=== PATIENT | male | born 1945 | race Caucasian/White ===

== ENCOUNTER 2018-05-12 07:30 | Outpatient (RCR) | payer OTHER, SELFPAY ==
--- NOTE | 2017-10-12 17:45 | PT.OIE ---
Current Diagnoses Pain in right hip (10/12/17) Low back pain (10/12/17) Unspecified abnormalities of gait and mobility (10/12/17) Repeated falls (10/12/17) Weakness (10/12/17) Past Medical History (Last Updated 10/12/17 @ 17:34 by Reina Rider, PT) Afib (Acute) Concussion (Acute) Dizziness (Acute) Fall (Acute) Fall (on) (from) other stairs and steps, sequela (Acute) Heart disease (Acute) Low back pain (Acute) Provider Visit Care Team Role Provider Type Nithin Roman MD Attending Provider Physician Primary Care Provider Specialty: Internal Medicine Address: [address] [place] [address], [facility] Email: Physical Therapy Initial Evaluation PT-OP-A Visit Information Start: 10/12/17 07:21 Freq: Status: Active Protocol: Document 10/12/17 08:15 [facility] (Rec: 10/12/17 17:44 [facility] [id number]) Out-Patient Physical Therapy Visit Information Visit Information Visit Type Initial Evaluation Visit Note 1 PT visit Visit Start Time 08:15 Visit Stop Time 09:00 Total Visit Minutes 45 Visit Number Gcode 1 Number of HEAD MACHINIST Visits 0 PT-OP-B Current Condition Start: 10/12/17 07:21 Freq: Status: Active Protocol: Document 10/12/17 08:15 [facility] (Rec: 10/12/17 17:44 [facility] [id number]) Current Condition History of Current Condition Current Complaints weakness & unsteadiness History of Current Condition Pt was seen by PT about 1 year ago for LBP w/radiculopathy that improved significantly with treatment. He still gets intermittent pain, and is extra careful as he is aware he has a disc bulge. Pt reports intermittently doing his HEP since his last d/c. Pt reports he tripped going [place] the stairs on a cruise 1 month ago. He thinks do to stepping on his shoe lace. He fell down about 7 steps and was assessed by cruise ship staff and then in [place]. Pt reports he hurt his shoulder & hit his head. he was groggy right after, but did not have a bleed. He saw a massage therapist for his shoulder and it is doing better. Reports occasionlly when stepping off a curb or going down stairs he feels a valgus force in his knee with a tweak laterally. Prior Treatments and Tests PT Treatment Goals Patient/Caregiver Goals Improve balance & strength, indep & compliance with HEP, work on lower back, get back into swimming PT-OP-C Subjective Start: 10/12/17 07:21 Freq: Status: Active Protocol: Document 10/12/17 08:15 [facility] (Rec: 10/12/17 17:44 [facility] [id number]) Patient Questionnaires Foot & Ankle Ability Measure- ADL and Sports FAAM-ADL Score 62 FAAM-ADL Impairment 20 to 39% Impaired (Score 50- 66) OP-PT Pain Assessment Location Right Hip Pain Location Details hip/back Description- Other occasional pain PT-OP-D Balance Start: 10/12/17 07:21 Freq: Status: Active Protocol: Document 10/12/17 08:15 [facility] (Rec: 10/12/17 09:03 [facility] [id number]) Balance Tests Waggoner Balance Test Waggoner Balance Test Score 49 Waggoner Impairment Rating 1 to 19% Impaired (Score 45-55 ) Other Other Balance Tests Performed [facility]- PT-OP-G Mobility & Gait Start: 10/12/17 07:21 Freq: Status: Active Protocol: Document 10/12/17 08:15 [facility] (Rec: 10/12/17 09:03 [facility] [id number]) OP Gait Assessment Comments Gait Comments Overall dec push off. Stair Climbing Evaluation Comments Stair Climbing Comments Reciprocal w/ IR with decent R >L PT-OP-M Strength Start: 10/12/17 07:21 Freq: Status: Active Protocol: Document 10/12/17 08:15 [facility] (Rec: 10/12/17 09:03 [facility] [id number]) Hip Strength Hip Manual Muscle Testing Right Flexion (L2) 4 Good Extension (S1) 4- Good- Abduction 4- Good- External Rotation 3+ Fair+ Internal Rotation 3+ Fair+ Comments pain w/IR Left Flexion (L2) 4+ Good+ Extension (S1) 4- Good- Abduction 4- Good- External Rotation 4+ Good+ Internal Rotation 5 Normal Knee Strength Knee Manual Muscle Testing Right Flexion (S2) 4+ Good+ Extension (L3) 4 Good Left Flexion (S2) 4+ Good+ Extension (L3) 4 Good Ankle/Foot Strength Ankle and Foot Manual Muscle Testing Right Dorsiflexion (L4) 4+ Good+ Plantarflexion (S1) 4 Good Left Dorsiflexion (L4) 4+ Good+ Plantarflexion (S1) 4 Good PT-OP-Q Treatments Start: 10/12/17 07:21 Freq: Status: Active Protocol: Document 10/12/17 08:15 [facility] (Rec: 10/12/17 09:03 [facility] [id number]) Therapeutic Exercises Sidelying Exercises 2 Sidelying Exercise Name clamshell Side bilateral 1 Sidelying Exercise Name abd Side bilateral Reps/Minutes 10 PT-OP-T Assessment and Plan Start: 10/12/17 07:21 Freq: Status: Active Protocol: Document 10/12/17 08:15 [facility] (Rec: 10/12/17 17:44 [facility] [id number]) Physical Therapy Assessment Rehab Potential Rehabilitation Potential Good Evaluation Complexity Number of Personal Factors/Comorbidities 1-2 Number of Body Systems Impaired 4 or More Clinical Presentation at Evaluation Evolving Impairments Impairments Balance Functional Activities Gait Strength Goals Four Impairment FAAM Wireline Operator Goal (LTG) Score 80 LTG Duration by Three Impairment walks Correction Goal (LTG) Pt will be able to go on longer walks with iwthout difficulty. LTG Duration by 12/12/17 Two Impairment balance Correction Goal (LTG) DGI 24/24 LTG Duration 12/12/17 One Impairment MMT Short Term Goal (STG) Pt will be independent with HEP. STG Duration 11/11/17 Wireline Operator Goal (LTG) Pt will score 5/5 MMT to allow improvement in his ability to do daily tasks & rec activities. LTG Duration 12/12/17 Physical Therapy Plan Frequency and Duration Frequency of Treatment 2x/Week Duration of Treatment 2 months Plan of Care Start Date 10/12/17 Plan of Care End Date 12/12/17 Therapeutic Interventions Therapeutic Interventions Aquatic Therapy Balance Training Gait Training Home Exercise Program Joint Mobilizations Manual Therapy Self-Care/Home Management Soft Tissue Mobilization Taping Therapeutic Activities Therapeutic Exercises Modalities Cold Pack/Ice Massage Electric Stimulation Hot Packs Ultrasound Next Visit Focus/Plan Next Note Type Treatment Note Next Visit Plan squats, lunges & hip flexor stretch Please Sign and Return: I have reviewed this Plan of Care and certify that the skilled therapy services above are required to meet the patient?s needs. Physician Signature Date Printed Name and Credentials Clinical Instructor Signature Printed Name and Credentials
--- NOTE | 2017-10-12 17:45 | PT.OPPOC ---
Current Diagnoses Pain in right hip (10/12/17) Low back pain (10/12/17) Unspecified abnormalities of gait and mobility (10/12/17) Repeated falls (10/12/17) Weakness (10/12/17) Provider Visit Care Team Role Provider Type Nithin Roman MD Attending Provider Physician Primary Care Provider Specialty: Internal Medicine Address: [address] [place] [address], [facility] Email: Plan Of Care PT-OP-T Assessment and Plan Start: 10/12/17 07:21 Freq: Status: Active Protocol: Document 10/12/17 08:15 [facility] (Rec: 10/12/17 17:44 [facility] [id number]) Physical Therapy Assessment Rehab Potential Rehabilitation Potential Good Evaluation Complexity Number of Personal Factors/Comorbidities 1-2 Number of Body Systems Impaired 4 or More Clinical Presentation at Evaluation Evolving Impairments Impairments Balance Functional Activities Gait Strength Goals Four Impairment FAAM Crop Research Scientist Goal (LTG) Score 80 LTG Duration by Three Impairment walks Crop Research Scientist Goal (LTG) Pt will be able to go on longer walks with iwthout difficulty. LTG Duration by 12/12/17 Two Impairment balance Group Home Goal (LTG) DGI 24 LTG Duration 12/12/17 One Impairment MMT Short Term Goal (STG) Pt will be independent with HEP. STG Duration 11/11/17 Crop Research Scientist Goal (LTG) Pt will score 5/5 MMT to allow improvement in his ability to do daily tasks & rec activities. LTG Duration 12/12/17 Physical Therapy Plan Frequency and Duration Frequency of Treatment 2x/Week Duration of Treatment 2 months Plan of Care Start Date 10/12/17 Plan of Care End Date 12/12/17 Therapeutic Interventions Therapeutic Interventions Aquatic Therapy Balance Training Gait Training Home Exercise Program Joint Mobilizations Manual Therapy Self-Care/Home Management Soft Tissue Mobilization Taping Therapeutic Activities Therapeutic Exercises Modalities Cold Pack/Ice Massage Electric Stimulation Hot Packs Ultrasound Next Visit Focus/Plan Next Note Type Treatment Note Next Visit Plan squats, lunges & hip flexor stretch Plan of Care Dates Plan of Care Start Date 10/12/17 Plan of Care End Date 12/12/17 Please Sign and Return: I have reviewed this Plan of Care and certify that the skilled therapy services above are required to meet the patient?s needs. Physician Signature Date Printed Name and Credentials Clinical Instructor Signature Printed Name and Credentials
--- NOTE | 2017-10-14 09:18 | PT.OTN ---
Current Diagnoses Unspecified abnormalities of gait and mobility (10/14/17) Repeated falls (10/14/17) Physical Therapy Treatment Note PT-OP-A Visit Information Start: 10/12/17 07:21 Freq: Status: Active Protocol: Document 10/14/17 08:18 [facility] (Rec: 10/14/17 09:17 [facility] [id number]) Out-Patient Physical Therapy Visit Information Visit Information Visit Type Treatment Note Visit Note G code 2 Visit Start Time 08:15 Visit Stop Time 09:05 Total Visit Minutes 50 Visit Number 2 Number of SITE PLANNER Visits 0 PT-OP-B Current Condition Start: 10/12/17 07:21 Freq: Status: Active Protocol: Document 10/12/17 08:15 [facility] (Rec: 10/12/17 17:44 [facility] [id number]) Current Condition History of Current Condition Current Complaints weakness & unsteadiness History of Current Condition Pt was seen by PT about 1 year ago for LBP w/radiculopathy that improved significantly with treatment. He still gets intermittent pain, and is extra careful as he is aware he has a disc bulge. Pt reports intermittently doing his HEP since his last d/c. Pt reports he tripped going down the stairs on a cruise 1 month ago. He thinks do to stepping on his shoe lace. He fell down about 7 steps and was assessed by cruise ship staff and then in [place]. Pt reports he hurt his shoulder & hit his head. he was groggy right after, but did not have a bleed. He saw a massage therapist for his shoulder and it is doing better. Reports occasionlly when stepping off a curb or going down stairs he feels a valgus force in his knee with a tweak laterally. Prior Treatments and Tests PT Treatment Goals Patient/Caregiver Goals Improve balance & strength, indep & compliance with HEP, work on lower back, get back into swimming PT-OP-C Subjective Start: 10/12/17 07:21 Freq: Status: Active Protocol: Document 10/14/17 08:18 [facility] (Rec: 10/14/17 09:17 [facility] [id number]) OP-PT Subjective Patient Comments Patient Comments Notes he has been doing some work on his boat so his back was sore last night and was better this AM. PT-OP-D Balance Start: 10/12/17 07:21 Freq: Status: Active Protocol: Document 10/12/17 08:15 [facility] (Rec: 10/12/17 09:03 [facility] [id number]) Balance Tests Waggoner Balance Test Waggoner Balance Test Score 49 Waggoner Impairment Rating 1 to 19% Impaired (Score 45-55 ) Other Other Balance Tests Performed [facility]- PT-OP-G Mobility & Gait Start: 10/12/17 07:21 Freq: Status: Active Protocol: Document 10/12/17 08:15 [facility] (Rec: 10/12/17 09:03 [facility] [id number]) OP Gait Assessment Comments Gait Comments Overall dec push off. Stair Climbing Evaluation Comments Stair Climbing Comments Reciprocal w/ IR with decent R >L PT-OP-M Strength Start: 10/12/17 07:21 Freq: Status: Active Protocol: Document 10/12/17 08:15 [facility] (Rec: 10/12/17 09:03 [facility] [id number]) Hip Strength Hip Manual Muscle Testing Right Flexion (L2) 4 Good Extension (S1) 4- Good- Abduction 4- Good- External Rotation 3+ Fair+ Internal Rotation 3+ Fair+ Comments pain w/IR Left Flexion (L2) 4+ Good+ Extension (S1) 4- Good- Abduction 4- Good- External Rotation 4+ Good+ Internal Rotation 5 Normal Knee Strength Knee Manual Muscle Testing Right Flexion (S2) 4+ Good+ Extension (L3) 4 Good Left Flexion (S2) 4+ Good+ Extension (L3) 4 Good Ankle/Foot Strength Ankle and Foot Manual Muscle Testing Right Dorsiflexion (L4) 4+ Good+ Plantarflexion (S1) 4 Good Left Dorsiflexion (L4) 4+ Good+ Plantarflexion (S1) 4 Good PT-OP-Q Treatments Start: 10/12/17 07:21 Freq: Status: Active Protocol: Document 10/14/17 08:18 [facility] (Rec: 10/14/17 09:17 [facility] [id number]) Cardio Equipment Recumbent Bicycle Duration (Minutes) 5 Resistance 10 Seat Position 12 Gym Equipment Shuttle Balance 1 Details red clips Comments fwd, side: WBOS, NBOS, staggered stance Therapeutic Exercises Sidelying Exercises 3 Sidelying Exercise Name Reverse [facility] Side bilateral Reps/Minutes 10 2 Sidelying Exercise Name clamshell Side bilateral Reps/Minutes 10 1 Sidelying Exercise Name abd Side bilateral Reps/Minutes 10 Standing Exercises 3 Standing Exercise Name squats Comments w/cueing for form & chair behind 2 Standing Exercise Name hip flexor stretch Reps/Minutes B 45 sec hold 1 Standing Exercise Name lunge Reps/Minutes to fatigue Manual Therapy Treatment Soft Tissue Mobilization 1 Body Location QL Mobilization Type Rolling Intensity/Depth Moderate Joint Mobilizations 1 Joint sacrum Direction caudal Body Position Prone PT-OP-T Assessment and Plan Start: 10/12/17 07:21 Freq: Status: Active Protocol: Document 10/14/17 08:18 [facility] (Rec: 10/14/17 09:17 [facility] [id number]) Physical Therapy Assessment Assessment Summary Assessment Pt required cueing for abd & clamshell exercises to avoid his pelvis rolling back. Pt is was challenged by balance board. Physical Therapy Plan Frequency and Duration Frequency of Treatment 2x/Week Duration of Treatment 2 months Plan of Care Start Date 10/12/17 Plan of Care End Date 12/12/17 Next Visit Focus/Plan Next Note Type Treatment Note Next Visit Plan Advance balance & LE strength Please Sign and Return: I have reviewed this Plan of Care and certify that the skilled therapy services above are required to meet the patient?s needs. Physician Signature Date Printed Name and Credentials Clinical Instructor Signature Printed Name and Credentials
--- NOTE | 2017-10-19 09:04 | PT.OTN ---
Current Diagnoses Unspecified abnormalities of gait and mobility (10/19/17) Repeated falls (10/19/17) Physical Therapy Treatment Note PT-OP-A Visit Information Start: 10/12/17 07:21 Freq: Status: Active Protocol: Document 10/19/17 08:20 [facility] (Rec: 10/19/17 09:03 [facility] [id number]) Out-Patient Physical Therapy Visit Information Visit Information Visit Type Treatment Note Visit Note G code 3 Visit Start Time 08:15 Visit Stop Time 09:10 Total Visit Minutes 55 Visit Number 3 Number of CORN CHIP MAKER Visits 0 PT-OP-B Current Condition Start: 10/12/17 07:21 Freq: Status: Active Protocol: Document 10/12/17 08:15 [facility] (Rec: 10/12/17 17:44 [facility] [id number]) Current Condition History of Current Condition Current Complaints weakness & unsteadiness History of Current Condition Pt was seen by PT about 1 year ago for LBP w/radiculopathy that improved significantly with treatment. He still gets intermittent pain, and is extra careful as he is aware he has a disc bulge. Pt reports intermittently doing his HEP since his last d/c. Pt reports he tripped going down the stairs on a cruise 1 month ago. He thinks do to stepping on his shoe lace. He fell down about 7 steps and was assessed by cruise ship staff and then in [place]. Pt reports he hurt his shoulder & hit his head. he was groggy right after, but did not have a bleed. He saw a massage therapist for his shoulder and it is doing better. Reports occasionlly when stepping off a curb or going down stairs he feels a valgus force in his knee with a tweak laterally. Prior Treatments and Tests PT Treatment Goals Patient/Caregiver Goals Improve balance & strength, indep & compliance with HEP, work on lower back, get back into swimming PT-OP-C Subjective Start: 10/12/17 07:21 Freq: Status: Active Protocol: Document 10/19/17 08:20 [facility] (Rec: 10/19/17 09:03 [facility] [id number]) OP-PT Subjective Patient Comments Patient Comments Pt reports he notices a large difference in range with R hip ROM with clamshell PT-OP-D Balance Start: 10/12/17 07:21 Freq: Status: Active Protocol: Document 10/12/17 08:15 [facility] (Rec: 10/12/17 09:03 [facility] [id number]) Balance Tests Waggoner Balance Test Waggoner Balance Test Score 49 Waggoner Impairment Rating 1 to 19% Impaired (Score 45-55 ) Other Other Balance Tests Performed [facility]- PT-OP-G Mobility & Gait Start: 10/12/17 07:21 Freq: Status: Active Protocol: Document 10/12/17 08:15 [facility] (Rec: 10/12/17 09:03 [facility] [id number]) OP Gait Assessment Comments Gait Comments Overall dec push off. Stair Climbing Evaluation Comments Stair Climbing Comments Reciprocal w/ IR with decent R >L PT-OP-M Strength Start: 10/12/17 07:21 Freq: Status: Active Protocol: Document 10/12/17 08:15 [facility] (Rec: 10/12/17 09:03 [facility] [id number]) Hip Strength Hip Manual Muscle Testing Right Flexion (L2) 4 Good Extension (S1) 4- Good- Abduction 4- Good- External Rotation 3+ Fair+ Internal Rotation 3+ Fair+ Comments pain w/IR Left Flexion (L2) 4+ Good+ Extension (S1) 4- Good- Abduction 4- Good- External Rotation 4+ Good+ Internal Rotation 5 Normal Knee Strength Knee Manual Muscle Testing Right Flexion (S2) 4+ Good+ Extension (L3) 4 Good Left Flexion (S2) 4+ Good+ Extension (L3) 4 Good Ankle/Foot Strength Ankle and Foot Manual Muscle Testing Right Dorsiflexion (L4) 4+ Good+ Plantarflexion (S1) 4 Good Left Dorsiflexion (L4) 4+ Good+ Plantarflexion (S1) 4 Good PT-OP-Q Treatments Start: 10/12/17 07:21 Freq: Status: Active Protocol: Document 10/19/17 08:20 [facility] (Rec: 10/19/17 09:03 [facility] [id number]) Cardio Equipment Recumbent Bicycle Duration (Minutes) 5 Resistance 10 Seat Position 12 Gym Equipment Shuttle Balance 1 Details red clips Comments fwd, side: WBOS, NBOS, staggered stance Therapeutic Exercises Standing Exercises 5 Standing Exercise Name fwd/back walk Resistance yellow Equipment Used tband Reps/Minutes 2x20ft Comments no bar 4 Standing Exercise Name sidestep Resistance yellow band Reps/Minutes 2x20ft Comments no bar 3 Standing Exercise Name squats Comments w/cueing for form & chair behind 2 Standing Exercise Name hip flexor stretch Reps/Minutes B 45 sec hold 1 Standing Exercise Name lunge Reps/Minutes to fatigue Neuro Re-Education Treatment Balance Activities 1 Details hurdles Reps/Duration 6x20ft Self-Care/Home Management Treatment Education Other Education tennis ball roll out PT-OP-R Modalities Start: 10/12/17 07:21 Freq: Status: Active Protocol: Document 10/19/17 08:20 [facility] (Rec: 10/19/17 09:04 [facility] [id number]) Hot Pack/Cold Pack Treatment Cold Pack Location LS Patient Position Hooklying Treatment Duration (minutes) 10 PT-OP-T Assessment and Plan Start: 10/12/17 07:21 Freq: Status: Active Protocol: Document 10/19/17 08:20 [facility] (Rec: 10/19/17 09:03 [facility] [id number]) Physical Therapy Assessment Goals Four Impairment FAAM Backhoe Operator Goal (LTG) Score 80 LTG Duration by Three Impairment walks Backhoe Operator Goal (LTG) Pt will be able to go on longer walks with iwthout difficulty. LTG Duration by 12/12/17 Two Impairment balance Fdc Goal (LTG) DGI 24 LTG Duration 12/12/17 One Impairment MMT Short Term Goal (STG) Pt will be independent with HEP. STG Duration 11/11/17 Fdc Goal (LTG) Pt will score 5/5 MMT to allow improvement in his ability to do daily tasks & rec activities. LTG Duration 12/12/17 Assessment Summary Assessment Pt appears to be limited in ER by hip flexors & pirifromis. He was able to do some self release with tennis ball. Improved performance on balance board today Physical Therapy Plan Frequency and Duration Frequency of Treatment 2x/Week Duration of Treatment 2 months Plan of Care Start Date 10/12/17 Plan of Care End Date 12/12/17 Next Visit Focus/Plan Next Note Type Treatment Note Next Visit Plan Advance balance & LE strength; tpods w/ hurdles Please Sign and Return: I have reviewed this Plan of Care and certify that the skilled therapy services above are required to meet the patient?s needs. Physician Signature Date Printed Name and Credentials Clinical Instructor Signature Printed Name and Credentials
--- NOTE | 2017-10-21 08:59 | PT.OTN ---
Current Diagnoses Unspecified abnormalities of gait and mobility (10/21/17) Repeated falls (10/21/17) Physical Therapy Treatment Note PT-OP-A Visit Information Start: 10/12/17 07:21 Freq: Status: Active Protocol: Document 10/21/17 08:20 [facility] (Rec: 10/21/17 08:58 [facility] [id number]) Out-Patient Physical Therapy Visit Information Visit Information Visit Type Treatment Note Visit Note G code 4 Visit Start Time 08:15 Visit Stop Time 09:05 Total Visit Minutes 50 Visit Number 4 Number of ASSOCIATE PATHOLOGIST Visits 0 PT-OP-B Current Condition Start: 10/12/17 07:21 Freq: Status: Active Protocol: Document 10/12/17 08:15 [facility] (Rec: 10/12/17 17:44 [facility] [id number]) Current Condition History of Current Condition Current Complaints weakness & unsteadiness History of Current Condition Pt was seen by PT about 1 year ago for LBP w/radiculopathy that improved significantly with treatment. He still gets intermittent pain, and is extra careful as he is aware he has a disc bulge. Pt reports intermittently doing his HEP since his last d/c. Pt reports he tripped going [place] the stairs on a cruise 1 month ago. He thinks do to stepping on his shoe lace. He fell down about 7 steps and was assessed by cruise ship staff and then in [place]. Pt reports he hurt his shoulder & hit his head. he was groggy right after, but did not have a bleed. He saw a massage therapist for his shoulder and it is doing better. Reports occasionlly when stepping off a curb or going down stairs he feels a valgus force in his knee with a tweak laterally. Prior Treatments and Tests PT Treatment Goals Patient/Caregiver Goals Improve balance & strength, indep & compliance with HEP, work on lower back, get back into swimming PT-OP-C Subjective Start: 10/12/17 07:21 Freq: Status: Active Protocol: Document 10/21/17 08:20 [facility] (Rec: 10/21/17 08:58 [facility] [id number]) OP-PT Subjective Patient Comments Patient Comments Feels looser after last session. PT-OP-D Balance Start: 10/12/17 07:21 Freq: Status: Active Protocol: Document 10/12/17 08:15 [facility] (Rec: 10/12/17 09:03 [facility] [id number]) Balance Tests Waggoner Balance Test Waggoner Balance Test Score 49 Waggoner Impairment Rating 1 to 19% Impaired (Score 45-55 ) Other Other Balance Tests Performed I- PT-OP-G Mobility & Gait Start: 10/12/17 07:21 Freq: Status: Active Protocol: Document 10/12/17 08:15 [facility] (Rec: 10/12/17 09:03 [facility] [id number]) OP Gait Assessment Comments Gait Comments Overall dec push off. Stair Climbing Evaluation Comments Stair Climbing Comments Reciprocal w/ IR with decent R >L PT-OP-M Strength Start: 10/12/17 07:21 Freq: Status: Active Protocol: Document 10/12/17 08:15 [facility] (Rec: 10/12/17 09:03 [facility] [id number]) Hip Strength Hip Manual Muscle Testing Right Flexion (L2) 4 Good Extension (S1) 4- Good- Abduction 4- Good- External Rotation 3+ Fair+ Internal Rotation 3+ Fair+ Comments pain w/IR Left Flexion (L2) 4+ Good+ Extension (S1) 4- Good- Abduction 4- Good- External Rotation 4+ Good+ Internal Rotation 5 Normal Knee Strength Knee Manual Muscle Testing Right Flexion (S2) 4+ Good+ Extension (L3) 4 Good Left Flexion (S2) 4+ Good+ Extension (L3) 4 Good Ankle/Foot Strength Ankle and Foot Manual Muscle Testing Right Dorsiflexion (L4) 4+ Good+ Plantarflexion (S1) 4 Good Left Dorsiflexion (L4) 4+ Good+ Plantarflexion (S1) 4 Good PT-OP-Q Treatments Start: 10/12/17 07:21 Freq: Status: Active Protocol: Document 10/21/17 08:20 [facility] (Rec: 10/21/17 08:58 [facility] [id number]) Cardio Equipment Recumbent Bicycle Duration (Minutes) 5 Resistance 10 Seat Position 12 Gym Equipment Shuttle Balance 1 Details red clips Comments fwd, side: WBOS, NBOS, staggered stance Therapeutic Exercises Standing Exercises 5 Standing Exercise Name fwd/back walk Resistance yellow Equipment Used tband Reps/Minutes 2x20ft Comments no bar 4 Standing Exercise Name sidestep Resistance yellow band Reps/Minutes 2x20ft Comments no bar 3 Standing Exercise Name squats Reps/Minutes 25 Comments w/cueing for form & chair behind 2 Standing Exercise Name hip flexor stretch Reps/Minutes B 45 sec hold 1 Standing Exercise Name lunge Reps/Minutes to fatigue Manual Therapy Treatment Soft Tissue Mobilization 1 Body Location QL Mobilization Type Rolling Intensity/Depth Moderate Neuro Re-Education Treatment Balance Activities 3 Details tandem walk Reps/Duration 20ft x4 1 Details hurdles w/pods Reps/Duration 6 laps PT-OP-R Modalities Start: 10/12/17 07:21 Freq: Status: Active Protocol: Document 10/21/17 08:20 [facility] (Rec: 10/21/17 08:58 [facility] [id number]) Hot Pack/Cold Pack Treatment Cold Pack Location LS Patient Position Hooklying Treatment Duration (minutes) 10 PT-OP-T Assessment and Plan Start: 10/12/17 07:21 Freq: Status: Active Protocol: Document 10/21/17 08:20 [facility] (Rec: 10/21/17 08:58 [facility] [id number]) Physical Therapy Assessment Goals Four Impairment FAAM Assisted Goal (LTG) Score 80 LTG Duration by Three Impairment walks Assisted Goal (LTG) Pt will be able to go on longer walks with iwthout difficulty. LTG Duration by 12/12/17 Two Impairment balance Floral Arranger Goal (LTG) DGI 24/24 LTG Duration 12/12/17 One Impairment MMT Short Term Goal (STG) Pt will be independent with HEP. STG Duration 11/11/17 Floral Arranger Goal (LTG) Pt will score 5/5 MMT to allow improvement in his ability to do daily tasks & rec activities. LTG Duration 12/12/17 Assessment Summary Assessment Pt did well w/balance pods w/ hurdles but did have good challenge w/ this exercise. cont challenge w/ resist sidestep. Physical Therapy Plan Frequency and Duration Frequency of Treatment 2x/Week Duration of Treatment 2 months Plan of Care Start Date 10/12/17 Plan of Care End Date 12/12/17 Next Visit Focus/Plan Next Note Type Treatment Note Next Visit Plan Advance balance & LE strength Please Sign and Return: I have reviewed this Plan of Care and certify that the skilled therapy services above are required to meet the patient?s needs. Physician Signature Date Printed Name and Credentials Clinical Instructor Signature Printed Name and Credentials
--- NOTE | 2017-10-26 08:59 | PT.OTN ---
Current Diagnoses Unspecified abnormalities of gait and mobility (10/26/17) Repeated falls (10/26/17) Physical Therapy Treatment Note PT-OP-A Visit Information Start: 10/12/17 07:21 Freq: Status: Active Protocol: Document 10/26/17 08:13 [facility] (Rec: 10/26/17 08:59 [facility] [id number]) Out-Patient Physical Therapy Visit Information Visit Information Visit Type Treatment Note Visit Note G code 5 Visit Start Time 08:15 Visit Stop Time 09:05 Total Visit Minutes 50 Visit Number 5 Number of DUMP MOTORMAN Visits 0 PT-OP-B Current Condition Start: 10/12/17 07:21 Freq: Status: Active Protocol: Document 10/12/17 08:15 [facility] (Rec: 10/12/17 17:44 [facility] [id number]) Current Condition History of Current Condition Current Complaints weakness & unsteadiness History of Current Condition Pt was seen by PT about 1 year ago for LBP w/radiculopathy that improved significantly with treatment. He still gets intermittent pain, and is extra careful as he is aware he has a disc bulge. Pt reports intermittently doing his HEP since his last d/c. Pt reports he tripped going down the stairs on a cruise 1 month ago. He thinks do to stepping on his shoe lace. He fell down about 7 steps and was assessed by cruise ship staff and then in [place]. Pt reports he hurt his shoulder & hit his head. he was groggy right after, but did not have a bleed. He saw a massage therapist for his shoulder and it is doing better. Reports occasionlly when stepping off a curb or going down stairs he feels a valgus force in his knee with a tweak laterally. Prior Treatments and Tests PT Treatment Goals Patient/Caregiver Goals Improve balance & strength, indep & compliance with HEP, work on lower back, get back into swimming PT-OP-C Subjective Start: 10/12/17 07:21 Freq: Status: Active Protocol: Document 10/26/17 08:13 [facility] (Rec: 10/26/17 08:59 [facility] [id number]) OP-PT Subjective Patient Comments Patient Comments Reports went out on the boat and it went well. No problem with back or balance. PT-OP-D Balance Start: 10/12/17 07:21 Freq: Status: Active Protocol: Document 10/12/17 08:15 [facility] (Rec: 10/12/17 09:03 [facility] [id number]) Balance Tests Waggoner Balance Test Waggoner Balance Test Score 49 Waggoner Impairment Rating 1 to 19% Impaired (Score 45-55 ) Other Other Balance Tests Performed I- PT-OP-G Mobility & Gait Start: 10/12/17 07:21 Freq: Status: Active Protocol: Document 10/12/17 08:15 [facility] (Rec: 10/12/17 09:03 [facility] [id number]) OP Gait Assessment Comments Gait Comments Overall dec push off. Stair Climbing Evaluation Comments Stair Climbing Comments Reciprocal w/ IR with decent R >L PT-OP-M Strength Start: 10/12/17 07:21 Freq: Status: Active Protocol: Document 10/12/17 08:15 [facility] (Rec: 10/12/17 09:03 [facility] [id number]) Hip Strength Hip Manual Muscle Testing Right Flexion (L2) 4 Good Extension (S1) 4- Good- Abduction 4- Good- External Rotation 3+ Fair+ Internal Rotation 3+ Fair+ Comments pain w/IR Left Flexion (L2) 4+ Good+ Extension (S1) 4- Good- Abduction 4- Good- External Rotation 4+ Good+ Internal Rotation 5 Normal Knee Strength Knee Manual Muscle Testing Right Flexion (S2) 4+ Good+ Extension (L3) 4 Good Left Flexion (S2) 4+ Good+ Extension (L3) 4 Good Ankle/Foot Strength Ankle and Foot Manual Muscle Testing Right Dorsiflexion (L4) 4+ Good+ Plantarflexion (S1) 4 Good Left Dorsiflexion (L4) 4+ Good+ Plantarflexion (S1) 4 Good PT-OP-Q Treatments Start: 10/12/17 07:21 Freq: Status: Active Protocol: Document 10/26/17 08:13 [facility] (Rec: 10/26/17 08:59 [facility] [id number]) Cardio Equipment Recumbent Bicycle Duration (Minutes) 5 Resistance 10 Seat Position 12 Gym Equipment Shuttle Balance 1 Details red clips Comments fwd, side: WBOS, NBOS, staggered stance Therapeutic Exercises Standing Exercises 5 Standing Exercise Name fwd/back walk Resistance yellow Equipment Used tband Reps/Minutes 2x20ft Comments no bar 4 Standing Exercise Name sidestep Resistance yellow band Reps/Minutes 2x20ft Comments no bar 2 Standing Exercise Name hip flexor stretch Reps/Minutes B 45 sec hold 1 Standing Exercise Name lunge Reps/Minutes 10 Manual Therapy Treatment Soft Tissue Mobilization 2 Body Location glutes R Mobilization Type Rolling Sustained Pressure Intensity/Depth Moderate Joint Mobilizations 2 Joint hip on axis R ER FM Body Position Prone Comments w/neuro re edu into ER 1 Joint sacrum Direction caudal Body Position Prone Neuro Re-Education Treatment Balance Activities 1 Details hurdles w/pods Reps/Duration 6 laps Self-Care/Home Management Treatment Education Other Education tennis ball roll out PT-OP-R Modalities Start: 10/12/17 07:21 Freq: Status: Active Protocol: Document 10/26/17 08:13 [facility] (Rec: 10/26/17 08:59 [facility] [id number]) Hot Pack/Cold Pack Treatment Cold Pack Location LS Patient Position Hooklying Treatment Duration (minutes) 10 PT-OP-T Assessment and Plan Start: 10/12/17 07:21 Freq: Status: Active Protocol: Document 10/26/17 08:13 [facility] (Rec: 10/26/17 08:59 [facility] [id number]) Physical Therapy Assessment Goals Four Impairment FAAM Wastewater Project Manager Goal (LTG) Score 80 LTG Duration by Three Impairment walks Halfway Goal (LTG) Pt will be able to go on longer walks with iwthout difficulty. LTG Duration by 12/12/17 Two Impairment balance Wastewater Project Manager Goal (LTG) DGI 24/24 LTG Duration 12/12/17 One Impairment MMT Short Term Goal (STG) Pt will be independent with HEP. STG Duration 11/11/17 Halfway Goal (LTG) Pt will score 5/5 MMT to allow improvement in his ability to do daily tasks & rec activities. LTG Duration 12/12/17 Assessment Summary Assessment Improving with balance exercises. Fatigues with resisted side steps still. Improving gluteal mobility Physical Therapy Plan Frequency and Duration Frequency of Treatment 2x/Week Duration of Treatment 2 months Plan of Care Start Date 10/12/17 Plan of Care End Date 12/12/17 Next Visit Focus/Plan Next Note Type Treatment Note Next Visit Plan Advance balance & LE strength
--- NOTE | 2017-10-28 09:00 | PT.OTN ---
Current Diagnoses Unspecified abnormalities of gait and mobility (10/28/17) Repeated falls (10/28/17) Physical Therapy Treatment Note PT-OP-A Visit Information Start: 10/12/17 07:21 Freq: Status: Active Protocol: Document 10/28/17 08:15 [facility] (Rec: 10/28/17 09:00 [facility] [id number]) Out-Patient Physical Therapy Visit Information Visit Information Visit Type Treatment Note Visit Note G code 6 Visit Start Time 08:15 Visit Stop Time 09:05 Total Visit Minutes 50 Visit Number 6 Number of BELT FIXER Visits 0 PT-OP-B Current Condition Start: 10/12/17 07:21 Freq: Status: Active Protocol: Document 10/12/17 08:15 [facility] (Rec: 10/12/17 17:44 [facility] [id number]) Current Condition History of Current Condition Current Complaints weakness & unsteadiness History of Current Condition Pt was seen by PT about 1 year ago for LBP w/radiculopathy that improved significantly with treatment. He still gets intermittent pain, and is extra careful as he is aware he has a disc bulge. Pt reports intermittently doing his HEP since his last d/c. Pt reports he tripped going down the stairs on a cruise 1 month ago. He thinks do to stepping on his shoe lace. He fell down about 7 steps and was assessed by cruise ship staff and then in [place]. Pt reports he hurt his shoulder & hit his head. he was groggy right after, but did not have a bleed. He saw a massage therapist for his shoulder and it is doing better. Reports occasionlly when stepping off a curb or going down stairs he feels a valgus force in his knee with a tweak laterally. Prior Treatments and Tests PT Treatment Goals Patient/Caregiver Goals Improve balance & strength, indep & compliance with HEP, work on lower back, get back into swimming PT-OP-C Subjective Start: 10/12/17 07:21 Freq: Status: Active Protocol: Document 10/28/17 08:15 [facility] (Rec: 10/28/17 09:00 [facility] [id number]) OP-PT Subjective Patient Comments Patient Comments Reports went for a long walk yesterday and acheived 8k steps. Feels good today. PT-OP-D Balance Start: 10/12/17 07:21 Freq: Status: Active Protocol: Document 10/12/17 08:15 [facility] (Rec: 10/12/17 09:03 [facility] [id number]) Balance Tests Waggoner Balance Test Waggoner Balance Test Score 49 Waggoner Impairment Rating 1 to 19% Impaired (Score 45-55 ) Other Other Balance Tests Performed I- PT-OP-G Mobility & Gait Start: 10/12/17 07:21 Freq: Status: Active Protocol: Document 10/12/17 08:15 [facility] (Rec: 10/12/17 09:03 [facility] [id number]) OP Gait Assessment Comments Gait Comments Overall dec push off. Stair Climbing Evaluation Comments Stair Climbing Comments Reciprocal w/ IR with decent R >L PT-OP-M Strength Start: 10/12/17 07:21 Freq: Status: Active Protocol: Document 10/12/17 08:15 [facility] (Rec: 10/12/17 09:03 [facility] [id number]) Hip Strength Hip Manual Muscle Testing Right Flexion (L2) 4 Good Extension (S1) 4- Good- Abduction 4- Good- External Rotation 3+ Fair+ Internal Rotation 3+ Fair+ Comments pain w/IR Left Flexion (L2) 4+ Good+ Extension (S1) 4- Good- Abduction 4- Good- External Rotation 4+ Good+ Internal Rotation 5 Normal Knee Strength Knee Manual Muscle Testing Right Flexion (S2) 4+ Good+ Extension (L3) 4 Good Left Flexion (S2) 4+ Good+ Extension (L3) 4 Good Ankle/Foot Strength Ankle and Foot Manual Muscle Testing Right Dorsiflexion (L4) 4+ Good+ Plantarflexion (S1) 4 Good Left Dorsiflexion (L4) 4+ Good+ Plantarflexion (S1) 4 Good PT-OP-Q Treatments Start: 10/12/17 07:21 Freq: Status: Active Protocol: Document 10/28/17 08:15 [facility] (Rec: 10/28/17 09:00 [facility] [id number]) Cardio Equipment Recumbent Bicycle Duration (Minutes) 5 Resistance 10 Seat Position 12 Gym Equipment Shuttle Balance 1 Details red clips Comments fwd, side: WBOS, NBOS, staggered stance Therapeutic Exercises Standing Exercises 5 Standing Exercise Name fwd/back walk Resistance yellow Equipment Used tband Reps/Minutes 2x20ft Comments no bar 4 Standing Exercise Name sidestep Resistance yellow band Reps/Minutes 2x20ft Comments no bar 1 Standing Exercise Name lunge Reps/Minutes 10 Neuro Re-Education Treatment Balance Activities 2 Details step ups to bosu Reps/Duration 10 B Comments 1 rail 1 Details hurdles w/pods Reps/Duration 6 laps PT-OP-R Modalities Start: 10/12/17 07:21 Freq: Status: Active Protocol: Document 10/28/17 08:15 [facility] (Rec: 10/28/17 09:00 [facility] [id number]) Hot Pack/Cold Pack Treatment Cold Pack Location LS Patient Position Hooklying Treatment Duration (minutes) 10 PT-OP-T Assessment and Plan Start: 10/12/17 07:21 Freq: Status: Active Protocol: Document 10/28/17 08:15 [facility] (Rec: 10/28/17 09:00 [facility] [id number]) Physical Therapy Assessment Goals Four Impairment FAAM Snf Goal (LTG) Score 80 LTG Duration by Three Impairment walks Snf Goal (LTG) Pt will be able to go on longer walks with iwthout difficulty. LTG Duration by 12/12/17 Two Impairment balance Cake Washer Goal (LTG) DGI 24/24 LTG Duration 12/12/17 One Impairment MMT Short Term Goal (STG) Pt will be independent with HEP. STG Duration 11/11/17 Snf Goal (LTG) Pt will score 5/5 MMT to allow improvement in his ability to do daily tasks & rec activities. LTG Duration 12/12/17 Assessment Summary Assessment Pt required inc use of rail w/ step ups onto bosu. Improving soft tissue mobility of hip. Physical Therapy Plan Frequency and Duration Frequency of Treatment 2x/Week Duration of Treatment 2 months Plan of Care Start Date 10/12/17 Plan of Care End Date 12/12/17 Next Visit Focus/Plan Next Note Type Treatment Note Next Visit Plan Advance balance & LE strength (especially glute)
--- NOTE | 2017-11-02 08:59 | PT.OTN ---
Current Diagnoses Unspecified abnormalities of gait and mobility (11/02/17) Repeated falls (11/02/17) Physical Therapy Treatment Note PT-OP-A Visit Information Start: 10/12/17 07:21 Freq: Status: Active Protocol: Document 11/02/17 08:18 [facility] (Rec: 11/02/17 08:59 [facility] [id number]) Out-Patient Physical Therapy Visit Information Visit Information Visit Type Treatment Note Visit Note G code 7 Visit Start Time 08:15 Visit Stop Time 09:05 Total Visit Minutes 50 Visit Number 7 Number of DISTRICT SALES LEADER Visits 0 PT-OP-B Current Condition Start: 10/12/17 07:21 Freq: Status: Active Protocol: Document 10/12/17 08:15 [facility] (Rec: 10/12/17 17:44 [facility] [id number]) Current Condition History of Current Condition Current Complaints weakness & unsteadiness History of Current Condition Pt was seen by PT about 1 year ago for LBP w/radiculopathy that improved significantly with treatment. He still gets intermittent pain, and is extra careful as he is aware he has a disc bulge. Pt reports intermittently doing his HEP since his last d/c. Pt reports he tripped going [place] the stairs on a cruise 1 month ago. He thinks do to stepping on his shoe lace. He fell down about 7 steps and was assessed by cruise ship staff and then in [place]. Pt reports he hurt his shoulder & hit his head. he was groggy right after, but did not have a bleed. He saw a massage therapist for his shoulder and it is doing better. Reports occasionlly when stepping off a curb or going down stairs he feels a valgus force in his knee with a tweak laterally. Prior Treatments and Tests PT Treatment Goals Patient/Caregiver Goals Improve balance & strength, indep & compliance with HEP, work on lower back, get back into swimming PT-OP-C Subjective Start: 10/12/17 07:21 Freq: Status: Active Protocol: Document 11/02/17 08:18 [facility] (Rec: 11/02/17 08:59 [facility] [id number]) OP-PT Subjective Patient Comments Patient Comments Reports a couple walks since last session. He did his longest walk yesterday and had pain in his ant ankle on L that has subsided some today but was still a little wobbly this AM PT-OP-D Balance Start: 10/12/17 07:21 Freq: Status: Active Protocol: Document 10/12/17 08:15 [facility] (Rec: 10/12/17 09:03 [facility] [id number]) Balance Tests Waggoner Balance Test Waggoner Balance Test Score 49 Waggoner Impairment Rating 1 to 19% Impaired (Score 45-55 ) Other Other Balance Tests Performed DGI- PT-OP-G Mobility & Gait Start: 10/12/17 07:21 Freq: Status: Active Protocol: Document 10/12/17 08:15 [facility] (Rec: 10/12/17 09:03 [facility] [id number]) OP Gait Assessment Comments Gait Comments Overall dec push off. Stair Climbing Evaluation Comments Stair Climbing Comments Reciprocal w/ IR with decent R >L PT-OP-M Strength Start: 10/12/17 07:21 Freq: Status: Active Protocol: Document 10/12/17 08:15 [facility] (Rec: 10/12/17 09:03 [facility] [id number]) Hip Strength Hip Manual Muscle Testing Right Flexion (L2) 4 Good Extension (S1) 4- Good- Abduction 4- Good- External Rotation 3+ Fair+ Internal Rotation 3+ Fair+ Comments pain w/IR Left Flexion (L2) 4+ Good+ Extension (S1) 4- Good- Abduction 4- Good- External Rotation 4+ Good+ Internal Rotation 5 Normal Knee Strength Knee Manual Muscle Testing Right Flexion (S2) 4+ Good+ Extension (L3) 4 Good Left Flexion (S2) 4+ Good+ Extension (L3) 4 Good Ankle/Foot Strength Ankle and Foot Manual Muscle Testing Right Dorsiflexion (L4) 4+ Good+ Plantarflexion (S1) 4 Good Left Dorsiflexion (L4) 4+ Good+ Plantarflexion (S1) 4 Good PT-OP-Q Treatments Start: 10/12/17 07:21 Freq: Status: Active Protocol: Document 11/02/17 08:18 [facility] (Rec: 11/02/17 08:59 [facility] [id number]) Cardio Equipment Recumbent Bicycle Duration (Minutes) 6 Resistance 10 Seat Position 12 Gym Equipment Shuttle Balance 1 Details red clips Comments fwd, side: WBOS, NBOS (while tossing balloon) & staggered stance Therapeutic Exercises Standing Exercises 5 Standing Exercise Name fwd/back walk Resistance yellow Equipment Used tband Reps/Minutes 2x20ft Comments no bar 4 Standing Exercise Name sidestep Resistance yellow band Reps/Minutes 2x20ft Comments no bar 2 Standing Exercise Name hip flexor stretch Reps/Minutes B 45 sec hold Manual Therapy Treatment Soft Tissue Mobilization 3 Body Location sup scar tissue Mobilization Type Rolling Intensity/Depth Moderate 1 Body Location QL Mobilization Type Rolling Intensity/Depth Moderate Neuro Re-Education Treatment Balance Activities 2 Details step ups to bosu Reps/Duration 10 B Comments 1 rail 3 Details tandem walk Reps/Duration 20ft x4 1 Details hurdles w/pods Reps/Duration 8 laps PT-OP-R Modalities Start: 10/12/17 07:21 Freq: Status: Active Protocol: Document 11/02/17 08:18 [facility] (Rec: 11/02/17 08:59 [facility] [id number]) Hot Pack/Cold Pack Treatment Cold Pack Location LS Patient Position Hooklying Treatment Duration (minutes) 10 PT-OP-T Assessment and Plan Start: 10/12/17 07:21 Freq: Status: Active Protocol: Document 11/02/17 08:18 [facility] (Rec: 11/02/17 08:59 [facility] [id number]) Physical Therapy Assessment Goals Four Impairment FAAM Clinical Rehabilitation Aide Goal (LTG) Score 80 LTG Duration by Three Impairment walks Clinical Rehabilitation Aide Goal (LTG) Pt will be able to go on longer walks with iwthout difficulty. LTG Duration achieved Two Impairment balance Clinical Rehabilitation Aide Goal (LTG) DGI 24/24 LTG Duration 12/12/17 One Impairment MMT Short Term Goal (STG) Pt will be independent with HEP. STG Duration achieved Correction Goal (LTG) Pt will score 5/5 MMT to allow improvement in his ability to do daily tasks & rec activities. LTG Duration 12/12/17 Assessment Summary Assessment Pt is improving with balance on board & with dynamic challenges. He had c/o sharp pain under scar. Physical Therapy Plan Frequency and Duration Frequency of Treatment 2x/Week Duration of Treatment 2 months Plan of Care Start Date 10/12/17 Plan of Care End Date 12/12/17 Next Visit Focus/Plan Next Note Type Treatment Note Next Visit Plan Advance balance & LE strength (especially glute)
--- NOTE | 2017-11-11 09:40 | PT.OTN ---
Current Diagnoses Unspecified abnormalities of gait and mobility (11/11/17) Repeated falls (11/11/17) Physical Therapy Treatment Note PT-OP-A Visit Information Start: 10/12/17 07:21 Freq: Status: Active Protocol: Document 11/11/17 08:09 [facility] (Rec: 11/11/17 09:40 [facility] [id number]) Out-Patient Physical Therapy Visit Information Visit Information Visit Type Treatment Note Visit Note 8 total visits Visit Start Time 08:15 Visit Stop Time 08:55 Total Visit Minutes 40 Visit Number 8/10 Number of DIE GRINDER Visits 0 PT-OP-B Current Condition Start: 10/12/17 07:21 Freq: Status: Active Protocol: Document 10/12/17 08:15 [facility] (Rec: 10/12/17 17:44 [facility] [id number]) Current Condition History of Current Condition Current Complaints weakness & unsteadiness History of Current Condition Pt was seen by PT about 1 year ago for LBP w/radiculopathy that improved significantly with treatment. He still gets intermittent pain, and is extra careful as he is aware he has a disc bulge. Pt reports intermittently doing his HEP since his last d/c. Pt reports he tripped going down the stairs on a cruise 1 month ago. He thinks do to stepping on his shoe lace. He fell down about 7 steps and was assessed by cruise ship staff and then in [place]. Pt reports he hurt his shoulder & hit his head. he was groggy right after, but did not have a bleed. He saw a massage therapist for his shoulder and it is doing better. Reports occasionlly when stepping off a curb or going down stairs he feels a valgus force in his knee with a tweak laterally. Prior Treatments and Tests PT Treatment Goals Patient/Caregiver Goals Improve balance & strength, indep & compliance with HEP, work on lower back, get back into swimming PT-OP-C Subjective Start: 10/12/17 07:21 Freq: Status: Active Protocol: Document 11/11/17 08:09 [facility] (Rec: 11/11/17 09:40 [facility] [id number]) OP-PT Subjective Patient Comments Patient Comments Reports compliance with HEP and wants more glute exercises . PT-OP-D Balance Start: 10/12/17 07:21 Freq: Status: Active Protocol: Document 10/12/17 08:15 [facility] (Rec: 10/12/17 09:03 [facility] [id number]) Balance Tests Waggoner Balance Test Waggoner Balance Test Score 49 Waggoner Impairment Rating 1 to 19% Impaired (Score 45-55 ) Other Other Balance Tests Performed I- PT-OP-G Mobility & Gait Start: 10/12/17 07:21 Freq: Status: Active Protocol: Document 10/12/17 08:15 [facility] (Rec: 10/12/17 09:03 [facility] [id number]) OP Gait Assessment Comments Gait Comments Overall dec push off. Stair Climbing Evaluation Comments Stair Climbing Comments Reciprocal w/ IR with decent R >L PT-OP-M Strength Start: 10/12/17 07:21 Freq: Status: Active Protocol: Document 10/12/17 08:15 [facility] (Rec: 10/12/17 09:03 [facility] [id number]) Hip Strength Hip Manual Muscle Testing Right Flexion (L2) 4 Good Extension (S1) 4- Good- Abduction 4- Good- External Rotation 3+ Fair+ Internal Rotation 3+ Fair+ Comments pain w/IR Left Flexion (L2) 4+ Good+ Extension (S1) 4- Good- Abduction 4- Good- External Rotation 4+ Good+ Internal Rotation 5 Normal Knee Strength Knee Manual Muscle Testing Right Flexion (S2) 4+ Good+ Extension (L3) 4 Good Left Flexion (S2) 4+ Good+ Extension (L3) 4 Good Ankle/Foot Strength Ankle and Foot Manual Muscle Testing Right Dorsiflexion (L4) 4+ Good+ Plantarflexion (S1) 4 Good Left Dorsiflexion (L4) 4+ Good+ Plantarflexion (S1) 4 Good PT-OP-Q Treatments Start: 10/12/17 07:21 Freq: Status: Active Protocol: Document 11/11/17 08:09 [facility] (Rec: 11/11/17 09:40 [facility] [id number]) Cardio Equipment Recumbent Bicycle Duration (Minutes) 6 Resistance 10 Seat Position 12 Gym Equipment Shuttle Balance 1 Details red clips Comments fwd, side: WBOS, NBOS (while tossing balloon) & staggered stance Therapeutic Exercises Standing Exercises 5 Standing Exercise Name fwd/back walk Resistance yellow Equipment Used tband Reps/Minutes 2x20ft Comments no bar 4 Standing Exercise Name sidestep Resistance yellow band Reps/Minutes 2x20ft Comments no bar 3 Standing Exercise Name hip ext Resistance L1 Reps/Minutes 20 Manual Therapy Treatment Soft Tissue Mobilization 2 Body Location glutes R Mobilization Type Rolling Sustained Pressure Intensity/Depth Moderate Joint Mobilizations 2 Joint hip on axis R ER FM Body Position Prone Comments w/neuro re edu into ER 1 Joint sacrum Direction caudal, IRA Body Position Prone Neuro Re-Education Treatment Balance Activities 4 Details walking w/head turns Reps/Duration 4 laps 2 Details step ups to bosu Reps/Duration 10 B Comments 1 rail 3 Details tandem walk Reps/Duration 20ft x4 PT-OP-R Modalities Start: 10/12/17 07:21 Freq: Status: Active Protocol: Document 11/02/17 08:18 [facility] (Rec: 11/02/17 08:59 [facility] [id number]) Hot Pack/Cold Pack Treatment Cold Pack Location LS Patient Position Hooklying Treatment Duration (minutes) 10 PT-OP-T Assessment and Plan Start: 10/12/17 07:21 Freq: Status: Active Protocol: Document 11/11/17 08:09 [facility] (Rec: 11/11/17 09:40 [facility] [id number]) Physical Therapy Assessment Goals Four Impairment FAAM Phytochemistry Professor Goal (LTG) Score 80 LTG Duration by Two Impairment balance Skilled Nursing Goal (LTG) DGI 24/24 LTG Duration 12/12/17 One Impairment MMT Short Term Goal (STG) Pt will be independent with HEP. STG Duration achieved Skilled Nursing Goal (LTG) Pt will score 5/5 MMT to allow improvement in his ability to do daily tasks & rec activities. LTG Duration 12/12/17 Assessment Summary Assessment Pt had inc difficulty with R>L head turns. He is improving with stability during balance board & all other exercises. Side steps, ext & fwd/back walking was given as HEP Physical Therapy Plan Frequency and Duration Frequency of Treatment 2x/Week Duration of Treatment 2 months Plan of Care Start Date 10/12/17 Plan of Care End Date 12/12/17 Next Visit Focus/Plan Next Note Type Treatment Note Next Visit Plan Cont to work on head turns with balance
--- NOTE | 2017-11-25 11:40 | PT.OTN ---
Current Diagnoses Unspecified abnormalities of gait and mobility (11/25/17) Repeated falls (11/25/17) Physical Therapy Treatment Note PT-OP-A Visit Information Start: 10/12/17 07:21 Freq: Status: Active Protocol: Document 11/25/17 08:18 [facility] (Rec: 11/25/17 11:40 [facility] [id number]) Out-Patient Physical Therapy Visit Information Visit Information Visit Type Treatment Note Visit Note 9 total visits Visit Start Time 08:15 Visit Stop Time 08:55 Total Visit Minutes 40 Visit Number 9/10 Number of RADAR ENGINEERING TEACHER Visits 0 PT-OP-B Current Condition Start: 10/12/17 07:21 Freq: Status: Active Protocol: Document 10/12/17 08:15 [facility] (Rec: 10/12/17 17:44 [facility] [id number]) Current Condition History of Current Condition Current Complaints weakness & unsteadiness History of Current Condition Pt was seen by PT about 1 year ago for LBP w/radiculopathy that improved significantly with treatment. He still gets intermittent pain, and is extra careful as he is aware he has a disc bulge. Pt reports intermittently doing his HEP since his last d/c. Pt reports he tripped going down the stairs on a cruise 1 month ago. He thinks do to stepping on his shoe lace. He fell down about 7 steps and was assessed by cruise ship staff and then in [place]. Pt reports he hurt his shoulder & hit his head. he was groggy right after, but did not have a bleed. He saw a massage therapist for his shoulder and it is doing better. Reports occasionlly when stepping off a curb or going down stairs he feels a valgus force in his knee with a tweak laterally. Prior Treatments and Tests PT Treatment Goals Patient/Caregiver Goals Improve balance & strength, indep & compliance with HEP, work on lower back, get back into swimming PT-OP-C Subjective Start: 10/12/17 07:21 Freq: Status: Active Protocol: Document 11/25/17 08:18 [facility] (Rec: 11/25/17 11:40 [facility] [id number]) OP-PT Subjective Patient Comments Patient Comments Overall has been doing well. Compliance with HEP. PT-OP-D Balance Start: 10/12/17 07:21 Freq: Status: Active Protocol: Document 10/12/17 08:15 [facility] (Rec: 10/12/17 09:03 [facility] [id number]) Balance Tests Waggoner Balance Test Waggoenr Balance Test Score 49 Waggoner Impairment Rating 1 to 19% Impaired (Score 45-55 ) Other Other Balance Tests Performed DGI- PT-OP-G Mobility & Gait Start: 10/12/17 07:21 Freq: Status: Active Protocol: Document 10/12/17 08:15 [facility] (Rec: 10/12/17 09:03 [facility] [id number]) OP Gait Assessment Comments Gait Comments Overall dec push off. Stair Climbing Evaluation Comments Stair Climbing Comments Reciprocal w/ IR with decent R >L PT-OP-M Strength Start: 10/12/17 07:21 Freq: Status: Active Protocol: Document 10/12/17 08:15 [facility] (Rec: 10/12/17 09:03 [facility] [id number]) Hip Strength Hip Manual Muscle Testing Right Flexion (L2) 4 Good Extension (S1) 4- Good- Abduction 4- Good- External Rotation 3+ Fair+ Internal Rotation 3+ Fair+ Comments pain w/IR Left Flexion (L2) 4+ Good+ Extension (S1) 4- Good- Abduction 4- Good- External Rotation 4+ Good+ Internal Rotation 5 Normal Knee Strength Knee Manual Muscle Testing Right Flexion (S2) 4+ Good+ Extension (L3) 4 Good Left Flexion (S2) 4+ Good+ Extension (L3) 4 Good Ankle/Foot Strength Ankle and Foot Manual Muscle Testing Right Dorsiflexion (L4) 4+ Good+ Plantarflexion (S1) 4 Good Left Dorsiflexion (L4) 4+ Good+ Plantarflexion (S1) 4 Good PT-OP-Q Treatments Start: 10/12/17 07:21 Freq: Status: Active Protocol: Document 11/25/17 08:18 [facility] (Rec: 11/25/17 11:40 [facility] [id number]) Cardio Equipment Recumbent Bicycle Duration (Minutes) 6 Resistance 10 Seat Position 12 Gym Equipment Shuttle Balance 1 Details red clips Comments fwd, side: WBOS, NBOS (while tossing balloon) & staggered stance Therapeutic Exercises Standing Exercises 4 Standing Exercise Name sidestep w/squat Resistance yellow band Reps/Minutes 2x20ft Comments no bar Neuro Re-Education Treatment Balance Activities 2 Details step ups to bosu Reps/Duration 15 B Comments rail prn for balance 1 Details hurdles w/pods Reps/Duration 8 laps PT-OP-R Modalities Start: 10/12/17 07:21 Freq: Status: Active Protocol: Document 11/02/17 08:18 [facility] (Rec: 11/02/17 08:59 [facility] [id number]) Hot Pack/Cold Pack Treatment Cold Pack Location LS Patient Position Hooklying Treatment Duration (minutes) 10 PT-OP-T Assessment and Plan Start: 10/12/17 07:21 Freq: Status: Active Protocol: Document 11/25/17 08:18 [facility] (Rec: 11/25/17 11:40 [facility] [id number]) Physical Therapy Assessment Goals Four Impairment FAAM Cabinet Mounter Goal (LTG) Score 80 LTG Duration by Two Impairment balance Cabinet Mounter Goal (LTG) DGI 24/24 LTG Duration 12/12/17 One Impairment MMT Short Term Goal (STG) Pt will be independent with HEP. STG Duration achieved Assisted Goal (LTG) Pt will score 5/5 MMT to allow improvement in his ability to do daily tasks & rec activities. LTG Duration 12/12/17 Assessment Summary Assessment Pt cont to improve with his balance and LE strength overall. He cont to have giving out of his knee which concerns him and his for future falls. Physical Therapy Plan Frequency and Duration Frequency of Treatment 2x/Week Duration of Treatment 2 months Plan of Care Start Date 10/12/17 Plan of Care End Date 12/12/17 Next Visit Focus/Plan Next Note Type Treatment Note Next Visit Plan Cont to work on head turns with balance
--- NOTE | 2017-12-14 09:52 | PT.OTN ---
Current Diagnoses Unspecified abnormalities of gait and mobility (12/14/17) Repeated falls (12/14/17) Physical Therapy Treatment Note PT-OP-A Visit Information Start: 10/12/17 07:21 Freq: Status: Active Protocol: Document 12/14/17 09:04 [facility] (Rec: 12/14/17 09:52 [facility] [id number]) Out-Patient Physical Therapy Visit Information Visit Information Visit Type Progress Note Visit Note 10 total visits Visit Start Time 09:00 Visit Stop Time 09:45 Total Visit Minutes 45 Visit Number 05/19 Number of WIG STYLIST Visits 0 PT-OP-B Current Condition Start: 10/12/17 07:21 Freq: Status: Active Protocol: Document 10/12/17 08:15 [facility] (Rec: 10/12/17 17:44 [facility] [id number]) Current Condition History of Current Condition Current Complaints weakness & unsteadiness History of Current Condition Pt was seen by PT about 1 year ago for LBP w/radiculopathy that improved significantly with treatment. He still gets intermittent pain, and is extra careful as he is aware he has a disc bulge. Pt reports intermittently doing his HEP since his last d/c. Pt reports he tripped going down the stairs on a cruise 1 month ago. He thinks do to stepping on his shoe lace. He fell down about 7 steps and was assessed by cruise ship staff and then in [place]. Pt reports he hurt his shoulder & hit his head. he was groggy right after, but did not have a bleed. He saw a massage therapist for his shoulder and it is doing better. Reports occasionlly when stepping off a curb or going down stairs he feels a valgus force in his knee with a tweak laterally. Prior Treatments and Tests PT Treatment Goals Patient/Caregiver Goals Improve balance & strength, indep & compliance with HEP, work on lower back, get back into swimming PT-OP-C Subjective Start: 10/12/17 07:21 Freq: Status: Active Protocol: Document 12/14/17 09:04 [facility] (Rec: 12/14/17 09:52 [facility] [id number]) OP-PT Subjective Patient Comments Patient Comments Reports doing squats and clamshells and floor exercises . asked about current balance & strength. PT-OP-D Balance Start: 10/12/17 07:21 Freq: Status: Active Protocol: Document 12/14/17 09:04 [facility] (Rec: 12/14/17 09:52 [facility] [id number]) Balance Tests Other Other Balance Tests Performed DGI 24 PT-OP-G Mobility & Gait Start: 10/12/17 07:21 Freq: Status: Active Protocol: Document 10/12/17 08:15 [facility] (Rec: 10/12/17 09:03 [facility] [id number]) OP Gait Assessment Comments Gait Comments Overall dec push off. Stair Climbing Evaluation Comments Stair Climbing Comments Reciprocal w/ IR with decent R >L PT-OP-M Strength Start: 10/12/17 07:21 Freq: Status: Active Protocol: Document 12/14/17 09:04 [facility] (Rec: 12/14/17 09:52 [facility] [id number]) Hip Strength Hip Manual Muscle Testing Right Flexion (L2) 5 Normal Extension (S1) 4 Good Abduction 4 Good External Rotation 4- Good- Internal Rotation 4+ Good+ Left Flexion (L2) 5 Normal Extension (S1) 4 Good Abduction 5 Normal External Rotation 5 Normal Internal Rotation 5 Normal Knee Strength Knee Manual Muscle Testing Right Flexion (S2) 5 Normal Extension (L3) 5 Normal Left Flexion (S2) 5 Normal Extension (L3) 5 Normal Ankle/Foot Strength Ankle and Foot Manual Muscle Testing Right Dorsiflexion (L4) 5 Normal Plantarflexion (S1) 5 Normal Left Dorsiflexion (L4) 5 Normal Plantarflexion (S1) 5 Normal PT-OP-Q Treatments Start: 10/12/17 07:21 Freq: Status: Active Protocol: Document 12/14/17 09:04 [facility] (Rec: 12/14/17 09:52 [facility] [id number]) Cardio Equipment Recumbent Bicycle Duration (Minutes) 6 Resistance 10 Seat Position 12 Gym Equipment Shuttle Balance 1 Details red clips Comments fwd, side: WBOS, NBOS (while tossing balloon) & staggered stance Therapeutic Exercises Sidelying Exercises 3 Sidelying Exercise Name abd Side right Reps/Minutes 20 2 Sidelying Exercise Name clamshell Equipment Used L1 Reps/Minutes 30 Standing Exercises 5 Standing Exercise Name fwd/back walk Resistance yellow Equipment Used tband Reps/Minutes 2x20ft Comments no bar 4 Standing Exercise Name sidestep w/squat Resistance yellow band Reps/Minutes 2x20ft Comments no bar PT-OP-R Modalities Start: 10/12/17 07:21 Freq: Status: Active Protocol: Document 11/02/17 08:18 [facility] (Rec: 11/02/17 08:59 [facility] [id number]) Hot Pack/Cold Pack Treatment Cold Pack Location LS Patient Position Hooklying Treatment Duration (minutes) 10 PT-OP-T Assessment and Plan Start: 10/12/17 07:21 Freq: Status: Active Protocol: Document 12/14/17 09:04 [facility] (Rec: 12/14/17 09:52 [facility] [id number]) Physical Therapy Assessment Goals Four Impairment FAAM Envelope Folding Machine Operator Goal (LTG) Score 80 LTG Duration by 02/08/18-improving Two Impairment balance Usp Goal (LTG) DGI 2424 LTG Duration achieved One Impairment MMT Short Term Goal (STG) Pt will be independent with HEP. STG Duration achieved Envelope Folding Machine Operator Goal (LTG) Pt will score 5/5 MMT to allow improvement in his ability to do daily tasks & rec activities. LTG Duration 02/08/18 Assessment Summary Assessment Pt had made excellent improvement in balance & LE stength. Reviewed form w/ HEP & pt understands. Physical Therapy Plan Frequency and Duration Frequency of Treatment 1x/Week Duration of Treatment 2 months Plan of Care Start Date 12/14/17 Plan of Care End Date 02/13/18 Therapeutic Interventions Therapeutic Interventions Aquatic Therapy Balance Training Gait Training Home Exercise Program Joint Mobilizations Manual Therapy Soft Tissue Mobilization Taping Therapeutic Exercises Modalities Cold Pack/Ice Massage Electric Stimulation Hot Packs Ultrasound Next Visit Focus/Plan Next Note Type Treatment Note Next Visit Plan Work on unstable surfaces & NBOS
--- NOTE | 2017-12-14 09:53 | PT.OPPOC ---
Current Diagnoses Unspecified abnormalities of gait and mobility (12/14/17) Repeated falls (12/14/17) Provider Visit Care Team Role Provider Type Nithin Roman MD Attending Provider Physician Primary Care Provider Specialty: Internal Medicine Address: [address] [place] [address], [id number] Email: Plan Of Care PT-OP-T Assessment and Plan Start: 10/12/17 07:21 Freq: Status: Active Protocol: Document 12/14/17 09:04 [facility] (Rec: 12/14/17 09:52 [facility] [id number]) Physical Therapy Assessment Goals Four Impairment FAAM Residential Goal (LTG) Score 80 LTG Duration by 02/08/18-improving Two Impairment balance Survey Party Chief Goal (LTG) DGI LTG Duration achieved One Impairment MMT Short Term Goal (STG) Pt will be independent with HEP. STG Duration achieved Residential Goal (LTG) Pt will score 5/5 MMT to allow improvement in his ability to do daily tasks & rec activities. LTG Duration 02/08/18 Assessment Summary Assessment Pt had made excellent improvement in balance & LE stength. Reviewed form w/ HEP & pt understands. Physical Therapy Plan Frequency and Duration Frequency of Treatment 1x/Week Duration of Treatment 2 months Plan of Care Start Date 12/14/17 Plan of Care End Date 02/13/18 Therapeutic Interventions Therapeutic Interventions Aquatic Therapy Balance Training Gait Training Home Exercise Program Joint Mobilizations Manual Therapy Soft Tissue Mobilization Taping Therapeutic Exercises Modalities Cold Pack/Ice Massage Electric Stimulation Hot Packs Ultrasound Next Visit Focus/Plan Next Note Type Treatment Note Next Visit Plan Work on unstable surfaces & NBOS Plan of Care Dates Plan of Care Start Date 12/14/17 Plan of Care End Date 02/13/18 Please Sign and Return: I have reviewed this Plan of Care and certify that the skilled therapy services above are required to meet the patient?s needs. Physician Signature Date Printed Name and Credentials Clinical Instructor Signature Printed Name and Credentials
--- NOTE | 2018-01-04 14:32 | PT.OTN ---
Current Diagnoses Unspecified abnormalities of gait and mobility (01/04/18) Repeated falls (01/04/18) Physical Therapy Treatment Note PT-OP-A Visit Information Start: 10/12/17 07:21 Freq: Status: Active Protocol: Document 01/04/18 13:45 [facility] (Rec: 01/04/18 14:31 [facility] [id number]) Out-Patient Physical Therapy Visit Information Visit Information Visit Type Treatment Note Visit Note 11 total visits Visit Start Time 13:45 Visit Stop Time 14:30 Total Visit Minutes 45 Visit Number 2/10 Number of BUNDLE SORTER Visits 0 PT-OP-B Current Condition Start: 10/12/17 07:21 Freq: Status: Active Protocol: Document 10/12/17 08:15 [facility] (Rec: 10/12/17 17:44 [facility] [id number]) Current Condition History of Current Condition Current Complaints weakness & unsteadiness History of Current Condition Pt was seen by PT about 1 year ago for LBP w/radiculopathy that improved significantly with treatment. He still gets intermittent pain, and is extra careful as he is aware he has a disc bulge. Pt reports intermittently doing his HEP since his last d/c. Pt reports he tripped going down the stairs on a cruise 1 month ago. He thinks do to stepping on his shoe lace. He fell down about 7 steps and was assessed by cruise ship staff and then in [place]. Pt reports he hurt his shoulder & hit his head. he was groggy right after, but did not have a bleed. He saw a massage therapist for his shoulder and it is doing better. Reports occasionlly when stepping off a curb or going down stairs he feels a valgus force in his knee with a tweak laterally. Prior Treatments and Tests PT Treatment Goals Patient/Caregiver Goals Improve balance & strength, indep & compliance with HEP, work on lower back, get back into swimming PT-OP-C Subjective Start: 10/12/17 07:21 Freq: Status: Active Protocol: Document 01/04/18 13:45 [facility] (Rec: 01/04/18 14:31 [facility] [id number]) OP-PT Subjective Patient Comments Patient Comments Reports he got back recently from a boat trip, so didn't do his formal exercises on the boat. Pt fell on a floating dock . PT-OP-D Balance Start: 10/12/17 07:21 Freq: Status: Active Protocol: Document 12/14/17 09:04 [facility] (Rec: 12/14/17 09:52 [facility] [id number]) Balance Tests Other Other Balance Tests Performed DGI 24 PT-OP-G Mobility & Gait Start: 10/12/17 07:21 Freq: Status: Active Protocol: Document 10/12/17 08:15 [facility] (Rec: 10/12/17 09:03 [facility] [id number]) OP Gait Assessment Comments Gait Comments Overall dec push off. Stair Climbing Evaluation Comments Stair Climbing Comments Reciprocal w/ IR with decent R >L PT-OP-M Strength Start: 10/12/17 07:21 Freq: Status: Active Protocol: Document 12/14/17 09:04 [facility] (Rec: 12/14/17 09:52 [facility] [id number]) Hip Strength Hip Manual Muscle Testing Right Flexion (L2) 5 Normal Extension (S1) 4 Good Abduction 4 Good External Rotation 4- Good- Internal Rotation 4+ Good+ Left Flexion (L2) 5 Normal Extension (S1) 4 Good Abduction 5 Normal External Rotation 5 Normal Internal Rotation 5 Normal Knee Strength Knee Manual Muscle Testing Right Flexion (S2) 5 Normal Extension (L3) 5 Normal Left Flexion (S2) 5 Normal Extension (L3) 5 Normal Ankle/Foot Strength Ankle and Foot Manual Muscle Testing Right Dorsiflexion (L4) 5 Normal Plantarflexion (S1) 5 Normal Left Dorsiflexion (L4) 5 Normal Plantarflexion (S1) 5 Normal PT-OP-Q Treatments Start: 10/12/17 07:21 Freq: Status: Active Protocol: Document 01/04/18 13:45 [facility] (Rec: 01/04/18 14:31 [facility] [id number]) Cardio Equipment Recumbent Bicycle Duration (Minutes) 6 Resistance 10 Seat Position 12 Gym Equipment Shuttle Balance 1 Details red clips Comments fwd, side: WBOS, NBOS & staggered stance Therapeutic Exercises Standing Exercises 5 Standing Exercise Name fwd/back walk Resistance red Equipment Used tband Reps/Minutes 2x20ft Comments no bar 4 Standing Exercise Name sidestep w/squat Resistance red band Reps/Minutes B 20ft Comments no bar 2 Standing Exercise Name hip flexor stretch Reps/Minutes B 30 sec hold 1 Standing Exercise Name sidestep Resistance red tband Reps/Minutes 20ft B Neuro Re-Education Treatment Balance Activities 5 Details grapevines Reps/Duration 2x15ft 2 Details step ups to bosu Reps/Duration 15 B Comments rail prn for balance 3 Details tandem walk Reps/Duration 20ft x4 1 Details hurdles w/pods Reps/Duration 8 laps Self-Care/Home Management Treatment Education Other Education Discussed POC w/ pt and & importance of balance exercises at home PT-OP-R Modalities Start: 10/12/17 07:21 Freq: Status: Active Protocol: Document 11/02/17 08:18 [facility] (Rec: 11/02/17 08:59 [facility] [id number]) Hot Pack/Cold Pack Treatment Cold Pack Location LS Patient Position Hooklying Treatment Duration (minutes) 10 PT-OP-T Assessment and Plan Start: 10/12/17 07:21 Freq: Status: Active Protocol: Document 01/04/18 13:45 [facility] (Rec: 01/04/18 14:31 [facility] [id number]) Physical Therapy Assessment Goals Four Impairment FAAM Prison Goal (LTG) Score 80 LTG Duration by 02/08/18-improving One Impairment MMT Short Term Goal (STG) Pt will be independent with HEP. STG Duration achieved Prison Goal (LTG) Pt will score 5/5 MMT to allow improvement in his ability to do daily tasks & rec activities. LTG Duration 02/08/18 Assessment Summary Assessment Pt is cont to do well with balance, but did have inc difficulty with step ups on bosu. Physical Therapy Plan Frequency and Duration Frequency of Treatment 1x/Week Duration of Treatment 2 months Plan of Care Start Date 12/14/17 Plan of Care End Date 02/13/18 Next Visit Focus/Plan Next Note Type Treatment Note Next Visit Plan Work on unstable surfaces & NBOS
--- NOTE | 2018-02-11 10:51 | PT.OTN ---
Current Diagnoses Unspecified abnormalities of gait and mobility (02/11/18) Repeated falls (02/11/18) Physical Therapy Treatment Note PT-OP-A Visit Information Start: 10/12/17 07:21 Freq: Status: Active Protocol: Document 02/11/18 08:20 [facility] (Rec: 02/11/18 10:14 [facility] [id number]) Out-Patient Physical Therapy Visit Information Visit Information Visit Type Treatment Note Visit Note 12 total visits Visit Start Time 08:20 Visit Stop Time 09:00 Total Visit Minutes 40 Visit Number 3/10 Number of TYPESETTERS PRINTER Visits 0 PT-OP-B Current Condition Start: 10/12/17 07:21 Freq: Status: Active Protocol: Document 10/12/17 08:15 [facility] (Rec: 10/12/17 17:44 [facility] [id number]) Current Condition History of Current Condition Current Complaints weakness & unsteadiness History of Current Condition Pt was seen by PT about 1 year ago for LBP w/radiculopathy that improved significantly with treatment. He still gets intermittent pain, and is extra careful as he is aware he has a disc bulge. Pt reports intermittently doing his HEP since his last d/c. Pt reports he tripped going down the stairs on a cruise 1 month ago. He thinks do to stepping on his shoe lace. He fell down about 7 steps and was assessed by cruise ship staff and then in [place]. Pt reports he hurt his shoulder & hit his head. he was groggy right after, but did not have a bleed. He saw a massage therapist for his shoulder and it is doing better. Reports occasionlly when stepping off a curb or going down stairs he feels a valgus force in his knee with a tweak laterally. Prior Treatments and Tests PT Treatment Goals Patient/Caregiver Goals Improve balance & strength, indep & compliance with HEP, work on lower back, get back into swimming PT-OP-C Subjective Start: 10/12/17 07:21 Freq: Status: Active Protocol: Document 02/11/18 08:20 [facility] (Rec: 02/11/18 10:14 [facility] [id number]) OP-PT Subjective Patient Comments Patient Comments Pt reports he has been getting cramps in his calves in the night that wake him up. it started after he did a lot of new stretching. Reports it comes and goes after new activities. PT-OP-D Balance Start: 10/12/17 07:21 Freq: Status: Active Protocol: Document 02/11/18 08:20 [facility] (Rec: 02/11/18 10:16 [facility] [id number]) Balance Tests Other Other Balance Tests Performed Functional balance assessment: PT-OP-G Mobility & Gait Start: 10/12/17 07:21 Freq: Status: Active Protocol: Document 10/12/17 08:15 [facility] (Rec: 10/12/17 09:03 [facility] [id number]) OP Gait Assessment Comments Gait Comments Overall dec push off. Stair Climbing Evaluation Comments Stair Climbing Comments Reciprocal w/ IR with decent R >L PT-OP-M Strength Start: 10/12/17 07:21 Freq: Status: Active Protocol: Document 02/11/18 08:20 [facility] (Rec: 02/11/18 10:14 [facility] [id number]) Hip Strength Hip Manual Muscle Testing Right Flexion (L2) 4 Good Extension (S1) 4 Good Abduction 4+ Good+ External Rotation 3- Fair- Internal Rotation 4+ Good+ Comments very limited in ER ROM Left Flexion (L2) 4 Good Extension (S1) 5 Normal Abduction 5 Normal External Rotation 5 Normal Internal Rotation 5 Normal Knee Strength Knee Manual Muscle Testing Right Flexion (S2) 5 Normal Extension (L3) 5 Normal Left Flexion (S2) 5 Normal Extension (L3) 5 Normal PT-OP-Q Treatments Start: 10/12/17 07:21 Freq: Status: Active Protocol: Document 02/11/18 08:20 [facility] (Rec: 02/11/18 10:14 [facility] [id number]) Cardio Equipment Recumbent Bicycle Duration (Minutes) 6 Resistance 10 Seat Position 12 Therapeutic Exercises Sidelying Exercises 2 Sidelying Exercise Name clachris Reps/Minutes 8 Comments radiates to back, pt says L4- 5 Manual Therapy Treatment Joint Mobilizations 2 Joint innominate Direction L caudal FM 1 Joint sacrum Direction caudal, IRA Body Position Prone PT-OP-R Modalities Start: 10/12/17 07:21 Freq: Status: Active Protocol: Document 11/02/17 08:18 [facility] (Rec: 11/02/17 08:59 [facility] [id number]) Hot Pack/Cold Pack Treatment Cold Pack Location LS Patient Position Hooklying Treatment Duration (minutes) 10 PT-OP-T Assessment and Plan Start: 10/12/17 07:21 Freq: Status: Active Protocol: Document 02/11/18 08:20 [facility] (Rec: 02/11/18 10:14 [facility] [id number]) Physical Therapy Assessment Impairments Impairments Balance Functional Mobility Gait Pain Posture ROM Soft Tissue Mobility Strength Goals Five Impairment FGA Mcc Goal (LTG) score to 28/30 to show improvement in balance LTG Duration 04/10/18 Four Impairment FAAM Grapple Crew Leader Goal (LTG) Score 80 LTG Duration by 04/10/18-improving One Impairment MMT Short Term Goal (STG) Pt will be independent with HEP. STG Duration achieved Mcc Goal (LTG) Pt will score 5/5 MMT to allow improvement in his ability to do daily tasks & rec activities. LTG Duration 04/10/18-improving Assessment Summary Assessment Pt is improving in strength. Significant pelvis restrictions that require further mobilization. He is improving in strength with HEP but does demonstrate dec balance by FGA Physical Therapy Plan Frequency and Duration Frequency of Treatment 1x/Week Duration of Treatment 2 months Plan of Care Start Date 02/11/18 Plan of Care End Date 04/13/18 Therapeutic Interventions Therapeutic Interventions Aquatic Therapy Balance Training Gait Training Home Exercise Program Joint Mobilizations Manual Therapy Soft Tissue Mobilization Taping Therapeutic Exercises Modalities Cold Pack/Ice Massage Electric Stimulation Hot Packs Ultrasound Next Visit Focus/Plan Next Note Type Treatment Note Next Visit Plan Work on unstable surfaces & NBOS; work on pelvis & try clamshells
--- NOTE | 2018-02-11 10:51 | PT.OPPOC ---
Current Diagnoses Unspecified abnormalities of gait and mobility (02/11/18) Repeated falls (02/11/18) Provider Visit Care Team Role Provider Type Nithin Roman MD Attending Provider Physician Primary Care Provider Specialty: Internal Medicine Address: [address] [place] [address], [phone] Email: Plan Of Care PT-OP-T Assessment and Plan Start: 10/12/17 07:21 Freq: Status: Active Protocol: Document 02/11/18 08:20 [facility] (Rec: 02/11/18 10:14 [facility] [id number]) Physical Therapy Assessment Impairments Impairments Balance Functional Mobility Gait Pain Posture ROM Soft Tissue Mobility Strength Goals Five Impairment FGA Hand Outside Cutter Goal (LTG) score to 28/30 to show improvement in balance LTG Duration 04/10/18 Four Impairment FAAM Fpc Goal (LTG) Score 80 LTG Duration by 04/10/18-improving One Impairment MMT Short Term Goal (STG) Pt will be independent with HEP. STG Duration achieved Fpc Goal (LTG) Pt will score 5/5 MMT to allow improvement in his ability to do daily tasks & rec activities. LTG Duration 04/10/18-improving Assessment Summary Assessment Pt is improving in strength. Significant pelvis restrictions that require further mobilization. He is improving in strength with HEP but does demonstrate dec balance by FGA Physical Therapy Plan Frequency and Duration Frequency of Treatment 1x/Week Duration of Treatment 2 months Plan of Care Start Date 02/11/18 Plan of Care End Date 04/13/18 Therapeutic Interventions Therapeutic Interventions Aquatic Therapy Balance Training Gait Training Home Exercise Program Joint Mobilizations Manual Therapy Soft Tissue Mobilization Taping Therapeutic Exercises Modalities Cold Pack/Ice Massage Electric Stimulation Hot Packs Ultrasound Next Visit Focus/Plan Next Note Type Treatment Note Next Visit Plan Work on unstable surfaces & NBOS; work on pelvis & try clamshells Plan of Care Dates Plan of Care Start Date 02/11/18 Plan of Care End Date 04/13/18 Please Sign and Return: I have reviewed this Plan of Care and certify that the skilled therapy services above are required to meet the patient?s needs. Physician Signature Date Printed Name and Credentials Clinical Instructor Signature Printed Name and Credentials
--- NOTE | 2018-02-17 09:45 | PT.OTN ---
Current Diagnoses Unspecified abnormalities of gait and mobility (02/17/18) Repeated falls (02/17/18) Physical Therapy Treatment Note PT-OP-A Visit Information Start: 10/12/17 07:21 Freq: Status: Active Protocol: Document 02/17/18 08:21 [facility] (Rec: 02/17/18 09:45 [facility] [id number]) Out-Patient Physical Therapy Visit Information Visit Information Visit Type Treatment Note Visit Note 13 total visits Visit Start Time 09:00 Visit Stop Time 09:40 Total Visit Minutes 40 Visit Number 4/10 Number of CLINIC OFFICE COORDINATOR Visits 0 PT-OP-B Current Condition Start: 10/12/17 07:21 Freq: Status: Active Protocol: Document 10/12/17 08:15 [facility] (Rec: 10/12/17 17:44 [facility] [id number]) Current Condition History of Current Condition Current Complaints weakness & unsteadiness History of Current Condition Pt was seen by PT about 1 year ago for LBP w/radiculopathy that improved significantly with treatment. He still gets intermittent pain, and is extra careful as he is aware he has a disc bulge. Pt reports intermittently doing his HEP since his last d/c. Pt reports he tripped going down the stairs on a cruise 1 month ago. He thinks do to stepping on his shoe lace. He fell down about 7 steps and was assessed by cruise ship staff and then in [place]. Pt reports he hurt his shoulder & hit his head. he was groggy right after, but did not have a bleed. He saw a massage therapist for his shoulder and it is doing better. Reports occasionlly when stepping off a curb or going down stairs he feels a valgus force in his knee with a tweak laterally. Prior Treatments and Tests PT Treatment Goals Patient/Caregiver Goals Improve balance & strength, indep & compliance with HEP, work on lower back, get back into swimming PT-OP-C Subjective Start: 10/12/17 07:21 Freq: Status: Active Protocol: Document 02/17/18 08:21 [facility] (Rec: 02/17/18 09:45 [facility] [id number]) OP-PT Subjective Patient Comments Patient Comments Pt reports cramps in B HS this morning and still getting calf cramps. Occasional twinges in hip PT-OP-D Balance Start: 10/12/17 07:21 Freq: Status: Active Protocol: Document 02/11/18 08:20 [facility] (Rec: 02/11/18 10:16 [facility] [id number]) Balance Tests Other Other Balance Tests Performed Functional balance assessment: PT-OP-G Mobility & Gait Start: 10/12/17 07:21 Freq: Status: Active Protocol: Document 10/12/17 08:15 [facility] (Rec: 10/12/17 09:03 [facility] [id number]) OP Gait Assessment Comments Gait Comments Overall dec push off. Stair Climbing Evaluation Comments Stair Climbing Comments Reciprocal w/ IR with decent R >L PT-OP-M Strength Start: 10/12/17 07:21 Freq: Status: Active Protocol: Document 02/11/18 08:20 [facility] (Rec: 02/11/18 10:14 [facility] [id number]) Hip Strength Hip Manual Muscle Testing Right Flexion (L2) 4 Good Extension (S1) 4 Good Abduction 4+ Good+ External Rotation 3- Fair- Internal Rotation 4+ Good+ Comments very limited in ER ROM Left Flexion (L2) 4 Good Extension (S1) 5 Normal Abduction 5 Normal External Rotation 5 Normal Internal Rotation 5 Normal Knee Strength Knee Manual Muscle Testing Right Flexion (S2) 5 Normal Extension (L3) 5 Normal Left Flexion (S2) 5 Normal Extension (L3) 5 Normal PT-OP-Q Treatments Start: 10/12/17 07:21 Freq: Status: Active Protocol: Document 02/17/18 08:21 [facility] (Rec: 02/17/18 09:45 [facility] [id number]) Cardio Equipment Recumbent Bicycle Duration (Minutes) 6 Resistance 10 Seat Position 12 Gym Equipment Shuttle Balance 1 Details red clips Comments fwd, side: WBOS, NBOS (while tossing balloon) & staggered stance Therapeutic Exercises Sidelying Exercises 2 Sidelying Exercise Name clamshell Reps/Minutes 30 Comments focus on form Other Exercises 1 Other Exercise Name quadruped hip ER exercise Comments neutral core Neuro Re-Education Treatment Balance Activities 3 Details tandem walk Reps/Duration 20ft x6 PT-OP-R Modalities Start: 10/12/17 07:21 Freq: Status: Active Protocol: Document 11/02/17 08:18 [facility] (Rec: 11/02/17 08:59 [facility] [id number]) Hot Pack/Cold Pack Treatment Cold Pack Location LS Patient Position Hooklying Treatment Duration (minutes) 10 PT-OP-T Assessment and Plan Start: 10/12/17 07:21 Freq: Status: Active Protocol: Document 02/17/18 08:21 [facility] (Rec: 02/17/18 09:45 [facility] [id number]) Physical Therapy Assessment Goals Five Impairment FGA Floor Covering Printer Assistant Goal (LTG) score to 28/30 to show improvement in balance LTG Duration 04/10/18 Four Impairment FAAM [facility] Goal (LTG) Score 80 LTG Duration by 04/10/18-improving One Impairment MMT Short Term Goal (STG) Pt will be independent with HEP. STG Duration achieved Floor Covering Printer Assistant Goal (LTG) Pt will score 5/5 MMT to allow improvement in his ability to do daily tasks & rec activities. LTG Duration 04/10/18-improving Assessment Summary Assessment Pt cont to require cueing with clamshell exercise. he has difficulty with tandem and required cueing for wt shift during exercise. Physical Therapy Plan Frequency and Duration Frequency of Treatment 1x/Week Duration of Treatment 2 months Plan of Care Start Date 02/11/18 Plan of Care End Date 04/13/18 Next Visit Focus/Plan Next Note Type Treatment Note Next Visit Plan Cont to work on pelvis and cont to work on balance tasks.
--- NOTE | 2018-02-24 11:45 | PT.OTN ---
Current Diagnoses Unspecified abnormalities of gait and mobility (02/24/18) Repeated falls (02/24/18) Physical Therapy Treatment Note PT-OP-A Visit Information Start: 10/12/17 07:21 Freq: Status: Active Protocol: Document 02/24/18 11:32 ML (Rec: 02/24/18 11:45 ML [id number]) Out-Patient Physical Therapy Visit Information Visit Information Visit Type Treatment Note Visit Note 14 total visits Visit Start Time 09:00 Visit Stop Time 09:45 Total Visit Minutes 45 Visit Number 5/10 Number of CART DRIVER Visits 0 PT-OP-B Current Condition Start: 10/12/17 07:21 Freq: Status: Active Protocol: Document 10/12/17 08:15 [facility] (Rec: 10/12/17 17:44 [facility] [id number]) Current Condition History of Current Condition Current Complaints weakness & unsteadiness History of Current Condition Pt was seen by PT about 1 year ago for LBP w/radiculopathy that improved significantly with treatment. He still gets intermittent pain, and is extra careful as he is aware he has a disc bulge. Pt reports intermittently doing his HEP since his last d/c. Pt reports he tripped going down the stairs on a cruise 1 month ago. He thinks do to stepping on his shoe lace. He fell down about 7 steps and was assessed by cruise ship staff and then in [employer]. Pt reports he hurt his shoulder & hit his head. he was groggy right after, but did not have a bleed. He saw a massage therapist for his shoulder and it is doing better. Reports occasionlly when stepping off a curb or going down stairs he feels a valgus force in his knee with a tweak laterally. Prior Treatments and Tests PT Treatment Goals Patient/Caregiver Goals Improve balance & strength, indep & compliance with HEP, work on lower back, get back into swimming PT-OP-C Subjective Start: 10/12/17 07:21 Freq: Status: Active Protocol: Document 02/24/18 11:32 ML (Rec: 02/24/18 11:45 ML [id number]) OP-PT Subjective Patient Comments Patient Comments Pt brought in his exercise sheet from home and addressed the questions that he had. Pt reported still having cramps at night in his L leg occassionally. PT-OP-D Balance Start: 10/12/17 07:21 Freq: Status: Active Protocol: Document 02/11/18 08:20 [facility] (Rec: 02/11/18 10:16 [facility] [id number]) Balance Tests Other Other Balance Tests Performed Functional balance assessment: PT-OP-G Mobility & Gait Start: 10/12/17 07:21 Freq: Status: Active Protocol: Document 10/12/17 08:15 [facility] (Rec: 10/12/17 09:03 [facility] [id number]) OP Gait Assessment Comments Gait Comments Overall dec push off. Stair Climbing Evaluation Comments Stair Climbing Comments Reciprocal w/ IR with decent R >L PT-OP-M Strength Start: 10/12/17 07:21 Freq: Status: Active Protocol: Document 02/11/18 08:20 [facility] (Rec: 02/11/18 10:14 [facility] [id number]) Hip Strength Hip Manual Muscle Testing Right Flexion (L2) 4 Good Extension (S1) 4 Good Abduction 4+ Good+ External Rotation 3- Fair- Internal Rotation 4+ Good+ Comments very limited in ER ROM Left Flexion (L2) 4 Good Extension (S1) 5 Normal Abduction 5 Normal External Rotation 5 Normal Internal Rotation 5 Normal Knee Strength Knee Manual Muscle Testing Right Flexion (S2) 5 Normal Extension (L3) 5 Normal Left Flexion (S2) 5 Normal Extension (L3) 5 Normal PT-OP-Q Treatments Start: 10/12/17 07:21 Freq: Status: Active Protocol: Document 02/24/18 11:32 ML (Rec: 02/24/18 11:45 ML [id number]) Cardio Equipment Recumbent Bicycle Duration (Minutes) 7 Resistance 10 Seat Position 12 Therapeutic Exercises Supine Exercises 1 Supine Exercise Name quad stretch Side right Reps/Minutes 30 sec hold Comments mau test position Sidelying Exercises 3 Sidelying Exercise Name abd Side right Reps/Minutes 20 Comments addresses set up and IR component in which pt was unable to do Standing Exercises 2 Standing Exercise Name hip flexor stretch Reps/Minutes B 30 sec hold Manual Therapy Treatment Soft Tissue Mobilization 4 Body Location rectus femoris and TFL Mobilization Type Myofascial Release Rolling Sustained Pressure Body Position Supine Comments mau test position, CR with knee flex/ext PT-OP-R Modalities Start: 10/12/17 07:21 Freq: Status: Active Protocol: Document 11/02/17 08:18 [facility] (Rec: 11/02/17 08:59 [facility] [id number]) Hot Pack/Cold Pack Treatment Cold Pack Location LS Patient Position Hooklying Treatment Duration (minutes) 10 PT-OP-T Assessment and Plan Start: 10/12/17 07:21 Freq: Status: Active Protocol: Document 02/24/18 11:32 ML (Rec: 02/24/18 11:45 ML [id number]) Physical Therapy Assessment Goals Five Impairment FGA Clerk Rating Goal (LTG) score to 28/30 to show improvement in balance LTG Duration 04/10/18 Four Impairment FAAM Alf Goal (LTG) Score 80 LTG Duration by 04/10/18-improving One Impairment MMT Short Term Goal (STG) Pt will be independent with HEP. STG Duration achieved Alf Goal (LTG) Pt will score 5/5 MMT to allow improvement in his ability to do daily tasks & rec activities. LTG Duration 04/10/18-improving Assessment Summary Assessment Pt demonstrated understanding for his hip abd exercise after reviewing today and working through the specific components and set up. Pt was very limited in his hip ext through exercise, and showed significant rectus femoris tightness with mau test. The pt improved his ROM through manual work on his rectus femoris and TFL. Pt was given a hip flexor stretch and quad stretch to continue to improve ROM. Physical Therapy Plan Frequency and Duration Frequency of Treatment 1x/Week Duration of Treatment 2 months Plan of Care Start Date 02/11/18 Plan of Care End Date 04/13/18 Next Visit Focus/Plan Next Note Type Treatment Note Next Visit Plan cont to work on ROM, balance with lunges/marching, ER squatting/walking at bar ( potential resistance for strength)
--- NOTE | 2018-03-03 11:38 | PT.OTN ---
Current Diagnoses Unspecified abnormalities of gait and mobility (03/03/18) Repeated falls (03/03/18) Physical Therapy Treatment Note PT-OP-A Visit Information Start: 10/12/17 07:21 Freq: Status: Active Protocol: Document 03/03/18 08:23 ML (Rec: 03/03/18 09:57 ML [id number]) Out-Patient Physical Therapy Visit Information Visit Information Visit Type Treatment Note Visit Note 14 total visits Visit Start Time 08:30 Visit Stop Time 08:15 Total Visit Minutes 45 Visit Number 6/10 Number of ARTILLERY MAINTENANCE SUPERVISOR Visits 0 PT-OP-B Current Condition Start: 10/12/17 07:21 Freq: Status: Active Protocol: Document 10/12/17 08:15 [facility] (Rec: 10/12/17 17:44 [facility] [id number]) Current Condition History of Current Condition Current Complaints weakness & unsteadiness History of Current Condition Pt was seen by PT about 1 year ago for LBP w/radiculopathy that improved significantly with treatment. He still gets intermittent pain, and is extra careful as he is aware he has a disc bulge. Pt reports intermittently doing his HEP since his last d/c. Pt reports he tripped going down the stairs on a cruise 1 month ago. He thinks do to stepping on his shoe lace. He fell down about 7 steps and was assessed by cruise ship staff and then in [place]. Pt reports he hurt his shoulder & hit his head. he was groggy right after, but did not have a bleed. He saw a massage therapist for his shoulder and it is doing better. Reports occasionlly when stepping off a curb or going down stairs he feels a valgus force in his knee with a tweak laterally. Prior Treatments and Tests PT Treatment Goals Patient/Caregiver Goals Improve balance & strength, indep & compliance with HEP, work on lower back, get back into swimming PT-OP-C Subjective Start: 10/12/17 07:21 Freq: Status: Active Protocol: Document 03/03/18 08:23 ML (Rec: 03/03/18 09:57 ML [id number]) OP-PT Subjective Patient Comments Patient Comments Pt mentioned that he did the new stretch at home and it has been going well. PT-OP-D Balance Start: 10/12/17 07:21 Freq: Status: Active Protocol: Document 02/11/18 08:20 [facility] (Rec: 02/11/18 10:16 [facility] [id number]) Balance Tests Other Other Balance Tests Performed Functional balance assessment: PT-OP-G Mobility & Gait Start: 10/12/17 07:21 Freq: Status: Active Protocol: Document 10/12/17 08:15 [facility] (Rec: 10/12/17 09:03 [facility] [id number]) OP Gait Assessment Comments Gait Comments Overall dec push off. Stair Climbing Evaluation Comments Stair Climbing Comments Reciprocal w/ IR with decent R >L PT-OP-M Strength Start: 10/12/17 07:21 Freq: Status: Active Protocol: Document 02/11/18 08:20 [facility] (Rec: 02/11/18 10:14 [facility] [id number]) Hip Strength Hip Manual Muscle Testing Right Flexion (L2) 4 Good Extension (S1) 4 Good Abduction 4+ Good+ External Rotation 3- Fair- Internal Rotation 4+ Good+ Comments very limited in ER ROM Left Flexion (L2) 4 Good Extension (S1) 5 Normal Abduction 5 Normal External Rotation 5 Normal Internal Rotation 5 Normal Knee Strength Knee Manual Muscle Testing Right Flexion (S2) 5 Normal Extension (L3) 5 Normal Left Flexion (S2) 5 Normal Extension (L3) 5 Normal PT-OP-Q Treatments Start: 10/12/17 07:21 Freq: Status: Active Protocol: Document 03/03/18 08:23 ML (Rec: 03/03/18 09:57 ML [id number]) Cardio Equipment Recumbent Bicycle Duration (Minutes) 7 Resistance 10 Seat Position 12 Therapeutic Exercises Standing Exercises 7 Standing Exercise Name mini lunge and march Side bilateral Equipment Used bar Comments cues for going slowly and holding in both positions 6 Standing Exercise Name ER standing & walking Side bilateral Resistance red theraband Equipment Used bar Comments cues for trunk and pelvis neutral 4 Standing Exercise Name sidestep in mini squat Resistance red band Reps/Minutes B 20ft Comments no bar, cues for upright posture and not standing through the adduct step PT-OP-R Modalities Start: 10/12/17 07:21 Freq: Status: Active Protocol: Document 11/02/17 08:18 [facility] (Rec: 11/02/17 08:59 [facility] [id number]) Hot Pack/Cold Pack Treatment Cold Pack Location LS Patient Position Hooklying Treatment Duration (minutes) 10 PT-OP-T Assessment and Plan Start: 10/12/17 07:21 Freq: Status: Active Protocol: Document 03/03/18 08:23 ML (Rec: 03/03/18 09:57 ML [id number]) Physical Therapy Assessment Goals Five Impairment FGA Carbider Goal (LTG) score to 28/30 to show improvement in balance LTG Duration 04/10/18 Four Impairment FAAM Shelter Goal (LTG) Score 80 LTG Duration by 04/10/18-improving One Impairment MMT Short Term Goal (STG) Pt will be independent with HEP. STG Duration achieved Carbider Goal (LTG) Pt will score 5/5 MMT to allow improvement in his ability to do daily tasks & rec activities. LTG Duration 04/10/18-improving Assessment Summary Assessment Pt required lots of cueing to do exercises with appropriate/ desired motion. Pt was able to make corrections with manual and verbal cues, but struggled to do exercises without cueing. Pt was educated on how to perform exercises at home to continue his improvement. Physical Therapy Plan Frequency and Duration Frequency of Treatment 1x/Week Duration of Treatment 2 months Plan of Care Start Date 02/11/18 Plan of Care End Date 04/13/18 Next Visit Focus/Plan Next Note Type Treatment Note Next Visit Plan unilat squat on shuttle recovery; wt shifting and balance on shuttle balance; /july review; hurdles; recumbent bike; hip add machine (inc hip ER)
--- NOTE | 2018-03-10 13:19 | PT.OTN ---
Current Diagnoses Unspecified abnormalities of gait and mobility (03/10/18) Repeated falls (03/10/18) Physical Therapy Treatment Note PT-OP-A Visit Information Start: 10/12/17 07:21 Freq: Status: Active Protocol: Document 03/10/18 11:42 ML (Rec: 03/10/18 11:50 ML [email or web address]) Out-Patient Physical Therapy Visit Information Visit Information Visit Type Treatment Note Visit Note 16 total visits Visit Start Time 08:15 Visit Stop Time 09:10 Total Visit Minutes 55 Visit Number 11/16 Number of BRASS BOBBIN WINDER Visits 0 PT-OP-B Current Condition Start: 10/12/17 07:21 Freq: Status: Active Protocol: Document 10/12/17 08:15 [facility] (Rec: 10/12/17 17:44 [facility] [id number]) Current Condition History of Current Condition Current Complaints weakness & unsteadiness History of Current Condition Pt was seen by PT about 1 year ago for LBP w/radiculopathy that improved significantly with treatment. He still gets intermittent pain, and is extra careful as he is aware he has a disc bulge. Pt reports intermittently doing his HEP since his last d/c. Pt reports he tripped going down the stairs on a cruise 1 month ago. He thinks do to stepping on his shoe lace. He fell down about 7 steps and was assessed by cruise ship staff and then in [place]. Pt reports he hurt his shoulder & hit his head. he was groggy right after, but did not have a bleed. He saw a massage therapist for his shoulder and it is doing better. Reports occasionlly when stepping off a curb or going down stairs he feels a valgus force in his knee with a tweak laterally. Prior Treatments and Tests PT Treatment Goals Patient/Caregiver Goals Improve balance & strength, indep & compliance with HEP, work on lower back, get back into swimming PT-OP-C Subjective Start: 10/12/17 07:21 Freq: Status: Active Protocol: Document 03/10/18 11:42 ML (Rec: 03/10/18 11:50 ML [email or web address]) OP-PT Subjective Patient Comments Patient Comments Pt reported that he went on an aggressive walk yesterday and his R LB was sore last night. PT-OP-D Balance Start: 10/12/17 07:21 Freq: Status: Active Protocol: Document 02/11/18 08:20 [facility] (Rec: 02/11/18 10:16 [facility] [id number]) Balance Tests Other Other Balance Tests Performed Functional balance assessment: PT-OP-G Mobility & Gait Start: 10/12/17 07:21 Freq: Status: Active Protocol: Document 10/12/17 08:15 [facility] (Rec: 10/12/17 09:03 [facility] [id number]) OP Gait Assessment Comments Gait Comments Overall dec push off. Stair Climbing Evaluation Comments Stair Climbing Comments Reciprocal w/ IR with decent R >L PT-OP-M Strength Start: 10/12/17 07:21 Freq: Status: Active Protocol: Document 02/11/18 08:20 [facility] (Rec: 02/11/18 10:14 [facility] [id number]) Hip Strength Hip Manual Muscle Testing Right Flexion (L2) 4 Good Extension (S1) 4 Good Abduction 4+ Good+ External Rotation 3- Fair- Internal Rotation 4+ Good+ Comments very limited in ER ROM Left Flexion (L2) 4 Good Extension (S1) 5 Normal Abduction 5 Normal External Rotation 5 Normal Internal Rotation 5 Normal Knee Strength Knee Manual Muscle Testing Right Flexion (S2) 5 Normal Extension (L3) 5 Normal Left Flexion (S2) 5 Normal Extension (L3) 5 Normal PT-OP-Q Treatments Start: 10/12/17 07:21 Freq: Status: Active Protocol: Document 03/10/18 11:42 ML (Rec: 03/10/18 11:50 ML [email or web address]) Cardio Equipment Recumbent Bicycle Duration (Minutes) 8 Resistance 10 Seat Position 12 Gym Equipment Shuttle Recovery 1 Details unilateral squat Resistance 37 R, 62 L Reps/Time terminated on R due to lat knee pain on R, no pain on L Therapeutic Exercises Sidelying Exercises 4 Sidelying Exercise Name R ITB foam roller Comments HEP Manual Therapy Treatment Soft Tissue Mobilization 2 Body Location R QL/lumbar paraspinals Mobilization Type Myofascial Release Rolling Sustained Pressure Comments pt noted that it was right where he was feeling sore last night 1 Body Location ITB R Mobilization Type Myofascial Release Rolling Sustained Pressure Comments assisted with active DF/PF PT-OP-R Modalities Start: 10/12/17 07:21 Freq: Status: Active Protocol: Document 03/10/18 11:42 ML (Rec: 03/10/18 11:50 ML [email or web address]) Hot Pack/Cold Pack Treatment Cold Pack Location LS and R knee Patient Position Hooklying Treatment Duration (minutes) 10 PT-OP-T Assessment and Plan Start: 10/12/17 07:21 Freq: Status: Active Protocol: Document 03/10/18 11:42 ML (Rec: 03/10/18 11:50 ML [email or web address]) Physical Therapy Assessment Goals Five Impairment FGA Communication Equipment Repairer Goal (LTG) score to 28/30 to show improvement in balance LTG Duration 04/10/18 Four Impairment FAAM Communication Equipment Repairer Goal (LTG) Score 80 LTG Duration by 04/10/18-improving One Impairment MMT Short Term Goal (STG) Pt will be independent with HEP. STG Duration achieved Half-Way Goal (LTG) Pt will score 5/5 MMT to allow improvement in his ability to do daily tasks & rec activities. LTG Duration 04/10/18-improving Assessment Summary Assessment Pt was unable to do unilateral squat on R due to lat R knee pain even with very minimal resistance and a medial patellar glide. Pt presents with very tight ITB on R which was addressed with manual treatment. Pt was instructed on how to improve the ITB tightness at home with a foam roller. The pt's sore back was also addressed with manual treatment. Physical Therapy Plan Frequency and Duration Frequency of Treatment 1x/Week Duration of Treatment 2 months Plan of Care Start Date 02/11/18 Plan of Care End Date 04/13/18 Next Visit Focus/Plan Next Note Type Treatment Note Next Visit Plan R lumbar paraspinals and ITB tightness; wt shifting and balance on shuttle balance; lunge/july review; hurdles; recumbent bike; hip add machine (inc hip ER)
--- NOTE | 2018-03-17 11:11 | PT.OTN ---
Current Diagnoses Unspecified abnormalities of gait and mobility (03/17/18) Repeated falls (03/17/18) Physical Therapy Treatment Note PT-OP-A Visit Information Start: 10/12/17 07:21 Freq: Status: Active Protocol: Document 03/17/18 08:09 ML (Rec: 03/17/18 08:14 ML [email or web address]) Out-Patient Physical Therapy Visit Information Visit Information Visit Type Treatment Note Visit Note 16 total visits Visit Start Time 08:19 Visit Stop Time 09:12 Total Visit Minutes 53 Visit Number 8/10 Number of CLEANING MANAGER Visits 0 PT-OP-B Current Condition Start: 10/12/17 07:21 Freq: Status: Active Protocol: Document 10/12/17 08:15 [facility] (Rec: 10/12/17 17:44 LR [email or web address]) Current Condition History of Current Condition Current Complaints weakness & unsteadiness History of Current Condition Pt was seen by PT about 1 year ago for LBP w/radiculopathy that improved significantly with treatment. He still gets intermittent pain, and is extra careful as he is aware he has a disc bulge. Pt reports intermittently doing his HEP since his last d/c. Pt reports he tripped going down the stairs on a cruise 1 month ago. He thinks do to stepping on his shoe lace. He fell down about 7 steps and was assessed by cruise ship staff and then in [place]. Pt reports he hurt his shoulder & hit his head. he was groggy right after, but did not have a bleed. He saw a massage therapist for his shoulder and it is doing better. Reports occasionlly when stepping off a curb or going down stairs he feels a valgus force in his knee with a tweak laterally. Prior Treatments and Tests PT Treatment Goals Patient/Caregiver Goals Improve balance & strength, indep & compliance with HEP, work on lower back, get back into swimming PT-OP-C Subjective Start: 10/12/17 07:21 Freq: Status: Active Protocol: Document 03/17/18 08:09 ML (Rec: 03/17/18 10:06 ML [email or web address]) OP-PT Subjective Patient Comments Patient Comments Pt reports that his knee is still clicking and that his hip is still causing pain ( both on R). The pt also notes that his back muscles were a little inflammed when he went to bed after soft tissue work at the last treatment, but felt better the next day from the work that was done in therapy. PT-OP-D Balance Start: 10/12/17 07:21 Freq: Status: Active Protocol: Document 02/11/18 08:20 [facility] (Rec: 02/11/18 10:16 [facility] [id number]) Balance Tests Other Other Balance Tests Performed Functional balance assessment: PT-OP-G Mobility & Gait Start: 10/12/17 07:21 Freq: Status: Active Protocol: Document 10/12/17 08:15 [facility] (Rec: 10/12/17 09:03 [facility] [id number]) OP Gait Assessment Comments Gait Comments Overall dec push off. Stair Climbing Evaluation Comments Stair Climbing Comments Reciprocal w/ IR with decent R >L PT-OP-M Strength Start: 10/12/17 07:21 Freq: Status: Active Protocol: Document 02/11/18 08:20 [facility] (Rec: 02/11/18 10:14 [facility] [id number]) Hip Strength Hip Manual Muscle Testing Right Flexion (L2) 4 Good Extension (S1) 4 Good Abduction 4+ Good+ External Rotation 3- Fair- Internal Rotation 4+ Good+ Comments very limited in ER ROM Left Flexion (L2) 4 Good Extension (S1) 5 Normal Abduction 5 Normal External Rotation 5 Normal Internal Rotation 5 Normal Knee Strength Knee Manual Muscle Testing Right Flexion (S2) 5 Normal Extension (L3) 5 Normal Left Flexion (S2) 5 Normal Extension (L3) 5 Normal PT-OP-Q Treatments Start: 10/12/17 07:21 Freq: Status: Active Protocol: Document 03/17/18 08:09 ML (Rec: 03/17/18 08:14 ML [email or web address]) Cardio Equipment Recumbent Bicycle Duration (Minutes) 8 Resistance 10 Seat Position 12 Gym Equipment Cable Column (Body Solid) 2 Details hip abduction Resistance 3 Reps/Time terminated due to hip pain 1 Details hip adduction Resistance 5 Reps/Time 20 Shuttle Balance 1 Details red clips Comments wt shifting NBOS fwd and back Therapeutic Exercises Supine Exercises 2 Supine Exercise Name piriformis stretch Comments knee to contralat shoulder Manual Therapy Treatment Soft Tissue Mobilization 1 Body Location ITB R Mobilization Type Myofascial Release Rolling Sustained Pressure Comments assisted with active DF/PF Joint Mobilizations 3 Joint R inominate Direction for abd Body Position Sidelying Comments CR abd/add PT-OP-R Modalities Start: 10/12/17 07:21 Freq: Status: Active Protocol: Document 03/17/18 08:09 ML (Rec: 03/17/18 08:14 ML [email or web address]) Hot Pack/Cold Pack Treatment Cold Pack Location LS and R knee Patient Position Hooklying Treatment Duration (minutes) 10 PT-OP-T Assessment and Plan Start: 10/12/17 07:21 Freq: Status: Active Protocol: Document 03/17/18 08:09 ML (Rec: 03/17/18 08:14 ML [email or web address]) Physical Therapy Assessment Goals Five Impairment FGA Prison Goal (LTG) score to 28/30 to show improvement in balance LTG Duration 04/10/18 Four Impairment FAAM Home Office Claim Specialist Goal (LTG) Score 80 LTG Duration by 04/10/18-improving One Impairment MMT Short Term Goal (STG) Pt will be independent with HEP. STG Duration achieved Home Office Claim Specialist Goal (LTG) Pt will score 5/5 MMT to allow improvement in his ability to do daily tasks & rec activities. LTG Duration 04/10/18-improving Assessment Summary Assessment Pt reported to PT with continually noting of R hip pain and clicking on R knee. The knee clicking was addressed with manual treatment to ITB and the hip pain with inominate mobilization as well as piriformis stretch. The pt felt that he was able to achieve more motion after mobilization. The pt noted that he is able to do clamshells at home without resistance with no pain, but is limited in his abd motion and strength, especially with hip flexion. Pt's balance and strength were also addressed through gym equipment in treatment today in order to improve these impairments. Physical Therapy Plan Frequency and Duration Frequency of Treatment 1x/Week Duration of Treatment 2 months Plan of Care Start Date 02/11/18 Plan of Care End Date 04/13/18 Next Visit Focus/Plan Next Note Type Treatment Note Next Visit Plan address hip pain; inominate motion in abd/flex (movement engagement), sacrum motion, ITB; strengthen hip abd
--- NOTE | 2018-03-22 14:28 | PT.OTN ---
Current Diagnoses Unspecified abnormalities of gait and mobility (03/22/18) Repeated falls (03/22/18) Physical Therapy Treatment Note PT-OP-A Visit Information Start: 10/12/17 07:21 Freq: Status: Active Protocol: Document 03/22/18 08:09 ML (Rec: 03/22/18 09:02 ML [id number]) Out-Patient Physical Therapy Visit Information Visit Information Visit Type Treatment Note Visit Note 17 total visits Visit Start Time 08:15 Visit Stop Time 09:10 Total Visit Minutes 55 Visit Number 9/ Number of APPLIED COMPUTER SCIENCE PROFESSOR Visits 0 PT-OP-B Current Condition Start: 10/12/17 07:21 Freq: Status: Active Protocol: Document 10/12/17 08:15 [facility] (Rec: 10/12/17 17:44 LR [email or web address]) Current Condition History of Current Condition Current Complaints weakness & unsteadiness History of Current Condition Pt was seen by PT about 1 year ago for LBP w/radiculopathy that improved significantly with treatment. He still gets intermittent pain, and is extra careful as he is aware he has a disc bulge. Pt reports intermittently doing his HEP since his last d/c. Pt reports he tripped going down the stairs on a cruise 1 month ago. He thinks do to stepping on his shoe lace. He fell down about 7 steps and was assessed by cruise ship staff and then in [place]. Pt reports he hurt his shoulder & hit his head. he was groggy right after, but did not have a bleed. He saw a massage therapist for his shoulder and it is doing better. Reports occasionlly when stepping off a curb or going down stairs he feels a valgus force in his knee with a tweak laterally. Prior Treatments and Tests PT Treatment Goals Patient/Caregiver Goals Improve balance & strength, indep & compliance with HEP, work on lower back, get back into swimming PT-OP-C Subjective Start: 10/12/17 07:21 Freq: Status: Active Protocol: Document 03/22/18 08:09 ML (Rec: 03/22/18 09:02 ML [id number]) OP-PT Subjective Patient Comments Patient Comments Pt reports going on a few good walks since his last visit, and the pt reports his back and knee bothering him at the end that involves a big incline and stairs. PT-OP-D Balance Start: 10/12/17 07:21 Freq: Status: Active Protocol: Document 02/11/18 08:20 [facility] (Rec: 02/11/18 10:16 [facility] [id number]) Balance Tests Other Other Balance Tests Performed Functional balance assessment: PT-OP-G Mobility & Gait Start: 10/12/17 07:21 Freq: Status: Active Protocol: Document 10/12/17 08:15 [facility] (Rec: 10/12/17 09:03 [facility] [id number]) OP Gait Assessment Comments Gait Comments Overall dec push off. Stair Climbing Evaluation Comments Stair Climbing Comments Reciprocal w/ IR with decent R >L PT-OP-M Strength Start: 10/12/17 07:21 Freq: Status: Active Protocol: Document 02/11/18 08:20 [facility] (Rec: 02/11/18 10:14 [facility] [id number]) Hip Strength Hip Manual Muscle Testing Right Flexion (L2) 4 Good Extension (S1) 4 Good Abduction 4+ Good+ External Rotation 3- Fair- Internal Rotation 4+ Good+ Comments very limited in ER ROM Left Flexion (L2) 4 Good Extension (S1) 5 Normal Abduction 5 Normal External Rotation 5 Normal Internal Rotation 5 Normal Knee Strength Knee Manual Muscle Testing Right Flexion (S2) 5 Normal Extension (L3) 5 Normal Left Flexion (S2) 5 Normal Extension (L3) 5 Normal PT-OP-Q Treatments Start: 10/12/17 07:21 Freq: Status: Active Protocol: Document 03/22/18 08:09 ML (Rec: 03/22/18 09:02 ML [id number]) Cardio Equipment Recumbent Bicycle Duration (Minutes) 8 Resistance 10 Seat Position 12 Manual Therapy Treatment Joint Mobilizations 2 Joint R iliac crest Direction caudal Body Position Prone 1 Joint sacrum Direction PA Body Position Prone Comments R mid, L sup Neuro Re-Education Treatment Other Activities 1 Details ant elevation & post depression pelvis COI Comments isometric holds with reciprocal contraction; pelvis motion re-education for gait PT-OP-R Modalities Start: 10/12/17 07:21 Freq: Status: Active Protocol: Document 03/22/18 08:09 ML (Rec: 03/22/18 09:02 ML [id number]) Hot Pack/Cold Pack Treatment Cold Pack Location LS and R knee Patient Position Hooklying Treatment Duration (minutes) 10 PT-OP-T Assessment and Plan Start: 10/12/17 07:21 Freq: Status: Active Protocol: Document 03/22/18 08:09 ML (Rec: 03/22/18 09:02 ML [id number]) Physical Therapy Assessment Goals Five Impairment FGA Nursing Home Goal (LTG) score to 28/30 to show improvement in balance LTG Duration 04/10/18 Four Impairment FAAM Nursing Home Goal (LTG) Score 80 LTG Duration by 04/10/18-improving One Impairment MMT Short Term Goal (STG) Pt will be independent with HEP. STG Duration achieved Nitriles Lab Technician Goal (LTG) Pt will score 5/5 MMT to allow improvement in his ability to do daily tasks & rec activities. LTG Duration 04/10/18-improving Assessment Summary Assessment Pt reports that he still gets hip pain on R and is elevated on his R side. Pt's pain was addressed with mobilizations and neuro re-education of the pelvis. Pt was able to move through a hip flexion and abduction motion that usually causes pain without pain. When tested again against resistance, the pt had a little pain into the abduction motion. The pt still lacks abduction pelvis motion. Physical Therapy Plan Frequency and Duration Frequency of Treatment 1x/Week Duration of Treatment 2 months Plan of Care Start Date 02/11/18 Plan of Care End Date 04/13/18 Next Visit Focus/Plan Next Note Type Progress Note Next Visit Plan address hip pain; inominate motion in abd/flex (movement engagement), sacrum motion, ITB; strengthen hip abd
--- NOTE | 2018-04-21 08:16 | PT.OTN ---
Current Diagnoses Unspecified abnormalities of gait and mobility (04/21/18) Repeated falls (04/21/18) Physical Therapy Treatment Note PT-OP-A Visit Information Start: 10/12/17 07:21 Freq: Status: Active Protocol: Document 04/21/18 07:27 [facility] (Rec: 04/21/18 08:16 [facility] [id number]) Out-Patient Physical Therapy Visit Information Visit Information Visit Type Progress Note Visit Start Time 07:30 Visit Stop Time 08:15 Total Visit Minutes 45 Visit Number 05/19 PT-OP-B Current Condition Start: 10/12/17 07:21 Freq: Status: Active Protocol: Document 10/12/17 08:15 [facility] (Rec: 10/12/17 17:44 [facility] [id number]) Current Condition History of Current Condition Current Complaints weakness & unsteadiness History of Current Condition Pt was seen by PT about 1 year ago for LBP w/radiculopathy that improved significantly with treatment. He still gets intermittent pain, and is extra careful as he is aware he has a disc bulge. Pt reports intermittently doing his HEP since his last d/c. Pt reports he tripped going down the stairs on a cruise 1 month ago. He thinks do to stepping on his shoe lace. He fell down about 7 steps and was assessed by cruise ship staff and then in [place]. Pt reports he hurt his shoulder & hit his head. he was groggy right after, but did not have a bleed. He saw a massage therapist for his shoulder and it is doing better. Reports occasionlly when stepping off a curb or going down stairs he feels a valgus force in his knee with a tweak laterally. Prior Treatments and Tests PT Treatment Goals Patient/Caregiver Goals Improve balance & strength, indep & compliance with HEP, work on lower back, get back into swimming PT-OP-C Subjective Start: 10/12/17 07:21 Freq: Status: Active Protocol: Document 04/21/18 07:27 [facility] (Rec: 04/21/18 08:16 [facility] [id number]) OP-PT Subjective Patient Comments Patient Comments Pt reports no falls. Pt reports he just got back from a trip to [place] and his back is stiff from sitting on the plane. Strength is feeling better. Pt reports he occasionally has zingers in the R knee. Pt reports he feels discomfort in lat R hip with putting on socks. Reports he has been doing squats, rolling out and bridges. PT-OP-D Balance Start: 10/12/17 07:21 Freq: Status: Active Protocol: Document 04/21/18 07:27 [facility] (Rec: 04/21/18 08:16 [facility] [id number]) Balance Tests Other Other Balance Tests Performed FGA PT-OP-G Mobility & Gait Start: 10/12/17 07:21 Freq: Status: Active Protocol: Document 10/12/17 08:15 [facility] (Rec: 10/12/17 09:03 [facility] [id number]) OP Gait Assessment Comments Gait Comments Overall dec push off. Stair Climbing Evaluation Comments Stair Climbing Comments Reciprocal w/ IR with decent R >L PT-OP-M Strength Start: 10/12/17 07:21 Freq: Status: Active Protocol: Document 04/21/18 07:27 [facility] (Rec: 04/21/18 08:16 [facility] [id number]) Hip Strength Hip Manual Muscle Testing Right Flexion (L2) 4+ Good+ Extension (S1) 4 Good Abduction 4 Good External Rotation 4- Good- Internal Rotation 4 Good Left Flexion (L2) 5 Normal Extension (S1) 4 Good Abduction 4+ Good+ External Rotation 5 Normal Internal Rotation 5 Normal PT-OP-Q Treatments Start: 10/12/17 07:21 Freq: Status: Active Protocol: Document 04/21/18 07:27 [facility] (Rec: 04/21/18 08:16 [facility] [id number]) Cardio Equipment Recumbent Bicycle Duration (Minutes) 6 Resistance 10 Seat Position 12 Therapeutic Exercises Sidelying Exercises 4 Sidelying Exercise Name R ITB foam roller Comments HEP 3 Sidelying Exercise Name clamshells Reps/Minutes 10 Standing Exercises 7 Standing Exercise Name squats Reps/Minutes 10 Comments w/chair behind Manual Therapy Treatment Soft Tissue Mobilization 4 Body Location QL R Mobilization Type Rolling PT-OP-R Modalities Start: 10/12/17 07:21 Freq: Status: Active Protocol: Document 03/22/18 08:09 ML (Rec: 03/22/18 09:02 ML [id number]) Hot Pack/Cold Pack Treatment Cold Pack Location LS and R knee Patient Position Hooklying Treatment Duration (minutes) 10 PT-OP-T Assessment and Plan Start: 10/12/17 07:21 Freq: Status: Active Protocol: Document 04/21/18 07:27 [facility] (Rec: 04/21/18 08:16 [facility] [id number]) Physical Therapy Assessment Impairments Impairments Activity Tolerance Balance Functional Mobility Gait Pain Posture ROM Soft Tissue Mobility Strength Goals Five Impairment FGA Longterm Goal (LTG) score to 28/30 to show improvement in balance LTG Duration achieved Four Impairment FAAM Manager Wholesale Goal (LTG) Score 80 LTG Duration by 05/11/18-improving One Impairment MMT Short Term Goal (STG) Pt will be independent with HEP. STG Duration achieved Manager Wholesale Goal (LTG) Pt will score 5/5 MMT to allow improvement in his ability to do daily tasks & rec activities. LTG Duration 06/11/18-improving Assessment Summary Assessment Pt is improving with balance but has not made very significant changes in strength, likely d/t inconsistency of appointments d/t vacations. Pt would benefit from PT for cont progression of home program and strength to help dec pain Physical Therapy Plan Frequency and Duration Frequency of Treatment 1x/Week Duration of Treatment 2 months Plan of Care Start Date 04/21/18 Plan of Care End Date 06/22/18 Therapeutic Interventions Therapeutic Interventions Balance Training Gait Training Home Exercise Program Joint Mobilizations Manual Therapy Neuromuscular Re-education Patient/Caregiver Education Self-Care/Home Management Soft Tissue Mobilization Taping Therapeutic Activities Therapeutic Exercises Modalities Cold Pack/Ice Massage Electric Stimulation Hot Packs Ultrasound Next Visit Focus/Plan Next Note Type Treatment Note Next Visit Plan work on flexibility and strength program
--- NOTE | 2018-04-21 08:17 | PT.OPPOC ---
Current Diagnoses Unspecified abnormalities of gait and mobility (04/21/18) Repeated falls (04/21/18) Provider Visit Care Team Role Provider Type Nithin Roman MD Attending Provider Physician Primary Care Provider Specialty: Internal Medicine Address: [address] [place] [address], [phone] Email: Plan Of Care PT-OP-T Assessment and Plan Start: 10/12/17 07:21 Freq: Status: Active Protocol: Document 04/21/18 07:27 [facility] (Rec: 04/21/18 08:16 [facility] [id number]) Physical Therapy Assessment Impairments Impairments Activity Tolerance Balance Functional Mobility Gait Pain Posture ROM Soft Tissue Mobility Strength Goals Five Impairment FGA Informatics Coordinator Goal (LTG) score to 28/30 to show improvement in balance LTG Duration achieved Four Impairment FAAM Residential Goal (LTG) Score 80 LTG Duration by 05/11/18-improving One Impairment MMT Short Term Goal (STG) Pt will be independent with HEP. STG Duration achieved Residential Goal (LTG) Pt will score 5/5 MMT to allow improvement in his ability to do daily tasks & rec activities. LTG Duration 06/11/18-improving Assessment Summary Assessment Pt is improving with balance but has not made very significant changes in strength, likely d/t inconsistency of appointments d/t vacations. Pt would benefit from PT for cont progression of home program and strength to help dec pain Physical Therapy Plan Frequency and Duration Frequency of Treatment 1x/Week Duration of Treatment 2 months Plan of Care Start Date 04/21/18 Plan of Care End Date 06/22/18 Therapeutic Interventions Therapeutic Interventions Balance Training Gait Training Home Exercise Program Joint Mobilizations Manual Therapy Neuromuscular Re-education Patient/Caregiver Education Self-Care/Home Management Soft Tissue Mobilization Taping Therapeutic Activities Therapeutic Exercises Modalities Cold Pack/Ice Massage Electric Stimulation Hot Packs Ultrasound Next Visit Focus/Plan Next Note Type Treatment Note Next Visit Plan work on flexibility and strength program Plan of Care Dates Plan of Care Start Date 04/21/18 Plan of Care End Date 06/22/18 Please Sign and Return: I have reviewed this Plan of Care and certify that the skilled therapy services above are required to meet the patient?s needs. Physician Signature Date Printed Name and Credentials Clinical Instructor Signature Printed Name and Credentials
--- NOTE | 2018-04-28 08:13 | PT.OTN ---
Current Diagnoses Unspecified abnormalities of gait and mobility (04/28/18) Repeated falls (04/28/18) Physical Therapy Treatment Note PT-OP-A Visit Information Start: 10/12/17 07:21 Freq: Status: Active Protocol: Document 04/28/18 07:30 [facility] (Rec: 04/28/18 08:13 [facility] [id number]) Out-Patient Physical Therapy Visit Information Visit Information Visit Type Treatment Note Visit Note 19 total visits Visit Start Time 07:30 Visit Stop Time 08:20 Total Visit Minutes 50 Visit Number 06/19 PT-OP-B Current Condition Start: 10/12/17 07:21 Freq: Status: Active Protocol: Document 10/12/17 08:15 [facility] (Rec: 10/12/17 17:44 [facility] [id number]) Current Condition History of Current Condition Current Complaints weakness & unsteadiness History of Current Condition Pt was seen by PT about 1 year ago for LBP w/radiculopathy that improved significantly with treatment. He still gets intermittent pain, and is extra careful as he is aware he has a disc bulge. Pt reports intermittently doing his HEP since his last d/c. Pt reports he tripped going down the stairs on a cruise 1 month ago. He thinks do to stepping on his shoe lace. He fell down about 7 steps and was assessed by cruise ship staff and then in [place]. Pt reports he hurt his shoulder & hit his head. he was groggy right after, but did not have a bleed. He saw a massage therapist for his shoulder and it is doing better. Reports occasionlly when stepping off a curb or going down stairs he feels a valgus force in his knee with a tweak laterally. Prior Treatments and Tests PT Treatment Goals Patient/Caregiver Goals Improve balance & strength, indep & compliance with HEP, work on lower back, get back into swimming PT-OP-C Subjective Start: 10/12/17 07:21 Freq: Status: Active Protocol: Document 04/28/18 07:30 [facility] (Rec: 04/28/18 08:13 [facility] [id number]) OP-PT Subjective Patient Comments Patient Comments Pt reports he was sore after appointment. Reports his back has been sore still since trip . Pt reports getting up in the AM and getting to be erect can be difficult. PT-OP-D Balance Start: 10/12/17 07:21 Freq: Status: Active Protocol: Document 04/21/18 07:27 [facility] (Rec: 04/21/18 08:16 [facility] [id number]) Balance Tests Other Other Balance Tests Performed [facility] PT-OP-G Mobility & Gait Start: 10/12/17 07:21 Freq: Status: Active Protocol: Document 10/12/17 08:15 [facility] (Rec: 10/12/17 09:03 [facility] [id number]) OP Gait Assessment Comments Gait Comments Overall dec push off. Stair Climbing Evaluation Comments Stair Climbing Comments Reciprocal w/ IR with decent R >L PT-OP-M Strength Start: 10/12/17 07:21 Freq: Status: Active Protocol: Document 04/21/18 07:27 [facility] (Rec: 04/21/18 08:16 [facility] [id number]) Hip Strength Hip Manual Muscle Testing Right Flexion (L2) 4+ Good+ Extension (S1) 4 Good Abduction 4 Good External Rotation 4- Good- Internal Rotation 4 Good Left Flexion (L2) 5 Normal Extension (S1) 4 Good Abduction 4+ Good+ External Rotation 5 Normal Internal Rotation 5 Normal PT-OP-Q Treatments Start: 10/12/17 07:21 Freq: Status: Active Protocol: Document 04/28/18 07:30 [facility] (Rec: 04/28/18 08:13 [facility] [id number]) Cardio Equipment Recumbent Bicycle Duration (Minutes) 6 Resistance 10 Seat Position 12 Therapeutic Exercises Supine Exercises stretch Supine Exercise Name HS, piriformis & quad stretch Side bilateral Reps/Minutes 30 sec holds each 2 Supine Exercise Name DKTC Reps/Minutes 30 sec 1 Supine Exercise Name abdominal series flex Reps/Minutes 30 sec hold Sidelying Exercises 3 Sidelying Exercise Name clamshells Reps/Minutes 10 1 Sidelying Exercise Name roll & reach Side bilateral Reps/Minutes 10 Standing Exercises 7 Standing Exercise Name squats Reps/Minutes 15 Comments w/chair behind 6 Standing Exercise Name side steps Equipment Used L3 Reps/Minutes 2x20ft 5 Standing Exercise Name hip ext Side bilateral Equipment Used L3 Reps/Minutes 15 Manual Therapy Treatment Soft Tissue Mobilization 4 Body Location QL R Mobilization Type Rolling PT-OP-R Modalities Start: 10/12/17 07:21 Freq: Status: Active Protocol: Document 04/28/18 07:30 [facility] (Rec: 04/28/18 08:13 [facility] [id number]) Hot Pack/Cold Pack Treatment Cold Pack Location LS Patient Position Hooklying Treatment Duration (minutes) 10 PT-OP-T Assessment and Plan Start: 10/12/17 07:21 Freq: Status: Active Protocol: Document 04/28/18 07:30 [facility] (Rec: 04/28/18 08:13 [facility] [id number]) Physical Therapy Assessment Goals Four Impairment FAAM Tube Bender Hand Goal (LTG) Score 80 LTG Duration by 05/11/18-improving One Impairment MMT Short Term Goal (STG) Pt will be independent with HEP. STG Duration achieved Shelter Goal (LTG) Pt will score 5/5 MMT to allow improvement in his ability to do daily tasks & rec activities. LTG Duration 06/11/18-improving Assessment Summary Assessment Pt able to go through exercise program with cueing without pain. Cueing required for form and maintaining neutral spine . Physical Therapy Plan Frequency and Duration Frequency of Treatment 1x/Week Duration of Treatment 2 months Plan of Care Start Date 04/21/18 Plan of Care End Date 06/22/18 Next Visit Focus/Plan Next Note Type Treatment Note Next Visit Plan cont to progress home program and review exercises.
--- NOTE | 2018-05-06 13:42 | PT.OTN ---
Current Diagnoses Unspecified abnormalities of gait and mobility (05/06/18) Repeated falls (05/06/18) Physical Therapy Treatment Note PT-OP-A Visit Information Start: 10/12/17 07:21 Freq: Status: Active Protocol: Document 05/06/18 13:02 [facility] (Rec: 05/06/18 13:41 [facility] [id number]) Out-Patient Physical Therapy Visit Information Visit Information Visit Type Treatment Note Visit Note 20 total visits Visit Start Time 13:00 Visit Stop Time 13:50 Total Visit Minutes 50 Visit Number 07/17 PT-OP-B Current Condition Start: 10/12/17 07:21 Freq: Status: Active Protocol: Document 10/12/17 08:15 [facility] (Rec: 10/12/17 17:44 [facility] [id number]) Current Condition History of Current Condition Current Complaints weakness & unsteadiness History of Current Condition Pt was seen by PT about 1 year ago for LBP w/radiculopathy that improved significantly with treatment. He still gets intermittent pain, and is extra careful as he is aware he has a disc bulge. Pt reports intermittently doing his HEP since his last d/c. Pt reports he tripped going down the stairs on a cruise 1 month ago. He thinks do to stepping on his shoe lace. He fell down about 7 steps and was assessed by cruise ship staff and then in [place]. Pt reports he hurt his shoulder & hit his head. he was groggy right after, but did not have a bleed. He saw a massage therapist for his shoulder and it is doing better. Reports occasionlly when stepping off a curb or going down stairs he feels a valgus force in his knee with a tweak laterally. Prior Treatments and Tests PT Treatment Goals Patient/Caregiver Goals Improve balance & strength, indep & compliance with HEP, work on lower back, get back into swimming PT-OP-C Subjective Start: 10/12/17 07:21 Freq: Status: Active Protocol: Document 05/06/18 13:02 [facility] (Rec: 05/06/18 13:41 [facility] [id number]) OP-PT Subjective Patient Comments Patient Comments Pt reports he has been doing some in bed exercises before getting up and it helps. PT-OP-D Balance Start: 10/12/17 07:21 Freq: Status: Active Protocol: Document 04/21/18 07:27 [facility] (Rec: 04/21/18 08:16 [facility] [id number]) Balance Tests Other Other Balance Tests Performed [facility] PT-OP-G Mobility & Gait Start: 10/12/17 07:21 Freq: Status: Active Protocol: Document 10/12/17 08:15 [facility] (Rec: 10/12/17 09:03 [facility] [id number]) OP Gait Assessment Comments Gait Comments Overall dec push off. Stair Climbing Evaluation Comments Stair Climbing Comments Reciprocal w/ IR with decent R >L PT-OP-M Strength Start: 10/12/17 07:21 Freq: Status: Active Protocol: Document 04/21/18 07:27 [facility] (Rec: 04/21/18 08:16 [facility] [id number]) Hip Strength Hip Manual Muscle Testing Right Flexion (L2) 4+ Good+ Extension (S1) 4 Good Abduction 4 Good External Rotation 4- Good- Internal Rotation 4 Good Left Flexion (L2) 5 Normal Extension (S1) 4 Good Abduction 4+ Good+ External Rotation 5 Normal Internal Rotation 5 Normal PT-OP-Q Treatments Start: 10/12/17 07:21 Freq: Status: Active Protocol: Document 05/06/18 13:02 [facility] (Rec: 05/06/18 13:41 [facility] [id number]) Cardio Equipment Recumbent Bicycle Duration (Minutes) 6 Resistance 10 Seat Position 12 Therapeutic Exercises Supine Exercises stretch Supine Exercise Name HS, piriformis & quad stretch Side bilateral Reps/Minutes 30 sec holds each 2 Supine Exercise Name DKTC Reps/Minutes 30 sec 1 Supine Exercise Name abdominal series flex Reps/Minutes 30 sec hold Sidelying Exercises 3 Sidelying Exercise Name clamshells Reps/Minutes 10 1 Sidelying Exercise Name roll & reach Side bilateral Reps/Minutes 10 Standing Exercises 7 Standing Exercise Name squats Reps/Minutes 15x3 Comments w/chair behind &foam roll in front of knee 6 Standing Exercise Name side steps Equipment Used L3 Reps/Minutes 2x20ft 5 Standing Exercise Name hip ext Side bilateral Equipment Used L3 Reps/Minutes 15 Manual Therapy Treatment Soft Tissue Mobilization 4 Body Location QL R Mobilization Type Rolling PT-OP-R Modalities Start: 10/12/17 07:21 Freq: Status: Active Protocol: Document 05/06/18 13:02 [facility] (Rec: 05/06/18 13:42 [facility] [id number]) Hot Pack/Cold Pack Treatment Cold Pack Location LS Patient Position Hooklying Treatment Duration (minutes) 10 PT-OP-T Assessment and Plan Start: 10/12/17 07:21 Freq: Status: Active Protocol: Document 05/06/18 13:02 [facility] (Rec: 05/06/18 13:41 [facility] [id number]) Physical Therapy Assessment Goals Four Impairment FAAM Usp Goal (LTG) Score 80 LTG Duration by 05/11/18-improving One Impairment MMT Short Term Goal (STG) Pt will be independent with HEP. STG Duration achieved Management Retail Intern Goal (LTG) Pt will score 5/5 MMT to allow improvement in his ability to do daily tasks & rec activities. LTG Duration 06/11/18-improving Assessment Summary Assessment Pt required significant cueing with squats to prevent knees from going past his toes. He cont to have difficulty with with side stepping and avoiding lat lean to lift opposite extremity so cueing was required. Physical Therapy Plan Frequency and Duration Frequency of Treatment 1x/Week Duration of Treatment 2 months Plan of Care Start Date 04/21/18 Plan of Care End Date 06/22/18 Next Visit Focus/Plan Next Note Type Treatment Note Next Visit Plan review exercises & address pain prn
--- NOTE | 2018-05-12 09:47 | PT.OTN ---
Current Diagnoses Unspecified abnormalities of gait and mobility (05/12/18) Repeated falls (05/12/18) Physical Therapy Treatment Note PT-OP-A Visit Information Start: 10/12/17 07:21 Freq: Status: Active Protocol: Document 05/12/18 07:29 [facility] (Rec: 05/12/18 08:14 [facility] [id number]) Out-Patient Physical Therapy Visit Information Visit Information Visit Type Discharge Summary Visit Note 21 Visit Start Time 07:30 Visit Stop Time 08:10 Total Visit Minutes 40 Visit Number 05/19 PT-OP-B Current Condition Start: 10/12/17 07:21 Freq: Status: Active Protocol: Document 10/12/17 08:15 [facility] (Rec: 10/12/17 17:44 [facility] [id number]) Current Condition History of Current Condition Current Complaints weakness & unsteadiness History of Current Condition Pt was seen by PT about 1 year ago for LBP w/radiculopathy that improved significantly with treatment. He still gets intermittent pain, and is extra careful as he is aware he has a disc bulge. Pt reports intermittently doing his HEP since his last d/c. Pt reports he tripped going down the stairs on a cruise 1 month ago. He thinks do to stepping on his shoe lace. He fell down about 7 steps and was assessed by cruise ship staff and then in [place]. Pt reports he hurt his shoulder & hit his head. he was groggy right after, but did not have a bleed. He saw a massage therapist for his shoulder and it is doing better. Reports occasionlly when stepping off a curb or going down stairs he feels a valgus force in his knee with a tweak laterally. Prior Treatments and Tests PT Treatment Goals Patient/Caregiver Goals Improve balance & strength, indep & compliance with HEP, work on lower back, get back into swimming PT-OP-C Subjective Start: 10/12/17 07:21 Freq: Status: Active Protocol: Document 05/12/18 07:29 [facility] (Rec: 05/12/18 08:14 [facility] [id number]) OP-PT Subjective Patient Comments Patient Comments Reports compliance with HEP. Had some pain in back when walking. Patient Questionnaires Foot & Ankle Ability Measure- ADL and Sports FAAM-ADL Score 76 PT-OP-D Balance Start: 10/12/17 07:21 Freq: Status: Active Protocol: Document 04/21/18 07:27 [facility] (Rec: 04/21/18 08:16 [facility] [id number]) Balance Tests Other Other Balance Tests Performed [facility] PT-OP-G Mobility & Gait Start: 10/12/17 07:21 Freq: Status: Active Protocol: Document 10/12/17 08:15 [facility] (Rec: 10/12/17 09:03 [facility] [id number]) OP Gait Assessment Comments Gait Comments Overall dec push off. Stair Climbing Evaluation Comments Stair Climbing Comments Reciprocal w/ IR with decent R >L PT-OP-M Strength Start: 10/12/17 07:21 Freq: Status: Active Protocol: Document 05/12/18 07:29 [facility] (Rec: 05/12/18 08:14 [facility] [id number]) Hip Strength Hip Manual Muscle Testing Right Flexion (L2) 4+ Good+ Extension (S1) 4 Good Abduction 4 Good External Rotation 4 Good Internal Rotation 5 Normal Left Flexion (L2) 5 Normal Extension (S1) 4+ Good+ Abduction 4+ Good+ External Rotation 5 Normal Internal Rotation 5 Normal PT-OP-Q Treatments Start: 10/12/17 07:21 Freq: Status: Active Protocol: Document 05/12/18 07:29 [facility] (Rec: 05/12/18 08:14 [facility] [id number]) Therapeutic Exercises Supine Exercises stretch Supine Exercise Name HS, piriformis & quad stretch Side bilateral Reps/Minutes 30 sec holds each 2 Supine Exercise Name DKTC Reps/Minutes 30 sec 1 Supine Exercise Name abdominal series flex Reps/Minutes 30 sec hold Sidelying Exercises 3 Sidelying Exercise Name clamshells Reps/Minutes 10 Comments lvl 1 1 Sidelying Exercise Name roll & reach Side bilateral Reps/Minutes 10 Standing Exercises 7 Standing Exercise Name squats Reps/Minutes 15x3 Comments w/chair behind &foam roll in front of knee 6 Standing Exercise Name side steps Equipment Used L3 Reps/Minutes 2x20ft 5 Standing Exercise Name hip ext Side bilateral Equipment Used L3 Reps/Minutes 15 Manual Therapy Treatment Soft Tissue Mobilization 4 Body Location QL R Mobilization Type Rolling Joint Mobilizations 2 Joint R innominate Direction caudal Body Position Prone 1 Joint sacrum Direction PA & caudal Body Position Prone Comments R mid, L sup PT-OP-R Modalities Start: 10/12/17 07:21 Freq: Status: Active Protocol: Document 05/06/18 13:02 [facility] (Rec: 05/06/18 13:42 [facility] [id number]) Hot Pack/Cold Pack Treatment Cold Pack Location LS Patient Position Hooklying Treatment Duration (minutes) 10 PT-OP-T Assessment and Plan Start: 10/12/17 07:21 Freq: Status: Active Protocol: Document 05/12/18 07:29 [facility] (Rec: 05/12/18 08:14 [facility] [id number]) Physical Therapy Assessment Goals Four Impairment FAAM Lead Business Systems Analyst Goal (LTG) Score 80 LTG Duration by 05/11/18-improving One Impairment MMT Short Term Goal (STG) Pt will be independent with HEP. STG Duration achieved Lead Business Systems Analyst Goal (LTG) Pt will score 5/5 MMT to allow improvement in his ability to do daily tasks & rec activities. LTG Duration 06/11/18-improving Assessment Summary Assessment Pt has improved with his strenght, but still has defits on R>LLE. He is to cont with focused HEP to help. Pt to cont to work on amb to build strength & stability. Physical Therapy Plan Discharge Physical Therapy Discharge Reasons Goals Met Discharge Comments Most goals met. cont strength w/ hep
--- NOTE | 2018-05-12 09:47 | PT.OPDS ---
Current Diagnoses Unspecified abnormalities of gait and mobility (05/12/18) Repeated falls (05/12/18) Provider Visit Care Team Role Provider Type Nithin Roman MD Attending Provider Physician Primary Care Provider Specialty: Internal Medicine Address: [address] [place] [address], [facility] Email: Visit Number Visit Number 05/19 Discharge Summary PT-OP-B Current Condition Start: 10/12/17 07:21 Freq: Status: Active Protocol: Document 10/12/17 08:15 [facility] (Rec: 10/12/17 17:44 [facility] [id number]) Current Condition History of Current Condition Current Complaints weakness & unsteadiness History of Current Condition Pt was seen by PT about 1 year ago for LBP w/radiculopathy that improved significantly with treatment. He still gets intermittent pain, and is extra careful as he is aware he has a disc bulge. Pt reports intermittently doing his HEP since his last d/c. Pt reports he tripped going down the stairs on a cruise 1 month ago. He thinks do to stepping on his shoe lace. He fell down about 7 steps and was assessed by cruise ship staff and then in [place]. Pt reports he hurt his shoulder & hit his head. he was groggy right after, but did not have a bleed. He saw a massage therapist for his shoulder and it is doing better. Reports occasionlly when stepping off a curb or going down stairs he feels a valgus force in his knee with a tweak laterally. Prior Treatments and Tests PT Treatment Goals Patient/Caregiver Goals Improve balance & strength, indep & compliance with HEP, work on lower back, get back into swimming PT-OP-C Subjective Start: 10/12/17 07:21 Freq: Status: Active Protocol: Document 05/12/18 07:29 [facility] (Rec: 05/12/18 08:14 [facility] [id number]) OP-PT Subjective Patient Comments Patient Comments Reports compliance with HEP. Had some pain in back when walking. Patient Questionnaires Foot & Ankle Ability Measure- ADL and Sports FAAM-ADL Score 76 PT-OP-D Balance Start: 10/12/17 07:21 Freq: Status: Active Protocol: Document 04/21/18 07:27 [facility] (Rec: 04/21/18 08:16 [facility] [id number]) Balance Tests Other Other Balance Tests Performed [facility] PT-OP-G Mobility & Gait Start: 10/12/17 07:21 Freq: Status: Active Protocol: Document 10/12/17 08:15 [facility] (Rec: 10/12/17 09:03 [facility] [id number]) OP Gait Assessment Comments Gait Comments Overall dec push off. Stair Climbing Evaluation Comments Stair Climbing Comments Reciprocal w/ IR with decent R >L PT-OP-M Strength Start: 10/12/17 07:21 Freq: Status: Active Protocol: Document 05/12/18 07:29 [facility] (Rec: 05/12/18 08:14 [facility] [id number]) Hip Strength Hip Manual Muscle Testing Right Flexion (L2) 4+ Good+ Extension (S1) 4 Good Abduction 4 Good External Rotation 4 Good Internal Rotation 5 Normal Left Flexion (L2) 5 Normal Extension (S1) 4+ Good+ Abduction 4+ Good+ External Rotation 5 Normal Internal Rotation 5 Normal PT-OP-T Assessment and Plan Start: 10/12/17 07:21 Freq: Status: Active Protocol: Document 05/12/18 07:29 [facility] (Rec: 05/12/18 08:14 [facility] [id number]) Physical Therapy Assessment Goals Four Impairment FAAM Mcfp Goal (LTG) Score 80 LTG Duration by 05/11/18-improving One Impairment MMT Short Term Goal (STG) Pt will be independent with HEP. STG Duration achieved Core Composer Machine Tender Goal (LTG) Pt will score 5/5 MMT to allow improvement in his ability to do daily tasks & rec activities. LTG Duration 06/11/18-improving Assessment Summary Assessment Pt has improved with his strenght, but still has defits on R>LLE. He is to cont with focused HEP to help. Pt to cont to work on amb to build strength & stability. Physical Therapy Plan Discharge Physical Therapy Discharge Reasons Goals Met Discharge Comments Most goals met. cont strength w/ hep
== END 2018-05-12 10:30 ==
LOC: PHYS 07:30
PROVIDERS: PCP Internal Medicine; Visit Provider Internal Medicine
DX: R26.9 Unspecified abnormalities of gait and mobility (principal); R29.6 Repeated falls
CPT/HCPCS: 97110; 97112; 97140; 97162; 97535

== ENCOUNTER → 2019-03-21 12:36 | Outpatient (CLI) | payer OTHER, SELFPAY ==
--- NOTE | 2019-03-21 | DI.US.S_ITS ---
PROCEDURE: US PERIPH VENOUS LOW EXTREM RT INDICATIONS: RIGHT LEG PAIN AND SWELLING TECHNIQUE: Real-time imaging, as well as color and pulse Doppler interrogation, were performed of the lower extremity deep veins from the inguinal ligament to the popliteal fossa. COMPARISON: None. FINDINGS: The common femoral, femoral and popliteal veins are normally compressible, and free of intraluminal thrombus. Color and pulse Doppler demonstrate normal phasic intraluminal flow. There is normal augmentation response to distal compression maneuver. IMPRESSION: Negative for deep venous thrombosis. Dictated by: Diogo Noland M.D. on 03/21/2019 at 12:16 Approved by: Diogo Noland M.D. on 03/21/2019 at 12:17
== END ==
PROVIDERS: Family Provider Internal Medicine; PCP Internal Medicine; Visit Provider Physical Medicine & Rehabilitation Pain Medicine
DX: M79.604 Pain in right leg (principal); M79.89 Other specified soft tissue disorders
CPT/HCPCS: 93971

== ENCOUNTER 2019-05-16 07:31 | Day surgery (SDC) | payer OTHER, SELFPAY ==
[2019-05-16] MEDS: PROPARACAINE 0.5% OPHTH SOL 2 DROPS EYE-OP (08:15)
[2019-05-16] MEDS: CATARACT EYE COMPOUND (10 DROPS/SYRINGE) 3 DROPS EYE-OP (08:21)
[2019-05-16 08:22] VITALS: BMI 28.0
[2019-05-16 08:30] VITALS: BP 128/84; PULSE 68; RESP 20; TEMP 35.9; O2SAT 97
--- NOTE | 2019-05-16 08:33 | PM.PREOP ---
Pre-operative Note Interval Note History & Physical reviewed/Exam performed by Physician: No Changes to H&P: No
--- NOTE | 2019-05-16 08:33 | PM.OP.1 ---
Operative Date/Time/Diagnoses Pre-op diagnosis: Nuclear Cataract Left eye Post-op diagnosis: same Procedure & Clinicians Surgeon: David Hu Anesthesia Type: MAC +/- and Sedation Operative Notes Procedure in detail: Patient brought to the operating suite. Tetracaine drops placed in the left eye. Patient was prepped and draped in sterile manner. Wire lid speculum was placed in the eye. Betadine drops were placed on the eye. This was irrigated. Lidocaine jelly was placed on the eye. A paracentesis port was created with a side-port blade. 0.1 mL 1% preservative free lidocaine was injected into the anterior chamber. The anterior chamber was deepened with viscoelastic. 2.6 mm keratome was used to create a temporal clear corneal incision. Cystotome and Utrata forceps were used to create continuous tear capsulorrhexis. Balanced salt solution was used to hydro dissect the nucleus. The phacoemulsification handpiece was inserted and the nucleus was removed using the stop and chop technique. The irrigation aspiration handpiece was inserted and the remaining cortex was removed. Anterior chamber was deepened with viscoelastic. An Jaramillo ZCB00 intraocular lens with a power of 18.5 was injected into the capsular bag. Irrigation aspiration handpiece was inserted and the remaining viscoelastic was removed. Incision was hydrated with balanced salt solution and found to be leak free with pressure with Weck-Mandie sponges. 0.1 mL Vigamox injected anterior chamber. 0.3 mL Kenalog 10 mg was injected subconjunctivally. Lid speculum was removed. The patient left the operating room in excellent condition. Complications: none Post-operative Condition: stable Disposition: same day surgery
--- NOTE | 2019-05-16 08:47 | SUR.OPER ---
Supine on eye stretcher, head on extension cradle secured with tape. Arms tucked at sides with blanket. Pillow under knees.
[2019-05-16] MEDS: MOXIFLOXACIN INJ 5 MG/ML VIAL EYE-OP (08:49)
[2019-05-16] MEDS: PHENYLEPHRINE/LIDOCAINE VIAL (OR) 0.2 ML EYE-OP (08:49)
[2019-05-16] MEDS: TRIAMCINOLONE 50 MG/5 ML VIAL INJ (08:50)
[2019-05-16] MEDS: CHONDROIDTIN/SOD HYALURONATE 1.05 ML SYRINGE INTRAOCULA (08:50)
[2019-05-16] MEDS: BALANCED SALT IRRIG SOLN NO.2 500 ML, EPINEPHrine 1 MG IRR (08:51)
[2019-05-16] MEDS: LIDOCAINE JELLY 2% 5 ML 1 APPLIC TOP (08:51)
[2019-05-16] MEDS: TETRACAINE 0.5% OPHTH DROPS 4 ML 2 DROPS EYE-OP (08:51)
[2019-05-16 09:08] VITALS: BP 121/77; PULSE 68; RESP 16; TEMP 36.6; O2SAT 97
== END 2019-05-16 09:25 | disposition home or self-care (01) ==
PROVIDERS: Family Provider Internal Medicine; PCP Internal Medicine; Visit Provider Ophthalmology
PROC: (CPT 66984; principal; 2019-05-16 09:15)
DX: H25.12 Age-related nuclear cataract, left eye (principal); I48.91 Unspecified atrial fibrillation
CPT/HCPCS: 66984; J0171; J2250; J3010; J3301

== ENCOUNTER → 2019-12-26 07:56 | Outpatient (CLI) | payer OTHER, SELFPAY ==
[2019-12-26 08:45] LABS: Add Manual Diff / Slide Review NO; Basophils Absolute Auto 100 /uL (0-100); Basophils Percent Auto 2.1 % (0-2); Eosinophils Absolute Auto 100 /uL (0-450); Hematocrit 43.6 % (41-53); Hemoglobin 14.9 g/dL (13.5-17.5); Lymphocytes Absolute Auto 1500 /uL (1100-4500); Lymphocytes Percent Auto 24.5 % (25-40); Mean Corpuscular HGB Conc 34.1 % (30-36); Mean Corpuscular Hemoglobin 34.5 PG (26-34); Mean Corpuscular Volume 101.3 fL (80-100); Monocytes Absolute Auto 600 /uL (0-900); Monocytes Percent Auto 10.5 % (3-14); Neutrophils Absolute Auto 3700 /uL (1500-7000); Neutrophils Percent Auto 60.9 % (50-75); Platelet Count 233 X10^3/uL (150-400); Red Blood Cell Count 4.31 X10^6/uL (4.5-5.9)
[2019-12-26 09:03] LABS: Alanine Aminotransferase 23 IU/L (<50); Albumin 4.2 g/dL (3.5-5.0); Albumin Globulin Ratio 1.4 (1.0-2.8); Alkaline Phosphatase 86 U/L (38-126); Aspartate Aminotransferase 30 IU/L (17-59); BUN Creatinine Ratio 17.5 (6-22); Blood Urea Nitrogen 14 mg/dL (9-20); Carbon Dioxide 27 mmol/L (22-32); Chloride 103 mmol/L (98-107); Estimated Glomerular Filt Rate > 60.0 mL/min (>60); Glucose 109 mg/dL (80-110); HEMOLYSIS < 15 (0-50); Potassium 4.1 mmol/L (3.4-5.1); Sodium 137 mmol/L (137-145); Total Protein 7.2 g/dL (6.3-8.2)
[2019-12-26 09:34] LABS: TSH w/ Reflex to FT4 1.97 uIU/mL (0.47-4.68)
== END ==
PROVIDERS: Family Provider Internal Medicine; PCP Internal Medicine; Referring Provider Internal Medicine; Visit Provider Internal Medicine
DX: I48.20 Chronic atrial fibrillation, unspecified (principal); I10 Essential (primary) hypertension; R26.9 Unspecified abnormalities of gait and mobility
CPT/HCPCS: 36415; 80053; 83735; 84443; 85025

== ENCOUNTER 2020-04-30 07:30 | Outpatient (RCR) | payer OTHER, SELFPAY ==
--- NOTE | 2019-10-11 18:28 | PT.OIE ---
Current Diagnoses Spinal stenosis, lumbar region with neurogenic claudication (10/11/19) Difficulty in walking, not elsewhere classified (10/11/19) Abnormal posture (10/11/19) Weakness (10/11/19) Past Medical History (Last Reviewed 03/26/19 @ 20:06 by DAYSI Patel) Afib (Chronic) Cognitive decline (Chronic) Concussion (Acute) Dizziness (Acute) Fall (Acute) Fall (on) (from) other stairs and steps, sequela (Acute) Heart disease (Chronic) Low back pain (Chronic) Obstructive sleep apnea of adult (Chronic) Visit Care Team Role Provider Type To Vallejo MD Attending Provider Physician Family Provider Primary Care Provider Referring Provider Specialty: Internal Medicine Address: [address] [place] [address], [facility] Email: [email or web address] [facility] Initial Evaluation PT-OP-A Visit Information Start: 10/11/19 08:57 Freq: Status: Active Protocol: Document 10/11/19 08:58 [facility] (Rec: 10/11/19 10:36 [facility] [id number]) Out-Patient Physical Therapy Visit Information Visit Information Visit Type Initial Evaluation Visit Note 05/19 Visit Start Time 09:02 Visit Stop Time 09:45 Total Visit Minutes 43 Visit Number 1 Number of PROJECT MANAGER INTERIOR DESIGN Visits 0 PT-OP-B Current Condition Start: 10/11/19 08:57 Freq: Status: Active Protocol: Document 10/11/19 08:58 [facility] (Rec: 10/11/19 10:36 [facility] [id number]) Current Condition History of Current Condition Onset Date chronic Current Complaints L>R LBP and R hip History of Current Condition Pt reprots his pain in LB and hip is worse recently and R hip bothers him especially when bending over especially to R side. Pt has been using walking sticks when he is going on walks and using a cane for around the yard, but no AD in the house. Pt notes he gets a sudden weakness sometimes in L LB where it feels like it gives out. Pt reports waking up with serious cramps in R leg and pain in R knee. Pt reports he can massage that pain away. Pt reports he notices he is a little wobbly sometimes. notes his posture is not great and notes he cannot keep up well when walking his . Reports walking too long can cause LBP. notes he has more trouble getting up and down from a chair especially in a lower chair. Prior Treatments and Tests PT which helps Treatment Goals Patient/Caregiver Goals find out which exercises to be doing, inc strength and balance PT-OP-C Subjective Start: 10/11/19 08:57 Freq: Status: Active Protocol: Document 10/11/19 08:58 [facility] (Rec: 10/11/19 10:36 [facility] [id number]) Patient Questionnaires Oswestry Low Back Index Oswestry Score 9/50 Oswestry Impairment 1 to 19% Impaired (Score 1-19) OP-PT Pain Assessment Location LB Pain Location Details L LB & L hip Intensity 5 Scale Used Numeric (1 - 10) Description Spasm Description- Other gives outs Frequency Daily Pain Aggravating Factors Walking,Lifting Other Pain Aggravating Factors starting moving after being sedentary, sometimes unsure Pain Alleviating Factors Cold Other Pain Alleviating Factors adjust position Right Hip Pain Location Details lat hip Intensity 8 Scale Used Numeric (1 - 10) Description Aching,With Movement Frequency Occasional Pain Duration stops when he stops activity Radiating Location ant thigh Variations/Patterns occasionally groin with walking-has not felt in a while Other Pain Aggravating Factors bending fwd to put on shoes and socks Pain Alleviating Factors Massage PT-OP-E Functional Tests Start: 10/11/19 08:57 Freq: Status: Active Protocol: Document 10/11/19 08:58 [facility] (Rec: 10/11/19 10:36 [facility] [id number]) Functional Tests Dynamic Gait Index (DGI) Score 22 Five Times Sit to Stand Test Score 22 PT-OP-G Mobility & Gait Start: 10/11/19 08:57 Freq: Status: Active Protocol: Document 10/11/19 08:58 [facility] (Rec: 10/11/19 10:36 [facility] [id number]) OP Gait Assessment Comments Gait Comments Pt has inc fwd flex at trunk, lat leaning and primarily leg walker PT-OP-J Posture/Palpation/Skin Start: 10/11/19 08:57 Freq: Status: Active Protocol: Document 10/11/19 08:58 [facility] (Rec: 10/11/19 10:36 [facility] [id number]) Posture Evaluation [facility] Postural Classification System Lumbar Protective Mechanism Left AP 1 Lumbar Protective Mechanism Right AP 0 Lumbar Protective Mechanism Left PA 1 Lumbar Protective Mechanism Right PA 1 Comments Posture Comments fwd flex at hips, inc kyphosis PT-OP-L Special Tests Start: 10/11/19 08:57 Freq: Status: Active Protocol: Document 10/11/19 08:58 [facility] (Rec: 10/11/19 10:36 [facility] [id number]) Special Tests Lumbar Spine Special Tests Slump Test Results neg B Straight Leg Raise Test Results neg B HS tightness to about 40 deg hip flex PT-OP-M Strength Start: 10/11/19 08:57 Freq: Status: Active Protocol: Document 10/11/19 08:58 [facility] (Rec: 10/11/19 10:36 [facility] [id number]) Hip Strength Hip Manual Muscle Testing Left Flexion (L2) 4 Good Extension (S1) 3+ Fair+ Abduction 4- Good- External Rotation 4- Good- Internal Rotation 4 Good Right Flexion (L2) 4- Good- Extension (S1) 3+ Fair+ Abduction 3+ Fair+ External Rotation 3- Fair- Internal Rotation 3+ Fair+ Knee Strength Knee Manual Muscle Testing Right Flexion (S2) 4 Good Extension (L3) 4 Good Left Flexion (S2) 4 Good Extension (L3) 4+ Good+ Ankle/Foot Strength Ankle and Foot Manual Muscle Testing Right Dorsiflexion (L4) 5 Normal Plantarflexion (S1) 5 Normal Left Dorsiflexion (L4) 5 Normal Plantarflexion (S1) 5 Normal Comments PF tested seated PT-OP-T Assessment and Plan Start: 10/11/19 08:57 Freq: Status: Active Protocol: Document 10/11/19 08:58 [facility] (Rec: 10/11/19 10:36 [facility] [id number]) Physical Therapy Assessment Rehab Potential Rehabilitation Potential Good Evaluation Complexity Number of Personal Factors/Comorbidities 3 or More Number of Body Systems Impaired 4 or More Clinical Presentation at Evaluation Evolving Impairments Impairments Activity Tolerance,Balance, Functional Activities, Functional Mobility,Gait,Pain, Posture,ROM,Soft Tissue Mobility,Strength,Transfers Goals Four Impairment ability to get up/down from chair 5x sit<>stand=22 sec Short Term Goal (STG) Pt will be able to do 5x sit to machine stemmer 18 sec to show improved ability to get up/ down from chair. STG Duration 11/10/19 Snf Goal (LTG) Pt will be able to do 5x sit to machine stemmer 13 sec to show improved ability to get up/ down from chair. LTG Duration 12/11/19 Three Impairment FGA Snf Goal (LTG) Pt will score >25/30 on FGA to show low risk for falls. LTG Duration 12/11/19 Two Snf Goal (LTG) Pt will be able to bend over to put on shoes without inc pain. LTG Duration 12/11/19 One Impairment strength Short Term Goal (STG) Pt will be indep with HEP. STG Duration 11/10/19 Casing Mixer Goal (LTG) Pt will have 4+/5 LE strength B and 3/5 LPM in order to show improves stability in order to inc confidence with doing typical activities. LTG Duration 12/11/19 Assessment Summary Assessment Pt presents with LBP and R hip pain with some reported issues with balance. He has attended PT before with good results and is liekly to progress well with skilled PT again. He has dec strength, pain with end range ROM, dec balance, and impaired posture that likely contributes towards his pain. Physical Therapy Plan Frequency and Duration Frequency of Treatment 1-2x/week Duration of Treatment 2 months Plan of Care Start Date 10/11/19 Plan of Care End Date 12/11/19 Therapeutic Interventions Therapeutic Interventions Aquatic Therapy,Balance Training,Gait Training,Home Exercise Program,Joint Mobilizations,Manual Therapy, Neuromuscular Re-education, Patient/Caregiver Education, Self-Care/Home Management,Soft Tissue Mobilization,Taping, Therapeutic Activities, Therapeutic Exercises Modalities Cold Pack/Ice Massage,Electric Stimulation,Hot Packs, Ultrasound Next Visit Focus/Plan Next Note Type Treatment Note Next Visit Plan set up HEP, start work on balance exercise, STM to LB
--- NOTE | 2019-10-11 18:28 | PT.OPPOC ---
Physical, Occupational & Speech Therapy At [facility] Current Diagnoses Spinal stenosis, lumbar region with neurogenic claudication (10/11/19) Difficulty in walking, not elsewhere classified (10/11/19) Abnormal posture (10/11/19) Weakness (10/11/19) Visit Care Team Role Provider Type To Vallejo MD Attending Provider Physician Family Provider Primary Care Provider Referring Provider Specialty: Internal Medicine Address: [address] [place] [address], [id number] Email: [email or web address] Plan Of Care PT-OP-T Assessment and Plan Start: 10/11/19 08:57 Freq: Status: Active Protocol: Document 10/11/19 08:58 [facility] (Rec: 10/11/19 10:36 [facility] [id number]) Physical Therapy Assessment Rehab Potential Rehabilitation Potential Good Evaluation Complexity Number of Personal Factors/Comorbidities 3 or More Number of Body Systems Impaired 4 or More Clinical Presentation at Evaluation Evolving Impairments Impairments Activity Tolerance,Balance, Functional Activities, Functional Mobility,Gait,Pain, Posture,ROM,Soft Tissue Mobility,Strength,Transfers Goals Four Impairment ability to get up/down from chair 5x sit<>stand=22 sec Short Term Goal (STG) Pt will be able to do 5x sit to high school learning support teacher 18 sec to show improved ability to get up/ down from chair. STG Duration 11/10/19 Beveller Operator Goal (LTG) Pt will be able to do 5x sit to high school learning support teacher 13 sec to show improved ability to get up/ down from chair. LTG Duration 12/11/19 Three Impairment FGA Prison Goal (LTG) Pt will score >25/30 on FGA to show low risk for falls. LTG Duration 12/11/19 Two Beveller Operator Goal (LTG) Pt will be able to bend over to put on shoes without inc pain. LTG Duration 12/11/19 One Impairment strength Short Term Goal (STG) Pt will be indep with HEP. STG Duration 11/10/19 Prison Goal (LTG) Pt will have 4+/5 LE strength B and 3/5 LPM in order to show improves stability in order to inc confidence with doing typical activities. LTG Duration 12/11/19 Assessment Summary Assessment Pt presents with LBP and R hip pain with some reported issues with balance. He has attended PT before with good results and is liekly to progress well with skilled PT again. He has dec strength, pain with end range ROM, dec balance, and impaired posture that likely contributes towards his pain. Physical Therapy Plan Frequency and Duration Frequency of Treatment 1-2x/week Duration of Treatment 2 months Plan of Care Start Date 10/11/19 Plan of Care End Date 12/11/19 Therapeutic Interventions Therapeutic Interventions Aquatic Therapy,Balance Training,Gait Training,Home Exercise Program,Joint Mobilizations,Manual Therapy, Neuromuscular Re-education, Patient/Caregiver Education, Self-Care/Home Management,Soft Tissue Mobilization,Taping, Therapeutic Activities, Therapeutic Exercises Modalities Cold Pack/Ice Massage,Electric Stimulation,Hot Packs, Ultrasound Next Visit Focus/Plan Next Note Type Treatment Note Next Visit Plan set up HEP, start work on balance exercise, STM to LB Plan of Care Dates Plan of Care Start Date 10/11/19 Plan of Care End Date 12/11/19 Electronically Signed by: Reina Rider, PT 10/11/19 1993 Please Sign and Return: I have reviewed this Plan of Care and certify that the skilled therapy services above are required to meet the patient?s needs. Physician Signature Date Printed Name and Credentials Clinical Instructor Signature Printed Name and Credentials
--- NOTE | 2019-10-18 18:29 | PT.OTN ---
Current Diagnoses Spinal stenosis, lumbar region with neurogenic claudication (10/18/19) Difficulty in walking, not elsewhere classified (10/18/19) Abnormal posture (10/18/19) Weakness (10/18/19) Physical Therapy Treatment Note PT-OP-A Visit Information Start: 10/11/19 08:57 Freq: Status: Active Protocol: Document 10/18/19 16:50 [facility] (Rec: 10/18/19 18:29 [facility] [id number]) Out-Patient Physical Therapy Visit Information Visit Information Visit Type Treatment Note Visit Note 06/19 Visit Start Time 16:50 Visit Stop Time 17:30 Total Visit Minutes 40 Visit Number 2 Number of POWER DISTRIBUTION ENGINEER Visits 0 PT-OP-B Current Condition Start: 10/11/19 08:57 Freq: Status: Active Protocol: Document 10/11/19 08:58 [facility] (Rec: 10/11/19 10:36 [facility] [id number]) Current Condition History of Current Condition Onset Date chronic Current Complaints L>R LBP and R hip History of Current Condition Pt reprots his pain in LB and hip is worse recently and R hip bothers him especially when bending over especially to R side. Pt has been using walking sticks when he is going on walks and using a cane for around the yard, but no AD in the house. Pt notes he gets a sudden weakness sometimes in L LB where it feels like it gives out. Pt reports waking up with serious cramps in R leg and pain in R knee. Pt reports he can massage that pain away. Pt reports he notices he is a little wobbly sometimes. notes his posture is not great and notes he cannot keep up well when walking his . Reports walking too long can cause LBP. notes he has more trouble getting up and down from a chair especially in a lower chair. Prior Treatments and Tests PT which helps Treatment Goals Patient/Caregiver Goals find out which exercises to be doing, inc strength and balance PT-OP-C Subjective Start: 10/11/19 08:57 Freq: Status: Active Protocol: Document 10/18/19 16:50 [facility] (Rec: 10/18/19 18:29 [facility] [id number]) OP-PT Subjective Patient Comments Patient Comments Pt reports side leg lifts are hard. PT-OP-E Functional Tests Start: 06/03/20 08:57 Freq: Status: Active Protocol: Document 10/11/19 08:58 [facility] (Rec: 10/11/19 10:36 [facility] [id number]) Functional Tests Dynamic Gait Index (DGI) Score 22 Five Times Sit to Stand Test Score 22 PT-OP-G Mobility & Gait Start: 10/11/19 08:57 Freq: Status: Active Protocol: Document 10/11/19 08:58 [facility] (Rec: 10/11/19 10:36 [facility] [id number]) OP Gait Assessment Comments Gait Comments Pt has inc fwd flex at trunk, lat leaning and primarily leg walker PT-OP-J Posture/Palpation/Skin Start: 10/11/19 08:57 Freq: Status: Active Protocol: Document 10/11/19 08:58 [facility] (Rec: 10/11/19 10:36 [facility] [id number]) Posture Evaluation [facility] Postural Classification System Lumbar Protective Mechanism Left AP 1 Lumbar Protective Mechanism Right AP 0 Lumbar Protective Mechanism Left PA 1 Lumbar Protective Mechanism Right PA 1 Comments Posture Comments fwd flex at hips, inc kyphosis PT-OP-L Special Tests Start: 10/11/19 08:57 Freq: Status: Active Protocol: Document 10/11/19 08:58 [facility] (Rec: 10/11/19 10:36 [facility] [id number]) Special Tests Lumbar Spine Special Tests Slump Test Results neg B Straight Leg Raise Test Results neg B HS tightness to about 40 deg hip flex PT-OP-M Strength Start: 10/11/19 08:57 Freq: Status: Active Protocol: Document 10/11/19 08:58 [facility] (Rec: 10/11/19 10:36 [facility] [id number]) Hip Strength Hip Manual Muscle Testing Left Flexion (L2) 4 Good Extension (S1) 3+ Fair+ Abduction 4- Good- External Rotation 4- Good- Internal Rotation 4 Good Right Flexion (L2) 4- Good- Extension (S1) 3+ Fair+ Abduction 3+ Fair+ External Rotation 3- Fair- Internal Rotation 3+ Fair+ Knee Strength Knee Manual Muscle Testing Right Flexion (S2) 4 Good Extension (L3) 4 Good Left Flexion (S2) 4 Good Extension (L3) 4+ Good+ Ankle/Foot Strength Ankle and Foot Manual Muscle Testing Right Dorsiflexion (L4) 5 Normal Plantarflexion (S1) 5 Normal Left Dorsiflexion (L4) 5 Normal Plantarflexion (S1) 5 Normal Comments PF tested seated PT-OP-Q Treatments Start: 10/11/19 08:57 Freq: Status: Active Protocol: Document 10/18/19 16:50 [facility] (Rec: 10/18/19 18:29 [facility] [id number]) Cardio Equipment Recumbent Bicycle Duration (Minutes) 5 Resistance 7-9 Seat Position 12 Gym Equipment Shuttle Balance 1 Details red clips Comments fwd: WBOS, NBOS & staggered stance B side: WBOS & NBOS Therapeutic Exercises Supine Exercises 2 Supine Exercise Name bridge Side bilateral Reps/Minutes 15 Comments 2 sec hold at top, arms across chest Sidelying Exercises 4 Sidelying Exercise Name hip abd Side bilateral Reps/Minutes 10 3 Sidelying Exercise Name clamshell Side bilateral Reps/Minutes 10 Standing Exercises 7 Standing Exercise Name sit<>stand Reps/Minutes 2x5 6 Standing Exercise Name hip ext Side bilateral Reps/Minutes 2x10 Manual Therapy Treatment Soft Tissue Mobilization 4 Body Location QL & glute R Mobilization Type Rolling,Sustained Pressure Body Position Sidelying Comments w/ER PT-OP-T Assessment and Plan Start: 10/11/19 08:57 Freq: Status: Active Protocol: Document 10/18/19 16:50 [facility] (Rec: 10/18/19 18:29 [facility] [id number]) Physical Therapy Assessment Goals Four Impairment ability to get up/down from chair 5x sit<>stand=22 sec Short Term Goal (STG) Pt will be able to do 5x sit to human resources benefits coordinator 18 sec to show improved ability to get up/ down from chair. STG Duration 11/10/19 Ecommerce Merchandising Manager Goal (LTG) Pt will be able to do 5x sit to human resources benefits coordinator 13 sec to show improved ability to get up/ down from chair. LTG Duration 12/11/19 Three Impairment FGA Usp Goal (LTG) Pt will score >25/30 on FGA to show low risk for falls. LTG Duration 12/11/19 Two Ecommerce Merchandising Manager Goal (LTG) Pt will be able to bend over to put on shoes without inc pain. LTG Duration 12/11/19 One Impairment strength Short Term Goal (STG) Pt will be indep with HEP. STG Duration 11/10/19 Usp Goal (LTG) Pt will have 4+/5 LE strength B and 3/5 LPM in order to show improves stability in order to inc confidence with doing typical activities. LTG Duration 12/11/19 Assessment Summary Assessment Pt required cueing with s/l exercises to engage core to prevent from rolling. Did well with challenge on balance board. He has signficiant tightness in R QL & glute that impr;oves with STM. Physical Therapy Plan Frequency and Duration Frequency of Treatment 1-2x/week Duration of Treatment 2 months Plan of Care Start Date 10/11/19 Plan of Care End Date 12/11/19 Next Visit Focus/Plan Next Note Type Treatment Note Next Visit Plan review HEP, side steps, hip mobs
--- NOTE | 2019-10-23 17:55 | PT.OTN ---
Current Diagnoses Spinal stenosis, lumbar region with neurogenic claudication (10/23/19) Difficulty in walking, not elsewhere classified (10/23/19) Abnormal posture (10/23/19) Weakness (10/23/19) Physical Therapy Treatment Note PT-OP-A Visit Information Start: 10/11/19 08:57 Freq: Status: Active Protocol: Document 10/23/19 15:21 [facility] (Rec: 10/23/19 16:05 [facility] [id number]) Out-Patient Physical Therapy Visit Information Visit Information Visit Type Treatment Note Visit Note 07/17 Visit Start Time 15:19 Visit Stop Time 16:00 Total Visit Minutes 41 Visit Number 3 Number of SENSOR SPECIALIST Visits 0 PT-OP-B Current Condition Start: 10/11/19 08:57 Freq: Status: Active Protocol: Document 10/11/19 08:58 [facility] (Rec: 10/11/19 10:36 [facility] [id number]) Current Condition History of Current Condition Onset Date chronic Current Complaints L>R LBP and R hip History of Current Condition Pt reprots his pain in LB and hip is worse recently and R hip bothers him especially when bending over especially to R side. Pt has been using walking sticks when he is going on walks and using a cane for around the yard, but no AD in the house. Pt notes he gets a sudden weakness sometimes in L LB where it feels like it gives out. Pt reports waking up with serious cramps in R leg and pain in R knee. Pt reports he can massage that pain away. Pt reports he notices he is a little wobbly sometimes. notes his posture is not great and notes he cannot keep up well when walking his . Reports walking too long can cause LBP. notes he has more trouble getting up and down from a chair especially in a lower chair. Prior Treatments and Tests PT which helps Treatment Goals Patient/Caregiver Goals find out which exercises to be doing, inc strength and balance PT-OP-C Subjective Start: 10/11/19 08:57 Freq: Status: Active Protocol: Document 10/23/19 15:21 [facility] (Rec: 10/23/19 16:05 [facility] [id number]) OP-PT Subjective Patient Comments Patient Comments Pt reports he did his walk and felt strong the day after last session but after his walk he has pain in his R back and it was spasming. COmpliant with HEP PT-OP-E Functional Tests Start: 10/11/19 08:57 Freq: Status: Active Protocol: Document 10/11/19 08:58 [facility] (Rec: 10/11/19 10:36 [facility] [id number]) Functional Tests Dynamic Gait Index (DGI) Score 22 Five Times Sit to Stand Test Score 22 PT-OP-G Mobility & Gait Start: 10/11/19 08:57 Freq: Status: Active Protocol: Document 10/11/19 08:58 [facility] (Rec: 10/11/19 10:36 [facility] [id number]) OP Gait Assessment Comments Gait Comments Pt has inc fwd flex at trunk, lat leaning and primarily leg walker PT-OP-J Posture/Palpation/Skin Start: 10/11/19 08:57 Freq: Status: Active Protocol: Document 10/11/19 08:58 [facility] (Rec: 10/11/19 10:36 [facility] [id number]) Posture Evaluation [facility] Postural Classification System Lumbar Protective Mechanism Left AP 1 Lumbar Protective Mechanism Right AP 0 Lumbar Protective Mechanism Left PA 1 Lumbar Protective Mechanism Right PA 1 Comments Posture Comments fwd flex at hips, inc kyphosis PT-OP-L Special Tests Start: 10/11/19 08:57 Freq: Status: Active Protocol: Document 10/11/19 08:58 [facility] (Rec: 10/11/19 10:36 [facility] [id number]) Special Tests Lumbar Spine Special Tests Slump Test Results neg B Straight Leg Raise Test Results neg B HS tightness to about 40 deg hip flex PT-OP-M Strength Start: 10/11/19 08:57 Freq: Status: Active Protocol: Document 10/11/19 08:58 [facility] (Rec: 10/11/19 10:36 [facility] [id number]) Hip Strength Hip Manual Muscle Testing Left Flexion (L2) 4 Good Extension (S1) 3+ Fair+ Abduction 4- Good- External Rotation 4- Good- Internal Rotation 4 Good Right Flexion (L2) 4- Good- Extension (S1) 3+ Fair+ Abduction 3+ Fair+ External Rotation 3- Fair- Internal Rotation 3+ Fair+ Knee Strength Knee Manual Muscle Testing Right Flexion (S2) 4 Good Extension (L3) 4 Good Left Flexion (S2) 4 Good Extension (L3) 4+ Good+ Ankle/Foot Strength Ankle and Foot Manual Muscle Testing Right Dorsiflexion (L4) 5 Normal Plantarflexion (S1) 5 Normal Left Dorsiflexion (L4) 5 Normal Plantarflexion (S1) 5 Normal Comments PF tested seated PT-OP-Q Treatments Start: 10/11/19 08:57 Freq: Status: Active Protocol: Document 10/23/19 15:21 [facility] (Rec: 10/23/19 16:05 [facility] [id number]) Cardio Equipment Recumbent Bicycle Duration (Minutes) 5 Resistance 10 Seat Position 12 Gym Equipment Shuttle Balance 1 Details red clips Comments fwd: WBOS, NBOS & staggered stance B side: WBOS & NBOS Therapeutic Exercises Standing Exercises 7 Standing Exercise Name sit<>stand Reps/Minutes 2x5 6 Standing Exercise Name hip ext Side bilateral Equipment Used L1 Reps/Minutes 10 5 Standing Exercise Name hip abd Side bilateral Reps/Minutes 2x10 4 Standing Exercise Name sidesteps Side bilateral Equipment Used L1 Reps/Minutes 20 ea Manual Therapy Treatment Soft Tissue Mobilization 4 Body Location QL & ant iliac crest Mobilization Type Rolling,Sustained Pressure Body Position Sidelying Comments w/ER Joint Mobilizations 3 Joint R innominate Direction ER FM Neuro Re-Education Treatment Balance Activities 5 Details fwd & back walking EC Reps/Duration 2x20ft PT-OP-T Assessment and Plan Start: 10/11/19 08:57 Freq: Status: Active Protocol: Document 10/23/19 15:21 [facility] (Rec: 10/23/19 16:05 [facility] [id number]) Physical Therapy Assessment Goals Four Impairment ability to get up/down from chair 5x sit<>stand=22 sec Short Term Goal (STG) Pt will be able to do 5x sit to managing consultant clinical professor 18 sec to show improved ability to get up/ down from chair. STG Duration 11/10/19 Rn Admission Goal (LTG) Pt will be able to do 5x sit to managing consultant clinical professor 13 sec to show improved ability to get up/ down from chair. LTG Duration 12/11/19 Three Impairment FGA [facility] Goal (LTG) Pt will score >25/30 on FGA to show low risk for falls. LTG Duration 12/11/19 Two Rn Admission Goal (LTG) Pt will be able to bend over to put on shoes without inc pain. LTG Duration 12/11/19 One Impairment strength Short Term Goal (STG) Pt will be indep with HEP. STG Duration 11/10/19 Rn Admission Goal (LTG) Pt will have 4+/5 LE strength B and 3/5 LPM in order to show improves stability in order to inc confidence with doing typical activities. LTG Duration 12/11/19 Assessment Summary Assessment Pt had improved pelvic ant elevation after manual treatment. No pain with standing abd exercises so changed pt HEP to standing HEP . He improved with stability on red clips today as compared to last session. He stumbled once coming into clinic where he caught his foot on the ground d/t dec clearance during swing phase. Physical Therapy Plan Frequency and Duration Frequency of Treatment 1-2x/week Duration of Treatment 2 months Plan of Care Start Date 10/11/19 Plan of Care End Date 12/11/19 Next Visit Focus/Plan Next Note Type Treatment Note Next Visit Plan work on R hip mobility & high level dynamic balance
--- NOTE | 2019-10-26 08:56 | PT.OTN ---
Current Diagnoses Spinal stenosis, lumbar region with neurogenic claudication (10/26/19) Difficulty in walking, not elsewhere classified (10/26/19) Abnormal posture (10/26/19) Weakness (10/26/19) Physical Therapy Treatment Note PT-OP-A Visit Information Start: 10/11/19 08:57 Freq: Status: Active Protocol: Document 10/26/19 07:36 [facility] (Rec: 10/26/19 08:56 [facility] [id number]) Out-Patient Physical Therapy Visit Information Visit Information Visit Type Treatment Note Visit Note 07/17 Visit Start Time 07:34 Visit Stop Time 08:25 Total Visit Minutes 51 Visit Number 4 Number of CHEMICAL PROCESSING TECHNICIAN Visits 0 PT-OP-B Current Condition Start: 10/11/19 08:57 Freq: Status: Active Protocol: Document 10/11/19 08:58 [facility] (Rec: 10/11/19 10:36 [facility] [id number]) Current Condition History of Current Condition Onset Date chronic Current Complaints L>R LBP and R hip History of Current Condition Pt reprots his pain in LB and hip is worse recently and R hip bothers him especially when bending over especially to R side. Pt has been using walking sticks when he is going on walks and using a cane for around the yard, but no AD in the house. Pt notes he gets a sudden weakness sometimes in L LB where it feels like it gives out. Pt reports waking up with serious cramps in R leg and pain in R knee. Pt reports he can massage that pain away. Pt reports he notices he is a little wobbly sometimes. notes his posture is not great and notes he cannot keep up well when walking his . Reports walking too long can cause LBP. notes he has more trouble getting up and down from a chair especially in a lower chair. Prior Treatments and Tests PT which helps Treatment Goals Patient/Caregiver Goals find out which exercises to be doing, inc strength and balance PT-OP-C Subjective Start: 10/11/19 08:57 Freq: Status: Active Protocol: Document 10/26/19 07:36 [facility] (Rec: 10/26/19 08:56 [facility] [id number]) OP-PT Subjective Patient Comments Patient Comments Pt reports he tried s/l abd at home and it was still painful so stopped. DOing standing exercises. PT-OP-E Functional Tests Start: 10/11/19 08:57 Freq: Status: Active Protocol: Document 10/11/19 08:58 [facility] (Rec: 10/11/19 10:36 [facility] [id number]) Functional Tests Dynamic Gait Index (DGI) Score 22 Five Times Sit to Stand Test Score 22 PT-OP-G Mobility & Gait Start: 10/11/19 08:57 Freq: Status: Active Protocol: Document 10/11/19 08:58 [facility] (Rec: 10/11/19 10:36 [facility] [id number]) OP Gait Assessment Comments Gait Comments Pt has inc fwd flex at trunk, lat leaning and primarily leg walker PT-OP-J Posture/Palpation/Skin Start: 10/11/19 08:57 Freq: Status: Active Protocol: Document 10/11/19 08:58 [facility] (Rec: 10/11/19 10:36 [facility] [id number]) Posture Evaluation [facility] Postural Classification System Lumbar Protective Mechanism Left AP 1 Lumbar Protective Mechanism Right AP 0 Lumbar Protective Mechanism Left PA 1 Lumbar Protective Mechanism Right PA 1 Comments Posture Comments fwd flex at hips, inc kyphosis PT-OP-L Special Tests Start: 10/11/19 08:57 Freq: Status: Active Protocol: Document 10/11/19 08:58 [facility] (Rec: 10/11/19 10:36 [facility] [id number]) Special Tests Lumbar Spine Special Tests Slump Test Results neg B Straight Leg Raise Test Results neg B HS tightness to about 40 deg hip flex PT-OP-M Strength Start: 10/11/19 08:57 Freq: Status: Active Protocol: Document 10/11/19 08:58 [facility] (Rec: 10/11/19 10:36 [facility] [id number]) Hip Strength Hip Manual Muscle Testing Left Flexion (L2) 4 Good Extension (S1) 3+ Fair+ Abduction 4- Good- External Rotation 4- Good- Internal Rotation 4 Good Right Flexion (L2) 4- Good- Extension (S1) 3+ Fair+ Abduction 3+ Fair+ External Rotation 3- Fair- Internal Rotation 3+ Fair+ Knee Strength Knee Manual Muscle Testing Right Flexion (S2) 4 Good Extension (L3) 4 Good Left Flexion (S2) 4 Good Extension (L3) 4+ Good+ Ankle/Foot Strength Ankle and Foot Manual Muscle Testing Right Dorsiflexion (L4) 5 Normal Plantarflexion (S1) 5 Normal Left Dorsiflexion (L4) 5 Normal Plantarflexion (S1) 5 Normal Comments PF tested seated PT-OP-Q Treatments Start: 10/11/19 08:57 Freq: Status: Active Protocol: Document 10/26/19 07:36 [facility] (Rec: 10/26/19 08:56 [facility] [id number]) Therapeutic Exercises Standing Exercises 7 Standing Exercise Name sit<>stand Reps/Minutes 5 Comments w/o hands 6 Standing Exercise Name hip ext Side bilateral Equipment Used L1 Reps/Minutes 10 5 Standing Exercise Name hip abd Side bilateral Reps/Minutes 2x10 Manual Therapy Treatment Soft Tissue Mobilization 4 Body Location QL &glutes R Mobilization Type Rolling,Sustained Pressure Body Position Sidelying Comments w/ER Joint Mobilizations 2 Joint sacrum Direction caudal & UPA R FM Neuro Re-Education Treatment Balance Activities 5 Details fwd & back walking EC Reps/Duration 2x20ft 4 Details head turns w/walking fwd/back Reps/Duration 2x20ft ea 2 Details tandem walk Reps/Duration 2x20ft PT-OP-R Modalities Start: 10/11/19 08:57 Freq: Status: Active Protocol: Document 10/26/19 07:36 [facility] (Rec: 10/26/19 08:56 [facility] [id number]) Hot Pack/Cold Pack Treatment Cold Pack Location LS Patient Position Hooklying PT-OP-T Assessment and Plan Start: 10/11/19 08:57 Freq: Status: Active Protocol: Document 10/26/19 07:36 [facility] (Rec: 10/26/19 08:56 [facility] [id number]) Physical Therapy Assessment Goals Four Impairment ability to get up/down from chair 5x sit<>stand=22 sec Short Term Goal (STG) Pt will be able to do 5x sit to channel lip stiffener insoles 18 sec to show improved ability to get up/ down from chair. STG Duration 11/10/19 Building Construction Supervisor Goal (LTG) Pt will be able to do 5x sit to channel lip stiffener insoles 13 sec to show improved ability to get up/ down from chair. LTG Duration 12/11/19 Three Impairment FGA Building Construction Supervisor Goal (LTG) Pt will score >25/30 on FGA to show low risk for falls. LTG Duration 12/11/19 Two Building Construction Supervisor Goal (LTG) Pt will be able to bend over to put on shoes without inc pain. LTG Duration 12/11/19 One Impairment strength Short Term Goal (STG) Pt will be indep with HEP. STG Duration 11/10/19 [facility] Goal (LTG) Pt will have 4+/5 LE strength B and 3/5 LPM in order to show improves stability in order to inc confidence with doing typical activities. LTG Duration 12/11/19 Assessment Summary Assessment Pt reminded to do standing abd and ext exercises versus doing s/l abd. Cueing required for standing exercises for upright posture and no lat leaning. Physical Therapy Plan Frequency and Duration Frequency of Treatment 1-2x/week Duration of Treatment 2 months Plan of Care Start Date 10/11/19 Plan of Care End Date 12/11/19 Next Visit Focus/Plan Next Note Type Treatment Note Next Visit Plan work on R hip mobility & high level dynamic balance
--- NOTE | 2019-10-30 09:48 | PT.OTN ---
Current Diagnoses Spinal stenosis, lumbar region with neurogenic claudication (10/30/19) Difficulty in walking, not elsewhere classified (10/30/19) Abnormal posture (10/30/19) Weakness (10/30/19) Physical Therapy Treatment Note PT-OP-A Visit Information Start: 10/11/19 08:57 Freq: Status: Active Protocol: Document 10/30/19 09:14 [facility] (Rec: 10/30/19 09:46 [facility] [id number]) Out-Patient Physical Therapy Visit Information Visit Information Visit Type Treatment Note Visit Note 07/17 Visit Start Time 09:03 Visit Stop Time 09:53 Total Visit Minutes 50 Visit Number 5 Number of EDGE DRUMMER Visits 0 PT-OP-B Current Condition Start: 10/11/19 08:57 Freq: Status: Active Protocol: Document 10/11/19 08:58 [facility] (Rec: 10/11/19 10:36 [facility] [id number]) Current Condition History of Current Condition Onset Date chronic Current Complaints L>R LBP and R hip History of Current Condition Pt reprots his pain in LB and hip is worse recently and R hip bothers him especially when bending over especially to R side. Pt has been using walking sticks when he is going on walks and using a cane for around the yard, but no AD in the house. Pt notes he gets a sudden weakness sometimes in L LB where it feels like it gives out. Pt reports waking up with serious cramps in R leg and pain in R knee. Pt reports he can massage that pain away. Pt reports he notices he is a little wobbly sometimes. notes his posture is not great and notes he cannot keep up well when walking his . Reports walking too long can cause LBP. notes he has more trouble getting up and down from a chair especially in a lower chair. Prior Treatments and Tests PT which helps Treatment Goals Patient/Caregiver Goals find out which exercises to be doing, inc strength and balance PT-OP-C Subjective Start: 10/11/19 08:57 Freq: Status: Active Protocol: Document 10/30/19 09:14 [facility] (Rec: 10/30/19 09:46 [facility] [id number]) OP-PT Subjective Patient Comments Patient Comments Pt reports pain is on and off. Reports he had a sharp tweak when adjusting in bed and getting blankets over himself. Pain is sharpt hen goes away. Brings walking sticks to be adjusted PT-OP-E Functional Tests Start: 10/11/19 08:57 Freq: Status: Active Protocol: Document 10/11/19 08:58 [facility] (Rec: 10/11/19 10:36 [facility] [id number]) Functional Tests Dynamic Gait Index (DGI) Score 22 Five Times Sit to Stand Test Score 22 PT-OP-G Mobility & Gait Start: 10/11/19 08:57 Freq: Status: Active Protocol: Document 10/11/19 08:58 [facility] (Rec: 10/11/19 10:36 [facility] [id number]) OP Gait Assessment Comments Gait Comments Pt has inc fwd flex at trunk, lat leaning and primarily leg walker PT-OP-J Posture/Palpation/Skin Start: 10/11/19 08:57 Freq: Status: Active Protocol: Document 10/11/19 08:58 [facility] (Rec: 10/11/19 10:36 [facility] [id number]) Posture Evaluation [facility] Postural Classification System Lumbar Protective Mechanism Left AP 1 Lumbar Protective Mechanism Right AP 0 Lumbar Protective Mechanism Left PA 1 Lumbar Protective Mechanism Right PA 1 Comments Posture Comments fwd flex at hips, inc kyphosis PT-OP-L Special Tests Start: 10/11/19 08:57 Freq: Status: Active Protocol: Document 10/11/19 08:58 [facility] (Rec: 10/11/19 10:36 [facility] [id number]) Special Tests Lumbar Spine Special Tests Slump Test Results neg B Straight Leg Raise Test Results neg B HS tightness to about 40 deg hip flex PT-OP-M Strength Start: 10/11/19 08:57 Freq: Status: Active Protocol: Document 10/11/19 08:58 [facility] (Rec: 10/11/19 10:36 [facility] [id number]) Hip Strength Hip Manual Muscle Testing Left Flexion (L2) 4 Good Extension (S1) 3+ Fair+ Abduction 4- Good- External Rotation 4- Good- Internal Rotation 4 Good Right Flexion (L2) 4- Good- Extension (S1) 3+ Fair+ Abduction 3+ Fair+ External Rotation 3- Fair- Internal Rotation 3+ Fair+ Knee Strength Knee Manual Muscle Testing Right Flexion (S2) 4 Good Extension (L3) 4 Good Left Flexion (S2) 4 Good Extension (L3) 4+ Good+ Ankle/Foot Strength Ankle and Foot Manual Muscle Testing Right Dorsiflexion (L4) 5 Normal Plantarflexion (S1) 5 Normal Left Dorsiflexion (L4) 5 Normal Plantarflexion (S1) 5 Normal Comments PF tested seated PT-OP-Q Treatments Start: 10/11/19 08:57 Freq: Status: Active Protocol: Document 10/30/19 09:14 [facility] (Rec: 10/30/19 09:46 [facility] [id number]) Cardio Equipment Recumbent Bicycle Duration (Minutes) 5 Resistance 10 Seat Position 12 Therapeutic Exercises Supine Exercises Tabd Supine Exercise Name heel slides Side bilateral Reps/Minutes 20 Comments w/Tabd 2 Supine Exercise Name hip flex isometric for core faciliation Side bilateral Reps/Minutes 15 sec x2 Comments single leg 1 Supine Exercise Name march w/tabd Side bilateral Reps/Minutes 20 Standing Exercises 6 Standing Exercise Name hip ext Side bilateral Equipment Used L1 Reps/Minutes 10 5 Standing Exercise Name hip abd Side bilateral Reps/Minutes 15 4 Standing Exercise Name sidesteps Side bilateral Equipment Used L1 Reps/Minutes 20 ea Gait Training Gait Activity walking sticks Comments 1. adjsuted to appropirate height 2. edu how to adjust and how to set up 3. work on sequecne and use of arm strap for support Manual Therapy Treatment Soft Tissue Mobilization 4 Body Location QL &glutes R Mobilization Type Rolling,Sustained Pressure Body Position Sidelying Comments w/ER PT-OP-R Modalities Start: 10/11/19 08:57 Freq: Status: Active Protocol: Document 10/30/19 09:14 [facility] (Rec: 10/30/19 09:46 [facility] [id number]) Hot Pack/Cold Pack Treatment Cold Pack Location LS Patient Position Hooklying PT-OP-T Assessment and Plan Start: 10/11/19 08:57 Freq: Status: Active Protocol: Document 10/30/19 09:14 [facility] (Rec: 10/30/19 09:46 [facility] [id number]) Physical Therapy Assessment Goals Four Impairment ability to get up/down from chair 5x sit<>stand=22 sec Short Term Goal (STG) Pt will be able to do 5x sit to sporting goods sales manager 18 sec to show improved ability to get up/ down from chair. STG Duration 11/10/19 Care Home Goal (LTG) Pt will be able to do 5x sit to sporting goods sales manager 13 sec to show improved ability to get up/ down from chair. LTG Duration 12/11/19 Three Impairment FGA Care Home Goal (LTG) Pt will score >25/30 on FGA to show low risk for falls. LTG Duration 12/11/19 Two Painter Aircraft Goal (LTG) Pt will be able to bend over to put on shoes without inc pain. LTG Duration 12/11/19 One Impairment strength Short Term Goal (STG) Pt will be indep with HEP. STG Duration 11/10/19 Care Home Goal (LTG) Pt will have 4+/5 LE strength B and 3/5 LPM in order to show improves stability in order to inc confidence with doing typical activities. LTG Duration 12/11/19 Assessment Summary Assessment Pt was challenged by core exercises and did not have any pain with those exercises. He is improving with soft tissue mobility in back and hip. Physical Therapy Plan Frequency and Duration Frequency of Treatment 1-2x/week Duration of Treatment 2 months Plan of Care Start Date 10/11/19 Plan of Care End Date 12/11/19 Next Visit Focus/Plan Next Note Type Treatment Note Next Visit Plan work on R hip mobility & high level dynamic balance
--- NOTE | 2019-11-01 09:51 | PT.OTN ---
Current Diagnoses Spinal stenosis, lumbar region with neurogenic claudication (11/01/19) Difficulty in walking, not elsewhere classified (11/01/19) Abnormal posture (11/01/19) Weakness (11/01/19) Physical Therapy Treatment Note PT-OP-A Visit Information Start: 10/11/19 08:57 Freq: Status: Active Protocol: Document 11/01/19 08:27 [facility] (Rec: 11/01/19 09:51 [facility] [id number]) Out-Patient Physical Therapy Visit Information Visit Information Visit Type Treatment Note Visit Note 08/17 Visit Start Time 08:19 Visit Stop Time 09:08 Total Visit Minutes 49 Visit Number 6 Number of FLAT SORTER PROCESSOR Visits 0 PT-OP-B Current Condition Start: 10/11/19 08:57 Freq: Status: Active Protocol: Document 10/11/19 08:58 [facility] (Rec: 10/11/19 10:36 [facility] [id number]) Current Condition History of Current Condition Onset Date chronic Current Complaints L>R LBP and R hip History of Current Condition Pt reprots his pain in LB and hip is worse recently and R hip bothers him especially when bending over especially to R side. Pt has been using walking sticks when he is going on walks and using a cane for around the yard, but no AD in the house. Pt notes he gets a sudden weakness sometimes in L LB where it feels like it gives out. Pt reports waking up with serious cramps in R leg and pain in R knee. Pt reports he can massage that pain away. Pt reports he notices he is a little wobbly sometimes. notes his posture is not great and notes he cannot keep up well when walking his . Reports walking too long can cause LBP. notes he has more trouble getting up and down from a chair especially in a lower chair. Prior Treatments and Tests PT which helps Treatment Goals Patient/Caregiver Goals find out which exercises to be doing, inc strength and balance PT-OP-C Subjective Start: 10/11/19 08:57 Freq: Status: Active Protocol: Document 11/01/19 08:27 [facility] (Rec: 11/01/19 09:51 [facility] [id number]) OP-PT Subjective Patient Comments Patient Comments Pt reports still constant back pain. PT-OP-E Functional Tests Start: 10/11/19 08:57 Freq: Status: Active Protocol: Document 10/11/19 08:58 [facility] (Rec: 10/11/19 10:36 [facility] [id number]) Functional Tests Dynamic Gait Index (DGI) Score 22 Five Times Sit to Stand Test Score 22 PT-OP-G Mobility & Gait Start: 10/11/19 08:57 Freq: Status: Active Protocol: Document 10/11/19 08:58 [facility] (Rec: 10/11/19 10:36 [facility] [id number]) OP Gait Assessment Comments Gait Comments Pt has inc fwd flex at trunk, lat leaning and primarily leg walker PT-OP-J Posture/Palpation/Skin Start: 10/11/19 08:57 Freq: Status: Active Protocol: Document 10/11/19 08:58 [facility] (Rec: 10/11/19 10:36 [facility] [id number]) Posture Evaluation [facility] Postural Classification System Lumbar Protective Mechanism Left AP 1 Lumbar Protective Mechanism Right AP 0 Lumbar Protective Mechanism Left PA 1 Lumbar Protective Mechanism Right PA 1 Comments Posture Comments fwd flex at hips, inc kyphosis PT-OP-L Special Tests Start: 10/11/19 08:57 Freq: Status: Active Protocol: Document 10/11/19 08:58 [facility] (Rec: 10/11/19 10:36 [facility] [id number]) Special Tests Lumbar Spine Special Tests Slump Test Results neg B Straight Leg Raise Test Results neg B HS tightness to about 40 deg hip flex PT-OP-M Strength Start: 10/11/19 08:57 Freq: Status: Active Protocol: Document 10/11/19 08:58 [facility] (Rec: 10/11/19 10:36 [facility] [id number]) Hip Strength Hip Manual Muscle Testing Left Flexion (L2) 4 Good Extension (S1) 3+ Fair+ Abduction 4- Good- External Rotation 4- Good- Internal Rotation 4 Good Right Flexion (L2) 4- Good- Extension (S1) 3+ Fair+ Abduction 3+ Fair+ External Rotation 3- Fair- Internal Rotation 3+ Fair+ Knee Strength Knee Manual Muscle Testing Right Flexion (S2) 4 Good Extension (L3) 4 Good Left Flexion (S2) 4 Good Extension (L3) 4+ Good+ Ankle/Foot Strength Ankle and Foot Manual Muscle Testing Right Dorsiflexion (L4) 5 Normal Plantarflexion (S1) 5 Normal Left Dorsiflexion (L4) 5 Normal Plantarflexion (S1) 5 Normal Comments PF tested seated PT-OP-Q Treatments Start: 10/11/19 08:57 Freq: Status: Active Protocol: Document 11/01/19 08:27 [facility] (Rec: 11/01/19 09:51 [facility] [id number]) Cardio Equipment Recumbent Bicycle Duration (Minutes) 5 Resistance 10 Seat Position 12 Gym Equipment Shuttle Balance 1 Details red clips Comments fwd: WBOS balance w/head turns & wt shifts, NBOS, Staggered stance B side: WBOS & NBOS Therapeutic Exercises Supine Exercises Tabd Supine Exercise Name heel slides Side bilateral Reps/Minutes !) Comments w/Tabd 2 Supine Exercise Name hip flex isometric for core faciliation Side bilateral Reps/Minutes 15 sec x2 Comments single leg 1 Supine Exercise Name march w/tabd Side bilateral Reps/Minutes !) Manual Therapy Treatment Soft Tissue Mobilization 4 Body Location QL &glutes R Mobilization Type Rolling,Sustained Pressure Body Position Sidelying Comments w/ER Neuro Re-Education Treatment Balance Activities 5 Details fwd walking EC Reps/Duration 2x50ft 4 Details head turns w/walking fwd/back Reps/Duration 2x50ft ea Comments vertical and horiztonal 2 Details backwards walk fast Reps/Duration 2x50ft 3 Details fwd marching Reps/Duration 2x50ft PT-OP-R Modalities Start: 10/11/19 08:57 Freq: Status: Active Protocol: Document 11/01/19 08:27 [facility] (Rec: 11/01/19 09:51 [facility] [id number]) Hot Pack/Cold Pack Treatment Cold Pack Location LS Patient Position Hooklying PT-OP-T Assessment and Plan Start: 10/11/19 08:57 Freq: Status: Active Protocol: Document 11/01/19 08:27 [facility] (Rec: 11/01/19 09:51 [facility] [id number]) Physical Therapy Assessment Goals Four Impairment ability to get up/down from chair 5x sit<>stand=22 sec Short Term Goal (STG) Pt will be able to do 5x sit to improvement intern 18 sec to show improved ability to get up/ down from chair. STG Duration 11/10/19 Filter Tank Tender Helper Goal (LTG) Pt will be able to do 5x sit to improvement intern 13 sec to show improved ability to get up/ down from chair. LTG Duration 12/11/19 Three Impairment FGA Shelter Goal (LTG) Pt will score >25/30 on FGA to show low risk for falls. LTG Duration 12/11/19 Two Filter Tank Tender Helper Goal (LTG) Pt will be able to bend over to put on shoes without inc pain. LTG Duration 12/11/19 One Impairment strength Short Term Goal (STG) Pt will be indep with HEP. STG Duration 11/10/19 Shelter Goal (LTG) Pt will have 4+/5 LE strength B and 3/5 LPM in order to show improves stability in order to inc confidence with doing typical activities. LTG Duration 12/11/19 Assessment Summary Assessment Pt did well with balacne today . He was most challenged by uneven surface of balance board especailly backwards tilting. He did well with core activiation in supine. Physical Therapy Plan Frequency and Duration Frequency of Treatment 1-2x/week Duration of Treatment 2 months Plan of Care Start Date 10/11/19 Plan of Care End Date 12/11/19 Next Visit Focus/Plan Next Note Type Treatment Note Next Visit Plan work on R hip mobility & high level dynamic balance
--- NOTE | 2019-11-06 09:49 | PT.OTN ---
Current Diagnoses Spinal stenosis, lumbar region with neurogenic claudication (11/06/19) Difficulty in walking, not elsewhere classified (11/06/19) Abnormal posture (11/06/19) Weakness (11/06/19) Physical Therapy Treatment Note PT-OP-A Visit Information Start: 10/11/19 08:57 Freq: Status: Active Protocol: Document 11/06/19 09:05 [facility] (Rec: 11/06/19 09:48 [facility] [id number]) Out-Patient Physical Therapy Visit Information Visit Information Visit Type Treatment Note Visit Note 09/16 Visit Start Time 09:04 Visit Stop Time 09:54 Total Visit Minutes 50 Visit Number 7 Number of CASH GRAIN FARMER Visits 0 PT-OP-B Current Condition Start: 10/11/19 08:57 Freq: Status: Active Protocol: Document 10/11/19 08:58 [facility] (Rec: 10/11/19 10:36 [facility] [id number]) Current Condition History of Current Condition Onset Date chronic Current Complaints L>R LBP and R hip History of Current Condition Pt reprots his pain in LB and hip is worse recently and R hip bothers him especially when bending over especially to R side. Pt has been using walking sticks when he is going on walks and using a cane for around the yard, but no AD in the house. Pt notes he gets a sudden weakness sometimes in L LB where it feels like it gives out. Pt reports waking up with serious cramps in R leg and pain in R knee. Pt reports he can massage that pain away. Pt reports he notices he is a little wobbly sometimes. notes his posture is not great and notes he cannot keep up well when walking his . Reports walking too long can cause LBP. notes he has more trouble getting up and down from a chair especially in a lower chair. Prior Treatments and Tests PT which helps Treatment Goals Patient/Caregiver Goals find out which exercises to be doing, inc strength and balance PT-OP-C Subjective Start: 10/11/19 08:57 Freq: Status: Active Protocol: Document 11/06/19 09:05 [facility] (Rec: 11/06/19 09:48 [facility] [id number]) OP-PT Subjective Patient Comments Patient Comments Pt walked some long walks and his legs felt good. He walked on the sand one day. His back spasmed occasionally on the walks and wehn rolling in bed. PT-OP-E Functional Tests Start: 10/11/19 08:57 Freq: Status: Active Protocol: Document 10/11/19 08:58 [facility] (Rec: 10/11/19 10:36 [facility] [id number]) Functional Tests Dynamic Gait Index (DGI) Score 22 Five Times Sit to Stand Test Score 22 PT-OP-G Mobility & Gait Start: 10/11/19 08:57 Freq: Status: Active Protocol: Document 10/11/19 08:58 [facility] (Rec: 10/11/19 10:36 [facility] [id number]) OP Gait Assessment Comments Gait Comments Pt has inc fwd flex at trunk, lat leaning and primarily leg walker PT-OP-J Posture/Palpation/Skin Start: 10/11/19 08:57 Freq: Status: Active Protocol: Document 10/11/19 08:58 [facility] (Rec: 10/11/19 10:36 [facility] [id number]) Posture Evaluation [facility] Postural Classification System Lumbar Protective Mechanism Left AP 1 Lumbar Protective Mechanism Right AP 0 Lumbar Protective Mechanism Left PA 1 Lumbar Protective Mechanism Right PA 1 Comments Posture Comments fwd flex at hips, inc kyphosis PT-OP-L Special Tests Start: 10/11/19 08:57 Freq: Status: Active Protocol: Document 10/11/19 08:58 [facility] (Rec: 10/11/19 10:36 [facility] [id number]) Special Tests Lumbar Spine Special Tests Slump Test Results neg B Straight Leg Raise Test Results neg B HS tightness to about 40 deg hip flex PT-OP-M Strength Start: 10/11/19 08:57 Freq: Status: Active Protocol: Document 10/11/19 08:58 [facility] (Rec: 10/11/19 10:36 [facility] [id number]) Hip Strength Hip Manual Muscle Testing Left Flexion (L2) 4 Good Extension (S1) 3+ Fair+ Abduction 4- Good- External Rotation 4- Good- Internal Rotation 4 Good Right Flexion (L2) 4- Good- Extension (S1) 3+ Fair+ Abduction 3+ Fair+ External Rotation 3- Fair- Internal Rotation 3+ Fair+ Knee Strength Knee Manual Muscle Testing Right Flexion (S2) 4 Good Extension (L3) 4 Good Left Flexion (S2) 4 Good Extension (L3) 4+ Good+ Ankle/Foot Strength Ankle and Foot Manual Muscle Testing Right Dorsiflexion (L4) 5 Normal Plantarflexion (S1) 5 Normal Left Dorsiflexion (L4) 5 Normal Plantarflexion (S1) 5 Normal Comments PF tested seated PT-OP-Q Treatments Start: 10/11/19 08:57 Freq: Status: Active Protocol: Document 11/06/19 09:05 [facility] (Rec: 11/06/19 09:48 [facility] [id number]) Cardio Equipment Recumbent Bicycle Duration (Minutes) 5 Resistance 11 Seat Position 12 Gym Equipment Shuttle Balance 1 Details red clips Reps/Duration w/balloon toss except side WBOS Comments fwd: WBOS balance w/head turns & wt shifts, NBOS, Staggered stance B side: WBOS & NBOS Manual Therapy Treatment Soft Tissue Mobilization 4 Body Location QL &glutes R Mobilization Type Rolling,Sustained Pressure Body Position Sidelying 3 Body Location ant sup iliac crest R Mobilization Type Rolling,Strumming,Sustained Pressure Neuro Re-Education Treatment Balance Activities 5 Details fwd walking EC Reps/Duration 2x50ft 4 Details head turns w/walking fwd/back Reps/Duration 2x50ft ea Comments vertical and horiztonal 2 Details backwards walk fast Surface EC Reps/Duration 2x50ft 3 Details fwd marching Reps/Duration 50ft 1 Details tandem walking Reps/Duration 50ft Other Activities 1 Details PNF ant elevation & post depression Comments 1. prolonged holds PT-OP-R Modalities Start: 10/11/19 08:57 Freq: Status: Active Protocol: Document 11/06/19 09:05 [facility] (Rec: 11/06/19 09:49 [facility] [id number]) Hot Pack/Cold Pack Treatment Cold Pack Location LS Patient Position Hooklying PT-OP-T Assessment and Plan Start: 10/11/19 08:57 Freq: Status: Active Protocol: Document 11/06/19 09:05 [facility] (Rec: 11/06/19 09:48 [facility] [id number]) Physical Therapy Assessment Goals Four Impairment ability to get up/down from chair 5x sit<>stand=22 sec Short Term Goal (STG) Pt will be able to do 5x sit to nursing specialist 18 sec to show improved ability to get up/ down from chair. STG Duration 11/10/19 Half-Way Goal (LTG) Pt will be able to do 5x sit to nursing specialist 13 sec to show improved ability to get up/ down from chair. LTG Duration 12/11/19 Three Impairment FGA Mail Clerks Supervisor Goal (LTG) Pt will score >25/30 on FGA to show low risk for falls. LTG Duration 12/11/19 Two Half-Way Goal (LTG) Pt will be able to bend over to put on shoes without inc pain. LTG Duration 12/11/19 One Impairment strength Short Term Goal (STG) Pt will be indep with HEP. STG Duration 11/10/19 Half-Way Goal (LTG) Pt will have 4+/5 LE strength B and 3/5 LPM in order to show improves stability in order to inc confidence with doing typical activities. LTG Duration 12/11/19 Assessment Summary Assessment Pt had difficulty with prolonged holds for PNF and has limited range which likely contributes to his pain with rolling and walking. Imrpoved performance wiwth balance today Physical Therapy Plan Frequency and Duration Frequency of Treatment 1-2x/week Duration of Treatment 2 months Plan of Care Start Date 10/11/19 Plan of Care End Date 12/11/19 Next Visit Focus/Plan Next Note Type Treatment Note Next Visit Plan work on R hip mobility & high level dynamic balance & PNF patterns for rolling & walking
--- NOTE | 2019-11-08 09:02 | PT.OTN ---
Current Diagnoses Spinal stenosis, lumbar region with neurogenic claudication (11/08/19) Difficulty in walking, not elsewhere classified (11/08/19) Abnormal posture (11/08/19) Weakness (11/08/19) Physical Therapy Treatment Note PT-OP-A Visit Information Start: 10/11/19 08:57 Freq: Status: Active Protocol: Document 11/08/19 08:19 [facility] (Rec: 11/08/19 09:02 [facility] [id number]) Out-Patient Physical Therapy Visit Information Visit Information Visit Type Treatment Note Visit Note 10/17 Visit Start Time 08:14 Visit Stop Time 09:06 Total Visit Minutes 52 Visit Number 8 Number of HEALTH CONSULTANT Visits 0 PT-OP-B Current Condition Start: 10/11/19 08:57 Freq: Status: Active Protocol: Document 10/11/19 08:58 [facility] (Rec: 10/11/19 10:36 [facility] [id number]) Current Condition History of Current Condition Onset Date chronic Current Complaints L>R LBP and R hip History of Current Condition Pt reprots his pain in LB and hip is worse recently and R hip bothers him especially when bending over especially to R side. Pt has been using walking sticks when he is going on walks and using a cane for around the yard, but no AD in the house. Pt notes he gets a sudden weakness sometimes in L LB where it feels like it gives out. Pt reports waking up with serious cramps in R leg and pain in R knee. Pt reports he can massage that pain away. Pt reports he notices he is a little wobbly sometimes. notes his posture is not great and notes he cannot keep up well when walking his . Reports walking too long can cause LBP. notes he has more trouble getting up and down from a chair especially in a lower chair. Prior Treatments and Tests PT which helps Treatment Goals Patient/Caregiver Goals find out which exercises to be doing, inc strength and balance PT-OP-C Subjective Start: 10/11/19 08:57 Freq: Status: Active Protocol: Document 11/08/19 08:19 [facility] (Rec: 11/08/19 09:02 [facility] [id number]) OP-PT Subjective Patient Comments Patient Comments Pt reports no long walks since last treatment. PT-OP-E Functional Tests Start: 10/11/19 08:57 Freq: Status: Active Protocol: Document 10/11/19 08:58 [facility] (Rec: 10/11/19 10:36 [facility] [id number]) Functional Tests Dynamic Gait Index (DGI) Score 22 Five Times Sit to Stand Test Score 22 PT-OP-G Mobility & Gait Start: 10/11/19 08:57 Freq: Status: Active Protocol: Document 10/11/19 08:58 [facility] (Rec: 10/11/19 10:36 [facility] [id number]) OP Gait Assessment Comments Gait Comments Pt has inc fwd flex at trunk, lat leaning and primarily leg walker PT-OP-J Posture/Palpation/Skin Start: 10/11/19 08:57 Freq: Status: Active Protocol: Document 10/11/19 08:58 [facility] (Rec: 10/11/19 10:36 [facility] [id number]) Posture Evaluation [facility] Postural Classification System Lumbar Protective Mechanism Left AP 1 Lumbar Protective Mechanism Right AP 0 Lumbar Protective Mechanism Left PA 1 Lumbar Protective Mechanism Right PA 1 Comments Posture Comments fwd flex at hips, inc kyphosis PT-OP-L Special Tests Start: 10/11/19 08:57 Freq: Status: Active Protocol: Document 10/11/19 08:58 [facility] (Rec: 10/11/19 10:36 [facility] [id number]) Special Tests Lumbar Spine Special Tests Slump Test Results neg B Straight Leg Raise Test Results neg B HS tightness to about 40 deg hip flex PT-OP-M Strength Start: 10/11/19 08:57 Freq: Status: Active Protocol: Document 10/11/19 08:58 [facility] (Rec: 10/11/19 10:36 [facility] [id number]) Hip Strength Hip Manual Muscle Testing Left Flexion (L2) 4 Good Extension (S1) 3+ Fair+ Abduction 4- Good- External Rotation 4- Good- Internal Rotation 4 Good Right Flexion (L2) 4- Good- Extension (S1) 3+ Fair+ Abduction 3+ Fair+ External Rotation 3- Fair- Internal Rotation 3+ Fair+ Knee Strength Knee Manual Muscle Testing Right Flexion (S2) 4 Good Extension (L3) 4 Good Left Flexion (S2) 4 Good Extension (L3) 4+ Good+ Ankle/Foot Strength Ankle and Foot Manual Muscle Testing Right Dorsiflexion (L4) 5 Normal Plantarflexion (S1) 5 Normal Left Dorsiflexion (L4) 5 Normal Plantarflexion (S1) 5 Normal Comments PF tested seated PT-OP-Q Treatments Start: 10/11/19 08:57 Freq: Status: Active Protocol: Document 11/08/19 08:19 [facility] (Rec: 11/08/19 09:02 [facility] [id number]) Cardio Equipment Recumbent Bicycle Duration (Minutes) 6 Resistance 11 Seat Position 12 Gym Equipment Shuttle Balance 1 Details red clips Comments fwd: WBOS balance w/head turns & wt shifts, NBOS, Staggered stance B side: WBOS & NBOS Manual Therapy Treatment Soft Tissue Mobilization 4 Body Location QL &glutes R Mobilization Type Rolling,Sustained Pressure Body Position Sidelying 3 Body Location ant & post sup iliac crest R Mobilization Type Rolling,Strumming,Sustained Pressure Neuro Re-Education Treatment Balance Activities 5 Details fwd & back walking EC Reps/Duration 2x50ft 4 Details head turns w/walking fwd/back Reps/Duration 50ft ea Comments vertical and horiztonal 2 Details bosu Comments 1. step ups w/4 sec balance B x5 ea 2. squats x12 3 Details fwd marching Reps/Duration 50ftx2 Other Activities 1 Details PNF ant elevation & post depression Comments 1. prolonged holds PT-OP-R Modalities Start: 10/11/19 08:57 Freq: Status: Active Protocol: Document 11/08/19 08:19 [facility] (Rec: 11/08/19 09:02 [facility] [id number]) Hot Pack/Cold Pack Treatment Cold Pack Location LS Patient Position Hooklying PT-OP-T Assessment and Plan Start: 10/11/19 08:57 Freq: Status: Active Protocol: Document 11/08/19 08:19 [facility] (Rec: 11/08/19 09:02 [facility] [id number]) Physical Therapy Assessment Goals Four Impairment ability to get up/down from chair 5x sit<>stand=22 sec Short Term Goal (STG) Pt will be able to do 5x sit to interactive graphic designer 18 sec to show improved ability to get up/ down from chair. STG Duration 11/10/19 Licensed Pesticide Applicator Goal (LTG) Pt will be able to do 5x sit to interactive graphic designer 13 sec to show improved ability to get up/ down from chair. LTG Duration 12/11/19 Three Impairment FGA [facility] Goal (LTG) Pt will score >25/30 on FGA to show low risk for falls. LTG Duration 12/11/19 Two Licensed Pesticide Applicator Goal (LTG) Pt will be able to bend over to put on shoes without inc pain. LTG Duration 12/11/19 One Impairment strength Short Term Goal (STG) Pt will be indep with HEP. STG Duration 11/10/19 [facility] Goal (LTG) Pt will have 4+/5 LE strength B and 3/5 LPM in order to show improves stability in order to inc confidence with doing typical activities. LTG Duration 12/11/19 Assessment Summary Assessment Improved ability with dynamic balance exercises today, but had difficulty with holding SLS position in july for longer time. He had inc difficulty on balance board today. Physical Therapy Plan Frequency and Duration Frequency of Treatment 1-2x/week Duration of Treatment 2 months Plan of Care Start Date 10/11/19 Plan of Care End Date 12/11/19 Next Visit Focus/Plan Next Note Type Treatment Note Next Visit Plan work on R hip mobility & high level dynamic balance & PNF patterns for rolling & walking
--- NOTE | 2019-11-14 11:20 | PT.OTN ---
Current Diagnoses Spinal stenosis, lumbar region with neurogenic claudication (11/14/19) Difficulty in walking, not elsewhere classified (11/14/19) Abnormal posture (11/14/19) Weakness (11/14/19) Physical Therapy Treatment Note PT-OP-A Visit Information Start: 10/11/19 08:57 Freq: Status: Active Protocol: Document 11/14/19 10:36 [facility] (Rec: 11/14/19 11:20 [facility] [id number]) Out-Patient Physical Therapy Visit Information Visit Information Visit Type Treatment Note Visit Note 11/16 Visit Start Time 10:35 Visit Stop Time 11:12 Total Visit Minutes 38 Visit Number 9 Number of MUSIC TEACHER Visits 0 PT-OP-B Current Condition Start: 10/11/19 08:57 Freq: Status: Active Protocol: Document 10/11/19 08:58 [facility] (Rec: 10/11/19 10:36 [facility] [id number]) Current Condition History of Current Condition Onset Date chronic Current Complaints L>R LBP and R hip History of Current Condition Pt reprots his pain in LB and hip is worse recently and R hip bothers him especially when bending over especially to R side. Pt has been using walking sticks when he is going on walks and using a cane for around the yard, but no AD in the house. Pt notes he gets a sudden weakness sometimes in L LB where it feels like it gives out. Pt reports waking up with serious cramps in R leg and pain in R knee. Pt reports he can massage that pain away. Pt reports he notices he is a little wobbly sometimes. notes his posture is not great and notes he cannot keep up well when walking his . Reports walking too long can cause LBP. notes he has more trouble getting up and down from a chair especially in a lower chair. Prior Treatments and Tests PT which helps Treatment Goals Patient/Caregiver Goals find out which exercises to be doing, inc strength and balance PT-OP-C Subjective Start: 10/11/19 08:57 Freq: Status: Active Protocol: Document 11/14/19 10:36 [facility] (Rec: 11/14/19 11:20 [facility] [id number]) OP-PT Subjective Patient Comments Patient Comments Pt reports he has been walking recently. Reports pain is still there. He ewas working the garage and picked up a toolb ox and turn to put it back in its places and felt it in his back. PT-OP-E Functional Tests Start: 10/11/19 08:57 Freq: Status: Active Protocol: Document 10/11/19 08:58 [facility] (Rec: 10/11/19 10:36 [facility] [id number]) Functional Tests Dynamic Gait Index (DGI) Score 22 Five Times Sit to Stand Test Score 22 PT-OP-G Mobility & Gait Start: 10/11/19 08:57 Freq: Status: Active Protocol: Document 10/11/19 08:58 [facility] (Rec: 10/11/19 10:36 [facility] [id number]) OP Gait Assessment Comments Gait Comments Pt has inc fwd flex at trunk, lat leaning and primarily leg walker PT-OP-J Posture/Palpation/Skin Start: 10/11/19 08:57 Freq: Status: Active Protocol: Document 10/11/19 08:58 [facility] (Rec: 10/11/19 10:36 [facility] [id number]) Posture Evaluation [facility] Postural Classification System Lumbar Protective Mechanism Left AP 1 Lumbar Protective Mechanism Right AP 0 Lumbar Protective Mechanism Left PA 1 Lumbar Protective Mechanism Right PA 1 Comments Posture Comments fwd flex at hips, inc kyphosis PT-OP-L Special Tests Start: 10/11/19 08:57 Freq: Status: Active Protocol: Document 10/11/19 08:58 [facility] (Rec: 10/11/19 10:36 [facility] [id number]) Special Tests Lumbar Spine Special Tests Slump Test Results neg B Straight Leg Raise Test Results neg B HS tightness to about 40 deg hip flex PT-OP-M Strength Start: 10/11/19 08:57 Freq: Status: Active Protocol: Document 10/11/19 08:58 [facility] (Rec: 10/11/19 10:36 [facility] [id number]) Hip Strength Hip Manual Muscle Testing Left Flexion (L2) 4 Good Extension (S1) 3+ Fair+ Abduction 4- Good- External Rotation 4- Good- Internal Rotation 4 Good Right Flexion (L2) 4- Good- Extension (S1) 3+ Fair+ Abduction 3+ Fair+ External Rotation 3- Fair- Internal Rotation 3+ Fair+ Knee Strength Knee Manual Muscle Testing Right Flexion (S2) 4 Good Extension (L3) 4 Good Left Flexion (S2) 4 Good Extension (L3) 4+ Good+ Ankle/Foot Strength Ankle and Foot Manual Muscle Testing Right Dorsiflexion (L4) 5 Normal Plantarflexion (S1) 5 Normal Left Dorsiflexion (L4) 5 Normal Plantarflexion (S1) 5 Normal Comments PF tested seated PT-OP-Q Treatments Start: 10/11/19 08:57 Freq: Status: Active Protocol: Document 11/14/19 10:36 [facility] (Rec: 11/14/19 11:20 [facility] [id number]) Cardio Equipment Recumbent Bicycle Duration (Minutes) 6 Resistance 11 Seat Position 12 Gym Equipment Shuttle Balance 1 Details red clips Reps/Duration while hitting balloon fwd Comments fwd: WBOS balance w/head turns & wt shifts, NBOS, Staggered stance B side: WBOS & NBOS Therapeutic Exercises Supine Exercises Tabd Supine Exercise Name alt marching Side bilateral Reps/Minutes 10x3 Comments 1. set 1 single leg 2. 2nd 2 with simaltaneous motion 1 Supine Exercise Name single leg press flex Side bilateral Reps/Minutes 30 sec Manual Therapy Treatment Soft Tissue Mobilization 2 Body Location abdomen R 1 Body Location iliacus R Mobilization Type Rolling,Sustained Pressure Comments w/LTR Neuro Re-Education Treatment Other Activities 1 Details PNF R for rolling mass flexion Comments also concentric ant elevation Self-Care/Home Management Treatment Education Other Education avoid bending & twisting when lifting PT-OP-R Modalities Start: 10/11/19 08:57 Freq: Status: Active Protocol: Document 11/08/19 08:19 [facility] (Rec: 11/08/19 09:02 [facility] [id number]) Hot Pack/Cold Pack Treatment Cold Pack Location LS Patient Position Hooklying PT-OP-T Assessment and Plan Start: 10/11/19 08:57 Freq: Status: Active Protocol: Document 11/14/19 10:36 [facility] (Rec: 11/14/19 11:20 [facility] [id number]) Physical Therapy Assessment Goals Four Impairment ability to get up/down from chair 5x sit<>stand=22 sec Short Term Goal (STG) Pt will be able to do 5x sit to engineer system administrator 18 sec to show improved ability to get up/ down from chair. STG Duration 11/10/19 Alf Goal (LTG) Pt will be able to do 5x sit to engineer system administrator 13 sec to show improved ability to get up/ down from chair. LTG Duration 12/11/19 Three Impairment FGA Alf Goal (LTG) Pt will score >25/30 on FGA to show low risk for falls. LTG Duration 12/11/19 Two Bull Bucker Goal (LTG) Pt will be able to bend over to put on shoes without inc pain. LTG Duration 12/11/19 One Impairment strength Short Term Goal (STG) Pt will be indep with HEP. STG Duration 11/10/19 Alf Goal (LTG) Pt will have 4+/5 LE strength B and 3/5 LPM in order to show improves stability in order to inc confidence with doing typical activities. LTG Duration 12/11/19 Assessment Summary Assessment Pt had imrpoved ant elevation of pelvis with manual treatment and was able to do better roll w/max flex pattern . Pt felt pain into back when working ant on hip and abdomen today taht subsided with release Physical Therapy Plan Frequency and Duration Frequency of Treatment 1-2x/week Duration of Treatment 2 months Plan of Care Start Date 10/11/19 Plan of Care End Date 12/11/19 Next Visit Focus/Plan Next Note Type Treatment Note Next Visit Plan work on R hip mobility & high level dynamic balance & PNF patterns for rolling & walking
--- NOTE | 2019-11-16 09:15 | PT.OTN ---
Current Diagnoses Spinal stenosis, lumbar region with neurogenic claudication (11/16/19) Difficulty in walking, not elsewhere classified (11/16/19) Abnormal posture (11/16/19) Weakness (11/16/19) Physical Therapy Treatment Note PT-OP-A Visit Information Start: 10/11/19 08:57 Freq: Status: Active Protocol: Document 11/16/19 08:22 [facility] (Rec: 11/16/19 09:15 [facility] [id number]) Out-Patient Physical Therapy Visit Information Visit Information Visit Type Progress Note Visit Note 05/19 Visit Start Time 08:18 Visit Stop Time 08:57 Total Visit Minutes 39 Visit Number 10 Number of APPLICATION SUPPORT MANAGER Visits 0 PT-OP-B Current Condition Start: 10/11/19 08:57 Freq: Status: Active Protocol: Document 10/11/19 08:58 [facility] (Rec: 10/11/19 10:36 [facility] [id number]) Current Condition History of Current Condition Onset Date chronic Current Complaints L>R LBP and R hip History of Current Condition Pt reprots his pain in LB and hip is worse recently and R hip bothers him especially when bending over especially to R side. Pt has been using walking sticks when he is going on walks and using a cane for around the yard, but no AD in the house. Pt notes he gets a sudden weakness sometimes in L LB where it feels like it gives out. Pt reports waking up with serious cramps in R leg and pain in R knee. Pt reports he can massage that pain away. Pt reports he notices he is a little wobbly sometimes. notes his posture is not great and notes he cannot keep up well when walking his . Reports walking too long can cause LBP. notes he has more trouble getting up and down from a chair especially in a lower chair. Prior Treatments and Tests PT which helps Treatment Goals Patient/Caregiver Goals find out which exercises to be doing, inc strength and balance PT-OP-C Subjective Start: 10/11/19 08:57 Freq: Status: Active Protocol: Document 11/16/19 08:22 [facility] (Rec: 11/16/19 09:15 [facility] [id number]) OP-PT Subjective Patient Comments Patient Comments Pt reports compliance with exercises because they feel like theyhelp PT-OP-E Functional Tests Start: 10/11/19 08:57 Freq: Status: Active Protocol: Document 11/16/19 08:22 [facility] (Rec: 11/16/19 09:15 [facility] [id number]) Functional Tests 30 Second Sit to Stand Test Score 6 Five Times Sit to Stand Test Score 24 Functional Gait Assessment Score 22 PT-OP-G Mobility & Gait Start: 10/11/19 08:57 Freq: Status: Active Protocol: Document 10/11/19 08:58 [facility] (Rec: 10/11/19 10:36 [facility] [id number]) OP Gait Assessment Comments Gait Comments Pt has inc fwd flex at trunk, lat leaning and primarily leg walker PT-OP-J Posture/Palpation/Skin Start: 10/11/19 08:57 Freq: Status: Active Protocol: Document 11/16/19 08:22 [facility] (Rec: 11/16/19 09:15 [facility] [id number]) Posture Evaluation [facility] Postural Classification System Lumbar Protective Mechanism Left AP 2 Lumbar Protective Mechanism Right AP 2 Lumbar Protective Mechanism Left PA 2 Lumbar Protective Mechanism Right PA 1 PT-OP-L Special Tests Start: 10/11/19 08:57 Freq: Status: Active Protocol: Document 10/11/19 08:58 [facility] (Rec: 10/11/19 10:36 [facility] [id number]) Special Tests Lumbar Spine Special Tests Slump Test Results neg B Straight Leg Raise Test Results neg B HS tightness to about 40 deg hip flex PT-OP-M Strength Start: 10/11/19 08:57 Freq: Status: Active Protocol: Document 11/16/19 08:22 [facility] (Rec: 11/16/19 09:15 [facility] [id number]) Hip Strength Hip Manual Muscle Testing Left Flexion (L2) 4 Good Extension (S1) 3+ Fair+ Abduction 4- Good- External Rotation 4 Good Internal Rotation 4+ Good+ Right Flexion (L2) 4- Good- Extension (S1) 3+ Fair+ Abduction 3+ Fair+ External Rotation 3+ Fair+ Internal Rotation 3+ Fair+ Knee Strength Knee Manual Muscle Testing Right Flexion (S2) 5 Normal Extension (L3) 5 Normal Left Flexion (S2) 5 Normal Extension (L3) 5 Normal Ankle/Foot Strength Ankle and Foot Manual Muscle Testing Right Dorsiflexion (L4) 5 Normal Plantarflexion (S1) 5 Normal Left Dorsiflexion (L4) 5 Normal Plantarflexion (S1) 5 Normal Comments PF tested seated PT-OP-Q Treatments Start: 10/11/19 08:57 Freq: Status: Active Protocol: Document 11/16/19 08:22 [facility] (Rec: 11/16/19 09:15 [facility] [id number]) Cardio Equipment Recumbent Bicycle Duration (Minutes) 7 Resistance 11 Seat Position 12 Manual Therapy Treatment Soft Tissue Mobilization 4 Body Location QL &ES R Mobilization Type Rolling,Sustained Pressure Body Position Sidelying Neuro Re-Education Treatment Balance Activities 5 Details FGA Other Activities 1 Details post depression Comments rhythmic iniation PT-OP-R Modalities Start: 10/11/19 08:57 Freq: Status: Active Protocol: Document 11/16/19 08:22 [facility] (Rec: 11/16/19 09:15 [facility] [id number]) Hot Pack/Cold Pack Treatment Cold Pack Location LS Patient Position Hooklying PT-OP-T Assessment and Plan Start: 10/11/19 08:57 Freq: Status: Active Protocol: Document 11/16/19 08:22 [facility] (Rec: 11/16/19 09:15 [facility] [id number]) Physical Therapy Assessment Goals Four Impairment ability to get up/down from chair 5x sit<>stand=22 sec Short Term Goal (STG) Pt will be able to do 5x sit to client care coordinator 18 sec to show improved ability to get up/ down from chair. 11/15-still limited STG Duration 11/10/19 Low Voltage Electrician Goal (LTG) Pt will be able to do 5x sit to client care coordinator 13 sec to show improved ability to get up/ down from chair. LTG Duration 12/11/19 Three Impairment FGA Custodial Goal (LTG) Pt will score >25/30 on FGA to show low risk for falls. 11/15-22/25 LTG Duration 12/11/19 Two Custodial Goal (LTG) Pt will be able to bend over to put on shoes without inc pain. 11/15-pt reports pain is very minimal LTG Duration 12/11/19 One Impairment strength Short Term Goal (STG) Pt will be indep with HEP. STG Duration achieved Custodial Goal (LTG) Pt will have 4+/5 LE strength B and 3/5 LPM in order to show improves stability in order to inc confidence with doing typical activities. 11/15-improving LTG Duration 12/11/19 Assessment Summary Assessment Pt is making good progress iwth core stability and is increasing in hip strength but is still very limited with especially abd & ext B and rotators on R. Balance improving and only 3 points away from low fall risk on FGA Physical Therapy Plan Frequency and Duration Frequency of Treatment 1-2x/week Duration of Treatment 2 months Plan of Care Start Date 10/11/19 Plan of Care End Date 12/11/19 Therapeutic Interventions Therapeutic Interventions Aquatic Therapy,Balance Training,Gait Training,Home Exercise Program,Joint Mobilizations,Manual Therapy, Neuromuscular Re-education, Patient/Caregiver Education, Self-Care/Home Management,Soft Tissue Mobilization,Taping, Therapeutic Activities, Therapeutic Exercises Modalities Cold Pack/Ice Massage,Electric Stimulation,Hot Packs, Ultrasound Next Visit Focus/Plan Next Note Type Treatment Note Next Visit Plan work on R hip mobility & high level dynamic balance & PNF patterns for rolling & walking
--- NOTE | 2019-11-16 15:31 | PT.OPPN ---
Current Diagnoses Spinal stenosis, lumbar region with neurogenic claudication (11/21/19) Difficulty in walking, not elsewhere classified (11/21/19) Abnormal posture (11/21/19) Weakness (11/21/19) Physical Therapy Progress Note PT-OP-A Visit Information Start: 10/11/19 08:57 Freq: Status: Active Protocol: Document 11/16/19 08:22 [facility] (Rec: 11/16/19 09:15 [facility] [id number]) Out-Patient Physical Therapy Visit Information Visit Information Visit Type Progress Note Visit Note 05/19 Visit Start Time 08:18 Visit Stop Time 08:57 Total Visit Minutes 39 Visit Number 10 Number of TEACHING ASSISTANT Visits 0 PT-OP-B Current Condition Start: 10/11/19 08:57 Freq: Status: Active Protocol: Document 10/11/19 08:58 [facility] (Rec: 10/11/19 10:36 [facility] [id number]) Current Condition History of Current Condition Onset Date chronic Current Complaints L>R LBP and R hip History of Current Condition Pt reprots his pain in LB and hip is worse recently and R hip bothers him especially when bending over especially to R side. Pt has been using walking sticks when he is going on walks and using a cane for around the yard, but no AD in the house. Pt notes he gets a sudden weakness sometimes in L LB where it feels like it gives out. Pt reports waking up with serious cramps in R leg and pain in R knee. Pt reports he can massage that pain away. Pt reports he notices he is a little wobbly sometimes. notes his posture is not great and notes he cannot keep up well when walking his . Reports walking too long can cause LBP. notes he has more trouble getting up and down from a chair especially in a lower chair. Prior Treatments and Tests PT which helps Treatment Goals Patient/Caregiver Goals find out which exercises to be doing, inc strength and balance PT-OP-C Subjective Start: 10/11/19 08:57 Freq: Status: Active Protocol: Document 11/16/19 08:22 [facility] (Rec: 11/16/19 09:15 [facility] [id number]) OP-PT Subjective Patient Comments Patient Comments Pt reports compliance with exercises because they feel like theyhelp PT-OP-E Functional Tests Start: 10/11/19 08:57 Freq: Status: Active Protocol: Document 11/16/19 08:22 [facility] (Rec: 11/16/19 09:15 [facility] [id number]) Functional Tests 30 Second Sit to Stand Test Score 6 Five Times Sit to Stand Test Score 24 Functional Gait Assessment Score 22 PT-OP-G Mobility & Gait Start: 10/11/19 08:57 Freq: Status: Active Protocol: Document 10/11/19 08:58 [facility] (Rec: 10/11/19 10:36 [facility] [id number]) OP Gait Assessment Comments Gait Comments Pt has inc fwd flex at trunk, lat leaning and primarily leg walker PT-OP-J Posture/Palpation/Skin Start: 10/11/19 08:57 Freq: Status: Active Protocol: Document 11/16/19 08:22 [facility] (Rec: 11/16/19 09:15 [facility] [id number]) Posture Evaluation [facility] Postural Classification System Lumbar Protective Mechanism Left AP 2 Lumbar Protective Mechanism Right AP 2 Lumbar Protective Mechanism Left PA 2 Lumbar Protective Mechanism Right PA 1 PT-OP-L Special Tests Start: 10/11/19 08:57 Freq: Status: Active Protocol: Document 10/11/19 08:58 [facility] (Rec: 10/11/19 10:36 [facility] [id number]) Special Tests Lumbar Spine Special Tests Slump Test Results neg B Straight Leg Raise Test Results neg B HS tightness to about 40 deg hip flex PT-OP-M Strength Start: 10/11/19 08:57 Freq: Status: Active Protocol: Document 11/16/19 08:22 [facility] (Rec: 11/16/19 09:15 [facility] [id number]) Hip Strength Hip Manual Muscle Testing Left Flexion (L2) 4 Good Extension (S1) 3+ Fair+ Abduction 4- Good- External Rotation 4 Good Internal Rotation 4+ Good+ Right Flexion (L2) 4- Good- Extension (S1) 3+ Fair+ Abduction 3+ Fair+ External Rotation 3+ Fair+ Internal Rotation 3+ Fair+ Knee Strength Knee Manual Muscle Testing Right Flexion (S2) 5 Normal Extension (L3) 5 Normal Left Flexion (S2) 5 Normal Extension (L3) 5 Normal Ankle/Foot Strength Ankle and Foot Manual Muscle Testing Right Dorsiflexion (L4) 5 Normal Plantarflexion (S1) 5 Normal Left Dorsiflexion (L4) 5 Normal Plantarflexion (S1) 5 Normal Comments PF tested seated PT-OP-T Assessment and Plan Start: 10/11/19 08:57 Freq: Status: Active Protocol: Document 11/16/19 08:22 [facility] (Rec: 11/16/19 09:15 [facility] [id number]) Physical Therapy Assessment Goals Four Impairment ability to get up/down from chair 5x sit<>stand=22 sec Short Term Goal (STG) Pt will be able to do 5x sit to billing clinician 18 sec to show improved ability to get up/ down from chair. 11/15-still limited STG Duration 11/10/19 Detention Goal (LTG) Pt will be able to do 5x sit to billing clinician 13 sec to show improved ability to get up/ down from chair. LTG Duration 12/11/19 Three Impairment FGA Awning Installer Goal (LTG) Pt will score >25/30 on FGA to show low risk for falls. 11/15- LTG Duration 12/11/19 Two Detention Goal (LTG) Pt will be able to bend over to put on shoes without inc pain. 11/15-pt reports pain is very minimal LTG Duration 12/11/19 One Impairment strength Short Term Goal (STG) Pt will be indep with HEP. STG Duration achieved Detention Goal (LTG) Pt will have 4+/5 LE strength B and 3/5 LPM in order to show improves stability in order to inc confidence with doing typical activities. 11/15-improving LTG Duration 12/11/19 Assessment Summary Assessment Pt is making good progress iwth core stability and is increasing in hip strength but is still very limited with especially abd & ext B and rotators on R. Balance improving and only 3 points away from low fall risk on FGA Physical Therapy Plan Frequency and Duration Frequency of Treatment 1-2x/week Duration of Treatment 2 months Plan of Care Start Date 10/11/19 Plan of Care End Date 12/11/19 Therapeutic Interventions Therapeutic Interventions Aquatic Therapy,Balance Training,Gait Training,Home Exercise Program,Joint Mobilizations,Manual Therapy, Neuromuscular Re-education, Patient/Caregiver Education, Self-Care/Home Management,Soft Tissue Mobilization,Taping, Therapeutic Activities, Therapeutic Exercises Modalities Cold Pack/Ice Massage,Electric Stimulation,Hot Packs, Ultrasound Next Visit Focus/Plan Next Note Type Treatment Note Next Visit Plan work on R hip mobility & high level dynamic balance & PNF patterns for rolling & walking
--- NOTE | 2019-11-21 12:20 | PT.OTN ---
Current Diagnoses Spinal stenosis, lumbar region with neurogenic claudication (11/21/19) Difficulty in walking, not elsewhere classified (11/21/19) Abnormal posture (11/21/19) Weakness (11/21/19) Physical Therapy Treatment Note PT-OP-A Visit Information Start: 10/11/19 08:57 Freq: Status: Active Protocol: Document 11/21/19 10:31 [facility] (Rec: 11/21/19 12:19 [facility] [id number]) Out-Patient Physical Therapy Visit Information Visit Information Visit Type Treatment Note Visit Note 06/19 Visit Start Time 10:32 Visit Stop Time 11:15 Total Visit Minutes 43 Visit Number 11 Number of MEDICAL OR SURGICAL INSTRUMENT MAKER Visits 0 PT-OP-B Current Condition Start: 10/11/19 08:57 Freq: Status: Active Protocol: Document 10/11/19 08:58 [facility] (Rec: 10/11/19 10:36 [facility] [id number]) Current Condition History of Current Condition Onset Date chronic Current Complaints L>R LBP and R hip History of Current Condition Pt reprots his pain in LB and hip is worse recently and R hip bothers him especially when bending over especially to R side. Pt has been using walking sticks when he is going on walks and using a cane for around the yard, but no AD in the house. Pt notes he gets a sudden weakness sometimes in L LB where it feels like it gives out. Pt reports waking up with serious cramps in R leg and pain in R knee. Pt reports he can massage that pain away. Pt reports he notices he is a little wobbly sometimes. notes his posture is not great and notes he cannot keep up well when walking his . Reports walking too long can cause LBP. notes he has more trouble getting up and down from a chair especially in a lower chair. Prior Treatments and Tests PT which helps Treatment Goals Patient/Caregiver Goals find out which exercises to be doing, inc strength and balance PT-OP-C Subjective Start: 10/11/19 08:57 Freq: Status: Active Protocol: Document 11/21/19 10:31 [facility] (Rec: 11/21/19 12:19 [facility] [id number]) OP-PT Subjective Patient Comments Patient Comments Pt reports he has some very painful spasms in QL to glute region on R side. Notes he notices it when bending over and doing some others. Pt reports he feels like when he rolls side ot side with exercises on ground, his back is swollen. PT-OP-E Functional Tests Start: 10/11/19 08:57 Freq: Status: Active Protocol: Document 11/16/19 08:22 [facility] (Rec: 11/16/19 09:15 [facility] [id number]) Functional Tests 30 Second Sit to Stand Test Score 6 Five Times Sit to Stand Test Score 24 Functional Gait Assessment Score 22 PT-OP-G Mobility & Gait Start: 10/11/19 08:57 Freq: Status: Active Protocol: Document 10/11/19 08:58 [facility] (Rec: 10/11/19 10:36 [facility] [id number]) OP Gait Assessment Comments Gait Comments Pt has inc fwd flex at trunk, lat leaning and primarily leg walker PT-OP-J Posture/Palpation/Skin Start: 10/11/19 08:57 Freq: Status: Active Protocol: Document 11/16/19 08:22 [facility] (Rec: 11/16/19 09:15 [facility] [id number]) Posture Evaluation [facility] Postural Classification System Lumbar Protective Mechanism Left AP 2 Lumbar Protective Mechanism Right AP 2 Lumbar Protective Mechanism Left PA 2 Lumbar Protective Mechanism Right PA 1 PT-OP-L Special Tests Start: 10/11/19 08:57 Freq: Status: Active Protocol: Document 10/11/19 08:58 [facility] (Rec: 10/11/19 10:36 [facility] [id number]) Special Tests Lumbar Spine Special Tests Slump Test Results neg B Straight Leg Raise Test Results neg B HS tightness to about 40 deg hip flex PT-OP-M Strength Start: 10/11/19 08:57 Freq: Status: Active Protocol: Document 11/16/19 08:22 [facility] (Rec: 11/16/19 09:15 [facility] [id number]) Hip Strength Hip Manual Muscle Testing Left Flexion (L2) 4 Good Extension (S1) 3+ Fair+ Abduction 4- Good- External Rotation 4 Good Internal Rotation 4+ Good+ Right Flexion (L2) 4- Good- Extension (S1) 3+ Fair+ Abduction 3+ Fair+ External Rotation 3+ Fair+ Internal Rotation 3+ Fair+ Knee Strength Knee Manual Muscle Testing Right Flexion (S2) 5 Normal Extension (L3) 5 Normal Left Flexion (S2) 5 Normal Extension (L3) 5 Normal Ankle/Foot Strength Ankle and Foot Manual Muscle Testing Right Dorsiflexion (L4) 5 Normal Plantarflexion (S1) 5 Normal Left Dorsiflexion (L4) 5 Normal Plantarflexion (S1) 5 Normal Comments PF tested seated PT-OP-Q Treatments Start: 10/11/19 08:57 Freq: Status: Active Protocol: Document 11/21/19 10:31 [facility] (Rec: 11/21/19 12:19 [facility] [id number]) Cardio Equipment Recumbent Bicycle Duration (Minutes) 6 Resistance 11 Seat Position 12 Therapeutic Exercises Sidelying Exercises 4 Sidelying Exercise Name roll & reach Side bilateral Reps/Minutes 15 Standing Exercises 7 Standing Exercise Name squat Side bilateral Reps/Minutes 20 Therapeutic Activity Therapeutic Activity sit<>Stand Comments focus on scap squeeze & no back rounding; used yard stick on back Manual Therapy Treatment Soft Tissue Mobilization 4 Body Location QL &ES R & R along ant sup iliac crest Mobilization Type Rolling,Sustained Pressure Body Position Sidelying Neuro Re-Education Treatment Other Activities 1 Details post depression Comments 1.rhythmic iniation 2. sustained holds PT-OP-R Modalities Start: 10/11/19 08:57 Freq: Status: Active Protocol: Document 11/16/19 08:22 [facility] (Rec: 11/16/19 09:15 [facility] [id number]) Hot Pack/Cold Pack Treatment Cold Pack Location LS Patient Position Hooklying PT-OP-T Assessment and Plan Start: 10/11/19 08:57 Freq: Status: Active Protocol: Document 11/21/19 10:31 [facility] (Rec: 11/21/19 12:19 [facility] [id number]) Physical Therapy Assessment Goals Four Impairment ability to get up/down from chair 5x sit<>stand=22 sec Short Term Goal (STG) Pt will be able to do 5x sit to academic interventionist 18 sec to show improved ability to get up/ down from chair. 11/15-still limited STG Duration 11/10/19 Filler Mixer Goal (LTG) Pt will be able to do 5x sit to academic interventionist 13 sec to show improved ability to get up/ down from chair. LTG Duration 12/11/19 Three Impairment FGA Filler Mixer Goal (LTG) Pt will score >25/30 on FGA to show low risk for falls. 11/15- LTG Duration 12/11/19 Two Filler Mixer Goal (LTG) Pt will be able to bend over to put on shoes without inc pain. 11/15-pt reports pain is very minimal LTG Duration 12/11/19 One Impairment strength Short Term Goal (STG) Pt will be indep with HEP. STG Duration achieved Filler Mixer Goal (LTG) Pt will have 4+/5 LE strength B and 3/5 LPM in order to show improves stability in order to inc confidence with doing typical activities. 11/15-improving LTG Duration 12/11/19 Assessment Summary Assessment Pt had difficulty maintaining neutral lumbar spien posture with squat, hip hinge and sit< >stand. He required significant cueing throughout. He has significantly limited thoracic spine mobility which likely limits this. Physical Therapy Plan Frequency and Duration Frequency of Treatment 1-2x/week Duration of Treatment 2 months Plan of Care Start Date 10/11/19 Plan of Care End Date 12/11/19 Next Visit Focus/Plan Next Note Type Treatment Note Next Visit Plan work on R hip mobility & high level dynamic balance & PNF patterns for rolling & walking & review exericses
--- NOTE | 2019-11-23 17:49 | PT.OTN ---
Current Diagnoses Spinal stenosis, lumbar region with neurogenic claudication (11/23/19) Difficulty in walking, not elsewhere classified (11/23/19) Abnormal posture (11/23/19) Weakness (11/23/19) Physical Therapy Treatment Note PT-OP-A Visit Information Start: 10/11/19 08:57 Freq: Status: Active Protocol: Document 11/23/19 16:58 [facility] (Rec: 11/23/19 17:49 [facility] [id number]) Out-Patient Physical Therapy Visit Information Visit Information Visit Type Treatment Note Visit Note 07/17 Visit Start Time 16:46 Visit Stop Time 17:36 Total Visit Minutes 50 Visit Number 12 Number of ACQUISITION SPECIALIST Visits 0 PT-OP-B Current Condition Start: 10/11/19 08:57 Freq: Status: Active Protocol: Document 10/11/19 08:58 [facility] (Rec: 10/11/19 10:36 [facility] [id number]) Current Condition History of Current Condition Onset Date chronic Current Complaints L>R LBP and R hip History of Current Condition Pt reprots his pain in LB and hip is worse recently and R hip bothers him especially when bending over especially to R side. Pt has been using walking sticks when he is going on walks and using a cane for around the yard, but no AD in the house. Pt notes he gets a sudden weakness sometimes in L LB where it feels like it gives out. Pt reports waking up with serious cramps in R leg and pain in R knee. Pt reports he can massage that pain away. Pt reports he notices he is a little wobbly sometimes. notes his posture is not great and notes he cannot keep up well when walking his . Reports walking too long can cause LBP. notes he has more trouble getting up and down from a chair especially in a lower chair. Prior Treatments and Tests PT which helps Treatment Goals Patient/Caregiver Goals find out which exercises to be doing, inc strength and balance PT-OP-C Subjective Start: 10/11/19 08:57 Freq: Status: Active Protocol: Document 11/23/19 16:58 [facility] (Rec: 11/23/19 17:49 [facility] [id number]) OP-PT Subjective Patient Comments Patient Comments Pt reports pain still there in bed PT-OP-E Functional Tests Start: 10/11/19 08:57 Freq: Status: Active Protocol: Document 11/16/19 08:22 [facility] (Rec: 11/16/19 09:15 [facility] [id number]) Functional Tests 30 Second Sit to Stand Test Score 6 Five Times Sit to Stand Test Score 24 Functional Gait Assessment Score 22 PT-OP-G Mobility & Gait Start: 10/11/19 08:57 Freq: Status: Active Protocol: Document 10/11/19 08:58 [facility] (Rec: 10/11/19 10:36 [facility] [id number]) OP Gait Assessment Comments Gait Comments Pt has inc fwd flex at trunk, lat leaning and primarily leg walker PT-OP-J Posture/Palpation/Skin Start: 10/11/19 08:57 Freq: Status: Active Protocol: Document 11/16/19 08:22 [facility] (Rec: 11/16/19 09:15 [facility] [id number]) Posture Evaluation [facility] Postural Classification System Lumbar Protective Mechanism Left AP 2 Lumbar Protective Mechanism Right AP 2 Lumbar Protective Mechanism Left PA 2 Lumbar Protective Mechanism Right PA 1 PT-OP-L Special Tests Start: 10/11/19 08:57 Freq: Status: Active Protocol: Document 10/11/19 08:58 [facility] (Rec: 10/11/19 10:36 [facility] [id number]) Special Tests Lumbar Spine Special Tests Slump Test Results neg B Straight Leg Raise Test Results neg B HS tightness to about 40 deg hip flex PT-OP-M Strength Start: 10/11/19 08:57 Freq: Status: Active Protocol: Document 11/16/19 08:22 [facility] (Rec: 11/16/19 09:15 [facility] [id number]) Hip Strength Hip Manual Muscle Testing Left Flexion (L2) 4 Good Extension (S1) 3+ Fair+ Abduction 4- Good- External Rotation 4 Good Internal Rotation 4+ Good+ Right Flexion (L2) 4- Good- Extension (S1) 3+ Fair+ Abduction 3+ Fair+ External Rotation 3+ Fair+ Internal Rotation 3+ Fair+ Knee Strength Knee Manual Muscle Testing Right Flexion (S2) 5 Normal Extension (L3) 5 Normal Left Flexion (S2) 5 Normal Extension (L3) 5 Normal Ankle/Foot Strength Ankle and Foot Manual Muscle Testing Right Dorsiflexion (L4) 5 Normal Plantarflexion (S1) 5 Normal Left Dorsiflexion (L4) 5 Normal Plantarflexion (S1) 5 Normal Comments PF tested seated PT-OP-Q Treatments Start: 10/11/19 08:57 Freq: Status: Active Protocol: Document 11/23/19 16:58 [facility] (Rec: 11/23/19 17:49 [facility] [id number]) Therapeutic Exercises Supine Exercises 1 Supine Exercise Name pelvic realignment exercises Side bilateral Reps/Minutes 3 sec x5 Standing Exercises 7 Standing Exercise Name squat Side bilateral Reps/Minutes 15 Comments focus on hip hinge 6 Standing Exercise Name hip hinge Side bilateral Reps/Minutes 2x10 Comments yard stick on back Manual Therapy Treatment Soft Tissue Mobilization 4 Body Location QL &ES R & R along ant sup iliac crest Mobilization Type Rolling,Sustained Pressure Body Position Prone Joint Mobilizations 3 Joint hip R Direction ER FM Grade II 2 Joint sacrum Direction UPA R & caudal glide FM 1 Joint R innominate Direction ER FM & caudal glide PT-OP-R Modalities Start: 10/11/19 08:57 Freq: Status: Active Protocol: Document 11/23/19 16:58 [facility] (Rec: 11/23/19 17:49 [facility] [id number]) Hot Pack/Cold Pack Treatment Cold Pack Location LS Patient Position Hooklying PT-OP-T Assessment and Plan Start: 10/11/19 08:57 Freq: Status: Active Protocol: Document 11/23/19 16:58 [facility] (Rec: 11/23/19 17:49 [facility] [id number]) Physical Therapy Assessment Goals Four Impairment ability to get up/down from chair 5x sit<>stand=22 sec Short Term Goal (STG) Pt will be able to do 5x sit to supervisor plate forming 18 sec to show improved ability to get up/ down from chair. 11/15-still limited STG Duration 11/10/19 Skilled Nursing Goal (LTG) Pt will be able to do 5x sit to supervisor plate forming 13 sec to show improved ability to get up/ down from chair. LTG Duration 12/11/19 Three Impairment FGA Furniture Installer Goal (LTG) Pt will score >25/30 on FGA to show low risk for falls. 11/15-22/25 LTG Duration 12/11/19 Two Skilled Nursing Goal (LTG) Pt will be able to bend over to put on shoes without inc pain. 11/15-pt reports pain is very minimal LTG Duration 12/11/19 One Impairment strength Short Term Goal (STG) Pt will be indep with HEP. STG Duration achieved Furniture Installer Goal (LTG) Pt will have 4+/5 LE strength B and 3/5 LPM in order to show improves stability in order to inc confidence with doing typical activities. 11/15-improving LTG Duration 12/11/19 Assessment Summary Assessment Improved performance of hip hinge today but still difficulty isolating. He does better with maintaining neutral back with squat vs hip hinge.No pain with pelvic realignment exercies. Physical Therapy Plan Frequency and Duration Frequency of Treatment 1-2x/week Duration of Treatment 2 months Plan of Care Start Date 10/11/19 Plan of Care End Date 12/11/19 Next Visit Focus/Plan Next Note Type Treatment Note Next Visit Plan work on R hip mobility & high level dynamic balance & PNF patterns for rolling & walking & review exericses
--- NOTE | 2019-11-27 16:05 | PT.OTN ---
Current Diagnoses Spinal stenosis, lumbar region with neurogenic claudication (11/27/19) Difficulty in walking, not elsewhere classified (11/27/19) Abnormal posture (11/27/19) Weakness (11/27/19) Physical Therapy Treatment Note PT-OP-A Visit Information Start: 10/11/19 08:57 Freq: Status: Active Protocol: Document 11/27/19 15:16 [facility] (Rec: 11/27/19 16:05 [facility] [id number]) Out-Patient Physical Therapy Visit Information Visit Information Visit Type Treatment Note Visit Note 08/17 Visit Start Time 15:14 Visit Stop Time 15:59 Total Visit Minutes 45 Visit Number 13 Number of GREENHOUSE STAFF Visits 0 PT-OP-B Current Condition Start: 10/11/19 08:57 Freq: Status: Active Protocol: Document 10/11/19 08:58 [facility] (Rec: 10/11/19 10:36 [facility] [id number]) Current Condition History of Current Condition Onset Date chronic Current Complaints L>R LBP and R hip History of Current Condition Pt reprots his pain in LB and hip is worse recently and R hip bothers him especially when bending over especially to R side. Pt has been using walking sticks when he is going on walks and using a cane for around the yard, but no AD in the house. Pt notes he gets a sudden weakness sometimes in L LB where it feels like it gives out. Pt reports waking up with serious cramps in R leg and pain in R knee. Pt reports he can massage that pain away. Pt reports he notices he is a little wobbly sometimes. notes his posture is not great and notes he cannot keep up well when walking his . Reports walking too long can cause LBP. notes he has more trouble getting up and down from a chair especially in a lower chair. Prior Treatments and Tests PT which helps Treatment Goals Patient/Caregiver Goals find out which exercises to be doing, inc strength and balance PT-OP-C Subjective Start: 10/11/19 08:57 Freq: Status: Active Protocol: Document 11/27/19 15:16 [facility] (Rec: 11/27/19 16:05 [facility] [id number]) OP-PT Subjective Patient Comments Patient Comments Pt reports sometimes when turning in kitchen, he gets the pain. Pt reports some discomfort after last session for a couple days. PT-OP-E Functional Tests Start: 10/11/19 08:57 Freq: Status: Active Protocol: Document 11/16/19 08:22 [facility] (Rec: 11/16/19 09:15 [facility] [id number]) Functional Tests 30 Second Sit to Stand Test Score 6 Five Times Sit to Stand Test Score 24 Functional Gait Assessment Score 22 PT-OP-G Mobility & Gait Start: 10/11/19 08:57 Freq: Status: Active Protocol: Document 10/11/19 08:58 [facility] (Rec: 10/11/19 10:36 [facility] [id number]) OP Gait Assessment Comments Gait Comments Pt has inc fwd flex at trunk, lat leaning and primarily leg walker PT-OP-J Posture/Palpation/Skin Start: 10/11/19 08:57 Freq: Status: Active Protocol: Document 11/16/19 08:22 [facility] (Rec: 11/16/19 09:15 [facility] [id number]) Posture Evaluation [facility] Postural Classification System Lumbar Protective Mechanism Left AP 2 Lumbar Protective Mechanism Right AP 2 Lumbar Protective Mechanism Left PA 2 Lumbar Protective Mechanism Right PA 1 PT-OP-L Special Tests Start: 10/11/19 08:57 Freq: Status: Active Protocol: Document 10/11/19 08:58 [facility] (Rec: 10/11/19 10:36 [facility] [id number]) Special Tests Lumbar Spine Special Tests Slump Test Results neg B Straight Leg Raise Test Results neg B HS tightness to about 40 deg hip flex PT-OP-M Strength Start: 10/11/19 08:57 Freq: Status: Active Protocol: Document 11/16/19 08:22 [facility] (Rec: 11/16/19 09:15 [facility] [id number]) Hip Strength Hip Manual Muscle Testing Left Flexion (L2) 4 Good Extension (S1) 3+ Fair+ Abduction 4- Good- External Rotation 4 Good Internal Rotation 4+ Good+ Right Flexion (L2) 4- Good- Extension (S1) 3+ Fair+ Abduction 3+ Fair+ External Rotation 3+ Fair+ Internal Rotation 3+ Fair+ Knee Strength Knee Manual Muscle Testing Right Flexion (S2) 5 Normal Extension (L3) 5 Normal Left Flexion (S2) 5 Normal Extension (L3) 5 Normal Ankle/Foot Strength Ankle and Foot Manual Muscle Testing Right Dorsiflexion (L4) 5 Normal Plantarflexion (S1) 5 Normal Left Dorsiflexion (L4) 5 Normal Plantarflexion (S1) 5 Normal Comments PF tested seated PT-OP-Q Treatments Start: 10/11/19 08:57 Freq: Status: Active Protocol: Document 11/27/19 15:16 [facility] (Rec: 11/27/19 16:05 [facility] [id number]) Cardio Equipment Recumbent Bicycle Duration (Minutes) 6 Resistance 11 Seat Position 12 Gym Equipment Shuttle Balance 1 Details red clips Reps/Duration while hitting balloon Comments fwd & side: WBOS & NBOS fwd: staggered stance B Therapeutic Exercises Standing Exercises 7 Standing Exercise Name squat Side bilateral Reps/Minutes 15 Comments focus on hip hinge 6 Standing Exercise Name hip hinge Side bilateral Reps/Minutes 10 Comments yard stick on back 5 Standing Exercise Name wall posture w/B shoulder ext Side bilateral Reps/Minutes 1 min Manual Therapy Treatment Soft Tissue Mobilization 4 Body Location QL &ES R & R along ant sup iliac crest Mobilization Type Rolling,Sustained Pressure Body Position Prone Joint Mobilizations 2 Joint sacrum Direction UPA R & caudal glide FM 1 Joint L4 & 5 Direction UPA R FM w/ knee flex Neuro Re-Education Treatment Balance Activities 5 Details hurdles fwd Reps/Duration 2x w/o tpad and 2x w/ 2blue tpads PT-OP-R Modalities Start: 10/11/19 08:57 Freq: Status: Active Protocol: Document 11/23/19 16:58 [facility] (Rec: 11/23/19 17:49 [facility] [id number]) Hot Pack/Cold Pack Treatment Cold Pack Location LS Patient Position Hooklying PT-OP-T Assessment and Plan Start: 10/11/19 08:57 Freq: Status: Active Protocol: Document 11/27/19 15:16 [facility] (Rec: 11/27/19 16:05 [facility] [id number]) Physical Therapy Assessment Goals Four Impairment ability to get up/down from chair 5x sit<>stand=22 sec Short Term Goal (STG) Pt will be able to do 5x sit to kineseologist 18 sec to show improved ability to get up/ down from chair. 11/15-still limited STG Duration 11/10/19 Assisted Goal (LTG) Pt will be able to do 5x sit to kineseologist 13 sec to show improved ability to get up/ down from chair. LTG Duration 12/11/19 Three Impairment FGA Label Remover Goal (LTG) Pt will score >25/30 on FGA to show low risk for falls. 11/15-22/ LTG Duration 12/11/19 Two Assisted Goal (LTG) Pt will be able to bend over to put on shoes without inc pain. 11/15-pt reports pain is very minimal LTG Duration 12/11/19 One Impairment strength Short Term Goal (STG) Pt will be indep with HEP. STG Duration achieved Label Remover Goal (LTG) Pt will have 4+/5 LE strength B and 3/5 LPM in order to show improves stability in order to inc confidence with doing typical activities. 11/15-improving LTG Duration 12/11/19 Assessment Summary Assessment Pt is imrpoving with balance on balance board but does occasionally need to use rails ot catch balance. Noteable LOB w/tpads over hurdles. Improved knee flex quad stretch with dec back pain after manual Physical Therapy Plan Frequency and Duration Frequency of Treatment 1-2x/week Duration of Treatment 2 months Plan of Care Start Date 10/11/19 Plan of Care End Date 12/11/19 Next Visit Focus/Plan Next Note Type Treatment Note Next Visit Plan work on R hip mobility & high level dynamic balance & PNF patterns for rolling & walking & review exericses
--- NOTE | 2019-11-29 11:16 | PT.OTN ---
Current Diagnoses Spinal stenosis, lumbar region with neurogenic claudication (11/29/19) Difficulty in walking, not elsewhere classified (11/29/19) Abnormal posture (11/29/19) Weakness (11/29/19) Physical Therapy Treatment Note PT-OP-A Visit Information Start: 10/11/19 08:57 Freq: Status: Active Protocol: Document 11/29/19 10:37 [facility] (Rec: 11/29/19 11:16 [facility] [id number]) Out-Patient Physical Therapy Visit Information Visit Information Visit Type Treatment Note Visit Note 09/16 Visit Start Time 10:32 Visit Stop Time 11:26 Total Visit Minutes 49 Visit Number 14 Number of SENIOR MEDICAL DIRECTOR Visits 0 PT-OP-B Current Condition Start: 10/11/19 08:57 Freq: Status: Active Protocol: Document 10/11/19 08:58 [facility] (Rec: 10/11/19 10:36 [facility] [id number]) Current Condition History of Current Condition Onset Date chronic Current Complaints L>R LBP and R hip History of Current Condition Pt reprots his pain in LB and hip is worse recently and R hip bothers him especially when bending over especially to R side. Pt has been using walking sticks when he is going on walks and using a cane for around the yard, but no AD in the house. Pt notes he gets a sudden weakness sometimes in L LB where it feels like it gives out. Pt reports waking up with serious cramps in R leg and pain in R knee. Pt reports he can massage that pain away. Pt reports he notices he is a little wobbly sometimes. notes his posture is not great and notes he cannot keep up well when walking his . Reports walking too long can cause LBP. notes he has more trouble getting up and down from a chair especially in a lower chair. Prior Treatments and Tests PT which helps Treatment Goals Patient/Caregiver Goals find out which exercises to be doing, inc strength and balance PT-OP-C Subjective Start: 10/11/19 08:57 Freq: Status: Active Protocol: Document 11/29/19 10:37 [facility] (Rec: 11/29/19 11:16 [facility] [id number]) OP-PT Subjective Patient Comments Patient Comments Pt repots having to take ibuprofen last night d/t pain. Pt erports he thinks he tweaked his R ankle when walking yesterday. PT-OP-E Functional Tests Start: 10/11/19 08:57 Freq: Status: Active Protocol: Document 11/16/19 08:22 [facility] (Rec: 11/16/19 09:15 [facility] [id number]) Functional Tests 30 Second Sit to Stand Test Score 6 Five Times Sit to Stand Test Score 24 Functional Gait Assessment Score 22 PT-OP-G Mobility & Gait Start: 10/11/19 08:57 Freq: Status: Active Protocol: Document 10/11/19 08:58 [facility] (Rec: 10/11/19 10:36 [facility] [id number]) OP Gait Assessment Comments Gait Comments Pt has inc fwd flex at trunk, lat leaning and primarily leg walker PT-OP-J Posture/Palpation/Skin Start: 10/11/19 08:57 Freq: Status: Active Protocol: Document 11/16/19 08:22 [facility] (Rec: 11/16/19 09:15 [facility] [id number]) Posture Evaluation Augusto Postural Classification System Lumbar Protective Mechanism Left AP 2 Lumbar Protective Mechanism Right AP 2 Lumbar Protective Mechanism Left PA 2 Lumbar Protective Mechanism Right PA 1 PT-OP-L Special Tests Start: 10/11/19 08:57 Freq: Status: Active Protocol: Document 10/11/19 08:58 [facility] (Rec: 10/11/19 10:36 [facility] [id number]) Special Tests Lumbar Spine Special Tests Slump Test Results neg B Straight Leg Raise Test Results neg B HS tightness to about 40 deg hip flex PT-OP-M Strength Start: 10/11/19 08:57 Freq: Status: Active Protocol: Document 11/16/19 08:22 [facility] (Rec: 11/16/19 09:15 [facility] [id number]) Hip Strength Hip Manual Muscle Testing Left Flexion (L2) 4 Good Extension (S1) 3+ Fair+ Abduction 4- Good- External Rotation 4 Good Internal Rotation 4+ Good+ Right Flexion (L2) 4- Good- Extension (S1) 3+ Fair+ Abduction 3+ Fair+ External Rotation 3+ Fair+ Internal Rotation 3+ Fair+ Knee Strength Knee Manual Muscle Testing Right Flexion (S2) 5 Normal Extension (L3) 5 Normal Left Flexion (S2) 5 Normal Extension (L3) 5 Normal Ankle/Foot Strength Ankle and Foot Manual Muscle Testing Right Dorsiflexion (L4) 5 Normal Plantarflexion (S1) 5 Normal Left Dorsiflexion (L4) 5 Normal Plantarflexion (S1) 5 Normal Comments PF tested seated PT-OP-Q Treatments Start: 10/11/19 08:57 Freq: Status: Active Protocol: Document 11/29/19 10:37 [facility] (Rec: 11/29/19 11:16 [facility] [id number]) Cardio Equipment Recumbent Bicycle Duration (Minutes) 6 Resistance 11 Seat Position 12 Gym Equipment Shuttle Balance 1 Details red clips Reps/Duration while hitting balloon Comments fwd & side: WBOS & NBOS fwd: staggered stance B Therapeutic Exercises Supine Exercises stretch Supine Exercise Name mau test Side bilateral Reps/Minutes 30 sec 2 Supine Exercise Name HS stretch Side bilateral Reps/Minutes 30 sec 1 Supine Exercise Name figure 4 stretch Side bilateral Reps/Minutes 30 sec Standing Exercises 5 Standing Exercise Name wall posture w/B shoulder ext Side bilateral Reps/Minutes 1 min Manual Therapy Treatment Soft Tissue Mobilization 4 Body Location QL &ES R & R along ant sup iliac crest Mobilization Type Rolling,Sustained Pressure Body Position Prone Neuro Re-Education Treatment Balance Activities 5 Details hurdles fwd Reps/Duration 4x w/ 2blue tpads 4 Details bosu Comments 5x step ups with 2 sec balance B Other Activities 1 Details mass flex PNF Comments 1. rhythmic initiation 2 sustained holds 3. combo of isotonics PT-OP-R Modalities Start: 10/11/19 08:57 Freq: Status: Active Protocol: Document 11/29/19 10:37 [facility] (Rec: 11/29/19 11:16 [facility] [id number]) Hot Pack/Cold Pack Treatment Cold Pack Location LS Patient Position Hooklying PT-OP-T Assessment and Plan Start: 10/11/19 08:57 Freq: Status: Active Protocol: Document 11/29/19 10:37 [facility] (Rec: 11/29/19 11:16 [facility] [id number]) Physical Therapy Assessment Goals Four Impairment ability to get up/down from chair 5x sit<>stand=22 sec Short Term Goal (STG) Pt will be able to do 5x sit to systems administrator 18 sec to show improved ability to get up/ down from chair. 11/15-still limited STG Duration 11/10/19 Core Mounter Goal (LTG) Pt will be able to do 5x sit to systems administrator 13 sec to show improved ability to get up/ down from chair. LTG Duration 12/11/19 Three Impairment FGA Core Mounter Goal (LTG) Pt will score >25/30 on FGA to show low risk for falls. 11/15-22/25 LTG Duration 12/11/19 Two Penitentiary Goal (LTG) Pt will be able to bend over to put on shoes without inc pain. 11/15-pt reports pain is very minimal LTG Duration 12/11/19 One Impairment strength Short Term Goal (STG) Pt will be indep with HEP. STG Duration achieved Core Mounter Goal (LTG) Pt will have 4+/5 LE strength B and 3/5 LPM in order to show improves stability in order to inc confidence with doing typical activities. 11/15-improving LTG Duration 12/11/19 Assessment Summary Assessment Improved balance noted over hurdles today and on balance board even with hitting balloon. He had difficulty with bosus step ups though. Physical Therapy Plan Frequency and Duration Frequency of Treatment 1-2x/week Duration of Treatment 2 months Plan of Care Start Date 10/11/19 Plan of Care End Date 12/11/19 Next Visit Focus/Plan Next Note Type Treatment Note Next Visit Plan work on R hip mobility & high level dynamic balance & PNF patterns for rolling & walking & review exericses
--- NOTE | 2019-12-04 17:49 | PT.OTN ---
Current Diagnoses Spinal stenosis, lumbar region with neurogenic claudication (12/04/19) Difficulty in walking, not elsewhere classified (12/04/19) Abnormal posture (12/04/19) Weakness (12/04/19) Physical Therapy Treatment Note PT-OP-A Visit Information Start: 10/11/19 08:57 Freq: Status: Active Protocol: Document 12/04/19 15:25 [facility] (Rec: 12/04/19 16:51 [facility] [id number]) Out-Patient Physical Therapy Visit Information Visit Information Visit Type Treatment Note Visit Note 10/17 Visit Start Time 15:18 Visit Stop Time 16:10 Total Visit Minutes 52 Visit Number 15 Number of COMPETENCY EVALUATED NURSE AIDE Visits 0 PT-OP-B Current Condition Start: 10/11/19 08:57 Freq: Status: Active Protocol: Document 10/11/19 08:58 [facility] (Rec: 10/11/19 10:36 [facility] [id number]) Current Condition History of Current Condition Onset Date chronic Current Complaints L>R LBP and R hip History of Current Condition Pt reprots his pain in LB and hip is worse recently and R hip bothers him especially when bending over especially to R side. Pt has been using walking sticks when he is going on walks and using a cane for around the yard, but no AD in the house. Pt notes he gets a sudden weakness sometimes in L LB where it feels like it gives out. Pt reports waking up with serious cramps in R leg and pain in R knee. Pt reports he can massage that pain away. Pt reports he notices he is a little wobbly sometimes. notes his posture is not great and notes he cannot keep up well when walking his . Reports walking too long can cause LBP. notes he has more trouble getting up and down from a chair especially in a lower chair. Prior Treatments and Tests PT which helps Treatment Goals Patient/Caregiver Goals find out which exercises to be doing, inc strength and balance PT-OP-C Subjective Start: 10/11/19 08:57 Freq: Status: Active Protocol: Document 12/04/19 15:25 [facility] (Rec: 12/04/19 16:51 [facility] [id number]) OP-PT Subjective Patient Comments Patient Comments Pt reports he had a spasm in his back wehn walking to the mailbox PT-OP-E Functional Tests Start: 10/11/19 08:57 Freq: Status: Active Protocol: Document 11/16/19 08:22 [facility] (Rec: 11/16/19 09:15 [facility] [id number]) Functional Tests 30 Second Sit to Stand Test Score 6 Five Times Sit to Stand Test Score 24 Functional Gait Assessment Score 22 PT-OP-G Mobility & Gait Start: 10/11/19 08:57 Freq: Status: Active Protocol: Document 10/11/19 08:58 [facility] (Rec: 10/11/19 10:36 [facility] [id number]) OP Gait Assessment Comments Gait Comments Pt has inc fwd flex at trunk, lat leaning and primarily leg walker PT-OP-J Posture/Palpation/Skin Start: 10/11/19 08:57 Freq: Status: Active Protocol: Document 11/16/19 08:22 [facility] (Rec: 11/16/19 09:15 [facility] [id number]) Posture Evaluation Augusto Postural Classification System Lumbar Protective Mechanism Left AP 2 Lumbar Protective Mechanism Right AP 2 Lumbar Protective Mechanism Left PA 2 Lumbar Protective Mechanism Right PA 1 PT-OP-L Special Tests Start: 10/11/19 08:57 Freq: Status: Active Protocol: Document 10/11/19 08:58 [facility] (Rec: 10/11/19 10:36 [facility] [id number]) Special Tests Lumbar Spine Special Tests Slump Test Results neg B Straight Leg Raise Test Results neg B HS tightness to about 40 deg hip flex PT-OP-M Strength Start: 10/11/19 08:57 Freq: Status: Active Protocol: Document 11/16/19 08:22 [facility] (Rec: 11/16/19 09:15 [facility] [id number]) Hip Strength Hip Manual Muscle Testing Left Flexion (L2) 4 Good Extension (S1) 3+ Fair+ Abduction 4- Good- External Rotation 4 Good Internal Rotation 4+ Good+ Right Flexion (L2) 4- Good- Extension (S1) 3+ Fair+ Abduction 3+ Fair+ External Rotation 3+ Fair+ Internal Rotation 3+ Fair+ Knee Strength Knee Manual Muscle Testing Right Flexion (S2) 5 Normal Extension (L3) 5 Normal Left Flexion (S2) 5 Normal Extension (L3) 5 Normal Ankle/Foot Strength Ankle and Foot Manual Muscle Testing Right Dorsiflexion (L4) 5 Normal Plantarflexion (S1) 5 Normal Left Dorsiflexion (L4) 5 Normal Plantarflexion (S1) 5 Normal Comments PF tested seated PT-OP-Q Treatments Start: 10/11/19 08:57 Freq: Status: Active Protocol: Document 12/04/19 15:25 [facility] (Rec: 12/04/19 16:51 [facility] [id number]) Cardio Equipment Recumbent Bicycle Duration (Minutes) 6 Resistance 11 Seat Position 12 Gym Equipment Sport Cord back Cord/Resistance green Reps/Duration 10 fwd Cord/Resistance green Reps/Duration 10 Therapeutic Exercises Standing Exercises 7 Standing Exercise Name gait at wall w/feet flat Gait Training Gait Activity wt acceptance Description SLS w/o lat shift wt shifts Description fwd in mirror Manual Therapy Treatment Soft Tissue Mobilization 4 Body Location QL &ES R & R along ant sup iliac crest Mobilization Type Rolling,Sustained Pressure Body Position Prone 3 Body Location iliacus R Mobilization Type Sustained Pressure PT-OP-R Modalities Start: 10/11/19 08:57 Freq: Status: Active Protocol: Document 12/04/19 15:25 [facility] (Rec: 12/04/19 16:51 [facility] [id number]) Hot Pack/Cold Pack Treatment Cold Pack Location LS Patient Position Hooklying PT-OP-T Assessment and Plan Start: 10/11/19 08:57 Freq: Status: Active Protocol: Document 12/04/19 15:25 [facility] (Rec: 12/04/19 16:51 [facility] [id number]) Physical Therapy Assessment Goals Four Impairment ability to get up/down from chair 5x sit<>stand=22 sec Short Term Goal (STG) Pt will be able to do 5x sit to program engineer 18 sec to show improved ability to get up/ down from chair. 11/15-still limited STG Duration 11/10/19 Material Flow Engineer Goal (LTG) Pt will be able to do 5x sit to program engineer 13 sec to show improved ability to get up/ down from chair. LTG Duration 12/11/19 Three Impairment FGA Material Flow Engineer Goal (LTG) Pt will score >25/30 on FGA to show low risk for falls. 11/15- LTG Duration 12/11/19 Two Material Flow Engineer Goal (LTG) Pt will be able to bend over to put on shoes without inc pain. 11/15-pt reports pain is very minimal LTG Duration 12/11/19 One Impairment strength Short Term Goal (STG) Pt will be indep with HEP. STG Duration achieved Chcf Goal (LTG) Pt will have 4+/5 LE strength B and 3/5 LPM in order to show improves stability in order to inc confidence with doing typical activities. 11/15-improving LTG Duration 12/11/19 Assessment Summary Assessment Pt required significant cueingt hroughout all gait activities. He has tendency to go into trendelenburg position and had difficulty with SLS. Physical Therapy Plan Frequency and Duration Frequency of Treatment 1-2x/week Duration of Treatment 2 months Plan of Care Start Date 10/11/19 Plan of Care End Date 12/11/19 Next Visit Focus/Plan Next Note Type Treatment Note Next Visit Plan work on R hip mobility & high level dynamic balance & PNF patterns for rolling & walking & review exericses
--- NOTE | 2019-12-07 17:56 | PT.OTN ---
Current Diagnoses Spinal stenosis, lumbar region with neurogenic claudication (12/07/19) Difficulty in walking, not elsewhere classified (12/07/19) Abnormal posture (12/07/19) Weakness (12/07/19) Physical Therapy Treatment Note PT-OP-A Visit Information Start: 10/11/19 08:57 Freq: Status: Active Protocol: Document 12/07/19 17:47 [facility] (Rec: 12/07/19 17:55 [facility] [id number]) Out-Patient Physical Therapy Visit Information Visit Information Visit Type Treatment Note Visit Note 11/16 Visit Start Time 08:15 Visit Stop Time 09:10 Total Visit Minutes 55 Visit Number 16 Number of WATER TREATMENT TECHNICIAN Visits 0 PT-OP-B Current Condition Start: 10/11/19 08:57 Freq: Status: Active Protocol: Document 10/11/19 08:58 [facility] (Rec: 10/11/19 10:36 [facility] [id number]) Current Condition History of Current Condition Onset Date chronic Current Complaints L>R LBP and R hip History of Current Condition Pt reprots his pain in LB and hip is worse recently and R hip bothers him especially when bending over especially to R side. Pt has been using walking sticks when he is going on walks and using a cane for around the yard, but no AD in the house. Pt notes he gets a sudden weakness sometimes in L LB where it feels like it gives out. Pt reports waking up with serious cramps in R leg and pain in R knee. Pt reports he can massage that pain away. Pt reports he notices he is a little wobbly sometimes. notes his posture is not great and notes he cannot keep up well when walking his . Reports walking too long can cause LBP. notes he has more trouble getting up and down from a chair especially in a lower chair. Prior Treatments and Tests PT which helps Treatment Goals Patient/Caregiver Goals find out which exercises to be doing, inc strength and balance PT-OP-C Subjective Start: 10/11/19 08:57 Freq: Status: Active Protocol: Document 12/07/19 17:47 [facility] (Rec: 12/07/19 17:55 [facility] [id number]) OP-PT Subjective Patient Comments Patient Comments Pt reports he is having less instances of of spasms recently. present during session. PT-OP-E Functional Tests Start: 10/11/19 08:57 Freq: Status: Active Protocol: Document 11/16/19 08:22 [facility] (Rec: 11/16/19 09:15 [facility] [id number]) Functional Tests 30 Second Sit to Stand Test Score 6 Five Times Sit to Stand Test Score 24 Functional Gait Assessment Score 22 PT-OP-G Mobility & Gait Start: 10/11/19 08:57 Freq: Status: Active Protocol: Document 10/11/19 08:58 [facility] (Rec: 10/11/19 10:36 [facility] [id number]) OP Gait Assessment Comments Gait Comments Pt has inc fwd flex at trunk, lat leaning and primarily leg walker PT-OP-J Posture/Palpation/Skin Start: 10/11/19 08:57 Freq: Status: Active Protocol: Document 11/16/19 08:22 [facility] (Rec: 11/16/19 09:15 [facility] [id number]) Posture Evaluation Augusto Postural Classification System Lumbar Protective Mechanism Left AP 2 Lumbar Protective Mechanism Right AP 2 Lumbar Protective Mechanism Left PA 2 Lumbar Protective Mechanism Right PA 1 PT-OP-L Special Tests Start: 10/11/19 08:57 Freq: Status: Active Protocol: Document 10/11/19 08:58 [facility] (Rec: 10/11/19 10:36 [facility] [id number]) Special Tests Lumbar Spine Special Tests Slump Test Results neg B Straight Leg Raise Test Results neg B HS tightness to about 40 deg hip flex PT-OP-M Strength Start: 10/11/19 08:57 Freq: Status: Active Protocol: Document 11/16/19 08:22 [facility] (Rec: 11/16/19 09:15 [facility] [id number]) Hip Strength Hip Manual Muscle Testing Left Flexion (L2) 4 Good Extension (S1) 3+ Fair+ Abduction 4- Good- External Rotation 4 Good Internal Rotation 4+ Good+ Right Flexion (L2) 4- Good- Extension (S1) 3+ Fair+ Abduction 3+ Fair+ External Rotation 3+ Fair+ Internal Rotation 3+ Fair+ Knee Strength Knee Manual Muscle Testing Right Flexion (S2) 5 Normal Extension (L3) 5 Normal Left Flexion (S2) 5 Normal Extension (L3) 5 Normal Ankle/Foot Strength Ankle and Foot Manual Muscle Testing Right Dorsiflexion (L4) 5 Normal Plantarflexion (S1) 5 Normal Left Dorsiflexion (L4) 5 Normal Plantarflexion (S1) 5 Normal Comments PF tested seated PT-OP-Q Treatments Start: 10/11/19 08:57 Freq: Status: Active Protocol: Document 12/07/19 17:47 [facility] (Rec: 12/07/19 17:55 [facility] [id number]) Cardio Equipment Recumbent Bicycle Duration (Minutes) 6 Resistance 11 Seat Position 12 Therapeutic Exercises Prone Exercises ER Side bilateral Reps/Minutes 10x2 Comments focus on max cueing for keeping hip down Standing Exercises 6 Standing Exercise Name squat Side bilateral Reps/Minutes 15x2 Comments focus on knees not over toes & back straight 1 Standing Exercise Name sit<>stand Reps/Minutes 5 Comments no hands focus on control Manual Therapy Treatment Soft Tissue Mobilization 4 Body Location QL &ES R Mobilization Type Rolling,Sustained Pressure Body Position Prone Joint Mobilizations 3 Joint sacrum Direction caudal FM Self-Care/Home Management Treatment Education Other Education discussion to talk to re: other pain management options if PT does not appear to be helping with pain, discussion of progress with strength & balance. Edu on importance of wearing shoes in house to avoid foot pain or slipping in socks, edu to make sure he is payig attention to lifting toe and should not hear scuffing during walking PT-OP-R Modalities Start: 10/11/19 08:57 Freq: Status: Active Protocol: Document 12/07/19 17:47 [facility] (Rec: 12/07/19 17:55 [facility] [id number]) Hot Pack/Cold Pack Treatment Cold Pack Location LS Patient Position Hooklying PT-OP-T Assessment and Plan Start: 10/11/19 08:57 Freq: Status: Active Protocol: Document 12/07/19 17:47 [facility] (Rec: 12/07/19 17:55 [facility] [id number]) Physical Therapy Assessment Goals Four Impairment ability to get up/down from chair 5x sit<>stand=22 sec Short Term Goal (STG) Pt will be able to do 5x sit to pewter finisher 18 sec to show improved ability to get up/ down from chair. 11/15-still limited STG Duration 11/10/19 Senior Care Goal (LTG) Pt will be able to do 5x sit to pewter finisher 13 sec to show improved ability to get up/ down from chair. LTG Duration 12/11/19 Three Impairment FGA Resource Analyst Goal (LTG) Pt will score >25/30 on FGA to show low risk for falls. 11/15-22/25 LTG Duration 12/11/19 Two Resource Analyst Goal (LTG) Pt will be able to bend over to put on shoes without inc pain. 11/15-pt reports pain is very minimal LTG Duration 12/11/19 One Impairment strength Short Term Goal (STG) Pt will be indep with HEP. STG Duration achieved Senior Care Goal (LTG) Pt will have 4+/5 LE strength B and 3/5 LPM in order to show improves stability in order to inc confidence with doing typical activities. 11/15-improving LTG Duration 12/11/19 Assessment Summary Assessment Pt and were given significant educaiton today and plan to re-asess pt progress next visit. Pt is having dec instances of spasms which shows improvement. Cueing still required for squats and sginficiantly needed for hip ER Physical Therapy Plan Frequency and Duration Frequency of Treatment 1-2x/week Duration of Treatment 2 months Plan of Care Start Date 10/11/19 Plan of Care End Date 12/11/19 Next Visit Focus/Plan Next Note Type Progress Note Next Visit Plan New POC reassess progress
--- NOTE | 2019-12-13 14:33 | PT.OTN ---
Current Diagnoses Spinal stenosis, lumbar region with neurogenic claudication (12/13/19) Difficulty in walking, not elsewhere classified (12/13/19) Abnormal posture (12/13/19) Weakness (12/13/19) Physical Therapy Treatment Note PT-OP-A Visit Information Start: 10/11/19 08:57 Freq: Status: Active Protocol: Document 12/13/19 13:52 [facility] (Rec: 12/13/19 14:33 [facility] [id number]) Out-Patient Physical Therapy Visit Information Visit Information Visit Type Progress Note Visit Note 05/19 Visit Start Time 13:48 Visit Stop Time 14:38 Total Visit Minutes 50 Visit Number 17 Number of PROJECTION CAMERA OPERATOR Visits 0 PT-OP-B Current Condition Start: 10/11/19 08:57 Freq: Status: Active Protocol: Document 10/11/19 08:58 [facility] (Rec: 10/11/19 10:36 [facility] [id number]) Current Condition History of Current Condition Onset Date chronic Current Complaints L>R LBP and R hip History of Current Condition Pt reprots his pain in LB and hip is worse recently and R hip bothers him especially when bending over especially to R side. Pt has been using walking sticks when he is going on walks and using a cane for around the yard, but no AD in the house. Pt notes he gets a sudden weakness sometimes in L LB where it feels like it gives out. Pt reports waking up with serious cramps in R leg and pain in R knee. Pt reports he can massage that pain away. Pt reports he notices he is a little wobbly sometimes. notes his posture is not great and notes he cannot keep up well when walking his . Reports walking too long can cause LBP. notes he has more trouble getting up and down from a chair especially in a lower chair. Prior Treatments and Tests PT which helps Treatment Goals Patient/Caregiver Goals find out which exercises to be doing, inc strength and balance PT-OP-C Subjective Start: 10/11/19 08:57 Freq: Status: Active Protocol: Document 12/13/19 13:52 [facility] (Rec: 12/13/19 14:33 [facility] [id number]) OP-PT Subjective Patient Comments Patient Comments Pt reports he woke up with soreness in his back today and has been sore for the day today. Unsure why. Did some floor exercises yesterday but not too much d/t lots of appts recently. Contacted pain MD re: pain and he is going to do a follow up MD online PT-OP-E Functional Tests Start: 10/11/19 08:57 Freq: Status: Active Protocol: Document 12/13/19 13:52 [facility] (Rec: 12/13/19 14:33 [facility] [id number]) Functional Tests Five Times Sit to Stand Test Score 18sec Functional Gait Assessment Score 24 PT-OP-G Mobility & Gait Start: 10/11/19 08:57 Freq: Status: Active Protocol: Document 10/11/19 08:58 [facility] (Rec: 10/11/19 10:36 [facility] [id number]) OP Gait Assessment Comments Gait Comments Pt has inc fwd flex at trunk, lat leaning and primarily leg walker PT-OP-J Posture/Palpation/Skin Start: 10/11/19 08:57 Freq: Status: Active Protocol: Document 12/13/19 13:52 [facility] (Rec: 12/13/19 14:33 [facility] [id number]) Posture Evaluation [facility] Postural Classification System Lumbar Protective Mechanism Left AP 3 Lumbar Protective Mechanism Right AP 2 Lumbar Protective Mechanism Left PA 2 Lumbar Protective Mechanism Right PA 2 PT-OP-L Special Tests Start: 10/11/19 08:57 Freq: Status: Active Protocol: Document 10/11/19 08:58 [facility] (Rec: 10/11/19 10:36 [facility] [id number]) Special Tests Lumbar Spine Special Tests Slump Test Results neg B Straight Leg Raise Test Results neg B HS tightness to about 40 deg hip flex PT-OP-M Strength Start: 10/11/19 08:57 Freq: Status: Active Protocol: Document 12/13/19 13:52 [facility] (Rec: 12/13/19 14:33 [facility] [id number]) Hip Strength Hip Manual Muscle Testing Left Flexion (L2) 4+ Good+ Extension (S1) 4- Good- Abduction 4 Good External Rotation 4 Good Internal Rotation 4+ Good+ Right Flexion (L2) 4- Good- Extension (S1) 4- Good- Abduction 4- Good- External Rotation 3+ Fair+ Internal Rotation 4 Good Comments very limited in ER ROM Knee Strength Knee Manual Muscle Testing Right Flexion (S2) 5 Normal Extension (L3) 5 Normal Left Flexion (S2) 5 Normal Extension (L3) 5 Normal Ankle/Foot Strength Ankle and Foot Manual Muscle Testing Right Dorsiflexion (L4) 5 Normal Plantarflexion (S1) 5 Normal Left Dorsiflexion (L4) 5 Normal Plantarflexion (S1) 5 Normal Comments PF tested seated PT-OP-Q Treatments Start: 10/11/19 08:57 Freq: Status: Active Protocol: Document 12/13/19 13:52 [facility] (Rec: 12/13/19 14:33 [facility] [id number]) Cardio Equipment Recumbent Bicycle Duration (Minutes) 7 Resistance 11 Seat Position 12 PT-OP-R Modalities Start: 10/11/19 08:57 Freq: Status: Active Protocol: Document 12/13/19 13:52 [facility] (Rec: 12/13/19 14:33 [facility] [id number]) Hot Pack/Cold Pack Treatment Cold Pack Location LS Patient Position Hooklying PT-OP-T Assessment and Plan Start: 10/11/19 08:57 Freq: Status: Active Protocol: Document 12/13/19 13:52 [facility] (Rec: 12/13/19 14:33 [facility] [id number]) Physical Therapy Assessment Goals Four Impairment ability to get up/down from chair 5x sit<>stand=22 sec Short Term Goal (STG) Pt will be able to do 5x sit to freedom of information officer 18 sec to show improved ability to get up/ down from chair. 11/15-still limited STG Duration achieved to 18 sec Loom Fixer Supervisor Goal (LTG) Pt will be able to do 5x sit to freedom of information officer 13 sec to show improved ability to get up/ down from chair. LTG Duration 02/12/20 Three Impairment FGA Snf Goal (LTG) Pt will score >25/30 on FGA to show low risk for falls. 11/15-22/25 8/-24/30 LTG Duration 02/12/20 Two Loom Fixer Supervisor Goal (LTG) Pt will be able to bend over to put on shoes without inc pain. 11/15-pt reports pain is very minimal LTG Duration achieved One Impairment strength Short Term Goal (STG) Pt will be indep with HEP. STG Duration achieved Snf Goal (LTG) Pt will have 4+/5 LE strength B and 3/5 LPM in order to show improves stability in order to inc confidence with doing typical activities. 11/15-improving 12/12-increasing LTG Duration 02/12/20 Assessment Summary Assessment Pt is making good progress with functional ability, strength of LEs,& core and with balance. He is reporting feeling stronger and overall more balanced also. Physical Therapy Plan Frequency and Duration Frequency of Treatment 1-2x/week Duration of Treatment 2 months Plan of Care Start Date 12/13/19 Plan of Care End Date 02/12/20 Therapeutic Interventions Therapeutic Interventions Aquatic Therapy,Balance Training,Gait Training,Home Exercise Program,Joint Mobilizations,Manual Therapy, Neuromuscular Re-education, Patient/Caregiver Education, Self-Care/Home Management,Soft Tissue Mobilization,Taping, Therapeutic Activities, Therapeutic Exercises Modalities Cold Pack/Ice Massage,Electric Stimulation,Hot Packs, Ultrasound Next Visit Focus/Plan Next Note Type Progress Note Next Visit Plan work on R hip mobility & high level dynamic balance & PNF patterns for rolling & walking & review exericses
--- NOTE | 2019-12-13 14:33 | PT.OPPOC ---
Physical, Occupational & Speech Therapy At [facility] Current Diagnoses Spinal stenosis, lumbar region with neurogenic claudication (12/13/19) Difficulty in walking, not elsewhere classified (12/13/19) Abnormal posture (12/13/19) Weakness (12/13/19) Visit Care Team Role Provider Type To Vallejo MD Attending Provider Physician Family Provider Primary Care Provider Referring Provider Specialty: Internal Medicine Address: [address] [place] [address], [address] Email: [email or web address] Plan Of Care PT-OP-T Assessment and Plan Start: 10/11/19 08:57 Freq: Status: Active Protocol: Document 12/13/19 13:52 [facility] (Rec: 12/13/19 14:33 [facility] [id number]) Physical Therapy Assessment Goals Four Impairment ability to get up/down from chair 5x sit<>stand=22 sec Short Term Goal (STG) Pt will be able to do 5x sit to project manager interior design 18 sec to show improved ability to get up/ down from chair. 11/15-still limited STG Duration achieved to 18 sec [facility] Goal (LTG) Pt will be able to do 5x sit to project manager interior design 13 sec to show improved ability to get up/ down from chair. LTG Duration 02/12/20 Three Impairment FGA [facility] Goal (LTG) Pt will score >25/30 on FGA to show low risk for falls. 11/15-22/25 12/12-24/30 LTG Duration 02/12/20 Two Genetics Physician Goal (LTG) Pt will be able to bend over to put on shoes without inc pain. 11/15-pt reports pain is very minimal LTG Duration achieved One Impairment strength Short Term Goal (STG) Pt will be indep with HEP. STG Duration achieved [facility] Goal (LTG) Pt will have 4+/5 LE strength B and 3/5 LPM in order to show improves stability in order to inc confidence with doing typical activities. 11/15-improving 12/12-increasing LTG Duration 02/12/20 Assessment Summary Assessment Pt is making good progress with functional ability, strength of LEs,& core and with balance. He is reporting feeling stronger and overall more balanced also. Physical Therapy Plan Frequency and Duration Frequency of Treatment 1-2x/week Duration of Treatment 2 months Plan of Care Start Date 12/13/19 Plan of Care End Date 02/12/20 Therapeutic Interventions Therapeutic Interventions Aquatic Therapy,Balance Training,Gait Training,Home Exercise Program,Joint Mobilizations,Manual Therapy, Neuromuscular Re-education, Patient/Caregiver Education, Self-Care/Home Management,Soft Tissue Mobilization,Taping, Therapeutic Activities, Therapeutic Exercises Modalities Cold Pack/Ice Massage,Electric Stimulation,Hot Packs, Ultrasound Next Visit Focus/Plan Next Note Type Progress Note Next Visit Plan work on R hip mobility & high level dynamic balance & PNF patterns for rolling & walking & review exericses Plan of Care Dates Plan of Care Start Date 12/13/19 Plan of Care End Date 02/12/20 Electronically Signed by: Reina Rider, PT 12/13/19 [id number] Please Sign and Return: I have reviewed this Plan of Care and certify that the skilled therapy services above are required to meet the patient?s needs. Physician Signature Date Printed Name and Credentials Clinical Instructor Signature Printed Name and Credentials
--- NOTE | 2019-12-20 14:33 | PT.OTN ---
Current Diagnoses Spinal stenosis, lumbar region with neurogenic claudication (12/20/19) Difficulty in walking, not elsewhere classified (12/20/19) Abnormal posture (12/20/19) Weakness (12/20/19) Physical Therapy Treatment Note PT-OP-A Visit Information Start: 10/11/19 08:57 Freq: Status: Active Protocol: Document 12/20/19 13:49 [facility] (Rec: 12/20/19 14:33 [facility] [id number]) Out-Patient Physical Therapy Visit Information Visit Information Visit Type Treatment Note Visit Note 06/19 Visit Start Time 13:47 Visit Stop Time 14:40 Total Visit Minutes 53 Visit Number 18 Number of MARKING DEVICES ASSEMBLER Visits 0 PT-OP-B Current Condition Start: 10/11/19 08:57 Freq: Status: Active Protocol: Document 10/11/19 08:58 [facility] (Rec: 10/11/19 10:36 [facility] [id number]) Current Condition History of Current Condition Onset Date chronic Current Complaints L>R LBP and R hip History of Current Condition Pt reprots his pain in LB and hip is worse recently and R hip bothers him especially when bending over especially to R side. Pt has been using walking sticks when he is going on walks and using a cane for around the yard, but no AD in the house. Pt notes he gets a sudden weakness sometimes in L LB where it feels like it gives out. Pt reports waking up with serious cramps in R leg and pain in R knee. Pt reports he can massage that pain away. Pt reports he notices he is a little wobbly sometimes. notes his posture is not great and notes he cannot keep up well when walking his . Reports walking too long can cause LBP. notes he has more trouble getting up and down from a chair especially in a lower chair. Prior Treatments and Tests PT which helps Treatment Goals Patient/Caregiver Goals find out which exercises to be doing, inc strength and balance PT-OP-C Subjective Start: 10/11/19 08:57 Freq: Status: Active Protocol: Document 12/20/19 13:49 [facility] (Rec: 12/20/19 14:33 [facility] [id number]) OP-PT Subjective Patient Comments Patient Comments Pt reports pain is kind of constant in R LB region & had trouble with putting on socks this AM. PT-OP-E Functional Tests Start: 10/11/19 08:57 Freq: Status: Active Protocol: Document 12/13/19 13:52 [facility] (Rec: 12/13/19 14:33 [facility] [id number]) Functional Tests Five Times Sit to Stand Test Score 18sec Functional Gait Assessment Score 24 PT-OP-G Mobility & Gait Start: 10/11/19 08:57 Freq: Status: Active Protocol: Document 10/11/19 08:58 [facility] (Rec: 10/11/19 10:36 [facility] [id number]) OP Gait Assessment Comments Gait Comments Pt has inc fwd flex at trunk, lat leaning and primarily leg walker PT-OP-J Posture/Palpation/Skin Start: 10/11/19 08:57 Freq: Status: Active Protocol: Document 12/13/19 13:52 [facility] (Rec: 12/13/19 14:33 [facility] [id number]) Posture Evaluation [facility] Postural Classification System Lumbar Protective Mechanism Left AP 3 Lumbar Protective Mechanism Right AP 2 Lumbar Protective Mechanism Left PA 2 Lumbar Protective Mechanism Right PA 2 PT-OP-L Special Tests Start: 10/11/19 08:57 Freq: Status: Active Protocol: Document 10/11/19 08:58 [facility] (Rec: 10/11/19 10:36 [facility] [id number]) Special Tests Lumbar Spine Special Tests Slump Test Results neg B Straight Leg Raise Test Results neg B HS tightness to about 40 deg hip flex PT-OP-M Strength Start: 10/11/19 08:57 Freq: Status: Active Protocol: Document 12/13/19 13:52 [facility] (Rec: 12/13/19 14:33 [facility] [id number]) Hip Strength Hip Manual Muscle Testing Left Flexion (L2) 4+ Good+ Extension (S1) 4- Good- Abduction 4 Good External Rotation 4 Good Internal Rotation 4+ Good+ Right Flexion (L2) 4- Good- Extension (S1) 4- Good- Abduction 4- Good- External Rotation 3+ Fair+ Internal Rotation 4 Good Comments very limited in ER ROM Knee Strength Knee Manual Muscle Testing Right Flexion (S2) 5 Normal Extension (L3) 5 Normal Left Flexion (S2) 5 Normal Extension (L3) 5 Normal Ankle/Foot Strength Ankle and Foot Manual Muscle Testing Right Dorsiflexion (L4) 5 Normal Plantarflexion (S1) 5 Normal Left Dorsiflexion (L4) 5 Normal Plantarflexion (S1) 5 Normal Comments PF tested seated PT-OP-Q Treatments Start: 10/11/19 08:57 Freq: Status: Active Protocol: Document 12/20/19 13:49 [facility] (Rec: 12/20/19 14:33 [facility] [id number]) Cardio Equipment Recumbent Bicycle Duration (Minutes) 5 Resistance 11 Seat Position 12 Gym Equipment Sport Cord back Cord/Resistance green Reps/Duration 10 fwd Cord/Resistance green Reps/Duration 10 Gait Training Gait Activity gait Comments 1. resisted gait with dowel 2. working on push off in mirror wt acceptance Description SLS w/o lat shift wt shifts Description fwd in mirror Manual Therapy Treatment Soft Tissue Mobilization 4 Body Location QL &ES R Mobilization Type Rolling,Sustained Pressure Body Position Sidelying PT-OP-R Modalities Start: 10/11/19 08:57 Freq: Status: Active Protocol: Document 12/20/19 13:49 [facility] (Rec: 12/20/19 14:33 [facility] [id number]) Hot Pack/Cold Pack Treatment Cold Pack Location LS Patient Position Hooklying PT-OP-T Assessment and Plan Start: 10/11/19 08:57 Freq: Status: Active Protocol: Document 12/20/19 13:49 [facility] (Rec: 12/20/19 14:33 [facility] [id number]) Physical Therapy Assessment Goals Four Impairment ability to get up/down from chair 5x sit<>stand=22 sec Short Term Goal (STG) Pt will be able to do 5x sit to termite exterminator 18 sec to show improved ability to get up/ down from chair. 11/15-still limited STG Duration achieved to 18 sec Jig And Fixture Builder Goal (LTG) Pt will be able to do 5x sit to termite exterminator 13 sec to show improved ability to get up/ down from chair. LTG Duration 02/12/20 Three Impairment FGA Jig And Fixture Builder Goal (LTG) Pt will score >25/30 on FGA to show low risk for falls. 11/15-22/25 12/12-24/30 LTG Duration 02/12/20 Two Halfway Goal (LTG) Pt will be able to bend over to put on shoes without inc pain. 11/15-pt reports pain is very minimal LTG Duration achieved One Impairment strength Short Term Goal (STG) Pt will be indep with HEP. STG Duration achieved Halfway Goal (LTG) Pt will have 4+/5 LE strength B and 3/5 LPM in order to show improves stability in order to inc confidence with doing typical activities. 11/15-improving 12/12-increasing LTG Duration 02/12/20 Physical Therapy Plan Frequency and Duration Frequency of Treatment 1-2x/week Duration of Treatment 2 months Plan of Care Start Date 12/13/19 Plan of Care End Date 02/12/20 Next Visit Focus/Plan Next Note Type Treatment Note Next Visit Plan work on R hip mobility & high level dynamic balance & PNF patterns for rolling & walking & work on resisted walking
--- NOTE | 2019-12-27 18:17 | PT.OTN ---
Current Diagnoses Spinal stenosis, lumbar region with neurogenic claudication (12/27/19) Difficulty in walking, not elsewhere classified (12/27/19) Abnormal posture (12/27/19) Weakness (12/27/19) Physical Therapy Treatment Note PT-OP-A Visit Information Start: 10/11/19 08:57 Freq: Status: Active Protocol: Document 12/27/19 18:12 [facility] (Rec: 12/27/19 18:17 [facility] [id number]) Out-Patient Physical Therapy Visit Information Visit Information Visit Type Treatment Note Visit Note 07/17 Visit Start Time 13:57 Visit Stop Time 14:40 Total Visit Minutes 43 Visit Number 19 Number of PEAT SHREDDER TENDER Visits 0 PT-OP-B Current Condition Start: 10/11/19 08:57 Freq: Status: Active Protocol: Document 10/11/19 08:58 [facility] (Rec: 10/11/19 10:36 [facility] [id number]) Current Condition History of Current Condition Onset Date chronic Current Complaints L>R LBP and R hip History of Current Condition Pt reprots his pain in LB and hip is worse recently and R hip bothers him especially when bending over especially to R side. Pt has been using walking sticks when he is going on walks and using a cane for around the yard, but no AD in the house. Pt notes he gets a sudden weakness sometimes in L LB where it feels like it gives out. Pt reports waking up with serious cramps in R leg and pain in R knee. Pt reports he can massage that pain away. Pt reports he notices he is a little wobbly sometimes. notes his posture is not great and notes he cannot keep up well when walking his . Reports walking too long can cause LBP. notes he has more trouble getting up and down from a chair especially in a lower chair. Prior Treatments and Tests PT which helps Treatment Goals Patient/Caregiver Goals find out which exercises to be doing, inc strength and balance PT-OP-C Subjective Start: 10/11/19 08:57 Freq: Status: Active Protocol: Document 12/27/19 18:12 [facility] (Rec: 12/27/19 18:17 [facility] [id number]) OP-PT Subjective Patient Comments Patient Comments pt reports pain is off and on in back PT-OP-E Functional Tests Start: 10/11/19 08:57 Freq: Status: Active Protocol: Document 12/13/19 13:52 [facility] (Rec: 12/13/19 14:33 [facility] [id number]) Functional Tests Five Times Sit to Stand Test Score 18sec Functional Gait Assessment Score 24 PT-OP-G Mobility & Gait Start: 10/11/19 08:57 Freq: Status: Active Protocol: Document 10/11/19 08:58 [facility] (Rec: 10/11/19 10:36 [facility] [id number]) OP Gait Assessment Comments Gait Comments Pt has inc fwd flex at trunk, lat leaning and primarily leg walker PT-OP-J Posture/Palpation/Skin Start: 10/11/19 08:57 Freq: Status: Active Protocol: Document 12/13/19 13:52 [facility] (Rec: 12/13/19 14:33 [facility] [id number]) Posture Evaluation Augusto Postural Classification System Lumbar Protective Mechanism Left AP 3 Lumbar Protective Mechanism Right AP 2 Lumbar Protective Mechanism Left PA 2 Lumbar Protective Mechanism Right PA 2 PT-OP-L Special Tests Start: 10/11/19 08:57 Freq: Status: Active Protocol: Document 10/11/19 08:58 [facility] (Rec: 10/11/19 10:36 [facility] [id number]) Special Tests Lumbar Spine Special Tests Slump Test Results neg B Straight Leg Raise Test Results neg B HS tightness to about 40 deg hip flex PT-OP-M Strength Start: 10/11/19 08:57 Freq: Status: Active Protocol: Document 12/13/19 13:52 [facility] (Rec: 12/13/19 14:33 [facility] [id number]) Hip Strength Hip Manual Muscle Testing Left Flexion (L2) 4+ Good+ Extension (S1) 4- Good- Abduction 4 Good External Rotation 4 Good Internal Rotation 4+ Good+ Right Flexion (L2) 4- Good- Extension (S1) 4- Good- Abduction 4- Good- External Rotation 3+ Fair+ Internal Rotation 4 Good Comments very limited in ER ROM Knee Strength Knee Manual Muscle Testing Right Flexion (S2) 5 Normal Extension (L3) 5 Normal Left Flexion (S2) 5 Normal Extension (L3) 5 Normal Ankle/Foot Strength Ankle and Foot Manual Muscle Testing Right Dorsiflexion (L4) 5 Normal Plantarflexion (S1) 5 Normal Left Dorsiflexion (L4) 5 Normal Plantarflexion (S1) 5 Normal Comments PF tested seated PT-OP-Q Treatments Start: 10/11/19 08:57 Freq: Status: Active Protocol: Document 12/27/19 18:12 [facility] (Rec: 12/27/19 18:17 [facility] [id number]) Gym Equipment Sport Cord fwd Cord/Resistance red Reps/Duration 10 ea Comments 1.wt shifts in mirror 2. fwd walk Therapeutic Exercises Supine Exercises Tabd Supine Exercise Name march progressed to scissor Side bilateral Reps/Minutes 10 then 2x10 1 Supine Exercise Name uni hip lift from feldenkris roll pattern Side bilateral Reps/Minutes 12 Gait Training Gait Activity gait Comments 1. resisted gait with dowel wt shifts Description fwd in mirror Manual Therapy Treatment Joint Mobilizations 3 Joint sacrum Direction UPA R & caudal FM 2 Joint innominate R Direction caudal FM PT-OP-R Modalities Start: 10/11/19 08:57 Freq: Status: Active Protocol: Document 12/27/19 18:12 [facility] (Rec: 12/27/19 18:17 [facility] [id number]) Hot Pack/Cold Pack Treatment Cold Pack Location LS Patient Position Hooklying PT-OP-T Assessment and Plan Start: 10/11/19 08:57 Freq: Status: Active Protocol: Document 12/27/19 18:12 [facility] (Rec: 12/27/19 18:17 [facility] [id number]) Physical Therapy Assessment Goals Four Impairment ability to get up/down from chair 5x sit<>stand=22 sec Short Term Goal (STG) Pt will be able to do 5x sit to machining and assembly supervisor 18 sec to show improved ability to get up/ down from chair. 11/15-still limited STG Duration achieved to 18 sec Longterm Goal (LTG) Pt will be able to do 5x sit to machining and assembly supervisor 13 sec to show improved ability to get up/ down from chair. LTG Duration 02/12/20 Three Impairment FGA Longterm Goal (LTG) Pt will score >25/30 on FGA to show low risk for falls. 11/15-22/25 12/12-24/30 LTG Duration 02/12/20 Two Longterm Goal (LTG) Pt will be able to bend over to put on shoes without inc pain. 11/15-pt reports pain is very minimal LTG Duration achieved One Impairment strength Short Term Goal (STG) Pt will be indep with HEP. STG Duration achieved Longterm Goal (LTG) Pt will have 4+/5 LE strength B and 3/5 LPM in order to show improves stability in order to inc confidence with doing typical activities. 11/15-improving 12/12-increasing LTG Duration 02/12/20 Assessment Summary Assessment Pt improved w/push off today after all gait activities and was able to demonstrate imrpovement in wt shift since last session. He did not report pain at all during session. Cueing required during exercises for focus on maintaining core stability. Physical Therapy Plan Frequency and Duration Frequency of Treatment 1-2x/week Duration of Treatment 2 months Plan of Care Start Date 12/13/19 Plan of Care End Date 02/12/20 Next Visit Focus/Plan Next Note Type Treatment Note Next Visit Plan work on R hip mobility & high level dynamic balance & PNF patterns for rolling & walking & work on resisted walking
--- NOTE | 2020-01-04 08:17 | PT.OTN ---
Current Diagnoses Spinal stenosis, lumbar region with neurogenic claudication (01/04/20) Difficulty in walking, not elsewhere classified (01/04/20) Abnormal posture (01/04/20) Weakness (01/04/20) Physical Therapy Treatment Note PT-OP-A Visit Information Start: 10/11/19 08:57 Freq: Status: Active Protocol: Document 01/04/20 07:31 [facility] (Rec: 01/04/20 08:16 [facility] [id number]) Out-Patient Physical Therapy Visit Information Visit Information Visit Type Treatment Note Visit Note 08/17 Visit Start Time 07:30 Visit Stop Time 08:20 Total Visit Minutes 50 Visit Number 20 Number of ASSOCIATE AUTOMATION ENGINEER Visits 0 PT-OP-B Current Condition Start: 10/11/19 08:57 Freq: Status: Active Protocol: Document 10/11/19 08:58 [facility] (Rec: 10/11/19 10:36 [facility] [id number]) Current Condition History of Current Condition Onset Date chronic Current Complaints L>R LBP and R hip History of Current Condition Pt reprots his pain in LB and hip is worse recently and R hip bothers him especially when bending over especially to R side. Pt has been using walking sticks when he is going on walks and using a cane for around the yard, but no AD in the house. Pt notes he gets a sudden weakness sometimes in L LB where it feels like it gives out. Pt reports waking up with serious cramps in R leg and pain in R knee. Pt reports he can massage that pain away. Pt reports he notices he is a little wobbly sometimes. notes his posture is not great and notes he cannot keep up well when walking his . Reports walking too long can cause LBP. notes he has more trouble getting up and down from a chair especially in a lower chair. Prior Treatments and Tests PT which helps Treatment Goals Patient/Caregiver Goals find out which exercises to be doing, inc strength and balance PT-OP-C Subjective Start: 10/11/19 08:57 Freq: Status: Active Protocol: Document 01/04/20 07:31 [facility] (Rec: 01/04/20 08:16 [facility] [id number]) OP-PT Subjective Patient Comments Patient Comments Pt walked part of [employer] and worked on his push off and inc stride and he moved faster and smoother and had no cramps after. No zingers in 2-3 weeks. Pt still has some constant ache but it is minor Patient Reported Progress Improving PT-OP-E Functional Tests Start: 10/11/19 08:57 Freq: Status: Active Protocol: Document 12/13/19 13:52 [facility] (Rec: 12/13/19 14:33 [facility] [id number]) Functional Tests Five Times Sit to Stand Test Score 18sec Functional Gait Assessment Score 24 PT-OP-G Mobility & Gait Start: 10/11/19 08:57 Freq: Status: Active Protocol: Document 10/11/19 08:58 [facility] (Rec: 10/11/19 10:36 [facility] [id number]) OP Gait Assessment Comments Gait Comments Pt has inc fwd flex at trunk, lat leaning and primarily leg walker PT-OP-J Posture/Palpation/Skin Start: 10/11/19 08:57 Freq: Status: Active Protocol: Document 12/13/19 13:52 [facility] (Rec: 12/13/19 14:33 [facility] [id number]) Posture Evaluation Augusto Postural Classification System Lumbar Protective Mechanism Left AP 3 Lumbar Protective Mechanism Right AP 2 Lumbar Protective Mechanism Left PA 2 Lumbar Protective Mechanism Right PA 2 PT-OP-L Special Tests Start: 10/11/19 08:57 Freq: Status: Active Protocol: Document 10/11/19 08:58 [facility] (Rec: 10/11/19 10:36 [facility] [id number]) Special Tests Lumbar Spine Special Tests Slump Test Results neg B Straight Leg Raise Test Results neg B HS tightness to about 40 deg hip flex PT-OP-M Strength Start: 10/11/19 08:57 Freq: Status: Active Protocol: Document 12/13/19 13:52 [facility] (Rec: 12/13/19 14:33 [facility] [id number]) Hip Strength Hip Manual Muscle Testing Left Flexion (L2) 4+ Good+ Extension (S1) 4- Good- Abduction 4 Good External Rotation 4 Good Internal Rotation 4+ Good+ Right Flexion (L2) 4- Good- Extension (S1) 4- Good- Abduction 4- Good- External Rotation 3+ Fair+ Internal Rotation 4 Good Comments very limited in ER ROM Knee Strength Knee Manual Muscle Testing Right Flexion (S2) 5 Normal Extension (L3) 5 Normal Left Flexion (S2) 5 Normal Extension (L3) 5 Normal Ankle/Foot Strength Ankle and Foot Manual Muscle Testing Right Dorsiflexion (L4) 5 Normal Plantarflexion (S1) 5 Normal Left Dorsiflexion (L4) 5 Normal Plantarflexion (S1) 5 Normal Comments PF tested seated PT-OP-Q Treatments Start: 10/11/19 08:57 Freq: Status: Active Protocol: Document 01/04/20 07:31 [facility] (Rec: 01/04/20 08:16 [facility] [id number]) Cardio Equipment Recumbent Bicycle Duration (Minutes) 5 Resistance 12 Seat Position 12 Gym Equipment Sport Cord fwd Cord/Resistance red Reps/Duration 10 ea Comments 1.wt shifts in mirror 2. fwd walk Therapeutic Exercises Standing Exercises 7 Standing Exercise Name hip hikes Side bilateral Reps/Minutes 12 Comments max ceuing Gait Training Gait Activity gait Comments 1. resisted gait with dowel 2. working on push off in mirror wt acceptance Description SLS w/o lat shift wt shifts Description fwd in mirror Manual Therapy Treatment Soft Tissue Mobilization 4 Body Location QL &ES R Mobilization Type Rolling,Sustained Pressure Body Position Sidelying PT-OP-R Modalities Start: 10/11/19 08:57 Freq: Status: Active Protocol: Document 01/04/20 07:31 [facility] (Rec: 01/04/20 08:16 [facility] [id number]) Hot Pack/Cold Pack Treatment Cold Pack Location LS Patient Position Hooklying PT-OP-T Assessment and Plan Start: 10/11/19 08:57 Freq: Status: Active Protocol: Document 01/04/20 07:31 [facility] (Rec: 01/04/20 08:16 [facility] [id number]) Physical Therapy Assessment Goals Four Impairment ability to get up/down from chair 5x sit<>stand=22 sec Short Term Goal (STG) Pt will be able to do 5x sit to day treatment clinician/art therapist 18 sec to show improved ability to get up/ down from chair. 11/15-still limited STG Duration achieved to 18 sec Carton Making Machinist Goal (LTG) Pt will be able to do 5x sit to day treatment clinician/art therapist 13 sec to show improved ability to get up/ down from chair. LTG Duration 02/12/20 Three Impairment FGA Half-Way Goal (LTG) Pt will score >25/30 on FGA to show low risk for falls. 11/15- 12/12- LTG Duration 02/12/20 Two Carton Making Machinist Goal (LTG) Pt will be able to bend over to put on shoes without inc pain. 11/15-pt reports pain is very minimal LTG Duration achieved One Impairment strength Short Term Goal (STG) Pt will be indep with HEP. STG Duration achieved Carton Making Machinist Goal (LTG) Pt will have 4+/5 LE strength B and 3/5 LPM in order to show improves stability in order to inc confidence with doing typical activities. 11/15-improving 12/12-increasing LTG Duration 02/12/20 Assessment Summary Assessment Pt cont to improve with gait pattern with dec lat shifting. he requires significant cueing to dec this. He improved at end to have better push off through hip and calves. Physical Therapy Plan Frequency and Duration Frequency of Treatment 1-2x/week Duration of Treatment 2 months Plan of Care Start Date 12/13/19 Plan of Care End Date 02/12/20 Next Visit Focus/Plan Next Note Type Treatment Note Next Visit Plan work on R hip mobility & high level dynamic balance & PNF patterns for rolling & walking & work on resisted walking
--- NOTE | 2020-01-11 08:16 | PT.OTN ---
Current Diagnoses Spinal stenosis, lumbar region with neurogenic claudication (01/11/20) Difficulty in walking, not elsewhere classified (01/11/20) Abnormal posture (01/11/20) Weakness (01/11/20) Physical Therapy Treatment Note PT-OP-A Visit Information Start: 10/11/19 08:57 Freq: Status: Active Protocol: Document 01/11/20 07:26 [facility] (Rec: 01/11/20 08:16 [facility] [id number]) Out-Patient Physical Therapy Visit Information Visit Information Visit Type Treatment Note Visit Note 09/16 Visit Start Time 07:30 Visit Stop Time 08:22 Total Visit Minutes 52 Visit Number 21 Number of CORPORATE SECURITY OFFICER Visits 0 PT-OP-B Current Condition Start: 10/11/19 08:57 Freq: Status: Active Protocol: Document 10/11/19 08:58 [facility] (Rec: 10/11/19 10:36 [facility] [id number]) Current Condition History of Current Condition Onset Date chronic Current Complaints L>R LBP and R hip History of Current Condition Pt reprots his pain in LB and hip is worse recently and R hip bothers him especially when bending over especially to R side. Pt has been using walking sticks when he is going on walks and using a cane for around the yard, but no AD in the house. Pt notes he gets a sudden weakness sometimes in L LB where it feels like it gives out. Pt reports waking up with serious cramps in R leg and pain in R knee. Pt reports he can massage that pain away. Pt reports he notices he is a little wobbly sometimes. notes his posture is not great and notes he cannot keep up well when walking his . Reports walking too long can cause LBP. notes he has more trouble getting up and down from a chair especially in a lower chair. Prior Treatments and Tests PT which helps Treatment Goals Patient/Caregiver Goals find out which exercises to be doing, inc strength and balance PT-OP-C Subjective Start: 10/11/19 08:57 Freq: Status: Active Protocol: Document 01/11/20 07:26 [facility] (Rec: 01/11/20 08:16 [facility] [id number]) OP-PT Subjective Patient Comments Patient Comments Pt reports he has been working on his gait. no more zingers, just a constant ache that is a little worse in the evening. PT-OP-E Functional Tests Start: 10/11/19 08:57 Freq: Status: Active Protocol: Document 12/13/19 13:52 [facility] (Rec: 12/13/19 14:33 [facility] [id number]) Functional Tests Five Times Sit to Stand Test Score 18sec Functional Gait Assessment Score 24 PT-OP-G Mobility & Gait Start: 10/11/19 08:57 Freq: Status: Active Protocol: Document 10/11/19 08:58 [facility] (Rec: 10/11/19 10:36 [facility] [id number]) OP Gait Assessment Comments Gait Comments Pt has inc fwd flex at trunk, lat leaning and primarily leg walker PT-OP-J Posture/Palpation/Skin Start: 10/11/19 08:57 Freq: Status: Active Protocol: Document 12/13/19 13:52 [facility] (Rec: 12/13/19 14:33 [facility] [id number]) Posture Evaluation [facility] Postural Classification System Lumbar Protective Mechanism Left AP 3 Lumbar Protective Mechanism Right AP 2 Lumbar Protective Mechanism Left PA 2 Lumbar Protective Mechanism Right PA 2 PT-OP-L Special Tests Start: 10/11/19 08:57 Freq: Status: Active Protocol: Document 10/11/19 08:58 [facility] (Rec: 10/11/19 10:36 [facility] [id number]) Special Tests Lumbar Spine Special Tests Slump Test Results neg B Straight Leg Raise Test Results neg B HS tightness to about 40 deg hip flex PT-OP-M Strength Start: 10/11/19 08:57 Freq: Status: Active Protocol: Document 12/13/19 13:52 [facility] (Rec: 12/13/19 14:33 [facility] [id number]) Hip Strength Hip Manual Muscle Testing Left Flexion (L2) 4+ Good+ Extension (S1) 4- Good- Abduction 4 Good External Rotation 4 Good Internal Rotation 4+ Good+ Right Flexion (L2) 4- Good- Extension (S1) 4- Good- Abduction 4- Good- External Rotation 3+ Fair+ Internal Rotation 4 Good Comments very limited in ER ROM Knee Strength Knee Manual Muscle Testing Right Flexion (S2) 5 Normal Extension (L3) 5 Normal Left Flexion (S2) 5 Normal Extension (L3) 5 Normal Ankle/Foot Strength Ankle and Foot Manual Muscle Testing Right Dorsiflexion (L4) 5 Normal Plantarflexion (S1) 5 Normal Left Dorsiflexion (L4) 5 Normal Plantarflexion (S1) 5 Normal Comments PF tested seated PT-OP-Q Treatments Start: 10/11/19 08:57 Freq: Status: Active Protocol: Document 01/11/20 07:26 [facility] (Rec: 01/11/20 08:16 [facility] [id number]) Cardio Equipment Recumbent Bicycle Duration (Minutes) 5 Resistance 12 Seat Position 12 Gym Equipment Sport Cord side step Cord/Resistance red Reps/Duration 10 B back Cord/Resistance red Reps/Duration 10 fwd Cord/Resistance red Reps/Duration 10 ea Comments 1.wt shifts in mirror 2. fwd walk Therapeutic Exercises Standing Exercises 7 Standing Exercise Name hip hikes Side bilateral Reps/Minutes 8 Gait Training Gait Activity gait Comments 1. resisted gait with dowel 2. working on push off in mirror wt acceptance Description SLS w/o lat shift wt shifts Description fwd in mirror Manual Therapy Treatment Soft Tissue Mobilization 4 Body Location QL &ES R Mobilization Type Rolling,Sustained Pressure Body Position Sidelying PT-OP-R Modalities Start: 10/11/19 08:57 Freq: Status: Active Protocol: Document 01/11/20 07:26 [facility] (Rec: 01/11/20 08:16 [facility] [id number]) Hot Pack/Cold Pack Treatment Cold Pack Location LS Patient Position Hooklying PT-OP-T Assessment and Plan Start: 10/11/19 08:57 Freq: Status: Active Protocol: Document 01/11/20 07:26 [facility] (Rec: 01/11/20 08:16 [facility] [id number]) Physical Therapy Assessment Goals Four Impairment ability to get up/down from chair 5x sit<>stand=22 sec Short Term Goal (STG) Pt will be able to do 5x sit to insurance assistant 18 sec to show improved ability to get up/ down from chair. 11/15-still limited STG Duration achieved to 18 sec Correspondence Clerk Goal (LTG) Pt will be able to do 5x sit to insurance assistant 13 sec to show improved ability to get up/ down from chair. LTG Duration 02/12/20 Three Impairment FGA Correspondence Clerk Goal (LTG) Pt will score >25/30 on FGA to show low risk for falls. 11/15- 12/12-24/30 LTG Duration 02/12/20 Two Correspondence Clerk Goal (LTG) Pt will be able to bend over to put on shoes without inc pain. 11/15-pt reports pain is very minimal LTG Duration achieved One Impairment strength Short Term Goal (STG) Pt will be indep with HEP. STG Duration achieved Correspondence Clerk Goal (LTG) Pt will have 4+/5 LE strength B and 3/5 LPM in order to show improves stability in order to inc confidence with doing typical activities. 11/15-improving 12/12-increasing LTG Duration 02/12/20 Assessment Summary Assessment Pt is improving with gait pattern but does require cueing to get full wt shift to fwd leg prior to trying to take a step. He has limited range with hip hike but is able to do it today with min cueing. Physical Therapy Plan Frequency and Duration Frequency of Treatment 1-2x/week Duration of Treatment 2 months Plan of Care Start Date 12/13/19 Plan of Care End Date 02/12/20 Next Visit Focus/Plan Next Note Type Treatment Note Next Visit Plan work on R hip mobility & high level dynamic balance & PNF patterns for rolling & walking & work on resisted walking
--- NOTE | 2020-01-17 08:41 | PT.OTN ---
Current Diagnoses Spinal stenosis, lumbar region with neurogenic claudication (01/17/20) Difficulty in walking, not elsewhere classified (01/17/20) Abnormal posture (01/17/20) Weakness (01/17/20) Physical Therapy Treatment Note PT-OP-A Visit Information Start: 10/11/19 08:57 Freq: Status: Active Protocol: Document 01/17/20 07:28 [facility] (Rec: 01/17/20 08:41 [facility] [id number]) Out-Patient Physical Therapy Visit Information Visit Information Visit Type Treatment Note Visit Note 10/17 Visit Start Time 07:30 Visit Stop Time 08:21 Total Visit Minutes 51 Visit Number 22 Number of LEGAL COLLECTOR Visits 0 PT-OP-B Current Condition Start: 10/11/19 08:57 Freq: Status: Active Protocol: Document 10/11/19 08:58 [facility] (Rec: 10/11/19 10:36 [facility] [id number]) Current Condition History of Current Condition Onset Date chronic Current Complaints L>R LBP and R hip History of Current Condition Pt reprots his pain in LB and hip is worse recently and R hip bothers him especially when bending over especially to R side. Pt has been using walking sticks when he is going on walks and using a cane for around the yard, but no AD in the house. Pt notes he gets a sudden weakness sometimes in L LB where it feels like it gives out. Pt reports waking up with serious cramps in R leg and pain in R knee. Pt reports he can massage that pain away. Pt reports he notices he is a little wobbly sometimes. notes his posture is not great and notes he cannot keep up well when walking his . Reports walking too long can cause LBP. notes he has more trouble getting up and down from a chair especially in a lower chair. Prior Treatments and Tests PT which helps Treatment Goals Patient/Caregiver Goals find out which exercises to be doing, inc strength and balance PT-OP-C Subjective Start: 10/11/19 08:57 Freq: Status: Active Protocol: Document 01/17/20 07:28 [facility] (Rec: 01/17/20 08:41 [facility] [id number]) OP-PT Subjective Patient Comments Patient Comments Pt reports only achey pain PT-OP-E Functional Tests Start: 10/11/19 08:57 Freq: Status: Active Protocol: Document 12/13/19 13:52 [facility] (Rec: 12/13/19 14:33 [facility] [id number]) Functional Tests Five Times Sit to Stand Test Score 18sec Functional Gait Assessment Score 24 PT-OP-G Mobility & Gait Start: 10/11/19 08:57 Freq: Status: Active Protocol: Document 10/11/19 08:58 [facility] (Rec: 10/11/19 10:36 [facility] [id number]) OP Gait Assessment Comments Gait Comments Pt has inc fwd flex at trunk, lat leaning and primarily leg walker PT-OP-J Posture/Palpation/Skin Start: 10/11/19 08:57 Freq: Status: Active Protocol: Document 12/13/19 13:52 [facility] (Rec: 12/13/19 14:33 [facility] [id number]) Posture Evaluation [facility] Postural Classification System Lumbar Protective Mechanism Left AP 3 Lumbar Protective Mechanism Right AP 2 Lumbar Protective Mechanism Left PA 2 Lumbar Protective Mechanism Right PA 2 PT-OP-L Special Tests Start: 10/11/19 08:57 Freq: Status: Active Protocol: Document 10/11/19 08:58 [facility] (Rec: 10/11/19 10:36 [facility] [id number]) Special Tests Lumbar Spine Special Tests Slump Test Results neg B Straight Leg Raise Test Results neg B HS tightness to about 40 deg hip flex PT-OP-M Strength Start: 10/11/19 08:57 Freq: Status: Active Protocol: Document 12/13/19 13:52 [facility] (Rec: 12/13/19 14:33 [facility] [id number]) Hip Strength Hip Manual Muscle Testing Left Flexion (L2) 4+ Good+ Extension (S1) 4- Good- Abduction 4 Good External Rotation 4 Good Internal Rotation 4+ Good+ Right Flexion (L2) 4- Good- Extension (S1) 4- Good- Abduction 4- Good- External Rotation 3+ Fair+ Internal Rotation 4 Good Comments very limited in ER ROM Knee Strength Knee Manual Muscle Testing Right Flexion (S2) 5 Normal Extension (L3) 5 Normal Left Flexion (S2) 5 Normal Extension (L3) 5 Normal Ankle/Foot Strength Ankle and Foot Manual Muscle Testing Right Dorsiflexion (L4) 5 Normal Plantarflexion (S1) 5 Normal Left Dorsiflexion (L4) 5 Normal Plantarflexion (S1) 5 Normal Comments PF tested seated PT-OP-Q Treatments Start: 10/11/19 08:57 Freq: Status: Active Protocol: Document 01/17/20 07:28 [facility] (Rec: 01/17/20 08:41 [facility] [id number]) Cardio Equipment Recumbent Bicycle Duration (Minutes) 5 Resistance 12 Seat Position 12 Gym Equipment Sport Cord side step Cord/Resistance red Reps/Duration 10 B back Cord/Resistance red Reps/Duration 10 fwd Cord/Resistance red Reps/Duration 10 ea Comments 1.wt shifts in mirror b 2. wt shift with step B 3. fwd walk Therapeutic Exercises Standing Exercises 6 Standing Exercise Name wall posture w/arm ext Side bilateral 5 Standing Exercise Name rows Side bilateral Equipment Used L2 Reps/Minutes 20 Comments focus on posture Manual Therapy Treatment Soft Tissue Mobilization 3 Body Location thoracoloumbar fascia Mobilization Type Myofascial Release,Sustained Pressure Intensity/Depth Superficial Body Position Sidelying Comments w/roll & reach PT-OP-R Modalities Start: 10/11/19 08:57 Freq: Status: Active Protocol: Document 01/17/20 07:28 [facility] (Rec: 01/17/20 08:41 [facility] [id number]) Hot Pack/Cold Pack Treatment Cold Pack Location LS Patient Position Hooklying PT-OP-T Assessment and Plan Start: 10/11/19 08:57 Freq: Status: Active Protocol: Document 01/17/20 07:28 [facility] (Rec: 01/17/20 08:41 [facility] [id number]) Physical Therapy Assessment Goals Four Impairment ability to get up/down from chair 5x sit<>stand=22 sec Short Term Goal (STG) Pt will be able to do 5x sit to ski instructor 18 sec to show improved ability to get up/ down from chair. 11/15-still limited STG Duration achieved to 18 sec Machine Package Sealer Goal (LTG) Pt will be able to do 5x sit to ski instructor 13 sec to show improved ability to get up/ down from chair. LTG Duration 02/12/20 Three Impairment FGA Machine Package Sealer Goal (LTG) Pt will score >25/30 on FGA to show low risk for falls. 11/15-22/25 8/-24/30 LTG Duration 02/12/20 Two Machine Package Sealer Goal (LTG) Pt will be able to bend over to put on shoes without inc pain. 11/15-pt reports pain is very minimal LTG Duration achieved One Impairment strength Short Term Goal (STG) Pt will be indep with HEP. STG Duration achieved Fpc Goal (LTG) Pt will have 4+/5 LE strength B and 3/5 LPM in order to show improves stability in order to inc confidence with doing typical activities. 11/15-improving 12/12-increasing LTG Duration 02/12/20 Assessment Summary Assessment Pt imprvoingw ith gait but does still require cueing for posture during wt shifting and walking. Worke don thoracic stability exercsies as that is where he tends to start to have breakdown of his posture which likely affects lumbar pain Physical Therapy Plan Frequency and Duration Frequency of Treatment 1-2x/week Duration of Treatment 2 months Plan of Care Start Date 12/13/19 Plan of Care End Date 02/12/20 Next Visit Focus/Plan Next Note Type Treatment Note Next Visit Plan work on R hip mobility & high level dynamic balance & PNF patterns for rolling & walking & work on resisted walking
--- NOTE | 2020-01-25 08:12 | PT.OTN ---
Current Diagnoses Spinal stenosis, lumbar region with neurogenic claudication (01/25/20) Difficulty in walking, not elsewhere classified (01/25/20) Abnormal posture (01/25/20) Weakness (01/25/20) Physical Therapy Treatment Note PT-OP-A Visit Information Start: 10/11/19 08:57 Freq: Status: Active Protocol: Document 01/25/20 07:28 [facility] (Rec: 01/25/20 08:12 [facility] [id number]) Out-Patient Physical Therapy Visit Information Visit Information Visit Type Treatment Note Visit Note 11/16 Visit Start Time 07:30 Visit Stop Time 08:19 Total Visit Minutes 49 Visit Number 23 PT-OP-B Current Condition Start: 10/11/19 08:57 Freq: Status: Active Protocol: Document 10/11/19 08:58 [facility] (Rec: 10/11/19 10:36 [facility] [id number]) Current Condition History of Current Condition Onset Date chronic Current Complaints L>R LBP and R hip History of Current Condition Pt reprots his pain in LB and hip is worse recently and R hip bothers him especially when bending over especially to R side. Pt has been using walking sticks when he is going on walks and using a cane for around the yard, but no AD in the house. Pt notes he gets a sudden weakness sometimes in L LB where it feels like it gives out. Pt reports waking up with serious cramps in R leg and pain in R knee. Pt reports he can massage that pain away. Pt reports he notices he is a little wobbly sometimes. notes his posture is not great and notes he cannot keep up well when walking his . Reports walking too long can cause LBP. notes he has more trouble getting up and down from a chair especially in a lower chair. Prior Treatments and Tests PT which helps Treatment Goals Patient/Caregiver Goals find out which exercises to be doing, inc strength and balance PT-OP-C Subjective Start: 10/11/19 08:57 Freq: Status: Active Protocol: Document 01/25/20 07:28 [facility] (Rec: 01/25/20 08:12 [facility] [id number]) OP-PT Subjective Patient Comments Patient Comments Pt reports pain still there but better. Pt reprots he saw primary care physician yesterday and he has lost some weight and bloodwork looks good Patient Reported Progress Improving PT-OP-E Functional Tests Start: 10/11/19 08:57 Freq: Status: Active Protocol: Document 12/13/19 13:52 [facility] (Rec: 12/13/19 14:33 [facility] [id number]) Functional Tests Five Times Sit to Stand Test Score 18sec Functional Gait Assessment Score 24 PT-OP-G Mobility & Gait Start: 10/11/19 08:57 Freq: Status: Active Protocol: Document 10/11/19 08:58 [facility] (Rec: 10/11/19 10:36 [facility] [id number]) OP Gait Assessment Comments Gait Comments Pt has inc fwd flex at trunk, lat leaning and primarily leg walker PT-OP-J Posture/Palpation/Skin Start: 10/11/19 08:57 Freq: Status: Active Protocol: Document 12/13/19 13:52 [facility] (Rec: 12/13/19 14:33 [facility] [id number]) Posture Evaluation [facility] Postural Classification System Lumbar Protective Mechanism Left AP 3 Lumbar Protective Mechanism Right AP 2 Lumbar Protective Mechanism Left PA 2 Lumbar Protective Mechanism Right PA 2 PT-OP-L Special Tests Start: 10/11/19 08:57 Freq: Status: Active Protocol: Document 10/11/19 08:58 [facility] (Rec: 10/11/19 10:36 [facility] [id number]) Special Tests Lumbar Spine Special Tests Slump Test Results neg B Straight Leg Raise Test Results neg B HS tightness to about 40 deg hip flex PT-OP-M Strength Start: 10/11/19 08:57 Freq: Status: Active Protocol: Document 12/13/19 13:52 [facility] (Rec: 12/13/19 14:33 [facility] [id number]) Hip Strength Hip Manual Muscle Testing Left Flexion (L2) 4+ Good+ Extension (S1) 4- Good- Abduction 4 Good External Rotation 4 Good Internal Rotation 4+ Good+ Right Flexion (L2) 4- Good- Extension (S1) 4- Good- Abduction 4- Good- External Rotation 3+ Fair+ Internal Rotation 4 Good Comments very limited in ER ROM Knee Strength Knee Manual Muscle Testing Right Flexion (S2) 5 Normal Extension (L3) 5 Normal Left Flexion (S2) 5 Normal Extension (L3) 5 Normal Ankle/Foot Strength Ankle and Foot Manual Muscle Testing Right Dorsiflexion (L4) 5 Normal Plantarflexion (S1) 5 Normal Left Dorsiflexion (L4) 5 Normal Plantarflexion (S1) 5 Normal Comments PF tested seated PT-OP-Q Treatments Start: 10/11/19 08:57 Freq: Status: Active Protocol: Document 01/25/20 07:28 [facility] (Rec: 01/25/20 08:12 [facility] [id number]) Cardio Equipment Recumbent Bicycle Duration (Minutes) 5 Resistance 12 Seat Position 12 Gym Equipment Sport Cord side step Cord/Resistance red Reps/Duration 10 B back Cord/Resistance red Reps/Duration 10 fwd Cord/Resistance red Reps/Duration 10 ea Comments 1.wt shifts in mirror b 2. wt shift with step B 3. fwd walk Therapeutic Exercises Standing Exercises 7 Standing Exercise Name hip hikes Side bilateral Reps/Minutes 8 6 Standing Exercise Name wall posture w/arm ext Side bilateral 5 Standing Exercise Name rows Side bilateral Equipment Used L3 Reps/Minutes 20 Comments focus on posture Manual Therapy Treatment Soft Tissue Mobilization 4 Body Location QL &ES R Mobilization Type Rolling,Sustained Pressure Body Position Sidelying 3 Body Location thoracoloumbar fascia Mobilization Type Myofascial Release,Sustained Pressure Intensity/Depth Superficial Body Position Sidelying Comments w/roll & reach PT-OP-R Modalities Start: 10/11/19 08:57 Freq: Status: Active Protocol: Document 01/25/20 07:28 [facility] (Rec: 01/25/20 08:12 [facility] [id number]) Hot Pack/Cold Pack Treatment Cold Pack Location LS Patient Position Hooklying PT-OP-T Assessment and Plan Start: 10/11/19 08:57 Freq: Status: Active Protocol: Document 01/25/20 07:28 [facility] (Rec: 01/25/20 08:12 [facility] [id number]) Physical Therapy Assessment Goals Four Impairment ability to get up/down from chair 5x sit<>stand=22 sec Short Term Goal (STG) Pt will be able to do 5x sit to manager planning 18 sec to show improved ability to get up/ down from chair. 7/9-still limited STG Duration achieved to 18 sec Head Of Transport Logistics Goal (LTG) Pt will be able to do 5x sit to manager planning 13 sec to show improved ability to get up/ down from chair. LTG Duration 02/12/20 Three Impairment FGA Head Of Transport Logistics Goal (LTG) Pt will score >25/30 on FGA to show low risk for falls. 11/15- 12/12- LTG Duration 02/12/20 Two Head Of Transport Logistics Goal (LTG) Pt will be able to bend over to put on shoes without inc pain. 11/15-pt reports pain is very minimal LTG Duration achieved One Impairment strength Short Term Goal (STG) Pt will be indep with HEP. STG Duration achieved Correction Goal (LTG) Pt will have 4+/5 LE strength B and 3/5 LPM in order to show improves stability in order to inc confidence with doing typical activities. 11/15-improving 12/12-increasing LTG Duration 02/12/20 Assessment Summary Assessment Pt showed good imporvement with hip hikes. Significant cueing required for all postural exercsies today for trunk and shoulder posture. Physical Therapy Plan Frequency and Duration Frequency of Treatment 1-2x/week Duration of Treatment 2 months Plan of Care Start Date 12/13/19 Plan of Care End Date 02/12/20 Next Visit Focus/Plan Next Note Type Treatment Note Next Visit Plan work on R hip mobility & high level dynamic balance & PNF patterns for rolling & walking & work on resisted walking
--- NOTE | 2020-01-30 15:54 | PT.OTN ---
Current Diagnoses Spinal stenosis, lumbar region with neurogenic claudication (01/30/20) Difficulty in walking, not elsewhere classified (01/30/20) Abnormal posture (01/30/20) Weakness (01/30/20) Physical Therapy Treatment Note PT-OP-A Visit Information Start: 10/11/19 08:57 Freq: Status: Active Protocol: Document 01/30/20 11:26 [facility] (Rec: 01/30/20 15:54 [facility] [id number]) Out-Patient Physical Therapy Visit Information Visit Information Visit Type Treatment Note Visit Note 12/17 Visit Start Time 11:20 Visit Stop Time 12:10 Total Visit Minutes 50 Visit Number 24 Number of SOFTWARE TEST ANALYST Visits 0 PT-OP-B Current Condition Start: 10/11/19 08:57 Freq: Status: Active Protocol: Document 10/11/19 08:58 [facility] (Rec: 10/11/19 10:36 [facility] [id number]) Current Condition History of Current Condition Onset Date chronic Current Complaints L>R LBP and R hip History of Current Condition Pt reprots his pain in LB and hip is worse recently and R hip bothers him especially when bending over especially to R side. Pt has been using walking sticks when he is going on walks and using a cane for around the yard, but no AD in the house. Pt notes he gets a sudden weakness sometimes in L LB where it feels like it gives out. Pt reports waking up with serious cramps in R leg and pain in R knee. Pt reports he can massage that pain away. Pt reports he notices he is a little wobbly sometimes. notes his posture is not great and notes he cannot keep up well when walking his . Reports walking too long can cause LBP. notes he has more trouble getting up and down from a chair especially in a lower chair. Prior Treatments and Tests PT which helps Treatment Goals Patient/Caregiver Goals find out which exercises to be doing, inc strength and balance PT-OP-C Subjective Start: 10/11/19 08:57 Freq: Status: Active Protocol: Document 01/30/20 11:26 [facility] (Rec: 01/30/20 15:54 [facility] [id number]) OP-PT Subjective Patient Comments Patient Comments Pt reports his back has been sore but he has been doing a lot of lifting and bending d/t he is working on and cleaning up his boat to sell. PT-OP-E Functional Tests Start: 10/11/19 08:57 Freq: Status: Active Protocol: Document 12/13/19 13:52 [facility] (Rec: 12/13/19 14:33 [facility] [id number]) Functional Tests Five Times Sit to Stand Test Score 18sec Functional Gait Assessment Score 24 PT-OP-G Mobility & Gait Start: 10/11/19 08:57 Freq: Status: Active Protocol: Document 10/11/19 08:58 [facility] (Rec: 10/11/19 10:36 [facility] [id number]) OP Gait Assessment Comments Gait Comments Pt has inc fwd flex at trunk, lat leaning and primarily leg walker PT-OP-J Posture/Palpation/Skin Start: 10/11/19 08:57 Freq: Status: Active Protocol: Document 12/13/19 13:52 [facility] (Rec: 12/13/19 14:33 [facility] [id number]) Posture Evaluation [facility] Postural Classification System Lumbar Protective Mechanism Left AP 3 Lumbar Protective Mechanism Right AP 2 Lumbar Protective Mechanism Left PA 2 Lumbar Protective Mechanism Right PA 2 PT-OP-L Special Tests Start: 10/11/19 08:57 Freq: Status: Active Protocol: Document 10/11/19 08:58 [facility] (Rec: 10/11/19 10:36 [facility] [id number]) Special Tests Lumbar Spine Special Tests Slump Test Results neg B Straight Leg Raise Test Results neg B HS tightness to about 40 deg hip flex PT-OP-M Strength Start: 10/11/19 08:57 Freq: Status: Active Protocol: Document 12/13/19 13:52 [facility] (Rec: 12/13/19 14:33 [facility] [id number]) Hip Strength Hip Manual Muscle Testing Left Flexion (L2) 4+ Good+ Extension (S1) 4- Good- Abduction 4 Good External Rotation 4 Good Internal Rotation 4+ Good+ Right Flexion (L2) 4- Good- Extension (S1) 4- Good- Abduction 4- Good- External Rotation 3+ Fair+ Internal Rotation 4 Good Comments very limited in ER ROM Knee Strength Knee Manual Muscle Testing Right Flexion (S2) 5 Normal Extension (L3) 5 Normal Left Flexion (S2) 5 Normal Extension (L3) 5 Normal Ankle/Foot Strength Ankle and Foot Manual Muscle Testing Right Dorsiflexion (L4) 5 Normal Plantarflexion (S1) 5 Normal Left Dorsiflexion (L4) 5 Normal Plantarflexion (S1) 5 Normal Comments PF tested seated PT-OP-Q Treatments Start: 10/11/19 08:57 Freq: Status: Active Protocol: Document 01/30/20 11:26 [facility] (Rec: 01/30/20 15:54 [facility] [id number]) Cardio Equipment Recumbent Bicycle Duration (Minutes) 5 Resistance 12 Seat Position 12 Gym Equipment Shuttle Balance 1 Details red clips Reps/Duration while hitting balloon fwd WBOS & NBOS only Comments fwd & side: WBOS & NBOS fwd: staggered stance B Sport Cord side step Cord/Resistance red Reps/Duration 10 B back Cord/Resistance red Reps/Duration 10 fwd Cord/Resistance red Reps/Duration 10 ea Comments 1.wt shifts in mirror b 2. wt shift with step B 3. fwd walk Manual Therapy Treatment Soft Tissue Mobilization 4 Body Location QL &ES R Mobilization Type Rolling,Sustained Pressure Body Position Sidelying Comments w/basking seal PT-OP-R Modalities Start: 10/11/19 08:57 Freq: Status: Active Protocol: Document 01/30/20 11:26 [facility] (Rec: 01/30/20 15:54 [facility] [id number]) Hot Pack/Cold Pack Treatment Cold Pack Location LS Patient Position Hooklying PT-OP-T Assessment and Plan Start: 10/11/19 08:57 Freq: Status: Active Protocol: Document 01/30/20 11:26 [facility] (Rec: 01/30/20 15:54 [facility] [id number]) Physical Therapy Assessment Goals Four Impairment ability to get up/down from chair 5x sit<>stand=22 sec Short Term Goal (STG) Pt will be able to do 5x sit to self sealing fuel tank repairer 18 sec to show improved ability to get up/ down from chair. 11/15-still limited STG Duration achieved to 18 sec Transfer Engineer Goal (LTG) Pt will be able to do 5x sit to self sealing fuel tank repairer 13 sec to show improved ability to get up/ down from chair. LTG Duration 02/12/20 Three Impairment FGA Transfer Engineer Goal (LTG) Pt will score >25/30 on FGA to show low risk for falls. 11/15- 12/12- LTG Duration 02/12/20 Two Transfer Engineer Goal (LTG) Pt will be able to bend over to put on shoes without inc pain. 11/15-pt reports pain is very minimal LTG Duration achieved One Impairment strength Short Term Goal (STG) Pt will be indep with HEP. STG Duration achieved Snf Goal (LTG) Pt will have 4+/5 LE strength B and 3/5 LPM in order to show improves stability in order to inc confidence with doing typical activities. 11/15-improving 12/12-increasing LTG Duration 02/12/20 Assessment Summary Assessment Pt is improving with ability to wt shift. He was able to take very step with improved push off. He cont to require cueing for posture throughout though Physical Therapy Plan Frequency and Duration Frequency of Treatment 1-2x/week Duration of Treatment 2 months Plan of Care Start Date 12/13/19 Plan of Care End Date 02/12/20 Next Visit Focus/Plan Next Note Type Treatment Note Next Visit Plan work on R hip mobility & high level dynamic balance & PNF patterns for rolling & walking & work on resisted walking
--- NOTE | 2020-02-07 10:59 | PT.OTN ---
Current Diagnoses Spinal stenosis, lumbar region with neurogenic claudication (02/07/20) Difficulty in walking, not elsewhere classified (02/07/20) Abnormal posture (02/07/20) Weakness (02/07/20) Physical Therapy Treatment Note PT-OP-A Visit Information Start: 10/11/19 08:57 Freq: Status: Active Protocol: Document 02/07/20 10:04 [facility] (Rec: 02/07/20 10:59 [facility] [id number]) Out-Patient Physical Therapy Visit Information Visit Information Visit Type Treatment Note Visit Note 01/17 Visit Start Time 09:50 Visit Stop Time 10:40 Total Visit Minutes 50 Visit Number 25 Number of COFFEE WEIGHER Visits 0 PT-OP-B Current Condition Start: 10/11/19 08:57 Freq: Status: Active Protocol: Document 10/11/19 08:58 [facility] (Rec: 10/11/19 10:36 [facility] [id number]) Current Condition History of Current Condition Onset Date chronic Current Complaints L>R LBP and R hip History of Current Condition Pt reprots his pain in LB and hip is worse recently and R hip bothers him especially when bending over especially to R side. Pt has been using walking sticks when he is going on walks and using a cane for around the yard, but no AD in the house. Pt notes he gets a sudden weakness sometimes in L LB where it feels like it gives out. Pt reports waking up with serious cramps in R leg and pain in R knee. Pt reports he can massage that pain away. Pt reports he notices he is a little wobbly sometimes. notes his posture is not great and notes he cannot keep up well when walking his . Reports walking too long can cause LBP. notes he has more trouble getting up and down from a chair especially in a lower chair. Prior Treatments and Tests PT which helps Treatment Goals Patient/Caregiver Goals find out which exercises to be doing, inc strength and balance PT-OP-C Subjective Start: 10/11/19 08:57 Freq: Status: Active Protocol: Document 02/07/20 10:04 [facility] (Rec: 02/07/20 10:59 [facility] [id number]) OP-PT Subjective Patient Comments Patient Comments mostly aches if he does a lot of standing Patient Reported Progress Improving PT-OP-E Functional Tests Start: 10/11/19 08:57 Freq: Status: Active Protocol: Document 12/13/19 13:52 [facility] (Rec: 12/13/19 14:33 [facility] [id number]) Functional Tests Five Times Sit to Stand Test Score 18sec Functional Gait Assessment Score 24 PT-OP-G Mobility & Gait Start: 10/11/19 08:57 Freq: Status: Active Protocol: Document 10/11/19 08:58 [facility] (Rec: 10/11/19 10:36 [facility] [id number]) OP Gait Assessment Comments Gait Comments Pt has inc fwd flex at trunk, lat leaning and primarily leg walker PT-OP-J Posture/Palpation/Skin Start: 10/11/19 08:57 Freq: Status: Active Protocol: Document 12/13/19 13:52 [facility] (Rec: 12/13/19 14:33 [facility] [id number]) Posture Evaluation [facility] Postural Classification System Lumbar Protective Mechanism Left AP 3 Lumbar Protective Mechanism Right AP 2 Lumbar Protective Mechanism Left PA 2 Lumbar Protective Mechanism Right PA 2 PT-OP-L Special Tests Start: 10/11/19 08:57 Freq: Status: Active Protocol: Document 10/11/19 08:58 [facility] (Rec: 10/11/19 10:36 [facility] [id number]) Special Tests Lumbar Spine Special Tests Slump Test Results neg B Straight Leg Raise Test Results neg B HS tightness to about 40 deg hip flex PT-OP-M Strength Start: 10/11/19 08:57 Freq: Status: Active Protocol: Document 12/13/19 13:52 [facility] (Rec: 12/13/19 14:33 [facility] [id number]) Hip Strength Hip Manual Muscle Testing Left Flexion (L2) 4+ Good+ Extension (S1) 4- Good- Abduction 4 Good External Rotation 4 Good Internal Rotation 4+ Good+ Right Flexion (L2) 4- Good- Extension (S1) 4- Good- Abduction 4- Good- External Rotation 3+ Fair+ Internal Rotation 4 Good Comments very limited in ER ROM Knee Strength Knee Manual Muscle Testing Right Flexion (S2) 5 Normal Extension (L3) 5 Normal Left Flexion (S2) 5 Normal Extension (L3) 5 Normal Ankle/Foot Strength Ankle and Foot Manual Muscle Testing Right Dorsiflexion (L4) 5 Normal Plantarflexion (S1) 5 Normal Left Dorsiflexion (L4) 5 Normal Plantarflexion (S1) 5 Normal Comments PF tested seated PT-OP-Q Treatments Start: 10/11/19 08:57 Freq: Status: Active Protocol: Document 02/07/20 10:04 [facility] (Rec: 02/07/20 10:59 [facility] [id number]) Gym Equipment Shuttle Balance 1 Details red clips Reps/Duration while hitting balloon fwd WBOS & NBOS only Comments fwd & side: WBOS & NBOS fwd: staggered stance B Sport Cord side step Cord/Resistance red Reps/Duration 10 B back Cord/Resistance red Reps/Duration 10 fwd Cord/Resistance red Reps/Duration 10 ea Comments 1.wt shifts in mirror b 2. wt shift with step B 3. fwd walk Therapeutic Exercises Standing Exercises 6 Standing Exercise Name wall posture w/arm ext Side bilateral Reps/Minutes 1 min 4 Standing Exercise Name doorway pec stretch Side bilateral Reps/Minutes 30sec Manual Therapy Treatment Soft Tissue Mobilization 1 Body Location along post iliac crest R Mobilization Type Rolling,Sustained Pressure Joint Mobilizations 3 Joint R innominate Direction ER FM w/clamshell 2 Joint sacrum Direction caudal & IRA w/clamshell PT-OP-R Modalities Start: 10/11/19 08:57 Freq: Status: Active Protocol: Document 02/07/20 10:04 [facility] (Rec: 02/07/20 10:59 [facility] [id number]) Hot Pack/Cold Pack Treatment Cold Pack Location LS Patient Position Hooklying PT-OP-T Assessment and Plan Start: 10/11/19 08:57 Freq: Status: Active Protocol: Document 02/07/20 10:04 [facility] (Rec: 02/07/20 10:59 [facility] [id number]) Physical Therapy Assessment Goals Four Impairment ability to get up/down from chair 5x sit<>stand=22 sec Short Term Goal (STG) Pt will be able to do 5x sit to slot machine repairer 18 sec to show improved ability to get up/ down from chair. 11/15-still limited STG Duration achieved to 18 sec Senior Net Application Developer Goal (LTG) Pt will be able to do 5x sit to slot machine repairer 13 sec to show improved ability to get up/ down from chair. LTG Duration 02/12/20 Three Impairment FGA [facility] Goal (LTG) Pt will score >25/30 on FGA to show low risk for falls. 11/15- 12/12- LTG Duration 02/12/20 Two Senior Net Application Developer Goal (LTG) Pt will be able to bend over to put on shoes without inc pain. 11/15-pt reports pain is very minimal LTG Duration achieved One Impairment strength Short Term Goal (STG) Pt will be indep with HEP. STG Duration achieved Senior Net Application Developer Goal (LTG) Pt will have 4+/5 LE strength B and 3/5 LPM in order to show improves stability in order to inc confidence with doing typical activities. 11/15-improving 12/12-increasing LTG Duration 02/12/20 Assessment Summary Assessment Pt improved with wt shift today but did require cueing for posture. he was encouraged to worko n posture in standing at all times to help dec pain with prolonged standing. Physical Therapy Plan Frequency and Duration Frequency of Treatment 1-2x/week Duration of Treatment 2 months Plan of Care Start Date 12/13/19 Plan of Care End Date 02/12/20 Next Visit Focus/Plan Next Note Type Progress Note Next Visit Plan work on R hip mobility & high level dynamic balance & PNF patterns for rolling & walking & work on resisted walking
--- NOTE | 2020-02-14 16:00 | PT.OTN ---
Current Diagnoses Spinal stenosis, lumbar region with neurogenic claudication (02/14/20) Difficulty in walking, not elsewhere classified (02/14/20) Abnormal posture (02/14/20) Weakness (02/14/20) Physical Therapy Treatment Note PT-OP-A Visit Information Start: 10/11/19 08:57 Freq: Status: Active Protocol: Document 02/14/20 15:20 [facility] (Rec: 02/14/20 16:00 [facility] [id number]) Out-Patient Physical Therapy Visit Information Visit Information Visit Type Progress Note Visit Note 05/19 Visit Start Time 15:17 Visit Stop Time 16:05 Total Visit Minutes 48 Visit Number 26 Number of SNOWBLOWER MECHANIC Visits 0 PT-OP-B Current Condition Start: 10/11/19 08:57 Freq: Status: Active Protocol: Document 10/11/19 08:58 [facility] (Rec: 10/11/19 10:36 [facility] [id number]) Current Condition History of Current Condition Onset Date chronic Current Complaints L>R LBP and R hip History of Current Condition Pt reprots his pain in LB and hip is worse recently and R hip bothers him especially when bending over especially to R side. Pt has been using walking sticks when he is going on walks and using a cane for around the yard, but no AD in the house. Pt notes he gets a sudden weakness sometimes in L LB where it feels like it gives out. Pt reports waking up with serious cramps in R leg and pain in R knee. Pt reports he can massage that pain away. Pt reports he notices he is a little wobbly sometimes. notes his posture is not great and notes he cannot keep up well when walking his . Reports walking too long can cause LBP. notes he has more trouble getting up and down from a chair especially in a lower chair. Prior Treatments and Tests PT which helps Treatment Goals Patient/Caregiver Goals find out which exercises to be doing, inc strength and balance PT-OP-C Subjective Start: 10/11/19 08:57 Freq: Status: Active Protocol: Document 02/14/20 15:20 [facility] (Rec: 02/14/20 16:00 [facility] [id number]) OP-PT Subjective Patient Comments Patient Comments Pt feels like back is feeling better. He has not been picking up anything heavy. Patient Reported Progress Improving PT-OP-E Functional Tests Start: 10/11/19 08:57 Freq: Status: Active Protocol: Document 02/14/20 15:20 [facility] (Rec: 02/14/20 16:00 [facility] [id number]) Functional Tests Five Times Sit to Stand Test Score 18sec Functional Gait Assessment Score 26/30 PT-OP-G Mobility & Gait Start: 10/11/19 08:57 Freq: Status: Active Protocol: Document 10/11/19 08:58 [facility] (Rec: 10/11/19 10:36 [facility] [id number]) OP Gait Assessment Comments Gait Comments Pt has inc fwd flex at trunk, lat leaning and primarily leg walker PT-OP-J Posture/Palpation/Skin Start: 10/11/19 08:57 Freq: Status: Active Protocol: Document 12/13/19 13:52 [facility] (Rec: 12/13/19 14:33 [facility] [id number]) Posture Evaluation [facility] Postural Classification System Lumbar Protective Mechanism Left AP 3 Lumbar Protective Mechanism Right AP 2 Lumbar Protective Mechanism Left PA 2 Lumbar Protective Mechanism Right PA 2 PT-OP-L Special Tests Start: 10/11/19 08:57 Freq: Status: Active Protocol: Document 10/11/19 08:58 [facility] (Rec: 10/11/19 10:36 [facility] [id number]) Special Tests Lumbar Spine Special Tests Slump Test Results neg B Straight Leg Raise Test Results neg B HS tightness to about 40 deg hip flex PT-OP-M Strength Start: 10/11/19 08:57 Freq: Status: Active Protocol: Document 02/14/20 15:20 [facility] (Rec: 02/14/20 16:00 [facility] [id number]) Hip Strength Hip Manual Muscle Testing Left Flexion (L2) 4 Good Extension (S1) 4+ Good+ Abduction 4+ Good+ External Rotation 4+ Good+ Internal Rotation 5 Normal Right Flexion (L2) 4 Good Extension (S1) 4 Good Abduction 4 Good External Rotation 3+ Fair+ Internal Rotation 4 Good Comments very limited in ER ROM; pain IR & ext Knee Strength Knee Manual Muscle Testing Right Flexion (S2) 5 Normal Extension (L3) 5 Normal Left Flexion (S2) 5 Normal Extension (L3) 5 Normal Ankle/Foot Strength Ankle and Foot Manual Muscle Testing Right Dorsiflexion (L4) 5 Normal Plantarflexion (S1) 4 Good Comments 14 heel raises R Left Dorsiflexion (L4) 5 Normal Plantarflexion (S1) 4- Good- Comments 10 heel raises PT-OP-Q Treatments Start: 10/11/19 08:57 Freq: Status: Active Protocol: Document 02/14/20 15:20 [facility] (Rec: 02/14/20 16:00 [facility] [id number]) Cardio Equipment Recumbent Bicycle Duration (Minutes) 5 Resistance 12 Seat Position 12 Therapeutic Exercises Sitting Exercises ER Side right Reps/Minutes 15 Comments focus on pure ER & control Standing Exercises 7 Standing Exercise Name 5x sit<>stand Reps/Minutes 2x Manual Therapy Treatment Soft Tissue Mobilization 4 Body Location QL &ES, ant sup iliac crest, upper glutes R Mobilization Type Rolling,Sustained Pressure Body Position Sidelying Neuro Re-Education Treatment Balance Activities 5 Details FGA 4 Details SLS trials B PT-OP-R Modalities Start: 10/11/19 08:57 Freq: Status: Active Protocol: Document 02/14/20 15:20 [facility] (Rec: 02/14/20 16:00 [facility] [id number]) Hot Pack/Cold Pack Treatment Cold Pack Location LS Patient Position Hooklying Treatment Duration (minutes) 10 PT-OP-T Assessment and Plan Start: 10/11/19 08:57 Freq: Status: Active Protocol: Document 02/14/20 15:20 [facility] (Rec: 02/14/20 16:00 [facility] [id number]) Physical Therapy Assessment Goals Five Impairment SLS-2 sec B Short Term Goal (STG) Pt will be able to do SLS 5 sec w/o LOB. STG Duration Half-Way Goal (LTG) Pt will be able to stand and feel safe when putting on underwear and pants. LTG Duration 04/15/20 Four Impairment ability to get up/down from chair 5x sit<>stand=22 sec Short Term Goal (STG) Pt will be able to do 5x sit to rn medical inpatient services 18 sec to show improved ability to get up/ down from chair. 11/15-still limited STG Duration achieved to 18 sec Canary Breeder Goal (LTG) Pt will be able to do 5x sit to rn medical inpatient services 13 sec to show improved ability to get up/ down from chair. 02/13-18 sec LTG Duration 04/15/20 Three Impairment FGA Canary Breeder Goal (LTG) Pt will score >25/30 on FGA to show low risk for falls. 11/15- 12/12- LTG Duration achieved Two Canary Breeder Goal (LTG) Pt will be able to bend over to put on shoes without inc pain. 11/15-pt reports pain is very minimal LTG Duration achieved One Impairment strength Short Term Goal (STG) Pt will be indep with HEP. STG Duration achieved Canary Breeder Goal (LTG) Pt will have 4+/5 LE strength B and 3/5 LPM in order to show improves stability in order to inc confidence with doing typical activities. 11/15-improving 12/12-increasing LTG Duration 04/15/20 Assessment Summary Assessment Pt is making slow but steady gains with strength and has improved with balance as shown by FGA putting him low fall risk category. Pt does still have difficulty with standing on one leg for donning/doffing pants and would bneefit from cont PT to cont to work on balance and LE and core strength. Pti s also reporting dec pain in LB/hip R region. Physical Therapy Plan Frequency and Duration Frequency of Treatment 1-2x/week Duration of Treatment 2 months Plan of Care Start Date 02/14/20 Plan of Care End Date 04/15/20 Therapeutic Interventions Therapeutic Interventions Aquatic Therapy,Balance Training,Gait Training,Home Exercise Program,Joint Mobilizations,Manual Therapy, Neuromuscular Re-education, Patient/Caregiver Education, Self-Care/Home Management,Soft Tissue Mobilization,Taping, Therapeutic Activities, Therapeutic Exercises Modalities Cold Pack/Ice Massage,Electric Stimulation,Hot Packs, Ultrasound Next Visit Focus/Plan Next Note Type Treatment Note Next Visit Plan work on R hip mobility & high level dynamic balance & PNF patterns for rolling & walking & work on resisted walking
--- NOTE | 2020-02-14 16:01 | PT.OPPOC ---
Physical, Occupational & Speech Therapy At [facility] Current Diagnoses Spinal stenosis, lumbar region with neurogenic claudication (02/14/20) Difficulty in walking, not elsewhere classified (02/14/20) Abnormal posture (02/14/20) Weakness (02/14/20) Visit Care Team Role Provider Type To Vallejo MD Attending Provider Physician Family Provider Primary Care Provider Referring Provider Specialty: Internal Medicine Address: [address] [place] [address], [id number] Email: [email or web address] Of [facility] PT-OP-T Assessment and Plan Start: 10/11/19 08:57 Freq: Status: Active Protocol: Document 02/14/20 15:20 [facility] (Rec: 02/14/20 16:00 [facility] [id number]) Physical Therapy Assessment Goals Five Impairment SLS-2 sec B Short Term Goal (STG) Pt will be able to do SLS 5 sec w/o LOB. STG Duration Swimming Instructor Goal (LTG) Pt will be able to stand and feel safe when putting on underwear and pants. LTG Duration 04/15/20 Four Impairment ability to get up/down from chair 5x sit<>stand=22 sec Short Term Goal (STG) Pt will be able to do 5x sit to customer operations intern 18 sec to show improved ability to get up/ down from chair. 11/15-still limited STG Duration achieved to 18 sec Group Home Goal (LTG) Pt will be able to do 5x sit to customer operations intern 13 sec to show improved ability to get up/ down from chair. 02/13-18 sec LTG Duration 04/15/20 Three Impairment FGA Group Home Goal (LTG) Pt will score >25/30 on FGA to show low risk for falls. 11/15-/01 01/-24/30 LTG Duration achieved Two Swimming Instructor Goal (LTG) Pt will be able to bend over to put on shoes without inc pain. 11/15-pt reports pain is very minimal LTG Duration achieved One Impairment strength Short Term Goal (STG) Pt will be indep with HEP. STG Duration achieved Group Home Goal (LTG) Pt will have 4+/5 LE strength B and 3/5 LPM in order to show improves stability in order to inc confidence with doing typical activities. 11/15-improving 12/12-increasing LTG Duration 04/15/20 Assessment Summary Assessment Pt is making slow but steady gains with strength and has improved with balance as shown by FGA putting him low fall risk category. Pt does still have difficulty with standing on one leg for donning/doffing pants and would bneefit from cont PT to cont to work on balance and LE and core strength. Pti s also reporting dec pain in LB/hip R region. Physical Therapy Plan Frequency and Duration Frequency of Treatment 1-2x/week Duration of Treatment 2 months Plan of Care Start Date 02/14/20 Plan of Care End Date 04/15/20 Therapeutic Interventions Therapeutic Interventions Aquatic Therapy,Balance Training,Gait Training,Home Exercise Program,Joint Mobilizations,Manual Therapy, Neuromuscular Re-education, Patient/Caregiver Education, Self-Care/Home Management,Soft Tissue Mobilization,Taping, Therapeutic Activities, Therapeutic Exercises Modalities Cold Pack/Ice Massage,Electric Stimulation,Hot Packs, Ultrasound Next Visit Focus/Plan Next Note Type Treatment Note Next Visit Plan work on R hip mobility & high level dynamic balance & PNF patterns for rolling & walking & work on resisted walking Plan of Care Dates Plan of Care Start Date 02/14/20 Plan of Care End Date 04/15/20 Electronically Signed by: Reina Riedr, PT 02/14/20 1608 Please Sign and Return: I have reviewed this Plan of Care and certify that the skilled therapy services above are required to meet the patient?s needs. Physician Signature Date Printed Name and Credentials Clinical Instructor Signature Printed Name and Credentials
--- NOTE | 2020-02-20 08:18 | PT.OTN ---
Current Diagnoses Spinal stenosis, lumbar region with neurogenic claudication (02/20/20) Difficulty in walking, not elsewhere classified (02/20/20) Abnormal posture (02/20/20) Weakness (02/20/20) Physical Therapy Treatment Note PT-OP-A Visit Information Start: 10/11/19 08:57 Freq: Status: Active Protocol: Document 02/20/20 07:39 [facility] (Rec: 02/20/20 08:18 [facility] [id number]) Out-Patient Physical Therapy Visit Information Visit Information Visit Type Treatment Note Visit Note 06/19 Visit Start Time 07:38 Visit Stop Time 08:26 Total Visit Minutes 48 Visit Number 27 Number of MOSAIC LAYER Visits 0 PT-OP-B Current Condition Start: 10/11/19 08:57 Freq: Status: Active Protocol: Document 10/11/19 08:58 [facility] (Rec: 10/11/19 10:36 [facility] [id number]) Current Condition History of Current Condition Onset Date chronic Current Complaints L>R LBP and R hip History of Current Condition Pt reprots his pain in LB and hip is worse recently and R hip bothers him especially when bending over especially to R side. Pt has been using walking sticks when he is going on walks and using a cane for around the yard, but no AD in the house. Pt notes he gets a sudden weakness sometimes in L LB where it feels like it gives out. Pt reports waking up with serious cramps in R leg and pain in R knee. Pt reports he can massage that pain away. Pt reports he notices he is a little wobbly sometimes. notes his posture is not great and notes he cannot keep up well when walking his . Reports walking too long can cause LBP. notes he has more trouble getting up and down from a chair especially in a lower chair. Prior Treatments and Tests PT which helps Treatment Goals Patient/Caregiver Goals find out which exercises to be doing, inc strength and balance PT-OP-C Subjective Start: 10/11/19 08:57 Freq: Status: Active Protocol: Document 02/20/20 07:39 [facility] (Rec: 02/20/20 08:18 [facility] [id number]) OP-PT Subjective Patient Comments Patient Comments Pt feels like back has been feeling better Patient Reported Progress Improving PT-OP-E Functional Tests Start: 10/11/19 08:57 Freq: Status: Active Protocol: Document 02/14/20 15:20 [facility] (Rec: 02/14/20 16:00 [facility] [id number]) Functional Tests Five Times Sit to Stand Test Score 18sec Functional Gait Assessment Score 26/30 PT-OP-G Mobility & Gait Start: 10/11/19 08:57 Freq: Status: Active Protocol: Document 10/11/19 08:58 [facility] (Rec: 10/11/19 10:36 [facility] [id number]) OP Gait Assessment Comments Gait Comments Pt has inc fwd flex at trunk, lat leaning and primarily leg walker PT-OP-J Posture/Palpation/Skin Start: 10/11/19 08:57 Freq: Status: Active Protocol: Document 12/13/19 13:52 [facility] (Rec: 12/13/19 14:33 [facility] [id number]) Posture Evaluation [facility] Postural Classification System Lumbar Protective Mechanism Left AP 3 Lumbar Protective Mechanism Right AP 2 Lumbar Protective Mechanism Left PA 2 Lumbar Protective Mechanism Right PA 2 PT-OP-L Special Tests Start: 10/11/19 08:57 Freq: Status: Active Protocol: Document 10/11/19 08:58 [facility] (Rec: 10/11/19 10:36 [facility] [id number]) Special Tests Lumbar Spine Special Tests Slump Test Results neg B Straight Leg Raise Test Results neg B HS tightness to about 40 deg hip flex PT-OP-M Strength Start: 10/11/19 08:57 Freq: Status: Active Protocol: Document 02/14/20 15:20 [facility] (Rec: 02/14/20 16:00 [facility] [id number]) Hip Strength Hip Manual Muscle Testing Left Flexion (L2) 4 Good Extension (S1) 4+ Good+ Abduction 4+ Good+ External Rotation 4+ Good+ Internal Rotation 5 Normal Right Flexion (L2) 4 Good Extension (S1) 4 Good Abduction 4 Good External Rotation 3+ Fair+ Internal Rotation 4 Good Comments very limited in ER ROM; pain IR & ext Knee Strength Knee Manual Muscle Testing Right Flexion (S2) 5 Normal Extension (L3) 5 Normal Left Flexion (S2) 5 Normal Extension (L3) 5 Normal Ankle/Foot Strength Ankle and Foot Manual Muscle Testing Right Dorsiflexion (L4) 5 Normal Plantarflexion (S1) 4 Good Comments 14 heel raises R Left Dorsiflexion (L4) 5 Normal Plantarflexion (S1) 4- Good- Comments 10 heel raises PT-OP-Q Treatments Start: 10/11/19 08:57 Freq: Status: Active Protocol: Document 02/20/20 07:39 [facility] (Rec: 02/20/20 08:18 [facility] [id number]) Cardio Equipment Recumbent Bicycle Duration (Minutes) 4 Resistance 12 Seat Position 12 Gym Equipment Shuttle Balance 1 Details red clips Reps/Duration w/head turns when fwd faced Comments fwd & side: WBOS & NBOS fwd: staggered stance B Therapeutic Exercises Standing Exercises 7 Standing Exercise Name sit to stand from 16 in step Side bilateral Reps/Minutes 2x5 Comments no hands Neuro Re-Education Treatment Balance Activities 5 Details toe taps to 12 in step Reps/Duration 15 B 4 Details SLS ball roll fwd/back B 2 Details 8 in step up with march Reps/Duration 10 B Comments rail required with RLE balance PT-OP-R Modalities Start: 10/11/19 08:57 Freq: Status: Active Protocol: Document 02/20/20 07:39 [facility] (Rec: 02/20/20 08:18 [facility] [id number]) Hot Pack/Cold Pack Treatment Cold Pack Location LS Patient Position Hooklying Treatment Duration (minutes) 10 PT-OP-T Assessment and Plan Start: 10/11/19 08:57 Freq: Status: Active Protocol: Document 02/20/20 07:39 [facility] (Rec: 02/20/20 08:18 [facility] [id number]) Physical Therapy Assessment Goals Five Impairment SLS-2 sec B Short Term Goal (STG) Pt will be able to do SLS 5 sec w/o LOB. STG Duration Prison Goal (LTG) Pt will be able to stand and feel safe when putting on underwear and pants. LTG Duration 04/15/20 Four Impairment ability to get up/down from chair 5x sit<>stand=22 sec Short Term Goal (STG) Pt will be able to do 5x sit to making department preparer 18 sec to show improved ability to get up/ down from chair. 11/15-still limited STG Duration achieved to 18 sec Floorleader Goal (LTG) Pt will be able to do 5x sit to making department preparer 13 sec to show improved ability to get up/ down from chair. 02/13-18 sec LTG Duration 04/15/20 Three Impairment FGA Prison Goal (LTG) Pt will score >25/30 on FGA to show low risk for falls. 11/15- 12/12- LTG Duration achieved Two Prison Goal (LTG) Pt will be able to bend over to put on shoes without inc pain. 11/15-pt reports pain is very minimal LTG Duration achieved One Impairment strength Short Term Goal (STG) Pt will be indep with HEP. STG Duration achieved Floorleader Goal (LTG) Pt will have 4+/5 LE strength B and 3/5 LPM in order to show improves stability in order to inc confidence with doing typical activities. 11/15-improving 12/12-increasing LTG Duration 04/15/20 Assessment Summary Assessment Pt was challenged by all single leg activities today. Signficiant difficulty especailly with step ups and difficulty with low sit to stands Physical Therapy Plan Frequency and Duration Frequency of Treatment 1-2x/week Duration of Treatment 2 months Plan of Care Start Date 02/14/20 Plan of Care End Date 04/15/20 Next Visit Focus/Plan Next Note Type Treatment Note Next Visit Plan work on SLS activities & terminal knee ext with hip ext
--- NOTE | 2020-02-27 08:17 | PT.OTN ---
Current Diagnoses Spinal stenosis, lumbar region with neurogenic claudication (02/27/20) Difficulty in walking, not elsewhere classified (02/27/20) Abnormal posture (02/27/20) Weakness (02/27/20) Physical Therapy Treatment Note PT-OP-A Visit Information Start: 10/11/19 08:57 Freq: Status: Active Protocol: Document 02/27/20 07:26 [facility] (Rec: 02/27/20 08:17 [facility] [id number]) Out-Patient Physical Therapy Visit Information Visit Information Visit Type Treatment Note Visit Note 07/17 Visit Start Time 07:31 Visit Stop Time 08:24 Total Visit Minutes 53 Visit Number 28 Number of SEED CORN PRODUCTION MANAGER Visits 0 PT-OP-B Current Condition Start: 10/11/19 08:57 Freq: Status: Active Protocol: Document 10/11/19 08:58 [facility] (Rec: 10/11/19 10:36 [facility] [id number]) Current Condition History of Current Condition Onset Date chronic Current Complaints L>R LBP and R hip History of Current Condition Pt reprots his pain in LB and hip is worse recently and R hip bothers him especially when bending over especially to R side. Pt has been using walking sticks when he is going on walks and using a cane for around the yard, but no AD in the house. Pt notes he gets a sudden weakness sometimes in L LB where it feels like it gives out. Pt reports waking up with serious cramps in R leg and pain in R knee. Pt reports he can massage that pain away. Pt reports he notices he is a little wobbly sometimes. notes his posture is not great and notes he cannot keep up well when walking his . Reports walking too long can cause LBP. notes he has more trouble getting up and down from a chair especially in a lower chair. Prior Treatments and Tests PT which helps Treatment Goals Patient/Caregiver Goals find out which exercises to be doing, inc strength and balance PT-OP-C Subjective Start: 10/11/19 08:57 Freq: Status: Active Protocol: Document 02/27/20 07:26 [facility] (Rec: 02/27/20 08:17 [facility] [id number]) OP-PT Subjective Patient Comments Patient Comments Pt reports he feels fine at the end of a slow day but a busy day when he has done a lot of chores around the house , he has some back soreness. Pt can go to bed and in the AM it feels better. Patient Reported Progress Improving PT-OP-E Functional Tests Start: 10/11/19 08:57 Freq: Status: Active Protocol: Document 02/14/20 15:20 [facility] (Rec: 02/14/20 16:00 [facility] [id number]) Functional Tests Five Times Sit to Stand Test Score 18sec Functional Gait Assessment Score 26/30 PT-OP-G Mobility & Gait Start: 10/11/19 08:57 Freq: Status: Active Protocol: Document 10/11/19 08:58 [facility] (Rec: 10/11/19 10:36 [facility] [id number]) OP Gait Assessment Comments Gait Comments Pt has inc fwd flex at trunk, lat leaning and primarily leg walker PT-OP-J Posture/Palpation/Skin Start: 10/11/19 08:57 Freq: Status: Active Protocol: Document 12/13/19 13:52 [facility] (Rec: 12/13/19 14:33 [facility] [id number]) Posture Evaluation [facility] Postural Classification System Lumbar Protective Mechanism Left AP 3 Lumbar Protective Mechanism Right AP 2 Lumbar Protective Mechanism Left PA 2 Lumbar Protective Mechanism Right PA 2 PT-OP-L Special Tests Start: 10/11/19 08:57 Freq: Status: Active Protocol: Document 10/11/19 08:58 [facility] (Rec: 10/11/19 10:36 [facility] [id number]) Special Tests Lumbar Spine Special Tests Slump Test Results neg B Straight Leg Raise Test Results neg B HS tightness to about 40 deg hip flex PT-OP-M Strength Start: 10/11/19 08:57 Freq: Status: Active Protocol: Document 02/14/20 15:20 [facility] (Rec: 02/14/20 16:00 [facility] [id number]) Hip Strength Hip Manual Muscle Testing Left Flexion (L2) 4 Good Extension (S1) 4+ Good+ Abduction 4+ Good+ External Rotation 4+ Good+ Internal Rotation 5 Normal Right Flexion (L2) 4 Good Extension (S1) 4 Good Abduction 4 Good External Rotation 3+ Fair+ Internal Rotation 4 Good Comments very limited in ER ROM; pain IR & ext Knee Strength Knee Manual Muscle Testing Right Flexion (S2) 5 Normal Extension (L3) 5 Normal Left Flexion (S2) 5 Normal Extension (L3) 5 Normal Ankle/Foot Strength Ankle and Foot Manual Muscle Testing Right Dorsiflexion (L4) 5 Normal Plantarflexion (S1) 4 Good Comments 14 heel raises R Left Dorsiflexion (L4) 5 Normal Plantarflexion (S1) 4- Good- Comments 10 heel raises PT-OP-Q Treatments Start: 10/11/19 08:57 Freq: Status: Active Protocol: Document 02/27/20 07:26 [facility] (Rec: 02/27/20 08:17 [facility] [id number]) Cardio Equipment Recumbent Bicycle Duration (Minutes) 5 Resistance 12 Seat Position 12 Gym Equipment Shuttle Balance 1 Details red clips Reps/Duration hitting ballon in all positions but side NBOS Comments fwd & side: WBOS & NBOS fwd: staggered stance B Therapeutic Exercises Standing Exercises 7 Standing Exercise Name sit to stand from 16 in stepx2 then 10 from green chair Side bilateral Comments no hands 6 Standing Exercise Name wall posture w/ arm ext Side bilateral Reps/Minutes 1 min 5 Standing Exercise Name doorway pec stretch Side bilateral Reps/Minutes 40 sec Manual Therapy Treatment Soft Tissue Mobilization 4 Body Location QL &ES, ant sup iliac crest, upper glutes R Mobilization Type Rolling,Sustained Pressure Intensity/Depth Moderate Body Position Sidelying Neuro Re-Education Treatment Balance Activities 5 Details toe taps to 16 in step Reps/Duration 10 B 4 Details SLS ball roll fwd/back B 2 Details 8 in step up with march Reps/Duration 10 B Comments rail required with RLE balance PT-OP-R Modalities Start: 10/11/19 08:57 Freq: Status: Active Protocol: Document 02/27/20 07:26 [facility] (Rec: 02/27/20 08:17 [facility] [id number]) Hot Pack/Cold Pack Treatment Cold Pack Location LS Patient Position Hooklying Treatment Duration (minutes) 10 PT-OP-T Assessment and Plan Start: 10/11/19 08:57 Freq: Status: Active Protocol: Document 02/27/20 07:26 [facility] (Rec: 02/27/20 08:17 [facility] [id number]) Physical Therapy Assessment Goals Five Impairment SLS-2 sec B Short Term Goal (STG) Pt will be able to do SLS 5 sec w/o LOB. STG Duration Lacquer Mixer Goal (LTG) Pt will be able to stand and feel safe when putting on underwear and pants. LTG Duration 04/15/20 Four Impairment ability to get up/down from chair 5x sit<>stand=22 sec Short Term Goal (STG) Pt will be able to do 5x sit to gin feeder 18 sec to show improved ability to get up/ down from chair. 11/15-still limited STG Duration achieved to 18 sec Penitentiary Goal (LTG) Pt will be able to do 5x sit to gin feeder 13 sec to show improved ability to get up/ down from chair. 02/13-18 sec LTG Duration 04/15/20 Three Impairment FGA Lacquer Mixer Goal (LTG) Pt will score >25/30 on FGA to show low risk for falls. 11/15- 12/12- LTG Duration achieved Two Lacquer Mixer Goal (LTG) Pt will be able to bend over to put on shoes without inc pain. 11/15-pt reports pain is very minimal LTG Duration achieved One Impairment strength Short Term Goal (STG) Pt will be indep with HEP. STG Duration achieved Penitentiary Goal (LTG) Pt will have 4+/5 LE strength B and 3/5 LPM in order to show improves stability in order to inc confidence with doing typical activities. 11/15-improving 12/12-increasing LTG Duration 04/15/20 Assessment Summary Assessment Pt cont to require cueing for posutre throughout session. He was more challenged by sit to stands so had to change ot 18 in surfaces today. He cont to be challenged by single leg activities Physical Therapy Plan Next Visit Focus/Plan Next Note Type Treatment Note Next Visit Plan work on SLS activities & terminal knee ext with hip ext
--- NOTE | 2020-03-05 08:19 | PT.OTN ---
Current Diagnoses Spinal stenosis, lumbar region with neurogenic claudication (03/05/20) Difficulty in walking, not elsewhere classified (03/05/20) Abnormal posture (03/05/20) Weakness (03/05/20) Physical Therapy Treatment Note PT-OP-A Visit Information Start: 10/11/19 08:57 Freq: Status: Active Protocol: Document 03/05/20 07:33 [facility] (Rec: 03/05/20 08:19 [facility] [id number]) Out-Patient Physical Therapy Visit Information Visit Information Visit Type Treatment Note Visit Note 08/17 Visit Start Time 07:30 Visit Stop Time 08:27 Total Visit Minutes 52 Visit Number 29 Number of WOOD FLOOR REFINISHER Visits 0 PT-OP-B Current Condition Start: 10/11/19 08:57 Freq: Status: Active Protocol: Document 10/11/19 08:58 [facility] (Rec: 10/11/19 10:36 [facility] [id number]) Current Condition History of Current Condition Onset Date chronic Current Complaints L>R LBP and R hip History of Current Condition Pt reprots his pain in LB and hip is worse recently and R hip bothers him especially when bending over especially to R side. Pt has been using walking sticks when he is going on walks and using a cane for around the yard, but no AD in the house. Pt notes he gets a sudden weakness sometimes in L LB where it feels like it gives out. Pt reports waking up with serious cramps in R leg and pain in R knee. Pt reports he can massage that pain away. Pt reports he notices he is a little wobbly sometimes. notes his posture is not great and notes he cannot keep up well when walking his . Reports walking too long can cause LBP. notes he has more trouble getting up and down from a chair especially in a lower chair. Prior Treatments and Tests PT which helps Treatment Goals Patient/Caregiver Goals find out which exercises to be doing, inc strength and balance PT-OP-C Subjective Start: 10/11/19 08:57 Freq: Status: Active Protocol: Document 03/05/20 07:33 [facility] (Rec: 03/05/20 08:19 [facility] [id number]) OP-PT Subjective Patient Comments Patient Comments Pt feels like he is making good improvement with mobility and has been able to walk hills at home. Patient Reported Progress Improving PT-OP-E Functional Tests Start: 10/11/19 08:57 Freq: Status: Active Protocol: Document 02/14/20 15:20 [facility] (Rec: 02/14/20 16:00 [facility] [id number]) Functional Tests Five Times Sit to Stand Test Score 18sec Functional Gait Assessment Score 26/30 PT-OP-G Mobility & Gait Start: 10/11/19 08:57 Freq: Status: Active Protocol: Document 10/11/19 08:58 [facility] (Rec: 10/11/19 10:36 [facility] [id number]) OP Gait Assessment Comments Gait Comments Pt has inc fwd flex at trunk, lat leaning and primarily leg walker PT-OP-J Posture/Palpation/Skin Start: 10/11/19 08:57 Freq: Status: Active Protocol: Document 12/13/19 13:52 [facility] (Rec: 12/13/19 14:33 [facility] [id number]) Posture Evaluation [facility] Postural Classification System Lumbar Protective Mechanism Left AP 3 Lumbar Protective Mechanism Right AP 2 Lumbar Protective Mechanism Left PA 2 Lumbar Protective Mechanism Right PA 2 PT-OP-L Special Tests Start: 10/11/19 08:57 Freq: Status: Active Protocol: Document 10/11/19 08:58 [facility] (Rec: 10/11/19 10:36 [facility] [id number]) Special Tests Lumbar Spine Special Tests Slump Test Results neg B Straight Leg Raise Test Results neg B HS tightness to about 40 deg hip flex PT-OP-M Strength Start: 10/11/19 08:57 Freq: Status: Active Protocol: Document 02/14/20 15:20 [facility] (Rec: 02/14/20 16:00 [facility] [id number]) Hip Strength Hip Manual Muscle Testing Left Flexion (L2) 4 Good Extension (S1) 4+ Good+ Abduction 4+ Good+ External Rotation 4+ Good+ Internal Rotation 5 Normal Right Flexion (L2) 4 Good Extension (S1) 4 Good Abduction 4 Good External Rotation 3+ Fair+ Internal Rotation 4 Good Comments very limited in ER ROM; pain IR & ext Knee Strength Knee Manual Muscle Testing Right Flexion (S2) 5 Normal Extension (L3) 5 Normal Left Flexion (S2) 5 Normal Extension (L3) 5 Normal Ankle/Foot Strength Ankle and Foot Manual Muscle Testing Right Dorsiflexion (L4) 5 Normal Plantarflexion (S1) 4 Good Comments 14 heel raises R Left Dorsiflexion (L4) 5 Normal Plantarflexion (S1) 4- Good- Comments 10 heel raises PT-OP-Q Treatments Start: 10/11/19 08:57 Freq: Status: Active Protocol: Document 03/05/20 07:33 [facility] (Rec: 03/05/20 08:19 [facility] [id number]) Cardio Equipment Recumbent Bicycle Duration (Minutes) 5 Resistance 13 Seat Position 12 Gym Equipment Shuttle Balance 1 Details red clips Reps/Duration w/head turns Comments fwd & side: WBOS & NBOS fwd: staggered stance B Therapeutic Exercises Standing Exercises 7 Standing Exercise Name sit to stand from 16 in stepx5 then 10 from18 in green chair Side bilateral Comments no hands 6 Standing Exercise Name wall posture w/ arm ext Side bilateral Reps/Minutes 1 min 5 Standing Exercise Name doorway pec stretch Side bilateral Reps/Minutes 40 sec 4 Standing Exercise Name TKE Side bilateral Equipment Used L4 Reps/Minutes 30 Manual Therapy Treatment Soft Tissue Mobilization 3 Body Location superior glutes & superior sacral border Mobilization Type Rolling,Sustained Pressure Intensity/Depth Moderate Body Position Sidelying Neuro Re-Education Treatment Balance Activities 5 Details toe taps to 16 in step Reps/Duration 10 B 4 Details SLS ball roll circles B 2 Details 8 in step up with july Reps/Duration 10 B Comments rail required with RLE balance PT-OP-R Modalities Start: 10/11/19 08:57 Freq: Status: Active Protocol: Document 03/05/20 07:33 [facility] (Rec: 03/05/20 08:19 [facility] [id number]) Hot Pack/Cold Pack Treatment Cold Pack Location LS Patient Position Hooklying Treatment Duration (minutes) 10 PT-OP-T Assessment and Plan Start: 10/11/19 08:57 Freq: Status: Active Protocol: Document 03/05/20 07:33 [facility] (Rec: 03/05/20 08:19 [facility] [id number]) Physical Therapy Assessment Goals Five Impairment SLS-2 sec B Short Term Goal (STG) Pt will be able to do SLS 5 sec w/o LOB. STG Duration Skilled Nursing Goal (LTG) Pt will be able to stand and feel safe when putting on underwear and pants. LTG Duration 04/15/20 Four Impairment ability to get up/down from chair 5x sit<>stand=22 sec Short Term Goal (STG) Pt will be able to do 5x sit to landscaping specialist 18 sec to show improved ability to get up/ down from chair. 11/15-still limited STG Duration achieved to 18 sec Hand Lacer Goal (LTG) Pt will be able to do 5x sit to landscaping specialist 13 sec to show improved ability to get up/ down from chair. 02/13-18 sec LTG Duration 04/15/20 Three Impairment FGA Hand Lacer Goal (LTG) Pt will score >25/30 on FGA to show low risk for falls. 11/15- 12/12- LTG Duration achieved Two Skilled Nursing Goal (LTG) Pt will be able to bend over to put on shoes without inc pain. 11/15-pt reports pain is very minimal LTG Duration achieved One Impairment strength Short Term Goal (STG) Pt will be indep with HEP. STG Duration achieved Skilled Nursing Goal (LTG) Pt will have 4+/5 LE strength B and 3/5 LPM in order to show improves stability in order to inc confidence with doing typical activities. 11/15-improving 12/12-increasing LTG Duration 04/15/20 Assessment Summary Assessment Focus and cueing for knee ext in SLS and pt showed improvement with ability to control SLS position. Pt improvingw ith balance on blaance board Physical Therapy Plan Frequency and Duration Frequency of Treatment 1-2x/week Duration of Treatment 2 months Plan of Care Start Date 02/14/20 Plan of Care End Date 04/15/20 Next Visit Focus/Plan Next Note Type Treatment Note Next Visit Plan work on SLS activities & terminal knee ext with hip ext
--- NOTE | 2020-03-12 15:15 | PT.OTN ---
Current Diagnoses Spinal stenosis, lumbar region with neurogenic claudication (03/12/20) Difficulty in walking, not elsewhere classified (03/12/20) Abnormal posture (03/12/20) Weakness (03/12/20) Physical Therapy Treatment Note PT-OP-A Visit Information Start: 10/11/19 08:57 Freq: Status: Active Protocol: Document 03/12/20 14:23 [facility] (Rec: 03/12/20 15:15 [facility] [id number]) Out-Patient Physical Therapy Visit Information Visit Information Visit Type Treatment Note Visit Note 09/16 Visit Start Time 14:22 Visit Stop Time 15:17 Total Visit Minutes 55 Visit Number 30 Number of CAT SCAN TECH Visits 0 PT-OP-B Current Condition Start: 10/11/19 08:57 Freq: Status: Active Protocol: Document 10/11/19 08:58 [facility] (Rec: 10/11/19 10:36 [facility] [id number]) Current Condition History of Current Condition Onset Date chronic Current Complaints L>R LBP and R hip History of Current Condition Pt reprots his pain in LB and hip is worse recently and R hip bothers him especially when bending over especially to R side. Pt has been using walking sticks when he is going on walks and using a cane for around the yard, but no AD in the house. Pt notes he gets a sudden weakness sometimes in L LB where it feels like it gives out. Pt reports waking up with serious cramps in R leg and pain in R knee. Pt reports he can massage that pain away. Pt reports he notices he is a little wobbly sometimes. notes his posture is not great and notes he cannot keep up well when walking his . Reports walking too long can cause LBP. notes he has more trouble getting up and down from a chair especially in a lower chair. Prior Treatments and Tests PT which helps Treatment Goals Patient/Caregiver Goals find out which exercises to be doing, inc strength and balance PT-OP-C Subjective Start: 10/11/19 08:57 Freq: Status: Active Protocol: Document 03/12/20 14:23 [facility] (Rec: 03/12/20 15:15 [facility] [id number]) OP-PT Subjective Patient Comments Patient Comments Pt reports pain has mostly gone away. He feels like manual work really helps him. Sometimes after walks, he feels it again,b ut it goes away after laying down & goign to bed. Patient Reported Progress Improving PT-OP-E Functional Tests Start: 10/11/19 08:57 Freq: Status: Active Protocol: Document 02/14/20 15:20 [facility] (Rec: 02/14/20 16:00 [facility] [id number]) Functional Tests Five Times Sit to Stand Test Score 18sec Functional Gait Assessment Score 26/30 PT-OP-G Mobility & Gait Start: 10/11/19 08:57 Freq: Status: Active Protocol: Document 10/11/19 08:58 [facility] (Rec: 10/11/19 10:36 [facility] [id number]) OP Gait Assessment Comments Gait Comments Pt has inc fwd flex at trunk, lat leaning and primarily leg walker PT-OP-J Posture/Palpation/Skin Start: 10/11/19 08:57 Freq: Status: Active Protocol: Document 12/13/19 13:52 [facility] (Rec: 12/13/19 14:33 [facility] [id number]) Posture Evaluation [facility] Postural Classification System Lumbar Protective Mechanism Left AP 3 Lumbar Protective Mechanism Right AP 2 Lumbar Protective Mechanism Left PA 2 Lumbar Protective Mechanism Right PA 2 PT-OP-L Special Tests Start: 10/11/19 08:57 Freq: Status: Active Protocol: Document 10/11/19 08:58 [facility] (Rec: 10/11/19 10:36 [facility] [id number]) Special Tests Lumbar Spine Special Tests Slump Test Results neg B Straight Leg Raise Test Results neg B HS tightness to about 40 deg hip flex PT-OP-M Strength Start: 10/11/19 08:57 Freq: Status: Active Protocol: Document 02/14/20 15:20 [facility] (Rec: 02/14/20 16:00 [facility] [id number]) Hip Strength Hip Manual Muscle Testing Left Flexion (L2) 4 Good Extension (S1) 4+ Good+ Abduction 4+ Good+ External Rotation 4+ Good+ Internal Rotation 5 Normal Right Flexion (L2) 4 Good Extension (S1) 4 Good Abduction 4 Good External Rotation 3+ Fair+ Internal Rotation 4 Good Comments very limited in ER ROM; pain IR & ext Knee Strength Knee Manual Muscle Testing Right Flexion (S2) 5 Normal Extension (L3) 5 Normal Left Flexion (S2) 5 Normal Extension (L3) 5 Normal Ankle/Foot Strength Ankle and Foot Manual Muscle Testing Right Dorsiflexion (L4) 5 Normal Plantarflexion (S1) 4 Good Comments 14 heel raises R Left Dorsiflexion (L4) 5 Normal Plantarflexion (S1) 4- Good- Comments 10 heel raises PT-OP-Q Treatments Start: 10/11/19 08:57 Freq: Status: Active Protocol: Document 03/12/20 14:23 [facility] (Rec: 03/12/20 15:15 [facility] [id number]) Cardio Equipment Recumbent Bicycle Duration (Minutes) 5 Resistance 13 Seat Position 12 Gym Equipment Shuttle Balance 1 Details red clips Reps/Duration w/head turns Comments fwd & side: WBOS & NBOS fwd: staggered stance B Therapeutic Exercises Standing Exercises 7 Standing Exercise Name sit to stand from 16 in stepx5 then 10 from18 in green chair Side bilateral Comments no hands 6 Standing Exercise Name wall posture w/ arm ext Side bilateral Reps/Minutes 1 min 4 Standing Exercise Name TKE Side bilateral Equipment Used L4 Reps/Minutes 30 Manual Therapy Treatment Soft Tissue Mobilization 4 Body Location QL &ES, ant sup iliac crest, upper glutes R Mobilization Type Rolling,Sustained Pressure Intensity/Depth Moderate Body Position Sidelying Neuro Re-Education Treatment Balance Activities 5 Details toe taps to 16 in step Reps/Duration 10 B 4 Details SLS ball roll circles B 2 Details 8 in step up with march Reps/Duration 10 B Comments rail required with RLE balance PT-OP-R Modalities Start: 10/11/19 08:57 Freq: Status: Active Protocol: Document 03/12/20 14:23 [facility] (Rec: 03/12/20 15:15 [facility] [id number]) Hot Pack/Cold Pack Treatment Cold Pack Location LS Patient Position Hooklying Treatment Duration (minutes) 10 PT-OP-T Assessment and Plan Start: 10/11/19 08:57 Freq: Status: Active Protocol: Document 03/12/20 14:23 [facility] (Rec: 03/12/20 15:15 [facility] [id number]) Physical Therapy Assessment Goals Five Impairment SLS-2 sec B Short Term Goal (STG) Pt will be able to do SLS 5 sec w/o LOB. STG Duration Penitentiary Goal (LTG) Pt will be able to stand and feel safe when putting on underwear and pants. LTG Duration 04/15/20 Four Impairment ability to get up/down from chair 5x sit<>stand=22 sec Short Term Goal (STG) Pt will be able to do 5x sit to developing machine tender 18 sec to show improved ability to get up/ down from chair. 11/15-still limited STG Duration achieved to 18 sec Senior Principal Process Engineer Goal (LTG) Pt will be able to do 5x sit to developing machine tender 13 sec to show improved ability to get up/ down from chair. 02/13-18 sec LTG Duration 04/15/20 Three Impairment FGA Senior Principal Process Engineer Goal (LTG) Pt will score >25/30 on FGA to show low risk for falls. 11/15- 12/12- LTG Duration achieved Two Penitentiary Goal (LTG) Pt will be able to bend over to put on shoes without inc pain. 11/15-pt reports pain is very minimal LTG Duration achieved One Impairment strength Short Term Goal (STG) Pt will be indep with HEP. STG Duration achieved Penitentiary Goal (LTG) Pt will have 4+/5 LE strength B and 3/5 LPM in order to show improves stability in order to inc confidence with doing typical activities. 11/15-improving 12/12-increasing LTG Duration 04/15/20 Assessment Summary Assessment Pt is improving with SLS but does still requie cueing for posture. He did better with TKE but did erquie cueing to slow down. Physical Therapy Plan Frequency and Duration Frequency of Treatment 1-2x/week Duration of Treatment 2 months Plan of Care Start Date 02/14/20 Plan of Care End Date 04/15/20 Next Visit Focus/Plan Next Note Type Treatment Note Next Visit Plan work on SLS activities & terminal knee ext with hip ext
--- NOTE | 2020-03-18 13:51 | PT.OTN ---
Current Diagnoses Spinal stenosis, lumbar region with neurogenic claudication (03/18/20) Difficulty in walking, not elsewhere classified (03/18/20) Abnormal posture (03/18/20) Weakness (03/18/20) Physical Therapy Treatment Note PT-OP-A Visit Information Start: 10/11/19 08:57 Freq: Status: Active Protocol: Document 03/18/20 13:01 [facility] (Rec: 03/18/20 13:51 [facility] [id number]) Out-Patient Physical Therapy Visit Information Visit Information Visit Type Treatment Note Visit Note 10/17 Visit Start Time 13:15 Visit Stop Time 13:55 Total Visit Minutes 40 Visit Number 31 Number of MISSILE INSPECTOR Visits 0 PT-OP-B Current Condition Start: 10/11/19 08:57 Freq: Status: Active Protocol: Document 10/11/19 08:58 [facility] (Rec: 10/11/19 10:36 [facility] [id number]) Current Condition History of Current Condition Onset Date chronic Current Complaints L>R LBP and R hip History of Current Condition Pt reprots his pain in LB and hip is worse recently and R hip bothers him especially when bending over especially to R side. Pt has been using walking sticks when he is going on walks and using a cane for around the yard, but no AD in the house. Pt notes he gets a sudden weakness sometimes in L LB where it feels like it gives out. Pt reports waking up with serious cramps in R leg and pain in R knee. Pt reports he can massage that pain away. Pt reports he notices he is a little wobbly sometimes. notes his posture is not great and notes he cannot keep up well when walking his . Reports walking too long can cause LBP. notes he has more trouble getting up and down from a chair especially in a lower chair. Prior Treatments and Tests PT which helps Treatment Goals Patient/Caregiver Goals find out which exercises to be doing, inc strength and balance PT-OP-C Subjective Start: 10/11/19 08:57 Freq: Status: Active Protocol: Document 03/18/20 13:01 [facility] (Rec: 03/18/20 13:51 [facility] [id number]) OP-PT Subjective Patient Comments Patient Comments Pt reports he does not feel like his pain is stopping him from doing anything PT-OP-E Functional Tests Start: 10/11/19 08:57 Freq: Status: Active Protocol: Document 02/14/20 15:20 [facility] (Rec: 02/14/20 16:00 [facility] [id number]) Functional Tests Five Times Sit to Stand Test Score 18sec Functional Gait Assessment Score 26/30 PT-OP-G Mobility & Gait Start: 10/11/19 08:57 Freq: Status: Active Protocol: Document 10/11/19 08:58 [facility] (Rec: 10/11/19 10:36 [facility] [id number]) OP Gait Assessment Comments Gait Comments Pt has inc fwd flex at trunk, lat leaning and primarily leg walker PT-OP-J Posture/Palpation/Skin Start: 10/11/19 08:57 Freq: Status: Active Protocol: Document 12/13/19 13:52 [facility] (Rec: 12/13/19 14:33 [facility] [id number]) Posture Evaluation [facility] Postural Classification System Lumbar Protective Mechanism Left AP 3 Lumbar Protective Mechanism Right AP 2 Lumbar Protective Mechanism Left PA 2 Lumbar Protective Mechanism Right PA 2 PT-OP-L Special Tests Start: 10/11/19 08:57 Freq: Status: Active Protocol: Document 10/11/19 08:58 [facility] (Rec: 10/11/19 10:36 [facility] [id number]) Special Tests Lumbar Spine Special Tests Slump Test Results neg B Straight Leg Raise Test Results neg B HS tightness to about 40 deg hip flex PT-OP-M Strength Start: 10/11/19 08:57 Freq: Status: Active Protocol: Document 02/14/20 15:20 [facility] (Rec: 02/14/20 16:00 [facility] [id number]) Hip Strength Hip Manual Muscle Testing Left Flexion (L2) 4 Good Extension (S1) 4+ Good+ Abduction 4+ Good+ External Rotation 4+ Good+ Internal Rotation 5 Normal Right Flexion (L2) 4 Good Extension (S1) 4 Good Abduction 4 Good External Rotation 3+ Fair+ Internal Rotation 4 Good Comments very limited in ER ROM; pain IR & ext Knee Strength Knee Manual Muscle Testing Right Flexion (S2) 5 Normal Extension (L3) 5 Normal Left Flexion (S2) 5 Normal Extension (L3) 5 Normal Ankle/Foot Strength Ankle and Foot Manual Muscle Testing Right Dorsiflexion (L4) 5 Normal Plantarflexion (S1) 4 Good Comments 14 heel raises R Left Dorsiflexion (L4) 5 Normal Plantarflexion (S1) 4- Good- Comments 10 heel raises PT-OP-Q Treatments Start: 10/11/19 08:57 Freq: Status: Active Protocol: Document 03/18/20 13:01 [facility] (Rec: 03/18/20 13:51 [facility] [id number]) Gym Equipment Shuttle Balance 1 Details red clips Reps/Duration w/head turns Comments fwd & side: WBOS & NBOS Therapeutic Exercises Standing Exercises 7 Standing Exercise Name sit to stand from 16 in stepx3 then 5 from18 in green chair Side bilateral Comments no hands 4 Standing Exercise Name TKE Side bilateral Equipment Used L4 Reps/Minutes 30 Neuro Re-Education Treatment Balance Activities 5 Details toe taps to 16 in step Reps/Duration 10 B 4 Details SLS ball roll circles B 2 Details 8 in step up with march Reps/Duration 10 B Comments rail required with RLE balance 3 Details mini lunge to bosu Reps/Duration 10 B PT-OP-R Modalities Start: 10/11/19 08:57 Freq: Status: Active Protocol: Document 03/18/20 13:01 [facility] (Rec: 03/18/20 13:51 [facility] [id number]) Hot Pack/Cold Pack Treatment Cold Pack Location LS Patient Position Hooklying Treatment Duration (minutes) 10 PT-OP-T Assessment and Plan Start: 10/11/19 08:57 Freq: Status: Active Protocol: Document 03/18/20 13:01 [facility] (Rec: 03/18/20 13:51 [facility] [id number]) Physical Therapy Assessment Goals Five Impairment SLS-2 sec B Short Term Goal (STG) Pt will be able to do SLS 5 sec w/o LOB. STG Duration Copy Messenger Goal (LTG) Pt will be able to stand and feel safe when putting on underwear and pants. LTG Duration 04/15/20 Four Impairment ability to get up/down from chair 5x sit<>stand=22 sec Short Term Goal (STG) Pt will be able to do 5x sit to snowboarding instructor 18 sec to show improved ability to get up/ down from chair. 11/15-still limited STG Duration achieved to 18 sec Longterm Goal (LTG) Pt will be able to do 5x sit to snowboarding instructor 13 sec to show improved ability to get up/ down from chair. 10/7-18 sec LTG Duration 04/15/20 Three Impairment FGA Longterm Goal (LTG) Pt will score >25/30 on FGA to show low risk for falls. 11/15- 12/12-24/ LTG Duration achieved Two Longterm Goal (LTG) Pt will be able to bend over to put on shoes without inc pain. 11/15-pt reports pain is very minimal LTG Duration achieved One Impairment strength Short Term Goal (STG) Pt will be indep with HEP. STG Duration achieved Copy Messenger Goal (LTG) Pt will have 4+/5 LE strength B and 3/5 LPM in order to show improves stability in order to inc confidence with doing typical activities. 11/15-improving 12/12-increasing LTG Duration 04/15/20 Assessment Summary Assessment Pt showed more stability with head turns on balance board and with SLS activities today. He fatigued wuicker with sit to stands but did do all other exercises prior which may be why Physical Therapy Plan Frequency and Duration Frequency of Treatment 1-2x/week Duration of Treatment 2 months Plan of Care Start Date 02/14/20 Plan of Care End Date 04/15/20 Next Visit Focus/Plan Next Note Type Treatment Note Next Visit Plan work on SLS activities & terminal knee ext with hip ext
--- NOTE | 2020-04-02 09:03 | PT.OTN ---
Current Diagnoses Spinal stenosis, lumbar region with neurogenic claudication (04/02/20) Difficulty in walking, not elsewhere classified (04/02/20) Abnormal posture (04/02/20) Weakness (04/02/20) Physical Therapy Treatment Note PT-OP-A Visit Information Start: 10/11/19 08:57 Freq: Status: Active Protocol: Document 04/02/20 08:16 [facility] (Rec: 04/02/20 09:03 [facility] [id number]) Out-Patient Physical Therapy Visit Information Visit Information Visit Type Treatment Note Visit Note 11/16 Visit Start Time 08:14 Visit Stop Time 09:09 Total Visit Minutes 55 Visit Number 32 Number of FEEDER DRIVER Visits 0 PT-OP-B Current Condition Start: 10/11/19 08:57 Freq: Status: Active Protocol: Document 10/11/19 08:58 [facility] (Rec: 10/11/19 10:36 [facility] [id number]) Current Condition History of Current Condition Onset Date chronic Current Complaints L>R LBP and R hip History of Current Condition Pt reprots his pain in LB and hip is worse recently and R hip bothers him especially when bending over especially to R side. Pt has been using walking sticks when he is going on walks and using a cane for around the yard, but no AD in the house. Pt notes he gets a sudden weakness sometimes in L LB where it feels like it gives out. Pt reports waking up with serious cramps in R leg and pain in R knee. Pt reports he can massage that pain away. Pt reports he notices he is a little wobbly sometimes. notes his posture is not great and notes he cannot keep up well when walking his . Reports walking too long can cause LBP. notes he has more trouble getting up and down from a chair especially in a lower chair. Prior Treatments and Tests PT which helps Treatment Goals Patient/Caregiver Goals find out which exercises to be doing, inc strength and balance PT-OP-C Subjective Start: 10/11/19 08:57 Freq: Status: Active Protocol: Document 04/02/20 08:16 [facility] (Rec: 04/02/20 09:03 [facility] [id number]) OP-PT Subjective Patient Comments Patient Comments Pt reports every now and then his back gets tight and he has to put his hadns on the counter to stretch. If he lays down, it goes away. He doesn' t wake up from it. PT-OP-E Functional Tests Start: 10/11/19 08:57 Freq: Status: Active Protocol: Document 02/14/20 15:20 [facility] (Rec: 02/14/20 16:00 [facility] [id number]) Functional Tests Five Times Sit to Stand Test Score 18sec Functional Gait Assessment Score 26/30 PT-OP-G Mobility & Gait Start: 10/11/19 08:57 Freq: Status: Active Protocol: Document 10/11/19 08:58 [facility] (Rec: 10/11/19 10:36 [facility] [id number]) OP Gait Assessment Comments Gait Comments Pt has inc fwd flex at trunk, lat leaning and primarily leg walker PT-OP-J Posture/Palpation/Skin Start: 10/11/19 08:57 Freq: Status: Active Protocol: Document 12/13/19 13:52 [facility] (Rec: 12/13/19 14:33 [facility] [id number]) Posture Evaluation [facility] Postural Classification System Lumbar Protective Mechanism Left AP 3 Lumbar Protective Mechanism Right AP 2 Lumbar Protective Mechanism Left PA 2 Lumbar Protective Mechanism Right PA 2 PT-OP-L Special Tests Start: 10/11/19 08:57 Freq: Status: Active Protocol: Document 10/11/19 08:58 [facility] (Rec: 10/11/19 10:36 [facility] [id number]) Special Tests Lumbar Spine Special Tests Slump Test Results neg B Straight Leg Raise Test Results neg B HS tightness to about 40 deg hip flex PT-OP-M Strength Start: 10/11/19 08:57 Freq: Status: Active Protocol: Document 02/14/20 15:20 [facility] (Rec: 02/14/20 16:00 [facility] [id number]) Hip Strength Hip Manual Muscle Testing Left Flexion (L2) 4 Good Extension (S1) 4+ Good+ Abduction 4+ Good+ External Rotation 4+ Good+ Internal Rotation 5 Normal Right Flexion (L2) 4 Good Extension (S1) 4 Good Abduction 4 Good External Rotation 3+ Fair+ Internal Rotation 4 Good Comments very limited in ER ROM; pain IR & ext Knee Strength Knee Manual Muscle Testing Right Flexion (S2) 5 Normal Extension (L3) 5 Normal Left Flexion (S2) 5 Normal Extension (L3) 5 Normal Ankle/Foot Strength Ankle and Foot Manual Muscle Testing Right Dorsiflexion (L4) 5 Normal Plantarflexion (S1) 4 Good Comments 14 heel raises R Left Dorsiflexion (L4) 5 Normal Plantarflexion (S1) 4- Good- Comments 10 heel raises PT-OP-Q Treatments Start: 10/11/19 08:57 Freq: Status: Active Protocol: Document 04/02/20 08:16 [facility] (Rec: 04/02/20 09:03 [facility] [id number]) Cardio Equipment Recumbent Bicycle Duration (Minutes) 5 Resistance 13 Seat Position 12 Gym Equipment Shuttle Balance 1 Details red clips Reps/Duration w/head turns Comments fwd & side: WBOS & NBOS fwd: staggered stance B Therapeutic Exercises Standing Exercises 7 Standing Exercise Name sit to stand from 16 in stepx5 then 10 from18 in geen chair Side bilateral Comments no hands 6 Standing Exercise Name wall posture w/ arm ext Side bilateral Reps/Minutes 1 min 5 Standing Exercise Name hip flexor stretch Side bilateral Reps/Minutes 30 sec 4 Standing Exercise Name TKE Side bilateral Equipment Used L4 Reps/Minutes 30 Manual Therapy Treatment Soft Tissue Mobilization 4 Body Location QL &ES, ant sup iliac crest, upper glutes R Mobilization Type Rolling,Sustained Pressure Intensity/Depth Moderate Body Position Sidelying Neuro Re-Education Treatment Balance Activities 5 Details toe taps to 16 in step Equipment 5# ankle wts B Reps/Duration 15 B 4 Comments 1. SLS ball roll circles B 2. SLS trials 2 Details 8 in step up with july Reps/Duration 10 B Comments rail required with RLE balance 3 Details mini lunge to bosu Reps/Duration 10 B PT-OP-R Modalities Start: 10/11/19 08:57 Freq: Status: Active Protocol: Document 04/02/20 08:16 [facility] (Rec: 04/02/20 09:03 [facility] [id number]) Hot Pack/Cold Pack Treatment Cold Pack Location LS Patient Position Hooklying Treatment Duration (minutes) 10 PT-OP-T Assessment and Plan Start: 10/11/19 08:57 Freq: Status: Active Protocol: Document 04/02/20 08:16 [facility] (Rec: 04/02/20 09:03 [facility] [id number]) Physical Therapy Assessment Goals Five Impairment SLS-2 sec B Short Term Goal (STG) Pt will be able to do SLS 5 sec w/o LOB. STG Duration Residential Goal (LTG) Pt will be able to stand and feel safe when putting on underwear and pants. LTG Duration 04/15/20 Four Impairment ability to get up/down from chair 5x sit<>stand=22 sec Short Term Goal (STG) Pt will be able to do 5x sit to managing broker 18 sec to show improved ability to get up/ down from chair. 11/15-still limited STG Duration achieved to 18 sec Cigar Packer And Shader Goal (LTG) Pt will be able to do 5x sit to managing broker 13 sec to show improved ability to get up/ down from chair. 02/13-18 sec LTG Duration 04/15/20 Three Impairment FGA Residential Goal (LTG) Pt will score >25/30 on FGA to show low risk for falls. 11/15- 12/12- LTG Duration achieved Two Cigar Packer And Shader Goal (LTG) Pt will be able to bend over to put on shoes without inc pain. 11/15-pt reports pain is very minimal LTG Duration achieved One Impairment strength Short Term Goal (STG) Pt will be indep with HEP. STG Duration achieved Residential Goal (LTG) Pt will have 4+/5 LE strength B and 3/5 LPM in order to show improves stability in order to inc confidence with doing typical activities. 11/15-improving 12/12-increasing LTG Duration 04/15/20 Assessment Summary Assessment Pt is improving with balance but does rquire max cues in SLS to get knee ext B. Physical Therapy Plan Frequency and Duration Frequency of Treatment 1-2x/week Duration of Treatment 2 months Plan of Care Start Date 02/14/20 Plan of Care End Date 04/15/20 Next Visit Focus/Plan Next Note Type Progress Note Next Visit Plan work on SLS activities & terminal knee ext with hip ext
--- NOTE | 2020-04-10 07:46 | PT-OP ANOTE ---
Pt called re: no show and encouraged to call back to reschedule for tomorrow if he would like. Otherwise informed of next scheduled appointment.
--- NOTE | 2020-04-11 15:20 | PT.OTN ---
Current Diagnoses Spinal stenosis, lumbar region with neurogenic claudication (04/11/20) Difficulty in walking, not elsewhere classified (04/11/20) Abnormal posture (04/11/20) Weakness (04/11/20) Physical Therapy Treatment Note PT-OP-A Visit Information Start: 10/11/19 08:57 Freq: Status: Active Protocol: Document 04/11/20 14:05 [facility] (Rec: 04/11/20 15:19 [facility] [id number]) Out-Patient Physical Therapy Visit Information Visit Information Visit Type Progress Note Visit Note 12/17 Visit Start Time 14:25 Visit Stop Time 15:10 Total Visit Minutes 45 Visit Number 33 Number of KARATE TEACHER Visits 0 PT-OP-B Current Condition Start: 10/11/19 08:57 Freq: Status: Active Protocol: Document 10/11/19 08:58 [facility] (Rec: 10/11/19 10:36 [facility] [id number]) Current Condition History of Current Condition Onset Date chronic Current Complaints L>R LBP and R hip History of Current Condition Pt reprots his pain in LB and hip is worse recently and R hip bothers him especially when bending over especially to R side. Pt has been using walking sticks when he is going on walks and using a cane for around the yard, but no AD in the house. Pt notes he gets a sudden weakness sometimes in L LB where it feels like it gives out. Pt reports waking up with serious cramps in R leg and pain in R knee. Pt reports he can massage that pain away. Pt reports he notices he is a little wobbly sometimes. notes his posture is not great and notes he cannot keep up well when walking his . Reports walking too long can cause LBP. notes he has more trouble getting up and down from a chair especially in a lower chair. Prior Treatments and Tests PT which helps Treatment Goals Patient/Caregiver Goals find out which exercises to be doing, inc strength and balance PT-OP-C Subjective Start: 10/11/19 08:57 Freq: Status: Active Protocol: Document 04/11/20 14:05 [facility] (Rec: 04/11/20 15:19 [facility] [id number]) OP-PT Subjective Patient Comments Patient Comments Pt reports back is feeling better. notes he did a long walk with his and did well Patient Reported Progress Improving PT-OP-E Functional Tests Start: 10/11/19 08:57 Freq: Status: Active Protocol: Document 04/11/20 14:05 [facility] (Rec: 04/11/20 15:19 [facility] [id number]) Functional Tests Five Times Sit to Stand Test Score 14sec PT-OP-G Mobility & Gait Start: 10/11/19 08:57 Freq: Status: Active Protocol: Document 10/11/19 08:58 [facility] (Rec: 10/11/19 10:36 [facility] [id number]) OP Gait Assessment Comments Gait Comments Pt has inc fwd flex at trunk, lat leaning and primarily leg walker PT-OP-J Posture/Palpation/Skin Start: 10/11/19 08:57 Freq: Status: Active Protocol: Document 04/11/20 14:05 [facility] (Rec: 04/11/20 15:19 [facility] [id number]) Posture Evaluation Augusto Postural Classification System Lumbar Protective Mechanism Left AP 3 Lumbar Protective Mechanism Right AP 2 Lumbar Protective Mechanism Left PA 2 Lumbar Protective Mechanism Right PA 2 PT-OP-L Special Tests Start: 10/11/19 08:57 Freq: Status: Active Protocol: Document 10/11/19 08:58 [facility] (Rec: 10/11/19 10:36 [facility] [id number]) Special Tests Lumbar Spine Special Tests Slump Test Results neg B Straight Leg Raise Test Results neg B HS tightness to about 40 deg hip flex PT-OP-M Strength Start: 10/11/19 08:57 Freq: Status: Active Protocol: Document 04/11/20 14:05 [facility] (Rec: 04/11/20 15:19 [facility] [id number]) Hip Strength Hip Manual Muscle Testing Left Flexion (L2) 4+ Good+ Extension (S1) 4+ Good+ Abduction 4+ Good+ External Rotation 5 Normal Internal Rotation 5 Normal Right Flexion (L2) 4 Good Extension (S1) 4 Good Abduction 4 Good External Rotation 3+ Fair+ Internal Rotation 5 Normal Comments very limited in ER ROM Knee Strength Knee Manual Muscle Testing Right Flexion (S2) 5 Normal Extension (L3) 5 Normal Left Flexion (S2) 5 Normal Extension (L3) 5 Normal PT-OP-Q Treatments Start: 10/11/19 08:57 Freq: Status: Active Protocol: Document 04/11/20 14:05 [facility] (Rec: 04/11/20 15:19 [facility] [id number]) Cardio Equipment Recumbent Bicycle Duration (Minutes) 5 Resistance 13 Seat Position 12 Gym Equipment Shuttle Balance 1 Details red clips Reps/Duration w/balloon toss Comments fwd & side: WBOS & NBOS, staggered stance B Therapeutic Exercises Standing Exercises 7 Standing Exercise Name 5x sit to stand test x2 Manual Therapy Treatment Soft Tissue Mobilization 4 Body Location QL &ES, ant sup iliac crest, upper glutes R Mobilization Type Rolling,Sustained Pressure Intensity/Depth Moderate Body Position Sidelying Neuro Re-Education Treatment Balance Activities 5 Details toe taps to 16 in step Equipment 5# ankle wts B Reps/Duration 15 B 4 Comments 1. SLS ball roll circles B 2. SLS trials 2 Details 8 in step up with july Reps/Duration 10 B Comments occ rail use PT-OP-R Modalities Start: 10/11/19 08:57 Freq: Status: Active Protocol: Document 04/11/20 14:05 [facility] (Rec: 04/11/20 15:19 [facility] [id number]) Hot Pack/Cold Pack Treatment Cold Pack Location LS Patient Position Hooklying Treatment Duration (minutes) 10 PT-OP-T Assessment and Plan Start: 10/11/19 08:57 Freq: Status: Active Protocol: Document 04/11/20 14:05 [facility] (Rec: 04/11/20 15:19 [facility] [id number]) Physical Therapy Assessment Goals Five Impairment SLS-2 sec B Short Term Goal (STG) Pt will be able to do SLS 5 sec w/o LOB. L-5 sec, R 3 sec STG Duration 05/11/20 Long-Term Goal (LTG) Pt will be able to stand and feel safe when putting on underwear and pants. LTG Duration achieved Four Impairment ability to get up/down from chair 5x sit<>stand=22 sec Short Term Goal (STG) Pt will be able to do 5x sit to emergency veterinarian 18 sec to show improved ability to get up/ down from chair. 11/15-still limited STG Duration achieved to 18 sec Long-Term Goal (LTG) Pt will be able to do 5x sit to emergency veterinarian 13 sec to show improved ability to get up/ down from chair. 02/13-18 sec 04/11-14 sec LTG Duration 05/12/20 Three Impairment FGA Lawn Care Specialist Goal (LTG) Pt will score >25/30 on FGA to show low risk for falls. 11/15- 12/12- LTG Duration achieved Two Long-Term Goal (LTG) Pt will be able to bend over to put on shoes without inc pain. 11/15-pt reports pain is very minimal LTG Duration achieved One Impairment strength Short Term Goal (STG) Pt will be indep with HEP. STG Duration achieved Lawn Care Specialist Goal (LTG) Pt will have 4+/5 LE strength B and 3/5 LPM in order to show improves stability in order to inc confidence with doing typical activities. 11/15-improving 12/12-increasing 04/11-improving LTG Duration 05/12/20 Assessment Summary Assessment Pt is progressing with functional strength and has been able to do longer walks with less c/o back pain. He is feeling more steady during ADLs. Cont PT through end of month to cont to build up LE strenth & stability and make sure pt is indep w/ HEP Physical Therapy Plan Frequency and Duration Frequency of Treatment 1-2x/week Duration of Treatment 1 month Plan of Care Start Date 04/11/20 Plan of Care End Date 05/12/20 Therapeutic Interventions Therapeutic Interventions Aquatic Therapy,Balance Training,Gait Training,Home Exercise Program,Joint Mobilizations,Manual Therapy, Neuromuscular Re-education, Patient/Caregiver Education, Self-Care/Home Management,Soft Tissue Mobilization,Taping, Therapeutic Activities, Therapeutic Exercises Modalities Cold Pack/Ice Massage,Electric Stimulation,Hot Packs, Ultrasound Next Visit Focus/Plan Next Note Type Treatment Note Next Visit Plan work on SLS activities & terminal knee ext with hip ext
--- NOTE | 2020-04-11 15:20 | PT.OPPOC ---
Physical, Occupational & Speech Therapy At [facility] Current Diagnoses Spinal stenosis, lumbar region with neurogenic claudication (04/11/20) Difficulty in walking, not elsewhere classified (04/11/20) Abnormal posture (04/11/20) Weakness (04/11/20) Visit Care Team Role Provider Type To Vallejo MD Attending Provider Physician Family Provider Primary Care Provider Referring Provider Specialty: Internal Medicine Address: [address] [place] [address], [phone] Email: [email or web address] Of Care PT-OP-T Assessment and Plan Start: 10/11/19 08:57 Freq: Status: Active Protocol: Document 04/11/20 14:05 [facility] (Rec: 04/11/20 15:19 [facility] [id number]) Physical Therapy Assessment Goals Five Impairment SLS-2 sec B Short Term Goal (STG) Pt will be able to do SLS 5 sec w/o LOB. L-5 sec, R 3 sec STG Duration 05/11/20 Skilled Nursing Goal (LTG) Pt will be able to stand and feel safe when putting on underwear and pants. LTG Duration achieved Four Impairment ability to get up/down from chair 5x sit<>stand=22 sec Short Term Goal (STG) Pt will be able to do 5x sit to entry level accounting clerk 18 sec to show improved ability to get up/ down from chair. 11/15-still limited STG Duration achieved to 18 sec Digital Advisor Goal (LTG) Pt will be able to do 5x sit to entry level accounting clerk 13 sec to show improved ability to get up/ down from chair. 02/13-18 sec 04/11-14 sec LTG Duration 05/12/20 Three Impairment FGA Digital Advisor Goal (LTG) Pt will score >25/30 on FGA to show low risk for falls. 11/15- 12/12-24/ LTG Duration achieved Two Digital Advisor Goal (LTG) Pt will be able to bend over to put on shoes without inc pain. 11/15-pt reports pain is very minimal LTG Duration achieved One Impairment strength Short Term Goal (STG) Pt will be indep with HEP. STG Duration achieved Digital Advisor Goal (LTG) Pt will have 4+/5 LE strength B and 3/5 LPM in order to show improves stability in order to inc confidence with doing typical activities. 11/15-improving 12/12-increasing 04/11-improving LTG Duration 05/12/20 Assessment Summary Assessment Pt is progressing with functional strength and has been able to do longer walks with less c/o back pain. He is feeling more steady during ADLs. Cont PT through end of month to cont to build up LE strenth & stability and make sure pt is indep w/ HEP Physical Therapy Plan Frequency and Duration Frequency of Treatment 1-2x/week Duration of Treatment 1 month Plan of Care Start Date 04/11/20 Plan of Care End Date 05/12/20 Therapeutic Interventions Therapeutic Interventions Aquatic Therapy,Balance Training,Gait Training,Home Exercise Program,Joint Mobilizations,Manual Therapy, Neuromuscular Re-education, Patient/Caregiver Education, Self-Care/Home Management,Soft Tissue Mobilization,Taping, Therapeutic Activities, Therapeutic Exercises Modalities Cold Pack/Ice Massage,Electric Stimulation,Hot Packs, Ultrasound Next Visit Focus/Plan Next Note Type Treatment Note Next Visit Plan work on SLS activities & terminal knee ext with hip ext Plan of Care Dates Plan of Care Start Date 04/11/20 Plan of Care End Date 05/12/20 Electronically Signed by: Reina Rider, PT 04/11/20 1520 Please Sign and Return: I have reviewed this Plan of Care and certify that the skilled therapy services above are required to meet the patient?s needs. Physician Signature Date Printed Name and Credentials Clinical Instructor Signature Printed Name and Credentials
--- NOTE | 2020-04-16 08:21 | PT.OTN ---
Current Diagnoses Spinal stenosis, lumbar region with neurogenic claudication (04/16/20) Difficulty in walking, not elsewhere classified (04/16/20) Abnormal posture (04/16/20) Weakness (04/16/20) Physical Therapy Treatment Note PT-OP-A Visit Information Start: 10/11/19 08:57 Freq: Status: Active Protocol: Document 04/16/20 07:37 [facility] (Rec: 04/16/20 08:21 [facility] [id number]) Out-Patient Physical Therapy Visit Information Visit Information Visit Type Treatment Note Visit Start Time 07:36 Visit Stop Time 08:26 Total Visit Minutes 50 Visit Number 34 Number of TECHNICAL SERVICE REP Visits 0 PT-OP-B Current Condition Start: 10/11/19 08:57 Freq: Status: Active Protocol: Document 10/11/19 08:58 [facility] (Rec: 10/11/19 10:36 [facility] [id number]) Current Condition History of Current Condition Onset Date chronic Current Complaints L>R LBP and R hip History of Current Condition Pt reprots his pain in LB and hip is worse recently and R hip bothers him especially when bending over especially to R side. Pt has been using walking sticks when he is going on walks and using a cane for around the yard, but no AD in the house. Pt notes he gets a sudden weakness sometimes in L LB where it feels like it gives out. Pt reports waking up with serious cramps in R leg and pain in R knee. Pt reports he can massage that pain away. Pt reports he notices he is a little wobbly sometimes. notes his posture is not great and notes he cannot keep up well when walking his . Reports walking too long can cause LBP. notes he has more trouble getting up and down from a chair especially in a lower chair. Prior Treatments and Tests PT which helps Treatment Goals Patient/Caregiver Goals find out which exercises to be doing, inc strength and balance PT-OP-C Subjective Start: 10/11/19 08:57 Freq: Status: Active Protocol: Document 04/16/20 07:37 [facility] (Rec: 04/16/20 08:21 [facility] [id number]) OP-PT Subjective Patient Comments Patient Comments Pt reports compliance with exercises. PT-OP-E Functional Tests Start: 10/11/19 08:57 Freq: Status: Active Protocol: Document 04/11/20 14:05 [facility] (Rec: 04/11/20 15:19 [facility] [id number]) Functional Tests Five Times Sit to Stand Test Score 14sec PT-OP-G Mobility & Gait Start: 10/11/19 08:57 Freq: Status: Active Protocol: Document 10/11/19 08:58 [facility] (Rec: 10/11/19 10:36 [facility] [id number]) OP Gait Assessment Comments Gait Comments Pt has inc fwd flex at trunk, lat leaning and primarily leg walker PT-OP-J Posture/Palpation/Skin Start: 10/11/19 08:57 Freq: Status: Active Protocol: Document 04/11/20 14:05 [facility] (Rec: 04/11/20 15:19 [facility] [id number]) Posture Evaluation Augusto Postural Classification System Lumbar Protective Mechanism Left AP 3 Lumbar Protective Mechanism Right AP 2 Lumbar Protective Mechanism Left PA 2 Lumbar Protective Mechanism Right PA 2 PT-OP-L Special Tests Start: 10/11/19 08:57 Freq: Status: Active Protocol: Document 10/11/19 08:58 [facility] (Rec: 10/11/19 10:36 [facility] [id number]) Special Tests Lumbar Spine Special Tests Slump Test Results neg B Straight Leg Raise Test Results neg B HS tightness to about 40 deg hip flex PT-OP-M Strength Start: 10/11/19 08:57 Freq: Status: Active Protocol: Document 04/11/20 14:05 [facility] (Rec: 04/11/20 15:19 [facility] [id number]) Hip Strength Hip Manual Muscle Testing Left Flexion (L2) 4+ Good+ Extension (S1) 4+ Good+ Abduction 4+ Good+ External Rotation 5 Normal Internal Rotation 5 Normal Right Flexion (L2) 4 Good Extension (S1) 4 Good Abduction 4 Good External Rotation 3+ Fair+ Internal Rotation 5 Normal Comments very limited in ER ROM Knee Strength Knee Manual Muscle Testing Right Flexion (S2) 5 Normal Extension (L3) 5 Normal Left Flexion (S2) 5 Normal Extension (L3) 5 Normal PT-OP-Q Treatments Start: 10/11/19 08:57 Freq: Status: Active Protocol: Document 04/16/20 07:37 [facility] (Rec: 04/16/20 08:21 [facility] [id number]) Cardio Equipment Recumbent Bicycle Duration (Minutes) 5 Resistance 13 Seat Position 12 Gym Equipment Sport Cord step up Exercise Details 6 in step Cord/Resistance green Reps/Duration 10 B Therapeutic Exercises Standing Exercises 7 Standing Exercise Name sit to stand from 16 in stepx5 then 10 from18 in geen chair Side bilateral Comments no hands 4 Standing Exercise Name TKE Side bilateral Equipment Used L4 Reps/Minutes 30 Neuro Re-Education Treatment Balance Activities 5 Details toe taps to 16 in step Equipment 5# ankle wts B Reps/Duration 15 B 4 Comments 1. SLS ball roll circles B 2. SLS trials 2 Details 8 in step up with march Reps/Duration 10 B Comments occ rail use PT-OP-R Modalities Start: 10/11/19 08:57 Freq: Status: Active Protocol: Document 04/16/20 07:37 [facility] (Rec: 04/16/20 08:21 [facility] [id number]) Hot Pack/Cold Pack Treatment Cold Pack Location LS Patient Position Hooklying Treatment Duration (minutes) 10 PT-OP-T Assessment and Plan Start: 10/11/19 08:57 Freq: Status: Active Protocol: Document 04/16/20 07:37 [facility] (Rec: 04/16/20 08:21 [facility] [id number]) Physical Therapy Assessment Goals Five Impairment SLS-2 sec B Short Term Goal (STG) Pt will be able to do SLS 5 sec w/o LOB. L-5 sec, R 3 sec STG Duration 05/11/20 Mcc Goal (LTG) Pt will be able to stand and feel safe when putting on underwear and pants. LTG Duration achieved Four Impairment ability to get up/down from chair 5x sit<>stand=22 sec Short Term Goal (STG) Pt will be able to do 5x sit to vmware administrator 18 sec to show improved ability to get up/ down from chair. 11/15-still limited STG Duration achieved to 18 sec Mcc Goal (LTG) Pt will be able to do 5x sit to vmware administrator 13 sec to show improved ability to get up/ down from chair. 02/13-18 sec 04/11-14 sec LTG Duration 05/12/20 Three Impairment FGA Chromosomal Disorders Counselor Goal (LTG) Pt will score >25/30 on FGA to show low risk for falls. 11/15- 8/- LTG Duration achieved Two Mcc Goal (LTG) Pt will be able to bend over to put on shoes without inc pain. 11/15-pt reports pain is very minimal LTG Duration achieved One Impairment strength Short Term Goal (STG) Pt will be indep with HEP. STG Duration achieved Chromosomal Disorders Counselor Goal (LTG) Pt will have 4+/5 LE strength B and 3/5 LPM in order to show improves stability in order to inc confidence with doing typical activities. 11/15-improving 12/12-increasing 04/11-improving LTG Duration 05/12/20 Assessment Summary Assessment Pt did better with knee ext on RLE today but still did require cueing but more often for LLE. He is imprvoignw ith balance and overall strength. He showed greater ease with sit to stand for 16 in step. Physical Therapy Plan Frequency and Duration Frequency of Treatment 1-2x/week Duration of Treatment 1 month Plan of Care Start Date 04/11/20 Plan of Care End Date 05/12/20 Next Visit Focus/Plan Next Note Type Treatment Note Next Visit Plan work on SLS activities & terminal knee ext with hip ext
--- NOTE | 2020-04-23 08:17 | PT.OTN ---
Current Diagnoses Spinal stenosis, lumbar region with neurogenic claudication (04/23/20) Difficulty in walking, not elsewhere classified (04/23/20) Abnormal posture (04/23/20) Weakness (04/23/20) Physical Therapy Treatment Note PT-OP-A Visit Information Start: 10/11/19 08:57 Freq: Status: Active Protocol: Document 04/23/20 07:29 [facility] (Rec: 04/23/20 08:17 [facility] [id number]) Out-Patient Physical Therapy Visit Information Visit Information Visit Type Treatment Note Visit Start Time 07:32 Visit Stop Time 08:23 Total Visit Minutes 51 Visit Number 35 Number of PRODUCTION CLERKS SUPERVISOR Visits 0 PT-OP-B Current Condition Start: 10/11/19 08:57 Freq: Status: Active Protocol: Document 10/11/19 08:58 [facility] (Rec: 10/11/19 10:36 [facility] [id number]) Current Condition History of Current Condition Onset Date chronic Current Complaints L>R LBP and R hip History of Current Condition Pt reprots his pain in LB and hip is worse recently and R hip bothers him especially when bending over especially to R side. Pt has been using walking sticks when he is going on walks and using a cane for around the yard, but no AD in the house. Pt notes he gets a sudden weakness sometimes in L LB where it feels like it gives out. Pt reports waking up with serious cramps in R leg and pain in R knee. Pt reports he can massage that pain away. Pt reports he notices he is a little wobbly sometimes. notes his posture is not great and notes he cannot keep up well when walking his . Reports walking too long can cause LBP. notes he has more trouble getting up and down from a chair especially in a lower chair. Prior Treatments and Tests PT which helps Treatment Goals Patient/Caregiver Goals find out which exercises to be doing, inc strength and balance PT-OP-C Subjective Start: 10/11/19 08:57 Freq: Status: Active Protocol: Document 04/23/20 07:29 [facility] (Rec: 04/23/20 08:17 [facility] [id number]) OP-PT Subjective Patient Comments Patient Comments Pt reports back has been doing pretty good. Feels like it is getting looser and looser and less of a problem. When he bends over with his back, he sometimes still feels it. PT-OP-E Functional Tests Start: 10/11/19 08:57 Freq: Status: Active Protocol: Document 04/11/20 14:05 [facility] (Rec: 04/11/20 15:19 [facility] [id number]) Functional Tests Five Times Sit to Stand Test Score 14sec PT-OP-G Mobility & Gait Start: 10/11/19 08:57 Freq: Status: Active Protocol: Document 10/11/19 08:58 [facility] (Rec: 10/11/19 10:36 [facility] [id number]) OP Gait Assessment Comments Gait Comments Pt has inc fwd flex at trunk, lat leaning and primarily leg walker PT-OP-J Posture/Palpation/Skin Start: 10/11/19 08:57 Freq: Status: Active Protocol: Document 04/11/20 14:05 [facility] (Rec: 04/11/20 15:19 [facility] [id number]) Posture Evaluation [facility] Postural Classification System Lumbar Protective Mechanism Left AP 3 Lumbar Protective Mechanism Right AP 2 Lumbar Protective Mechanism Left PA 2 Lumbar Protective Mechanism Right PA 2 PT-OP-L Special Tests Start: 10/11/19 08:57 Freq: Status: Active Protocol: Document 10/11/19 08:58 [facility] (Rec: 10/11/19 10:36 [facility] [id number]) Special Tests Lumbar Spine Special Tests Slump Test Results neg B Straight Leg Raise Test Results neg B HS tightness to about 40 deg hip flex PT-OP-M Strength Start: 10/11/19 08:57 Freq: Status: Active Protocol: Document 04/11/20 14:05 [facility] (Rec: 04/11/20 15:19 [facility] [id number]) Hip Strength Hip Manual Muscle Testing Left Flexion (L2) 4+ Good+ Extension (S1) 4+ Good+ Abduction 4+ Good+ External Rotation 5 Normal Internal Rotation 5 Normal Right Flexion (L2) 4 Good Extension (S1) 4 Good Abduction 4 Good External Rotation 3+ Fair+ Internal Rotation 5 Normal Comments very limited in ER ROM Knee Strength Knee Manual Muscle Testing Right Flexion (S2) 5 Normal Extension (L3) 5 Normal Left Flexion (S2) 5 Normal Extension (L3) 5 Normal PT-OP-Q Treatments Start: 10/11/19 08:57 Freq: Status: Active Protocol: Document 04/23/20 07:29 [facility] (Rec: 04/23/20 08:17 [facility] [id number]) Cardio Equipment Recumbent Bicycle Duration (Minutes) 5 Resistance 13 Seat Position 12 Therapeutic Exercises Supine Exercises 2 Supine Exercise Name bridge w/alt march Side bilateral Reps/Minutes 5 Standing Exercises 6 Standing Exercise Name wall posture w/shoulder ext Side bilateral Reps/Minutes 1 min 5 Standing Exercise Name hip hike Side bilateral Reps/Minutes 10 4 Standing Exercise Name SLS Side bilateral Reps/Minutes mult trials by rail 3 Standing Exercise Name sidestep Side bilateral Equipment Used Lvl1 Reps/Minutes 5ftx6 2 Standing Exercise Name hip abd Side bilateral Reps/Minutes 10 Comments stopped d/t pull in back 1 Standing Exercise Name squats Side bilateral Equipment Used over chair Reps/Minutes 2x15 Comments cues for knee position, foot position to start & back position Manual Therapy Treatment Soft Tissue Mobilization 4 Body Location QL &ES, ant sup iliac crest, upper glutes R Mobilization Type Rolling,Sustained Pressure Intensity/Depth Moderate Body Position Sidelying Self-Care/Home Management Treatment Education Other Education review of HEP with written cueing for form PT-OP-R Modalities Start: 10/11/19 08:57 Freq: Status: Active Protocol: Document 04/23/20 07:29 [facility] (Rec: 04/23/20 08:17 [facility] [id number]) Hot Pack/Cold Pack Treatment Cold Pack Location LS Patient Position Hooklying Treatment Duration (minutes) 10 PT-OP-T Assessment and Plan Start: 10/11/19 08:57 Freq: Status: Active Protocol: Document 04/23/20 07:29 [facility] (Rec: 04/23/20 08:17 [facility] [id number]) Physical Therapy Assessment Goals Five Impairment SLS-2 sec B Short Term Goal (STG) Pt will be able to do SLS 5 sec w/o LOB. L-5 sec, R 3 sec STG Duration 05/11/20 Fun House Attendant Goal (LTG) Pt will be able to stand and feel safe when putting on underwear and pants. LTG Duration achieved Four Impairment ability to get up/down from chair 5x sit<>stand=22 sec Short Term Goal (STG) Pt will be able to do 5x sit to metallurgical engineer 18 sec to show improved ability to get up/ down from chair. 7/9-still limited STG Duration achieved to 18 sec Long-Term Goal (LTG) Pt will be able to do 5x sit to metallurgical engineer 13 sec to show improved ability to get up/ down from chair. 02/13-18 sec 04/11-14 sec LTG Duration 05/12/20 Three Impairment FGA Fun House Attendant Goal (LTG) Pt will score >25/30 on FGA to show low risk for falls. 11/15- 12/12-24/30 LTG Duration achieved Two Fun House Attendant Goal (LTG) Pt will be able to bend over to put on shoes without inc pain. 11/15-pt reports pain is very minimal LTG Duration achieved One Impairment strength Short Term Goal (STG) Pt will be indep with HEP. STG Duration achieved Fun House Attendant Goal (LTG) Pt will have 4+/5 LE strength B and 3/5 LPM in order to show improves stability in order to inc confidence with doing typical activities. 11/15-improving 12/12-increasing 04/11-improving LTG Duration 05/12/20 Assessment Summary Assessment Pt required cueing during all exercises for form reminders especailly regarding posture. He was able to do exercsies well once cued. Will plan to review HEP again Physical Therapy Plan Frequency and Duration Frequency of Treatment 1-2x/week Duration of Treatment 1 month Plan of Care Start Date 04/11/20 Plan of Care End Date 05/12/20 Next Visit Focus/Plan Next Note Type Discharge Summary Next Visit Plan review HEP to prepare for dc in a couple weeks
--- NOTE | 2020-04-30 08:13 | PT.OTN ---
Current Diagnoses Spinal stenosis, lumbar region with neurogenic claudication (04/30/20) Difficulty in walking, not elsewhere classified (04/30/20) Abnormal posture (04/30/20) Weakness (04/30/20) Physical Therapy Treatment Note PT-OP-A Visit Information Start: 10/11/19 08:57 Freq: Status: Active Protocol: Document 04/30/20 07:30 [facility] (Rec: 04/30/20 08:13 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 (Rec: 10/11/19 10:36 [facility] [id number]) Current Condition History of Current Condition Onset Date chronic Current Complaints L>R LBP and R hip History of Current Condition Pt reprots his pain in LB and hip is worse recently and R hip bothers him especially when bending over especially to R side. Pt has been using walking sticks when he is going on walks and using a cane for around the yard, but no AD in the house. Pt notes he gets a sudden weakness sometimes in L LB where it feels like it gives out. Pt reports waking up with serious cramps in R leg and pain in R knee. Pt reports he can massage that pain away. Pt reports he notices he is a little wobbly sometimes. notes his posture is not great and notes he cannot keep up well when walking his . Reports walking too long can cause LBP. notes he has more trouble getting up and down from a chair especially in a lower chair. Prior Treatments and Tests PT which helps Treatment Goals Patient/Caregiver Goals find out which exercises to be doing, inc strength and balance PT-OP-C Subjective Start: 10/11/19 08:57 Freq: Status: Active Protocol: Document 04/30/20 07:30 [facility] (Rec: 04/30/20 08:13 [facility] [id number]) OP-PT Subjective Patient Comments Patient Comments Pt reports doing some squats this week and sit to stands and some walks. Reports no issues with bad today Patient Reported Progress Improving PT-OP-E Functional Tests Start: 06/03/20 08:57 Freq: Status: Active Protocol: Document 04/11/20 14:05 [facility] (Rec: 04/11/20 15:19 [facility] [id number]) Functional Tests Five Times Sit to Stand Test Score 14sec PT-OP-G Mobility & Gait Start: 10/11/19 08:57 Freq: Status: Active Protocol: Document 10/11/19 08:58 [facility] (Rec: 10/11/19 10:36 [facility] [id number]) OP Gait Assessment Comments Gait Comments Pt has inc fwd flex at trunk, lat leaning and primarily leg walker PT-OP-J Posture/Palpation/Skin Start: 10/11/19 08:57 Freq: Status: Active Protocol: Document 04/30/20 07:30 [facility] (Rec: 04/30/20 08:13 [facility] [id number]) Posture Evaluation [facility] Postural Classification System Lumbar Protective Mechanism Left AP 3 Lumbar Protective Mechanism Right AP 2 Lumbar Protective Mechanism Left PA 3 Lumbar Protective Mechanism Right PA 3 PT-OP-L Special Tests Start: 10/11/19 08:57 Freq: Status: Active Protocol: Document 10/11/19 08:58 [facility] (Rec: 10/11/19 10:36 [facility] [id number]) Special Tests Lumbar Spine Special Tests Slump Test Results neg B Straight Leg Raise Test Results neg B HS tightness to about 40 deg hip flex PT-OP-M Strength Start: 10/11/19 08:57 Freq: Status: Active Protocol: Document 04/11/20 14:05 [facility] (Rec: 04/11/20 15:19 [facility] [id number]) Hip Strength Hip Manual Muscle Testing Left Flexion (L2) 4+ Good+ Extension (S1) 4+ Good+ Abduction 4+ Good+ External Rotation 5 Normal Internal Rotation 5 Normal Right Flexion (L2) 4 Good Extension (S1) 4 Good Abduction 4 Good External Rotation 3+ Fair+ Internal Rotation 5 Normal Comments very limited in ER ROM Knee Strength Knee Manual Muscle Testing Right Flexion (S2) 5 Normal Extension (L3) 5 Normal Left Flexion (S2) 5 Normal Extension (L3) 5 Normal PT-OP-Q Treatments Start: 10/11/19 08:57 Freq: Status: Active Protocol: Document 04/30/20 07:30 [facility] (Rec: 04/30/20 08:13 [facility] [id number]) Cardio Equipment Recumbent Bicycle Duration (Minutes) 5 Resistance 13 Seat Position 12 Gym Equipment Shuttle Balance 1 Details red clips Reps/Duration w/balloon toss Comments fwd & side: WBOS & NBOS, staggered stance B Therapeutic Exercises Supine Exercises 2 Supine Exercise Name bridge w/alt march Side bilateral Reps/Minutes 5 Standing Exercises 7 Standing Exercise Name sit to stand Reps/Minutes 5 in 16 sec 6 Standing Exercise Name wall posture w/shoulder ext Side bilateral Reps/Minutes 1 min 5 Standing Exercise Name hip hike Side bilateral Reps/Minutes 10 4 Standing Exercise Name SLS Side bilateral Reps/Minutes mult trials by rail 3 Standing Exercise Name sidestep Side bilateral Equipment Used Lvl1 Reps/Minutes 20ftx2 2 Standing Exercise Name hip abd Side bilateral Reps/Minutes 10 Comments stopped d/t pull in back 1 Standing Exercise Name squats Side bilateral Equipment Used over chair Reps/Minutes 15 Comments cues for knee position, foot position to start & back position PT-OP-R Modalities Start: 10/11/19 08:57 Freq: Status: Active Protocol: Document 04/30/20 07:30 [facility] (Rec: 04/30/20 08:13 [facility] [id number]) Hot Pack/Cold Pack Treatment Cold Pack Location LS Patient Position Hooklying Treatment Duration (minutes) 10 PT-OP-T Assessment and Plan Start: 10/11/19 08:57 Freq: Status: Active Protocol: Document 04/30/20 07:30 [facility] (Rec: 04/30/20 08:13 [facility] [id number]) Physical Therapy Assessment Goals Five Impairment SLS-2 sec B Short Term Goal (STG) Pt will be able to do SLS 5 sec w/o LOB. L-6 sec, R 5sec STG Duration impro armando Resolution Analyst Goal (LTG) Pt will be able to stand and feel safe when putting on underwear and pants. LTG Duration achieved Four Impairment ability to get up/down from chair 5x sit<>stand=22 sec Short Term Goal (STG) Pt will be able to do 5x sit to roll edge machine operator 18 sec to show improved ability to get up/ down from chair. 7/9-still limited STG Duration achieved to 18 sec Resolution Analyst Goal (LTG) Pt will be able to do 5x sit to roll edge machine operator 13 sec to show improved ability to get up/ down from chair. 02/13-18 sec 04/11-14 sec LTG Duration 16 sec Three Impairment FGA Penitentiary Goal (LTG) Pt will score >25/30 on FGA to show low risk for falls. 11/15- 12/12- LTG Duration achieved Two Penitentiary Goal (LTG) Pt will be able to bend over to put on shoes without inc pain. 11/15-pt reports pain is very minimal LTG Duration achieved One Impairment strength Short Term Goal (STG) Pt will be indep with HEP. STG Duration achieved Resolution Analyst Goal (LTG) Pt will have 4+/5 LE strength B and 3/5 LPM in order to show improves stability in order to inc confidence with doing typical activities. 11/15-improving 12/12-increasing 04/11-improving LTG Duration improved Assessment Summary Assessment Pt made excellent progress w/ PT with good gains in functional ability, balance, strength and dec in pain. He s having less difficulty with LBP and has dec fall risk per testing. He is to cont strengthening w/HEP. Physical Therapy Plan Discharge Physical Therapy Discharge Reasons Goals Met
== END 2020-05-01 11:18 | disposition home or self-care (01) ==
LOC: PHYS 07:30
PROVIDERS: Family Provider Internal Medicine; PCP Internal Medicine; Referring Provider Internal Medicine; Visit Provider Internal Medicine
DX: M48.062 Spinal stenosis, lumbar region with neurogenic claudication (principal); R53.1 Weakness; R29.3 Abnormal posture; R26.2 Difficulty in walking, not elsewhere classified
CPT/HCPCS: 97010; 97110; 97112; 97116; 97140; 97162; 97530; 97535

== ENCOUNTER → 2020-06-19 10:01 | Outpatient (CLI) | payer OTHER, SELFPAY ==
[2020-06-19 10:10] LABS: Bacteria Urine None Seen; WBC Urine None Seen (0-5/HPF)
[2020-06-19 11:09] LABS: Appearance Urine UA CLEAR; Bilirubin Urine UA NEGATIVE (NEGATIVE); Color Urine UA YELLOW; Glucose Urine UA NEGATIVE (Negative); Ketones Urine UA NEGATIVE (NEGATIVE); Leukocyte Esterase Urine UA NEGATIVE (NEGATIVE); Nitrite Urine UA NEGATIVE (Negative); Occult Blood Urine UA 1+ (Negative); Protein Urine UA NEGATIVE (Negative); Specific Gravity Urine UA 1.015 (1.000-1.035); Urobilinogen Urine UA 0.2 E.U./dL (0.2); pH Urine UA 7.5 (4.5-8.0)
[2020-06-19 11:18] LABS: Culture Indicated Urine Cult Not Indicated; RBC Urine 1-5/HPF (0-5/HPF)
== END ==
PROVIDERS: Family Provider Internal Medicine; PCP Internal Medicine; Referring Provider Nurse Practitioner; Visit Provider Nurse Practitioner
DX: G31.84 Mild cognitive impairment of uncertain or unknown etiology (principal)
CPT/HCPCS: 36415; 81001

== ENCOUNTER → 2021-01-16 09:03 | Outpatient (CLI) | payer OTHER, SELFPAY ==
--- NOTE | 2021-01-16 | DI.MRI.S_ITS ---
PROCEDURE: MR LUMBAR SPINE WO CON INDICATIONS: LOW BACK PAIN TECHNIQUE: Noncontrast sagittal T1 spin echo and T2 fast echo, sagittal STIR, axial T1 and T2 fast spin echo through the lumbar spine. In cases with scoliosis, additional coronal T2 fast spin echo may be performed. COMPARISON: [facility], MR, L-SPINE WITHOUT CONTRAST, 10/08/2016, 16:26. FINDINGS: Image quality: Excellent. Alignment and Curvature: Degenerative grade 1 anterior spondylolisthesis noted at L3-4. Bone Marrow: Vertebral body height is maintained. Mild degenerative endplate changes noted. Spinal Cord: Conus medullaris terminates at the L1 level. Visualized cord demonstrates normal signal and size. Paraspinous Soft Tissues: No paravertebral masses. T12-L1: Normal appearance. L1-L2: Normal appearance. L2-L3: Mild disc space narrowing present. High-intensity zone in the posterior annulus reflecting annular fissure or tear. Circumferential disc bulge and hypertrophic facet joints combined result in moderate central stenosis. Moderate bilateral foraminal stenosis present as well. L3-L4: Moderate disc space narrowing and circumferential disc bulge combines with ligamentum flavum laxity and hypertrophic facet joints to result in severe central stenosis. There is severe right and moderate left foraminal stenosis present. L4-L5: Moderate disc space narrowing with circumferential disc bulge and hypertrophic facet joints present. Mild central moderate bilateral foraminal stenosis noted. L5-S1: Moderate disc space narrowing with circumferential disc bulge present. No central stenosis. Moderate left and mild right foraminal stenosis. Nonspecific sclerosis again noted in the left iliac marrow, may reflect a donor site or osteoma, stable from prior. IMPRESSION: Multilevel degenerative disc disease and arthropathy resulting in varying degrees of central and foraminal stenosis stable from the prior exam, including severe L3-4 and moderate L2-3 central stenosis. Dictated by: Brad Maldonado M.D. on 01/16/2021 at 11:05 Approved by: Brad Maldonado M.D. on 01/16/2021 at 12:08
== END ==
PROVIDERS: Family Provider Internal Medicine; PCP Internal Medicine; Referring Provider Physical Medicine & Rehabilitation; Visit Provider Physical Medicine & Rehabilitation
DX: M54.5 Low back pain (principal); M51.36 Other intervertebral disc degeneration, lumbar region; M51.37 Other intervertebral disc degeneration, lumbosacral region; M47.816 Spondylosis without myelopathy or radiculopathy, lumbar region; M48.061 Spinal stenosis, lumbar region without neurogenic claudication; M48.07 Spinal stenosis, lumbosacral region
CPT/HCPCS: 72148

== ENCOUNTER 2021-01-22 09:45 | Outpatient (RCR) | payer OTHER, SELFPAY ==
--- NOTE | 2020-09-04 17:37 | PT.OPPOC ---
Physical, Occupational & Speech Therapy At [facility] Current Diagnoses Low back pain (09/04/20) Difficulty in walking, not elsewhere classified (09/04/20) Other abnormalities of gait and mobility (09/04/20) Abnormal posture (09/04/20) Weakness (09/04/20) Visit Care Team Role Provider Type To Vallejo MD Family Provider Physician Primary Care Provider Specialty: Internal Medicine Address: [address] [place] [address], [id number] Email: [email or web address] Dawna Kolb MD Attending Provider Non-Staff Referring Provider Specialty: Physical Medicine and Rehab Address: [address] [place] [address], [id number] Email: Plan Of Care PT-OP-T Assessment and Plan Start: 09/04/20 12:57 Freq: Status: Active Protocol: Document 09/04/20 14:36 [facility] (Rec: 09/04/20 15:20 [facility] [id number]) Physical Therapy Assessment Rehab Potential Rehabilitation Potential Good Evaluation Complexity Number of Personal Factors/Comorbidities 3 or More Number of Body Systems Impaired 4 or More Clinical Presentation at Evaluation Evolving Impairments Impairments Activity Tolerance,Balance, Functional Activities, Functional Mobility,Gait,Pain, Posture,ROM,Soft Tissue Mobility,Strength,Transfers Goals Four Impairment strength Short Term Goal (STG) Pt will be indep w/HEP STG Duration 10/04/20 Director Safety Goal (LTG) Pt will score at least 3/5 on LPM and have at least 4/5 LE MMT for B hips to improve stability in order to allow him to do his typical activities without inc pain. LTG Duration 11/04/20 Three Impairment walking Short Term Goal (STG) Pt will be able to go for short walks w/o inc pain STG Duration 10/05/20 Director Safety Goal (LTG) Pt will be able to do his typical walk down the hill to the trail and back home without inc pain more than 2 points. LTG Duration 11/04/20 Two Impairment pain Half-Way Goal (LTG) Pt will report no constant pain and only intermittent R hip and back pain that he is able to self manage. LTG Duration 11/04/20 One Impairment balance Director Safety Goal (LTG) Pt will be able to score at least 25/30 on FGA to show dec risk for falls. LTG Duration 11/04/20 Assessment Summary Assessment Pt presents w/reoccurance and worsening of chronic LBP/R hip pain that inc soon after completing last bout of therapy. He d/c PT with good balance, dec pain levels, consistant walking and improved strength in April, but is noting reoccurance soon after completing PT despite doing HEP. He presents with weakness and overall dec balance, impaired gait and impaired posture which all likely contribute to his pain. He would benefit from skilled PT to work on these deficits in order to return to his typical daily activities without inc pain or difficulty . Physical Therapy Plan Frequency and Duration Frequency of Treatment 2x/Week Duration of Treatment 2 months Plan of Care Start Date 09/04/20 Plan of Care End Date 11/04/20 Therapeutic Interventions Therapeutic Interventions Aquatic Therapy,Balance Training,Gait Training,Home Exercise Program,Joint Mobilizations,Manual Therapy, Neuromuscular Re-education, Patient/Caregiver Education, Self-Care/Home Management,Soft Tissue Mobilization,Taping, Therapeutic Activities, Therapeutic Exercises Modalities Cold Pack/Ice Massage,Electric Stimulation,Hot Packs, Ultrasound Next Visit Focus/Plan Next Note Type Treatment Note Next Visit Plan FGA/DGI, review HEP exercises, manual therapy to dec pain, work on core & hip strengthening Plan of Care Dates Plan of Care Start Date 09/04/20 Plan of Care End Date 11/04/20 Electronically Signed by: Reina Rider, PT 09/05/20 [id number] Please Sign and Return: I have reviewed this Plan of Care and certify that the skilled therapy services above are required to meet the patient?s needs. Physician Signature Date Printed Name and Credentials Clinical Instructor Signature Printed Name and Credentials
--- NOTE | 2020-09-04 17:37 | PT.OIE ---
Current Diagnoses Low back pain (09/04/20) Difficulty in walking, not elsewhere classified (09/04/20) Other abnormalities of gait and mobility (09/04/20) Abnormal posture (09/04/20) Weakness (09/04/20) Past Medical History (Last Reviewed 05/23/20 @ 22:33 by DAYSI Patel) Atrial fibrillation (~10/12/17) Cognitive decline Concussion Dizziness Fall (on) (from) other stairs and steps, sequela Fatigue (~11/23/19) Heart disease Low back pain Obstructive sleep apnea of adult Visit Care Team Role Provider Type To Vallejo MD Family Provider Physician Primary Care Provider Specialty: Internal Medicine Address: [address] [address], [phone] Email: [email or web address] Dawna Kolb MD Attending Provider Non-Staff Referring Provider Specialty: Physical Medicine and Rehab Address: [address] [place] [address], [phone] Email: Physical Therapy Initial Evaluation PT-OP-A Visit Information Start: 09/04/20 12:57 Freq: Status: Active Protocol: Document 09/04/20 14:36 [facility] (Rec: 09/04/20 15:20 [facility] [id number]) Out-Patient Physical Therapy Visit Information Visit Information Visit Type Initial Evaluation Visit Note 05/19 Visit Start Time 14:36 Visit Stop Time 15:25 Total Visit Minutes 49 Visit Number 1 Number of LASER ENGINEER Visits 0 PT-OP-B Current Condition Start: 09/04/20 12:57 Freq: Status: Active Protocol: Document 09/04/20 14:36 [facility] (Rec: 09/04/20 15:20 [facility] [id number]) Current Condition History of Current Condition Onset Date chronic w/recent worsening Current Complaints R hip and LBP History of Current Condition Pt reports he is in pain all the time in R hip and R SI region into R LB. He is on ice 1-2x/day d/t pain. Pt has had injections and past PT which have been successful. He cont walking and exercises but once stopped PT, pain started to inc again. Pt reports he is getting fatigued with back pain on his walks and notes pain is just constant. Pt reports no recent falls. Notes picking up something that is heavy is becoming difficult and with bending over like working in the yard. Pt reports he felt like he really improved with activity tolerance for walking, balance and strength when doing PT but now its limited d/t back pain. He had a televisit w/ pain MD who sent him back to PT. Uses cane consistantly outside of the house. 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 Pt going to [facility] for neuro for his memory. Hx R ISMAEL. Usually would walk down to [employer] [address] then going to [place] (3/4 mile) but now they typically drive down and just walk the 3/[address] back. Prior Treatments and Tests PT and injections with good injections Treatment Goals Patient/Caregiver Goals be able to walk further without back fatigue, be able to walk down gravel hill to trail PT-OP-C Subjective Start: 09/04/20 12:57 Freq: Status: Active Protocol: Document 09/04/20 14:36 [facility] (Rec: 09/04/20 15:20 [facility] [id number]) Patient Questionnaires Oswestry Low Back Index Oswestry Score did not complete OP-PT Pain Assessment Location LB Pain Location Details R SI & hip & LB Scale Used 4-5/10 constant,worst 7-8/10 Description Dull Description- Other no zingers; restricts my motion Frequency Constant Radiating Location pain in post leg and wraps around knee Pain Aggravating Factors Standing,Walking,Bending, Lifting Pain Alleviating Factors Cold,Medication PT-OP-D Balance Start: 09/04/20 12:57 Freq: Status: Active Protocol: Document 09/04/20 14:36 [facility] (Rec: 09/04/20 15:20 [facility] [id number]) Balance Tests Waggoner Balance Test Waggoner Balance Test Score 49 Single Limb Standing Single Limb- Right unable Single Limb- Left 2 sec w/UE movement PT-OP-E Functional Tests Start: 09/04/20 12:57 Freq: Status: Active Protocol: Document 09/04/20 14:36 [facility] (Rec: 09/04/20 15:20 [facility] [id number]) Functional Tests 30 Second Sit to Stand Test Score 7 Five Times Sit to Stand Test Score 22 sec PT-OP-F Manual Assessment Start: 09/04/20 12:57 Freq: Status: Active Protocol: Document 09/04/20 14:36 [facility] (Rec: 09/04/20 15:20 [facility] [id number]) Manual Assessments Soft Tissue Assessment Soft Tissue Mobility Assessment tightness in QL & R glute PT-OP-G Mobility & Gait Start: 09/04/20 12:57 Freq: Status: Active Protocol: Document 09/04/20 14:36 [facility] (Rec: 09/04/20 15:20 [facility] [id number]) OP Gait Assessment Comments Gait Comments Dec push off and very rigid upper body and trunk PT-OP-J Posture/Palpation/Skin Start: 09/04/20 12:57 Freq: Status: Active Protocol: Document 09/04/20 14:36 [facility] (Rec: 09/04/20 15:20 [facility] [id number]) Posture Evaluation Augusto Postural Classification System Vertebral Compression Test 2 Elbow Flexion Test 1 Lumbar Protective Mechanism Left AP 1 Lumbar Protective Mechanism Right AP 0 Lumbar Protective Mechanism Left PA 1 Lumbar Protective Mechanism Right PA 1 Comments Posture Comments R plevic shear, fwd flex at hips & inc kyphossis PT-OP-K Range of Motion Start: 09/04/20 12:57 Freq: Status: Active Protocol: Document 09/04/20 14:36 [facility] (Rec: 09/04/20 15:20 [facility] [id number]) Lumbar Spine Range of Motion Lumbar Spine Active Degrees Flexion 29 Extension 5 Rotation Left 40 Rotation Right 43 Lateral Flexion Left 10 Lateral Flexion Right 8 Comments pain w/R and SB R PT-OP-L Special Tests Start: 09/04/20 12:57 Freq: Status: Active Protocol: Document 09/04/20 14:36 [facility] (Rec: 09/04/20 15:20 [facility] [id number]) Special Tests Lumbar Spine Special Tests Juna Test Results tightness signficant B hip flexors Slump Test Results neg B Straight Leg Raise Test Results L 38, R 36 tightness in ACEVEDO PT-OP-M Strength Start: 09/04/20 12:57 Freq: Status: Active Protocol: Document 09/04/20 14:36 [facility] (Rec: 09/04/20 15:20 [facility] [id number]) Hip Strength Hip Manual Muscle Testing Left Flexion (L2) 4- Good- Extension (S1) 4- Good- Abduction 4- Good- External Rotation 4- Good- Internal Rotation 4- Good- Right Flexion (L2) 3 Fair Extension (S1) 3 Fair Abduction 3+ Fair+ External Rotation 3 Fair Internal Rotation 3+ Fair+ Comments pain IR Knee Strength Knee Manual Muscle Testing Right Flexion (S2) 5 Normal Extension (L3) 4+ Good+ Left Flexion (S2) 5 Normal Extension (L3) 4+ Good+ Ankle/Foot Strength Ankle and Foot Manual Muscle Testing Right Dorsiflexion (L4) 5 Normal Comments unable to do good heel rasies w/pushing Left Dorsiflexion (L4) 5 Normal Comments unable to heel raise PT-OP-R Modalities Start: 09/04/20 12:57 Freq: Status: Active Protocol: Document 09/04/20 14:36 [facility] (Rec: 09/04/20 18:01 [facility] [id number]) Hot Pack/Cold Pack Treatment Cold Pack Location LS Patient Position Hooklying Treatment Duration (minutes) 10 PT-OP-T Assessment and Plan Start: 09/04/20 12:57 Freq: Status: Active Protocol: Document 09/04/20 14:36 [facility] (Rec: 09/04/20 15:20 [facility] [id number]) Physical Therapy Assessment Rehab Potential Rehabilitation Potential Good Evaluation Complexity Number of Personal Factors/Comorbidities 3 or More Number of Body Systems Impaired 4 or More Clinical Presentation at Evaluation Evolving Impairments Impairments Activity Tolerance,Balance, Functional Activities, Functional Mobility,Gait,Pain, Posture,ROM,Soft Tissue Mobility,Strength,Transfers Goals Four Impairment strength Short Term Goal (STG) Pt will be indep w/HEP STG Duration 10/04/20 Half-Way Goal (LTG) Pt will score at least 3/5 on LPM and have at least 4/5 LE MMT for B hips to improve stability in order to allow him to do his typical activities without inc pain. LTG Duration 11/04/20 Three Impairment walking Short Term Goal (STG) Pt will be able to go for short walks w/o inc pain STG Duration 10/05/20 Half-Way Goal (LTG) Pt will be able to do his typical walk down the hill to the trail and back home without inc pain more than 2 points. LTG Duration 11/04/20 Two Impairment pain Milieu Counselor Goal (LTG) Pt will report no constant pain and only intermittent R hip and back pain that he is able to self manage. LTG Duration 11/04/20 One Impairment balance Milieu Counselor Goal (LTG) Pt will be able to score at least 25/30 on FGA to show dec risk for falls. LTG Duration 11/04/20 Assessment Summary Assessment Pt presents w/reoccurance and worsening of chronic LBP/R hip pain that inc soon after completing last bout of therapy. He d/c PT with good balance, dec pain levels, consistant walking and improved strength in April, but is noting reoccurance soon after completing PT despite doing HEP. He presents with weakness and overall dec balance, impaired gait and impaired posture which all likely contribute to his pain. He would benefit from skilled PT to work on these deficits in order to return to his typical daily activities without inc pain or difficulty . Physical Therapy Plan Frequency and Duration Frequency of Treatment 2x/Week Duration of Treatment 2 months Plan of Care Start Date 09/04/20 Plan of Care End Date 11/04/20 Therapeutic Interventions Therapeutic Interventions Aquatic Therapy,Balance Training,Gait Training,Home Exercise Program,Joint Mobilizations,Manual Therapy, Neuromuscular Re-education, Patient/Caregiver Education, Self-Care/Home Management,Soft Tissue Mobilization,Taping, Therapeutic Activities, Therapeutic Exercises Modalities Cold Pack/Ice Massage,Electric Stimulation,Hot Packs, Ultrasound Next Visit Focus/Plan Next Note Type Treatment Note Next Visit Plan FGA/DGI, review HEP exercises, manual therapy to dec pain, work on core & hip strengthening
--- NOTE | 2020-09-09 13:47 | PT.OTN ---
Current Diagnoses Low back pain (09/09/20) Difficulty in walking, not elsewhere classified (09/09/20) Other abnormalities of gait and mobility (09/09/20) Abnormal posture (09/09/20) Weakness (09/09/20) Physical Therapy Treatment Note PT-OP-A Visit Information Start: 09/04/20 12:57 Freq: Status: Active Protocol: Document 09/09/20 13:05 [facility] (Rec: 09/09/20 13:47 [facility] [id number]) Out-Patient Physical Therapy Visit Information Visit Information Visit Type Treatment Note Visit Note 06/19 Visit Start Time 13:04 Visit Stop Time 13:54 Total Visit Minutes 50 Visit Number 2 Number of FERMENTOLOGIST Visits 0 PT-OP-B Current Condition Start: 09/04/20 12:57 Freq: Status: Active Protocol: Document 09/04/20 14:36 [facility] (Rec: 09/04/20 15:20 [facility] [id number]) Current Condition History of Current Condition Onset Date chronic w/recent worsening Current Complaints R hip and LBP History of Current Condition Pt reports he is in pain all the time in R hip and R SI region into R LB. He is on ice 1-2x/day d/t pain. Pt has had injections and past PT which have been successful. He cont walking and exercises but once stopped PT, pain started to inc again. Pt reports he is getting fatigued with back pain on his walks and notes pain is just constant. Pt reports no recent falls. Notes picking up something that is heavy is becoming difficult and with bending over like working in the yard. Pt reports he felt like he really improved with activity tolerance for walking, balance and strength when doing PT but now its limited d/t back pain. He had a televisit w/ pain MD who sent him back to PT. Uses cane consistantly outside of the house. 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 Pt going to [facility] for neuro for his memory. Hx R ISMAEL. Usually would walk down to [place] [address] then going to [place] (3/4 mile) but now they typically drive down and just walk the 3/[address] back. Prior Treatments and Tests PT and injections with good injections Treatment Goals Patient/Caregiver Goals be able to walk further without back fatigue, be able to walk down gravel hill to trail PT-OP-C Subjective Start: 09/04/20 12:57 Freq: Status: Active Protocol: Document 09/09/20 13:05 [facility] (Rec: 09/09/20 13:47 [facility] [id number]) OP-PT Subjective Patient Comments Patient Comments Pt reprots using walking sticks for long walks to help w posture PT-OP-D Balance Start: 09/04/20 12:57 Freq: Status: Active Protocol: Document 09/04/20 14:36 [facility] (Rec: 09/04/20 15:20 [facility] [id number]) Balance Tests Waggoner Balance Test Waggoner Balance Test Score 49 Single Limb Standing Single Limb- Right unable Single Limb- Left 2 sec w/UE movement PT-OP-E Functional Tests Start: 09/04/20 12:57 Freq: Status: Active Protocol: Document 09/04/20 14:36 [facility] (Rec: 09/04/20 15:20 [facility] [id number]) Functional Tests 30 Second Sit to Stand Test Score 7 Five Times Sit to Stand Test Score 22 sec PT-OP-F Manual Assessment Start: 09/04/20 12:57 Freq: Status: Active Protocol: Document 09/04/20 14:36 [facility] (Rec: 09/04/20 15:20 [facility] [id number]) Manual Assessments Soft Tissue Assessment Soft Tissue Mobility Assessment tightness in QL & R glute PT-OP-G Mobility & Gait Start: 09/04/20 12:57 Freq: Status: Active Protocol: Document 09/04/20 14:36 [facility] (Rec: 09/04/20 15:20 [facility] [id number]) OP Gait Assessment Comments Gait Comments Dec push off and very rigid upper body and trunk PT-OP-J Posture/Palpation/Skin Start: 09/04/20 12:57 Freq: Status: Active Protocol: Document 09/04/20 14:36 [facility] (Rec: 09/04/20 15:20 [facility] [id number]) Posture Evaluation Augusto Postural Classification System Vertebral Compression Test 2 Elbow Flexion Test 1 Lumbar Protective Mechanism Left AP 1 Lumbar Protective Mechanism Right AP 0 Lumbar Protective Mechanism Left PA 1 Lumbar Protective Mechanism Right PA 1 Comments Posture Comments R plevic shear, fwd flex at hips & inc kyphossis PT-OP-K Range of Motion Start: 09/04/20 12:57 Freq: Status: Active Protocol: Document 09/04/20 14:36 [facility] (Rec: 09/04/20 15:20 [facility] [id number]) Lumbar Spine Range of Motion Lumbar Spine Active Degrees Flexion 29 Extension 5 Rotation Left 40 Rotation Right 43 Lateral Flexion Left 10 Lateral Flexion Right 8 Comments pain w/R and SB R PT-OP-L Special Tests Start: 09/04/20 12:57 Freq: Status: Active Protocol: Document 09/04/20 14:36 [facility] (Rec: 09/04/20 15:20 [facility] [id number]) Special Tests Lumbar Spine Special Tests Juan Test Results tightness signficant B hip flexors Slump Test Results neg B Straight Leg Raise Test Results L 38, R 36 tightness in ACEVEDO PT-OP-M Strength Start: 09/04/20 12:57 Freq: Status: Active Protocol: Document 09/04/20 14:36 [facility] (Rec: 09/04/20 15:20 [facility] [id number]) Hip Strength Hip Manual Muscle Testing Left Flexion (L2) 4- Good- Extension (S1) 4- Good- Abduction 4- Good- External Rotation 4- Good- Internal Rotation 4- Good- Right Flexion (L2) 3 Fair Extension (S1) 3 Fair Abduction 3+ Fair+ External Rotation 3 Fair Internal Rotation 3+ Fair+ Comments pain IR Knee Strength Knee Manual Muscle Testing Right Flexion (S2) 5 Normal Extension (L3) 4+ Good+ Left Flexion (S2) 5 Normal Extension (L3) 4+ Good+ Ankle/Foot Strength Ankle and Foot Manual Muscle Testing Right Dorsiflexion (L4) 5 Normal Comments unable to do good heel rasies w/pushing Left Dorsiflexion (L4) 5 Normal Comments unable to heel raise PT-OP-Q Treatments Start: 09/04/20 12:57 Freq: Status: Active Protocol: Document 09/09/20 13:05 [facility] (Rec: 09/09/20 13:47 [facility] [id number]) Cardio Equipment Recumbent Bicycle Duration (Minutes) 5 Resistance 8 Seat Position 12 Therapeutic Exercises Supine Exercises Tabd Supine Exercise Name 1. SLR 2. alt march Side bilateral Reps/Minutes 10 ea 2 Supine Exercise Name pelvic tilt Reps/Minutes 5 sec x10 Standing Exercises 7 Standing Exercise Name pec stretch Side bilateral Reps/Minutes 30 sec x2 6 Standing Exercise Name wall posture w/B shoulder ext Reps/Minutes 1 min 5 Standing Exercise Name squats mini Side bilateral Reps/Minutes 15 Comments focus on posture Manual Therapy Treatment Soft Tissue Mobilization 4 Body Location R glute & scar Mobilization Type Rolling,Sustained Pressure Intensity/Depth Moderate Body Position Prone Comments w/hip ER/IR Neuro Re-Education Treatment Other Activities 1 Comments FGA:18 DGI: PT-OP-R Modalities Start: 09/04/20 12:57 Freq: Status: Active Protocol: Document 09/09/20 13:05 [facility] (Rec: 09/09/20 13:47 [facility] [id number]) Hot Pack/Cold Pack Treatment Cold Pack Location LS Patient Position Hooklying Treatment Duration (minutes) 10 PT-OP-T Assessment and Plan Start: 09/04/20 12:57 Freq: Status: Active Protocol: Document 09/09/20 13:05 [facility] (Rec: 09/09/20 13:47 [facility] [id number]) Physical Therapy Assessment Goals Four Impairment strength Short Term Goal (STG) Pt will be indep w/HEP STG Duration 10/04/20 Steel Heater Goal (LTG) Pt will score at least 3/5 on LPM and have at least 4/5 LE MMT for B hips to improve stability in order to allow him to do his typical activities without inc pain. LTG Duration 11/04/20 Three Impairment walking Short Term Goal (STG) Pt will be able to go for short walks w/o inc pain STG Duration 10/05/20 Steel Heater Goal (LTG) Pt will be able to do his typical walk down the hill to the trail and back home without inc pain more than 2 points. LTG Duration 11/04/20 Two Impairment pain Care Home Goal (LTG) Pt will report no constant pain and only intermittent R hip and back pain that he is able to self manage. LTG Duration 11/04/20 One Impairment balance Care Home Goal (LTG) Pt will be able to score at least 25/30 on FGA to show dec risk for falls. LTG Duration 11/04/20 Assessment Summary Assessment Pt required cueing for form with all exercises with foucs on posture w/standing exercisesa dn focus on set up for core activiation before leg lifts in supine. He did well with DGI and showed just slight dec balance w/FGA as compared w/past. Significant trigger points in upper glutes Physical Therapy Plan Frequency and Duration Frequency of Treatment 2x/Week Duration of Treatment 2 months Plan of Care Start Date 09/04/20 Plan of Care End Date 11/04/20 Next Visit Focus/Plan Next Note Type Treatment Note Next Visit Plan review exericses, manual for dec pain, PNF & core/hip stability
--- NOTE | 2020-09-11 16:02 | PT.OTN ---
Current Diagnoses Low back pain (09/11/20) Difficulty in walking, not elsewhere classified (09/11/20) Other abnormalities of gait and mobility (09/11/20) Abnormal posture (09/11/20) Weakness (09/11/20) Physical Therapy Treatment Note PT-OP-A Visit Information Start: 09/04/20 12:57 Freq: Status: Active Protocol: Document 09/11/20 15:22 [facility] (Rec: 09/11/20 16:02 [facility] [id number]) Out-Patient Physical Therapy Visit Information Visit Information Visit Type Treatment Note Visit Note 07/17 Visit Start Time 15:15 Visit Stop Time 15:58 Total Visit Minutes 43 Visit Number 3 Number of OIL BURNER SERVICER AND INSTALLER Visits 0 PT-OP-B Current Condition Start: 09/04/20 12:57 Freq: Status: Active Protocol: Document 09/04/20 14:36 [facility] (Rec: 09/04/20 15:20 [facility] [id number]) Current Condition History of Current Condition Onset Date chronic w/recent worsening Current Complaints R hip and LBP History of Current Condition Pt reports he is in pain all the time in R hip and R SI region into R LB. He is on ice 1-2x/day d/t pain. Pt has had injections and past PT which have been successful. He cont walking and exercises but once stopped PT, pain started to inc again. Pt reports he is getting fatigued with back pain on his walks and notes pain is just constant. Pt reports no recent falls. Notes picking up something that is heavy is becoming difficult and with bending over like working in the yard. Pt reports he felt like he really improved with activity tolerance for walking, balance and strength when doing PT but now its limited d/t back pain. He had a televisit w/ pain MD who sent him back to PT. Uses cane consistantly outside of the house. 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 Pt going to [facility] for neuro for his memory. Hx R ISMAEL. [place] to [address] then [place] (3/4 mile) but now they typically drive down and just walk the 3/[address] back. Prior Treatments and Tests PT and injections with good injections Treatment Goals Patient/Caregiver Goals be able to walk further without back fatigue, be able to walk down gravel hill to trail PT-OP-C Subjective Start: 09/04/20 12:57 Freq: Status: Active Protocol: Document 09/11/20 15:22 [facility] (Rec: 09/11/20 16:02 [facility] [id number]) OP-PT Subjective Patient Comments Patient Comments Pt reprots used massager on back and it helped a lot . PT-OP-D Balance Start: 09/04/20 12:57 Freq: Status: Active Protocol: Document 09/04/20 14:36 [facility] (Rec: 09/04/20 15:20 [facility] [id number]) Balance Tests Waggoner Balance Test Waggoner Balance Test Score 49 Single Limb Standing Single Limb- Right unable Single Limb- Left 2 sec w/UE movement PT-OP-E Functional Tests Start: 09/04/20 12:57 Freq: Status: Active Protocol: Document 09/04/20 14:36 [facility] (Rec: 09/04/20 15:20 [facility] [id number]) Functional Tests 30 Second Sit to Stand Test Score 7 Five Times Sit to Stand Test Score 22 sec PT-OP-F Manual Assessment Start: 09/04/20 12:57 Freq: Status: Active Protocol: Document 09/04/20 14:36 [facility] (Rec: 09/04/20 15:20 [facility] [id number]) Manual Assessments Soft Tissue Assessment Soft Tissue Mobility Assessment tightness in QL & R glute PT-OP-G Mobility & Gait Start: 09/04/20 12:57 Freq: Status: Active Protocol: Document 09/04/20 14:36 [facility] (Rec: 09/04/20 15:20 [facility] [id number]) OP Gait Assessment Comments Gait Comments Dec push off and very rigid upper body and trunk PT-OP-J Posture/Palpation/Skin Start: 09/04/20 12:57 Freq: Status: Active Protocol: Document 09/04/20 14:36 [facility] (Rec: 09/04/20 15:20 [facility] [id number]) Posture Evaluation Augusto Postural Classification System Vertebral Compression Test 2 Elbow Flexion Test 1 Lumbar Protective Mechanism Left AP 1 Lumbar Protective Mechanism Right AP 0 Lumbar Protective Mechanism Left PA 1 Lumbar Protective Mechanism Right PA 1 Comments Posture Comments R plevic shear, fwd flex at hips & inc kyphossis PT-OP-K Range of Motion Start: 09/04/20 12:57 Freq: Status: Active Protocol: Document 09/04/20 14:36 [facility] (Rec: 09/04/20 15:20 [facility] [id number]) Lumbar Spine Range of Motion Lumbar Spine Active Degrees Flexion 29 Extension 5 Rotation Left 40 Rotation Right 43 Lateral Flexion Left 10 Lateral Flexion Right 8 Comments pain w/R and SB R PT-OP-L Special Tests Start: 09/04/20 12:57 Freq: Status: Active Protocol: Document 09/04/20 14:36 [facility] (Rec: 09/04/20 15:20 [facility] [id number]) Special Tests Lumbar Spine Special Tests Juan Test Results tightness signficant B hip flexors Slump Test Results neg B Straight Leg Raise Test Results L 38, R 36 tightness in ACEVEDO PT-OP-M Strength Start: 09/04/20 12:57 Freq: Status: Active Protocol: Document 09/04/20 14:36 [facility] (Rec: 09/04/20 15:20 [facility] [id number]) Hip Strength Hip Manual Muscle Testing Left Flexion (L2) 4- Good- Extension (S1) 4- Good- Abduction 4- Good- External Rotation 4- Good- Internal Rotation 4- Good- Right Flexion (L2) 3 Fair Extension (S1) 3 Fair Abduction 3+ Fair+ External Rotation 3 Fair Internal Rotation 3+ Fair+ Comments pain IR Knee Strength Knee Manual Muscle Testing Right Flexion (S2) 5 Normal Extension (L3) 4+ Good+ Left Flexion (S2) 5 Normal Extension (L3) 4+ Good+ Ankle/Foot Strength Ankle and Foot Manual Muscle Testing Right Dorsiflexion (L4) 5 Normal Comments unable to do good heel rasies w/pushing Left Dorsiflexion (L4) 5 Normal Comments unable to heel raise PT-OP-Q Treatments Start: 09/04/20 12:57 Freq: Status: Active Protocol: Document 09/11/20 15:22 [facility] (Rec: 09/11/20 16:02 [facility] [id number]) Therapeutic Exercises Standing Exercises 6 Standing Exercise Name wall posture w/B shoulder ext Reps/Minutes 1 min 5 Standing Exercise Name squats mini Side bilateral Reps/Minutes 15 Comments focus on posture 4 Standing Exercise Name hip hikes Side bilateral Reps/Minutes 15 3 Standing Exercise Name step ups w/alt march Side bilateral Reps/Minutes 10 2 Standing Exercise Name hip ext Side bilateral Equipment Used L1 Reps/Minutes 2x10 Manual Therapy Treatment Soft Tissue Mobilization 4 Body Location R glute & scar Mobilization Type Rolling,Sustained Pressure Intensity/Depth Moderate Body Position Prone Comments w/hip ER/IR Joint Mobilizations 3 Joint R hip Direction on axis ER FM Neuro Re-Education Treatment Balance Activities 5 Details tandem stance trials B Comments shoed and barefoot PT-OP-R Modalities Start: 09/04/20 12:57 Freq: Status: Active Protocol: Document 09/09/20 13:05 [facility] (Rec: 09/09/20 13:47 [facility] [id number]) Hot Pack/Cold Pack Treatment Cold Pack Location LS Patient Position Hooklying Treatment Duration (minutes) 10 PT-OP-T Assessment and Plan Start: 09/04/20 12:57 Freq: Status: Active Protocol: Document 09/11/20 15:22 [facility] (Rec: 09/11/20 16:02 [facility] [id number]) Physical Therapy Assessment Goals Four Impairment strength Short Term Goal (STG) Pt will be indep w/HEP STG Duration 10/04/20 Hvac Design Engineer Goal (LTG) Pt will score at least 3/5 on LPM and have at least 4/5 LE MMT for B hips to improve stability in order to allow him to do his typical activities without inc pain. LTG Duration 11/04/20 Three Impairment walking Short Term Goal (STG) Pt will be able to go for short walks w/o inc pain STG Duration 10/05/20 Fpc Goal (LTG) Pt will be able to do his typical walk down the hill to the trail and back home without inc pain more than 2 points. LTG Duration 11/04/20 Two Impairment pain Hvac Design Engineer Goal (LTG) Pt will report no constant pain and only intermittent R hip and back pain that he is able to self manage. LTG Duration 11/04/20 One Impairment balance Hvac Design Engineer Goal (LTG) Pt will be able to score at least 25/30 on FGA to show dec risk for falls. LTG Duration 11/04/20 Assessment Summary Assessment Improved exercise form today with less cueing. He does require cueing for posture w/ hip ext though and to straighten R knee fully duirng step up and july. Imrpoved balance barefoot vs shoed today noted. Pt improved w/ tolerance to hip STM today compared to wednesday w/improved mobility of tissues. Physical Therapy Plan Frequency and Duration Frequency of Treatment 2x/Week Duration of Treatment 2 months Plan of Care Start Date 09/04/20 Plan of Care End Date 11/04/20 Next Visit Focus/Plan Next Note Type Treatment Note Next Visit Plan review exericses, manual for dec pain, PNF & core/hip stability
--- NOTE | 2020-09-17 08:30 | PT.OTN ---
Current Diagnoses Low back pain (09/17/20) Difficulty in walking, not elsewhere classified (09/17/20) Other abnormalities of gait and mobility (09/17/20) Abnormal posture (09/17/20) Weakness (09/17/20) Physical Therapy Treatment Note PT-OP-A Visit Information Start: 09/04/20 12:57 Freq: Status: Active Protocol: Document 09/17/20 07:33 [facility] (Rec: 09/17/20 08:30 [facility] [id number]) Out-Patient Physical Therapy Visit Information Visit Information Visit Type Treatment Note Visit Note 08/17 Visit Start Time 07:30 Visit Stop Time 08:20 Total Visit Minutes 50 Visit Number 4 Number of BULL RIVETER Visits 0 PT-OP-B Current Condition Start: 09/04/20 12:57 Freq: Status: Active Protocol: Document 09/04/20 14:36 [facility] (Rec: 09/04/20 15:20 [facility] [id number]) Current Condition History of Current Condition Onset Date chronic w/recent worsening Current Complaints R hip and LBP History of Current Condition Pt reports he is in pain all the time in R hip and R SI region into R LB. He is on ice 1-2x/day d/t pain. Pt has had injections and past PT which have been successful. He cont walking and exercises but once stopped PT, pain started to inc again. Pt reports he is getting fatigued with back pain on his walks and notes pain is just constant. Pt reports no recent falls. Notes picking up something that is heavy is becoming difficult and with bending over like working in the yard. Pt reports he felt like he really improved with activity tolerance for walking, balance and strength when doing PT but now its limited d/t back pain. He had a televisit w/ pain MD who sent him back to PT. Uses cane consistantly outside of the house. 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 Pt going to [facility] for neuro for his memory. Hx R ISMAEL. [place] would walk [place] to [address] then [place] (3/4 mile) but now they typically drive down and just walk the 3/[address] back. Prior Treatments and Tests PT and injections with good injections Treatment Goals Patient/Caregiver Goals be able to walk further without back fatigue, be able to walk down gravel hill to trail PT-OP-C Subjective Start: 09/04/20 12:57 Freq: Status: Active Protocol: Document 09/17/20 07:33 [facility] (Rec: 09/17/20 08:30 [facility] [id number]) OP-PT Subjective Patient Comments Patient Comments Pt reports his has been getting on him about his posture and he is getting out for small walks. She has also been using a massager on him which helps. Lately feeling okay after the walks. PT-OP-D Balance Start: 09/04/20 12:57 Freq: Status: Active Protocol: Document 09/04/20 14:36 [facility] (Rec: 09/04/20 15:20 [facility] [id number]) Balance Tests Waggoner Balance Test Waggoner Balance Test Score 49 Single Limb Standing Single Limb- Right unable Single Limb- Left 2 sec w/UE movement PT-OP-E Functional Tests Start: 09/04/20 12:57 Freq: Status: Active Protocol: Document 09/04/20 14:36 [facility] (Rec: 09/04/20 15:20 [facility] [id number]) Functional Tests 30 Second Sit to Stand Test Score 7 Five Times Sit to Stand Test Score 22 sec PT-OP-F Manual Assessment Start: 09/04/20 12:57 Freq: Status: Active Protocol: Document 09/04/20 14:36 [facility] (Rec: 09/04/20 15:20 [facility] [id number]) Manual Assessments Soft Tissue Assessment Soft Tissue Mobility Assessment tightness in QL & R glute PT-OP-G Mobility & Gait Start: 09/04/20 12:57 Freq: Status: Active Protocol: Document 09/04/20 14:36 [facility] (Rec: 09/04/20 15:20 [facility] [id number]) OP Gait Assessment Comments Gait Comments Dec push off and very rigid upper body and trunk PT-OP-J Posture/Palpation/Skin Start: 09/04/20 12:57 Freq: Status: Active Protocol: Document 09/04/20 14:36 [facility] (Rec: 09/04/20 15:20 [facility] [id number]) Posture Evaluation Augusto Postural Classification System Vertebral Compression Test 2 Elbow Flexion Test 1 Lumbar Protective Mechanism Left AP 1 Lumbar Protective Mechanism Right AP 0 Lumbar Protective Mechanism Left PA 1 Lumbar Protective Mechanism Right PA 1 Comments Posture Comments R plevic shear, fwd flex at hips & inc kyphossis PT-OP-K Range of Motion Start: 09/04/20 12:57 Freq: Status: Active Protocol: Document 09/04/20 14:36 [facility] (Rec: 09/04/20 15:20 [facility] [id number]) Lumbar Spine Range of Motion Lumbar Spine Active Degrees Flexion 29 Extension 5 Rotation Left 40 Rotation Right 43 Lateral Flexion Left 10 Lateral Flexion Right 8 Comments pain w/R and SB R PT-OP-L Special Tests Start: 09/04/20 12:57 Freq: Status: Active Protocol: Document 09/04/20 14:36 [facility] (Rec: 09/04/20 15:20 [facility] [id number]) Special Tests Lumbar Spine Special Tests Juan Test Results tightness signficant B hip flexors Slump Test Results neg B Straight Leg Raise Test Results L 38, R 36 tightness in ACEVEDO PT-OP-M Strength Start: 09/04/20 12:57 Freq: Status: Active Protocol: Document 09/04/20 14:36 [facility] (Rec: 09/04/20 15:20 [facility] [id number]) Hip Strength Hip Manual Muscle Testing Left Flexion (L2) 4- Good- Extension (S1) 4- Good- Abduction 4- Good- External Rotation 4- Good- Internal Rotation 4- Good- Right Flexion (L2) 3 Fair Extension (S1) 3 Fair Abduction 3+ Fair+ External Rotation 3 Fair Internal Rotation 3+ Fair+ Comments pain IR Knee Strength Knee Manual Muscle Testing Right Flexion (S2) 5 Normal Extension (L3) 4+ Good+ Left Flexion (S2) 5 Normal Extension (L3) 4+ Good+ Ankle/Foot Strength Ankle and Foot Manual Muscle Testing Right Dorsiflexion (L4) 5 Normal Comments unable to do good heel rasies w/pushing Left Dorsiflexion (L4) 5 Normal Comments unable to heel raise PT-OP-Q Treatments Start: 09/04/20 12:57 Freq: Status: Active Protocol: Document 09/17/20 07:33 [facility] (Rec: 09/17/20 08:30 [facility] [id number]) Cardio Equipment Recumbent Bicycle Duration (Minutes) 5 Resistance 10 Seat Position 12 Therapeutic Exercises Standing Exercises 7 Standing Exercise Name [facility] bilateral Reps/Minutes 20sec Comments w/rail focus on upright posture & glute 6 Standing Exercise Name wall posture w/B shoulder ext Reps/Minutes 1 min 5 Standing Exercise Name squats mini Side bilateral Reps/Minutes 15 Comments focus on posture 4 Standing Exercise Name hip hikes Side bilateral Reps/Minutes 15 3 Standing Exercise Name step ups w/alt march Side bilateral Equipment Used 8 in step Reps/Minutes 10 2 Standing Exercise Name hip ext Side bilateral Equipment Used L1 Reps/Minutes 2x10 Manual Therapy Treatment Soft Tissue Mobilization 4 Body Location R glute & scar Mobilization Type Rolling,Sustained Pressure Intensity/Depth Moderate Body Position Prone Comments w/hip ER/IR Neuro Re-Education Treatment Balance Activities 5 Details tandem stance trials B PT-OP-R Modalities Start: 09/04/20 12:57 Freq: Status: Active Protocol: Document 09/17/20 07:33 [facility] (Rec: 09/17/20 08:30 [facility] [id number]) Hot Pack/Cold Pack Treatment Cold Pack Location LS Patient Position Hooklying Treatment Duration (minutes) 10 PT-OP-T Assessment and Plan Start: 09/04/20 12:57 Freq: Status: Active Protocol: Document 09/17/20 07:33 [facility] (Rec: 09/17/20 08:30 [facility] [id number]) Physical Therapy Assessment Goals Four Impairment strength Short Term Goal (STG) Pt will be indep w/HEP STG Duration 10/04/20 Clay Dry Press Helper Goal (LTG) Pt will score at least 3/5 on LPM and have at least 4/5 LE MMT for B hips to improve stability in order to allow him to do his typical activities without inc pain. LTG Duration 11/04/20 Three Impairment walking Short Term Goal (STG) Pt will be able to go for short walks w/o inc pain STG Duration 10/05/20 Clay Dry Press Helper Goal (LTG) Pt will be able to do his typical walk down the hill to the trail and back home without inc pain more than 2 points. LTG Duration 11/04/20 Two Impairment pain Residential Goal (LTG) Pt will report no constant pain and only intermittent R hip and back pain that he is able to self manage. LTG Duration 11/04/20 One Impairment balance Clay Dry Press Helper Goal (LTG) Pt will be able to score at least 25/30 on FGA to show dec risk for falls. LTG Duration 11/04/20 Assessment Summary Assessment Pt did much better with squats and wall psoture exercise. He has significant difficulty with getting hip under himself w/hip hikes but could would static july. Physical Therapy Plan Frequency and Duration Frequency of Treatment 2x/Week Duration of Treatment 2 months Plan of Care Start Date 09/04/20 Plan of Care End Date 11/04/20 Next Visit Focus/Plan Next Note Type Treatment Note Next Visit Plan cont to advance hip strength, manual for dec pain, PNF & core/hip stability
--- NOTE | 2020-09-19 11:30 | PT.OTN ---
Current Diagnoses Low back pain (09/19/20) Difficulty in walking, not elsewhere classified (09/19/20) Other abnormalities of gait and mobility (09/19/20) Abnormal posture (09/19/20) Weakness (09/19/20) Physical Therapy Treatment Note PT-OP-A Visit Information Start: 09/04/20 12:57 Freq: Status: Active Protocol: Document 09/19/20 10:34 [facility] (Rec: 09/19/20 11:30 [facility] [id number]) Out-Patient Physical Therapy Visit Information Visit Information Visit Type Treatment Note Visit Note 09/16 Visit Start Time 10:33 Visit Stop Time 11:17 Total Visit Minutes 53 Visit Number 5 Number of CHANGE MANAGEMENT ADMINISTRATOR Visits 0 PT-OP-B Current Condition Start: 09/04/20 12:57 Freq: Status: Active Protocol: Document 09/04/20 14:36 [facility] (Rec: 09/04/20 15:20 [facility] [id number]) Current Condition History of Current Condition Onset Date chronic w/recent worsening Current Complaints R hip and LBP History of Current Condition Pt reports he is in pain all the time in R hip and R SI region into R LB. He is on ice 1-2x/day d/t pain. Pt has had injections and past PT which have been successful. He cont walking and exercises but once stopped PT, pain started to inc again. Pt reports he is getting fatigued with back pain on his walks and notes pain is just constant. Pt reports no recent falls. Notes picking up something that is heavy is becoming difficult and with bending over like working in the yard. Pt reports he felt like he really improved with activity tolerance for walking, balance and strength when doing PT but now its limited d/t back pain. He had a televisit w/ pain MD who sent him back to PT. Uses cane consistantly outside of the house. 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 Pt going to [facility] for neuro for his memory. Hx R ISMAEL. [place] to [address] then going [place] (3/4 mile) but now they typically drive down and just walk the 3/[address] back. Prior Treatments and Tests PT and injections with good injections Treatment Goals Patient/Caregiver Goals be able to walk further without back fatigue, be able to walk down gravel hill to trail PT-OP-C Subjective Start: 09/04/20 12:57 Freq: Status: Active Protocol: Document 09/19/20 10:34 [facility] (Rec: 09/19/20 11:30 [facility] [id number]) OP-PT Subjective Patient Comments Patient Comments Pt reports ack has been up and down. He walked the shorter side of [place] then walked the beach back. His back was sore after that so he sat in chair on ice and did the massager to his back PT-OP-D Balance Start: 09/04/20 12:57 Freq: Status: Active Protocol: Document 09/04/20 14:36 [facility] (Rec: 09/04/20 15:20 [facility] [id number]) Balance Tests Waggoner Balance Test Waggoner Balance Test Score 49 Single Limb Standing Single Limb- Right unable Single Limb- Left 2 sec w/UE movement PT-OP-E Functional Tests Start: 09/04/20 12:57 Freq: Status: Active Protocol: Document 09/04/20 14:36 [facility] (Rec: 09/04/20 15:20 [facility] [id number]) Functional Tests 30 Second Sit to Stand Test Score 7 Five Times Sit to Stand Test Score 22 sec PT-OP-F Manual Assessment Start: 09/04/20 12:57 Freq: Status: Active Protocol: Document 09/04/20 14:36 [facility] (Rec: 09/04/20 15:20 [facility] [id number]) Manual Assessments Soft Tissue Assessment Soft Tissue Mobility Assessment tightness in QL & R glute PT-OP-G Mobility & Gait Start: 09/04/20 12:57 Freq: Status: Active Protocol: Document 09/04/20 14:36 [facility] (Rec: 09/04/20 15:20 [facility] [id number]) OP Gait Assessment Comments Gait Comments Dec push off and very rigid upper body and trunk PT-OP-J Posture/Palpation/Skin Start: 09/04/20 12:57 Freq: Status: Active Protocol: Document 09/04/20 14:36 [facility] (Rec: 09/04/20 15:20 [facility] [id number]) Posture Evaluation Augusto Postural Classification System Vertebral Compression Test 2 Elbow Flexion Test 1 Lumbar Protective Mechanism Left AP 1 Lumbar Protective Mechanism Right AP 0 Lumbar Protective Mechanism Left PA 1 Lumbar Protective Mechanism Right PA 1 Comments Posture Comments R plevic shear, fwd flex at hips & inc kyphossis PT-OP-K Range of Motion Start: 09/04/20 12:57 Freq: Status: Active Protocol: Document 09/04/20 14:36 [facility] (Rec: 09/04/20 15:20 [facility] [id number]) Lumbar Spine Range of Motion Lumbar Spine Active Degrees Flexion 29 Extension 5 Rotation Left 40 Rotation Right 43 Lateral Flexion Left 10 Lateral Flexion Right 8 Comments pain w/R and SB R PT-OP-L Special Tests Start: 09/04/20 12:57 Freq: Status: Active Protocol: Document 09/04/20 14:36 [facility] (Rec: 09/04/20 15:20 [facility] [id number]) Special Tests Lumbar Spine Special Tests Juan Test Results tightness signficant B hip flexors Slump Test Results neg B Straight Leg Raise Test Results L 38, R 36 tightness in ACEVEDO PT-OP-M Strength Start: 09/04/20 12:57 Freq: Status: Active Protocol: Document 09/04/20 14:36 [facility] (Rec: 09/04/20 15:20 [facility] [id number]) Hip Strength Hip Manual Muscle Testing Left Flexion (L2) 4- Good- Extension (S1) 4- Good- Abduction 4- Good- External Rotation 4- Good- Internal Rotation 4- Good- Right Flexion (L2) 3 Fair Extension (S1) 3 Fair Abduction 3+ Fair+ External Rotation 3 Fair Internal Rotation 3+ Fair+ Comments pain IR Knee Strength Knee Manual Muscle Testing Right Flexion (S2) 5 Normal Extension (L3) 4+ Good+ Left Flexion (S2) 5 Normal Extension (L3) 4+ Good+ Ankle/Foot Strength Ankle and Foot Manual Muscle Testing Right Dorsiflexion (L4) 5 Normal Comments unable to do good heel rasies w/pushing Left Dorsiflexion (L4) 5 Normal Comments unable to heel raise PT-OP-Q Treatments Start: 09/04/20 12:57 Freq: Status: Active Protocol: Document 09/19/20 10:34 [facility] (Rec: 09/19/20 11:30 [facility] [id number]) Cardio Equipment Recumbent Bicycle Duration (Minutes) 5 Resistance 11 Seat Position 12 Therapeutic Exercises Standing Exercises 7 Standing Exercise Name march [facility] Side bilateral Reps/Minutes 20sec Comments w/rail focus on upright posture & glute 6 Standing Exercise Name hip flexor stretch Side bilateral Reps/Minutes 1 min each 5 Standing Exercise Name squats mini Side bilateral Equipment Used over chair to inc range Reps/Minutes 15 Comments focus on posture 3 Standing Exercise Name step ups w/alt march Side bilateral Equipment Used 8 in step Reps/Minutes 10 2 Standing Exercise Name hip ext Side bilateral Equipment Used L1 Reps/Minutes 2x10 1 Standing Exercise Name side step Side bilateral Reps/Minutes 20ft Comments focus on core and posture Manual Therapy Treatment Soft Tissue Mobilization 4 Body Location R glute & scar Mobilization Type Rolling,Sustained Pressure Intensity/Depth Moderate Body Position Prone Comments w/hip ER/IR Joint Mobilizations 3 Joint R hip Direction on axis ER FM 2 Joint sacrum Direction R UPA FM 1 Joint R innominate Direction R ER FM PT-OP-R Modalities Start: 09/04/20 12:57 Freq: Status: Active Protocol: Document 09/19/20 10:34 [facility] (Rec: 09/19/20 11:30 [facility] [id number]) Hot Pack/Cold Pack Treatment Cold Pack Location LS Patient Position Hooklying Treatment Duration (minutes) 10 PT-OP-T Assessment and Plan Start: 09/04/20 12:57 Freq: Status: Active Protocol: Document 09/19/20 10:34 [facility] (Rec: 09/19/20 11:30 [facility] [id number]) Physical Therapy Assessment Goals Four Impairment strength Short Term Goal (STG) Pt will be indep w/HEP STG Duration 10/04/20 Retirement Goal (LTG) Pt will score at least 3/5 on LPM and have at least 4/5 LE MMT for B hips to improve stability in order to allow him to do his typical activities without inc pain. LTG Duration 11/04/20 Three Impairment walking Short Term Goal (STG) Pt will be able to go for short walks w/o inc pain STG Duration 10/05/20 Press Box Custodian Goal (LTG) Pt will be able to do his typical walk down the hill to the trail and back home without inc pain more than 2 points. LTG Duration 11/04/20 Two Impairment pain Press Box Custodian Goal (LTG) Pt will report no constant pain and only intermittent R hip and back pain that he is able to self manage. LTG Duration 11/04/20 One Impairment balance Press Box Custodian Goal (LTG) Pt will be able to score at least 25/30 on FGA to show dec risk for falls. LTG Duration 11/04/20 Assessment Summary Assessment Pt did well with exercises today and realized when working on quads ext w/step ups that he had torn R quad w/ full avulsion and no treatment to it. It apperas like potentially 1 muscles as he still does have quad activation & motion but this will affect his ability to push off. He is improving with upright posture during exercise but does requrie cues . Physical Therapy Plan Frequency and Duration Frequency of Treatment 2x/Week Duration of Treatment 2 months Plan of Care Start Date 09/04/20 Plan of Care End Date 11/04/20 Next Visit Focus/Plan Next Note Type Treatment Note Next Visit Plan cont to advance hip strength, manual for dec pain, PNF & core/hip stability
--- NOTE | 2020-09-23 09:51 | PT.OTN ---
Current Diagnoses Low back pain (09/23/20) Difficulty in walking, not elsewhere classified (09/23/20) Other abnormalities of gait and mobility (09/23/20) Abnormal posture (09/23/20) Weakness (09/23/20) Physical Therapy Treatment Note PT-OP-A Visit Information Start: 09/04/20 12:57 Freq: Status: Active Protocol: Document 09/23/20 09:07 [facility] (Rec: 09/23/20 09:50 [facility] [id number]) Out-Patient Physical Therapy Visit Information Visit Information Visit Type Treatment Note Visit Note 10/17 Visit Start Time 09:03 Visit Stop Time 09:53 Total Visit Minutes 50 Visit Number 6 Number of SACK LIFTER Visits 0 PT-OP-B Current Condition Start: 09/04/20 12:57 Freq: Status: Active Protocol: Document 09/04/20 14:36 [facility] (Rec: 09/04/20 15:20 [facility] [id number]) Current Condition History of Current Condition Onset Date chronic w/recent worsening Current Complaints R hip and LBP History of Current Condition Pt reports he is in pain all the time in R hip and R SI region into R LB. He is on ice 1-2x/day d/t pain. Pt has had injections and past PT which have been successful. He cont walking and exercises but once stopped PT, pain started to inc again. Pt reports he is getting fatigued with back pain on his walks and notes pain is just constant. Pt reports no recent falls. Notes picking up something that is heavy is becoming difficult and with bending over like working in the yard. Pt reports he felt like he really improved with activity tolerance for walking, balance and strength when doing PT but now its limited d/t back pain. He had a televisit w/ pain MD who sent him back to PT. Uses cane consistantly outside of the house. 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 Pt going to [facility] for neuro for his memory. Hx R ISMAEL. [place] would walk [place] to [address] then [place] (3/4 mile) but now they typically drive down and just walk the 3/[address] back. Prior Treatments and Tests PT and injections with good injections Treatment Goals Patient/Caregiver Goals be able to walk further without back fatigue, be able to walk down gravel hill to trail PT-OP-C Subjective Start: 09/04/20 12:57 Freq: Status: Active Protocol: Document 09/23/20 09:07 [facility] (Rec: 09/23/20 09:50 [facility] [id number]) OP-PT Subjective Patient Comments Patient Comments Pt reports back is doing better. 05/19 pain today PT-OP-D Balance Start: 09/04/20 12:57 Freq: Status: Active Protocol: Document 09/04/20 14:36 [facility] (Rec: 09/04/20 15:20 [facility] [id number]) Balance Tests Waggoner Balance Test Waggoner Balance Test Score 49 Single Limb Standing Single Limb- Right unable Single Limb- Left 2 sec w/UE movement PT-OP-E Functional Tests Start: 09/04/20 12:57 Freq: Status: Active Protocol: Document 09/04/20 14:36 [facility] (Rec: 09/04/20 15:20 [facility] [id number]) Functional Tests 30 Second Sit to Stand Test Score 7 Five Times Sit to Stand Test Score 22 sec PT-OP-F Manual Assessment Start: 09/04/20 12:57 Freq: Status: Active Protocol: Document 09/04/20 14:36 [facility] (Rec: 09/04/20 15:20 [facility] [id number]) Manual Assessments Soft Tissue Assessment Soft Tissue Mobility Assessment tightness in QL & R glute PT-OP-G Mobility & Gait Start: 09/04/20 12:57 Freq: Status: Active Protocol: Document 09/04/20 14:36 [facility] (Rec: 09/04/20 15:20 [facility] [id number]) OP Gait Assessment Comments Gait Comments Dec push off and very rigid upper body and trunk PT-OP-J Posture/Palpation/Skin Start: 09/04/20 12:57 Freq: Status: Active Protocol: Document 09/04/20 14:36 [facility] (Rec: 09/04/20 15:20 [facility] [id number]) Posture Evaluation Augusto Postural Classification System Vertebral Compression Test 2 Elbow Flexion Test 1 Lumbar Protective Mechanism Left AP 1 Lumbar Protective Mechanism Right AP 0 Lumbar Protective Mechanism Left PA 1 Lumbar Protective Mechanism Right PA 1 Comments Posture Comments R plevic shear, fwd flex at hips & inc kyphossis PT-OP-K Range of Motion Start: 09/04/20 12:57 Freq: Status: Active Protocol: Document 09/04/20 14:36 [facility] (Rec: 09/04/20 15:20 [facility] [id number]) Lumbar Spine Range of Motion Lumbar Spine Active Degrees Flexion 29 Extension 5 Rotation Left 40 Rotation Right 43 Lateral Flexion Left 10 Lateral Flexion Right 8 Comments pain w/R and SB R PT-OP-L Special Tests Start: 09/04/20 12:57 Freq: Status: Active Protocol: Document 09/04/20 14:36 [facility] (Rec: 09/04/20 15:20 [facility] [id number]) Special Tests Lumbar Spine Special Tests Juan Test Results tightness signficant B hip flexors Slump Test Results neg B Straight Leg Raise Test Results L 38, R 36 tightness in ACEVEDO PT-OP-M Strength Start: 09/04/20 12:57 Freq: Status: Active Protocol: Document 09/04/20 14:36 [facility] (Rec: 09/04/20 15:20 [facility] [id number]) Hip Strength Hip Manual Muscle Testing Left Flexion (L2) 4- Good- Extension (S1) 4- Good- Abduction 4- Good- External Rotation 4- Good- Internal Rotation 4- Good- Right Flexion (L2) 3 Fair Extension (S1) 3 Fair Abduction 3+ Fair+ External Rotation 3 Fair Internal Rotation 3+ Fair+ Comments pain IR Knee Strength Knee Manual Muscle Testing Right Flexion (S2) 5 Normal Extension (L3) 4+ Good+ Left Flexion (S2) 5 Normal Extension (L3) 4+ Good+ Ankle/Foot Strength Ankle and Foot Manual Muscle Testing Right Dorsiflexion (L4) 5 Normal Comments unable to do good heel rasies w/pushing Left Dorsiflexion (L4) 5 Normal Comments unable to heel raise PT-OP-Q Treatments Start: 09/04/20 12:57 Freq: Status: Active Protocol: Document 09/23/20 09:07 [facility] (Rec: 09/23/20 09:50 [facility] [id number]) Cardio Equipment Recumbent Bicycle Duration (Minutes) 5 Resistance 11 Seat Position 12 Gym Equipment Sport Cord step up Exercise Details 4 in step Cord/Resistance green Reps/Duration 10 B side step Cord/Resistance green Reps/Duration 10 B fwd Cord/Resistance green Reps/Duration 10 ea Comments 1.wt shifts in mirror b 2. wt shift with step B 3. fwd walk Therapeutic Exercises Standing Exercises 7 Standing Exercise Name march hold Side bilateral Reps/Minutes 20sec Comments w/rail focus on upright posture & glute 3 Standing Exercise Name step ups w/alt march Side bilateral Equipment Used 8 in step Reps/Minutes 10 Manual Therapy Treatment Soft Tissue Mobilization 4 Body Location R glute Mobilization Type Rolling,Sustained Pressure Intensity/Depth Moderate Body Position Prone Comments w/hip ER/IR Joint Mobilizations 3 Joint R hip Direction on axis ER FM 2 Joint sacrum Direction R UPA FM 1 Joint R innominate Direction R ER FM PT-OP-R Modalities Start: 09/04/20 12:57 Freq: Status: Active Protocol: Document 09/23/20 09:07 [facility] (Rec: 09/23/20 09:50 [facility] [id number]) Hot Pack/Cold Pack Treatment Cold Pack Location LS Patient Position Hooklying Treatment Duration (minutes) 10 PT-OP-T Assessment and Plan Start: 09/04/20 12:57 Freq: Status: Active Protocol: Document 09/23/20 09:07 [facility] (Rec: 09/23/20 09:50 [facility] [id number]) Physical Therapy Assessment Goals Four Impairment strength Short Term Goal (STG) Pt will be indep w/HEP STG Duration 10/04/20 Recruiting Operations Consultant Goal (LTG) Pt will score at least 3/5 on LPM and have at least 4/5 LE MMT for B hips to improve stability in order to allow him to do his typical activities without inc pain. LTG Duration 11/04/20 Three Impairment walking Short Term Goal (STG) Pt will be able to go for short walks w/o inc pain STG Duration 10/05/20 Recruiting Operations Consultant Goal (LTG) Pt will be able to do his typical walk down the hill to the trail and back home without inc pain more than 2 points. LTG Duration 11/04/20 Two Impairment pain Jail Goal (LTG) Pt will report no constant pain and only intermittent R hip and back pain that he is able to self manage. LTG Duration 11/04/20 One Impairment balance Recruiting Operations Consultant Goal (LTG) Pt will be able to score at least 25/30 on FGA to show dec risk for falls. LTG Duration 11/04/20 Assessment Summary Assessment Pt did well with wt shift when signficiantly cued. he is doing better with ext with step up. Improved ER overall during manual treatment Physical Therapy Plan Frequency and Duration Frequency of Treatment 2x/Week Duration of Treatment 2 months Plan of Care Start Date 09/04/20 Plan of Care End Date 11/04/20 Next Visit Focus/Plan Next Note Type Treatment Note Next Visit Plan cont to advance hip strength, manual for dec pain, PNF & core/hip stability
--- NOTE | 2020-10-15 08:17 | PT.OTN ---
Current Diagnoses Low back pain (10/15/20) Difficulty in walking, not elsewhere classified (10/15/20) Other abnormalities of gait and mobility (10/15/20) Abnormal posture (10/15/20) Weakness (10/15/20) Physical Therapy Treatment Note PT-OP-A Visit Information Start: 09/04/20 12:57 Freq: Status: Active Protocol: Document 10/15/20 07:39 [facility] (Rec: 10/15/20 08:16 [facility] [id number]) Out-Patient Physical Therapy Visit Information Visit Information Visit Type Progress Note Visit Note 05/19 Visit Start Time 07:32 Visit Stop Time 08:22 Total Visit Minutes 50 Visit Number 7 Number of MACHINE CONTAINER WASHER Visits 0 PT-OP-B Current Condition Start: 09/04/20 12:57 Freq: Status: Active Protocol: Document 09/04/20 14:36 [facility] (Rec: 09/04/20 15:20 [facility] [id number]) Current Condition History of Current Condition Onset Date chronic w/recent worsening Current Complaints R hip and LBP History of Current Condition Pt reports he is in pain all the time in R hip and R SI region into R LB. He is on ice 1-2x/day d/t pain. Pt has had injections and past PT which have been successful. He cont walking and exercises but once stopped PT, pain started to inc again. Pt reports he is getting fatigued with back pain on his walks and notes pain is just constant. Pt reports no recent falls. Notes picking up something that is heavy is becoming difficult and with bending over like working in the yard. Pt reports he felt like he really improved with activity tolerance for walking, balance and strength when doing PT but now its limited d/t back pain. He had a televisit w/ pain MD who sent him back to PT. Uses cane consistantly outside of the house. 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 Pt going to [facility] for neuro for his memory. Hx R ISMAEL. [place] would [place] to [address] then [place] to [place] (3/4 mile) but now they typically drive down and just walk the 3/[address] back. Prior Treatments and Tests PT and injections with good injections Treatment Goals Patient/Caregiver Goals be able to walk further without back fatigue, be able to walk down gravel hill to trail PT-OP-C Subjective Start: 09/04/20 12:57 Freq: Status: Active Protocol: Document 10/15/20 07:39 [facility] (Rec: 10/15/20 08:16 [facility] [id number]) OP-PT Subjective Patient Comments Patient Comments Pt reprots doing a lot of walking around d/t walking to restaurants when in [place] PT-OP-D Balance Start: 09/04/20 12:57 Freq: Status: Active Protocol: Document 09/04/20 14:36 [facility] (Rec: 09/04/20 15:20 [facility] [id number]) Balance Tests Waggoner Balance Test Waggoner Balance Test Score 49 Single Limb Standing Single Limb- Right unable Single Limb- Left 2 sec w/UE movement PT-OP-E Functional Tests Start: 09/04/20 12:57 Freq: Status: Active Protocol: Document 10/15/20 07:39 [facility] (Rec: 10/15/20 08:16 [facility] [id number]) Functional Tests 30 Second Sit to Stand Test Score 7 Five Times Sit to Stand Test Score 17 sec Functional Gait Assessment Score 18/30 PT-OP-F Manual Assessment Start: 09/04/20 12:57 Freq: Status: Active Protocol: Document 09/04/20 14:36 [facility] (Rec: 09/04/20 15:20 [facility] [id number]) Manual Assessments Soft Tissue Assessment Soft Tissue Mobility Assessment tightness in QL & R glute PT-OP-G Mobility & Gait Start: 09/04/20 12:57 Freq: Status: Active Protocol: Document 09/04/20 14:36 [facility] (Rec: 09/04/20 15:20 [facility] [id number]) OP Gait Assessment Comments Gait Comments Dec push off and very rigid upper body and trunk PT-OP-J Posture/Palpation/Skin Start: 09/04/20 12:57 Freq: Status: Active Protocol: Document 09/04/20 14:36 [facility] (Rec: 09/04/20 15:20 [facility] [id number]) Posture Evaluation Augusto Postural Classification System Vertebral Compression Test 2 Elbow Flexion Test 1 Lumbar Protective Mechanism Left AP 1 Lumbar Protective Mechanism Right AP 0 Lumbar Protective Mechanism Left PA 1 Lumbar Protective Mechanism Right PA 1 Comments Posture Comments R plevic shear, fwd flex at hips & inc kyphossis PT-OP-K Range of Motion Start: 09/04/20 12:57 Freq: Status: Active Protocol: Document 09/04/20 14:36 [facility] (Rec: 09/04/20 15:20 [facility] [id number]) Lumbar Spine Range of Motion Lumbar Spine Active Degrees Flexion 29 Extension 5 Rotation Left 40 Rotation Right 43 Lateral Flexion Left 10 Lateral Flexion Right 8 Comments pain w/R and SB R PT-OP-L Special Tests Start: 09/04/20 12:57 Freq: Status: Active Protocol: Document 09/04/20 14:36 [facility] (Rec: 09/04/20 15:20 [facility] [id number]) Special Tests Lumbar Spine Special Tests Juan Test Results tightness signficant B hip flexors Slump Test Results neg B Straight Leg Raise Test Results L 38, R 36 tightness in ACEVEDO PT-OP-M Strength Start: 09/04/20 12:57 Freq: Status: Active Protocol: Document 10/15/20 07:39 [facility] (Rec: 10/15/20 08:16 [facility] [id number]) Hip Strength Hip Manual Muscle Testing Left Flexion (L2) 4- Good- Extension (S1) 4- Good- Abduction 4- Good- External Rotation 4 Good Internal Rotation 5 Normal Comments pain in back w/L hip abd Right Flexion (L2) 3+ Fair+ Extension (S1) 3+ Fair+ Abduction 4- Good- External Rotation 3+ Fair+ Internal Rotation 4 Good Comments discomfort R hip Knee Strength Knee Manual Muscle Testing Right Flexion (S2) 5 Normal Extension (L3) 4 Good Left Flexion (S2) 5 Normal Extension (L3) 5 Normal Ankle/Foot Strength Ankle and Foot Manual Muscle Testing Right Dorsiflexion (L4) 5 Normal Plantarflexion (S1) 4- Good- Comments 10 heel raises Left Dorsiflexion (L4) 5 Normal Comments unable to heel raise PT-OP-Q Treatments Start: 09/04/20 12:57 Freq: Status: Active Protocol: Document 10/15/20 07:39 [facility] (Rec: 10/15/20 08:16 [facility] [id number]) Cardio Equipment Recumbent Bicycle Duration (Minutes) 5 Resistance 11 Seat Position 12 Therapeutic Exercises Standing Exercises 3 Standing Exercise Name step ups w/alt march Side bilateral Equipment Used 8 in step Reps/Minutes 10 Manual Therapy Treatment Soft Tissue Mobilization 4 Body Location R glute upper, QL Mobilization Type Rolling,Sustained Pressure Intensity/Depth Moderate Body Position Prone PT-OP-R Modalities Start: 09/04/20 12:57 Freq: Status: Active Protocol: Document 10/15/20 07:39 [facility] (Rec: 10/15/20 08:16 [facility] [id number]) Hot Pack/Cold Pack Treatment Cold Pack Location LS Patient Position Hooklying Treatment Duration (minutes) 10 PT-OP-T Assessment and Plan Start: 09/04/20 12:57 Freq: Status: Active Protocol: Document 10/15/20 07:39 [facility] (Rec: 10/15/20 08:16 [facility] [id number]) Physical Therapy Assessment Goals Four Impairment strength Short Term Goal (STG) Pt will be indep w/HEP STG Duration achieved Care Home Goal (LTG) Pt will score at least 3/5 on LPM and have at least 4/5 LE MMT for B hips to improve stability in order to allow him to do his typical activities without inc pain. 10/15-improving LTG Duration 12/15/20 Three Impairment walking Short Term Goal (STG) Pt will be able to go for short walks w/o inc pain STG Duration achieved Care Home Goal (LTG) Pt will be able to do his typical walk down the hill to the trail and back home without inc pain more than 2 points. 10/15-discomfort after current walks LTG Duration 12/15/20 Two Impairment pain Ear Mold Laboratory Technician Goal (LTG) Pt will report no constant pain and only intermittent R hip and back pain that he is able to self manage. 10/15-still 2-3/10 general discomfort LTG Duration 11/04/20 One Impairment balance Care Home Goal (LTG) Pt will be able to score at least 25/30 on FGA to show dec risk for falls. 10/15-17 LTG Duration 12/15 Assessment Summary Assessment Pt is making progress with PT and is reporting less pain and noting better responses to his walks now. He still does show dec balance and strength and would beneift from cont PT to work on these deficits. Physical Therapy Plan Frequency and Duration Frequency of Treatment 2x/Week Duration of Treatment 2 months Plan of Care Start Date 10/15/20 Plan of Care End Date 12/15/20 Therapeutic Interventions Therapeutic Interventions Aquatic Therapy,Balance Training,Gait Training,Home Exercise Program,Joint Mobilizations,Manual Therapy, Neuromuscular Re-education, Patient/Caregiver Education, Self-Care/Home Management,Soft Tissue Mobilization,Taping, Therapeutic Activities, Therapeutic Exercises Modalities Cold Pack/Ice Massage,Electric Stimulation,Hot Packs, Ultrasound Next Visit Focus/Plan Next Note Type Treatment Note Next Visit Plan cont to advance hip strength, manual for dec pain, PNF & core/hip stability
--- NOTE | 2020-10-15 08:18 | PT.OPPOC ---
Physical, Occupational & Speech Therapy At Located Within [facility] Current Diagnoses Low back pain (10/15/20) Difficulty in walking, not elsewhere classified (10/15/20) Other abnormalities of gait and mobility (10/15/20) Abnormal posture (10/15/20) Weakness (10/15/20) Visit Care Team Role Provider Type To Vallejo MD Family Provider Physician Primary Care Provider Specialty: Internal Medicine Address: [address] [place] [address], [id number] Email: [email or web address] Dawna Kolb MD Attending Provider Non-Staff Referring Provider Specialty: Physical Medicine and Rehab Address: [address] [place] [address], [phone] Email: Plan Of Care PT-OP-T Assessment and Plan Start: 09/04/20 12:57 Freq: Status: Active Protocol: Document 10/15/20 07:39 [facility] (Rec: 10/15/20 08:16 [facility] [id number]) Physical Therapy Assessment Goals Four Impairment strength Short Term Goal (STG) Pt will be indep w/HEP STG Duration achieved Jail Goal (LTG) Pt will score at least 3/5 on LPM and have at least 4/5 LE MMT for B hips to improve stability in order to allow him to do his typical activities without inc pain. 10/15-improving LTG Duration 12/15/20 Three Impairment walking Short Term Goal (STG) Pt will be able to go for short walks w/o inc pain STG Duration achieved Power System Dispatcher Goal (LTG) Pt will be able to do his typical walk down the hill to the trail and back home without inc pain more than 2 points. 10/15-discomfort after current walks LTG Duration 12/15/20 Two Impairment pain Jail Goal (LTG) Pt will report no constant pain and only intermittent R hip and back pain that he is able to self manage. 10/15-still 2-3/10 general discomfort LTG Duration 11/04/20 One Impairment balance Power System Dispatcher Goal (LTG) Pt will be able to score at least 25/30 on FGA to show dec risk for falls. 10/15- LTG Duration 12/15 Assessment Summary Assessment Pt is making progress with PT and is reporting less pain and noting better responses to his walks now. He still does show dec balance and strength and would beneift from cont PT to work on these deficits. Physical Therapy Plan Frequency and Duration Frequency of Treatment 2x/Week Duration of Treatment 2 months Plan of Care Start Date 10/15/20 Plan of Care End Date 12/15/20 Therapeutic Interventions Therapeutic Interventions Aquatic Therapy,Balance Training,Gait Training,Home Exercise Program,Joint Mobilizations,Manual Therapy, Neuromuscular Re-education, Patient/Caregiver Education, Self-Care/Home Management,Soft Tissue Mobilization,Taping, Therapeutic Activities, Therapeutic Exercises Modalities Cold Pack/Ice Massage,Electric Stimulation,Hot Packs, Ultrasound Next Visit Focus/Plan Next Note Type Treatment Note Next Visit Plan cont to advance hip strength, manual for dec pain, PNF & core/hip stability Plan of Care Dates Plan of Care Start Date 10/15/20 Plan of Care End Date 12/15/20 Electronically Signed by: Reina Rider, PT 10/15/20 0818 Please Sign and Return: I have reviewed this Plan of Care and certify that the skilled therapy services above are required to meet the patient?s needs. Physician Signature Date Printed Name and Credentials Clinical Instructor Signature Printed Name and Credentials
--- NOTE | 2020-10-17 10:33 | PT.OTN ---
Current Diagnoses Low back pain (10/17/20) Difficulty in walking, not elsewhere classified (10/17/20) Other abnormalities of gait and mobility (10/17/20) Abnormal posture (10/17/20) Weakness (10/17/20) Physical Therapy Treatment Note PT-OP-A Visit Information Start: 09/04/20 12:57 Freq: Status: Active Protocol: Document 10/17/20 09:50 [facility] (Rec: 10/17/20 10:32 [facility] [id number]) Out-Patient Physical Therapy Visit Information Visit Information Visit Type Treatment Note Visit Note 06/19 Visit Start Time 09:47 Visit Stop Time 10:28 Total Visit Minutes 51 Visit Number 8 Number of SPANISH LECTURER Visits 0 PT-OP-B Current Condition Start: 09/04/20 12:57 Freq: Status: Active Protocol: Document 09/04/20 14:36 [facility] (Rec: 09/04/20 15:20 [facility] [id number]) Current Condition History of Current Condition Onset Date chronic w/recent worsening Current Complaints R hip and LBP History of Current Condition Pt reports he is in pain all the time in R hip and R SI region into R LB. He is on ice 1-2x/day d/t pain. Pt has had injections and past PT which have been successful. He cont walking and exercises but once stopped PT, pain started to inc again. Pt reports he is getting fatigued with back pain on his walks and notes pain is just constant. Pt reports no recent falls. Notes picking up something that is heavy is becoming difficult and with bending over like working in the yard. Pt reports he felt like he really improved with activity tolerance for walking, balance and strength when doing PT but now its limited d/t back pain. He had a televisit w/ pain MD who sent him back to PT. Uses cane consistantly outside of the house. 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 Pt going to [facility] for neuro for his memory. Hx R ISMAEL. [place] to [address] then [place] (3/4 mile) but now they typically drive down and just walk the 3/[address] back. Prior Treatments and Tests PT and injections with good injections Treatment Goals Patient/Caregiver Goals be able to walk further without back fatigue, be able to walk down gravel hill to trail PT-OP-C Subjective Start: 09/04/20 12:57 Freq: Status: Active Protocol: Document 10/17/20 09:50 [facility] (Rec: 10/17/20 10:32 [facility] [id number]) OP-PT Subjective Patient Comments Patient Comments Pt reports he knows his wants to talk to PT about his back PT-OP-D Balance Start: 09/04/20 12:57 Freq: Status: Active Protocol: Document 09/04/20 14:36 [facility] (Rec: 09/04/20 15:20 [facility] [id number]) Balance Tests Waggoner Balance Test Waggoner Balance Test Score 49 Single Limb Standing Single Limb- Right unable Single Limb- Left 2 sec w/UE movement PT-OP-E Functional Tests Start: 09/04/20 12:57 Freq: Status: Active Protocol: Document 10/15/20 07:39 [facility] (Rec: 10/15/20 08:16 [facility] [id number]) Functional Tests 30 Second Sit to Stand Test Score 7 Five Times Sit to Stand Test Score 17 sec Functional Gait Assessment Score 18/30 PT-OP-F Manual Assessment Start: 09/04/20 12:57 Freq: Status: Active Protocol: Document 09/04/20 14:36 [facility] (Rec: 09/04/20 15:20 [facility] [id number]) Manual Assessments Soft Tissue Assessment Soft Tissue Mobility Assessment tightness in QL & R glute PT-OP-G Mobility & Gait Start: 09/04/20 12:57 Freq: Status: Active Protocol: Document 09/04/20 14:36 [facility] (Rec: 09/04/20 15:20 [facility] [id number]) OP Gait Assessment Comments Gait Comments Dec push off and very rigid upper body and trunk PT-OP-J Posture/Palpation/Skin Start: 09/04/20 12:57 Freq: Status: Active Protocol: Document 09/04/20 14:36 [facility] (Rec: 09/04/20 15:20 [facility] [id number]) Posture Evaluation Augusto Postural Classification System Vertebral Compression Test 2 Elbow Flexion Test 1 Lumbar Protective Mechanism Left AP 1 Lumbar Protective Mechanism Right AP 0 Lumbar Protective Mechanism Left PA 1 Lumbar Protective Mechanism Right PA 1 Comments Posture Comments R plevic shear, fwd flex at hips & inc kyphossis PT-OP-K Range of Motion Start: 09/04/20 12:57 Freq: Status: Active Protocol: Document 09/04/20 14:36 [facility] (Rec: 09/04/20 15:20 [facility] [id number]) Lumbar Spine Range of Motion Lumbar Spine Active Degrees Flexion 29 Extension 5 Rotation Left 40 Rotation Right 43 Lateral Flexion Left 10 Lateral Flexion Right 8 Comments pain w/R and SB R PT-OP-L Special Tests Start: 09/04/20 12:57 Freq: Status: Active Protocol: Document 09/04/20 14:36 [facility] (Rec: 09/04/20 15:20 [facility] [id number]) Special Tests Lumbar Spine Special Tests Juan Test Results tightness signficant B hip flexors Slump Test Results neg B Straight Leg Raise Test Results L 38, R 36 tightness in ACEVEDO PT-OP-M Strength Start: 09/04/20 12:57 Freq: Status: Active Protocol: Document 10/15/20 07:39 [facility] (Rec: 10/15/20 08:16 [facility] [id number]) Hip Strength Hip Manual Muscle Testing Left Flexion (L2) 4- Good- Extension (S1) 4- Good- Abduction 4- Good- External Rotation 4 Good Internal Rotation 5 Normal Comments pain in back w/L hip abd Right Flexion (L2) 3+ Fair+ Extension (S1) 3+ Fair+ Abduction 4- Good- External Rotation 3+ Fair+ Internal Rotation 4 Good Comments discomfort R hip Knee Strength Knee Manual Muscle Testing Right Flexion (S2) 5 Normal Extension (L3) 4 Good Left Flexion (S2) 5 Normal Extension (L3) 5 Normal Ankle/Foot Strength Ankle and Foot Manual Muscle Testing Right Dorsiflexion (L4) 5 Normal Plantarflexion (S1) 4- Good- Comments 10 heel raises Left Dorsiflexion (L4) 5 Normal Comments unable to heel raise PT-OP-Q Treatments Start: 09/04/20 12:57 Freq: Status: Active Protocol: Document 10/17/20 09:50 [facility] (Rec: 10/17/20 10:32 [facility] [id number]) Cardio Equipment Recumbent Bicycle Duration (Minutes) 5 Resistance 12 Seat Position 12 Gym Equipment Shuttle Balance 1 Details red clips Comments fwd & side : WBOS & NBOS fwd : staggered stance Sport Cord step up Exercise Details 5 in step Cord/Resistance green Reps/Duration 10 B fwd Cord/Resistance green Reps/Duration 10 ea Comments 1.wt shifts in mirror b 2. wt shift with step B 3. fwd walk Manual Therapy Treatment Soft Tissue Mobilization 4 Body Location along iliac crest R Mobilization Type Rolling,Sustained Pressure Intensity/Depth Moderate Body Position Prone Joint Mobilizations 3 Joint R hip Direction on axis ER FM 2 Joint sacrum Direction caudal FM 1 Joint R innominate Direction caudal FM PT-OP-R Modalities Start: 09/04/20 12:57 Freq: Status: Active Protocol: Document 10/17/20 09:50 [facility] (Rec: 10/17/20 10:32 [facility] [id number]) Hot Pack/Cold Pack Treatment Cold Pack Location LS Patient Position Hooklying Treatment Duration (minutes) 10 PT-OP-T Assessment and Plan Start: 09/04/20 12:57 Freq: Status: Active Protocol: Document 10/17/20 09:50 [facility] (Rec: 10/17/20 10:32 [facility] [id number]) Physical Therapy Assessment Goals Four Impairment strength Short Term Goal (STG) Pt will be indep w/HEP STG Duration achieved Nursing Home Goal (LTG) Pt will score at least 3/5 on LPM and have at least 4/5 LE MMT for B hips to improve stability in order to allow him to do his typical activities without inc pain. 10/15-improving LTG Duration 12/15/20 Three Impairment walking Short Term Goal (STG) Pt will be able to go for short walks w/o inc pain STG Duration achieved Nursing Home Goal (LTG) Pt will be able to do his typical walk down the hill to the trail and back home without inc pain more than 2 points. 10/15-discomfort after current walks LTG Duration 12/15/20 Two Impairment pain Conveyor Monitor Goal (LTG) Pt will report no constant pain and only intermittent R hip and back pain that he is able to self manage. 10/15-still 2-3/10 general discomfort LTG Duration 11/04/20 One Impairment balance Nursing Home Goal (LTG) Pt will be able to score at least 25/30 on FGA to show dec risk for falls. 10/15-17 LTG Duration 12/15 Assessment Summary Assessment Pt encouraged to have come to a session to see what is being worked on. During standing exercises w/sprot cord, pt required signfiicant cues for posture d/t lat lean R and fwd flex. He improved step up form with better full knee and hip ext after cuing. Physical Therapy Plan Frequency and Duration Frequency of Treatment 2x/Week Duration of Treatment 2 months Plan of Care Start Date 10/15/20 Plan of Care End Date 12/15/20 Next Visit Focus/Plan Next Note Type Treatment Note Next Visit Plan cont to advance hip strength, manual for dec pain, PNF & core/hip stability
--- NOTE | 2020-10-21 16:25 | PT.OTN ---
Current Diagnoses Low back pain (10/21/20) Difficulty in walking, not elsewhere classified (10/21/20) Other abnormalities of gait and mobility (10/21/20) Abnormal posture (10/21/20) Weakness (10/21/20) Physical Therapy Treatment Note PT-OP-A Visit Information Start: 09/04/20 12:57 Freq: Status: Active Protocol: Document 10/21/20 16:14 [facility] (Rec: 10/21/20 16:25 [facility] [id number]) Out-Patient Physical Therapy Visit Information Visit Information Visit Type Treatment Note Visit Note 07/17 Visit Start Time 08:17 Visit Stop Time 09:10 Total Visit Minutes 53 Visit Number 9 Number of CULTURAL CENTRE MANAGER Visits 0 PT-OP-B Current Condition Start: 09/04/20 12:57 Freq: Status: Active Protocol: Document 09/04/20 14:36 [facility] (Rec: 09/04/20 15:20 [facility] [id number]) Current Condition History of Current Condition Onset Date chronic w/recent worsening Current Complaints R hip and LBP History of Current Condition Pt reports he is in pain all the time in R hip and R SI region into R LB. He is on ice 1-2x/day d/t pain. Pt has had injections and past PT which have been successful. He cont walking and exercises but once stopped PT, pain started to inc again. Pt reports he is getting fatigued with back pain on his walks and notes pain is just constant. Pt reports no recent falls. Notes picking up something that is heavy is becoming difficult and with bending over like working in the yard. Pt reports he felt like he really improved with activity tolerance for walking, balance and strength when doing PT but now its limited d/t back pain. He had a televisit w/ pain MD who sent him back to PT. Uses cane consistantly outside of the house. 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 Pt going to [facility] for neuro for his memory. Hx R ISMAEL. [place] would [place] to [address] then [place] (3/4 mile) but now they typically drive down and just walk the 3/[address] back. Prior Treatments and Tests PT and injections with good injections Treatment Goals Patient/Caregiver Goals be able to walk further without back fatigue, be able to walk down gravel hill to trail PT-OP-C Subjective Start: 09/04/20 12:57 Freq: Status: Active Protocol: Document 10/21/20 16:14 [facility] (Rec: 10/21/20 16:25 [facility] [id number]) OP-PT Subjective Patient Comments Patient Comments is attending session w/pt and has questions and concerns. NOtes she thinks pt doesn't fully voice pain but she notices especially since returning from [facility] that he has been slouchign more esepcailly in the eveninga nd looks like he is in more pain and fatigues a lot by end of night. PT-OP-D Balance Start: 09/04/20 12:57 Freq: Status: Active Protocol: Document 09/04/20 14:36 [facility] (Rec: 09/04/20 15:20 [facility] [id number]) Balance Tests Waggoner Balance Test Waggoner Balance Test Score 49 Single Limb Standing Single Limb- Right unable Single Limb- Left 2 sec w/UE movement PT-OP-E Functional Tests Start: 09/04/20 12:57 Freq: Status: Active Protocol: Document 10/15/20 07:39 [facility] (Rec: 10/15/20 08:16 [facility] [id number]) Functional Tests 30 Second Sit to Stand Test Score 7 Five Times Sit to Stand Test Score 17 sec Functional Gait Assessment Score 18/30 PT-OP-F Manual Assessment Start: 09/04/20 12:57 Freq: Status: Active Protocol: Document 09/04/20 14:36 [facility] (Rec: 09/04/20 15:20 [facility] [id number]) Manual Assessments Soft Tissue Assessment Soft Tissue Mobility Assessment tightness in QL & R glute PT-OP-G Mobility & Gait Start: 09/04/20 12:57 Freq: Status: Active Protocol: Document 09/04/20 14:36 [facility] (Rec: 09/04/20 15:20 [facility] [id number]) OP Gait Assessment Comments Gait Comments Dec push off and very rigid upper body and trunk PT-OP-J Posture/Palpation/Skin Start: 09/04/20 12:57 Freq: Status: Active Protocol: Document 09/04/20 14:36 [facility] (Rec: 09/04/20 15:20 [facility] [id number]) Posture Evaluation Augusto Postural Classification System Vertebral Compression Test 2 Elbow Flexion Test 1 Lumbar Protective Mechanism Left AP 1 Lumbar Protective Mechanism Right AP 0 Lumbar Protective Mechanism Left PA 1 Lumbar Protective Mechanism Right PA 1 Comments Posture Comments R plevic shear, fwd flex at hips & inc kyphossis PT-OP-K Range of Motion Start: 09/04/20 12:57 Freq: Status: Active Protocol: Document 09/04/20 14:36 [facility] (Rec: 09/04/20 15:20 [facility] [id number]) Lumbar Spine Range of Motion Lumbar Spine Active Degrees Flexion 29 Extension 5 Rotation Left 40 Rotation Right 43 Lateral Flexion Left 10 Lateral Flexion Right 8 Comments pain w/R and SB R PT-OP-L Special Tests Start: 09/04/20 12:57 Freq: Status: Active Protocol: Document 09/04/20 14:36 [facility] (Rec: 09/04/20 15:20 [facility] [id number]) Special Tests Lumbar Spine Special Tests Juan Test Results tightness signficant B hip flexors Slump Test Results neg B Straight Leg Raise Test Results L 38, R 36 tightness in ACEVEDO PT-OP-M Strength Start: 09/04/20 12:57 Freq: Status: Active Protocol: Document 10/15/20 07:39 [facility] (Rec: 10/15/20 08:16 [facility] [id number]) Hip Strength Hip Manual Muscle Testing Left Flexion (L2) 4- Good- Extension (S1) 4- Good- Abduction 4- Good- External Rotation 4 Good Internal Rotation 5 Normal Comments pain in back w/L hip abd Right Flexion (L2) 3+ Fair+ Extension (S1) 3+ Fair+ Abduction 4- Good- External Rotation 3+ Fair+ Internal Rotation 4 Good Comments discomfort R hip Knee Strength Knee Manual Muscle Testing Right Flexion (S2) 5 Normal Extension (L3) 4 Good Left Flexion (S2) 5 Normal Extension (L3) 5 Normal Ankle/Foot Strength Ankle and Foot Manual Muscle Testing Right Dorsiflexion (L4) 5 Normal Plantarflexion (S1) 4- Good- Comments 10 heel raises Left Dorsiflexion (L4) 5 Normal Comments unable to heel raise PT-OP-Q Treatments Start: 09/04/20 12:57 Freq: Status: Active Protocol: Document 10/21/20 16:14 [facility] (Rec: 10/21/20 16:25 [facility] [id number]) Gym Equipment Sport Cord fwd Cord/Resistance green Reps/Duration 10 Comments fwd walk for push off focus Therapeutic Exercises Supine Exercises 2 Supine Exercise Name juan test stretch Side bilateral Reps/Minutes 30 sec 1 Supine Exercise Name SKTC w/opp quad set Side bilateral Reps/Minutes 15 sec x3 Standing Exercises 7 Standing Exercise Name wall posture w/B shoulder ext Side bilateral Reps/Minutes 1 min x2 Comments focus on lumbar spine on wall & core activiation 6 Standing Exercise Name rows focusing on posture Side bilateral Equipment Used L2 Reps/Minutes 2x10 5 Standing Exercise Name hip flexor stretch Side bilateral Reps/Minutes 45 sec ea Manual Therapy Treatment Soft Tissue Mobilization 4 Body Location along iliac crest R Mobilization Type Rolling,Sustained Pressure Intensity/Depth Moderate Body Position Prone 3 Body Location iliacus R Mobilization Type Sustained Pressure Intensity/Depth Moderate Self-Care/Home Management Treatment Education Caregiver Education edu re: using self massage tool at home as needed, discussed d/t pt's chronic pain, he is likely to not be painfree but gaol is to manage pain as best as possible. Edu to work posture at home trying a rubber band at wrist for a self cue. Discussed SI joint being big causation for paina s he has a lot of tenderness in that region. Discussed importance of loosening up hip flexors to improve posture. PT-OP-R Modalities Start: 09/04/20 12:57 Freq: Status: Active Protocol: Document 10/21/20 16:14 [facility] (Rec: 10/21/20 16:25 [facility] [id number]) Hot Pack/Cold Pack Treatment Cold Pack Location LS Patient Position Hooklying Treatment Duration (minutes) 10 PT-OP-T Assessment and Plan Start: 09/04/20 12:57 Freq: Status: Active Protocol: Document 10/21/20 16:14 [facility] (Rec: 10/21/20 16:25 [facility] [id number]) Physical Therapy Assessment Goals Four Impairment strength Short Term Goal (STG) Pt will be indep w/HEP STG Duration achieved Assortment Planner Goal (LTG) Pt will score at least 3/5 on LPM and have at least 4/5 LE MMT for B hips to improve stability in order to allow him to do his typical activities without inc pain. 10/15-improving LTG Duration 12/15/20 Three Impairment walking Short Term Goal (STG) Pt will be able to go for short walks w/o inc pain STG Duration achieved Assortment Planner Goal (LTG) Pt will be able to do his typical walk down the hill to the trail and back home without inc pain more than 2 points. 10/15-discomfort after current walks LTG Duration 12/15/20 Two Impairment pain Assortment Planner Goal (LTG) Pt will report no constant pain and only intermittent R hip and back pain that he is able to self manage. 10/15-still 2-3/10 general discomfort LTG Duration 11/04/20 One Impairment balance Residential Goal (LTG) Pt will be able to score at least 25/30 on FGA to show dec risk for falls. 10/15-17 LTG Duration 12/15 Assessment Summary Assessment Pt did well with exercises but did require a lot of cues for posture today as he flexed fwd a lot during the session today. he tolerated all new exercises well without inc pian. Physical Therapy Plan Frequency and Duration Frequency of Treatment 2x/Week Duration of Treatment 2 months Plan of Care Start Date 10/15/20 Plan of Care End Date 12/15/20 Next Visit Focus/Plan Next Note Type Treatment Note Next Visit Plan cont to advance hip strength, manual for dec pain, PNF & core/hip stability
--- NOTE | 2020-10-28 09:00 | PT.OTN ---
Current Diagnoses Low back pain (10/28/20) Difficulty in walking, not elsewhere classified (10/28/20) Other abnormalities of gait and mobility (10/28/20) Abnormal posture (10/28/20) Weakness (10/28/20) Physical Therapy Treatment Note PT-OP-A Visit Information Start: 09/04/20 12:57 Freq: Status: Active Protocol: Document 10/28/20 08:19 [facility] (Rec: 10/28/20 09:00 [facility] [id number]) Out-Patient Physical Therapy Visit Information Visit Information Visit Type Treatment Note Visit Note 08/17 Visit Start Time 08:17 Visit Stop Time 09:07 Total Visit Minutes 50 Visit Number 10 Number of SCREEN PRINTER Visits 0 PT-OP-B Current Condition Start: 09/04/20 12:57 Freq: Status: Active Protocol: Document 09/04/20 14:36 [facility] (Rec: 09/04/20 15:20 [facility] [id number]) Current Condition History of Current Condition Onset Date chronic w/recent worsening Current Complaints R hip and LBP History of Current Condition Pt reports he is in pain all the time in R hip and R SI region into R LB. He is on ice 1-2x/day d/t pain. Pt has had injections and past PT which have been successful. He cont walking and exercises but once stopped PT, pain started to inc again. Pt reports he is getting fatigued with back pain on his walks and notes pain is just constant. Pt reports no recent falls. Notes picking up something that is heavy is becoming difficult and with bending over like working in the yard. Pt reports he felt like he really improved with activity tolerance for walking, balance and strength when doing PT but now its limited d/t back pain. He had a televisit w/ pain MD who sent him back to PT. Uses cane consistantly outside of the house. 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 Pt going to [facility] for neuro for his memory. Hx R ISMAEL. [place] would walk [place] to [address] then [place] (3/4 mile) but now they typically drive down and just walk the 3/[address] back. Prior Treatments and Tests PT and injections with good injections Treatment Goals Patient/Caregiver Goals be able to walk further without back fatigue, be able to walk down gravel hill to trail PT-OP-C Subjective Start: 09/04/20 12:57 Freq: Status: Active Protocol: Document 10/28/20 08:19 [facility] (Rec: 10/28/20 09:00 [facility] [id number]) OP-PT Subjective Patient Comments Patient Comments Pt reports pain still there especially when he gets tired Patient Reported Progress Improving PT-OP-D Balance Start: 09/04/20 12:57 Freq: Status: Active Protocol: Document 09/04/20 14:36 [facility] (Rec: 09/04/20 15:20 [facility] [id number]) Balance Tests Waggoner Balance Test Waggoner Balance Test Score 49 Single Limb Standing Single Limb- Right unable Single Limb- Left 2 sec w/UE movement PT-OP-E Functional Tests Start: 09/04/20 12:57 Freq: Status: Active Protocol: Document 10/15/20 07:39 [facility] (Rec: 10/15/20 08:16 [facility] [id number]) Functional Tests 30 Second Sit to Stand Test Score 7 Five Times Sit to Stand Test Score 17 sec Functional Gait Assessment Score 18/30 PT-OP-F Manual Assessment Start: 09/04/20 12:57 Freq: Status: Active Protocol: Document 09/04/20 14:36 [facility] (Rec: 09/04/20 15:20 [facility] [id number]) Manual Assessments Soft Tissue Assessment Soft Tissue Mobility Assessment tightness in QL & R glute PT-OP-G Mobility & Gait Start: 09/04/20 12:57 Freq: Status: Active Protocol: Document 09/04/20 14:36 [facility] (Rec: 09/04/20 15:20 [facility] [id number]) OP Gait Assessment Comments Gait Comments Dec push off and very rigid upper body and trunk PT-OP-J Posture/Palpation/Skin Start: 09/04/20 12:57 Freq: Status: Active Protocol: Document 09/04/20 14:36 [facility] (Rec: 09/04/20 15:20 [facility] [id number]) Posture Evaluation Augusto Postural Classification System Vertebral Compression Test 2 Elbow Flexion Test 1 Lumbar Protective Mechanism Left AP 1 Lumbar Protective Mechanism Right AP 0 Lumbar Protective Mechanism Left PA 1 Lumbar Protective Mechanism Right PA 1 Comments Posture Comments R plevic shear, fwd flex at hips & inc kyphossis PT-OP-K Range of Motion Start: 09/04/20 12:57 Freq: Status: Active Protocol: Document 09/04/20 14:36 [facility] (Rec: 09/04/20 15:20 [facility] [id number]) Lumbar Spine Range of Motion Lumbar Spine Active Degrees Flexion 29 Extension 5 Rotation Left 40 Rotation Right 43 Lateral Flexion Left 10 Lateral Flexion Right 8 Comments pain w/R and SB R PT-OP-L Special Tests Start: 09/04/20 12:57 Freq: Status: Active Protocol: Document 09/04/20 14:36 [facility] (Rec: 09/04/20 15:20 [facility] [id number]) Special Tests Lumbar Spine Special Tests Juan Test Results tightness signficant B hip flexors Slump Test Results neg B Straight Leg Raise Test Results L 38, R 36 tightness in ACEVEDO PT-OP-M Strength Start: 09/04/20 12:57 Freq: Status: Active Protocol: Document 10/15/20 07:39 [facility] (Rec: 10/15/20 08:16 [facility] [id number]) Hip Strength Hip Manual Muscle Testing Left Flexion (L2) 4- Good- Extension (S1) 4- Good- Abduction 4- Good- External Rotation 4 Good Internal Rotation 5 Normal Comments pain in back w/L hip abd Right Flexion (L2) 3+ Fair+ Extension (S1) 3+ Fair+ Abduction 4- Good- External Rotation 3+ Fair+ Internal Rotation 4 Good Comments discomfort R hip Knee Strength Knee Manual Muscle Testing Right Flexion (S2) 5 Normal Extension (L3) 4 Good Left Flexion (S2) 5 Normal Extension (L3) 5 Normal Ankle/Foot Strength Ankle and Foot Manual Muscle Testing Right Dorsiflexion (L4) 5 Normal Plantarflexion (S1) 4- Good- Comments 10 heel raises Left Dorsiflexion (L4) 5 Normal Comments unable to heel raise PT-OP-Q Treatments Start: 09/04/20 12:57 Freq: Status: Active Protocol: Document 10/28/20 08:19 [facility] (Rec: 10/28/20 09:00 [facility] [id number]) Cardio Equipment Recumbent Bicycle Duration (Minutes) 5 Resistance 12 Seat Position 13 Gym Equipment Sport Cord step up Exercise Details 8 in step Cord/Resistance green Reps/Duration 10 B fwd Exercise Details in mirror Cord/Resistance green Reps/Duration 10 Comments fwd walk for push off focus Therapeutic Exercises Supine Exercises 2 Supine Exercise Name juan test stretch Side bilateral Reps/Minutes 1 min 1 Supine Exercise Name SKTC w/opp quad set Side bilateral Reps/Minutes 15 sec x2 Standing Exercises 7 Standing Exercise Name wall posture w/B shoulder ext Side bilateral Reps/Minutes 1 min Comments focus on lumbar spine on wall & core activiation 6 Standing Exercise Name rows focusing on posture Side bilateral Equipment Used L2 Reps/Minutes 2x10 5 Standing Exercise Name hip flexor stretch Side bilateral Reps/Minutes 45 sec ea Manual Therapy Treatment Soft Tissue Mobilization 4 Body Location along iliac crest R & lat glutes Mobilization Type Rolling,Sustained Pressure Intensity/Depth Moderate Body Position Prone 3 Body Location iliacus R Mobilization Type Sustained Pressure Intensity/Depth Moderate PT-OP-R Modalities Start: 09/04/20 12:57 Freq: Status: Active Protocol: Document 10/28/20 08:19 [facility] (Rec: 10/28/20 09:00 [facility] [id number]) Hot Pack/Cold Pack Treatment Cold Pack Location LS Patient Position Hooklying Treatment Duration (minutes) 10 PT-OP-T Assessment and Plan Start: 09/04/20 12:57 Freq: Status: Active Protocol: Document 10/28/20 08:19 [facility] (Rec: 10/28/20 09:00 [facility] [id number]) Physical Therapy Assessment Goals Four Impairment strength Short Term Goal (STG) Pt will be indep w/HEP STG Duration achieved Halfway Goal (LTG) Pt will score at least 3/5 on LPM and have at least 4/5 LE MMT for B hips to improve stability in order to allow him to do his typical activities without inc pain. 10/15-improving LTG Duration 12/15/20 Three Impairment walking Short Term Goal (STG) Pt will be able to go for short walks w/o inc pain STG Duration achieved Halfway Goal (LTG) Pt will be able to do his typical walk down the hill to the trail and back home without inc pain more than 2 points. 10/15-discomfort after current walks LTG Duration 12/15/20 Two Impairment pain Halfway Goal (LTG) Pt will report no constant pain and only intermittent R hip and back pain that he is able to self manage. 10/15-still 2-3/10 general discomfort LTG Duration 11/04/20 One Impairment balance Acid Cutter Goal (LTG) Pt will be able to score at least 25/30 on FGA to show dec risk for falls. 10/15- LTG Duration 12/15 Assessment Summary Assessment Pt requried cueing for posture and looking up when stepping up to get better full knee ext and hip ext w/step up. He did wellw ith all HEP exercises w /min cueing except w/rows. Physical Therapy Plan Frequency and Duration Frequency of Treatment 2x/Week Duration of Treatment 2 months Plan of Care Start Date 10/15/20 Plan of Care End Date 12/15/20 Next Visit Focus/Plan Next Note Type Treatment Note Next Visit Plan cont to advance hip strength, manual for dec pain, PNF & core/hip stability
--- NOTE | 2020-11-07 09:02 | PT.OTN ---
Current Diagnoses Low back pain (11/07/20) Difficulty in walking, not elsewhere classified (11/07/20) Other abnormalities of gait and mobility (11/07/20) Abnormal posture (11/07/20) Weakness (11/07/20) Physical Therapy Treatment Note PT-OP-A Visit Information Start: 09/04/20 12:57 Freq: Status: Active Protocol: Document 11/07/20 08:22 [facility] (Rec: 11/07/20 09:02 [facility] [id number]) Out-Patient Physical Therapy Visit Information Visit Information Visit Type Treatment Note Visit Note 09/16 Visit Start Time 08:19 Visit Stop Time 09:08 Total Visit Minutes 49 Visit Number 11 Number of CREDIT REPORTER Visits 0 PT-OP-B Current Condition Start: 09/04/20 12:57 Freq: Status: Active Protocol: Document 09/04/20 14:36 [facility] (Rec: 09/04/20 15:20 [facility] [id number]) Current Condition History of Current Condition Onset Date chronic w/recent worsening Current Complaints R hip and LBP History of Current Condition Pt reports he is in pain all the time in R hip and R SI region into R LB. He is on ice 1-2x/day d/t pain. Pt has had injections and past PT which have been successful. He cont walking and exercises but once stopped PT, pain started to inc again. Pt reports he is getting fatigued with back pain on his walks and notes pain is just constant. Pt reports no recent falls. Notes picking up something that is heavy is becoming difficult and with bending over like working in the yard. Pt reports he felt like he really improved with activity tolerance for walking, balance and strength when doing PT but now its limited d/t back pain. He had a televisit w/ pain MD who sent him back to PT. Uses cane consistantly outside of the house. 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 Pt going to [facility] for neuro for his memory. Hx R ISMAEL. Usually would [place] to [address] then going [place] (3/4 mile) but now they typically drive down and just walk the 3/[address] back. Prior Treatments and Tests PT and injections with good injections Treatment Goals Patient/Caregiver Goals be able to walk further without back fatigue, be able to walk down gravel hill to trail PT-OP-C Subjective Start: 09/04/20 12:57 Freq: Status: Active Protocol: Document 11/07/20 08:22 [facility] (Rec: 11/07/20 09:02 [facility] [id number]) OP-PT Subjective Patient Comments Patient Comments Pt reports pain is up and down . Pain is a 1/10 now but after a lot of walking around its a 7/10 and he has trouble standing up straight. Can get relief by laying down w/ice PT-OP-D Balance Start: 09/04/20 12:57 Freq: Status: Active Protocol: Document 09/04/20 14:36 [facility] (Rec: 09/04/20 15:20 [facility] [id number]) Balance Tests Waggoner Balance Test Waggoner Balance Test Score 49 Single Limb Standing Single Limb- Right unable Single Limb- Left 2 sec w/UE movement PT-OP-E Functional Tests Start: 09/04/20 12:57 Freq: Status: Active Protocol: Document 10/15/20 07:39 [facility] (Rec: 10/15/20 08:16 [facility] [id number]) Functional Tests 30 Second Sit to Stand Test Score 7 Five Times Sit to Stand Test Score 17 sec Functional Gait Assessment Score 18/30 PT-OP-F Manual Assessment Start: 09/04/20 12:57 Freq: Status: Active Protocol: Document 09/04/20 14:36 [facility] (Rec: 09/04/20 15:20 [facility] [id number]) Manual Assessments Soft Tissue Assessment Soft Tissue Mobility Assessment tightness in QL & R glute PT-OP-G Mobility & Gait Start: 09/04/20 12:57 Freq: Status: Active Protocol: Document 09/04/20 14:36 [facility] (Rec: 09/04/20 15:20 [facility] [id number]) OP Gait Assessment Comments Gait Comments Dec push off and very rigid upper body and trunk PT-OP-J Posture/Palpation/Skin Start: 09/04/20 12:57 Freq: Status: Active Protocol: Document 09/04/20 14:36 [facility] (Rec: 09/04/20 15:20 [facility] [id number]) Posture Evaluation Augusto Postural Classification System Vertebral Compression Test 2 Elbow Flexion Test 1 Lumbar Protective Mechanism Left AP 1 Lumbar Protective Mechanism Right AP 0 Lumbar Protective Mechanism Left PA 1 Lumbar Protective Mechanism Right PA 1 Comments Posture Comments R plevic shear, fwd flex at hips & inc kyphossis PT-OP-K Range of Motion Start: 09/04/20 12:57 Freq: Status: Active Protocol: Document 09/04/20 14:36 [facility] (Rec: 09/04/20 15:20 [facility] [id number]) Lumbar Spine Range of Motion Lumbar Spine Active Degrees Flexion 29 Extension 5 Rotation Left 40 Rotation Right 43 Lateral Flexion Left 10 Lateral Flexion Right 8 Comments pain w/R and SB R PT-OP-L Special Tests Start: 09/04/20 12:57 Freq: Status: Active Protocol: Document 09/04/20 14:36 [facility] (Rec: 09/04/20 15:20 [facility] [id number]) Special Tests Lumbar Spine Special Tests Juan Test Results tightness signficant B hip flexors Slump Test Results neg B Straight Leg Raise Test Results L 38, R 36 tightness in ACEVEDO PT-OP-M Strength Start: 09/04/20 12:57 Freq: Status: Active Protocol: Document 10/15/20 07:39 [facility] (Rec: 10/15/20 08:16 [facility] [id number]) Hip Strength Hip Manual Muscle Testing Left Flexion (L2) 4- Good- Extension (S1) 4- Good- Abduction 4- Good- External Rotation 4 Good Internal Rotation 5 Normal Comments pain in back w/L hip abd Right Flexion (L2) 3+ Fair+ Extension (S1) 3+ Fair+ Abduction 4- Good- External Rotation 3+ Fair+ Internal Rotation 4 Good Comments discomfort R hip Knee Strength Knee Manual Muscle Testing Right Flexion (S2) 5 Normal Extension (L3) 4 Good Left Flexion (S2) 5 Normal Extension (L3) 5 Normal Ankle/Foot Strength Ankle and Foot Manual Muscle Testing Right Dorsiflexion (L4) 5 Normal Plantarflexion (S1) 4- Good- Comments 10 heel raises Left Dorsiflexion (L4) 5 Normal Comments unable to heel raise PT-OP-Q Treatments Start: 09/04/20 12:57 Freq: Status: Active Protocol: Document 11/07/20 08:22 [facility] (Rec: 11/07/20 09:02 [facility] [id number]) Cardio Equipment Recumbent Bicycle Duration (Minutes) 5 Resistance 12 Seat Position 13 Gym Equipment Sport Cord step up Exercise Details 8 in step Cord/Resistance green Reps/Duration 10 B Therapeutic Exercises Supine Exercises 2 Supine Exercise Name juan test stretch Side bilateral Reps/Minutes 15 sec x4 ea active push 1 Supine Exercise Name SKTC w/opp quad set Side bilateral Reps/Minutes 15 sec x2 Standing Exercises 7 Standing Exercise Name wall posture w/B shoulder ext Side bilateral Reps/Minutes 1 min Comments focus on lumbar spine on wall & core activiation 6 Standing Exercise Name rows focusing on posture Side bilateral Equipment Used L2 Reps/Minutes 2x10 5 Standing Exercise Name hip flexor stretch Side bilateral Reps/Minutes 45 sec ea Manual Therapy Treatment Soft Tissue Mobilization 4 Body Location along iliac crest R & lat glutes Mobilization Type Rolling,Sustained Pressure Intensity/Depth Moderate Body Position Prone Joint Mobilizations 3 Joint hip R Direction inf glide FM PT-OP-R Modalities Start: 09/04/20 12:57 Freq: Status: Active Protocol: Document 11/07/20 08:22 [facility] (Rec: 11/07/20 09:02 [facility] [id number]) Hot Pack/Cold Pack Treatment Cold Pack Location LS Patient Position Hooklying Treatment Duration (minutes) 10 PT-OP-T Assessment and Plan Start: 09/04/20 12:57 Freq: Status: Active Protocol: Document 11/07/20 08:22 [facility] (Rec: 11/07/20 09:02 [facility] [id number]) Physical Therapy Assessment Goals Four Impairment strength Short Term Goal (STG) Pt will be indep w/HEP STG Duration achieved [employer]ing Goal (LTG) Pt will score at least 3/5 on LPM and have at least 4/5 LE MMT for B hips to improve stability in order to allow him to do his typical activities without inc pain. 10/15-improving LTG Duration 12/15/20 Three Impairment walking Short Term Goal (STG) Pt will be able to go for short walks w/o inc pain STG Duration achieved [employer] Goal (LTG) Pt will be able to do his typical walk down the hill to the trail and back home without inc pain more than 2 points. 10/15-discomfort after current walks LTG Duration 12/15/20 Two Impairment pain [employer] Goal (LTG) Pt will report no constant pain and only intermittent R hip and back pain that he is able to self manage. 10/15-still 2-3/10 general discomfort LTG Duration 11/04/20 One Impairment balance Fdc Goal (LTG) Pt will be able to score at least 25/30 on FGA to show dec risk for falls. 10/15- LTG Duration 12/15 Assessment Summary Assessment Pt showed improvement w/juan stretch w/active vs passive stretching. He did well with exercises but still requries cueing for wall posture Physical Therapy Plan Frequency and Duration Frequency of Treatment 2x/Week Duration of Treatment 2 months Plan of Care Start Date 10/15/20 Plan of Care End Date 12/15/20 Next Visit Focus/Plan Next Note Type Treatment Note Next Visit Plan cont to advance hip strength, manual for dec pain, PNF & core/hip stability
--- NOTE | 2020-11-18 09:53 | PT.OTN ---
Current Diagnoses Low back pain (11/18/20) Difficulty in walking, not elsewhere classified (11/18/20) Other abnormalities of gait and mobility (11/18/20) Abnormal posture (11/18/20) Weakness (11/18/20) Physical Therapy Treatment Note PT-OP-A Visit Information Start: 09/04/20 12:57 Freq: Status: Active Protocol: Document 11/18/20 08:17 [facility] (Rec: 11/18/20 09:51 [facility] [id number]) Out-Patient Physical Therapy Visit Information Visit Information Visit Type Treatment Note Visit Note 10/17 Visit Start Time 08:16 Visit Stop Time 09:06 Total Visit Minutes 50 Visit Number 12 Number of MANAGER E COMMERCE Visits 0 PT-OP-B Current Condition Start: 09/04/20 12:57 Freq: Status: Active Protocol: Document 09/04/20 14:36 [facility] (Rec: 09/04/20 15:20 [facility] [id number]) Current Condition History of Current Condition Onset Date chronic w/recent worsening Current Complaints R hip and LBP History of Current Condition Pt reports he is in pain all the time in R hip and R SI region into R LB. He is on ice 1-2x/day d/t pain. Pt has had injections and past PT which have been successful. He cont walking and exercises but once stopped PT, pain started to inc again. Pt reports he is getting fatigued with back pain on his walks and notes pain is just constant. Pt reports no recent falls. Notes picking up something that is heavy is becoming difficult and with bending over like working in the yard. Pt reports he felt like he really improved with activity tolerance for walking, balance and strength when doing PT but now its limited d/t back pain. He had a televisit w/ pain MD who sent him back to PT. Uses cane consistantly outside of the house. 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 Pt going to [facility] for neuro for his memory. Hx R ISMAEL. [place] would walk [place] to [address] then [place] (3/4 mile) but now they typically drive down and just walk the 3/[address] back. Prior Treatments and Tests PT and injections with good injections Treatment Goals Patient/Caregiver Goals be able to walk further without back fatigue, be able to walk down gravel hill to trail PT-OP-C Subjective Start: 09/04/20 12:57 Freq: Status: Active Protocol: Document 11/18/20 08:17 [facility] (Rec: 11/18/20 09:51 [facility] [id number]) OP-PT Subjective Patient Comments Patient Comments present for session. Reports her concern is pt states his pain is only 1-2/10 but he bends over a lot and leans into objects at home often and fatigues fast. PT-OP-D Balance Start: 09/04/20 12:57 Freq: Status: Active Protocol: Document 09/04/20 14:36 [facility] (Rec: 09/04/20 15:20 [facility] [id number]) Balance Tests Waggoner Balance Test Waggoner Balance Test Score 49 Single Limb Standing Single Limb- Right unable Single Limb- Left 2 sec w/UE movement PT-OP-E Functional Tests Start: 09/04/20 12:57 Freq: Status: Active Protocol: Document 11/18/20 08:17 [facility] (Rec: 11/18/20 09:51 [facility] [id number]) Functional Tests 30 Second Sit to Stand Test Score 9 Five Times Sit to Stand Test Score 16 sec Functional Gait Assessment Score 20/30 PT-OP-F Manual Assessment Start: 09/04/20 12:57 Freq: Status: Active Protocol: Document 09/04/20 14:36 [facility] (Rec: 09/04/20 15:20 [facility] [id number]) Manual Assessments Soft Tissue Assessment Soft Tissue Mobility Assessment tightness in QL & R glute PT-OP-G Mobility & Gait Start: 09/04/20 12:57 Freq: Status: Active Protocol: Document 09/04/20 14:36 [facility] (Rec: 09/04/20 15:20 [facility] [id number]) OP Gait Assessment Comments Gait Comments Dec push off and very rigid upper body and trunk PT-OP-J Posture/Palpation/Skin Start: 09/04/20 12:57 Freq: Status: Active Protocol: Document 09/04/20 14:36 [facility] (Rec: 09/04/20 15:20 [facility] [id number]) Posture Evaluation Augusto Postural Classification System Vertebral Compression Test 2 Elbow Flexion Test 1 Lumbar Protective Mechanism Left AP 1 Lumbar Protective Mechanism Right AP 0 Lumbar Protective Mechanism Left PA 1 Lumbar Protective Mechanism Right PA 1 Comments Posture Comments R plevic shear, fwd flex at hips & inc kyphossis PT-OP-K Range of Motion Start: 09/04/20 12:57 Freq: Status: Active Protocol: Document 09/04/20 14:36 [facility] (Rec: 09/04/20 15:20 [facility] [id number]) Lumbar Spine Range of Motion Lumbar Spine Active Degrees Flexion 29 Extension 5 Rotation Left 40 Rotation Right 43 Lateral Flexion Left 10 Lateral Flexion Right 8 Comments pain w/R and SB R PT-OP-L Special Tests Start: 09/04/20 12:57 Freq: Status: Active Protocol: Document 09/04/20 14:36 [facility] (Rec: 09/04/20 15:20 [facility] [id number]) Special Tests Lumbar Spine Special Tests Juan Test Results tightness signficant B hip flexors Slump Test Results neg B Straight Leg Raise Test Results L 38, R 36 tightness in ACEVEDO PT-OP-M Strength Start: 09/04/20 12:57 Freq: Status: Active Protocol: Document 10/15/20 07:39 [facility] (Rec: 10/15/20 08:16 [facility] [id number]) Hip Strength Hip Manual Muscle Testing Left Flexion (L2) 4- Good- Extension (S1) 4- Good- Abduction 4- Good- External Rotation 4 Good Internal Rotation 5 Normal Comments pain in back w/L hip abd Right Flexion (L2) 3+ Fair+ Extension (S1) 3+ Fair+ Abduction 4- Good- External Rotation 3+ Fair+ Internal Rotation 4 Good Comments discomfort R hip Knee Strength Knee Manual Muscle Testing Right Flexion (S2) 5 Normal Extension (L3) 4 Good Left Flexion (S2) 5 Normal Extension (L3) 5 Normal Ankle/Foot Strength Ankle and Foot Manual Muscle Testing Right Dorsiflexion (L4) 5 Normal Plantarflexion (S1) 4- Good- Comments 10 heel raises Left Dorsiflexion (L4) 5 Normal Comments unable to heel raise PT-OP-Q Treatments Start: 09/04/20 12:57 Freq: Status: Active Protocol: Document 11/18/20 08:17 [facility] (Rec: 11/18/20 09:51 [facility] [id number]) Cardio Equipment Recumbent Bicycle Duration (Minutes) 7 Resistance 12 Seat Position 13 Therapeutic Exercises Standing Exercises 1 Standing Exercise Name 30 sec sit to stand testing Neuro Re-Education Treatment Other Activities 1 Details FGA test Self-Care/Home Management Treatment Education Other Education edu to pt and that insurane may not authorize more. edu to discuss fatigue w /primary, possibly try DO treatment for back pain, talk to pain specialist re: pain management also, discussed cream options as asked ( CBD, arnica, voltaran, icyhot etc) and noted it is pt preference, discussed trying possibly eastern medicine like acupuncture for pain or doing massage. Edut o use lower chair at home for sit to stands, edu to sit down or lay down and strech and rest if gets too fatigued vs standing and leaning over. PT-OP-R Modalities Start: 09/04/20 12:57 Freq: Status: Active Protocol: Document 11/07/20 08:22 [facility] (Rec: 11/07/20 09:02 [facility] [id number]) Hot Pack/Cold Pack Treatment Cold Pack Location LS Patient Position Hooklying Treatment Duration (minutes) 10 PT-OP-T Assessment and Plan Start: 09/04/20 12:57 Freq: Status: Active Protocol: Document 11/18/20 08:17 [facility] (Rec: 11/18/20 09:51 [facility] [id number]) Physical Therapy Assessment Goals Four Impairment strength Short Term Goal (STG) Pt will be indep w/HEP STG Duration achieved [employer] Goal (LTG) Pt will score at least 3/5 on LPM and have at least 4/5 LE MMT for B hips to improve stability in order to allow him to do his typical activities without inc pain. 10/15-improving LTG Duration 12/15/20 Three Impairment walking Short Term Goal (STG) Pt will be able to go for short walks w/o inc pain STG Duration achieved Usp Goal (LTG) Pt will be able to do his typical walk down the hill to the trail and back home without inc pain more than 2 points. 10/15-discomfort after current walks LTG Duration 12/15/20 Two Impairment pain [employer] Goal (LTG) Pt will report no constant pain and only intermittent R hip and back pain that he is able to self manage. 10/15-still 2-3/10 general discomfort LTG Duration 11/04/20 One Impairment balance Usp Goal (LTG) Pt will be able to score at least 25/30 on FGA to show dec risk for falls. 10/15-11/18- LTG Duration 12/15 Assessment Summary Assessment Pt is making slow progress with therapy at this time likely partly d/t memory problems and chronicity of back pain. He is making slow but steady progress with functional mobility but pain is still a problem and pt does show at risk for falls based on testing today. Physical Therapy Plan Frequency and Duration Frequency of Treatment 2x/Week Duration of Treatment 2 months Plan of Care Start Date 10/15/20 Plan of Care End Date 12/15/20 Next Visit Focus/Plan Next Note Type Treatment Note Next Visit Plan cont to advance hip strength, manual for dec pain, PNF & core/hip stability
--- NOTE | 2020-11-25 09:45 | PT-OP ANOTE ---
Pt did not know he had any further scheduled appts. [employer]umper called re: no show and denial of further PT but 1 appt left on auth. Pt on waitlist for days he is available.
--- NOTE | 2020-12-25 17:56 | PT.OTN ---
Current Diagnoses Low back pain (12/25/20) Difficulty in walking, not elsewhere classified (12/25/20) Other abnormalities of gait and mobility (12/25/20) Abnormal posture (12/25/20) Weakness (12/25/20) Physical Therapy Treatment Note PT-OP-A Visit Information Start: 09/04/20 12:57 Freq: Status: Active Protocol: Document 12/25/20 15:22 [facility] (Rec: 12/25/20 17:56 [facility] [id number]) Out-Patient Physical Therapy Visit Information Visit Information Visit Type Progress Note Visit Note 05/19 Visit Start Time 15:19 Visit Stop Time 16:05 Total Visit Minutes 46 Visit Number 13 Number of ORNAMENTAL BRICK INSTALLER Visits 0 PT-OP-B Current Condition Start: 09/04/20 12:57 Freq: Status: Active Protocol: Document 09/04/20 14:36 [facility] (Rec: 09/04/20 15:20 [facility] [id number]) Current Condition History of Current Condition Onset Date chronic w/recent worsening Current Complaints R hip and LBP History of Current Condition Pt reports he is in pain all the time in R hip and R SI region into R LB. He is on ice 1-2x/day d/t pain. Pt has had injections and past PT which have been successful. He cont walking and exercises but once stopped PT, pain started to inc again. Pt reports he is getting fatigued with back pain on his walks and notes pain is just constant. Pt reports no recent falls. Notes picking up something that is heavy is becoming difficult and with bending over like working in the yard. Pt reports he felt like he really improved with activity tolerance for walking, balance and strength when doing PT but now its limited d/t back pain. He had a televisit w/ pain MD who sent him back to PT. Uses cane consistantly outside of the house. 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 Pt going to [facility] for neuro for his memory. Hx R ISMAEL. [place] would walk [place] to [address] then going to [place] (3/4 mile) but now they typically drive down and just walk the 3/[address] back. Prior Treatments and Tests PT and injections with good injections Treatment Goals Patient/Caregiver Goals be able to walk further without back fatigue, be able to walk down gravel hill to trail PT-OP-C Subjective Start: 09/04/20 12:57 Freq: Status: Active Protocol: Document 12/25/20 15:22 [facility] (Rec: 12/25/20 17:56 [facility] [id number]) OP-PT Subjective Patient Comments Patient Comments notes she feels like he is worse. He is bent over a lot. He holds onto his thighs and feels like it helps him. He was sore and acevedo dtoo much pain to try to stand up straight. Notes he feels good when using the shopping cart. He has had Matthew's surgery on his legs. He has had a lot on his legs. wondering if walker would be helpful. Dr. Kennedi solitario MD is ordering a MRI but awaiting approval. PT-OP-D Balance Start: 09/04/20 12:57 Freq: Status: Active Protocol: Document 09/04/20 14:36 [facility] (Rec: 09/04/20 15:20 [facility] [id number]) Balance Tests Waggoner Balance Test Waggoner Balance Test Score 49 Single Limb Standing Single Limb- Right unable Single Limb- Left 2 sec w/UE movement PT-OP-E Functional Tests Start: 09/04/20 12:57 Freq: Status: Active Protocol: Document 12/25/20 15:22 [facility] (Rec: 12/25/20 17:56 [facility] [id number]) Functional Tests 30 Second Sit to Stand Test Score 7 Five Times Sit to Stand Test Score 23 sec PT-OP-F Manual Assessment Start: 09/04/20 12:57 Freq: Status: Active Protocol: Document 09/04/20 14:36 [facility] (Rec: 09/04/20 15:20 [facility] [id number]) Manual Assessments Soft Tissue Assessment Soft Tissue Mobility Assessment tightness in QL & R glute PT-OP-G Mobility & Gait Start: 09/04/20 12:57 Freq: Status: Active Protocol: Document 09/04/20 14:36 [facility] (Rec: 09/04/20 15:20 [facility] [id number]) OP Gait Assessment Comments Gait Comments Dec push off and very rigid upper body and trunk PT-OP-J Posture/Palpation/Skin Start: 09/04/20 12:57 Freq: Status: Active Protocol: Document 09/04/20 14:36 [facility] (Rec: 09/04/20 15:20 [facility] [id number]) Posture Evaluation Augusto Postural Classification System Vertebral Compression Test 2 Elbow Flexion Test 1 Lumbar Protective Mechanism Left AP 1 Lumbar Protective Mechanism Right AP 0 Lumbar Protective Mechanism Left PA 1 Lumbar Protective Mechanism Right PA 1 Comments Posture Comments R plevic shear, fwd flex at hips & inc kyphossis PT-OP-K Range of Motion Start: 09/04/20 12:57 Freq: Status: Active Protocol: Document 09/04/20 14:36 [facility] (Rec: 09/04/20 15:20 [facility] [id number]) Lumbar Spine Range of Motion Lumbar Spine Active Degrees Flexion 29 Extension 5 Rotation Left 40 Rotation Right 43 Lateral Flexion Left 10 Lateral Flexion Right 8 Comments pain w/R and SB R PT-OP-L Special Tests Start: 09/04/20 12:57 Freq: Status: Active Protocol: Document 09/04/20 14:36 [facility] (Rec: 09/04/20 15:20 [facility] [id number]) Special Tests Lumbar Spine Special Tests Juan Test Results tightness signficant B hip flexors Slump Test Results neg B Straight Leg Raise Test Results L 38, R 36 tightness in ACEVEDO PT-OP-M Strength Start: 09/04/20 12:57 Freq: Status: Active Protocol: Document 12/25/20 15:22 [facility] (Rec: 12/25/20 17:56 [facility] [id number]) Hip Strength Hip Manual Muscle Testing Left Flexion (L2) 4- Good- Extension (S1) 4- Good- Abduction 4- Good- External Rotation 4 Good Internal Rotation 4 Good Right Flexion (L2) 3+ Fair+ Extension (S1) 3+ Fair+ Abduction 4- Good- External Rotation 3 Fair Internal Rotation 4- Good- Comments discomfort R hip Knee Strength Knee Manual Muscle Testing Right Flexion (S2) 4 Good Extension (L3) 4- Good- Left Flexion (S2) 4 Good Extension (L3) 5 Normal Ankle/Foot Strength Ankle and Foot Manual Muscle Testing Right Dorsiflexion (L4) 5 Normal Plantarflexion (S1) 4- Good- Comments 10 heel raises Left Dorsiflexion (L4) 5 Normal Comments unable to heel raise PT-OP-Q Treatments Start: 09/04/20 12:57 Freq: Status: Active Protocol: Document 12/25/20 15:22 [facility] (Rec: 12/25/20 17:56 [facility] [id number]) Cardio Equipment Recumbent Bicycle Duration (Minutes) 9 Resistance 12 Seat Position 13 Therapeutic Exercises Standing Exercises 7 Standing Exercise Name wall posture w/B shoulder ext Side bilateral Reps/Minutes 1 min Comments focus on lumbar spine on wall & core activiation 5 Standing Exercise Name hip flexor stretch Side bilateral Reps/Minutes 45 sec ea 4 Standing Exercise Name pec corner stretch Side bilateral Reps/Minutes 30 sec x2 Gait Training Gait Activity gait Comments walking with walking sticks- worked on sequencing w/1 and 2 sticks -pt did best w/2 sticks and did well w/stick in R hand likely d/t inabilityt o bend over to touch RLE during gait.EDu for sequencing and discussed 2 for use for long walks Self-Care/Home Management Treatment Education Other Education edu to discuss holding leg w/ MD and edu for maintenance of strength w/use of system trainer fo rcues at home. Edu for gait outdoors w/2 sticks and 1 stick for distances outside of house or if sore. edu on where to use massager on pt (QL & ES region & glute) PT-OP-R Modalities Start: 09/04/20 12:57 Freq: Status: Active Protocol: Document 11/07/20 08:22 [facility] (Rec: 11/07/20 09:02 [facility] [id number]) Hot Pack/Cold Pack Treatment Cold Pack Location LS Patient Position Hooklying Treatment Duration (minutes) 10 PT-OP-T Assessment and Plan Start: 09/04/20 12:57 Freq: Status: Active Protocol: Document 12/25/20 15:22 [facility] (Rec: 12/25/20 17:56 [facility] [id number]) Physical Therapy Assessment Goals Four Impairment strength Short Term Goal (STG) Pt will be indep w/HEP STG Duration achieved [facility] Goal (LTG) Pt will score at least 3/5 on LPM and have at least 4/5 LE MMT for B hips to improve stability in order to allow him to do his typical activities without inc pain. 10/15-improving 12/19-worse d/t no PT LTG Duration 01/25/21 Three Impairment walking Short Term Goal (STG) Pt will be able to go for short walks w/o inc pain STG Duration achieved Hat Presser Goal (LTG) Pt will be able to do his typical walk down the hill to the trail and back home without inc pain more than 2 points. 10/15-discomfort after current walks 12/25-pt walking shorter walks d/t pain LTG Duration 01/25/21 Two Impairment pain [facility] Goal (LTG) Pt will report no constant pain and only intermittent R hip and back pain that he is able to self manage. 10/15-still 2-3/10 general discomfort LTG Duration 01/25/21 One Impairment balance [facility] Goal (LTG) Pt will be able to score at least 25/30 on FGA to show dec risk for falls. 10/15-11/18- LTG Duration 02/22/21 Assessment Summary Assessment Pt has not been seen for 1 month d/t waiting on authorization and for pt to be able to get in once appointments were authorized. He has declined significantly since last session and is now leaning into RLE w/RUE when walking & reaching for surfaces. Dicussed important exercises to do and home care and info to discuss w/MD Physical Therapy Plan Frequency and Duration Frequency of Treatment 1x Duration of Treatment 1 month Plan of Care Start Date 12/25/20 Plan of Care End Date 01/25/21 Therapeutic Interventions Therapeutic Interventions Aquatic Therapy,Balance Training,Gait Training,Home Exercise Program,Joint Mobilizations,Manual Therapy, Neuromuscular Re-education, Patient/Caregiver Education, Self-Care/Home Management,Soft Tissue Mobilization,Taping, Therapeutic Activities, Therapeutic Exercises Modalities Cold Pack/Ice Massage,Electric Stimulation,Hot Packs, Ultrasound Next Visit Focus/Plan Next Note Type Treatment Note Next Visit Plan Review exercsies, try walker to show pt and how it works and how to set up, SL balance & manual for dec pain
--- NOTE | 2020-12-25 17:57 | PT.OPPOC ---
Physical, Occupational & Speech Therapy At [facility] Current Diagnoses Low back pain (12/25/20) Difficulty in walking, not elsewhere classified (12/25/20) Other abnormalities of gait and mobility (12/25/20) Abnormal posture (12/25/20) Weakness (12/25/20) Visit Care Team Role Provider Type To Vallejo MD Family Provider Physician Primary Care Provider Specialty: Internal Medicine Address: [address] [place] [address], [address] Email: [email or web address] Dawna Kolb MD Attending Provider Non-Staff Referring Provider Specialty: Physical Medicine and Rehab Address: [address] [place] [address], [address] Email: Plan Of Care PT-OP-T Assessment and Plan Start: 09/04/20 12:57 Freq: Status: Active Protocol: Document 12/25/20 15:22 [facility] (Rec: 12/25/20 17:56 [facility] [id number]) Physical Therapy Assessment Goals Four Impairment strength Short Term Goal (STG) Pt will be indep w/HEP STG Duration achieved Custodial Goal (LTG) Pt will score at least 3/5 on LPM and have at least 4/5 LE MMT for B hips to improve stability in order to allow him to do his typical activities without inc pain. 10/15-improving 12/19-worse d/t no PT LTG Duration 01/25/21 Three Impairment walking Short Term Goal (STG) Pt will be able to go for short walks w/o inc pain STG Duration achieved Inspector And Adjuster Golf Club Head Goal (LTG) Pt will be able to do his typical walk down the hill to the trail and back home without inc pain more than 2 points. 10/15-discomfort after current walks 12/25-pt walking shorter walks d/t pain LTG Duration 01/25/21 Two Impairment pain Custodial Goal (LTG) Pt will report no constant pain and only intermittent R hip and back pain that he is able to self manage. 10/15-still 2-3/10 general discomfort LTG Duration 01/25/21 One Impairment balance Inspector And Adjuster [employer] Head Goal (LTG) Pt will be able to score at least 25/30 on FGA to show dec risk for falls. 10/15-11/18- LTG Duration 02/22/21 Assessment Summary Assessment Pt has not been seen for 1 month d/t waiting on authorization and for pt to be able to get in once appointments were authorized. He has declined significantly since last session and is now leaning into RLE w/RUE when walking & reaching for surfaces. Dicussed important exercises to do and home care and info to discuss w/MD Physical Therapy Plan Frequency and Duration Frequency of Treatment 1x Duration of Treatment 1 month Plan of Care Start Date 12/25/20 Plan of Care End Date 01/25/21 Therapeutic Interventions Therapeutic Interventions Aquatic Therapy,Balance Training,Gait Training,Home Exercise Program,Joint Mobilizations,Manual Therapy, Neuromuscular Re-education, Patient/Caregiver Education, Self-Care/Home Management,Soft Tissue Mobilization,Taping, Therapeutic Activities, Therapeutic Exercises Modalities Cold Pack/Ice Massage,Electric Stimulation,Hot Packs, Ultrasound Next Visit Focus/Plan Next Note Type Treatment Note Next Visit Plan Review exercsies, try walker to show pt and how it works and how to set up, SL balance & manual for dec pain Plan of Care Dates Plan of Care Start Date 12/25/20 Plan of Care End Date 01/25/21 Electronically Signed by: Reina Rider, PT 12/25/20 1628 Please Sign and Return: I have reviewed this Plan of Care and certify that the skilled therapy services above are required to meet the patient?s needs. Physician Signature Date Printed Name and Credentials Clinical Instructor Signature Printed Name and Credentials
--- NOTE | 2020-12-31 13:16 | PT.OTN ---
Current Diagnoses Low back pain (12/31/20) Difficulty in walking, not elsewhere classified (12/31/20) Other abnormalities of gait and mobility (12/31/20) Abnormal posture (12/31/20) Weakness (12/31/20) Physical Therapy Treatment Note PT-OP-A Visit Information Start: 09/04/20 12:57 Freq: Status: Active Protocol: Document 12/31/20 13:10 [facility] (Rec: 12/31/20 13:16 [facility] [id number]) Out-Patient Physical Therapy Visit Information Visit Information Visit Type Treatment Note Visit Start Time 09:01 Visit Stop Time 09:45 Total Visit Minutes 44 Visit Number 14 Number of BED LASTER Visits 0 PT-OP-B Current Condition Start: 09/04/20 12:57 Freq: Status: Active Protocol: Document 09/04/20 14:36 [facility] (Rec: 09/04/20 15:20 [facility] [id number]) Current Condition History of Current Condition Onset Date chronic w/recent worsening Current Complaints R hip and LBP History of Current Condition Pt reports he is in pain all the time in R hip and R SI region into R LB. He is on ice 1-2x/day d/t pain. Pt has had injections and past PT which have been successful. He cont walking and exercises but once stopped PT, pain started to inc again. Pt reports he is getting fatigued with back pain on his walks and notes pain is just constant. Pt reports no recent falls. Notes picking up something that is heavy is becoming difficult and with bending over like working in the yard. Pt reports he felt like he really improved with activity tolerance for walking, balance and strength when doing PT but now its limited d/t back pain. He had a televisit w/ pain MD who sent him back to PT. Uses cane consistantly outside of the house. 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 Pt going to [facility] for neuro for his memory. Hx R ISMAEL. [place] would walk [place] to [address] then going [place] (3/4 mile) but now they typically drive down and just walk the 3/[address] back. Prior Treatments and Tests PT and injections with good injections Treatment Goals Patient/Caregiver Goals be able to walk further without back fatigue, be able to walk down gravel hill to trail PT-OP-C Subjective Start: 09/04/20 12:57 Freq: Status: Active Protocol: Document 12/31/20 13:10 [facility] (Rec: 12/31/20 13:16 [facility] [id number]) OP-PT Subjective Patient Comments Patient Comments reports doing very small distances walking w/2 sticks but that is all he can tolerate. Pt has not gotten approved for MRI yet. Still significant pain. PT-OP-D Balance Start: 09/04/20 12:57 Freq: Status: Active Protocol: Document 09/04/20 14:36 [facility] (Rec: 09/04/20 15:20 [facility] [id number]) Balance Tests Waggoner Balance Test Waggoner Balance Test Score 49 Single Limb Standing Single Limb- Right unable Single Limb- Left 2 sec w/UE movement PT-OP-E Functional Tests Start: 09/04/20 12:57 Freq: Status: Active Protocol: Document 12/25/20 15:22 [facility] (Rec: 12/25/20 17:56 [facility] [id number]) Functional Tests 30 Second Sit to Stand Test Score 7 Five Times Sit to Stand Test Score 23 sec PT-OP-F Manual Assessment Start: 09/04/20 12:57 Freq: Status: Active Protocol: Document 09/04/20 14:36 [facility] (Rec: 09/04/20 15:20 [facility] [id number]) Manual Assessments Soft Tissue Assessment Soft Tissue Mobility Assessment tightness in QL & R glute PT-OP-G Mobility & Gait Start: 09/04/20 12:57 Freq: Status: Active Protocol: Document 09/04/20 14:36 [facility] (Rec: 09/04/20 15:20 [facility] [id number]) OP Gait Assessment Comments Gait Comments Dec push off and very rigid upper body and trunk PT-OP-J Posture/Palpation/Skin Start: 09/04/20 12:57 Freq: Status: Active Protocol: Document 09/04/20 14:36 [facility] (Rec: 09/04/20 15:20 [facility] [id number]) Posture Evaluation Augusto Postural Classification System Vertebral Compression Test 2 Elbow Flexion Test 1 Lumbar Protective Mechanism Left AP 1 Lumbar Protective Mechanism Right AP 0 Lumbar Protective Mechanism Left PA 1 Lumbar Protective Mechanism Right PA 1 Comments Posture Comments R plevic shear, fwd flex at hips & inc kyphossis PT-OP-K Range of Motion Start: 09/04/20 12:57 Freq: Status: Active Protocol: Document 09/04/20 14:36 [facility] (Rec: 09/04/20 15:20 [facility] [id number]) Lumbar Spine Range of Motion Lumbar Spine Active Degrees Flexion 29 Extension 5 Rotation Left 40 Rotation Right 43 Lateral Flexion Left 10 Lateral Flexion Right 8 Comments pain w/R and SB R PT-OP-L Special Tests Start: 09/04/20 12:57 Freq: Status: Active Protocol: Document 09/04/20 14:36 [facility] (Rec: 09/04/20 15:20 [facility] [id number]) Special Tests Lumbar Spine Special Tests Juan Test Results tightness signficant B hip flexors Slump Test Results neg B Straight Leg Raise Test Results L 38, R 36 tightness in ACEVEDO PT-OP-M Strength Start: 09/04/20 12:57 Freq: Status: Active Protocol: Document 12/25/20 15:22 [facility] (Rec: 12/25/20 17:56 [facility] [id number]) Hip Strength Hip Manual Muscle Testing Left Flexion (L2) 4- Good- Extension (S1) 4- Good- Abduction 4- Good- External Rotation 4 Good Internal Rotation 4 Good Right Flexion (L2) 3+ Fair+ Extension (S1) 3+ Fair+ Abduction 4- Good- External Rotation 3 Fair Internal Rotation 4- Good- Comments discomfort R hip Knee Strength Knee Manual Muscle Testing Right Flexion (S2) 4 Good Extension (L3) 4- Good- Left Flexion (S2) 4 Good Extension (L3) 5 Normal Ankle/Foot Strength Ankle and Foot Manual Muscle Testing Right Dorsiflexion (L4) 5 Normal Plantarflexion (S1) 4- Good- Comments 10 heel raises Left Dorsiflexion (L4) 5 Normal Comments unable to heel raise PT-OP-Q Treatments Start: 09/04/20 12:57 Freq: Status: Active Protocol: Document 12/31/20 13:10 [facility] (Rec: 12/31/20 13:16 [facility] [id number]) Therapeutic Exercises Supine Exercises bridge Side bilateral Reps/Minutes 10 sec hold x8 Comments core focus Tabd Supine Exercise Name w/SLR Side bilateral Reps/Minutes 15 stretch Supine Exercise Name L knee to chest w/quad set R for stretch R hip flex Reps/Minutes 30 sec 2 Supine Exercise Name HS stretch Side bilateral Reps/Minutes 30 sec 1 Supine Exercise Name LTR Side bilateral Reps/Minutes 10 Comments focus on core Manual Therapy Treatment Soft Tissue Mobilization 4 Body Location along iliac crest R & lat glutes Mobilization Type Rolling,Sustained Pressure Intensity/Depth Moderate Body Position Prone Self-Care/Home Management Treatment Education Other Education walker set up to pt and edu how to set up at home if they decide to get one. Discussed that furniture surfing is not safe so if he is doing that then to use AD In home. Edu on using sititng and laying down as needed for relief and gradually progress to increased time spent upright. PT-OP-R Modalities Start: 09/04/20 12:57 Freq: Status: Active Protocol: Document 11/07/20 08:22 [facility] (Rec: 11/07/20 09:02 [facility] [id number]) Hot Pack/Cold Pack Treatment Cold Pack Location LS Patient Position Hooklying Treatment Duration (minutes) 10 PT-OP-T Assessment and Plan Start: 09/04/20 12:57 Freq: Status: Active Protocol: Document 12/31/20 13:10 [facility] (Rec: 12/31/20 13:16 [facility] [id number]) Physical Therapy Assessment Goals Four Impairment strength Short Term Goal (STG) Pt will be indep w/HEP STG Duration achieved Customer Service Coordinator Goal (LTG) Pt will score at least 3/5 on LPM and have at least 4/5 LE MMT for B hips to improve stability in order to allow him to do his typical activities without inc pain. 10/15-improving 12/19-worse d/t no PT LTG Duration 01/25/21 Three Impairment walking Short Term Goal (STG) Pt will be able to go for short walks w/o inc pain STG Duration achieved Customer Service Coordinator Goal (LTG) Pt will be able to do his typical walk down the hill to the trail and back home without inc pain more than 2 points. 10/15-discomfort after current walks 12/25-pt walking shorter walks d/t pain LTG Duration 01/25/21 Two Impairment pain Customer Service Coordinator Goal (LTG) Pt will report no constant pain and only intermittent R hip and back pain that he is able to self manage. 10/15-still 2-3/10 general discomfort LTG Duration 01/25/21 One Impairment balance [facility] Goal (LTG) Pt will be able to score at least 25/30 on FGA to show dec risk for falls. 10/15-11/18- LTG Duration 02/22/21 Assessment Summary Assessment Pt did well with exercises but did requires some cues. Pt given new handout for exercises to remind him of his core exercises for nathan along w/strengthening and stretching . Pt does amb better with walker and/or 2 sticks at this time. Physical Therapy Plan Frequency and Duration Frequency of Treatment 1x Duration of Treatment 1 month Plan of Care Start Date 12/25/20 Plan of Care End Date 01/25/21 Next Visit Focus/Plan Next Note Type Treatment Note Next Visit Plan Review exercsies,, SL balance & manual for dec pain
--- NOTE | 2021-01-07 08:20 | PT.OTN ---
Current Diagnoses Low back pain (01/07/21) Difficulty in walking, not elsewhere classified (01/07/21) Other abnormalities of gait and mobility (01/07/21) Abnormal posture (01/07/21) Weakness (01/07/21) Physical Therapy Treatment Note PT-OP-A Visit Information Start: 09/04/20 12:57 Freq: Status: Active Protocol: Document 01/07/21 07:30 [facility] (Rec: 01/07/21 08:19 [facility] [id number]) Out-Patient Physical Therapy Visit Information Visit Information Visit Type Treatment Note Visit Start Time 07:30 Visit Stop Time 08:13 Total Visit Minutes 43 Visit Number 15 Number of SENIOR PROCESS ENGINEER Visits 0 PT-OP-B Current Condition Start: 09/04/20 12:57 Freq: Status: Active Protocol: Document 09/04/20 14:36 [facility] (Rec: 09/04/20 15:20 [facility] [id number]) Current Condition History of Current Condition Onset Date chronic w/recent worsening Current Complaints R hip and LBP History of Current Condition Pt reports he is in pain all the time in R hip and R SI region into R LB. He is on ice 1-2x/day d/t pain. Pt has had injections and past PT which have been successful. He cont walking and exercises but once stopped PT, pain started to inc again. Pt reports he is getting fatigued with back pain on his walks and notes pain is just constant. Pt reports no recent falls. Notes picking up something that is heavy is becoming difficult and with bending over like working in the yard. Pt reports he felt like he really improved with activity tolerance for walking, balance and strength when doing PT but now its limited d/t back pain. He had a televisit w/ pain MD who sent him back to PT. Uses cane consistantly outside of the house. 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 Pt going to [facility] for neuro for his memory. Hx R ISMAEL. Usually would walk [place] to [address] then going to [place] (3/4 mile) but now they typically drive down and just walk the 3/[address] back. Prior Treatments and Tests PT and injections with good injections Treatment Goals Patient/Caregiver Goals be able to walk further without back fatigue, be able to walk down gravel hill to trail PT-OP-C Subjective Start: 09/04/20 12:57 Freq: Status: Active Protocol: Document 01/07/21 07:30 [facility] (Rec: 01/07/21 08:19 [facility] [id number]) OP-PT Subjective Patient Comments Patient Comments reports getting pt back brace which is helpful for him . PT-OP-D Balance Start: 09/04/20 12:57 Freq: Status: Active Protocol: Document 09/04/20 14:36 [facility] (Rec: 09/04/20 15:20 [facility] [id number]) Balance Tests Waggoner Balance Test Waggoner Balance Test Score 49 Single Limb Standing Single Limb- Right unable Single Limb- Left 2 sec w/UE movement PT-OP-E Functional Tests Start: 09/04/20 12:57 Freq: Status: Active Protocol: Document 12/25/20 15:22 [facility] (Rec: 12/25/20 17:56 [facility] [id number]) Functional Tests 30 Second Sit to Stand Test Score 7 Five Times Sit to Stand Test Score 23 sec PT-OP-F Manual Assessment Start: 09/04/20 12:57 Freq: Status: Active Protocol: Document 09/04/20 14:36 [facility] (Rec: 09/04/20 15:20 [facility] [id number]) Manual Assessments Soft Tissue Assessment Soft Tissue Mobility Assessment tightness in QL & R glute PT-OP-G Mobility & Gait Start: 09/04/20 12:57 Freq: Status: Active Protocol: Document 09/04/20 14:36 [facility] (Rec: 09/04/20 15:20 [facility] [id number]) OP Gait Assessment Comments Gait Comments Dec push off and very rigid upper body and trunk PT-OP-J Posture/Palpation/Skin Start: 09/04/20 12:57 Freq: Status: Active Protocol: Document 09/04/20 14:36 [facility] (Rec: 09/04/20 15:20 [facility] [id number]) Posture Evaluation Augusto Postural Classification System Vertebral Compression Test 2 Elbow Flexion Test 1 Lumbar Protective Mechanism Left AP 1 Lumbar Protective Mechanism Right AP 0 Lumbar Protective Mechanism Left PA 1 Lumbar Protective Mechanism Right PA 1 Comments Posture Comments R plevic shear, fwd flex at hips & inc kyphossis PT-OP-K Range of Motion Start: 09/04/20 12:57 Freq: Status: Active Protocol: Document 09/04/20 14:36 [facility] (Rec: 09/04/20 15:20 [facility] [id number]) Lumbar Spine Range of Motion Lumbar Spine Active Degrees Flexion 29 Extension 5 Rotation Left 40 Rotation Right 43 Lateral Flexion Left 10 Lateral Flexion Right 8 Comments pain w/R and SB R PT-OP-L Special Tests Start: 09/04/20 12:57 Freq: Status: Active Protocol: Document 09/04/20 14:36 [facility] (Rec: 09/04/20 15:20 [facility] [id number]) Special Tests Lumbar Spine Special Tests Juan Test Results tightness signficant B hip flexors Slump Test Results neg B Straight Leg Raise Test Results L 38, R 36 tightness in ACEVEDO PT-OP-M Strength Start: 09/04/20 12:57 Freq: Status: Active Protocol: Document 12/25/20 15:22 [facility] (Rec: 12/25/20 17:56 [facility] [id number]) Hip Strength Hip Manual Muscle Testing Left Flexion (L2) 4- Good- Extension (S1) 4- Good- Abduction 4- Good- External Rotation 4 Good Internal Rotation 4 Good Right Flexion (L2) 3+ Fair+ Extension (S1) 3+ Fair+ Abduction 4- Good- External Rotation 3 Fair Internal Rotation 4- Good- Comments discomfort R hip Knee Strength Knee Manual Muscle Testing Right Flexion (S2) 4 Good Extension (L3) 4- Good- Left Flexion (S2) 4 Good Extension (L3) 5 Normal Ankle/Foot Strength Ankle and Foot Manual Muscle Testing Right Dorsiflexion (L4) 5 Normal Plantarflexion (S1) 4- Good- Comments 10 heel raises Left Dorsiflexion (L4) 5 Normal Comments unable to heel raise PT-OP-Q Treatments Start: 09/04/20 12:57 Freq: Status: Active Protocol: Document 01/07/21 07:30 [facility] (Rec: 01/07/21 08:19 [facility] [id number]) Manual Therapy Treatment Soft Tissue Mobilization 4 Body Location along iliac crest R & glutes Mobilization Type Rolling,Sustained Pressure Intensity/Depth Moderate Body Position Sidelying 3 Body Location ES Mobilization Type Rolling,Sustained Pressure Intensity/Depth Moderate Body Position Sidelying Self-Care/Home Management Treatment Education Other Education edu re: how meds like ibuprofen vs tylenol work and to discuss w/MD re: which is most appropriate. Edu re: different options of topical creams (CBD, salonpas, kev) and use prn for pain, edu for seeing ND if other marvin approaches dont work, edu to use back brace for walks, and end of night when pt fatigued, edu that ice and/or heat can be helpful PT-OP-R Modalities Start: 09/04/20 12:57 Freq: Status: Active Protocol: Document 11/07/20 08:22 [facility] (Rec: 11/07/20 09:02 [facility] [id number]) Hot Pack/Cold Pack Treatment Cold Pack Location LS Patient Position Hooklying Treatment Duration (minutes) 10 PT-OP-T Assessment and Plan Start: 09/04/20 12:57 Freq: Status: Active Protocol: Document 01/07/21 07:30 [facility] (Rec: 01/07/21 08:19 [facility] [id number]) Physical Therapy Assessment Goals Four Impairment strength Short Term Goal (STG) Pt will be indep w/HEP STG Duration achieved Executive Office Manager Goal (LTG) Pt will score at least 3/5 on LPM and have at least 4/5 LE MMT for B hips to improve stability in order to allow him to do his typical activities without inc pain. 10/15-improving 12/19-worse d/t no PT LTG Duration 01/25/21 Three Impairment walking Short Term Goal (STG) Pt will be able to go for short walks w/o inc pain STG Duration achieved Retirement Goal (LTG) Pt will be able to do his typical walk down the hill to the trail and back home without inc pain more than 2 points. 10/15-discomfort after current walks 12/25-pt walking shorter walks d/t pain LTG Duration 01/25/21 Two Impairment pain Retirement Goal (LTG) Pt will report no constant pain and only intermittent R hip and back pain that he is able to self manage. 10/15-still 2-3/10 general discomfort LTG Duration 01/25/21 One Impairment balance Executive Office Manager Goal (LTG) Pt will be able to score at least 25/30 on FGA to show dec risk for falls. 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 Significant time spent on edu again w/ and pt w/good understanding. Physical Therapy Plan Frequency and Duration Frequency of Treatment 1x Duration of Treatment 1 month Plan of Care Start Date 12/25/20 Plan of Care End Date 01/25/21 Next Visit Focus/Plan Next Note Type Discharge Summary Next Visit Plan dec pain and review exercises and info as needed
--- NOTE | 2021-01-22 10:27 | PT.OTN ---
Current Diagnoses Low back pain (01/22/21) Difficulty in walking, not elsewhere classified (01/22/21) Other abnormalities of gait and mobility (01/22/21) Abnormal posture (01/22/21) Weakness (01/22/21) Physical Therapy Treatment Note PT-OP-A Visit Information Start: 09/04/20 12:57 Freq: Status: Active Protocol: Document 01/22/21 10:18 [facility] (Rec: 01/22/21 10:27 [facility] [id number]) Out-Patient Physical Therapy Visit Information Visit Information Visit Type Discharge Summary Visit Start Time 09:20 Visit Stop Time 10:15 Total Visit Minutes 55 Visit Number 16 Number of POULTRY HANGER Visits 0 PT-OP-B Current Condition Start: 09/04/20 12:57 Freq: Status: Active Protocol: Document 09/04/20 14:36 [facility] (Rec: 09/04/20 15:20 [facility] [id number]) Current Condition History of Current Condition Onset Date chronic w/recent worsening Current Complaints R hip and LBP History of Current Condition Pt reports he is in pain all the time in R hip and R SI region into R LB. He is on ice 1-2x/day d/t pain. Pt has had injections and past PT which have been successful. He cont walking and exercises but once stopped PT, pain started to inc again. Pt reports he is getting fatigued with back pain on his walks and notes pain is just constant. Pt reports no recent falls. Notes picking up something that is heavy is becoming difficult and with bending over like working in the yard. Pt reports he felt like he really improved with activity tolerance for walking, balance and strength when doing PT but now its limited d/t back pain. He had a televisit w/ pain MD who sent him back to PT. Uses cane consistantly outside of the house. 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 Pt going to [facility] for neuro for his memory. Hx R ISMAEL. Usually would walk down to [address] then [place] to [place] (3/4 mile) but now they typically drive down and just walk the 3/[address] back. Prior Treatments and Tests PT and injections with good injections Treatment Goals Patient/Caregiver Goals be able to walk further without back fatigue, be able to walk down gravel hill to trail PT-OP-C Subjective Start: 09/04/20 12:57 Freq: Status: Active Protocol: Document 01/22/21 10:18 [facility] (Rec: 01/22/21 10:27 [facility] [id number]) OP-PT Subjective Patient Comments Patient Comments reprots got MRI and pain MD thinks sugery is best option. is on prednisone now and will be getting an injection PT-OP-D Balance Start: 09/04/20 12:57 Freq: Status: Active Protocol: Document 09/04/20 14:36 [facility] (Rec: 09/04/20 15:20 [facility] [id number]) Balance Tests Waggoner Balance Test Waggoner Balance Test Score 49 Single Limb Standing Single Limb- Right unable Single Limb- Left 2 sec w/UE movement PT-OP-E Functional Tests Start: 09/04/20 12:57 Freq: Status: Active Protocol: Document 12/25/20 15:22 [facility] (Rec: 12/25/20 17:56 [facility] [id number]) Functional Tests 30 Second Sit to Stand Test Score 7 Five Times Sit to Stand Test Score 23 sec PT-OP-F Manual Assessment Start: 09/04/20 12:57 Freq: Status: Active Protocol: Document 09/04/20 14:36 [facility] (Rec: 09/04/20 15:20 [facility] [id number]) Manual Assessments Soft Tissue Assessment Soft Tissue Mobility Assessment tightness in QL & R glute PT-OP-G Mobility & Gait Start: 09/04/20 12:57 Freq: Status: Active Protocol: Document 09/04/20 14:36 [facility] (Rec: 09/04/20 15:20 [facility] [id number]) OP Gait Assessment Comments Gait Comments Dec push off and very rigid upper body and trunk PT-OP-J Posture/Palpation/Skin Start: 09/04/20 12:57 Freq: Status: Active Protocol: Document 09/04/20 14:36 [facility] (Rec: 09/04/20 15:20 [facility] [id number]) Posture Evaluation Augusto Postural Classification System Vertebral Compression Test 2 Elbow Flexion Test 1 Lumbar Protective Mechanism Left AP 1 Lumbar Protective Mechanism Right AP 0 Lumbar Protective Mechanism Left PA 1 Lumbar Protective Mechanism Right PA 1 Comments Posture Comments R plevic shear, fwd flex at hips & inc kyphossis PT-OP-K Range of Motion Start: 09/04/20 12:57 Freq: Status: Active Protocol: Document 09/04/20 14:36 [facility] (Rec: 09/04/20 15:20 [facility] [id number]) Lumbar Spine Range of Motion Lumbar Spine Active Degrees Flexion 29 Extension 5 Rotation Left 40 Rotation Right 43 Lateral Flexion Left 10 Lateral Flexion Right 8 Comments pain w/R and SB R PT-OP-L Special Tests Start: 09/04/20 12:57 Freq: Status: Active Protocol: Document 09/04/20 14:36 [facility] (Rec: 09/04/20 15:20 [facility] [id number]) Special Tests Lumbar Spine Special Tests Juan Test Results tightness signficant B hip flexors Slump Test Results neg B Straight Leg Raise Test Results L 38, R 36 tightness in ACEVEDO PT-OP-M Strength Start: 09/04/20 12:57 Freq: Status: Active Protocol: Document 12/25/20 15:22 [facility] (Rec: 12/25/20 17:56 [facility] [id number]) Hip Strength Hip Manual Muscle Testing Left Flexion (L2) 4- Good- Extension (S1) 4- Good- Abduction 4- Good- External Rotation 4 Good Internal Rotation 4 Good Right Flexion (L2) 3+ Fair+ Extension (S1) 3+ Fair+ Abduction 4- Good- External Rotation 3 Fair Internal Rotation 4- Good- Comments discomfort R hip Knee Strength Knee Manual Muscle Testing Right Flexion (S2) 4 Good Extension (L3) 4- Good- Left Flexion (S2) 4 Good Extension (L3) 5 Normal Ankle/Foot Strength Ankle and Foot Manual Muscle Testing Right Dorsiflexion (L4) 5 Normal Plantarflexion (S1) 4- Good- Comments 10 heel raises Left Dorsiflexion (L4) 5 Normal Comments unable to heel raise PT-OP-Q Treatments Start: 09/04/20 12:57 Freq: Status: Active Protocol: Document 01/22/21 10:18 [facility] (Rec: 01/22/21 10:27 [facility] [id number]) Manual Therapy Treatment Soft Tissue Mobilization 4 Body Location along iliac crest R & glutes Mobilization Type Rolling,Sustained Pressure Intensity/Depth Moderate Body Position Sidelying Joint Mobilizations 3 Joint sacrum Direction L caudal & R UPA FM 2 Joint innominate L cadual & R ER & abd FM 1 Joint hip R Direction abd FM & ER FM Self-Care/Home Management Treatment Education Other Education edu on what words meant from MRI after MD already has gone [facility] with it with them. Edu to cont to work on posture and exercises. Stop exercises if cause pain. added prone ER/ IR w/o hip lift, edu to schedule injection and recommneded to follow pain MD recommendationa nd at least see ortho after injection and to discuss MRI and surgery results w/neurloglist PT-OP-R Modalities Start: 09/04/20 12:57 Freq: Status: Active Protocol: Document 11/07/20 08:22 [facility] (Rec: 11/07/20 09:02 [facility] [id number]) Hot Pack/Cold Pack Treatment Cold Pack Location LS Patient Position Hooklying Treatment Duration (minutes) 10 PT-OP-T Assessment and Plan Start: 09/04/20 12:57 Freq: Status: Active Protocol: Document 01/22/21 10:18 [facility] (Rec: 01/22/21 10:27 [facility] [id number]) Physical Therapy Assessment Goals Four Impairment strength Short Term Goal (STG) Pt will be indep w/HEP STG Duration achieved Intermediate Goal (LTG) Pt will score at least 3/5 on LPM and have at least 4/5 LE MMT for B hips to improve stability in order to allow him to do his typical activities without inc pain. 10/15-improving 12/19-worse d/t no PT LTG Duration 01/25/21 Three Impairment walking Short Term Goal (STG) Pt will be able to go for short walks w/o inc pain STG Duration achieved Intermediate Goal (LTG) Pt will be able to do his typical walk down the hill to the trail and back home without inc pain more than 2 points. 10/15-discomfort after current walks 12/25-pt walking shorter walks d/t pain LTG Duration 01/25/21 Two Impairment pain Intermediate Goal (LTG) Pt will report no constant pain and only intermittent R hip and back pain that he is able to self manage. 10/15-still 2-3/10 general discomfort LTG Duration 01/25/21 One Impairment balance Outsole Molder Goal (LTG) Pt will be able to score at least 25/30 on FGA to show dec risk for falls. 10/15-11/18-20 LTG Duration 02/22/21 Assessment Summary Assessment Pt had significantly improved posture after manual treatment and did respond well to mobilizations. Encouaged to drink water and ice at home. Pt and present for appt and verbalized understanding w /edu. He is DC at this time d/ t plateau in progress and insurance limitations. He is following up w/further medical evaluation to help w/pain and limited mobility. Physical Therapy Plan Discharge Physical Therapy Discharge Reasons Plateau in Progress Discharge Comments insurance limitations
== END 2021-01-22 13:06 | disposition home or self-care (01) ==
LOC: PHYS 09:45
PROVIDERS: Family Provider Internal Medicine; PCP Internal Medicine; Referring Provider Physical Medicine & Rehabilitation; Visit Provider Physical Medicine & Rehabilitation
DX: M54.5 Low back pain (principal); R53.1 Weakness; R29.3 Abnormal posture; R26.89 Other abnormalities of gait and mobility; R26.2 Difficulty in walking, not elsewhere classified
CPT/HCPCS: 97010; 97110; 97112; 97116; 97140; 97162; 97535

== ENCOUNTER → 2021-06-25 07:27 | Outpatient (CLI) | payer OTHER, SELFPAY ==
[2021-06-25 09:27] LABS: Add Manual Diff / Slide Review NO; Basophils Absolute Auto 100 /uL (0-100); Eosinophils Absolute Auto 100 /uL (0-450); Eosinophils Percent Auto 1.8 % (2-4); Hematocrit 44.3 % (41-53); Hemoglobin 15.1 g/dL (13.5-17.5); Lymphocytes Absolute Auto 1000 /uL (1100-4500); Lymphocytes Percent Auto 23.1 % (25-40); Mean Corpuscular HGB Conc 34.2 % (30-36); Mean Corpuscular Hemoglobin 33.9 PG (26-34); Mean Corpuscular Volume 99.2 fL (80-100); Monocytes Absolute Auto 400 /uL (0-900); Monocytes Percent Auto 9.8 % (3-14); Neutrophils Absolute Auto 2800 /uL (1500-7000); Neutrophils Percent Auto 63.3 % (50-75); Platelet Count 201 X10^3/uL (150-400); Red Blood Cell Count 4.46 X10^6/uL (4.5-5.9); White Blood Cell Count 4.4 X10^3/uL (4.5-11.0)
[2021-06-25 09:35] LABS: Alanine Aminotransferase 17 IU/L (<50); Albumin 4.3 g/dL (3.5-5.0); Albumin Globulin Ratio 1.6 (1.0-2.8); Alkaline Phosphatase 64 U/L (38-126); Aspartate Aminotransferase 27 IU/L (17-59); BUN Creatinine Ratio 19.2 (6-22); Bilirubin Total 1.4 mg/dL (0.2-1.3); Blood Urea Nitrogen 15 mg/dL (9-20); Calcium 9.5 mg/dL (8.4-10.2); Carbon Dioxide 32 mmol/L (22-32); Chloride 101 mmol/L (98-107); Cholesterol 181 mg/dL (140-199); Estimated Glomerular Filt Rate > 60.0 mL/min (>60); Globulin 2.7 g/dL (1.7-4.1); Glucose 107 mg/dL (80-110); HDL Cholesterol 49 mg/dL (40-60); HEMOLYSIS < 15 (0-50); LDL Cholesterol Calculated 117 mg/dL (<100); Potassium 4.1 mmol/L (3.4-5.1); Sodium 138 mmol/L (137-145); Triglycerides 73 mg/dL (35-150)
[2021-06-25 10:25] LABS: Vitamin B12 393 pg/mL (239-931)
== END ==
PROVIDERS: Family Provider Family Medicine; PCP Family Medicine; Referring Provider Family Medicine; Visit Provider Family Medicine
DX: R53.83 Other fatigue (principal); I48.20 Chronic atrial fibrillation, unspecified; Z12.5 Encounter for screening for malignant neoplasm of prostate; R79.89 Other specified abnormal findings of blood chemistry; R41.89 Other symptoms and signs involving cognitive functions and awareness
CPT/HCPCS: 36415; 80053; 80061; 82607; 85025; G0103

== ENCOUNTER 2021-10-13 11:00 | Outpatient (RCR) | payer OTHER, SELFPAY ==
--- NOTE | 2021-06-25 16:15 | PT.OIE ---
Current Diagnoses Mild cognitive impairment, so stated (06/25/21) Spinal stenosis, lumbar region without neurogenic claudication (06/25/21) Difficulty in walking, not elsewhere classified (06/25/21) Other abnormalities of gait and mobility (06/25/21) Abnormal posture (06/25/21) Weakness (06/25/21) Past Medical History (Last Updated 06/19/21 @ 15:10 by Stewart Rai DO) Atrial fibrillation Central stenosis of spinal canal Cervical somatic dysfunction Cognitive decline Concussion Cranial somatic dysfunction Dizziness Fall (on) (from) other stairs and steps, sequela Fatigue (~11/23/19) Foot joint stiffness, bilateral Heart disease History of right hip replacement Hx of Achilles tendon repair Hx of umbilical hernia repair Low back pain 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 Lumbar foraminal stenosis Lumbar region somatic dysfunction Obstructive sleep apnea of adult Pelvic somatic dysfunction Sacral region somatic dysfunction Screening for prostate cancer Segmental and somatic dysfunction of abdomen and other regions Segmental and somatic dysfunction of rib cage Somatic dysfunction of lower extremity Squamous cell carcinoma, leg Stiff neck Thoracic region somatic dysfunction Past Surgical History (Last Updated 01/15/21 @ 15:48 by Stewart Rai DO) History of right hip replacement Hx of Achilles tendon repair Hx of umbilical hernia repair Visit Care Team Role Provider Type Stewart Rai DO Family Provider Physician Primary Care Provider Specialty: Family Practice Address: [address] [place] [address], [id number] Email: DAYSI Arguello Attending Provider Non-Staff Referring Provider Specialty: Medical Address: [address] [place] [address], [id number] Email: Physical Therapy Initial Evaluation PT-OP-A Visit Information Start: 06/24/21 07:50 Freq: Status: Active Protocol: Document 06/25/21 13:44 [facility] (Rec: 06/25/21 14:36 [facility] [id number]) Out-Patient Physical Therapy Visit Information Visit Information Visit Type Initial Evaluation Visit Start Time 13:46 Visit Stop Time 14:30 Total Visit Minutes 44 Visit Number 1/6 Number of DRY HOUSE ATTENDANT Visits 0 PT-OP-B Current Condition Start: 06/24/21 07:50 Freq: Status: Active Protocol: Document 06/25/21 13:44 [facility] (Rec: 06/25/21 14:36 [facility] [id number]) Current Condition History of Current Condition Onset Date chronic w/worsened steadiness Current Complaints dec steadiness, LBP History of Current Condition reports pt and her along w/MD was concerned re: steadiness. He has an saba on Elecar taht says his seatdiness is low to very low. Recommendation was initially surgery for his LB but neurosurgeon said he wasn't a canidate for surgery. Surgeon recommended anti-inflammatory meds for flare ups. Dr. Rai recommended an anti- inflammatory diet and he has lost 22 lbs. He takes 1/2 a benadryl at 3 am when he wakes up and that helps. In Dec, his pain was so severe w/ cramps that his would have to put hot moist towels on legs. Pt has been manipulated by DO and that has helped a lot. His walking is more hunched over. He has LBP that gets worse w/bending & w/ lifting and daily activities. Pt can walk about 4 blocks ( to mailbox and 1 more further and back)but if he walks further than that it really drains him to fatigue and walk starts to look unsteady. Lifting laundry inc pain and helping around the house. When he was doing his exercises and doing legs side to side and his legs were shaking a lot and his DO was happy with this. Prior Treatments and Tests PT in past and DO treatment w/ good results MRI report:IMPRESSION: Multilevel degenerative disc disease and arthropathy resulting in varying degrees of central and foraminal stenosis stable from the prior exam, including severe L3-4 and moderate L2-3 central stenosis . Treatment Goals Patient/Caregiver Goals improve balance, improve gait pattern, improve posture, dec cane use, improve ability to walk further to be able to travel, improve back pain PT-OP-C Subjective Start: 06/24/21 07:50 Freq: Status: Active Protocol: Document 06/25/21 13:44 [facility] (Rec: 06/25/21 14:36 [facility] [id number]) OP-PT Pain Assessment Location LBP Pain Location Details lumbar Scale Used 1/10 rest, worst-has to lay down Frequency Daily Radiating Location R hip Pain Aggravating Factors Walking,Lifting Pain Alleviating Factors Cold,Lying Supine,Exercise PT-OP-D Balance Start: 06/24/21 07:50 Freq: Status: Active Protocol: Document 06/25/21 13:44 [facility] ([facility]21 [id number] Balance Tests Single Limb Standing Single Limb- Right 1 sec Single Limb- Left 2 sec PT-OP-E Functional Tests Start: 06/24/21 07:50 Freq: Status: Active Protocol: Document 06/25/21 13:44 [facility] (Rec: 06/25/21 14:36 [facility] [id number]) Functional Tests 6 Minute Walk Test Distance 1016ft Device Used none Comments ended fwd flexed, by half way started dec stance time on RLE 30 Second Sit to Stand Test Score 7 Five Times Sit to Stand Test Score 21sec PT-OP-F Manual Assessment Start: 06/24/21 07:50 Freq: Status: Active Protocol: Document 06/25/21 13:44 [facility] (Rec: 06/25/21 14:36 [facility] [id number]) Manual Assessments Soft Tissue Assessment Soft Tissue Mobility Assessment tightness in QL & ES PT-OP-G Mobility & Gait Start: 06/24/21 07:50 Freq: Status: Active Protocol: Document 06/25/21 13:44 [facility] (Rec: 06/26/21 10:21 [facility] [id number]) OP Gait Assessment Comments Gait Comments pt amb fwd flexed and with inc time walking, has dec stance time on RLE, dec push off B and does do lat leaning B w/WB PT-OP-J Posture/Palpation/Skin Start: 06/24/21 07:50 Freq: Status: Active Protocol: Document 06/25/21 13:44 [facility] (Rec: 06/25/21 14:36 [facility] [id number]) Posture Evaluation Comments Posture Comments fwd flex trunk, inc kyphosis, fwd head PT-OP-M Strength Start: 06/24/21 07:50 Freq: Status: Active Protocol: Document 06/25/21 13:44 [facility] (Rec: 06/25/21 14:36 [facility] [id number]) Hip Strength Hip Manual Muscle Testing Right Flexion (L2) 4- Good- Extension (S1) 3 Fair Abduction 3 Fair Adduction 3 Fair External Rotation 3 Fair Internal Rotation 4- Good- Left Flexion (L2) 4 Good Extension (S1) 3 Fair Abduction 3 Fair Adduction 3 Fair External Rotation 4- Good- Internal Rotation 4- Good- Knee Strength Knee Manual Muscle Testing Right Flexion (S2) 4- Good- Extension (L3) 4 Good Left Flexion (S2) 4- Good- Extension (L3) 4 Good Ankle/Foot Strength Ankle and Foot Manual Muscle Testing Right Dorsiflexion (L4) 4 Good Plantarflexion (S1) 4 Good Left Dorsiflexion (L4) 4+ Good+ Plantarflexion (S1) 4+ Good+ Comments PF tested seated PT-OP-T Assessment and Plan Start: 06/24/21 07:50 Freq: Status: Active Protocol: Document 06/25/21 13:44 [facility] (Rec: 06/25/21 14:36 [facility] [id number]) Physical Therapy Assessment Rehab Potential Rehabilitation Potential Good Evaluation Complexity Number of Personal Factors/Comorbidities 3 or More Number of Body Systems Impaired 4 or More Clinical Presentation at Evaluation Evolving Impairments Impairments Activity Tolerance,Balance, Functional Activities, Functional Mobility,Gait,Pain, Posture,ROM,Soft Tissue Mobility,Strength Goals walking Impairment 1017 back fatigue at 2.5 min starting and starting w/dec R stance time & lat lean Short Term Goal (STG) Pt will improve 6 min walk distance to at least 1300ft to show improved activity tolerance w/no more than minor back fatigue noted until the end. STG Duration 07/24/21 Financial Sales Professional Goal (LTG) Pt will be able to walk 1/2 mile without back fatigue or body fatigue safely w/ w/o LOB or need to lay down after . LTG Duration 09/22/21 strength Short Term Goal (STG) Pt will be indep w/HEP STG Duration 08/06/21 Financial Sales Professional Goal (LTG) Pt will improve LE strength to at least 4+/5 in all planes to show improved hip and LE staiblity in order to allow pt to help w/household tasks w/o significant fatigue and/or pain. LTG Duration 09/22/21 sit to stands Impairment 7 sit to stands for 30 sec; 5x sit to stand 21 sec Short Term Goal (STG) Pt will improve 5x sit to stand to with in 13 sec to improve funtional ability. Financial Sales Professional Goal (LTG) Pt will score at least 11 sit to stands in 30 sec to show dec fall risk and improved strength. LTG Duration 09/22/21 balance Short Term Goal (STG) Pt will be able to do SLS 5 sec B STG Duration 08/23/21 Penitentiary Goal (LTG) Pt will score at least 25/30 on FGA and 22/24 on DGI to show low fall risk. LTG Duration 09/22 Assessment Summary Assessment Pt presents w/recent complaints of unsteadiness that has been noted by multiple doctors, his and his apple watch shows dec steadiness when walking. He has been unable to walk any distance d/t weakness, fatigue and back pain. LBP and R hip pain have been a chronic issue and recently it sounds like it may be worsening in past couple months per 's concerns about pt mobilty. He is not good with the subjective scale likely d/t declining cognition as he will say the worst it gets is a 2/ 10 but he will say he has to lay down because he can't walk anymore. notes, he will also push into thighs bent over when he starts to fatigue . She is concerned re:his posture and that he seems to be bending fwd more. He showed dec balacne w/ SLS and showed abnormality of gait when amb for 6 min walk. DGI will be performed next session for dynamic balance assessment. Pt would benefit from skilled PT to work on addressing balance deficits, dec strength , impaired gait,a nd back pain w/mobility. Physical Therapy Plan Frequency and Duration Frequency of Treatment 1-2x/week Duration of Treatment 3 months Plan of Care Start Date 06/25/21 Plan of Care End Date 09/22/21 Therapeutic Interventions Therapeutic Interventions Aquatic Therapy,Balance Training,Gait Training,Home Exercise Program,Joint Mobilizations,Manual Therapy, Neuromuscular Re-education, Patient/Caregiver Education, Self-Care/Home Management,Soft Tissue Mobilization,Taping, Therapeutic Activities, Therapeutic Exercises Modalities Cold Pack/Ice Massage,Electric Stimulation,Hot Packs, Infrared Therapy,Ultrasound Next Visit Focus/Plan Next Note Type Treatment Note Next Visit Plan review old exercises, start balance exercises including unstable surfaces, DGI, FGA
--- NOTE | 2021-06-25 17:15 | PT.OPPOC ---
Physical, Occupational & Speech Therapy At [facility] Current Diagnoses Mild cognitive impairment, so stated (06/25/21) Spinal stenosis, lumbar region without neurogenic claudication (06/25/21) Difficulty in walking, not elsewhere classified (06/25/21) Other abnormalities of gait and mobility (06/25/21) Abnormal posture (06/25/21) Weakness (06/25/21) Visit Care Team Role Provider Type Stewart Rai DO Family Provider Physician Primary Care Provider Specialty: Family Practice Address: [address] [place] [address], [facility] Email: DAYSI Arguello Attending Provider Non-Staff Referring Provider Specialty: Medical Address: [address] [place] [address], [facility] Email: Plan Of Care PT-OP-T Assessment and Plan Start: 06/24/21 07:50 Freq: Status: Active Protocol: Document 06/25/21 13:44 [facility] (Rec: 06/25/21 14:36 [facility] [id number]) Physical Therapy Assessment Rehab Potential Rehabilitation Potential Good Evaluation Complexity Number of Personal Factors/Comorbidities 3 or More Number of Body Systems Impaired 4 or More Clinical Presentation at Evaluation Evolving Impairments Impairments Activity Tolerance,Balance, Functional Activities, Functional Mobility,Gait,Pain, Posture,ROM,Soft Tissue Mobility,Strength Goals walking Impairment 1017 back fatigue at 2.5 min starting and starting w/dec R stance time & lat lean Short Term Goal (STG) Pt will improve 6 min walk distance to at least 1300ft to show improved activity tolerance w/no more than minor back fatigue noted until the end. STG Duration 07/24/21 Retail Assistant Store Manager Goal (LTG) Pt will be able to walk 1/2 mile without back fatigue or body fatigue safely w/ w/o LOB or need to lay down after . LTG Duration 09/22/21 strength Short Term Goal (STG) Pt will be indep w/HEP STG Duration 08/06/21 Detention Goal (LTG) Pt will improve LE strength to at least 4+/5 in all planes to show improved hip and LE staiblity in order to allow pt to help w/household tasks w/o significant fatigue and/or pain. LTG Duration 09/22/21 sit to stands Impairment 7 sit to stands for 30 sec; 5x sit to stand 21 sec Short Term Goal (STG) Pt will improve 5x sit to stand to with in 13 sec to improve funtional ability. Detention Goal (LTG) Pt will score at least 11 sit to stands in 30 sec to show dec fall risk and improved strength. LTG Duration 09/22/21 balance Short Term Goal (STG) Pt will be able to do SLS 5 sec B STG Duration 08/23/21 Detention Goal (LTG) Pt will score at least 25/30 on FGA and 22/24 on DGI to show low fall risk. LTG Duration 09/22 Assessment Summary Assessment Pt presents w/recent complaints of unsteadiness that has been noted by multiple doctors, his and his apple watch shows dec steadiness when walking. He has been unable to walk any distance d/t weakness, fatigue and back pain. LBP and R hip pain have been a chronic issue and recently it sounds like it may be worsening in past couple months per 's concerns about pt mobilty. He is not good with the subjective scale likely d/t declining cognition as he will say the worst it gets is a 2/ 10 but he will say he has to lay down because he can't walk anymore. notes, he will also push into thighs bent over when he starts to fatigue . She is concerned re:his posture and that he seems to be bending fwd more. He showed dec balacne w/ SLS and showed abnormality of gait when amb for 6 min walk. DGI will be performed next session for dynamic balance assessment. Pt would benefit from skilled PT to work on addressing balance deficits, dec strength , impaired gait,a nd back pain w/mobility. Physical Therapy Plan Frequency and Duration Frequency of Treatment 1-2x/week Duration of Treatment 3 months Plan of Care Start Date 06/25/21 Plan of Care End Date 09/22/21 Therapeutic Interventions Therapeutic Interventions Aquatic Therapy,Balance Training,Gait Training,Home Exercise Program,Joint Mobilizations,Manual Therapy, Neuromuscular Re-education, Patient/Caregiver Education, Self-Care/Home Management,Soft Tissue Mobilization,Taping, Therapeutic Activities, Therapeutic Exercises Modalities Cold Pack/Ice Massage,Electric Stimulation,Hot Packs, Infrared Therapy,Ultrasound Next Visit Focus/Plan Next Note Type Treatment Note Next Visit Plan review old exercises, start balance exercises including unstable surfaces, DGI, FGA Plan of Care Dates Plan of Care Start Date 06/25/21 Plan of Care End Date 09/22/21 Electronically Signed by: Reina Rider, PT 06/26/21 1600 Please Sign and Return: I have reviewed this Plan of Care and certify that the skilled therapy services above are required to meet the patient?s needs. Physician Signature Date Printed Name and Credentials Clinical Instructor Signature Printed Name and Credentials
--- NOTE | 2021-06-26 12:15 | PT.OIE ---
Current Diagnoses Mild cognitive impairment, so stated (06/25/21) Spinal stenosis, lumbar region without neurogenic claudication (06/25/21) Difficulty in walking, not elsewhere classified (06/25/21) Other abnormalities of gait and mobility (06/25/21) Abnormal posture (06/25/21) Weakness (06/25/21) Past Medical History (Last Updated 06/19/21 @ 15:10 by Stewart Rai DO) Atrial fibrillation Central stenosis of spinal canal Cervical somatic dysfunction Cognitive decline Concussion Cranial somatic dysfunction Dizziness Fall (on) (from) other stairs and steps, sequela Fatigue (~11/23/19) Foot joint stiffness, bilateral Heart disease History of right hip replacement Hx of Achilles tendon repair Hx of umbilical hernia repair Low back pain 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 Lumbar foraminal stenosis Lumbar region somatic dysfunction Obstructive sleep apnea of adult Pelvic somatic dysfunction Sacral region somatic dysfunction Screening for prostate cancer Segmental and somatic dysfunction of abdomen and other regions Segmental and somatic dysfunction of rib cage Somatic dysfunction of lower extremity Squamous cell carcinoma, leg Stiff neck Thoracic region somatic dysfunction Past Surgical History (Last Updated 01/15/21 @ 15:48 by Stewart Rai DO) History of right hip replacement Hx of Achilles tendon repair Hx of umbilical hernia repair Visit Care Team Role Provider Type Stewart Rai DO Family Provider Physician Primary Care Provider Specialty: Family Practice Address: [address] [place] [address], [id number] Email: DAYSI Arguello Attending Provider Non-Staff Referring Provider Specialty: Medical Address: [address] [place] [address], [phone] Email: Physical Therapy Initial Evaluation PT-OP-A Visit Information Start: 06/24/21 07:50 Freq: Status: Active Protocol: Document 06/25/21 13:44 [facility] (Rec: 06/25/21 14:36 [facility] [id number]) Out-Patient Physical Therapy Visit Information Visit Information Visit Type Initial Evaluation Visit Start Time 13:46 Visit Stop Time 14:30 Total Visit Minutes 44 Visit Number 1/6 Number of UPPER EXTREMITY SURGEON Visits 0 PT-OP-B Current Condition Start: 06/24/21 07:50 Freq: Status: Active Protocol: Document 06/25/21 13:44 [facility] (Rec: 06/25/21 14:36 [facility] [id number]) Current Condition History of Current Condition Onset Date chronic w/worsened steadiness Current Complaints dec steadiness, LBP History of Current Condition reports pt and her along w/MD was concerned re: steadiness. He has an saba on [employer] taht says his seatdiness is low to very low. Recommendation was initially surgery for his LB but neurosurgeon said he wasn't a canidate for surgery. Surgeon recommended anti-inflammatory meds for flare ups. Dr. Rai recommended an anti- inflammatory diet and he has lost 22 lbs. He takes 1/2 a benadryl at 3 am when he wakes up and that helps. In Dec, his pain was so severe w/ cramps that his would have to put hot moist towels on legs. Pt has been manipulated by DO and that has helped a lot. His walking is more hunched over. He has LBP that gets worse w/bending & w/ lifting and daily activities. Pt can walk about 4 blocks ( to mailbox and 1 more further and back)but if he walks further than that it really drains him to fatigue and walk starts to look unsteady. Lifting laundry inc pain and helping around the house. When he was doing his exercises and doing legs side to side and his legs were shaking a lot and his DO was happy with this. Prior Treatments and Tests PT in past and DO treatment w/ good results MRI report:IMPRESSION: Multilevel degenerative disc disease and arthropathy resulting in varying degrees of central and foraminal stenosis stable from the prior exam, including severe L3-4 and moderate L2-3 central stenosis . Treatment Goals Patient/Caregiver Goals improve balance, improve gait pattern, improve posture, dec cane use, improve ability to walk further to be able to travel, improve back pain PT-OP-C Subjective Start: 06/24/21 07:50 Freq: Status: Active Protocol: Document 06/25/21 13:44 [facility] (Rec: 06/25/21 14:36 [facility] [id number]) OP-PT Pain Assessment Location LBP Pain Location Details lumbar Scale Used 1/10 rest, worst-has to lay down Frequency Daily Radiating Location R hip Pain Aggravating Factors Walking,Lifting Pain Alleviating Factors Cold,Lying Supine,Exercise PT-OP-D Balance Start: 06/24/21 07:50 Freq: Status: Active Protocol: Document 06/25/21 13:44 [facility] (Rec: 06/26/21 10:21 [id number] Balance Tests Single Limb Standing Single Limb- Right 1 sec Single Limb- Left 2 sec PT-OP-E Functional Tests Start: 06/24/21 07:50 Freq: Status: Active Protocol: Document 06/25/21 13:44 [facility] (Rec: 06/25/21 14:36 [facility] [id number]) Functional Tests 6 Minute Walk Test Distance 1016ft Device Used none Comments ended fwd flexed, by half way started dec stance time on RLE 30 Second Sit to Stand Test Score 7 Five Times Sit to Stand Test Score 21sec PT-OP-F Manual Assessment Start: 06/24/21 07:50 Freq: Status: Active Protocol: Document 06/25/21 13:44 [facility] (Rec: 06/25/21 14:36 [facility] [id number]) Manual Assessments Soft Tissue Assessment Soft Tissue Mobility Assessment tightness in QL & ES PT-OP-G Mobility & Gait Start: 06/24/21 07:50 Freq: Status: Active Protocol: Document 06/25/21 13:44 [facility] (Rec: 06/26/21 10:21 [facility] [id number]) OP Gait Assessment Comments Gait Comments pt amb fwd flexed and with inc time walking, has dec stance time on RLE, dec push off B and does do lat leaning B w/WB PT-OP-J Posture/Palpation/Skin Start: 06/24/21 07:50 Freq: Status: Active Protocol: Document 06/25/21 13:44 [facility] (Rec: 06/25/21 14:36 [facility] [id number]) Posture Evaluation Comments Posture Comments fwd flex trunk, inc kyphosis, fwd head PT-OP-M Strength Start: 06/24/21 07:50 Freq: Status: Active Protocol: Document 06/25/21 13:44 [facility] (Rec: 06/25/21 14:36 [facility] [id number]) Hip Strength Hip Manual Muscle Testing Right Flexion (L2) 4- Good- Extension (S1) 3 Fair Abduction 3 Fair Adduction 3 Fair External Rotation 3 Fair Internal Rotation 4- Good- Left Flexion (L2) 4 Good Extension (S1) 3 Fair Abduction 3 Fair Adduction 3 Fair External Rotation 4- Good- Internal Rotation 4- Good- Knee Strength Knee Manual Muscle Testing Right Flexion (S2) 4- Good- Extension (L3) 4 Good Left Flexion (S2) 4- Good- Extension (L3) 4 Good Ankle/Foot Strength Ankle and Foot Manual Muscle Testing Right Dorsiflexion (L4) 4 Good Plantarflexion (S1) 4 Good Left Dorsiflexion (L4) 4+ Good+ Plantarflexion (S1) 4+ Good+ Comments PF tested seated PT-OP-T Assessment and Plan Start: 06/24/21 07:50 Freq: Status: Active Protocol: Document 06/25/21 13:44 [facility] (Rec: 06/25/21 14:36 [facility] [id number]) Physical Therapy Assessment Rehab Potential Rehabilitation Potential Good Evaluation Complexity Number of Personal Factors/Comorbidities 3 or More Number of Body Systems Impaired 4 or More Clinical Presentation at Evaluation Evolving Impairments Impairments Activity Tolerance,Balance, Functional Activities, Functional Mobility,Gait,Pain, Posture,ROM,Soft Tissue Mobility,Strength Goals walking Impairment 1017 back fatigue at 2.5 min starting and starting w/dec R stance time & lat lean Short Term Goal (STG) Pt will improve 6 min walk distance to at least 1300ft to show improved activity tolerance w/no more than minor back fatigue noted until the end. STG Duration 07/24/21 [employer] Goal (LTG) Pt will be able to walk 1/2 mile without back fatigue or body fatigue safely w/ w/o LOB or need to lay down after . LTG Duration 09/22/21 strength Short Term Goal (STG) Pt will be indep w/HEP STG Duration 08/06/21 [employer] Goal (LTG) Pt will improve LE strength to at least 4+/5 in all planes to show improved hip and LE staiblity in order to allow pt to help w/household tasks w/o significant fatigue and/or pain. LTG Duration 09/22/21 sit to stands Impairment 7 sit to stands for 30 sec; 5x sit to stand 21 sec Short Term Goal (STG) Pt will improve 5x sit to stand to with in 13 sec to improve funtional ability. [employer] Goal (LTG) Pt will score at least 11 sit to stands in 30 sec to show dec fall risk and improved strength. LTG Duration 09/22/21 balance Short Term Goal (STG) Pt will be able to do SLS 5 sec B STG Duration 08/23/21 Correction Goal (LTG) Pt will score at least 25/30 on FGA and 22/24 on DGI to show low fall risk. LTG Duration 09/22 Assessment Summary Assessment Pt presents w/recent complaints of unsteadiness that has been noted by multiple doctors, his and his apple watch shows dec steadiness when walking. He has been unable to walk any distance d/t weakness, fatigue and back pain. LBP and R hip pain have been a chronic issue and recently it sounds like it may be worsening in past couple months per 's concerns about pt mobilty. He is not good with the subjective scale likely d/t declining cognition as he will say the worst it gets is a 2/ 10 but he will say he has to lay down because he can't walk anymore. notes, he will also push into thighs bent over when he starts to fatigue . She is concerned re:his posture and that he seems to be bending fwd more. He showed dec balacne w/ SLS and showed abnormality of gait when amb for 6 min walk. DGI will be performed next session for dynamic balance assessment. Pt would benefit from skilled PT to work on addressing balance deficits, dec strength , impaired gait,a nd back pain w/mobility. Physical Therapy Plan Frequency and Duration Frequency of Treatment 1-2x/week Duration of Treatment 3 months Plan of Care Start Date 06/25/21 Plan of Care End Date 09/22/21 Therapeutic Interventions Therapeutic Interventions Aquatic Therapy,Balance Training,Gait Training,Home Exercise Program,Joint Mobilizations,Manual Therapy, Neuromuscular Re-education, Patient/Caregiver Education, Self-Care/Home Management,Soft Tissue Mobilization,Taping, Therapeutic Activities, Therapeutic Exercises Modalities Cold Pack/Ice Massage,Electric Stimulation,Hot Packs, Infrared Therapy,Ultrasound Next Visit Focus/Plan Next Note Type Treatment Note Next Visit Plan review old exercises, start balance exercises including unstable surfaces, DGI, FGA
--- NOTE | 2021-07-02 14:33 | PT.OTN ---
Current Diagnoses Mild cognitive impairment, so stated (07/02/21) Spinal stenosis, lumbar region without neurogenic claudication (07/02/21) Difficulty in walking, not elsewhere classified (07/02/21) Other abnormalities of gait and mobility (07/02/21) Abnormal posture (07/02/21) Weakness (07/02/21) Physical Therapy Treatment Note PT-OP-A Visit Information Start: 06/24/21 07:50 Freq: Status: Active Protocol: Document 07/02/21 12:10 [facility] (Rec: 07/02/21 14:33 [facility] [id number]) Out-Patient Physical Therapy Visit Information Visit Information Visit Type Treatment Note Visit Start Time 13:01 Visit Stop Time 13:44 Total Visit Minutes 43 Visit Number 2/6 Number of WELD ENGINEER Visits 0 PT-OP-B Current Condition Start: 06/24/21 07:50 Freq: Status: Active Protocol: Document 06/25/21 13:44 [facility] (Rec: 06/25/21 14:36 [facility] [id number]) Current Condition History of Current Condition Onset Date chronic w/worsened steadiness Current Complaints dec steadiness, LBP History of Current Condition reports pt and her along w/MD was concerned re: steadiness. He has an saba on [employer] taht says his seatdiness is low to very low. Recommendation was initially surgery for his LB but neurosurgeon said he wasn't a canidate for surgery. Surgeon recommended anti-inflammatory meds for flare ups. Dr. Rai recommended an anti- inflammatory diet and he has lost 22 lbs. He takes 1/2 a benadryl at 3 am when he wakes up and that helps. In Dec, his pain was so severe w/ cramps that his would have to put hot moist towels on legs. Pt has been manipulated by DO and that has helped a lot. His walking is more hunched over. He has LBP that gets worse w/bending & w/ lifting and daily activities. Pt can walk about 4 blocks ( to mailbox and 1 more further and back)but if he walks further than that it really drains him to fatigue and walk starts to look unsteady. Lifting laundry inc pain and helping around the house. When he was doing his exercises and doing legs side to side and his legs were shaking a lot and his DO was happy with this. Prior Treatments and Tests PT in past and DO treatment w/ good results MRI report:IMPRESSION: Multilevel degenerative disc disease and arthropathy resulting in varying degrees of central and foraminal stenosis stable from the prior exam, including severe L3-4 and moderate L2-3 central stenosis . Treatment Goals Patient/Caregiver Goals improve balance, improve gait pattern, improve posture, dec cane use, improve ability to walk further to be able to travel, improve back pain PT-OP-C Subjective Start: 06/24/21 07:50 Freq: Status: Active Protocol: Document 07/02/21 12:10 [facility] (Rec: 07/02/21 14:[id number]-PT Subjective Patient Comments Patient Comments Pt reports he had another MOh' s procedure. Dr. Rai told pt to squeeze his toes d/t them extending which makes balance difficult PT-OP-D Balance Start: 06/24/21 07:50 Freq: Status: Active Protocol: Document 06/25/21 13:44 [facility] (Rec: 06/26/21 10:21 [id number] Balance Tests Single Limb Standing Single Limb- Right 1 sec Single Limb- Left 2 sec PT-OP-E Functional Tests Start: 06/24/21 07:50 Freq: Status: Active Protocol: Document 07/02/21 12:10 [facility] (Rec: 07/02/21 14:33 [id number] Functional Tests Dynamic Gait Index (DGI) Score 20/24 Functional Gait Assessment Score 16/30 PT-OP-F Manual Assessment Start: 06/24/21 07:50 Freq: Status: Active Protocol: Document 06/25/21 13:44 [facility] (Rec: 06/25/21 14:36 [id number] Manual Assessments Soft Tissue Assessment Soft Tissue Mobility Assessment tightness in QL & ES PT-OP-G Mobility & Gait Start: 06/24/21 07:50 Freq: Status: Active Protocol: Document 06/25/21 13:44 [facility] (Rec: 06/26/21 10:21 [id number] OP Gait Assessment Comments Gait Comments pt amb fwd flexed and with inc time walking, has dec stance time on RLE, dec push off B and does do lat leaning B w/WB PT-OP-J Posture/Palpation/Skin Start: 06/24/21 07:50 Freq: Status: Active Protocol: Document 06/25/21 13:44 [facility] (Rec: 06/25/21 14:36 [facility] [id number]) Posture Evaluation Comments Posture Comments fwd flex trunk, inc kyphosis, fwd head PT-OP-M Strength Start: 06/24/21 07:50 Freq: Status: Active Protocol: Document 06/25/21 13:44 [facility] (Rec: 06/25/21 14:36 [facility] [id number]) Hip Strength Hip Manual Muscle Testing Right Flexion (L2) 4- Good- Extension (S1) 3 Fair Abduction 3 Fair Adduction 3 Fair External Rotation 3 Fair Internal Rotation 4- Good- Left Flexion (L2) 4 Good Extension (S1) 3 Fair Abduction 3 Fair Adduction 3 Fair External Rotation 4- Good- Internal Rotation 4- Good- Knee Strength Knee Manual Muscle Testing Right Flexion (S2) 4- Good- Extension (L3) 4 Good Left Flexion (S2) 4- Good- Extension (L3) 4 Good Ankle/Foot Strength Ankle and Foot Manual Muscle Testing Right Dorsiflexion (L4) 4 Good Plantarflexion (S1) 4 Good Left Dorsiflexion (L4) 4+ Good+ Plantarflexion (S1) 4+ Good+ Comments PF tested seated PT-OP-Q Treatments Start: 06/24/21 07:50 Freq: Status: Active Protocol: Document 07/02/21 12:10 [facility] (Rec: 07/02/21 14:33 [facility] [id number]) Gym Equipment Shuttle Balance 1 Details red clips Comments fwd & side : WBOS & NBOS fwd : staggered stance Therapeutic Ball seated Ball Size/Color silver Body Position seated Comments 1. marches alt x15 B 2. kicks alt x15 B 3. bounce for balance x1 min 4. balloon volley w/ for reach out of [place] x2 min Therapeutic Exercises Standing Exercises heel raises Side bilateral Reps/Minutes 20 Neuro Re-Education Treatment Balance Activities 5 Details tandem balance B trials 4 Details toe taps B 16 in step Reps/Duration 15B 2 Details bosu Comments 1. steps ups x5 B w/1 rail 2. balance on top x1 min PT-OP-T Assessment and Plan Start: 06/24/21 07:50 Freq: Status: Active Protocol: Document 07/02/21 12:10 [facility] (Rec: 07/02/21 14:33 [facility] [id number]) Physical Therapy Assessment Goals walking Impairment 1017 back fatigue at 2.5 min starting and starting w/dec R stance time & lat lean Short Term Goal (STG) Pt will improve 6 min walk distance to at least 1300ft to show improved activity tolerance w/no more than minor back fatigue noted until the end. STG Duration 07/24/21 [facility] Goal (LTG) Pt will be able to walk 1/2 mile without back fatigue or body fatigue safely w/ w/o LOB or need to lay down after . LTG Duration 09/22/21 strength Short Term Goal (STG) Pt will be indep w/HEP STG Duration 08/06/21 [facility] Goal (LTG) Pt will improve LE strength to at least 4+/5 in all planes to show improved hip and LE staiblity in order to allow pt to help w/household tasks w/o significant fatigue and/or pain. LTG Duration 09/22/21 sit to stands Impairment 7 sit to stands for 30 sec; 5x sit to stand 21 sec Short Term Goal (STG) Pt will improve 5x sit to stand to with in 13 sec to improve funtional ability. [facility] Goal (LTG) Pt will score at least 11 sit to stands in 30 sec to show dec fall risk and improved strength. LTG Duration 09/22/21 balance Short Term Goal (STG) Pt will be able to do SLS 5 sec B STG Duration 08/23/21 [facility] Goal (LTG) Pt will score at least 25/30 on FGA and 22/24 on DGI to show low fall risk. LTG Duration 09/22 Assessment Summary Assessment Pt did well with exericses with most challenge w/unstable surfaces. Seated on ball was challenging for pt and required cues for posture throughout entire session. Physical Therapy Plan Frequency and Duration Frequency of Treatment 1-2x/week Duration of Treatment 3 months Plan of Care Start Date 06/25/21 Plan of Care End Date 09/22/21 Next Visit Focus/Plan Next Note Type Treatment Note Next Visit Plan review old exercises, hip strength & balance exercises including unstable surfaces
--- NOTE | 2021-07-08 12:11 | PT.OTN ---
Current Diagnoses Mild cognitive impairment, so stated (07/08/21) Spinal stenosis, lumbar region without neurogenic claudication (07/08/21) Difficulty in walking, not elsewhere classified (07/08/21) Other abnormalities of gait and mobility (07/08/21) Abnormal posture (07/08/21) Weakness (07/08/21) Physical Therapy Treatment Note PT-OP-A Visit Information Start: 06/24/21 07:50 Freq: Status: Active Protocol: Document 07/08/21 09:50 [facility] (Rec: 07/08/21 12:11 [facility] [id number]) Out-Patient Physical Therapy Visit Information Visit Information Visit Type Treatment Note Visit Start Time 09:49 Visit Stop Time 10:30 Total Visit Minutes 41 Visit Number 3/6 Number of PROFESSIONAL APPLICATION DESIGNER Visits 0 PT-OP-B Current Condition Start: 06/24/21 07:50 Freq: Status: Active Protocol: Document 06/25/21 13:44 [facility] (Rec: 06/25/21 14:36 [facility] [id number]) Current Condition History of Current Condition Onset Date chronic w/worsened steadiness Current Complaints dec steadiness, LBP History of Current Condition reports pt and her along w/MD was concerned re: steadiness. He has an saba on [employer] taht says his seatdiness is low to very low. Recommendation was initially surgery for his LB but neurosurgeon said he wasn't a canidate for surgery. Surgeon recommended anti-inflammatory meds for flare ups. Dr. Rai recommended an anti- inflammatory diet and he has lost 22 lbs. He takes 1/2 a benadryl at 3 am when he wakes up and that helps. In Dec, his pain was so severe w/ cramps that his would have to put hot moist towels on legs. Pt has been manipulated by DO and that has helped a lot. His walking is more hunched over. He has LBP that gets worse w/bending & w/ lifting and daily activities. Pt can walk about 4 blocks ( to mailbox and 1 more further and back)but if he walks further than that it really drains him to fatigue and walk starts to look unsteady. Lifting laundry inc pain and helping around the house. When he was doing his exercises and doing legs side to side and his legs were shaking a lot and his DO was happy with this. Prior Treatments and Tests PT in past and DO treatment w/ good results MRI report:IMPRESSION: Multilevel degenerative disc disease and arthropathy resulting in varying degrees of central and foraminal stenosis stable from the prior exam, including severe L3-4 and moderate L2-3 central stenosis . Treatment Goals Patient/Caregiver Goals improve balance, improve gait pattern, improve posture, dec cane use, improve ability to walk further to be able to travel, improve back pain PT-OP-C Subjective Start: 06/24/21 07:50 Freq: Status: Active Protocol: Document 07/08/21 09:50 [facility] (Rec: 07/08/21 12:11 [facility] [id number]) OP-PT Subjective Patient Comments Patient Comments Pt reports compliance w/old PT exercises he remembers. PT-OP-D Balance Start: 06/24/21 07:50 Freq: Status: Active Protocol: Document 06/25/21 13:44 [facility] (Rec: 06/26/21 10:21 [facility] [id number]) Balance Tests Single Limb Standing Single Limb- Right 1 sec Single Limb- Left 2 sec PT-OP-E Functional Tests Start: 06/24/21 07:50 Freq: Status: Active Protocol: Document 07/02/21 12:10 [facility] (Rec: 07/02/21 14:33 [facility] [id number]) Functional Tests Dynamic Gait Index (DGI) Score 20/24 Functional Gait Assessment Score 16/30 PT-OP-F Manual Assessment Start: 06/24/21 07:50 Freq: Status: Active Protocol: Document 06/25/21 13:44 [facility] (Rec: 06/25/21 14:36 [facility] [id number]) Manual Assessments Soft Tissue Assessment Soft Tissue Mobility Assessment tightness in QL & ES PT-OP-G Mobility & Gait Start: 06/24/21 07:50 Freq: Status: Active Protocol: Document 06/25/21 13:44 [facility] (Rec: 06/26/21 10:21 [facility] [id number]) OP Gait Assessment Comments Gait Comments pt amb fwd flexed and with inc time walking, has dec stance time on RLE, dec push off B and does do lat leaning B w/WB PT-OP-J Posture/Palpation/Skin Start: 06/24/21 07:50 Freq: Status: Active Protocol: Document 06/25/21 13:44 [facility] (Rec: 06/25/21 14:36 [facility] [id number]) Posture Evaluation Comments Posture Comments fwd flex trunk, inc kyphosis, fwd head PT-OP-M Strength Start: 06/24/21 07:50 Freq: Status: Active Protocol: Document 06/25/21 13:44 [facility] (Rec: 06/25/21 14:36 [facility] [id number]) Hip Strength Hip Manual Muscle Testing Right Flexion (L2) 4- Good- Extension (S1) 3 Fair Abduction 3 Fair Adduction 3 Fair External Rotation 3 Fair Internal Rotation 4- Good- Left Flexion (L2) 4 Good Extension (S1) 3 Fair Abduction 3 Fair Adduction 3 Fair External Rotation 4- Good- Internal Rotation 4- Good- Knee Strength Knee Manual Muscle Testing Right Flexion (S2) 4- Good- Extension (L3) 4 Good Left Flexion (S2) 4- Good- Extension (L3) 4 Good Ankle/Foot Strength Ankle and Foot Manual Muscle Testing Right Dorsiflexion (L4) 4 Good Plantarflexion (S1) 4 Good Left Dorsiflexion (L4) 4+ Good+ Plantarflexion (S1) 4+ Good+ Comments PF tested seated PT-OP-Q Treatments Start: 06/24/21 07:50 Freq: Status: Active Protocol: Document 07/08/21 09:50 [facility] (Rec: 07/08/21 12:11 [facility] [id number]) Gym Equipment Shuttle Balance 1 Details red clips Comments fwd & side : WBOS & NBOS fwd : staggered stance Sport Cord fwd Exercise Details in mirror Cord/Resistance green Reps/Duration 10 Comments fwd walk for push off focus Therapeutic Exercises Standing Exercises wall posture Standing Exercise Name w/shoulder ext Side bilateral Reps/Minutes 1 min x2 step ups Standing Exercise Name w/alt march Side bilateral Resistance 8 in step Equipment Used rail prn Reps/Minutes 10 DF Standing Exercise Name alt w/cues for posture Side bilateral Reps/Minutes 2x15 calf Standing Exercise Name stretch Side bilateral Reps/Minutes 1 min Comments stair hip flexor Standing Exercise Name stretch Side bilateral Reps/Minutes 1 min ea Neuro Re-Education Treatment Balance Activities 4 Details toe taps B 16 in step Reps/Duration 15B 3 Details SLS w/circles w/foot on ball Reps/Duration 1 min B 1 Details hurdles Comments 1.fwd over hurdles step thru x8 2. sidestep over hurdles x2 B PT-OP-T Assessment and Plan Start: 06/24/21 07:50 Freq: Status: Active Protocol: Document 07/08/21 09:50 [facility] (Rec: 07/08/21 12:11 [facility] [id number]) Physical Therapy Assessment Goals walking Impairment 1017 back fatigue at 2.5 min starting and starting w/dec R stance time & lat lean Short Term Goal (STG) Pt will improve 6 min walk distance to at least 1300ft to show improved activity tolerance w/no more than minor back fatigue noted until the end. STG Duration 07/24/21 Residential Goal (LTG) Pt will be able to walk 1/2 mile without back fatigue or body fatigue safely w/ w/o LOB or need to lay down after . LTG Duration 09/22/21 strength Short Term Goal (STG) Pt will be indep w/HEP STG Duration 08/06/21 Osteopathic Physician Goal (LTG) Pt will improve LE strength to at least 4+/5 in all planes to show improved hip and LE staiblity in order to allow pt to help w/household tasks w/o significant fatigue and/or pain. LTG Duration 09/22/21 sit to stands Impairment 7 sit to stands for 30 sec; 5x sit to stand 21 sec Short Term Goal (STG) Pt will improve 5x sit to stand to with in 13 sec to improve funtional ability. Residential Goal (LTG) Pt will score at least 11 sit to stands in 30 sec to show dec fall risk and improved strength. LTG Duration 09/22/21 balance Short Term Goal (STG) Pt will be able to do SLS 5 sec B STG Duration 08/23/21 Osteopathic Physician Goal (LTG) Pt will score at least 25/30 on FGA and 22/24 on DGI to show low fall risk. LTG Duration 09/22 Assessment Summary Assessment Pt was challenged by all balance and strength exercises and review was needed for stretching and new handout given as pt has not been doing any of the stretches at home. Significantly difficult on RLE w/SLS activities. Physical Therapy Plan Frequency and Duration Frequency of Treatment 1-2x/week Duration of Treatment 3 months Plan of Care Start Date 06/25/21 Plan of Care End Date 09/22/21 Next Visit Focus/Plan Next Note Type Treatment Note Next Visit Plan review old exercises, hip strength & balance exercises including unstable surfaces
--- NOTE | 2021-07-14 11:20 | PT.OTN ---
Current Diagnoses Mild cognitive impairment, so stated (07/14/21) Spinal stenosis, lumbar region without neurogenic claudication (07/14/21) Difficulty in walking, not elsewhere classified (07/14/21) Other abnormalities of gait and mobility (07/14/21) Abnormal posture (07/14/21) Weakness (07/14/21) Physical Therapy Treatment Note PT-OP-A Visit Information Start: 06/24/21 07:50 Freq: Status: Active Protocol: Document 07/14/21 09:49 [facility] (Rec: 07/14/21 11:20 [facility] [id number]) Out-Patient Physical Therapy Visit Information Visit Information Visit Type Treatment Note Visit Start Time 09:51 Visit Stop Time 10:30 Total Visit Minutes 39 Visit Number 4/6 Number of DRIER ATTENDANT Visits 0 PT-OP-B Current Condition Start: 06/24/21 07:50 Freq: Status: Active Protocol: Document 06/25/21 13:44 [facility] (Rec: 06/25/21 14:36 [facility] [id number]) Current Condition History of Current Condition Onset Date chronic w/worsened steadiness Current Complaints dec steadiness, LBP History of Current Condition reports pt and her along w/MD was concerned re: steadiness. He has an saba on [employer] taht says his seatdiness is low to very low. Recommendation was initially surgery for his LB but neurosurgeon said he wasn't a canidate for surgery. Surgeon recommended anti-inflammatory meds for flare ups. Dr. Rai recommended an anti- inflammatory diet and he has lost 22 lbs. He takes 1/2 a benadryl at 3 am when he wakes up and that helps. In Dec, his pain was so severe w/ cramps that his would have to put hot moist towels on legs. Pt has been manipulated by DO and that has helped a lot. His walking is more hunched over. He has LBP that gets worse w/bending & w/ lifting and daily activities. Pt can walk about 4 blocks ( to mailbox and 1 more further and back)but if he walks further than that it really drains him to fatigue and walk starts to look unsteady. Lifting laundry inc pain and helping around the house. When he was doing his exercises and doing legs side to side and his legs were shaking a lot and his DO was happy with this. Prior Treatments and Tests PT in past and DO treatment w/ good results MRI report:IMPRESSION: Multilevel degenerative disc disease and arthropathy resulting in varying degrees of central and foraminal stenosis stable from the prior exam, including severe L3-4 and moderate L2-3 central stenosis . Treatment Goals Patient/Caregiver Goals improve balance, improve gait pattern, improve posture, dec cane use, improve ability to walk further to be able to travel, improve back pain PT-OP-C Subjective Start: 06/24/21 07:50 Freq: Status: Active Protocol: Document 07/14/21 09:49 [facility] (Rec: 07/14/21 11:20 [facility] [id number]) OP-PT Subjective Patient Comments Patient Comments Pt reports back is doing well PT-OP-D Balance Start: 06/24/21 07:50 Freq: Status: Active Protocol: Document 06/25/21 13:44 [facility] (Rec: 06/26/21 10:21 [facility] [id number]) Balance Tests Single Limb Standing Single Limb- Right 1 sec Single Limb- Left 2 sec PT-OP-E Functional Tests Start: 06/24/21 07:50 Freq: Status: Active Protocol: Document 07/02/21 12:10 [facility] (Rec: 07/02/21 14:33 [facility] [id number]) Functional Tests Dynamic Gait Index (DGI) Score 20/24 Functional Gait Assessment Score 16/30 PT-OP-F Manual Assessment Start: 06/24/21 07:50 Freq: Status: Active Protocol: Document 06/25/21 13:44 [facility] (Rec: 06/25/21 14:36 [facility] [id number]) Manual Assessments Soft Tissue Assessment Soft Tissue Mobility Assessment tightness in QL & ES PT-OP-G Mobility & Gait Start: 06/24/21 07:50 Freq: Status: Active Protocol: Document 06/25/21 13:44 [facility] (Rec: 06/26/21 10:21 [facility] [id number]) OP Gait Assessment Comments Gait Comments pt amb fwd flexed and with inc time walking, has dec stance time on RLE, dec push off B and does do lat leaning B w/WB PT-OP-J Posture/Palpation/Skin Start: 06/24/21 07:50 Freq: Status: Active Protocol: Document 06/25/21 13:44 [facility] (Rec: 06/25/21 14:36 [facility] [id number]) Posture Evaluation Comments Posture Comments fwd flex trunk, inc kyphosis, fwd head PT-OP-M Strength Start: 06/24/21 07:50 Freq: Status: Active Protocol: Document 06/25/21 13:44 [facility] (Rec: 06/25/21 14:36 [facility] [id number]) Hip Strength Hip Manual Muscle Testing Right Flexion (L2) 4- Good- Extension (S1) 3 Fair Abduction 3 Fair Adduction 3 Fair External Rotation 3 Fair Internal Rotation 4- Good- Left Flexion (L2) 4 Good Extension (S1) 3 Fair Abduction 3 Fair Adduction 3 Fair External Rotation 4- Good- Internal Rotation 4- Good- Knee Strength Knee Manual Muscle Testing Right Flexion (S2) 4- Good- Extension (L3) 4 Good Left Flexion (S2) 4- Good- Extension (L3) 4 Good Ankle/Foot Strength Ankle and Foot Manual Muscle Testing Right Dorsiflexion (L4) 4 Good Plantarflexion (S1) 4 Good Left Dorsiflexion (L4) 4+ Good+ Plantarflexion (S1) 4+ Good+ Comments PF tested seated PT-OP-Q Treatments Start: 06/24/21 07:50 Freq: Status: Active Protocol: Document 07/14/21 09:49 [facility] (Rec: 07/14/21 11:20 [facility] [id number]) Gym Equipment Sport Cord back Exercise Details cues for upright posture Cord/Resistance red Reps/Duration 10 fwd Exercise Details cues to look at exit sign Cord/Resistance red Reps/Duration 10 Comments fwd walk for push off focus Therapeutic Exercises Supine Exercises stretch Supine Exercise Name HS Side bilateral Reps/Minutes 30 sec ea LTR Side bilateral Reps/Minutes 10 bridge Side bilateral Reps/Minutes 10 Standing Exercises squats Side bilateral Reps/Minutes 15 Comments cues for butt back and no fwd rouding sit to stands Standing Exercise Name green chair Side bilateral Reps/Minutes 10 DF Standing Exercise Name alt w/cues for posture Side bilateral Reps/Minutes 2x15 calf Standing Exercise Name stretch Side bilateral Reps/Minutes 1 min Comments stair hip flexor Standing Exercise Name stretch Side bilateral Reps/Minutes 1 min ea Neuro Re-Education Treatment Balance Activities 4 Details toe taps B 16 in step Reps/Duration 15B Comments cues posture 2 Details bosu Comments 1. steps ups x5 B w/1 rail 2. balance on top x1 min PT-OP-T Assessment and Plan Start: 06/24/21 07:50 Freq: Status: Active Protocol: Document 07/14/21 09:49 [facility] (Rec: 07/14/21 11:20 [facility] [id number]) Physical Therapy Assessment Goals walking Impairment 1017 back fatigue at 2.5 min starting and starting w/dec R stance time & lat lean Short Term Goal (STG) Pt will improve 6 min walk distance to at least 1300ft to show improved activity tolerance w/no more than minor back fatigue noted until the end. STG Duration 07/24/21 Call Center Specialist Goal (LTG) Pt will be able to walk 1/2 mile without back fatigue or body fatigue safely w/ w/o LOB or need to lay down after . LTG Duration 09/22/21 strength Short Term Goal (STG) Pt will be indep w/HEP STG Duration 08/06/21 Long-Term Goal (LTG) Pt will improve LE strength to at least 4+/5 in all planes to show improved hip and LE staiblity in order to allow pt to help w/household tasks w/o significant fatigue and/or pain. LTG Duration 09/22/21 sit to stands Impairment 7 sit to stands for 30 sec; 5x sit to stand 21 sec Short Term Goal (STG) Pt will improve 5x sit to stand to with in 13 sec to improve funtional ability. Long-Term Goal (LTG) Pt will score at least 11 sit to stands in 30 sec to show dec fall risk and improved strength. LTG Duration 09/22/21 balance Short Term Goal (STG) Pt will be able to do SLS 5 sec B STG Duration 08/23/21 Long-Term Goal (LTG) Pt will score at least 25/30 on FGA and 22/24 on DGI to show low fall risk. LTG Duration 09/22 Assessment Summary Assessment Still a lot of cues needed w/ exercises especially standing exercises for posture. he did a lot of trunk flex during squats so encouraged pt and to stick w/sit to stands vs squats. Cues to use less assist w/balance activities. Physical Therapy Plan Frequency and Duration Frequency of Treatment 1-2x/week Duration of Treatment 3 months Plan of Care Start Date 06/25/21 Plan of Care End Date 09/22/21 Next Visit Focus/Plan Next Note Type Treatment Note Next Visit Plan review old exercises,cont to advance balance
--- NOTE | 2021-07-21 12:24 | PT.OTN ---
Current Diagnoses Mild cognitive impairment, so stated (07/21/21) Spinal stenosis, lumbar region without neurogenic claudication (07/21/21) Difficulty in walking, not elsewhere classified (07/21/21) Other abnormalities of gait and mobility (07/21/21) Abnormal posture (07/21/21) Weakness (07/21/21) Physical Therapy Treatment Note PT-OP-A Visit Information Start: 06/24/21 07:50 Freq: Status: Active Protocol: Document 07/21/21 10:36 [facility] (Rec: 07/21/21 12:24 [facility] [id number]) Out-Patient Physical Therapy Visit Information Visit Information Visit Type Treatment Note Visit Start Time 10:36 Visit Stop Time 11:15 Total Visit Minutes 39 Visit Number 5/6 Number of DISTRICT RECRUITER Visits 0 PT-OP-B Current Condition Start: 06/24/21 07:50 Freq: Status: Active Protocol: Document 06/25/21 13:44 [facility] (Rec: 06/25/21 14:36 [facility] [id number]) Current Condition History of Current Condition Onset Date chronic w/worsened steadiness Current Complaints dec steadiness, LBP History of Current Condition reports pt and her along w/MD was concerned re: steadiness. He has an saba on [employer] taht says his seatdiness is low to very low. Recommendation was initially surgery for his LB but neurosurgeon said he wasn't a canidate for surgery. Surgeon recommended anti-inflammatory meds for flare ups. Dr. Rai recommended an anti- inflammatory diet and he has lost 22 lbs. He takes 1/2 a benadryl at 3 am when he wakes up and that helps. In Dec, his pain was so severe w/ cramps that his would have to put hot moist towels on legs. Pt has been manipulated by DO and that has helped a lot. His walking is more hunched over. He has LBP that gets worse w/bending & w/ lifting and daily activities. Pt can walk about 4 blocks ( to mailbox and 1 more further and back)but if he walks further than that it really drains him to fatigue and walk starts to look unsteady. Lifting laundry inc pain and helping around the house. When he was doing his exercises and doing legs side to side and his legs were shaking a lot and his DO was happy with this. Prior Treatments and Tests PT in past and DO treatment w/ good results MRI report:IMPRESSION: Multilevel degenerative disc disease and arthropathy resulting in varying degrees of central and foraminal stenosis stable from the prior exam, including severe L3-4 and moderate L2-3 central stenosis . Treatment Goals Patient/Caregiver Goals improve balance, improve gait pattern, improve posture, dec cane use, improve ability to walk further to be able to travel, improve back pain PT-OP-C Subjective Start: 06/24/21 07:50 Freq: Status: Active Protocol: Document 07/21/21 10:36 [facility] (Rec: 07/21/21 12:24 [id number]PT Subjective Patient Comments Patient Comments reports after he lifted laundry and groceries and notes he was tipping more R after & fwd PT-OP-D Balance Start: 06/24/21 07:50 Freq: Status: Active Protocol: Document 06/25/21 13:44 [facility] (Rec: 06/26/21 10:21 [id number] Balance Tests Single Limb Standing Single Limb- Right 1 sec Single Limb- Left 2 sec PT-OP-E Functional Tests Start: 06/24/21 07:50 Freq: Status: Active Protocol: Document 07/02/21 12:10 [facility] (Rec: 07/02/21 14:33 [id number] Functional Tests Dynamic Gait Index (DGI) Score 20/24 Functional Gait Assessment Score 16/30 PT-OP-F Manual Assessment Start: 06/24/21 07:50 Freq: Status: Active Protocol: Document 06/25/21 13:44 [facility] (Rec: 06/25/21 14:36 [id number] Manual Assessments Soft Tissue Assessment Soft Tissue Mobility Assessment tightness in QL & ES PT-OP-G Mobility & Gait Start: 06/24/21 07:50 Freq: Status: Active Protocol: Document 06/25/21 13:44 [facility] (Rec: 06/26/21 10:21 [id number] OP Gait Assessment Comments Gait Comments pt amb fwd flexed and with inc time walking, has dec stance time on RLE, dec push off B and does do lat leaning B w/WB PT-OP-J Posture/Palpation/Skin Start: 06/24/21 07:50 Freq: Status: Active Protocol: Document 06/25/21 13:44 [facility] (Rec: 06/25/21 14:36 [facility] [id number]) Posture Evaluation Comments Posture Comments fwd flex trunk, inc kyphosis, fwd head PT-OP-M Strength Start: 06/24/21 07:50 Freq: Status: Active Protocol: Document 06/25/21 13:44 [facility] (Rec: 06/25/21 14:36 [facility] [id number]) Hip Strength Hip Manual Muscle Testing Right Flexion (L2) 4- Good- Extension (S1) 3 Fair Abduction 3 Fair Adduction 3 Fair External Rotation 3 Fair Internal Rotation 4- Good- Left Flexion (L2) 4 Good Extension (S1) 3 Fair Abduction 3 Fair Adduction 3 Fair External Rotation 4- Good- Internal Rotation 4- Good- Knee Strength Knee Manual Muscle Testing Right Flexion (S2) 4- Good- Extension (L3) 4 Good Left Flexion (S2) 4- Good- Extension (L3) 4 Good Ankle/Foot Strength Ankle and Foot Manual Muscle Testing Right Dorsiflexion (L4) 4 Good Plantarflexion (S1) 4 Good Left Dorsiflexion (L4) 4+ Good+ Plantarflexion (S1) 4+ Good+ Comments PF tested seated PT-OP-Q Treatments Start: 06/24/21 07:50 Freq: Status: Active Protocol: Document 07/21/21 10:36 [facility] (Rec: 07/21/21 12:24 [facility] [id number]) Gym Equipment Shuttle Balance 1 Details red clips Comments fwd & side : WBOS & NBOS fwd : staggered stance Sport Cord back Exercise Details cues for upright posture Cord/Resistance red Reps/Duration 10 fwd Exercise Details cues to look at exit sign Cord/Resistance red Reps/Duration 10 Comments fwd walk for push off focus Therapeutic Exercises Standing Exercises calf Standing Exercise Name stretch Side bilateral Reps/Minutes 1 min Comments JAY Neuro Re-Education Treatment Balance Activities 5 Comments SLS w/opp foot in/out of tandem B 4 Details toe taps B 16 in step Reps/Duration 15B Comments cues posture 2 Details bosu Comments 1. steps ups x5 B w/1 rail 2. balance on top x1 min 3 Details SLS w/circles w/foot on ball Reps/Duration 1 min B 1 Details hurdles Comments 1.fwd over hurdles step thru x8 2. sidestep over hurdles x2 B PT-OP-T Assessment and Plan Start: 06/24/21 07:50 Freq: Status: Active Protocol: Document 07/21/21 10:36 [facility] (Rec: 07/21/21 12:24 [facility] [id number]) Physical Therapy Assessment Goals walking Impairment 1017 back fatigue at 2.5 min starting and starting w/dec R stance time & lat lean Short Term Goal (STG) Pt will improve 6 min walk distance to at least 1300ft to show improved activity tolerance w/no more than minor back fatigue noted until the end. STG Duration 07/24/21 Bolt Cutter Goal (LTG) Pt will be able to walk 1/2 mile without back fatigue or body fatigue safely w/ w/o LOB or need to lay down after . LTG Duration 09/22/21 strength Short Term Goal (STG) Pt will be indep w/HEP STG Duration 08/06/21 Bolt Cutter Goal (LTG) Pt will improve LE strength to at least 4+/5 in all planes to show improved hip and LE staiblity in order to allow pt to help w/household tasks w/o significant fatigue and/or pain. LTG Duration 09/22/21 sit to stands Impairment 7 sit to stands for 30 sec; 5x sit to stand 21 sec Short Term Goal (STG) Pt will improve 5x sit to stand to with in 13 sec to improve funtional ability. Bolt Cutter Goal (LTG) Pt will score at least 11 sit to stands in 30 sec to show dec fall risk and improved strength. LTG Duration 09/22/21 balance Short Term Goal (STG) Pt will be able to do SLS 5 sec B STG Duration 08/23/21 Group Home Goal (LTG) Pt will score at least 25/30 on FGA and 22/24 on DGI to show low fall risk. LTG Duration 09/22 Assessment Summary Assessment pt required cueing throughout exercises and needed PT to cont to cue for posture and form w/exercises. He still shows dec balance with unstable surfacs and NBOS and requires cues w/gait. Physical Therapy Plan Frequency and Duration Frequency of Treatment 1-2x/week Duration of Treatment 3 months Plan of Care Start Date 06/25/21 Plan of Care End Date 09/22/21 Next Visit Focus/Plan Next Note Type Treatment Note Next Visit Plan review old exercises,cont to advance balance
--- NOTE | 2021-07-29 14:36 | PT.OTN ---
Current Diagnoses Mild cognitive impairment, so stated (07/29/21) Spinal stenosis, lumbar region without neurogenic claudication (07/29/21) Difficulty in walking, not elsewhere classified (07/29/21) Other abnormalities of gait and mobility (07/29/21) Abnormal posture (07/29/21) Weakness (07/29/21) Physical Therapy Treatment Note PT-OP-A Visit Information Start: 06/24/21 07:50 Freq: Status: Active Protocol: Document 07/29/21 09:43 [facility] (Rec: 07/29/21 14:35 [facility] [id number]) Out-Patient Physical Therapy Visit Information Visit Information Visit Type Progress Note Visit Start Time 09:48 Visit Stop Time 10:30 Total Visit Minutes 42 Visit Number 10/13 Number of PATIENT PORTAL CONCIERGE Visits 0 PT-OP-B Current Condition Start: 06/24/21 07:50 Freq: Status: Active Protocol: Document 06/25/21 13:44 [facility] (Rec: 06/25/21 14:36 [facility] [id number]) Current Condition History of Current Condition Onset Date chronic w/worsened steadiness Current Complaints dec steadiness, LBP History of Current Condition reports pt and her along w/MD was concerned re: steadiness. He has an saba on [employer] taht says his seatdiness is low to very low. Recommendation was initially surgery for his LB but neurosurgeon said he wasn't a canidate for surgery. Surgeon recommended anti-inflammatory meds for flare ups. Dr. Rai recommended an anti- inflammatory diet and he has lost 22 lbs. He takes 1/2 a benadryl at 3 am when he wakes up and that helps. In Dec, his pain was so severe w/ cramps that his would have to put hot moist towels on legs. Pt has been manipulated by DO and that has helped a lot. His walking is more hunched over. He has LBP that gets worse w/bending & w/ lifting and daily activities. Pt can walk about 4 blocks ( to mailbox and 1 more further and back)but if he walks further than that it really drains him to fatigue and walk starts to look unsteady. Lifting laundry inc pain and helping around the house. When he was doing his exercises and doing legs side to side and his legs were shaking a lot and his DO was happy with this. Prior Treatments and Tests PT in past and DO treatment w/ good results MRI report:IMPRESSION: Multilevel degenerative disc disease and arthropathy resulting in varying degrees of central and foraminal stenosis stable from the prior exam, including severe L3-4 and moderate L2-3 central stenosis . Treatment Goals Patient/Caregiver Goals improve balance, improve gait pattern, improve posture, dec cane use, improve ability to walk further to be able to travel, improve back pain PT-OP-C Subjective Start: 06/24/21 07:50 Freq: Status: Active Protocol: Document 07/29/21 09:43 [facility] (Rec: 07/29/21 14:35 [facility] [id number]) OP-PT Subjective Patient Comments Patient Comments Pt reports back has been doing a little better. Pt reports still doing walks to mailbox but fatigue isn't as much. PT-OP-D Balance Start: 06/24/21 07:50 Freq: Status: Active Protocol: Document 07/29/21 09:43 [facility] (Rec: 07/29/21 14:35 [facility] [id number]) Balance Tests Single Limb Standing Single Limb- Right 2 sec Single Limb- Left 2 sec PT-OP-E Functional Tests Start: 06/24/21 07:50 Freq: Status: Active Protocol: Document 07/29/21 09:43 [facility] (Rec: 07/29/21 14:[id number] Functional Tests 6 Minute Walk Test Distance 1139ft Device Used none Comments no dec in foot clearance until last min; better posture but still slight fw 30 Second Sit to Stand Test Score 7 Dynamic Gait Index (DGI) Score 20/24 Five Times Sit to Stand Test Score 21sec Functional Gait Assessment Score 19/30 PT-OP-F Manual Assessment Start: 06/24/21 07:50 Freq: Status: Active Protocol: Document 06/25/21 13:44 [facility] (Rec: 06/25/21 14:36 [facility] [id number]) Manual Assessments Soft Tissue Assessment Soft Tissue Mobility Assessment tightness in QL & ES PT-OP-G Mobility & Gait Start: 06/24/21 07:50 Freq: Status: Active Protocol: Document 06/25/21 13:44 [facility] (Rec: 06/26/21 10:21 [facility] [id number]) OP Gait Assessment Comments Gait Comments pt amb fwd flexed and with inc time walking, has dec stance time on RLE, dec push off B and does do lat leaning B w/WB PT-OP-J Posture/Palpation/Skin Start: 06/24/21 07:50 Freq: Status: Active Protocol: Document 06/25/21 13:44 [facility] (Rec: 06/25/21 14:36 [facility] [id number]) Posture Evaluation Comments Posture Comments fwd flex trunk, inc kyphosis, fwd head PT-OP-M Strength Start: 06/24/21 07:50 Freq: Status: Active Protocol: Document 07/29/21 09:43 [facility] (Rec: 07/29/21 14:35 [facility] [id number]) Hip Strength Hip Manual Muscle Testing Right Flexion (L2) 4- Good- Extension (S1) 3+ Fair+ Abduction 4- Good- External Rotation 3 Fair Internal Rotation 4- Good- Left Flexion (L2) 4 Good Extension (S1) 3+ Fair+ Abduction 4- Good- External Rotation 4- Good- Internal Rotation 4 Good Knee Strength Knee Manual Muscle Testing Right Flexion (S2) 4+ Good+ Extension (L3) 4 Good Left Flexion (S2) 4+ Good+ Extension (L3) 4+ Good+ Ankle/Foot Strength Ankle and Foot Manual Muscle Testing Right Dorsiflexion (L4) 5 Normal Plantarflexion (S1) 5 Normal Left Dorsiflexion (L4) 5 Normal Plantarflexion (S1) 5 Normal Comments PF tested seated PT-OP-Q Treatments Start: 06/24/21 07:50 Freq: Status: Active Protocol: Document 07/21/21 10:36 [facility] (Rec: 07/21/21 12:24 [facility] [id number]) Gym Equipment Shuttle Balance 1 Details red clips Comments fwd & side : WBOS & NBOS fwd : staggered stance Sport Cord back Exercise Details cues for upright posture Cord/Resistance red Reps/Duration 10 fwd Exercise Details cues to look at exit sign Cord/Resistance red Reps/Duration 10 Comments fwd walk for push off focus Therapeutic Exercises Standing Exercises calf Standing Exercise Name stretch Side bilateral Reps/Minutes 1 min Comments JAY Neuro Re-Education Treatment Balance Activities 5 Comments SLS w/opp foot in/out of tandem B 4 Details toe taps B 16 in step Reps/Duration 15B Comments cues posture 2 Details bosu Comments 1. steps ups x5 B w/1 rail 2. balance on top x1 min 3 Details SLS w/circles w/foot on ball Reps/Duration 1 min B 1 Details hurdles Comments 1.fwd over hurdles step thru x8 2. sidestep over hurdles x2 B PT-OP-T Assessment and Plan Start: 06/24/21 07:50 Freq: Status: Active Protocol: Document 07/29/21 09:43 [facility] (Rec: 07/29/21 14:35 [facility] [id number]) Physical Therapy Assessment Goals walking Impairment 1017 back fatigue at 2.5 min starting and starting w/dec R stance time & lat lean Short Term Goal (STG) Pt will improve 6 min walk distance to at least 1300ft to show improved activity tolerance w/no more than minor back fatigue noted until the end. 07/29-improved STG Duration 07/24/21 Half-Way Goal (LTG) Pt will be able to walk 1/2 mile without back fatigue or body fatigue safely w/ w/o LOB or need to lay down after . LTG Duration 09/22/21 strength Short Term Goal (STG) Pt will be indep w/HEP STG Duration achieved-progressing as able [employer] Goal (LTG) Pt will improve LE strength to at least 4+/5 in all planes to show improved hip and LE staiblity in order to allow pt to help w/household tasks w/o significant fatigue and/or pain. 07/29-improved LTG Duration 09/22/21 sit to stands Impairment 7 sit to stands for 30 sec; 5x sit to stand 21 sec Short Term Goal (STG) Pt will improve 5x sit to stand to with in 13 sec to improve funtional ability. 07/29-no change STG Duration 08/17/21 [employer] Goal (LTG) Pt will score at least 11 sit to stands in 30 sec to show dec fall risk and improved strength. LTG Duration 09/22/21 balance Short Term Goal (STG) Pt will be able to do SLS 5 sec B 07/29-minor improvement R STG Duration 08/23/21 Half-Way Goal (LTG) Pt will score at least 25/30 on FGA and 22/ on DGI to show low fall risk. 07/29-DGI :FGA19/30 LTG Duration 09/22 Assessment Summary Assessment Pt is progressing with balance and gait but is still signficiantly limited. 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 He also is demonstrating better posture for more of session. W/6 min walk, pt did well with posture & wt bearing until last min where he had dec toe clearance and dec stance on RLE vs 1/2 way through at IE. He would benefit from cont PT at this tiem to work on strength, balance and stability. Physical Therapy Plan Frequency and Duration Frequency of Treatment 1-2x/week Duration of Treatment 3 months Plan of Care Start Date 06/25/21 Plan of Care End Date 09/22/21 Therapeutic Interventions Therapeutic Interventions Aquatic Therapy,Balance Training,Gait Training,Home Exercise Program,Joint Mobilizations,Manual Therapy, Neuromuscular Re-education, Patient/Caregiver Education, Self-Care/Home Management,Soft Tissue Mobilization,Taping, Therapeutic Activities, Therapeutic Exercises Modalities Cold Pack/Ice Massage,Electric Stimulation,Hot Packs, Infrared Therapy,Ultrasound Next Visit Focus/Plan Next Note Type Treatment Note Next Visit Plan cont to work on gait and balance
--- NOTE | 2021-08-04 13:22 | PT.OTN ---
Current Diagnoses Mild cognitive impairment, so stated (08/04/21) Spinal stenosis, lumbar region without neurogenic claudication (08/04/21) Difficulty in walking, not elsewhere classified (08/04/21) Other abnormalities of gait and mobility (08/04/21) Abnormal posture (08/04/21) Weakness (08/04/21) Physical Therapy Treatment Note PT-OP-A Visit Information Start: 06/24/21 07:50 Freq: Status: Active Protocol: Document 08/04/21 09:00 [facility] (Rec: 08/04/21 13:21 [facility] [id number]) Out-Patient Physical Therapy Visit Information Visit Information Visit Type Treatment Note Visit Start Time 09:51 Visit Stop Time 10:30 Total Visit Minutes 39 Visit Number 11/18 Number of PUMPING STATION SUPERVISOR Visits 0 PT-OP-B Current Condition Start: 06/24/21 07:50 Freq: Status: Active Protocol: Document 06/25/21 13:44 [facility] (Rec: 06/25/21 14:36 [facility] [id number]) Current Condition History of Current Condition Onset Date chronic w/worsened steadiness Current Complaints dec steadiness, LBP History of Current Condition reports pt and her along w/MD was concerned re: steadiness. He has an saba on [employer] taht says his seatdiness is low to very low. Recommendation was initially surgery for his LB but neurosurgeon said he wasn't a canidate for surgery. Surgeon recommended anti-inflammatory meds for flare ups. Dr. Rai recommended an anti- inflammatory diet and he has lost 22 lbs. He takes 1/2 a benadryl at 3 am when he wakes up and that helps. In Dec, his pain was so severe w/ cramps that his would have to put hot moist towels on legs. Pt has been manipulated by DO and that has helped a lot. His walking is more hunched over. He has LBP that gets worse w/bending & w/ lifting and daily activities. Pt can walk about 4 blocks ( to mailbox and 1 more further and back)but if he walks further than that it really drains him to fatigue and walk starts to look unsteady. Lifting laundry inc pain and helping around the house. When he was doing his exercises and doing legs side to side and his legs were shaking a lot and his DO was happy with this. Prior Treatments and Tests PT in past and DO treatment w/ good results MRI report:IMPRESSION: Multilevel degenerative disc disease and arthropathy resulting in varying degrees of central and foraminal stenosis stable from the prior exam, including severe L3-4 and moderate L2-3 central stenosis . Treatment Goals Patient/Caregiver Goals improve balance, improve gait pattern, improve posture, dec cane use, improve ability to walk further to be able to travel, improve back pain PT-OP-C Subjective Start: 06/24/21 07:50 Freq: Status: Active Protocol: Document 08/04/21 09:00 [facility] (Rec: 08/04/21 13:21 [facility] [id number]) OP-PT Subjective Patient Comments Patient Comments reports d/t pt feeling better, he lifted a laundry basket and a heavy bag of groceries and had to put an ice pack on. Overall doing better slowly though PT-OP-D Balance Start: 06/24/21 07:50 Freq: Status: Active Protocol: Document 07/29/21 09:43 [facility] (Rec: 07/29/21 14:35 [id number] Balance Tests Single Limb Standing Single Limb- Right 2 sec Single Limb- Left 2 sec PT-OP-E Functional Tests Start: 06/24/21 07:50 Freq: Status: Active Protocol: Document 07/29/21 09:43 [facility] (Rec: 07/29/21 14:35 [id number] Functional Tests 6 Minute Walk Test Distance 1139ft Device Used none Comments no dec in foot clearance until last min; better posture but still slight fw 30 Second Sit to Stand Test Score 7 Dynamic Gait Index (DGI) Score 20/24 Five Times Sit to Stand Test Score 21sec Functional Gait Assessment Score 19/30 PT-OP-F Manual Assessment Start: 06/24/21 07:50 Freq: Status: Active Protocol: Document 06/25/21 13:44 [facility] (Rec: 06/25/21 14:36 [id number] Manual Assessments Soft Tissue Assessment Soft Tissue Mobility Assessment tightness in QL & ES PT-OP-G Mobility & Gait Start: 06/24/21 07:50 Freq: Status: Active Protocol: Document 06/25/21 13:44 [facility] (Rec: 06/26/21 10:21 [facility] [id number]) OP Gait Assessment Comments Gait Comments pt amb fwd flexed and with inc time walking, has dec stance time on RLE, dec push off B and does do lat leaning B w/WB PT-OP-J Posture/Palpation/Skin Start: 06/24/21 07:50 Freq: Status: Active Protocol: Document 06/25/21 13:44 [facility] (Rec: 06/25/21 14:36 [facility] [id number]) Posture Evaluation Comments Posture Comments fwd flex trunk, inc kyphosis, fwd head PT-OP-M Strength Start: 06/24/21 07:50 Freq: Status: Active Protocol: Document 07/29/21 09:43 [facility] (Rec: 07/29/21 14:35 [facility] [id number]) Hip Strength Hip Manual Muscle Testing Right Flexion (L2) 4- Good- Extension (S1) 3+ Fair+ Abduction 4- Good- External Rotation 3 Fair Internal Rotation 4- Good- Left Flexion (L2) 4 Good Extension (S1) 3+ Fair+ Abduction 4- Good- External Rotation 4- Good- Internal Rotation 4 Good Knee Strength Knee Manual Muscle Testing Right Flexion (S2) 4+ Good+ Extension (L3) 4 Good Left Flexion (S2) 4+ Good+ Extension (L3) 4+ Good+ Ankle/Foot Strength Ankle and Foot Manual Muscle Testing Right Dorsiflexion (L4) 5 Normal Plantarflexion (S1) 5 Normal Left Dorsiflexion (L4) 5 Normal Plantarflexion (S1) 5 Normal Comments PF tested seated PT-OP-Q Treatments Start: 06/24/21 07:50 Freq: Status: Active Protocol: Document 08/04/21 09:00 [facility] (Rec: 08/04/21 13:21 [facility] [id number]) Gym Equipment Sport Cord fwd Exercise Details cues to look at exit sign Cord/Resistance red Reps/Duration 10 Comments fwd walk for push off focus Therapeutic Exercises Supine Exercises ER Supine Exercise Name hip Side bilateral Equipment Used L3 Reps/Minutes 15 Standing Exercises stretch Standing Exercise Name standing luis pose Equipment Used treadmill bar Reps/Minutes 30 sec squats Standing Exercise Name 1.sumo 2. lifting empty basket Side bilateral Reps/Minutes 12 ea Comments max cues for back and knee position step ups Standing Exercise Name w/alt march Side bilateral Reps/Minutes 10 Comments hand on reail as needed and max cues for knee ext Neuro Re-Education Treatment Balance Activities 5 Comments 1. standing balnce on bosu progressed to head turns 2. side step ups lat bosu w/ braun for feet for big steps down x12 B 4 Details toe taps B 16 in step Reps/Duration 15B Comments cues posture 2 Details SL balance Comments rolling ball under foot PT-OP-T Assessment and Plan Start: 06/24/21 07:50 Freq: Status: Active Protocol: Document 08/04/21 09:00 [facility] (Rec: 08/04/21 13:21 [facility] [id number]) Physical Therapy Assessment Goals walking Impairment 1017 back fatigue at 2.5 min starting and starting w/dec R stance time & lat lean Short Term Goal (STG) Pt will improve 6 min walk distance to at least 1300ft to show improved activity tolerance w/no more than minor back fatigue noted until the end. 07/29-improved STG Duration 07/24/21 Liquefier Goal (LTG) Pt will be able to walk 1/2 mile without back fatigue or body fatigue safely w/ w/o LOB or need to lay down after . LTG Duration 09/22/21 strength Short Term Goal (STG) Pt will be indep w/HEP STG Duration achieved-progressing as able Liquefier Goal (LTG) Pt will improve LE strength to at least 4+/5 in all planes to show improved hip and LE staiblity in order to allow pt to help w/household tasks w/o significant fatigue and/or pain. 07/29-improved LTG Duration 09/22/21 sit to stands Impairment 7 sit to stands for 30 sec; 5x sit to stand 21 sec Short Term Goal (STG) Pt will improve 5x sit to stand to with in 13 sec to improve funtional ability. 07/29-no change STG Duration 08/17/21 Liquefier Goal (LTG) Pt will score at least 11 sit to stands in 30 sec to show dec fall risk and improved strength. LTG Duration 09/22/21 balance Short Term Goal (STG) Pt will be able to do SLS 5 sec B 07/29-minor improvement R STG Duration 08/23/21 Liquefier Goal (LTG) Pt will score at least 25/30 on FGA and 22/ on DGI to show low fall risk. 07/29-DGI 20/24:FGA19/30 LTG Duration 09/22 Assessment Summary Assessment Pt did well with exercises today but still requires max cues for posture and larger steps. He still struggles with SL activities and is unstable . Physical Therapy Plan Frequency and Duration Frequency of Treatment 1-2x/week Duration of Treatment 3 months Plan of Care Start Date 06/25/21 Plan of Care End Date 09/22/21 Next Visit Focus/Plan Next Note Type Treatment Note Next Visit Plan cont to work on gait and balance
--- NOTE | 2021-08-13 11:57 | PT.OTN ---
Current Diagnoses Mild cognitive impairment, so stated (08/13/21) Spinal stenosis, lumbar region without neurogenic claudication (08/13/21) Difficulty in walking, not elsewhere classified (08/13/21) Other abnormalities of gait and mobility (08/13/21) Abnormal posture (08/13/21) Weakness (08/13/21) Physical Therapy Treatment Note PT-OP-A Visit Information Start: 06/24/21 07:50 Freq: Status: Active Protocol: Document 08/13/21 07:29 [facility] (Rec: 08/13/21 11:57 [facility] [id number]) Out-Patient Physical Therapy Visit Information Visit Information Visit Type Treatment Note Visit Start Time 07:30 Visit Stop Time 08:16 Total Visit Minutes 46 Visit Number 12/19 Number of CHILD ADOLESCENT CARE Visits 0 PT-OP-B Current Condition Start: 06/24/21 07:50 Freq: Status: Active Protocol: Document 06/25/21 13:44 [facility] (Rec: 06/25/21 14:36 [facility] [id number]) Current Condition History of Current Condition Onset Date chronic w/worsened steadiness Current Complaints dec steadiness, LBP History of Current Condition reports pt and her along w/MD was concerned re: steadiness. He has an saba on [email or web address] taht says his seatdiness is low to very low. Recommendation was initially surgery for his LB but neurosurgeon said he wasn't a canidate for surgery. Surgeon recommended anti-inflammatory meds for flare ups. Dr. Rai recommended an anti- inflammatory diet and he has lost 22 lbs. He takes 1/2 a benadryl at 3 am when he wakes up and that helps. In Dec, his pain was so severe w/ cramps that his would have to put hot moist towels on legs. Pt has been manipulated by DO and that has helped a lot. His walking is more hunched over. He has LBP that gets worse w/bending & w/ lifting and daily activities. Pt can walk about 4 blocks ( to mailbox and 1 more further and back)but if he walks further than that it really drains him to fatigue and walk starts to look unsteady. Lifting laundry inc pain and helping around the house. When he was doing his exercises and doing legs side to side and his legs were shaking a lot and his DO was happy with this. Prior Treatments and Tests PT in past and DO treatment w/ good results MRI report:IMPRESSION: Multilevel degenerative disc disease and arthropathy resulting in varying degrees of central and foraminal stenosis stable from the prior exam, including severe L3-4 and moderate L2-3 central stenosis . Treatment Goals Patient/Caregiver Goals improve balance, improve gait pattern, improve posture, dec cane use, improve ability to walk further to be able to travel, improve back pain PT-OP-C Subjective Start: 06/24/21 07:50 Freq: Status: Active Protocol: Document 08/13/21 07:29 [facility] (Rec: 08/13/21 11:57 [facility] [id number]) OP-PT Subjective Patient Comments Patient Comments reports she feels like since he hasn't seen DO in a month, his posture is way worse PT-OP-D Balance Start: 06/24/21 07:50 Freq: Status: Active Protocol: Document 07/29/21 09:43 [facility] (Rec: 07/29/21 14:35 [facility] [id number]) Balance Tests Single Limb Standing Single Limb- Right 2 sec Single Limb- Left 2 sec PT-OP-E Functional Tests Start: 06/24/21 07:50 Freq: Status: Active Protocol: Document 07/29/21 09:43 [facility] (Rec: 07/29/21 14:35 [facility] [id number]) Functional Tests 6 Minute Walk Test Distance 1139ft Device Used none Comments no dec in foot clearance until last min; better posture but still slight fw 30 Second Sit to Stand Test Score 7 Dynamic Gait Index (DGI) Score 20/24 Five Times Sit to Stand Test Score 21sec Functional Gait Assessment Score 19/30 PT-OP-F Manual Assessment Start: 06/24/21 07:50 Freq: Status: Active Protocol: Document 06/25/21 13:44 [facility] (Rec: 06/25/21 14:36 [facility] [id number]) Manual Assessments Soft Tissue Assessment Soft Tissue Mobility Assessment tightness in QL & ES PT-OP-G Mobility & Gait Start: 06/24/21 07:50 Freq: Status: Active Protocol: Document 06/25/21 13:44 [facility] (Rec: 06/26/21 10:21 [facility] [id number]) OP Gait Assessment Comments Gait Comments pt amb fwd flexed and with inc time walking, has dec stance time on RLE, dec push off B and does do lat leaning B w/WB PT-OP-J Posture/Palpation/Skin Start: 06/24/21 07:50 Freq: Status: Active Protocol: Document 06/25/21 13:44 [facility] (Rec: 06/25/21 14:36 [facility] [id number]) Posture Evaluation Comments Posture Comments fwd flex trunk, inc kyphosis, fwd head PT-OP-M Strength Start: 06/24/21 07:50 Freq: Status: Active Protocol: Document 07/29/21 09:43 [facility] (Rec: 07/29/21 14:35 [facility] [id number]) Hip Strength Hip Manual Muscle Testing Right Flexion (L2) 4- Good- Extension (S1) 3+ Fair+ Abduction 4- Good- External Rotation 3 Fair Internal Rotation 4- Good- Left Flexion (L2) 4 Good Extension (S1) 3+ Fair+ Abduction 4- Good- External Rotation 4- Good- Internal Rotation 4 Good Knee Strength Knee Manual Muscle Testing Right Flexion (S2) 4+ Good+ Extension (L3) 4 Good Left Flexion (S2) 4+ Good+ Extension (L3) 4+ Good+ Ankle/Foot Strength Ankle and Foot Manual Muscle Testing Right Dorsiflexion (L4) 5 Normal Plantarflexion (S1) 5 Normal Left Dorsiflexion (L4) 5 Normal Plantarflexion (S1) 5 Normal Comments PF tested seated PT-OP-Q Treatments Start: 06/24/21 07:50 Freq: Status: Active Protocol: Document 08/13/21 07:29 [facility] (Rec: 08/13/21 11:57 [facility] [id number]) Gym Equipment Sport Cord step up Exercise Details 8 in step Cord/Resistance green Reps/Duration 10 B fwd Exercise Details cues to look at exit sign Cord/Resistance red Reps/Duration 10 Comments fwd walk for push off focus Therapeutic Exercises Sidelying Exercises open book Side bilateral Reps/Minutes 5 min Standing Exercises wt shifts Standing Exercise Name lat Side bilateral Reps/Minutes 10 Neuro Re-Education Treatment Balance Activities 3 Details tandem stance trials B by counter 1 Comments 1. SLS trials w/ 1 finger on counter 2. july w/hand hover over counter w/cues for posture x10 B Self-Care/Home Management Treatment Education Caregiver Education discuss w/pt and re: pt needing to do exercises after DO treatment to help maintain gains. Edu to pt to do wall posture mult times in day and try placing stikcy note on wall to remind pt every time he goes by a frequently passed wall to work on his wall posture. Edu to avoid being supine and propped into significant cervical and thoracic flex to watch TV and discussed how to use throw pillows to prop in recliner PT-OP-T Assessment and Plan Start: 06/24/21 07:50 Freq: Status: Active Protocol: Document 08/13/21 07:29 [facility] (Rec: 08/13/21 11:57 [facility] [id number]) Physical Therapy Assessment Goals walking Impairment 1017 back fatigue at 2.5 min starting and starting w/dec R stance time & lat lean Short Term Goal (STG) Pt will improve 6 min walk distance to at least 1300ft to show improved activity tolerance w/no more than minor back fatigue noted until the end. 07/29-improved STG Duration 07/24/21 Residential Goal (LTG) Pt will be able to walk 1/2 mile without back fatigue or body fatigue safely w/ w/o LOB or need to lay down after . LTG Duration 09/22/21 strength Short Term Goal (STG) Pt will be indep w/HEP STG Duration achieved-progressing as able Residential Goal (LTG) Pt will improve LE strength to at least 4+/5 in all planes to show improved hip and LE staiblity in order to allow pt to help w/household tasks w/o significant fatigue and/or pain. 07/29-improved LTG Duration 09/22/21 sit to stands Impairment 7 sit to stands for 30 sec; 5x sit to stand 21 sec Short Term Goal (STG) Pt will improve 5x sit to stand to with in 13 sec to improve funtional ability. 07/29-no change STG Duration 08/17/21 Ground Crew Chief Goal (LTG) Pt will score at least 11 sit to stands in 30 sec to show dec fall risk and improved strength. LTG Duration 09/22/21 balance Short Term Goal (STG) Pt will be able to do SLS 5 sec B 07/29-minor improvement R STG Duration 08/23/21 Ground Crew Chief Goal (LTG) Pt will score at least 25/30 on FGA and 22/24 on DGI to show low fall risk. 07/29-DGI :FGA19/30 LTG Duration 09/22 Assessment Summary Assessment Pt still requires a lot of cues for performance of exercsies and today had a lot of SB and flwd flex in standing. Worked to get him to straighten up and pt notes it just feels weird when placed more neutral. Physical Therapy Plan Frequency and Duration Frequency of Treatment 1-2x/week Duration of Treatment 3 months Plan of Care Start Date 06/25/21 Plan of Care End Date 09/22/21 Next Visit Focus/Plan Next Note Type Treatment Note Next Visit Plan cont to work on gait and balance
--- NOTE | 2021-09-01 18:16 | PT.OTN ---
Current Diagnoses Mild cognitive impairment, so stated (09/01/21) Spinal stenosis, lumbar region without neurogenic claudication (09/01/21) Difficulty in walking, not elsewhere classified (09/01/21) Other abnormalities of gait and mobility (09/01/21) Abnormal posture (09/01/21) Weakness (09/01/21) Physical Therapy Treatment Note PT-OP-A Visit Information Start: 06/24/21 07:50 Freq: Status: Active Protocol: Document 09/01/21 15:06 [facility] (Rec: 09/01/21 18:16 [facility] [id number]) Out-Patient Physical Therapy Visit Information Visit Information Visit Type Treatment Note Visit Start Time 15:18 Visit Stop Time 16:00 Total Visit Minutes 42 Visit Number 01/19 Number of SPICE MILLER Visits 0 PT-OP-B Current Condition Start: 06/24/21 07:50 Freq: Status: Active Protocol: Document 06/25/21 13:44 [facility] (Rec: 06/25/21 14:36 [facility] [id number]) Current Condition History of Current Condition Onset Date chronic w/worsened steadiness Current Complaints dec steadiness, LBP History of Current Condition reports pt and her along w/MD was concerned re: steadiness. He has an saba on [place] taht says his seatdiness is low to very low. Recommendation was initially surgery for his LB but neurosurgeon said he wasn't a canidate for surgery. Surgeon recommended anti-inflammatory meds for flare ups. Dr. Rai recommended an anti- inflammatory diet and he has lost 22 lbs. He takes 1/2 a benadryl at 3 am when he wakes up and that helps. In Dec, his pain was so severe w/ cramps that his would have to put hot moist towels on legs. Pt has been manipulated by DO and that has helped a lot. His walking is more hunched over. He has LBP that gets worse w/bending & w/ lifting and daily activities. Pt can walk about 4 blocks ( to mailbox and 1 more further and back)but if he walks further than that it really drains him to fatigue and walk starts to look unsteady. Lifting laundry inc pain and helping around the house. When he was doing his exercises and doing legs side to side and his legs were shaking a lot and his DO was happy with this. Prior Treatments and Tests PT in past and DO treatment w/ good results MRI report:IMPRESSION: Multilevel degenerative disc disease and arthropathy resulting in varying degrees of central and foraminal stenosis stable from the prior exam, including severe L3-4 and moderate L2-3 central stenosis . Treatment Goals Patient/Caregiver Goals improve balance, improve gait pattern, improve posture, dec cane use, improve ability to walk further to be able to travel, improve back pain PT-OP-C Subjective Start: 06/24/21 07:50 Freq: Status: Active Protocol: Document 09/01/21 15:06 [facility] (Rec: 09/01/21 18:16 [facility] [id number]) OP-PT Subjective Patient Comments Patient Comments reports pt is doing well. Her mother so they were away in [place]. He has been having less pain in back and has been doing more steps in general when there. 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 Pt follows up w/primary Wednesday and will discuss this PT-OP-D Balance Start: 06/24/21 07:50 Freq: Status: Active Protocol: Document 07/29/21 09:43 [facility] (Rec: 07/29/21 14:35 [facility] [id number]) Balance Tests Single Limb Standing Single Limb- Right 2 sec Single Limb- Left 2 sec PT-OP-E Functional Tests Start: 06/24/21 07:50 Freq: Status: Active Protocol: Document 07/29/21 09:43 [facility] (Rec: 07/29/21 14:35 [facility] [id number]) Functional Tests 6 Minute Walk Test Distance 1139ft Device Used none Comments no dec in foot clearance until last min; better posture but still slight fw 30 Second Sit to Stand Test Score 7 Dynamic Gait Index (DGI) Score 20/24 Five Times Sit to Stand Test Score 21sec Functional Gait Assessment Score 19/30 PT-OP-F Manual Assessment Start: 06/24/21 07:50 Freq: Status: Active Protocol: Document 06/25/21 13:44 [facility] (Rec: 06/25/21 14:36 [facility] [id number]) Manual Assessments Soft Tissue Assessment Soft Tissue Mobility Assessment tightness in QL & ES PT-OP-G Mobility & Gait Start: 06/24/21 07:50 Freq: Status: Active Protocol: Document 06/25/21 13:44 [facility] (Rec: 06/26/21 10:21 [facility] [id number]) OP Gait Assessment Comments Gait Comments pt amb fwd flexed and with inc time walking, has dec stance time on RLE, dec push off B and does do lat leaning B w/WB PT-OP-J Posture/Palpation/Skin Start: 06/24/21 07:50 Freq: Status: Active Protocol: Document 06/25/21 13:44 [facility] (Rec: 06/25/21 14:[id number] Posture Evaluation Comments Posture Comments fwd flex trunk, inc kyphosis, fwd head PT-OP-M Strength Start: 06/24/21 07:50 Freq: Status: Active Protocol: Document 07/29/21 09:43 [facility] (Rec: 07/29/21 14:35 [facility] [id number]) Hip Strength Hip Manual Muscle Testing Right Flexion (L2) 4- Good- Extension (S1) 3+ Fair+ Abduction 4- Good- External Rotation 3 Fair Internal Rotation 4- Good- Left Flexion (L2) 4 Good Extension (S1) 3+ Fair+ Abduction 4- Good- External Rotation 4- Good- Internal Rotation 4 Good Knee Strength Knee Manual Muscle Testing Right Flexion (S2) 4+ Good+ Extension (L3) 4 Good Left Flexion (S2) 4+ Good+ Extension (L3) 4+ Good+ Ankle/Foot Strength Ankle and Foot Manual Muscle Testing Right Dorsiflexion (L4) 5 Normal Plantarflexion (S1) 5 Normal Left Dorsiflexion (L4) 5 Normal Plantarflexion (S1) 5 Normal Comments PF tested seated PT-OP-Q Treatments Start: 06/24/21 07:50 Freq: Status: Active Protocol: Document 09/01/21 15:06 [facility] (Rec: 09/01/21 18:16 [facility] [id number]) Gym Equipment Shuttle Balance 1 Details red clips Comments fwd & side : WBOS & NBOS fwd : staggered stance Therapeutic Exercises Supine Exercises stretch Supine Exercise Name HS stretch Side bilateral Reps/Minutes [id number] bridge Side bilateral Reps/Minutes 10x5 sec Standing Exercises wall posture Standing Exercise Name w/shoulder ext Side bilateral Reps/Minutes 1 min DF Standing Exercise Name alt w/cues for posture Side bilateral Reps/Minutes 2x15 hip flexor Standing Exercise Name stretch Side bilateral Reps/Minutes 1 min ea Neuro Re-Education Treatment Balance Activities 5 Details rail prn Comments 1. standing balnce on bosu 2. side step ups lat bosu w/ braun for feet for big steps down x12 B rail 3. fwd step up x10 B rail 4 Details toe taps B 16 in step Reps/Duration 15B Comments cues posture PT-OP-T Assessment and Plan Start: 06/24/21 07:50 Freq: Status: Active Protocol: Document 09/01/21 15:06 [facility] (Rec: 09/01/21 18:16 [facility] [id number]) Physical Therapy Assessment Goals walking Impairment 1017 back fatigue at 2.5 min starting and starting w/dec R stance time & lat lean Short Term Goal (STG) Pt will improve 6 min walk distance to at least 1300ft to show improved activity tolerance w/no more than minor back fatigue noted until the end. 07/29-improved STG Duration 07/24/21 Halfway Goal (LTG) Pt will be able to walk 1/2 mile without back fatigue or body fatigue safely w/ w/o LOB or need to lay down after . LTG Duration 09/22/21 strength Short Term Goal (STG) Pt will be indep w/HEP STG Duration achieved-progressing as able Halfway Goal (LTG) Pt will improve LE strength to at least 4+/5 in all planes to show improved hip and LE staiblity in order to allow pt to help w/household tasks w/o significant fatigue and/or pain. 07/29-improved LTG Duration 09/22/21 sit to stands Impairment 7 sit to stands for 30 sec; 5x sit to stand 21 sec Short Term Goal (STG) Pt will improve 5x sit to stand to with in 13 sec to improve funtional ability. 07/29-no change STG Duration 08/17/21 Halfway Goal (LTG) Pt will score at least 11 sit to stands in 30 sec to show dec fall risk and improved strength. LTG Duration 09/22/21 balance Short Term Goal (STG) Pt will be able to do SLS 5 sec B 07/29-minor improvement R STG Duration 08/23/21 Halfway Goal (LTG) Pt will score at least 25/30 on FGA and 22/24 on DGI to show low fall risk. 07/29-DGI :FGA1/30 LTG Duration 09/22 Assessment Summary Assessment HEP was reviewed for pt and discussed improtance of cont exercises. was present and was educated on how to work on cueing pt as needed. pt did overall well w/balance today Physical Therapy Plan Frequency and Duration Frequency of Treatment 1-2x/week Duration of Treatment 3 months Plan of Care Start Date 06/25/21 Plan of Care End Date 09/22/21 Next Visit Focus/Plan Next Note Type Treatment Note Next Visit Plan in pool: work on glute and core strengthening
--- NOTE | 2021-09-10 14:42 | PT.OTN ---
Current Diagnoses Mild cognitive impairment, so stated (09/17/21) Spinal stenosis, lumbar region without neurogenic claudication (09/17/21) Difficulty in walking, not elsewhere classified (09/17/21) Other abnormalities of gait and mobility (09/17/21) Abnormal posture (09/17/21) Weakness (09/17/21) Physical Therapy Treatment Note PT-OP-A Visit Information Start: 06/24/21 07:50 Freq: Status: Active Protocol: Document 09/10/21 11:00 [facility] (Rec: 09/17/21 09:55 [facility] [id number]) Out-Patient Physical Therapy Visit Information Visit Information Visit Type Aquatic Treatment Note Visit Start Time 11:00 Visit Stop Time 11:45 Total Visit Minutes 45 Visit Number 02/18 PT-OP-B Current Condition Start: 06/24/21 07:50 Freq: Status: Active Protocol: Document 06/25/21 13:44 [facility] (Rec: 06/25/21 14:36 [facility] [id number]) Current Condition History of Current Condition Onset Date chronic w/worsened steadiness Current Complaints dec steadiness, LBP History of Current Condition reports pt and her along w/MD was concerned re: steadiness. He has an saba on [employer] taht says his seatdiness is low to very low. Recommendation was initially surgery for his LB but neurosurgeon said he wasn't a canidate for surgery. Surgeon recommended anti-inflammatory meds for flare ups. Dr. Rai recommended an anti- inflammatory diet and he has lost 22 lbs. He takes 1/2 a benadryl at 3 am when he wakes up and that helps. In Dec, his pain was so severe w/ cramps that his would have to put hot moist towels on legs. Pt has been manipulated by DO and that has helped a lot. His walking is more hunched over. He has LBP that gets worse w/bending & w/ lifting and daily activities. Pt can walk about 4 blocks ( to mailbox and 1 more further and back)but if he walks further than that it really drains him to fatigue and walk starts to look unsteady. Lifting laundry inc pain and helping around the house. When he was doing his exercises and doing legs side to side and his legs were shaking a lot and his DO was happy with this. Prior Treatments and Tests PT in past and DO treatment w/ good results MRI report:IMPRESSION: Multilevel degenerative disc disease and arthropathy resulting in varying degrees of central and foraminal stenosis stable from the prior exam, including severe L3-4 and moderate L2-3 central stenosis . Treatment Goals Patient/Caregiver Goals improve balance, improve gait pattern, improve posture, dec cane use, improve ability to walk further to be able to travel, improve back pain PT-OP-C Subjective Start: 06/24/21 07:50 Freq: Status: Active Protocol: Document 09/10/21 11:00 [facility] (Rec: 09/17/21 09:55 [facility] [id number]) OP-PT Subjective Patient Comments Patient Comments Excited and nervous to do aquatic therapy today. Used to swim and dive a lot, not sure how he well he will be able to do. PT-OP-D Balance Start: 06/24/21 07:50 Freq: Status: Active Protocol: Document 07/29/21 09:43 [facility] (Rec: 07/29/21 14:35 [facility] [id number]) Balance Tests Single Limb Standing Single Limb- Right 2 sec Single Limb- Left 2 sec PT-OP-E Functional Tests Start: 06/24/21 07:50 Freq: Status: Active Protocol: Document 07/29/21 09:43 [facility] (Rec: 07/29/21 14:35 [facility] [id number]) Functional Tests 6 Minute Walk Test Distance 1139ft Device Used none Comments no dec in foot clearance until last min; better posture but still slight fw 30 Second Sit to Stand Test Score 7 Dynamic Gait Index (DGI) Score 20/24 Five Times Sit to Stand Test Score 21sec Functional Gait Assessment Score 19/30 PT-OP-F Manual Assessment Start: 06/24/21 07:50 Freq: Status: Active Protocol: Document 06/25/21 13:44 [facility] (Rec: 06/25/21 14:36 [facility] [id number]) Manual Assessments Soft Tissue Assessment Soft Tissue Mobility Assessment tightness in QL & ES PT-OP-G Mobility & Gait Start: 06/24/21 07:50 Freq: Status: Active Protocol: Document 06/25/21 13:44 [facility] (Rec: 06/26/21 10:21 [facility] [id number]) OP Gait Assessment Comments Gait Comments pt amb fwd flexed and with inc time walking, has dec stance time on RLE, dec push off B and does do lat leaning B w/WB PT-OP-J Posture/Palpation/Skin Start: 06/24/21 07:50 Freq: Status: Active Protocol: Document 06/25/21 13:44 [facility] (Rec: 06/25/21 14:36 [facility] [id number]) Posture Evaluation Comments Posture Comments fwd flex trunk, inc kyphosis, fwd head PT-OP-M Strength Start: 06/24/21 07:50 Freq: Status: Active Protocol: Document 07/29/21 09:43 [facility] (Rec: 07/29/21 14:35 [facility] [id number]) Hip Strength Hip Manual Muscle Testing Right Flexion (L2) 4- Good- Extension (S1) 3+ Fair+ Abduction 4- Good- External Rotation 3 Fair Internal Rotation 4- Good- Left Flexion (L2) 4 Good Extension (S1) 3+ Fair+ Abduction 4- Good- External Rotation 4- Good- Internal Rotation 4 Good Knee Strength Knee Manual Muscle Testing Right Flexion (S2) 4+ Good+ Extension (L3) 4 Good Left Flexion (S2) 4+ Good+ Extension (L3) 4+ Good+ Ankle/Foot Strength Ankle and Foot Manual Muscle Testing Right Dorsiflexion (L4) 5 Normal Plantarflexion (S1) 5 Normal Left Dorsiflexion (L4) 5 Normal Plantarflexion (S1) 5 Normal Comments PF tested seated PT-OP-Q Treatments Start: 06/24/21 07:50 Freq: Status: Active Protocol: Document 09/01/21 15:06 [facility] (Rec: 09/01/21 18:16 [facility] [id number]) Gym Equipment Shuttle Balance 1 Details red clips Comments fwd & side : WBOS & NBOS fwd : staggered stance Therapeutic Exercises Supine Exercises stretch Supine Exercise Name HS stretch Side bilateral Reps/Minutes 3t74rid bridge Side bilateral Reps/Minutes 10x5 sec Standing Exercises wall posture Standing Exercise Name w/shoulder ext Side bilateral Reps/Minutes 1 min DF Standing Exercise Name alt w/cues for posture Side bilateral Reps/Minutes 2x15 hip flexor Standing Exercise Name stretch Side bilateral Reps/Minutes 1 min ea Neuro Re-Education Treatment Balance Activities 5 Details rail prn Comments 1. standing balnce on bosu 2. side step ups lat bosu w/ braun for feet for big steps down x12 B rail 3. fwd step up x10 B rail 4 Details toe taps B 16 in step Reps/Duration 15B Comments cues posture PT-OP-S Aquatic Treatment Start: 09/17/21 09:55 Freq: Status: Active Protocol: Document 09/10/21 11:00 [facility] (Rec: 09/17/21 14:41 [facility] [id number]) Aquatics Treatment Pool Entry/Exit Pool Entry/Exit Method Stairs Assistance Minimal Assistance Water Walking march Water Level Chest Level Level of Assistance Standby Assistance,Contact Guard Assistance,Verbal Cues fwd,bck,side Water Level Chest Level Level of Assistance Standby Assistance,Minimal Assistance,Verbal Cues [place] Activities Monroe Activities Bicycle,Running Equipment flotation belt Comments mod verbal and manual cues for neutral alignment; tendency to lean forward, arch back Swim Strokes Flutter Laps/Duration 20 sec x 2 Comments supine Crawl Laps/Duration 20 sec x 4 PT-OP-T Assessment and Plan Start: 06/24/21 07:50 Freq: Status: Active Protocol: Document 09/10/21 11:00 [facility] (Rec: 09/17/21 09:55 [facility] [id number]) Physical Therapy Assessment Goals walking Impairment 1017 back fatigue at 2.5 min starting and starting w/dec R stance time & lat lean Short Term Goal (STG) Pt will improve 6 min walk distance to at least 1300ft to show improved activity tolerance w/no more than minor back fatigue noted until the end. 07/29-improved STG Duration 07/24/21 Alf Goal (LTG) Pt will be able to walk 1/2 mile without back fatigue or body fatigue safely w/ w/o LOB or need to lay down after . LTG Duration 09/22/21 strength Short Term Goal (STG) Pt will be indep w/HEP STG Duration achieved-progressing as able Channel Rougher Goal (LTG) Pt will improve LE strength to at least 4+/5 in all planes to show improved hip and LE staiblity in order to allow pt to help w/household tasks w/o significant fatigue and/or pain. 07/29-improved LTG Duration 09/22/21 sit to stands Impairment 7 sit to stands for 30 sec; 5x sit to stand 21 sec Short Term Goal (STG) Pt will improve 5x sit to stand to with in 13 sec to improve funtional ability. 07/29-no change STG Duration 08/17/21 [place] Rougher Goal (LTG) Pt will score at least 11 sit to stands in 30 sec to show dec fall risk and improved strength. LTG Duration 09/22/21 balance Short Term Goal (STG) Pt will be able to do SLS 5 sec B 07/29-minor improvement R STG Duration 08/23/21 Alf Goal (LTG) Pt will score at least 25/30 on FGA and on DGI to show low fall risk. 07/29-DGI :FGA19/30 LTG Duration 09/22 Assessment Summary Assessment Good tolerance for first aquatic therapy session with emphasis on core strengthening , balance, swimming (required use of flotation, low endurance). Needed cues for head positioning to improve positioning modified prone and supine for swim activities, max 15 ft at a time before fatigue, min assist to regain vertical position. denied increase in back pain with aquatic therapy activities. Physical Therapy Plan Frequency and Duration Frequency of Treatment 1-2x/week Duration of Treatment 3 months Plan of Care Start Date 06/25/21 Plan of Care End Date 09/22/21 Next Visit Focus/Plan Next Note Type Treatment Note Next Visit Plan Assess response to first aquatic PT session, modify and progress as indicated with emphsis on strengthening, gait , strengthening, and flexbility. Establish independent aquatic exercise program.
--- NOTE | 2021-09-17 15:11 | PT.OTRE ---
Current Diagnoses Mild cognitive impairment, so stated (09/17/21) Spinal stenosis, lumbar region without neurogenic claudication (09/17/21) Difficulty in walking, not elsewhere classified (09/17/21) Other abnormalities of gait and mobility (09/17/21) Abnormal posture (09/17/21) Weakness (09/17/21) Past Medical History (Last Updated 09/05/21 @ 11:33 by Stewart Rai DO) Atrial fibrillation Bilateral finger numbness Central stenosis of spinal canal Cervical radiculopathy Cervical somatic dysfunction Cognitive decline Concussion Cranial somatic dysfunction Dizziness Fall (on) (from) other stairs and steps, sequela Fatigue (~11/23/19) Foot joint stiffness, bilateral Heart disease History of right hip replacement Hx of Achilles tendon repair Hx of umbilical hernia repair Low back pain 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 Lumbar foraminal stenosis Lumbar region somatic dysfunction Obstructive sleep apnea of adult Pelvic somatic dysfunction Sacral region somatic dysfunction Screening for prostate cancer Segmental and somatic dysfunction of abdomen and other regions Segmental and somatic dysfunction of rib cage Somatic dysfunction of lower extremity Squamous cell carcinoma, leg Stiff neck Thoracic region somatic dysfunction Surgical History (Last Reviewed 07/16/21 @ 09:09 by Aniceto Parada MD) History of right hip replacement Hx of Achilles tendon repair Hx of umbilical hernia repair Visit Care Team Role Provider Type Stewart Rai DO Family Provider Physician Primary Care Provider Specialty: Family Practice Address: [address] [place] [address], [id number] Email: DAYSI Arguello Attending Provider Non-Staff Referring Provider Specialty: Medical Address: [address] [place] [address], [id number] Email: Physical Therapy Re-Evaluation PT-OP-A Visit Information Start: 06/24/21 07:50 Freq: Status: Active Protocol: Document 09/17/21 14:43 KATINA (Rec: 09/17/21 15:11 SAK [id number]) Out-Patient Physical Therapy Visit Information Visit Information Visit Type Aquatic Treatment Note Visit Start Time 11:00 Visit Stop Time 11:45 Total Visit Minutes 45 Visit Number 03/21 PT-OP-B Current Condition Start: 06/24/21 07:50 Freq: Status: Active Protocol: Document 06/25/21 13:44 [facility] (Rec: 06/25/21 14:36 [facility] [id number]) Current Condition History of Current Condition Onset Date chronic w/worsened steadiness Current Complaints dec steadiness, LBP History of Current Condition reports pt and her along w/MD was concerned re: steadiness. He has an saba on [email or web address] taht says his seatdiness is low to very low. Recommendation was initially surgery for his LB but neurosurgeon said he wasn't a canidate for surgery. Surgeon recommended anti-inflammatory meds for flare ups. Dr. Rai recommended an anti- inflammatory diet and he has lost 22 lbs. He takes 1/2 a benadryl at 3 am when he wakes up and that helps. In Dec, his pain was so severe w/ cramps that his would have to put hot moist towels on legs. Pt has been manipulated by DO and that has helped a lot. His walking is more hunched over. He has LBP that gets worse w/bending & w/ lifting and daily activities. Pt can walk about 4 blocks ( to mailbox and 1 more further and back)but if he walks further than that it really drains him to fatigue and walk starts to look unsteady. Lifting laundry inc pain and helping around the house. When he was doing his exercises and doing legs side to side and his legs were shaking a lot and his DO was happy with this. Prior Treatments and Tests PT in past and DO treatment w/ good results MRI report:IMPRESSION: Multilevel degenerative disc disease and arthropathy resulting in varying degrees of central and foraminal stenosis stable from the prior exam, including severe L3-4 and moderate L2-3 central stenosis . Treatment Goals Patient/Caregiver Goals improve balance, improve gait pattern, improve posture, dec cane use, improve ability to walk further to be able to travel, improve back pain PT-OP-C Subjective Start: 06/24/21 07:50 Freq: Status: Active Protocol: Document 09/17/21 14:43 [facility] (Rec: 09/17/21 15:11 SAK [id number]) OP-PT Subjective Patient Comments Patient Comments Patient's reports patient 's back hurting more after first aquatic PT appointment and walking more bent over. Discussed what may have caused it and will modify treatment today cutting out any prone swim activities, emphasize core strengthening, LE strengthening, and gait. PT-OP-D Balance Start: 06/24/21 07:50 Freq: Status: Active Protocol: Document 07/29/21 09:43 [facility] (Rec: 07/29/21 14:35 [id number] Balance Tests Single Limb Standing Single Limb- Right 2 sec Single Limb- Left 2 sec PT-OP-E Functional Tests Start: 06/24/21 07:50 Freq: Status: Active Protocol: Document 07/29/21 09:43 [facility] (Rec: 07/29/21 14:35 [place] [id number]) Functional Tests 6 Minute Walk Test Distance 1139ft Device Used none Comments no dec in foot clearance until last min; better posture but still slight fw 30 Second Sit to Stand Test Score 7 Dynamic Gait Index (DGI) Score 20/24 Five Times Sit to Stand Test Score 21sec Functional Gait Assessment Score 19/30 PT-OP-F Manual Assessment Start: 06/24/21 07:50 Freq: Status: Active Protocol: Document 06/25/21 13:44 [facility] (Rec: 06/25/21 14:36 [id number] Manual Assessments Soft Tissue Assessment Soft Tissue Mobility Assessment tightness in QL & ES PT-OP-G Mobility & Gait Start: 06/24/21 07:50 Freq: Status: Active Protocol: Document 06/25/21 13:44 [facility] (Rec: 06/26/21 10:21 [facility] [id number]) OP Gait Assessment Comments Gait Comments pt amb fwd flexed and with inc time walking, has dec stance time on RLE, dec push off B and does do lat leaning B w/WB PT-OP-J Posture/Palpation/Skin Start: 06/24/21 07:50 Freq: Status: Active Protocol: Document 06/25/21 13:44 [facility] (Rec: 06/25/21 14:36 [id number]) Posture Evaluation Comments Posture Comments fwd flex trunk, inc kyphosis, fwd head PT-OP-M Strength Start: 06/24/21 07:50 Freq: Status: Active Protocol: Document 07/29/21 09:43 [facility] (Rec: 07/29/21 14:35 [id number]) Hip Strength Hip Manual Muscle Testing Right Flexion (L2) 4- Good- Extension (S1) 3+ Fair+ Abduction 4- Good- External Rotation 3 Fair Internal Rotation 4- Good- Left Flexion (L2) 4 Good Extension (S1) 3+ Fair+ Abduction 4- Good- External Rotation 4- Good- Internal Rotation 4 Good Knee Strength Knee Manual Muscle Testing Right Flexion (S2) 4+ Good+ Extension (L3) 4 Good Left Flexion (S2) 4+ Good+ Extension (L3) 4+ Good+ Ankle/Foot Strength Ankle and Foot Manual Muscle Testing Right Dorsiflexion (L4) 5 Normal Plantarflexion (S1) 5 Normal Left Dorsiflexion (L4) 5 Normal Plantarflexion (S1) 5 Normal Comments PF tested seated PT-OP-Q Treatments Start: 06/24/21 07:50 Freq: Status: Active Protocol: Document 09/01/21 15:06 [facility] (Rec: 09/01/21 18:16 [facility] [id number]) Gym Equipment Shuttle Balance 1 Details red clips Comments fwd & side : WBOS & NBOS fwd : staggered stance Therapeutic Exercises Supine Exercises stretch Supine Exercise Name HS stretch Side bilateral Reps/Minutes [id number] bridge Side bilateral Reps/Minutes 10x5 sec Standing Exercises wall posture Standing Exercise Name w/shoulder ext Side bilateral Reps/Minutes 1 min DF Standing Exercise Name alt w/cues for posture Side bilateral Reps/Minutes 2x15 hip flexor Standing Exercise Name stretch Side bilateral Reps/Minutes 1 min ea Neuro Re-Education Treatment Balance Activities 5 Details rail prn Comments 1. standing balnce on bosu 2. side step ups lat bosu w/ braun for feet for big steps down x12 B rail 3. fwd step up x10 B rail 4 Details toe taps B 16 in step Reps/Duration 15B Comments cues posture PT-OP-T Assessment and Plan Start: 06/24/21 07:50 Freq: Status: Active Protocol: Document 09/17/21 14:43 SAK (Rec: 09/17/21 15:11 SAK [id number]) Physical Therapy Assessment Goals walking Impairment 1017 back fatigue at 2.5 min starting and starting w/dec R stance time & lat lean Short Term Goal (STG) Pt will improve 6 min walk distance to at least 1300ft to show improved activity tolerance w/no more than minor back fatigue noted until the end. 07/29-improved 09/17/21: NT STG Duration 10/06/21 Fdc Goal (LTG) Pt will be able to walk 1/2 mile without back fatigue or body fatigue safely w/ w/o LOB or need to lay down after . 09/17/21: can walk 1/4 to 1/3 mile, close supervision or CGA for safety LTG Duration 10/22/21 strength Short Term Goal (STG) Pt will be indep w/HEP STG Duration achieved-progressing as able Fdc Goal (LTG) Pt will improve LE strength to at least 4+/5 in all planes to show improved hip and LE staiblity in order to allow pt to help w/household tasks w/o significant fatigue and/or pain. 07/29-improved 09/17/21: goal progress 4/5 except hip extension 4-/5 LTG Duration 10/22/21 sit to stands Impairment 7 sit to stands for 30 sec; 5x sit to stand 21 sec Short Term Goal (STG) Pt will improve 5x sit to stand to with in 13 sec to improve funtional ability. 07/29-no change STG Duration 10/06/21 Fdc Goal (LTG) Pt will score at least 11 sit to stands in 30 sec to show dec fall risk and improved strength. 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 07/29-DGI 20/24:FGA19/30 09/17/21: DGI 21/24, FGA 21/30, improved but still mod fall risk. LTG Duration 10/22/21 Progress Towards Goals Progress Towards Goals Progressing Toward Goals Assessment Summary Assessment Modified aquatic PT session today; no swimming or deep water walk. Emphasized vertical exercise in chest level water with emphasis on upright posture and core stabilization; mod cues required throughout the session. Ended with deep water hang with 5# kingsley LE's for spinal decompression.Goal progress in all areas, though slow due to age, medical comorbidities including congitive deficits. very involved and receptive, though reports at times patient unwilling to do HEP. 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 Feel aquatic setting is best place for him to be able to achieve his therapy goals. Physical Therapy Plan Frequency and Duration Frequency of Treatment 5 visits Duration of Treatment 5 weeks Plan of Care Start Date 09/17/21 Plan of Care End Date 10/22/21 Therapeutic Interventions Therapeutic Interventions Aquatic Therapy,Balance Training,Gait Training,Home Exercise Program,Joint Mobilizations,Manual Therapy, Neuromuscular Re-education, Patient/Caregiver Education, Self-Care/Home Management,Soft Tissue Mobilization,Taping, Therapeutic Activities, Therapeutic Exercises Modalities Cold Pack/Ice Massage,Electric Stimulation,Hot Packs, Infrared Therapy,Ultrasound Next Visit Focus/Plan Next Note Type Treatment Note Next Visit Plan Assess response to modfied session today. Do caregiver education with at least one aquatic PT session. Progress toward independent aquatic exercise program. 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
--- NOTE | 2021-09-17 15:12 | PT.OPPOC ---
Physical, Occupational & Speech Therapy At [facility] Current Diagnoses Mild cognitive impairment, so stated (09/17/21) Spinal stenosis, lumbar region without neurogenic claudication (09/17/21) Difficulty in walking, not elsewhere classified (09/17/21) Other abnormalities of gait and mobility (09/17/21) Abnormal posture (09/17/21) Weakness (09/17/21) Visit Care Team Role Provider Type Stewart Rai DO Family Provider Physician Primary Care Provider Specialty: Family Practice Address: [address] [place] [address], [id number] Email: DAYSI Arguello Attending Provider Non-Staff Referring Provider Specialty: Medical Address: [address] [place] [address], [id number] Email: Plan Of Care PT-OP-T Assessment and Plan Start: 06/24/21 07:50 Freq: Status: Active Protocol: Document 09/17/21 14:43 SAK (Rec: 09/17/21 15:11 [facility] [id number]) Physical Therapy Assessment Goals walking Impairment 1017 back fatigue at 2.5 min starting and starting w/dec R stance time & lat lean Short Term Goal (STG) Pt will improve 6 min walk distance to at least 1300ft to show improved activity tolerance w/no more than minor back fatigue noted until the end. 07/29-improved 09/17/21: NT STG Duration 10/06/[address] [employer] [employer] [employer] Goal (LTG) Pt will be able to walk 1/2 mile without back fatigue or body fatigue safely w/ w/o LOB or need to lay down after . 09/17/21: can walk 1/4 to 1/3 mile, close supervision or CGA for safety LTG Duration 10/22/21 strength Short Term Goal (STG) Pt will be indep w/HEP STG Duration achieved-progressing as able Fpc Goal (LTG) Pt will improve LE strength to at least 4+/5 in all planes to show improved hip and LE staiblity in order to allow pt to help w/household tasks w/o significant fatigue and/or pain. 07/29-improved 09/17/21: goal progress 4/5 except hip extension 4-/5 LTG Duration 10/22/21 sit to stands Impairment 7 sit to stands for 30 sec; 5x sit to stand 21 sec Short Term Goal (STG) Pt will improve 5x sit to stand to with in 13 sec to improve funtional ability. 07/29-no change STG Duration 10/06/21 Fpc Goal (LTG) Pt will score at least 11 sit to stands in 30 sec to show dec fall risk and improved strength. 09/17/21: scored 9x, improved LTG Duration 10/22/21 balance Short Term Goal (STG) Pt will be able to do SLS 5 sec B 07/29-minor improvement R 09/17/21: 2-3 sec kingsley STG Duration 09/17/21 [employer] [employer] [address] Goal (LTG) Pt will score at least 25/30 on FGA and 22/ on DGI to show low fall risk. 07/29-DGI :FGA19/30 09/17/21: DGI , FGA , improved but still mod fall risk. LTG Duration 10/22/21 Progress Towards Goals Progress Towards Goals Progressing Toward Goals Assessment Summary Assessment Modified aquatic PT session today; no swimming or deep water walk. Emphasized vertical exercise in chest level water with emphasis on upright posture and core stabilization; mod cues required throughout the session. Ended with deep water hang with 5# kingsley LE's for spinal decompression.Goal progress in all areas, though slow due to age, medical comorbidities including congitive deficits. very involved and receptive, though reports at times patient unwilling to do HEP. 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 Feel aquatic setting is best place for him to be able to achieve his therapy goals. Physical Therapy Plan Frequency and Duration Frequency of Treatment 5 visits Duration of Treatment 5 weeks Plan of Care Start Date 09/17/21 Plan of Care End Date 10/22/21 Therapeutic Interventions Therapeutic Interventions Aquatic Therapy,Balance Training,Gait Training,Home Exercise Program,Joint Mobilizations,Manual Therapy, Neuromuscular Re-education, Patient/Caregiver Education, Self-Care/Home Management,Soft Tissue Mobilization,Taping, Therapeutic Activities, Therapeutic Exercises Modalities Cold Pack/Ice Massage,Electric Stimulation,Hot Packs, Infrared Therapy,Ultrasound Next Visit Focus/Plan Next Note Type Treatment Note Next Visit Plan Assess response to modfied session today. Do caregiver education with at least one aquatic PT session. Progress toward independent aquatic exercise program. 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 Plan of Care Dates Plan of Care Start Date 09/17/21 Plan of Care End Date 10/22/21 Electronically Signed by: Naima Lazaro, PT 09/17/21 1799 If you are in agreement with this Plan of Care, please return a signed and dated copy. I have reviewed this Plan of Care and certify that the skilled therapy services above are required to meet the patient?s needs. Physician Signature Date Printed Name and Credentials Clinical Instructor Signature Printed Name and Credentials
--- NOTE | 2021-09-24 14:14 | PT.OTN ---
Current Diagnoses Mild cognitive impairment, so stated (09/24/21) Spinal stenosis, lumbar region without neurogenic claudication (09/24/21) Difficulty in walking, not elsewhere classified (09/24/21) Other abnormalities of gait and mobility (09/24/21) Abnormal posture (09/24/21) Weakness (09/24/21) Physical Therapy Treatment Note PT-OP-A Visit Information Start: 06/24/21 07:50 Freq: Status: Active Protocol: Document 09/24/21 14:02 [facility] (Rec: 09/24/21 14:14 [facility] [id number]) Out-Patient Physical Therapy Visit Information Visit Information Visit Type Aquatic Treatment Note Visit Start Time 11:00 Visit Stop Time 11:45 Total Visit Minutes 45 Visit Number 03/21 PT-OP-B Current Condition Start: 06/24/21 07:50 Freq: Status: Active Protocol: Document 06/25/21 13:44 [facility] (Rec: 06/25/21 14:36 [facility] [id number]) Current Condition History of Current Condition Onset Date chronic w/worsened steadiness Current Complaints dec steadiness, LBP History of Current Condition reports pt and her along w/MD was concerned re: steadiness. He has an saba on [employer] taht says his seatdiness is low to very low. Recommendation was initially surgery for his LB but neurosurgeon said he wasn't a canidate for surgery. Surgeon recommended anti-inflammatory meds for flare ups. Dr. Rai recommended an anti- inflammatory diet and he has lost 22 lbs. He takes 1/2 a benadryl at 3 am when he wakes up and that helps. In Dec, his pain was so severe w/ cramps that his would have to put hot moist towels on legs. Pt has been manipulated by DO and that has helped a lot. His walking is more hunched over. He has LBP that gets worse w/bending & w/ lifting and daily activities. Pt can walk about 4 blocks ( to mailbox and 1 more further and back)but if he walks further than that it really drains him to fatigue and walk starts to look unsteady. Lifting laundry inc pain and helping around the house. When he was doing his exercises and doing legs side to side and his legs were shaking a lot and his DO was happy with this. Prior Treatments and Tests PT in past and DO treatment w/ good results MRI report:IMPRESSION: Multilevel degenerative disc disease and arthropathy resulting in varying degrees of central and foraminal stenosis stable from the prior exam, including severe L3-4 and moderate L2-3 central stenosis . Treatment Goals Patient/Caregiver Goals improve balance, improve gait pattern, improve posture, dec cane use, improve ability to walk further to be able to travel, improve back pain PT-OP-C Subjective Start: 06/24/21 07:50 Freq: Status: Active Protocol: Document 09/24/21 14:02 [facility] (Rec: 09/24/21 14:14 [facility] [id number]) OP-PT Subjective Patient Comments Patient Comments Patient's again reporting he initially felt good after last PT treatment, but then seemed to have more pain and more difficulty ambulating with weakness right LE. Asking if we should continue after today if again more pain after today's treatment. stated she just can't tolerate getting in the water with her ; just too cold for her. If he comes on his own she will watch from the deck as he is very comfortable in the water. PT-OP-D Balance Start: 06/24/21 07:50 Freq: Status: Active Protocol: Document 07/29/21 09:43 [facility] (Rec: 07/29/21 14:35 [facility] [id number]) Balance Tests Single Limb Standing Single Limb- Right 2 sec Single Limb- Left 2 sec PT-OP-E Functional Tests Start: 06/24/21 07:50 Freq: Status: Active Protocol: Document 07/29/21 09:43 [facility] (Rec: 07/29/21 14:35 [facility] [id number]) Functional Tests 6 Minute Walk Test Distance 1139ft Device Used none Comments no dec in foot clearance until last min; better posture but still slight fw 30 Second Sit to Stand Test Score 7 Dynamic Gait Index (DGI) Score 20/24 Five Times Sit to Stand Test Score 21sec Functional Gait Assessment Score 19/30 PT-OP-F Manual Assessment Start: 06/24/21 07:50 Freq: Status: Active Protocol: Document 06/25/21 13:44 [facility] (Rec: 06/25/21 14:36 [facility] [id number]) Manual Assessments Soft Tissue Assessment Soft Tissue Mobility Assessment tightness in QL & ES PT-OP-G Mobility & Gait Start: 06/24/21 07:50 Freq: Status: Active Protocol: Document 06/25/21 13:44 [facility] (Rec: 06/26/21 10:21 [facility] [id number]) OP Gait Assessment Comments Gait Comments pt amb fwd flexed and with inc time walking, has dec stance time on RLE, dec push off B and does do lat leaning B w/WB PT-OP-J Posture/Palpation/Skin Start: 06/24/21 07:50 Freq: Status: Active Protocol: Document 06/25/21 13:44 [facility] (Rec: 06/25/21 14:36 [facility] [id number]) Posture Evaluation Comments Posture Comments fwd flex trunk, inc kyphosis, fwd head PT-OP-M Strength Start: 06/24/21 07:50 Freq: Status: Active Protocol: Document 07/29/21 09:43 [facility] (Rec: 07/29/21 14:35 [facility] [id number]) Hip Strength Hip Manual Muscle Testing Right Flexion (L2) 4- Good- Extension (S1) 3+ Fair+ Abduction 4- Good- External Rotation 3 Fair Internal Rotation 4- Good- Left Flexion (L2) 4 Good Extension (S1) 3+ Fair+ Abduction 4- Good- External Rotation 4- Good- Internal Rotation 4 Good Knee Strength Knee Manual Muscle Testing Right Flexion (S2) 4+ Good+ Extension (L3) 4 Good Left Flexion (S2) 4+ Good+ Extension (L3) 4+ Good+ Ankle/Foot Strength Ankle and Foot Manual Muscle Testing Right Dorsiflexion (L4) 5 Normal Plantarflexion (S1) 5 Normal Left Dorsiflexion (L4) 5 Normal Plantarflexion (S1) 5 Normal Comments PF tested seated PT-OP-Q Treatments Start: 06/24/21 07:50 Freq: Status: Active Protocol: Document 09/01/21 15:06 [facility] (Rec: 09/01/21 18:16 [facility] [id number]) Gym Equipment Shuttle Balance 1 Details red clips Comments fwd & side : WBOS & NBOS fwd : staggered stance Therapeutic Exercises Supine Exercises stretch Supine Exercise Name HS stretch Side bilateral Reps/Minutes [id number] bridge Side bilateral Reps/Minutes 10x5 sec Standing Exercises wall posture Standing Exercise Name w/shoulder ext Side bilateral Reps/Minutes 1 min DF Standing Exercise Name alt w/cues for posture Side bilateral Reps/Minutes 2x15 hip flexor Standing Exercise Name stretch Side bilateral Reps/Minutes 1 min ea Neuro Re-Education Treatment Balance Activities 5 Details rail prn Comments 1. standing balnce on bosu 2. side step ups lat bosu w/ braun for feet for big steps down x12 B rail 3. fwd step up x10 B rail 4 Details toe taps B 16 in step Reps/Duration 15B Comments cues posture PT-OP-S Aquatic Treatment Start: 09/17/21 09:55 Freq: Status: Active Protocol: Document 09/24/21 14:02 [facility] (Rec: 09/24/21 14:14 [facility] [id number]) Aquatics Treatment Pool Entry/Exit Pool Entry/Exit Method Stairs Assistance Standby Assistance Water Walking march Water Level Chest Level Level of Assistance Standby Assistance,Verbal Cues Comments cues for postural alignment ( balancing bowler on head), core stab fwd,bck,side Water Level Chest Level Level of Assistance Standby Assistance,Verbal Cues Comments cues for postural alignment, core stab Lower Extremity Exercises 90/90 knee ext Reps/Duration 20x ea Comments standing at wall, mod cues for upright posture and LE alignment Lower Extremity Stretches hamstring Details also IT band Body Position Standing Water Level Chest Level Equipment Small Noodle Reps/Duration 2x30 Comments mod assist for set-up and correct alignment Upper Extremity Exercises UE pull downs Reps/Duration 10x Comments lateral and fwd, cues for posture and core stab Spinal Exercises wall squat core stab Body Position Standing Comments away from wall, cues for posture and core stab [place] Activities [place] Activities Bicycle,Running Other Activities walk Equipment small noodle in front Comments moderate verbal and manual cues for postural alignment improved with noodle for flotation PT-OP-T Assessment and Plan Start: 06/24/21 07:50 Freq: Status: Active Protocol: Document 09/24/21 14:02 [facility] (Rec: 09/24/21 14:14 [facility] [id number]) Physical Therapy Assessment Goals walking Impairment 1017 back fatigue at 2.5 min starting and starting w/dec R stance time & lat lean Short Term Goal (STG) Pt will improve 6 min walk distance to at least 1300ft to show improved activity tolerance w/no more than minor back fatigue noted until the end. 07/29-improved 09/17/21: NT STG Duration 10/06/21 Operational Risk Manager Goal (LTG) Pt will be able to walk 1/2 mile without back fatigue or body fatigue safely w/ w/o LOB or need to lay down after . 09/17/21: can walk 1/4 to 1/3 mile, close supervision or CGA for safety LTG Duration 10/22/21 strength Short Term Goal (STG) Pt will be indep w/HEP STG Duration achieved-progressing as able Operational Risk Manager Goal (LTG) Pt will improve LE strength to at least 4+/5 in all planes to show improved hip and LE staiblity in order to allow pt to help w/household tasks w/o significant fatigue and/or pain. 07/29-improved 09/17/21: goal progress 4/5 except hip extension 4-/5 LTG Duration 10/22/21 sit to stands Impairment 7 sit to stands for 30 sec; 5x sit to stand 21 sec Short Term Goal (STG) Pt will improve 5x sit to stand to with in 13 sec to improve funtional ability. 07/29-no change STG Duration 10/06/21 Operational Risk Manager Goal (LTG) Pt will score at least 11 sit to stands in 30 sec to show dec fall risk and improved strength. 09/17/21: scored 9x, improved LTG Duration 10/22/21 balance Short Term Goal (STG) Pt will be able to do SLS 5 sec B 07/29-minor improvement R 09/17/21: 2-3 sec kingsley STG Duration 09/17/21 [facility] Goal (LTG) Pt will score at least 25/30 on FGA and 22/24 on DGI to show low fall risk. 07/29-DGI 20/:FGA19/30 09/17/21: DGI 21/24, FGA 21/30, improved but still mod fall risk. LTG Duration 10/22/21 Progress Towards Goals Progress Towards Goals Progressing Toward Goals Assessment Summary Assessment Further modification of aquatic therapy session today, better alignment in deep water with use of noodle in front, and noting improved postural alignment in shallow especially with cues for hat on head and further use of wall for referrence. unable to get in the water for training but communicated with her throughout the therapy session regarding what activities we are working on and will issue written instructions. Feel patient needs 2 further aquatic PT sessions as we continue to modify activities to find best tolerated therapeutic aquatic exercises and intensity that don't increase his pain. Physical Therapy Plan Frequency and Duration Frequency of Treatment 5 visits Duration of Treatment 5 weeks Plan of Care Start Date 09/17/21 Plan of Care End Date 10/22/21 Therapeutic Interventions Therapeutic Interventions Aquatic Therapy,Balance Training,Gait Training,Home Exercise Program,Joint Mobilizations,Manual Therapy, Neuromuscular Re-education, Patient/Caregiver Education, Self-Care/Home Management,Soft Tissue Mobilization,Taping, Therapeutic Activities, Therapeutic Exercises Modalities Cold Pack/Ice Massage,Electric Stimulation,Hot Packs, Infrared Therapy,Ultrasound Next Visit Focus/Plan Next Note Type Treatment Note Next Visit Plan Assess response to last PT session, further modifications as indicated to identify best tolerated activities and intensity.
--- NOTE | 2021-10-01 17:51 | PT.OTN ---
Current Diagnoses Mild cognitive impairment, so stated (10/01/21) Spinal stenosis, lumbar region without neurogenic claudication (10/01/21) Difficulty in walking, not elsewhere classified (10/01/21) Other abnormalities of gait and mobility (10/01/21) Abnormal posture (10/01/21) Weakness (10/01/21) Physical Therapy Treatment Note PT-OP-A Visit Information Start: 06/24/21 07:50 Freq: Status: Active Protocol: Document 10/01/21 17:37 [facility] (Rec: 10/01/21 17:51 [facility] [id number]) Out-Patient Physical Therapy Visit Information Visit Information Visit Type Aquatic Treatment Note Visit Start Time 11:00 Visit Stop Time 11:45 Total Visit Minutes 45 Visit Number 05/11 PT-OP-B Current Condition Start: 06/24/21 07:50 Freq: Status: Active Protocol: Document 06/25/21 13:44 [facility] (Rec: 06/25/21 14:36 [facility] [id number]) Current Condition History of Current Condition Onset Date chronic w/worsened steadiness Current Complaints dec steadiness, LBP History of Current Condition reports pt and her along w/MD was concerned re: steadiness. He has an saba on [employer] taht says his seatdiness is low to very low. Recommendation was initially surgery for his LB but neurosurgeon said he wasn't a canidate for surgery. Surgeon recommended anti-inflammatory meds for flare ups. Dr. Rai recommended an anti- inflammatory diet and he has lost 22 lbs. He takes 1/2 a benadryl at 3 am when he wakes up and that helps. In Dec, his pain was so severe w/ cramps that his would have to put hot moist towels on legs. Pt has been manipulated by DO and that has helped a lot. His walking is more hunched over. He has LBP that gets worse w/bending & w/ lifting and daily activities. Pt can walk about 4 blocks ( to mailbox and 1 more further and back)but if he walks further than that it really drains him to fatigue and walk starts to look unsteady. Lifting laundry inc pain and helping around the house. When he was doing his exercises and doing legs side to side and his legs were shaking a lot and his DO was happy with this. Prior Treatments and Tests PT in past and DO treatment w/ good results MRI report:IMPRESSION: Multilevel degenerative disc disease and arthropathy resulting in varying degrees of central and foraminal stenosis stable from the prior exam, including severe L3-4 and moderate L2-3 central stenosis . Treatment Goals Patient/Caregiver Goals improve balance, improve gait pattern, improve posture, dec cane use, improve ability to walk further to be able to travel, improve back pain PT-OP-C Subjective Start: 06/24/21 07:50 Freq: Status: Active Protocol: Document 10/01/21 17:37 [facility] (Rec: 10/01/21 17:51 [facility] [id number]) OP-PT Subjective Patient Comments Patient Comments Елена reports patient tolerated last session better, has slightly less pain and is showing some improved posture . They plan to attend last PT visit, then may consider having patient do aquatic exercise with personal lines insurance agent /exercise instrsuctor. PT-OP-D Balance Start: 06/24/21 07:50 Freq: Status: Active Protocol: Document 07/29/21 09:43 [facility] (Rec: 07/29/21 14:35 [facility] [id number]) Balance Tests Single Limb Standing Single Limb- Right 2 sec Single Limb- Left 2 sec PT-OP-E Functional Tests Start: 06/24/21 07:50 Freq: Status: Active Protocol: Document 07/29/21 09:43 [facility] (Rec: 07/29/21 14:35 [facility] [id number]) Functional Tests 6 Minute Walk Test Distance 1139ft Device Used none Comments no dec in foot clearance until last min; better posture but still slight fw 30 Second Sit to Stand Test Score 7 Dynamic Gait Index (DGI) Score 20/24 Five Times Sit to Stand Test Score 21sec Functional Gait Assessment Score 19/30 PT-OP-F Manual Assessment Start: 06/24/21 07:50 Freq: Status: Active Protocol: Document 06/25/21 13:44 [facility] (Rec: 06/25/21 14:36 [facility] [id number]) Manual Assessments Soft Tissue Assessment Soft Tissue Mobility Assessment tightness in QL & ES PT-OP-G Mobility & Gait Start: 06/24/21 07:50 Freq: Status: Active Protocol: Document 06/25/21 13:44 [facility] (Rec: 06/26/21 10:21 [facility] [id number]) OP Gait Assessment Comments Gait Comments pt amb fwd flexed and with inc time walking, has dec stance time on RLE, dec push off B and does do lat leaning B w/WB PT-OP-J Posture/Palpation/Skin Start: 06/24/21 07:50 Freq: Status: Active Protocol: Document 06/25/21 13:44 [facility] (Rec: 06/25/21 14:36 [facility] [id number]) Posture Evaluation Comments Posture Comments fwd flex trunk, inc kyphosis, fwd head PT-OP-M Strength Start: 06/24/21 07:50 Freq: Status: Active Protocol: Document 07/29/21 09:43 [facility] (Rec: 07/29/21 [id number] Strength Hip Manual Muscle Testing Right Flexion (L2) 4- Good- Extension (S1) 3+ Fair+ Abduction 4- Good- External Rotation 3 Fair Internal Rotation 4- Good- Left Flexion (L2) 4 Good Extension (S1) 3+ Fair+ Abduction 4- Good- External Rotation 4- Good- Internal Rotation 4 Good Knee Strength Knee Manual Muscle Testing Right Flexion (S2) 4+ Good+ Extension (L3) 4 Good Left Flexion (S2) 4+ Good+ Extension (L3) 4+ Good+ Ankle/Foot Strength Ankle and Foot Manual Muscle Testing Right Dorsiflexion (L4) 5 Normal Plantarflexion (S1) 5 Normal Left Dorsiflexion (L4) 5 Normal Plantarflexion (S1) 5 Normal Comments PF tested seated PT-OP-Q Treatments Start: 06/24/21 07:50 Freq: Status: Active Protocol: Document 09/01/21 15:06 [facility] (Rec: 09/01/21 18:16 [facility] [id number]) Gym Equipment Shuttle Balance 1 Details red clips Comments fwd & side : WBOS & NBOS fwd : staggered stance Therapeutic Exercises Supine Exercises stretch Supine Exercise Name HS stretch Side bilateral Reps/Minutes [id number] bridge Side bilateral Reps/Minutes 10x5 sec Standing Exercises wall posture Standing Exercise Name w/shoulder ext Side bilateral Reps/Minutes 1 min DF Standing Exercise Name alt w/cues for posture Side bilateral Reps/Minutes 2x15 hip flexor Standing Exercise Name stretch Side bilateral Reps/Minutes 1 min ea Neuro Re-Education Treatment Balance Activities 5 Details rail prn Comments 1. standing balnce on bosu 2. side step ups lat bosu w/ braun for feet for big steps down x12 B rail 3. fwd step up x10 B rail 4 Details toe taps B 16 in step Reps/Duration 15B Comments cues posture PT-OP-S Aquatic Treatment Start: 09/17/21 09:55 Freq: Status: Active Protocol: Document 10/01/21 17:37 [facility] (Rec: 10/01/21 17:51 [facility] [id number]) Aquatics Treatment Pool Entry/Exit Pool Entry/Exit Method Stairs Assistance Standby Assistance Water Walking july Water Level Chest Level Level of Assistance Standby Assistance,Verbal Cues Comments cues for postural alignment ( balancing bowler on head), core stab fwd,bck,side Water Level Chest Level Level of Assistance Standby Assistance,Verbal Cues Comments cues for postural alignment, core stab Lower Extremity Exercises step ups Equipment 8 boxes Reps/Duration 12x 90/90 knee ext Reps/Duration 20x ea Comments standing at wall, mod cues for upright posture and LE alignment circles Body Position Standing Water Level Chest Level Reps/Duration 10x Comments cues for postural alignment, core stab 4 way hip Body Position Standing Water Level Chest Level Reps/Duration 15x Comments cues for upright posture, core stab Lower Extremity Stretches hamstring Details also IT band Body Position Standing Water Level Chest Level Equipment Small Noodle Reps/Duration 2x30 Comments mod assist for set-up and correct alignment Upper Extremity Exercises UE pull downs Details fwd,lat Equipment long barbell Reps/Duration 10x Comments lateral and fwd, cues for posture and core stab Spinal Exercises wall squat core stab Body Position Standing Comments away from wall, cues for posture and core stab Balance SLS Reps/Duration 5x ea side PT-OP-T Assessment and Plan Start: 06/24/21 07:50 Freq: Status: Active Protocol: Document 10/01/21 17:37 [facility] (Rec: 10/01/21 17:51 [facility] [id number]) Physical Therapy Assessment Goals walking Impairment 1017 back fatigue at 2.5 min starting and starting w/dec R stance time & lat lean Short Term Goal (STG) Pt will improve 6 min walk distance to at least 1300ft to show improved activity tolerance w/no more than minor back fatigue noted until the end. 07/29-improved 09/17/21: NT STG Duration 5/30/22 Long-Term Goal (LTG) Pt will be able to walk 1/2 mile without back fatigue or body fatigue safely w/ w/o LOB or need to lay down after . 09/17/21: can walk 1/4 to 1/3 mile, close supervision or CGA for safety LTG Duration 10/22/21 strength Short Term Goal (STG) Pt will be indep w/HEP STG Duration achieved-progressing as able [employer] Machine Operator Goal (LTG) Pt will improve LE strength to at least 4+/5 in all planes to show improved hip and LE staiblity in order to allow pt to help w/household tasks w/o significant fatigue and/or pain. 07/29-improved 09/17/21: goal progress 4/5 except hip extension 4-/ LTG Duration 10/22/21 sit to stands Impairment 7 sit to stands for 30 sec; 5x sit to stand 21 sec Short Term Goal (STG) Pt will improve 5x sit to stand to with in 13 sec to improve funtional ability. 07/29-no change STG Duration 10/06/21 Long-Term Goal (LTG) Pt will score at least 11 sit to stands in 30 sec to show dec fall risk and improved strength. 09/17/21: scored 9x, improved LTG Duration 10/22/21 balance Short Term Goal (STG) Pt will be able to do SLS 5 sec B 07/29-minor improvement R 09/17/21: 2-3 sec kingsley STG Duration 09/17/21 Long-Term Goal (LTG) Pt will score at least 25/30 on FGA and 22/24 on DGI to show low fall risk. 07/29-DGI 20/24:FGA19/30 09/17/21: DGI 21/24, FGA 21/30, improved but still mod fall risk. LTG Duration 10/22/21 Progress Towards Goals Progress Towards Goals Progressing Toward Goals Assessment Summary Assessment Improved tolerance for aquatic therapy, improved balance from 1 sec to 6 sec right, 3 on left. Difficulty with step -ups, LOB x 2. Patient showing improved walking posture after PT. Physical Therapy Plan Frequency and Duration Frequency of Treatment 5 visits Duration of Treatment 5 weeks Plan of Care Start Date 09/17/21 Plan of Care End Date 10/22/21 Therapeutic Interventions Therapeutic Interventions Aquatic Therapy,Balance Training,Gait Training,Home Exercise Program,Joint Mobilizations,Manual Therapy, Neuromuscular Re-education, Patient/Caregiver Education, Self-Care/Home Management,Soft Tissue Mobilization,Taping, Therapeutic Activities, Therapeutic Exercises Modalities Cold Pack/Ice Massage,Electric Stimulation,Hot Packs, Infrared Therapy,Ultrasound Next Visit Focus/Plan Next Note Type Treatment Note Next Visit Plan Issue written aquatic exercise program. Further deep water walking and all other aquatic exercise program review.
--- NOTE | 2021-10-13 18:04 | PT.OTN ---
Current Diagnoses Mild cognitive impairment, so stated (10/13/21) Spinal stenosis, lumbar region without neurogenic claudication (10/13/21) Difficulty in walking, not elsewhere classified (10/13/21) Other abnormalities of gait and mobility (10/13/21) Abnormal posture (10/13/21) Weakness (10/13/21) Physical Therapy Treatment Note PT-OP-A Visit Information Start: 06/24/21 07:50 Freq: Status: Active Protocol: Document 10/13/21 17:51 [facility] (Rec: 10/13/21 18:03 [facility] [id number]) Out-Patient Physical Therapy Visit Information Visit Information Visit Type Aquatic Treatment Note Visit Start Time 11:00 Visit Stop Time 11:30 Total Visit Minutes 30 Visit Number 2/ PT-OP-B Current Condition Start: 06/24/21 07:50 Freq: Status: Active Protocol: Document 06/25/21 13:44 [facility] (Rec: 06/25/21 14:36 [facility] [id number]) Current Condition History of Current Condition Onset Date chronic w/worsened steadiness Current Complaints dec steadiness, LBP History of Current Condition reports pt and her along w/MD was concerned re: steadiness. He has an saba on [employer] taht says his seatdiness is low to very low. Recommendation was initially surgery for his LB but neurosurgeon said he wasn't a canidate for surgery. Surgeon recommended anti-inflammatory meds for flare ups. Dr. Rai recommended an anti- inflammatory diet and he has lost 22 lbs. He takes 1/2 a benadryl at 3 am when he wakes up and that helps. In Dec, his pain was so severe w/ cramps that his would have to put hot moist towels on legs. Pt has been manipulated by DO and that has helped a lot. His walking is more hunched over. He has LBP that gets worse w/bending & w/ lifting and daily activities. Pt can walk about 4 blocks ( to mailbox and 1 more further and back)but if he walks further than that it really drains him to fatigue and walk starts to look unsteady. Lifting laundry inc pain and helping around the house. When he was doing his exercises and doing legs side to side and his legs were shaking a lot and his DO was happy with this. Prior Treatments and Tests PT in past and DO treatment w/ good results MRI report:IMPRESSION: Multilevel degenerative disc disease and arthropathy resulting in varying degrees of central and foraminal stenosis stable from the prior exam, including severe L3-4 and moderate L2-3 central stenosis . Treatment Goals Patient/Caregiver Goals improve balance, improve gait pattern, improve posture, dec cane use, improve ability to walk further to be able to travel, improve back pain PT-OP-C Subjective Start: 06/24/21 07:50 Freq: Status: Active Protocol: Document 10/13/21 17:51 [facility] (Rec: 10/13/21 18:03 [facility] [id number]) OP-PT Subjective Patient Comments Patient Comments Patient's reports inc pain after inc intensity and time with aquatic PT. Agreed to decreased therapy time today. They report Dr. Rai encouraged hip flexor stretching. PT-OP-D Balance Start: 06/24/21 07:50 Freq: Status: Active Protocol: Document 07/29/21 09:43 [facility] (Rec: 07/29/21 14:35 [facility] [id number]) Balance Tests Single Limb Standing Single Limb- Right 2 sec Single Limb- Left 2 sec PT-OP-E Functional Tests Start: 06/24/21 07:50 Freq: Status: Active Protocol: Document 07/29/21 09:43 [facility] (Rec: 07/29/21 14:35 [facility] [id number]) Functional Tests 6 Minute Walk Test Distance 1139ft Device Used none Comments no dec in foot clearance until last min; better posture but still slight fw 30 Second Sit to Stand Test Score 7 Dynamic Gait Index (DGI) Score 20/24 Five Times Sit to Stand Test Score 21sec Functional Gait Assessment Score 19/30 PT-OP-F Manual Assessment Start: 06/24/21 07:50 Freq: Status: Active Protocol: Document 06/25/21 13:44 [facility] (Rec: 06/25/21 14:36 [facility] [id number]) Manual Assessments Soft Tissue Assessment Soft Tissue Mobility Assessment tightness in QL & ES PT-OP-G Mobility & Gait Start: 06/24/21 07:50 Freq: Status: Active Protocol: Document 06/25/21 13:44 [facility] (Rec: 06/26/21 10:21 [facility] [id number]) OP Gait Assessment Comments Gait Comments pt amb fwd flexed and with inc time walking, has dec stance time on RLE, dec push off B and does do lat leaning B w/WB PT-OP-J Posture/Palpation/Skin Start: 06/24/21 07:50 Freq: Status: Active Protocol: Document 06/25/21 13:44 [facility] (Rec: 06/25/21 14:36 [facility] [id number]) Posture Evaluation Comments Posture Comments fwd flex trunk, inc kyphosis, fwd head PT-OP-M Strength Start: 06/24/21 07:50 Freq: Status: Active Protocol: Document 07/29/21 09:43 [facility] (Rec: 07/29/21 14:35 [facility] [id number]) Hip Strength Hip Manual Muscle Testing Right Flexion (L2) 4- Good- Extension (S1) 3+ Fair+ Abduction 4- Good- External Rotation 3 Fair Internal Rotation 4- Good- Left Flexion (L2) 4 Good Extension (S1) 3+ Fair+ Abduction 4- Good- External Rotation 4- Good- Internal Rotation 4 Good Knee Strength Knee Manual Muscle Testing Right Flexion (S2) 4+ Good+ Extension (L3) 4 Good Left Flexion (S2) 4+ Good+ Extension (L3) 4+ Good+ Ankle/Foot Strength Ankle and Foot Manual Muscle Testing Right Dorsiflexion (L4) 5 Normal Plantarflexion (S1) 5 Normal Left Dorsiflexion (L4) 5 Normal Plantarflexion (S1) 5 Normal Comments PF tested seated PT-OP-Q Treatments Start: 06/24/21 07:50 Freq: Status: Active Protocol: Document 09/01/21 15:06 [facility] (Rec: 09/01/21 18:16 [facility] [id number]) Gym Equipment Shuttle Balance 1 Details red clips Comments fwd & side : WBOS & NBOS fwd : staggered stance Therapeutic Exercises Supine Exercises stretch Supine Exercise Name HS stretch Side bilateral Reps/Minutes [id number] bridge Side bilateral Reps/Minutes 10x5 sec Standing Exercises wall posture Standing Exercise Name w/shoulder ext Side bilateral Reps/Minutes 1 min DF Standing Exercise Name alt w/cues for posture Side bilateral Reps/Minutes 2x15 hip flexor Standing Exercise Name stretch Side bilateral Reps/Minutes 1 min ea Neuro Re-Education Treatment Balance Activities 5 Details rail prn Comments 1. standing balnce on bosu 2. side step ups lat bosu w/ braun for feet for big steps down x12 B rail 3. fwd step up x10 B rail 4 Details toe taps B 16 in step Reps/Duration 15B Comments cues posture PT-OP-S Aquatic Treatment Start: 09/17/21 09:55 Freq: Status: Active Protocol: Document 10/13/21 17:51 [facility] (Rec: 10/13/21 18:03 [facility] [id number]) Aquatics Treatment Pool Entry/Exit Pool Entry/Exit Method Stairs Assistance Standby Assistance Water Walking march Water Level Chest Level Walking Equipment none Level of Assistance Standby Assistance,Verbal Cues Comments cues for postural alignment ( balancing bowler on head), core stab fwd,bck,side Water Level Chest Level Level of Assistance Standby Assistance,Verbal Cues Comments cues for postural alignment, core stab Lower Extremity Exercises 4 way hip Body Position Standing Water Level Chest Level Reps/Duration 15x Comments cues for upright posture, core stab Lower Extremity Stretches hip flex Reps/Duration 2x30 Comments lunge stretch quads Body Position Standing Water Level Chest Level Equipment Small Noodle Reps/Duration 2x30 Comments mod physical assist Balance SLS Reps/Duration 5x ea side Webster Activities Webster Activities Bicycle Other Activities walk Equipment large noodle in front Comments moderate verbal and manual cues for postural alignment improved with noodle for flotation PT-OP-T Assessment and Plan Start: 06/24/21 07:50 Freq: Status: Active Protocol: Document 10/13/21 17:51 [facility] (Rec: 10/13/21 18:03 [facility] [id number]) Physical Therapy Assessment Goals walking Impairment 1017 back fatigue at 2.5 min starting and starting w/dec R stance time & lat lean Short Term Goal (STG) Pt will improve 6 min walk distance to at least 1300ft to show improved activity tolerance w/no more than minor back fatigue noted until the end. 07/29-improved 09/17/21: NT STG Duration 10/06/21 Beverage Manager Goal (LTG) Pt will be able to walk 1/2 mile without back fatigue or body fatigue safely w/ w/o LOB or need to lay down after . 09/17/21: can walk 1/4 to 1/3 mile, close supervision or CGA for safety 10/13/21: goal progress LTG Duration 10/22/21 strength Short Term Goal (STG) Pt will be indep w/HEP STG Duration achieved-progressing as able Beverage Manager Goal (LTG) Pt will improve LE strength to at least 4+/5 in all planes to show improved hip and LE staiblity in order to allow pt to help w/household tasks w/o significant fatigue and/or pain. 07/29-improved 09/17/21: goal progress 4/5 except hip extension 4-/5 10/29/21: not reassessed this date in [place]. Good functional improvement noted with walking LTG Duration 10/22/21 sit to stands Impairment 7 sit to stands for 30 sec; 5x sit to stand 21 sec Short Term Goal (STG) Pt will improve 5x sit to stand to with in 13 sec to improve funtional ability. 07/29-no change STG Duration 10/06/21 Correction Goal (LTG) Pt will score at least 11 sit to stands in 30 sec to show dec fall risk and improved strength. 09/17/21: scored 9x, improved 10/13/21: achieved LTG Duration 10/22/21 balance Short Term Goal (STG) Pt will be able to do SLS 5 sec B 07/29-minor improvement R 09/17/21: 2-3 sec kingsley 10/13/21: 3-4 sec kingsley STG Duration 09/17/21 Beverage Manager Goal (LTG) Pt will score at least 25/30 on FGA and 22/24 on DGI to show low fall risk. 07/29-DGI 20/24:FGA19/30 09/17/21: DGI 21/24, FGA 21/30, improved but still mod fall risk. 10/13/21: unable to reassess as patient seen in [place] but noting improved posture, and steadiness with gait. LTG Duration 10/22/21 Progress Towards Goals Progress Towards Goals Progressing Toward Goals Assessment Summary Assessment Patient has made good progress with physical therapy. Goals not fully achieved but he has potential for further improvements. Patient was issued written aquatic exercise program and patient/ given information on personal trainers for aquatic PT and home and will contact. Physical Therapy Plan Discharge Physical Therapy Discharge Comments Patient has completed approved PT visits and will continue HEP and aquatic exercise program with assist of and potentially personal carer per information given.
== END 2021-10-15 13:32 ==
LOC: PHYS 11:00
PROVIDERS: Family Provider Family Medicine; PCP Family Medicine; Referring Provider Nurse Practitioner; Visit Provider Nurse Practitioner
DX: G31.84 Mild cognitive impairment of uncertain or unknown etiology (principal); R26.89 Other abnormalities of gait and mobility; M48.061 Spinal stenosis, lumbar region without neurogenic claudication; R53.1 Weakness; R29.3 Abnormal posture; R26.2 Difficulty in walking, not elsewhere classified
CPT/HCPCS: 97110; 97112; 97113; 97162; 97535

== ENCOUNTER → 2021-11-03 07:25 | Outpatient (CLI) | payer OTHER, SELFPAY ==
[2021-11-03 09:06] LABS: Thyroid Stimulating Hormone 1.69 uIU/mL (0.47-4.68)
[2021-11-03 09:39] LABS: Folate > 20.0 ng/mL (2.76-20.0); Vitamin B12 399 pg/mL (239-931)
== END ==
PROVIDERS: Family Provider Family Medicine; PCP Family Medicine; Referring Provider Nurse Practitioner; Visit Provider Nurse Practitioner
DX: F03.91 Unspecified dementia, unspecified severity, with behavioral disturbance (principal); R53.83 Other fatigue
CPT/HCPCS: 36415; 82607; 82746; 84443

== ENCOUNTER → 2022-05-27 12:28 | Outpatient (CLI) | payer OTHER, SELFPAY ==
[2022-05-27 13:48] LABS: Appearance Urine UA CLEAR; Bilirubin Urine UA NEGATIVE (NEGATIVE); Color Urine UA YELLOW; Glucose Urine UA NEGATIVE (Negative); Ketones Urine UA NEGATIVE (NEGATIVE); Leukocyte Esterase Urine UA NEGATIVE (NEGATIVE); Nitrite Urine UA NEGATIVE (Negative); Occult Blood Urine UA TRACE-INTACT (Negative); Protein Urine UA NEGATIVE (Negative); Specific Gravity Urine UA 1.015 (1.000-1.035); Urobilinogen Urine UA 0.2 E.U./dL (0.2)
[2022-05-27 13:52] LABS: Bacteria Urine None Seen; Culture Indicated Urine Cult Not Indicated; RBC Urine 1-5/HPF (0-5/HPF); WBC Urine None Seen (0-5/HPF)
== END ==
PROVIDERS: Family Provider Family Medicine; PCP Family Medicine; Referring Provider Nurse Practitioner; Visit Provider Nurse Practitioner
DX: F03.918 Unspecified dementia, unspecified severity, with other behavioral disturbance (principal)
CPT/HCPCS: 81001

== ENCOUNTER → 2022-10-29 08:09 | Outpatient (CLI) | payer OTHER, SELFPAY ==
[2022-10-29 09:14] LABS: Add Manual Diff / Slide Review NO; Basophils Absolute Auto 100 /uL (0-100); Basophils Percent Auto 1.8 % (0-2); Eosinophils Absolute Auto 100 /uL (0-450); Eosinophils Percent Auto 2.4 % (2-4); Hematocrit 43.9 % (41-53); Lymphocytes Absolute Auto 1400 /uL (1100-4500); Lymphocytes Percent Auto 27.1 % (25-40); Mean Corpuscular HGB Conc 34.2 % (30-36); Mean Corpuscular Hemoglobin 34.4 PG (26-34); Mean Corpuscular Volume 100.7 fL (80-100); Monocytes Absolute Auto 500 /uL (0-900); Monocytes Percent Auto 9.8 % (3-14); Neutrophils Absolute Auto 3000 /uL (1500-7000); Neutrophils Percent Auto 58.9 % (50-75); Platelet Count 197 X10^3/uL (150-400); Red Blood Cell Count 4.36 X10^6/uL (4.5-5.9); Red Cell Distribution Width 13.6 % (11.6-14.8)
[2022-10-29 09:50] LABS: Alanine Aminotransferase 20 IU/L (<50); Albumin 4.1 g/dL (3.5-5.0); Albumin Globulin Ratio 1.5 (1.0-2.8); Alkaline Phosphatase 74 U/L (38-126); Aspartate Aminotransferase 24 IU/L (17-59); BUN Creatinine Ratio 18.8 (6-22); Bilirubin Total 1.2 mg/dL (0.2-1.3); Blood Urea Nitrogen 16 mg/dL (9-20); Calcium 9.2 mg/dL (8.4-10.2); Carbon Dioxide 31 mmol/L (22-32); Chloride 101 mmol/L (98-107); Cholesterol 202 mg/dL (140-199); Estimated Glomerular Filt Rate > 60 mL/min (>60); Globulin 2.8 g/dL (1.7-4.1); Glucose 112 mg/dL (80-110); HDL Cholesterol 54 mg/dL (40-60); LDL Cholesterol Calculated 133 mg/dL (<100); Potassium 4.2 mmol/L (3.4-5.1); Sodium 138 mmol/L (137-145); Total Protein 6.9 g/dL (6.3-8.2); Triglycerides 74 mg/dL (35-150)
[2022-10-29 10:12] LABS: HEMOLYSIS < 15 (0-50)
[2022-10-29 10:58] LABS: Folate > 20.0 ng/mL (2.76-20.0); Vitamin B12 602 pg/mL (239-931)
== END ==
PROVIDERS: Family Provider Family Medicine; PCP Family Medicine; Referring Provider Family Medicine; Visit Provider Family Medicine
DX: E53.8 Deficiency of other specified B group vitamins (principal); R79.89 Other specified abnormal findings of blood chemistry; I48.91 Unspecified atrial fibrillation
CPT/HCPCS: 36415; 80053; 80061; 82607; 82746; 85025

== ENCOUNTER → 2023-03-29 15:50 | Outpatient (CLI) | payer OTHER, SELFPAY ==
[2023-03-29 17:03] LABS: BUN Creatinine Ratio 23.5 (6-22); Blood Urea Nitrogen 20 mg/dL (9-20); Calcium 9.6 mg/dL (8.4-10.2); Carbon Dioxide 29 mmol/L (22-32); Chloride 103 mmol/L (98-107); Estimated Glomerular Filt Rate > 60 mL/min (>60); Glucose 91 mg/dL (80-110); HEMOLYSIS 46 (0-50); Potassium 4.4 mmol/L (3.4-5.1); Sodium 138 mmol/L (137-145)
== END ==
PROVIDERS: Family Provider Family Medicine; PCP Family Medicine; Referring Provider Urology; Visit Provider Urology
DX: R31.21 Asymptomatic microscopic hematuria (principal); R39.9 Unspecified symptoms and signs involving the genitourinary system; N40.1 Benign prostatic hyperplasia with lower urinary tract symptoms; R35.0 Frequency of micturition; R39.15 Urgency of urination; N39.41 Urge incontinence
CPT/HCPCS: 36415; 80048; 81002; 99214

== ENCOUNTER → 2023-03-31 10:12 | Outpatient (CLI) | payer OTHER, SELFPAY ==
--- NOTE | 2023-03-31 10:17 | DI.CT.S_ITS ---
PROCEDURE: CT ABDOMEN PELVIS WO/W CON INDICATIONS: Asymptomatic microscopic hematuria TECHNIQUE: Optional 5 mm thick noncontrast images acquired from the diaphragm to the symphysis pubis. After the administration of intravenous contrast, 5 mm thick images acquired from the diaphragm to the symphysis pubis after a 10-minute delay. 2 mm thick coronal and sagittal reformats were then performed of the kidneys and ureters. For radiation dose reduction, the following was used: automated exposure control, adjustment of mA and/or kV according to patient size. COMPARISON: None. FINDINGS: Image quality: Excellent. Lung bases: Lung bases are clear. Heart size is normal. Urinary system: Both kidneys are normal in size, without hydronephrosis or nephrolithiasis on pre-contrast images. No perinephric fat stranding. There is normal bilateral renal enhancement. Low-density subcentimeter cystic lesions are present within the renal cortices. Renal calyces appear normal in morphology when filled with contrast. Opacified portions of both ureters demonstrate normal caliber. There is a questionable filling defect within the bladder at the level of the right ureterovesicular junction (series 5/image 179). Bladder wall thickness is normal. No calcified bladder stones. Other solid organs: Liver is normal in size and enhancement. Gallbladder is unremarkable . Biliary system is non dilated. Pancreas enhances normally. Spleen is normal in size and enhancement. No adrenal nodules. Peritoneum and bowel: Bowel loops demonstrate normal wall thickness and caliber. There are scattered sigmoid diverticula. No evidence for diverticulitis.No free fluid or air. Nodes and vessels: No retroperitoneal or mesenteric adenopathy by size criteria. Aorta and inferior vena cava are normal in size. There are scattered atheromatous calcifications throughout the aorta and iliac arteries bilaterally. Abdominal wall: No ventral hernias. Pelvis: No pathologic free pelvic fluid. No inguinal hernias or adenopathy. Bones: No suspicious bony lesions. No vertebral body compression fractures. IMPRESSION: 1. Questionable filling defect at the level of the right ureterovesicular junction which may represent a small urothelial mass. Direct visualization recommended. 2. No hydronephrosis, nephrolithiasis, hydroureter, or ureterolithiasis. No suspicious enhancing renal mass lesions. 3. Diverticulosis. No acute diverticulitis. Dictated by: Elsy Prince M.D. on 03/31/2023 at 13:02 Approved by: Elsy Prince M.D. on 03/31/2023 at 13:07
== END ==
PROVIDERS: Family Provider Family Medicine; PCP Family Medicine; Referring Provider Urology; Visit Provider Urology
DX: R31.21 Asymptomatic microscopic hematuria (principal); K57.30 Diverticulosis of large intestine without perforation or abscess without bleeding
CPT/HCPCS: 74178; Q9967

== ENCOUNTER 2023-05-05 16:00 | Outpatient (RCR) | payer OTHER, SELFPAY ==
--- NOTE | 2022-10-08 16:03 | PT.OIE ---
Current Diagnoses Pain in right hip (10/08/22) Low back pain, unspecified (10/08/22) Difficulty in walking, not elsewhere classified (10/08/22) Other abnormalities of gait and mobility (10/08/22) Unspecified abnormalities of gait and mobility (10/08/22) Abnormal posture (10/08/22) Weakness (10/08/22) Past Medical History (Last Updated 02/25/22 @ 13:31 by Mynor Rai DO) Atrial fibrillation Bilateral finger numbness Central stenosis of spinal canal Cervical radiculopathy Cervical somatic dysfunction Chronic anticoagulation Cognitive decline Concussion Cranial somatic dysfunction Dizziness Easy bruisability Fall (on) (from) other stairs and steps, sequela Fatigue (~11/23/19) Foot joint stiffness, bilateral Heart disease Hypotension Low back pain 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 Lumbar foraminal stenosis Lumbar region somatic dysfunction Obstructive sleep apnea of adult Pelvic somatic dysfunction Sacral region somatic dysfunction Screening for prostate cancer Segmental and somatic dysfunction of abdomen and other regions Segmental and somatic dysfunction of rib cage Sleep walking Somatic dysfunction of lower extremity Squamous cell carcinoma, leg Stiff neck Thoracic region somatic dysfunction Past Surgical History (Last Reviewed 01/21/22 @ 10:04 by Aniceto Parada MD) History of right hip replacement Hx of Achilles tendon repair Hx of umbilical hernia repair Visit Care Team Role Provider Type Mynor Rai DO Family Provider Physician Primary Care Provider Specialty: Family Practice Address: [address] [place] [address] Email: Kelly Norman DO Attending Provider Physician Referring Provider Specialty: Medical Address: [address] [place] [address], [address], [place], [facility] Email: [email or web address] Physical Therapy Initial Evaluation PT-OP-A Visit Information Start: 10/07/22 18:09 Freq: Status: Active Protocol: Document 10/08/22 12:45 [facility] (Rec: 10/08/22 13:39 [facility] [id number]) Out-Patient Physical Therapy Visit Information Visit Information Visit Type Initial Evaluation Visit Note 05/19 Visit Start Time 12:46 Visit Stop Time 13:31 Total Visit Minutes 45 Visit Number 1 Number of CONCRETE FLOATER Visits 0 PT-OP-B Current Condition Start: 10/07/22 18:09 Freq: Status: Active Protocol: Document 10/08/22 12:45 [facility] (Rec: 10/08/22 13:39 [facility] [id number]) Current Condition History of Current Condition Current Complaints back pain, R hip pain, gait abnormalities, balance dec History of Current Condition Pt reports he has had a couple instances of falling where he is in enclosed spaces and falling backwards. He does note he has been catching his feet. His notes he has not been falling too much recently, but the other night admits that after watching a bit of TV, he stood and ended up falling back nto the couch. He is still seeing a DO for Dr. Norman and Dr. Fredi lund has been helpful. This helps his back pain be less and R hip pain dec. He notes that sometimes doing ADLs and moves the wrong way, he has spasms to lat hip. he was floating a lot on recent cruises and that seems to help. He did try going to pool to swim and was in more pain. he is getting a walk in tub at home. notes his gait has slowed down now. History: R achilles tendon surgery, R post hip replacement, A fib, memory loss, neck pain, neuropathy, back pain, dizziness and falls Treatment Goals Patient/Caregiver Goals improve stride length, improve balance, dec back/hip pain. Prior Functional Status Baseline Function- Other In the past few years, pt has overall declined. About 2 years ago, pt was able to go on long walks w/his wifeand had a dec instance of falls. Pt has also had a decline in memory and cognitive function, which has affected his mobility and safety. PT-OP-E Functional Tests Start: 10/07/22 18:09 Freq: Status: Active Protocol: Document 10/08/22 12:45 [facility] (Rec: 10/08/22 13:39 [facility] [id number]) Functional Tests 6 Minute Walk Test Distance 981ft-pt caught foot on floor mult times, lurching fwd Device Used SPC Comments (norm for age would be 1729ft) 30 Second Sit to Stand Test Score 3x Comments no hands silver chair Dynamic Gait Index (DGI) Score n/t d/t time Functional Gait Assessment Score n/t d/t time Tinetti Balance and Gait Assessment Balance Score 12 Gait Score 3 Composite Score 15 PT-OP-G Mobility & Gait Start: 10/07/22 18:09 Freq: Status: Active Protocol: Document 10/08/22 12:45 [facility] (Rec: 10/08/22 13:39 [facility] [id number]) OP Gait Assessment Comments Gait Comments Pt uses cane out side of house . Dec steplength and clearance B overall dec push off. PT-OP-J Posture/Palpation/Skin Start: 10/07/22 18:09 Freq: Status: Active Protocol: Document 10/08/22 12:45 [facility] (Rec: 10/08/22 13:39 [id number] Posture Evaluation Noel Postural Classification System Lumbar Protective Mechanism Left AP 0 Lumbar Protective Mechanism Right AP 0 Lumbar Protective Mechanism Left PA 0 Lumbar Protective Mechanism Right PA 0 Comments Posture Comments ant/ant noel postural classifcation system; flexed at hips and inc kyphosis w/fwd head PT-OP-M Strength Start: 10/07/22 18:09 Freq: Status: Active Protocol: Document 10/08/22 12:45 [facility] (Rec: 10/08/22 13:39 [facility] [id number]) Hip Strength Hip Manual Muscle Testing Right Flexion (L2) 4- Good- Abduction 3+ Fair+ External Rotation 3- Fair- Internal Rotation 4- Good- Left Flexion (L2) 4- Good- Abduction 3+ Fair+ Internal Rotation 4 Good Knee Strength Knee Manual Muscle Testing Right Flexion (S2) 3+ Fair+ Extension (L3) 4- Good- Left Flexion (S2) 4- Good- Extension (L3) 4- Good- Ankle/Foot Strength Ankle and Foot Manual Muscle Testing Right Dorsiflexion (L4) 4 Good Plantarflexion (S1) 3 Fair Left Dorsiflexion (L4) 4 Good Plantarflexion (S1) 3 Fair Comments able to do 2x B PT-OP-Q Treatments Start: 10/07/22 18:09 Freq: Status: Active Protocol: Document 10/08/22 12:45 [facility] (Rec: 10/08/22 15:31 [facility] [id number]) Self-Care/Home Management Treatment Education Other Education edu to pt and x5 min: do sit to stands on about 20 in surface at home as 18 in difficult; edu to pt re: his gait and how that puts him at inc risk for falls. Edu that this is something that PT can help and can improve to dec his instances of falls or near falls. PT-OP-T Assessment and Plan Start: 10/07/22 18:09 Freq: Status: Active Protocol: Document 10/08/22 12:45 [facility] (Rec: 10/08/22 13:39 [facility] [id number]) Physical Therapy Assessment Rehab Potential Rehabilitation Potential Good Evaluation Complexity Number of Personal Factors/Comorbidities 3 or More Number of Body Systems Impaired 4 or More Clinical Presentation at Evaluation Evolving Impairments Impairments Activity Tolerance,Balance, Functional Activities, Functional Mobility,Gait,Pain, Posture,ROM,Soft Tissue Mobility,Strength,Transfers Other Concerns Fall Risk yes Age Related Concerns memory loss and dec cognitive function Goals sit to stands Impairment 3x in 30 sec Impairment 11 is age related norms Short Term Goal (STG) Pt will be able to do at least 6 sit to stands in 30 sec to show dec risk for falls and inc LE strength. STG Duration 11/21/22 Wafer Machine Operator Goal (LTG) Pt will be able to do at least 9 sit to stands in 30 sec to show dec risk for falls and inc LE strength. LTG Duration 12/31/22 balance Short Term Goal (STG) Pt will improve score on Tinneti to at least 24/28 to show low risk for falls STG Duration 11/26/22 Wafer Machine Operator Goal (LTG) Pt will score at least 20/24 on DGI to show dec risk for falls. LTG Duration 12/31/22 walking Impairment 6 min walk-981ft w/SPC Short Term Goal (STG) Pt will improve 6 min walk test to at least 1150ft to show improved basic daily function. STG Duration 11/21/22 Wafer Machine Operator Goal (LTG) Pt will improve 6 min walk test to at least 1350ft w/o any catching his foot on the ground to show improved basic daily function. LTG Duration 12/31/22 Assessment Summary Assessment Pt presents to PT w/main concerns of impaired balance and 's concern about gait abnormalities and pt occasional falls. He does have chronic LBP and R hip pain that he has had flare up and increased pain. He has done PT in past years for balance, back pain and R hip pain and has had good results. He has memory deficits which have gotten progressively worse over the years along w/R achilles surgery w/cont weakness, and R ISMAEL that has cont pain and limitation. Time did not allow for further balance testing,b ut concern w /gait at this time is pt scuffs feet along ground and does not fully step though w/ each step and often catches his toe, causing him to lurch fwd. He woulb enefit from skilled PT to work on his gait , balance, safety, LE and core stability, dec back and R hip pain along w/improve general mobility to have greater ease of participation in daily activities. Physical Therapy Plan Frequency and Duration Frequency of Treatment 1-2x/wk Duration of treatment (weeks) 12 Plan of Care Start Date 10/08/22 Plan of Care End Date 12/31/22 Therapeutic Interventions Therapeutic Interventions Balance Training,Gait Training ,Home Exercise Program,Joint Mobilizations,Manual Therapy, Neuromuscular Re-education, Patient/Caregiver Education, Self-Care/Home Management,Soft Tissue Mobilization,Taping, Therapeutic Activities, Therapeutic Exercises, Vestibular Rehabilitation Modalities Cold Pack/Ice Massage,Electric Stimulation,Hot Packs, Traction- Mechanical, Ultrasound Other Therapeutic Interventions 2x/wk for 5 wks then 1x/wk for 7 wks Next Visit Focus/Plan Next Note Type Treatment Note Next Visit Plan DGI & FGA testing; hurdles for gait, balance board, sport cord resisted gait; HEP: sit to stands, standing DF, standing march, bridges, tandem balance at corner/ counter
--- NOTE | 2022-10-08 16:03 | PT.OPPOC ---
Physical, Occupational & Speech Therapy At [facility] Current Diagnoses Pain in right hip (10/08/22) Low back pain, unspecified (10/08/22) Difficulty in walking, not elsewhere classified (10/08/22) Other abnormalities of gait and mobility (10/08/22) Unspecified abnormalities of gait and mobility (10/08/22) Abnormal posture (10/08/22) Weakness (10/08/22) Visit Care Team Role Provider Type Mynor Rai DO Family Provider Physician Primary Care Provider Specialty: Family Practice Address: [address] [place] [address], [id number] Email: Kelly Norman DO Attending Provider Physician Referring Provider Specialty: Medical Address: [address] [place] [address], [address], [place], [address] Email: [email or web address] Plan Of Care PT-OP-T Assessment and Plan Start: 10/07/22 18:09 Freq: Status: Active Protocol: Document 10/08/22 12:45 [facility] (Rec: 10/08/22 13:39 [facility] [id number]) Physical Therapy Assessment Rehab Potential Rehabilitation Potential Good Evaluation Complexity Number of Personal Factors/Comorbidities 3 or More Number of Body Systems Impaired 4 or More Clinical Presentation at Evaluation Evolving Impairments Impairments Activity Tolerance,Balance, Functional Activities, Functional Mobility,Gait,Pain, Posture,ROM,Soft Tissue Mobility,Strength,Transfers Other Concerns Fall Risk yes Age Related Concerns memory loss and dec cognitive function Goals sit to stands Impairment 3x in 30 sec Impairment 11 is age related norms Short Term Goal (STG) Pt will be able to do at least 6 sit to stands in 30 sec to show dec risk for falls and inc LE strength. STG Duration 11/21/22 Fdc Goal (LTG) Pt will be able to do at least 9 sit to stands in 30 sec to show dec risk for falls and inc LE strength. LTG Duration 12/31/22 balance Short Term Goal (STG) Pt will improve score on Tinneti to at least to show low risk for falls STG Duration 11/26/22 Fdc Goal (LTG) Pt will score at least 20/24 on DGI to show dec risk for falls. LTG Duration 12/31/22 walking Impairment 6 min walk-981ft w/SPC Short Term Goal (STG) Pt will improve 6 min walk test to at least 1150ft to show improved basic daily function. STG Duration 11/21/22 Fdc Goal (LTG) Pt will improve 6 min walk test to at least 1350ft w/o any catching his foot on the ground to show improved basic daily function. LTG Duration 12/31/22 Assessment Summary Assessment Pt presents to PT w/main concerns of impaired balance and 's concern about gait abnormalities and pt occasional falls. He does have chronic LBP and R hip pain that he has had flare up and increased pain. He has done PT in past years for balance, back pain and R hip pain and has had good results. He has memory deficits which have gotten progressively worse over the years along w/R achilles surgery w/cont weakness, and R ISMAEL that has cont pain and limitation. Time did not allow for further balance testing,b ut concern w /gait at this time is pt scuffs feet along ground and does not fully step though w/ each step and often catches his toe, causing him to lurch fwd. He woulb enefit from skilled PT to work on his gait , balance, safety, LE and core stability, dec back and R hip pain along w/improve general mobility to have greater ease of participation in daily activities. Physical Therapy Plan Frequency and Duration Frequency of Treatment 1-2x/wk Duration of treatment (weeks) 12 Plan of Care Start Date 10/08/22 Plan of Care End Date 12/31/22 Therapeutic Interventions Therapeutic Interventions Balance Training,Gait Training ,Home Exercise Program,Joint Mobilizations,Manual Therapy, Neuromuscular Re-education, Patient/Caregiver Education, Self-Care/Home Management,Soft Tissue Mobilization,Taping, Therapeutic Activities, Therapeutic Exercises, Vestibular Rehabilitation Modalities Cold Pack/Ice Massage,Electric Stimulation,Hot Packs, Traction- Mechanical, Ultrasound Other Therapeutic Interventions 2x/wk for 5 wks then 1x/wk for 7 wks Next Visit Focus/Plan Next Note Type Treatment Note Next Visit Plan DGI & FGA testing; hurdles for gait, balance board, sport cord resisted gait; HEP: sit to stands, standing DF, standing march, bridges, tandem balance at corner/ counter Plan of Care Dates Plan of Care Start Date 10/08/22 Plan of Care End Date 12/31/22 Electronically Signed by: Reina Rider, FLORY 10/08/22 9617 If you are in agreement with this Plan of Care, please return a signed and dated copy. I have reviewed this Plan of Care and certify that the skilled therapy services above are required to meet the patient?s needs. Physician Signature Date Printed Name and Credentials Clinical Instructor Signature Printed Name and Credentials
--- NOTE | 2022-10-26 13:41 | PT.OTN ---
Current Diagnoses Pain in right hip (10/26/22) Low back pain, unspecified (10/26/22) Difficulty in walking, not elsewhere classified (10/26/22) Other abnormalities of gait and mobility (10/26/22) Unspecified abnormalities of gait and mobility (10/26/22) Abnormal posture (10/26/22) Weakness (10/26/22) Physical Therapy Treatment Note PT-OP-A Visit Information Start: 10/07/22 18:09 Freq: Status: Active Protocol: Document 10/26/22 12:48 [facility] (Rec: 10/26/22 13:41 [facility] [id number]) Out-Patient Physical Therapy Visit Information Visit Information Visit Type Treatment Note Visit Note 06/19 Visit Start Time 12:47 Visit Stop Time 13:30 Total Visit Minutes 43 Visit Number 2 Number of NEWSPERSON Visits 0 PT-OP-B Current Condition Start: 10/07/22 18:09 Freq: Status: Active Protocol: Document 10/08/22 12:45 [facility] (Rec: 10/08/22 13:39 [facility] [id number]) Current Condition History of Current Condition Current Complaints back pain, R hip pain, gait abnormalities, balance dec History of Current Condition Pt reports he has had a couple instances of falling where he is in enclosed spaces and falling backwards. He does note he has been catching his feet. His notes he has not been falling too much recently, but the other night admits that after watching a bit of TV, he stood and ended up falling back nto the couch. He is still seeing a DO for Dr. Norman and Dr. Fredi calloway has been helpful. This helps his back pain be less and R hip pain dec. He notes that sometimes doing ADLs and moves the wrong way, he has spasms to lat hip. he was floating a lot on recent cruises and that seems to help. He did try going to pool to swim and was in more pain. he is getting a walk in tub at home. notes his gait has slowed down now. History: R achilles tendon surgery, R post hip replacement, A fib, memory loss, neck pain, neuropathy, back pain, dizziness and falls Treatment Goals Patient/Caregiver Goals improve stride length, improve balance, dec back/hip pain. Prior Functional Status Baseline Function- Other In the past few years, pt has overall declined. About 2 years ago, pt was able to go on long walks w/his wifeand had a dec instance of falls. Pt has also had a decline in memory and cognitive function, which has affected his mobility and safety. PT-OP-C Subjective Start: 10/07/22 18:09 Freq: Status: Active Protocol: Document 10/26/22 12:48 [facility] (Rec: 10/26/22 13:41 [id number]PT Subjective Patient Comments Patient Comments reprots pt c/o B knee pain w/sit to stands. PT-OP-E Functional Tests Start: 10/07/22 18:09 Freq: Status: Active Protocol: Document 10/26/22 12:48 [facility] (Rec: 10/26/22 13:41 [place] [id number]) Functional Tests Dynamic Gait Index (DGI) Score 05/02 Functional Gait Assessment Score 03/08 PT-OP-G Mobility & Gait Start: 10/07/22 18:09 Freq: Status: Active Protocol: Document 10/08/22 12:45 [facility] (Rec: 10/08/22 13:39 [place] [id number]) OP Gait Assessment Comments Gait Comments Pt uses cane out side of house . Dec steplength and clearance B overall dec push off. PT-OP-J Posture/Palpation/Skin Start: 10/07/22 18:09 Freq: Status: Active Protocol: Document 10/08/22 12:45 [facility] (Rec: 10/08/22 13:39 [id number] Posture Evaluation Augusto Postural Classification System Lumbar Protective Mechanism Left AP 0 Lumbar Protective Mechanism Right AP 0 Lumbar Protective Mechanism Left PA 0 Lumbar Protective Mechanism Right PA 0 Comments Posture Comments ant/ant augusto postural classifcation system; flexed at hips and inc kyphosis w/fwd head PT-OP-M Strength Start: 10/07/22 18:09 Freq: Status: Active Protocol: Document 10/08/22 12:45 [facility] (Rec: 10/08/22 13:39 [id number] Hip Strength Hip Manual Muscle Testing Right Flexion (L2) 4- Good- Abduction 3+ Fair+ External Rotation 3- Fair- Internal Rotation 4- Good- Left Flexion (L2) 4- Good- Abduction 3+ Fair+ Internal Rotation 4 Good Knee Strength Knee Manual Muscle Testing Right Flexion (S2) 3+ Fair+ Extension (L3) 4- Good- Left Flexion (S2) 4- Good- Extension (L3) 4- Good- Ankle/Foot Strength Ankle and Foot Manual Muscle Testing Right Dorsiflexion (L4) 4 Good Plantarflexion (S1) 3 Fair Left Dorsiflexion (L4) 4 Good Plantarflexion (S1) 3 Fair Comments able to do 2x B PT-OP-Q Treatments Start: 10/07/22 18:09 Freq: Status: Active Protocol: Document 10/26/22 12:48 [facility] (Rec: 10/26/22 13:41 [facility] [id number]) Therapeutic Exercises Sitting Exercises clamshells Side bilateral Equipment Used green band Reps/Minutes 15 Comments cues for R Standing Exercises PF Side bilateral Equipment Used rail Reps/Minutes 15 Comments max cues DF Standing Exercise Name back on wall Side bilateral Reps/Minutes 20 hip abd Side bilateral Equipment Used peach band Reps/Minutes 10 sit to stands Equipment Used orange bands Reps/Minutes 10 Comments working on knee alignment Neuro Re-Education Treatment Balance Activities testing Comments DGI-05/02; 03/08 FGA hurdles Comments fwd over hurdles recip w/rail prn x6 PT-OP-T Assessment and Plan Start: 10/07/22 18:09 Freq: Status: Active Protocol: Document 10/26/22 12:48 [facility] (Rec: 10/26/22 13:41 [facility] [id number]) Physical Therapy Assessment Goals sit to stands Impairment 3x in 30 sec Impairment 11 is age related norms Short Term Goal (STG) Pt will be able to do at least 6 sit to stands in 30 sec to show dec risk for falls and inc LE strength. STG Duration 11/21/22 Alf Goal (LTG) Pt will be able to do at least 9 sit to stands in 30 sec to show dec risk for falls and inc LE strength. LTG Duration 12/31/22 balance Short Term Goal (STG) Pt will improve score on Tinneti to at least 24/28 to show low risk for falls STG Duration 11/26/22 Light Rail Operator Goal (LTG) Pt will score at least 20/24 on DGI to show dec risk for falls. LTG Duration 12/31/22 walking Impairment 6 min walk-981ft w/SPC Impairment 1017 back fatigue at 2.5 min starting and starting w/dec R stance time & lat lean Short Term Goal (STG) Pt will improve 6 min walk test to at least 1150ft to show improved basic daily function. STG Duration 11/21/22 Light Rail Operator Goal (LTG) Pt will improve 6 min walk test to at least 1350ft w/o any catching his foot on the ground to show improved basic daily function. LTG Duration 12/31/22 Assessment Summary Assessment Pt required max cues w/ exercises and balance tasks and had a lot of trouble with the 3 steps then turning of head and required mult reps to do this. He showed signfiicant balance deficits with high risk for falls w/DGI and FGA Physical Therapy Plan Frequency and Duration Frequency of Treatment 1-2x/wk Duration of treatment (weeks) 12 Plan of Care Start Date 10/08/22 Plan of Care End Date 12/31/22 Next Visit Focus/Plan Next Note Type Treatment Note Next Visit Plan DGI & FGA testing; hurdles for gait, balance board, sport cord resisted gait; HEP: sit to stands, standing DF, standing march, bridges, tandem balance at corner/ counter
--- NOTE | 2022-11-05 13:36 | PT.OTN ---
Current Diagnoses Pain in right hip (11/05/22) Low back pain, unspecified (11/05/22) Difficulty in walking, not elsewhere classified (11/05/22) Other abnormalities of gait and mobility (11/05/22) Unspecified abnormalities of gait and mobility (11/05/22) Abnormal posture (11/05/22) Weakness (11/05/22) Physical Therapy Treatment Note PT-OP-A Visit Information Start: 10/07/22 18:09 Freq: Status: Active Protocol: Document 11/05/22 10:47 [facility] (Rec: 11/05/22 13:36 [facility] [id number]) Out-Patient Physical Therapy Visit Information Visit Information Visit Type Treatment Note Visit Note 07/17 Visit Start Time 10:48 Visit Stop Time 11:30 Total Visit Minutes 42 Visit Number 3 Number of RELIGIOUS STUDIES PROFESSOR Visits 0 PT-OP-B Current Condition Start: 10/07/22 18:09 Freq: Status: Active Protocol: Document 10/08/22 12:45 [facility] (Rec: 10/08/22 13:39 [facility] [id number]) Current Condition History of Current Condition Current Complaints back pain, R hip pain, gait abnormalities, balance dec History of Current Condition Pt reports he has had a couple instances of falling where he is in enclosed spaces and falling backwards. He does note he has been catching his feet. His notes he has not been falling too much recently, but the other night admits that after watching a bit of TV, he stood and ended up falling back nto the couch. He is still seeing a DO for Dr. Norman and Dr. Fredi calloway has been helpful. This helps his back pain be less and R hip pain dec. He notes that sometimes doing ADLs and moves the wrong way, he has spasms to lat hip. he was floating a lot on recent cruises and that seems to help. He did try going to pool to swim and was in more pain. he is getting a walk in tub at home. notes his gait has slowed down now. History: R achilles tendon surgery, R post hip replacement, A fib, memory loss, neck pain, neuropathy, back pain, dizziness and falls Treatment Goals Patient/Caregiver Goals improve stride length, improve balance, dec back/hip pain. Prior Functional Status Baseline Function- Other In the past few years, pt has overall declined. About 2 years ago, pt was able to go on long walks w/his wifeand had a dec instance of falls. Pt has also had a decline in memory and cognitive function, which has affected his mobility and safety. PT-OP-C Subjective Start: 10/07/22 18:09 Freq: Status: Active Protocol: Document 11/05/22 10:47 [facility] (Rec: 11/05/22 13:36 [id number] Subjective Patient Comments Patient Comments reports pt MD asked PT to work on flexiblity and stop working on abd strength PT-OP-E Functional Tests Start: 10/07/22 18:09 Freq: Status: Active Protocol: Document 10/26/22 12:48 [facility] (Rec: 10/26/22 13:41 [place] [id number]) Functional Tests Dynamic Gait Index (DGI) Score 05/02 Functional Gait Assessment Score 03/08 PT-OP-G Mobility & Gait Start: 10/07/22 18:09 Freq: Status: Active Protocol: Document 10/08/22 12:45 [facility] (Rec: 10/08/22 13:39 [place] [id number]) OP Gait Assessment Comments Gait Comments Pt uses cane out side of house . Dec steplength and clearance B overall dec push off. PT-OP-J Posture/Palpation/Skin Start: 10/07/22 18:09 Freq: Status: Active Protocol: Document 10/08/22 12:45 [facility] (Rec: 10/08/22 13:39 [id number] Posture Evaluation Augusto Postural Classification System Lumbar Protective Mechanism Left AP 0 Lumbar Protective Mechanism Right AP 0 Lumbar Protective Mechanism Left PA 0 Lumbar Protective Mechanism Right PA 0 Comments Posture Comments ant/ant augusto postural classifcation system; flexed at hips and inc kyphosis w/fwd head PT-OP-M Strength Start: 10/07/22 18:09 Freq: Status: Active Protocol: Document 10/08/22 12:45 [facility] (Rec: 10/08/22 13:39 [id number] Hip Strength Hip Manual Muscle Testing Right Flexion (L2) 4- Good- Abduction 3+ Fair+ External Rotation 3- Fair- Internal Rotation 4- Good- Left Flexion (L2) 4- Good- Abduction 3+ Fair+ Internal Rotation 4 Good Knee Strength Knee Manual Muscle Testing Right Flexion (S2) 3+ Fair+ Extension (L3) 4- Good- Left Flexion (S2) 4- Good- Extension (L3) 4- Good- Ankle/Foot Strength Ankle and Foot Manual Muscle Testing Right Dorsiflexion (L4) 4 Good Plantarflexion (S1) 3 Fair Left Dorsiflexion (L4) 4 Good Plantarflexion (S1) 3 Fair Comments able to do 2x B PT-OP-Q Treatments Start: 10/07/22 18:09 Freq: Status: Active Protocol: Document 11/05/22 10:47 [facility] (Rec: 11/05/22 13:36 [facility] [id number]) Therapeutic Exercises Standing Exercises march Side bilateral Equipment Used fingers on wall Reps/Minutes 15 Comments cues for posture wall squat Side bilateral Equipment Used 55 cm ball, 45 cm ball Reps/Minutes 10 ea Comments max cues for posture DF Side bilateral Reps/Minutes 20 Neuro Re-Education Treatment Balance Activities fwd/back Details fwd march and back walk Reps/Duration 30ft x2 Comments cues for posture and larger steps EC Details fwd walking Reps/Duration 30ft x2 solid ground Comments WBOS &NBOS & staggered stance B EC & head turns foam Comments WBOS, NBOS (head turns & EC trials) staggered stance (EC trials) hurdles Equipment 6 hurdles Comments fwd over hurdles recip w/rail prn x6 sidestep bx2 PT-OP-T Assessment and Plan Start: 10/07/22 18:09 Freq: Status: Active Protocol: Document 11/05/22 10:47 [facility] (Rec: 11/05/22 13:36 [facility] [id number]) Physical Therapy Assessment Goals sit to stands Impairment 3x in 30 sec Impairment 11 is age related norms Short Term Goal (STG) Pt will be able to do at least 6 sit to stands in 30 sec to show dec risk for falls and inc LE strength. STG Duration 11/21/22 Microbiology Teacher Goal (LTG) Pt will be able to do at least 9 sit to stands in 30 sec to show dec risk for falls and inc LE strength. LTG Duration 12/31/22 balance Short Term Goal (STG) Pt will improve score on Tinneti to at least to show low risk for falls STG Duration 11/26/22 Microbiology Teacher Goal (LTG) Pt will score at least 20/24 on DGI to show dec risk for falls. LTG Duration 12/31/22 walking Impairment 6 min walk-981ft w/SPC Impairment 1017 back fatigue at 2.5 min starting and starting w/dec R stance time & lat lean Short Term Goal (STG) Pt will improve 6 min walk test to at least 1150ft to show improved basic daily function. STG Duration 11/21/22 Microbiology Teacher Goal (LTG) Pt will improve 6 min walk test to at least 1350ft w/o any catching his foot on the ground to show improved basic daily function. LTG Duration 12/31/22 Assessment Summary Assessment Pt did well with max cues during exercises for step length and posture. He is challenged by larger steps and fwd or back amb. Uneven surfaces challenging. Discussed w/ that TP will follow up w/DO. Physical Therapy Plan Frequency and Duration Frequency of Treatment 1-2x/wk Duration of treatment (weeks) 12 Plan of Care Start Date 10/08/22 Plan of Care End Date 12/31/22 Next Visit Focus/Plan Next Note Type Treatment Note Next Visit Plan hurdles for gait, balance board, sport cord resisted gait; review HEP as needed: sit to stands, standing DF, standing march, bridges, tandem balance at corner/ counter
--- NOTE | 2022-11-25 17:57 | PT.OTN ---
Current Diagnoses Pain in right hip (11/25/22) Low back pain, unspecified (11/25/22) Difficulty in walking, not elsewhere classified (11/25/22) Other abnormalities of gait and mobility (11/25/22) Unspecified abnormalities of gait and mobility (11/25/22) Abnormal posture (11/25/22) Weakness (11/25/22) Physical Therapy Treatment Note PT-OP-A Visit Information Start: 10/07/22 18:09 Freq: Status: Active Protocol: Document 11/25/22 16:51 [facility] (Rec: 11/25/22 17:57 [facility] [id number]) Out-Patient Physical Therapy Visit Information Visit Information Visit Type Treatment Note Visit Note 08/17 Visit Start Time 16:49 Visit Stop Time 17:31 Total Visit Minutes 42 Visit Number 4 Number of ADVISORY SOFTWARE ENGINEER Visits 0 PT-OP-B Current Condition Start: 10/07/22 18:09 Freq: Status: Active Protocol: Document 10/08/22 12:45 [facility] (Rec: 10/08/22 13:39 [facility] [id number]) Current Condition History of Current Condition Current Complaints back pain, R hip pain, gait abnormalities, balance dec History of Current Condition Pt reports he has had a couple instances of falling where he is in enclosed spaces and falling backwards. He does note he has been catching his feet. His notes he has not been falling too much recently, but the other night admits that after watching a bit of TV, he stood and ended up falling back nto the couch. He is still seeing a DO [facility] This helps his back pain be less and R hip pain dec. He notes that sometimes doing ADLs and moves the wrong way, he has spasms to lat hip. he was floating a lot on recent cruises and that seems to help. He did try going to pool to swim and was in more pain. he is getting a walk in tub at home. notes his gait has slowed down now. History: R achilles tendon surgery, R post hip replacement, A fib, memory loss, neck pain, neuropathy, back pain, dizziness and falls Treatment Goals Patient/Caregiver Goals improve stride length, improve balance, dec back/hip pain. Prior Functional Status Baseline Function- Other In the past few years, pt has overall declined. About 2 years ago, pt was able to go on long walks w/his wifeand had a dec instance of falls. Pt has also had a decline in memory and cognitive function, which has affected his mobility and safety. PT-OP-C Subjective Start: 10/07/22 18:09 Freq: Status: Active Protocol: Document 11/25/22 16:51 [facility] (Rec: 11/25/22 17:57 [id number]) OP-PT Subjective Patient Comments Patient Comments notes they do 5 sit to stands at a time which pt tolerates. PT-OP-E Functional Tests Start: 10/07/22 18:09 Freq: Status: Active Protocol: Document 10/26/22 12:48 [facility] (Rec: 10/26/22 13:41 [id number] Functional Tests Dynamic Gait Index (DGI) Score 05/02 Functional Gait Assessment Score 03/08 PT-OP-G Mobility & Gait Start: 10/07/22 18:09 Freq: Status: Active Protocol: Document 10/08/22 12:45 [facility] (Rec: 10/08/22 13:39 [place] [id number]) OP Gait Assessment Comments Gait Comments Pt uses cane out side of house . Dec steplength and clearance B overall dec push off. PT-OP-J Posture/Palpation/Skin Start: 10/07/22 18:09 Freq: Status: Active Protocol: Document 10/08/22 12:45 [facility] (Rec: 10/08/22 13:39 [id number]) Posture Evaluation Augusto Postural Classification System Lumbar Protective Mechanism Left AP 0 Lumbar Protective Mechanism Right AP 0 Lumbar Protective Mechanism Left PA 0 Lumbar Protective Mechanism Right PA 0 Comments Posture Comments ant/ant augusto postural classifcation system; flexed at hips and inc kyphosis w/fwd head PT-OP-M Strength Start: 10/07/22 18:09 Freq: Status: Active Protocol: Document 10/08/22 12:45 [facility] (Rec: 10/08/22 13:39 [id number]) Hip Strength Hip Manual Muscle Testing Right Flexion (L2) 4- Good- Abduction 3+ Fair+ External Rotation 3- Fair- Internal Rotation 4- Good- Left Flexion (L2) 4- Good- Abduction 3+ Fair+ Internal Rotation 4 Good Knee Strength Knee Manual Muscle Testing Right Flexion (S2) 3+ Fair+ Extension (L3) 4- Good- Left Flexion (S2) 4- Good- Extension (L3) 4- Good- Ankle/Foot Strength Ankle and Foot Manual Muscle Testing Right Dorsiflexion (L4) 4 Good Plantarflexion (S1) 3 Fair Left Dorsiflexion (L4) 4 Good Plantarflexion (S1) 3 Fair Comments able to do 2x B PT-OP-Q Treatments Start: 10/07/22 18:09 Freq: Status: Active Protocol: Document 11/25/22 16:51 [facility] (Rec: 11/25/22 17:57 [id number]) Gym Equipment Shuttle Balance 1 Details red clips Comments fwd & side : WBOS balance and wt shifts & mini squats in each direction Therapeutic Exercises Standing Exercises hip flexor stretch Side bilateral Reps/Minutes 1 min ea Comments inc time w/pt set up step ups Standing Exercise Name step up w/alt march Side bilateral Equipment Used 2 rails & 5 in step Reps/Minutes 10 ea Comments max cues for RLE knee ext & posture Neuro Re-Education Treatment Balance Activities fwd/back Comments 1. exaggerated steps for length 20t x2 2.fwd july 20ft x2 3. backwards steps 20ft x2 foam Comments staggered stance B w/ head turns & EC trials hurdles Equipment 6 hurdles Comments fwd over hurdles recip w/rail prn x8 PT-OP-T Assessment and Plan Start: 10/07/22 18:09 Freq: Status: Active Protocol: Document 11/25/22 16:51 [facility] (Rec: 11/25/22 17:57 [id number]) Physical Therapy Assessment Goals sit to stands Impairment 3x in 30 sec Impairment 11 is age related norms Short Term Goal (STG) Pt will be able to do at least 6 sit to stands in 30 sec to show dec risk for falls and inc LE strength. STG Duration 11/21/22 Longterm Goal (LTG) Pt will be able to do at least 9 sit to stands in 30 sec to show dec risk for falls and inc LE strength. LTG Duration 12/31/22 balance Short Term Goal (STG) Pt will improve score on Tinneti to at least to show low risk for falls STG Duration 11/26/22 Site Head Goal (LTG) Pt will score at least 20/ on DGI to show dec risk for falls. LTG Duration 12/31/22 walking Impairment 6 min walk-981ft w/SPC Impairment 1017 back fatigue at 2.5 min starting and starting w/dec R stance time & lat lean Short Term Goal (STG) Pt will improve 6 min walk test to at least 1150ft to show improved basic daily function. STG Duration 11/21/22 Site Head Goal (LTG) Pt will improve 6 min walk test to at least 1350ft w/o any catching his foot on the ground to show improved basic daily function. LTG Duration 12/31/22 Assessment Summary Assessment Pt did well with static balance activities but was very challenged by activities that encouraged large steps including the hurdles. He shows dec quad strength w/step ups. Physical Therapy Plan Frequency and Duration Frequency of Treatment 1-2x/wk Duration of treatment (weeks) 12 Plan of Care Start Date 10/08/22 Plan of Care End Date 12/31/22 Next Visit Focus/Plan Next Note Type Treatment Note Next Visit Plan hurdles for gait, balance board, sport cord resisted gait; review HEP as needed: sit to stands, standing DF, standing march, bridges, tandem balance at corner/ counter
--- NOTE | 2022-12-02 13:29 | PT.OTN ---
Addendum entered and electronically signed by Reina Rider, PT 12/02/22 17:03: PT direct supervision and direction to PT student. Original Note: Current Diagnoses Pain in right hip (12/02/22) Low back pain, unspecified (12/02/22) Difficulty in walking, not elsewhere classified (12/02/22) Other abnormalities of gait and mobility (12/02/22) Unspecified abnormalities of gait and mobility (12/02/22) Abnormal posture (12/02/22) Weakness (12/02/22) Physical Therapy Treatment Note PT-OP-A Visit Information Start: 10/07/22 18:09 Freq: Status: Active Protocol: Document 12/02/22 11:54 (Rec: 12/02/22 12:08 [id number]) Out-Patient Physical Therapy Visit Information Visit Information Visit Type Treatment Note Visit Note 09/16 Visit Start Time 10:48 Visit Stop Time 11:30 Total Visit Minutes 43 Visit Number 5 Number of CAR PICK UP DRIVER Visits 0 PT-OP-B Current Condition Start: 10/07/22 18:09 Freq: Status: Active Protocol: Document 10/08/22 12:45 [facility] (Rec: 10/08/22 13:39 [facility] [id number]) Current Condition History of Current Condition Current Complaints back pain, R hip pain, gait abnormalities, balance dec History of Current Condition Pt reports he has had a couple instances of falling where he is in enclosed spaces and falling backwards. He does note he has been catching his feet. His notes he has not been falling too much recently, but the other night admits that after watching a bit of TV, he stood and ended up falling back nto the couch. He is still seeing a DO for Dr. Norman and [facility]. This helps his back pain be less and R hip pain dec. He notes that sometimes doing ADLs and moves the wrong way, he has spasms to lat hip. he was floating a lot on recent cruises and that seems to help. He did try going to pool to swim and was in more pain. he is getting a walk in tub at home. notes his gait has slowed down now. History: R achilles tendon surgery, R post hip replacement, A fib, memory loss, neck pain, neuropathy, back pain, dizziness and falls Treatment Goals Patient/Caregiver Goals improve stride length, improve balance, dec back/hip pain. Prior Functional Status Baseline Function- Other In the past few years, pt has overall declined. About 2 years ago, pt was able to go on long walks w/his wifeand had a dec instance of falls. Pt has also had a decline in memory and cognitive function, which has affected his mobility and safety. PT-OP-C Subjective Start: 10/07/22 18:09 Freq: Status: Active Protocol: Document 12/02/22 11:54 (Rec: 12/02/22 12:08 [id number]) OP-PT Subjective Patient Comments Patient Comments notes that he has been going to a massage therapist and he feels great afterwrads. She has noticed that he is standing straighter. She also note that pt does get frusturated w/her at home when she is correcting his movements/posture during his exercises. PT-OP-E Functional Tests Start: 10/07/22 18:09 Freq: Status: Active Protocol: Document 10/26/22 12:48 [facility] (Rec: 10/26/22 13:41 [facility] [id number]) Functional Tests Dynamic Gait Index (DGI) Score 05/02 Functional Gait Assessment Score 03/08 PT-OP-G Mobility & Gait Start: 10/07/22 18:09 Freq: Status: Active Protocol: Document 10/08/22 12:45 [facility] (Rec: 10/08/22 13:39 [facility] [id number]) OP Gait Assessment Comments Gait Comments Pt uses cane out side of house . Dec steplength and clearance B overall dec push off. PT-OP-J Posture/Palpation/Skin Start: 10/07/22 18:09 Freq: Status: Active Protocol: Document 10/08/22 12:45 [facility] (Rec: 10/08/22 13:39 [facility] [id number]) Posture Evaluation Augusto Postural Classification System Lumbar Protective Mechanism Left AP 0 Lumbar Protective Mechanism Right AP 0 Lumbar Protective Mechanism Left PA 0 Lumbar Protective Mechanism Right PA 0 Comments Posture Comments ant/ant augusto postural classifcation system; flexed at hips and inc kyphosis w/fwd head PT-OP-M Strength Start: 10/07/22 18:09 Freq: Status: Active Protocol: Document 10/08/22 12:45 [facility] (Rec: 10/08/22 13:39 [facility] [id number]) Hip Strength Hip Manual Muscle Testing Right Flexion (L2) 4- Good- Abduction 3+ Fair+ External Rotation 3- Fair- Internal Rotation 4- Good- Left Flexion (L2) 4- Good- Abduction 3+ Fair+ Internal Rotation 4 Good Knee Strength Knee Manual Muscle Testing Right Flexion (S2) 3+ Fair+ Extension (L3) 4- Good- Left Flexion (S2) 4- Good- Extension (L3) 4- Good- Ankle/Foot Strength Ankle and Foot Manual Muscle Testing Right Dorsiflexion (L4) 4 Good Plantarflexion (S1) 3 Fair Left Dorsiflexion (L4) 4 Good Plantarflexion (S1) 3 Fair Comments able to do 2x B PT-OP-Q Treatments Start: 10/07/22 18:09 Freq: Status: Active Protocol: Document 12/02/22 11:54 (Rec: 12/02/22 12:08 [id number]) Gym Equipment Shuttle Recovery 2 Details DL Resistance #50 Reps/Time 3x10 1 Details SL, max cues for knee ext Resistance #37 B Reps/Time 15x ea Shuttle Balance 1 Details red clips Comments fwd in tandem : WBOS balance and wt shifts & mini squats in each direction & head turns Therapeutic Exercises Standing Exercises Tilt board Standing Exercise Name tilt board @parallel bars. 1. side/side 2.fwd/back Side bilateral Comments B directions added mini squats step ups Standing Exercise Name 1.step up w/alt july 2.step up w/high knee and over 3. lateral Side bilateral Equipment Used //bars 5 in step Reps/Minutes 10 ea Comments max cues for RLE knee ext & posture Neuro Re-Education Treatment Balance Activities fwd/back Details fwd and heel walking Reps/Duration 30ft x2ea Comments 1. exaggerated steps for length max cues for big steps *L toe did scuff once B directions 2.pausing for reset of toes up hurdles Equipment 6 hurdles Comments fwd over hurdles recip w/rail prn. PT GREEN TIRE INSPECTOR as needed x8 PT-OP-T Assessment and Plan Start: 10/07/22 18:09 Freq: Status: Active Protocol: Document 12/02/22 11:54 (Rec: 12/02/22 12:08 [id number]) Physical Therapy Assessment Goals sit to stands Impairment 3x in 30 sec Impairment 11 is age related norms Short Term Goal (STG) Pt will be able to do at least 6 sit to stands in 30 sec to show dec risk for falls and inc LE strength. STG Duration 11/21/22 Glassware Defect Repairer Goal (LTG) Pt will be able to do at least 9 sit to stands in 30 sec to show dec risk for falls and inc LE strength. LTG Duration 12/31/22 balance Short Term Goal (STG) Pt will improve score on Tinneti to at least to show low risk for falls STG Duration 11/26/22 Group Home Goal (LTG) Pt will score at least / on DGI to show dec risk for falls. LTG Duration 12/31/22 walking Impairment 6 min walk-981ft w/SPC Impairment 1017 back fatigue at 2.5 min starting and starting w/dec R stance time & lat lean Short Term Goal (STG) Pt will improve 6 min walk test to at least 1150ft to show improved basic daily function. STG Duration 11/21/22 Group Home Goal (LTG) Pt will improve 6 min walk test to at least 1350ft w/o any catching his foot on the ground to show improved basic daily function. LTG Duration 12/31/22 Assessment Summary Assessment Pt did well w/exercises today. His LLE had difficulty initiating a high knee when stepping up. He had increased difficulty raising his LLE when going into SLS positions. Max verbal cues were needed to encourage big steps. Lateral stepping on bax was inconsistent w/ big steps to clear box. Physical Therapy Plan Frequency and Duration Frequency of Treatment 1-2x/wk Duration of treatment (weeks) 12 Plan of Care Start Date 10/08/22 Plan of Care End Date 12/31/22 Next Visit Focus/Plan Next Note Type Treatment Note Next Visit Plan hurdles for gait, balance board, sport cord resisted gait; review HEP as needed: sit to stands, standing DF, standing march, bridges, tandem balance at corner/ counter
--- NOTE | 2022-12-08 17:29 | PT.OTN ---
Addendum entered and electronically signed by Reina Rider, PT 12/08/22 17:57: PT direct supervision and direction to PT student. Original Note: Current Diagnoses Pain in right hip (12/08/22) Low back pain, unspecified (12/08/22) Difficulty in walking, not elsewhere classified (12/08/22) Other abnormalities of gait and mobility (12/08/22) Unspecified abnormalities of gait and mobility (12/08/22) Abnormal posture (12/08/22) Weakness (12/08/22) Physical Therapy Treatment Note PT-OP-A Visit Information Start: 10/07/22 18:09 Freq: Status: Active Protocol: Document 12/08/22 14:59 (Rec: 12/08/22 15:12 [id number]) Out-Patient Physical Therapy Visit Information Visit Information Visit Type Treatment Note Visit Note 10/17 Visit Start Time 13:32 Visit Stop Time 14:15 Total Visit Minutes 43 Visit Number 6 Number of RATTLESNAKE FARMER Visits 0 PT-OP-B Current Condition Start: 10/07/22 18:09 Freq: Status: Active Protocol: Document 10/08/22 12:45 [facility] (Rec: 10/08/22 13:39 [facility] [id number]) Current Condition History of Current Condition Current Complaints back pain, R hip pain, gait abnormalities, balance dec History of Current Condition Pt reports he has had a couple instances of falling where he is in enclosed spaces and falling backwards. He does note he has been catching his feet. His notes he has not been falling too much recently, but the other night admits that after watching a bit of TV, he stood and ended up falling back nto the couch. He is still seeing a DO for Dr. Norman and Dr. [facility] has been helpful. This helps his back pain be less and R hip pain dec. He notes that sometimes doing ADLs and moves the wrong way, he has spasms to lat hip. he was floating a lot on recent cruises and that seems to help. He did try going to pool to swim and was in more pain. he is getting a walk in tub at home. notes his gait has slowed down now. History: R achilles tendon surgery, R post hip replacement, A fib, memory loss, neck pain, neuropathy, back pain, dizziness and falls Treatment Goals Patient/Caregiver Goals improve stride length, improve balance, dec back/hip pain. Prior Functional Status Baseline Function- Other In the past few years, pt has overall declined. About 2 years ago, pt was able to go on long walks w/his wifeand had a dec instance of falls. Pt has also had a decline in memory and cognitive function, which has affected his mobility and safety. PT-OP-C Subjective Start: 10/07/22 18:09 Freq: Status: Active Protocol: Document 12/08/22 14:59 [facility] (Rec: 12/08/22 15:12 [id number]) OP-PT Subjective Patient Comments Patient Comments pt notes no new changes. He has been doing his exercises at home with his and does feel a little fatigued in his LEs today. PT-OP-E Functional Tests Start: 10/07/22 18:09 Freq: Status: Active Protocol: Document 10/26/22 12:48 [facility] (Rec: 10/26/22 13:41 [facility] [id number]) Functional Tests Dynamic Gait Index (DGI) Score 05/02 Functional Gait Assessment Score 03/08 PT-OP-G Mobility & Gait Start: 10/07/22 18:09 Freq: Status: Active Protocol: Document 10/08/22 12:45 [facility] (Rec: 10/08/22 13:39 [facility] [id number]) OP Gait Assessment Comments Gait Comments Pt uses cane out side of house . Dec steplength and clearance B overall dec push off. PT-OP-J Posture/Palpation/Skin Start: 10/07/22 18:09 Freq: Status: Active Protocol: Document 10/08/22 12:45 [facility] (Rec: 10/08/22 13:39 [facility] [id number]) Posture Evaluation Augusto Postural Classification System Lumbar Protective Mechanism Left AP 0 Lumbar Protective Mechanism Right AP 0 Lumbar Protective Mechanism Left PA 0 Lumbar Protective Mechanism Right PA 0 Comments Posture Comments ant/ant augusto postural classifcation system; flexed at hips and inc kyphosis w/fwd head PT-OP-M Strength Start: 10/07/22 18:09 Freq: Status: Active Protocol: Document 10/08/22 12:45 [facility] (Rec: 10/08/22 13:39 [facility] [id number]) Hip Strength Hip Manual Muscle Testing Right Flexion (L2) 4- Good- Abduction 3+ Fair+ External Rotation 3- Fair- Internal Rotation 4- Good- Left Flexion (L2) 4- Good- Abduction 3+ Fair+ Internal Rotation 4 Good Knee Strength Knee Manual Muscle Testing Right Flexion (S2) 3+ Fair+ Extension (L3) 4- Good- Left Flexion (S2) 4- Good- Extension (L3) 4- Good- Ankle/Foot Strength Ankle and Foot Manual Muscle Testing Right Dorsiflexion (L4) 4 Good Plantarflexion (S1) 3 Fair Left Dorsiflexion (L4) 4 Good Plantarflexion (S1) 3 Fair Comments able to do 2x B PT-OP-Q Treatments Start: 10/07/22 18:09 Freq: Status: Active Protocol: Document 12/08/22 14:59 (Rec: 12/08/22 15:12 [id number]) Gym Equipment Shuttle Recovery 2 Details DL max cues for knee ext. orange band around knees Resistance #50 Reps/Time 3x10 1 Details SL, max cues for knee ext Resistance #37 B Reps/Time 15x ea Shuttle Balance 1 Details red clips Comments fwd/back: WBOS balance and wt shifts & mini squats side/side: WBOS wt shift and mini squats Therapeutic Exercises Sitting Exercises HS stretch Sitting Exercise Name seated HS stretch Side bilateral Reps/Minutes 30sec ea Comments cues for posture Standing Exercises calf stretch Standing Exercise Name calf stretch w/ JAY Side bilateral Reps/Minutes 2x Comments pt was encouraged to do one at a time, doing B same time bothered achilles step ups Standing Exercise Name 1.step up w/alt july 2.step up w/high knee and over 3. lateral Side bilateral Equipment Used //bars 5 in step Reps/Minutes 10 ea Comments max cues for RLE knee ext & posture Neuro Re-Education Treatment Balance Activities fwd/back Details High knees, big steps, backward walking Reps/Duration 30ft x2ea Comments 1. exaggerated steps for length max cues for big steps *L toe did scuff once B directions 2.pausing for reset of toes up foam Details on blue tpads Reps/Duration 4x ea Comments staggered stance B w/ head turns & EC trials hurdles Equipment 6 hurdles Comments fwd over hurdles recip w/rail prn. PT FERN CUTTER as needed x8 PT-OP-T Assessment and Plan Start: 10/07/22 18:09 Freq: Status: Active Protocol: Document 12/08/22 14:59 (Rec: 12/08/22 15:12 [id number]) Physical Therapy Assessment Goals sit to stands Impairment 3x in 30 sec Impairment 11 is age related norms Short Term Goal (STG) Pt will be able to do at least 6 sit to stands in 30 sec to show dec risk for falls and inc LE strength. STG Duration 11/21/22 Livestock Caretaker Goal (LTG) Pt will be able to do at least 9 sit to stands in 30 sec to show dec risk for falls and inc LE strength. LTG Duration 12/31/22 balance Short Term Goal (STG) Pt will improve score on Tinneti to at least 24/ to show low risk for falls STG Duration 11/26/22 Longterm Goal (LTG) Pt will score at least 20/24 on DGI to show dec risk for falls. LTG Duration 12/31/22 walking Impairment 6 min walk-981ft w/SPC Impairment 1017 back fatigue at 2.5 min starting and starting w/dec R stance time & lat lean Short Term Goal (STG) Pt will improve 6 min walk test to at least 1150ft to show improved basic daily function. STG Duration 11/21/22 Longterm Goal (LTG) Pt will improve 6 min walk test to at least 1350ft w/o any catching his foot on the ground to show improved basic daily function. LTG Duration 12/31/22 Assessment Summary Assessment Pt was a littel fatigued today in his LEs with exercises. He did need max cues for all exercises for posture and movement. pt did struggle w/ balance activities today and had 2 losses in balance when stepping over hurdles, PT was at pt side for FERN CUTTER as needed. He did note some discomfort in his L achilles when in staggered stance but when repositioned into WBOS he felt fine. Physical Therapy Plan Frequency and Duration Frequency of Treatment 1-2x/wk Duration of treatment (weeks) 12 Plan of Care Start Date 10/08/22 Plan of Care End Date 12/31/22 Next Visit Focus/Plan Next Note Type Treatment Note Next Visit Plan hurdles for gait, balance board, sport cord resisted gait; review HEP as needed: sit to stands, standing DF, standing march, bridges, tandem balance at corner/ counter
--- NOTE | 2022-12-21 11:37 | PT.OTN ---
Current Diagnoses Pain in right hip (12/21/22) Low back pain, unspecified (12/21/22) Difficulty in walking, not elsewhere classified (12/21/22) Other abnormalities of gait and mobility (12/21/22) Unspecified abnormalities of gait and mobility (12/21/22) Abnormal posture (12/21/22) Weakness (12/21/22) Physical Therapy Treatment Note PT-OP-A Visit Information Start: 10/07/22 18:09 Freq: Status: Active Protocol: Document 12/21/22 10:50 [facility] (Rec: 12/21/22 11:37 [facility] [id number]) Out-Patient Physical Therapy Visit Information Visit Information Visit Type Progress Note Visit Note 11/16 Visit Number 7 Number of CANE PACKER Visits 0 PT-OP-B Current Condition Start: 10/07/22 18:09 Freq: Status: Active Protocol: Document 10/08/22 12:45 [facility] (Rec: 10/08/22 13:39 [facility] [id number]) Current Condition History of Current Condition Current Complaints back pain, R hip pain, gait abnormalities, balance dec History of Current Condition Pt reports he has had a couple instances of falling where he is in enclosed spaces and falling backwards. He does note he has been catching his feet. His notes he has not been falling too much recently, but the other night admits that after watching a bit of TV, he stood and ended up falling back nto the couch. He is still seeing a DO for Dr. Norman and Dr. Fredi lund has been helpful. This helps his back pain be less and R hip pain dec. He notes that sometimes doing ADLs and moves the wrong way, he has spasms to lat hip. he was floating a lot on recent cruises and that seems to help. He did try going to pool to swim and was in more pain. he is getting a walk in tub at home. notes his gait has slowed down now. History: R achilles tendon surgery, R post hip replacement, A fib, memory loss, neck pain, neuropathy, back pain, dizziness and falls Treatment Goals Patient/Caregiver Goals improve stride length, improve balance, dec back/hip pain. Prior Functional Status Baseline Function- Other In the past few years, pt has overall declined. About 2 years ago, pt was able to go on long walks w/his wifeand had a dec instance of falls. Pt has also had a decline in memory and cognitive function, which has affected his mobility and safety. PT-OP-C Subjective Start: 10/07/22 18:09 Freq: Status: Active Protocol: Document 12/21/22 10:50 [facility] (Rec: 12/21/22 11:37 [facility] [id number]) OP-PT Subjective Patient Comments Patient Comments reports they have started a functional exercise class 1x/week at the [facility] [place]. she is going to tryto inc that to 2x/week PT-OP-E Functional Tests Start: 10/07/22 18:09 Freq: Status: Active Protocol: Document 12/21/22 10:50 [facility] (Rec: 12/21/22 11:37 [id number] Functional Tests 30 Second Sit to Stand Test Score 3x Comments no hands silver chair Dynamic Gait Index (DGI) Score 18/24 Five Times Sit to Stand Test Score 30 sec Comments no hands silver chair Tinetti Balance and Gait Assessment Balance Score 13 Gait Score 10 Composite Score 23 PT-OP-G Mobility & Gait Start: 10/07/22 18:09 Freq: Status: Active Protocol: Document 10/08/22 12:45 [facility] (Rec: 10/08/22 13:39 [id number] OP Gait Assessment Comments Gait Comments Pt uses cane out side of house . Dec steplength and clearance B overall dec push off. PT-OP-J Posture/Palpation/Skin Start: 10/07/22 18:09 Freq: Status: Active Protocol: Document 10/08/22 12:45 [facility] (Rec: 10/08/22 13:39 [facility] [id number]) Posture Evaluation Augusto Postural Classification System Lumbar Protective Mechanism Left AP 0 Lumbar Protective Mechanism Right AP 0 Lumbar Protective Mechanism Left PA 0 Lumbar Protective Mechanism Right PA 0 Comments Posture Comments ant/ant augusto postural classifcation system; flexed at hips and inc kyphosis w/fwd head PT-OP-M Strength Start: 10/07/22 18:09 Freq: Status: Active Protocol: Document 10/08/22 12:45 [facility] (Rec: 10/08/22 13:39 [facility] [id number]) Hip Strength Hip Manual Muscle Testing Right Flexion (L2) 4- Good- Abduction 3+ Fair+ External Rotation 3- Fair- Internal Rotation 4- Good- Left Flexion (L2) 4- Good- Abduction 3+ Fair+ Internal Rotation 4 Good Knee Strength Knee Manual Muscle Testing Right Flexion (S2) 3+ Fair+ Extension (L3) 4- Good- Left Flexion (S2) 4- Good- Extension (L3) 4- Good- Ankle/Foot Strength Ankle and Foot Manual Muscle Testing Right Dorsiflexion (L4) 4 Good Plantarflexion (S1) 3 Fair Left Dorsiflexion (L4) 4 Good Plantarflexion (S1) 3 Fair Comments able to do 2x B PT-OP-Q Treatments Start: 10/07/22 18:09 Freq: Status: Active Protocol: Document 12/21/22 10:50 [facility] (Rec: 12/21/22 11:37 [facility] [id number]) Therapeutic Exercises Standing Exercises squats Standing Exercise Name holding bar Side bilateral Reps/Minutes 6 reisted walk Standing Exercise Name fwd/back Side bilateral Equipment Used red band Reps/Minutes 20ft x2 DF Standing Exercise Name PF/DF Side bilateral Equipment Used rail Reps/Minutes 10 sit to stands Reps/Minutes 3 no hands Comments mult attempts Neuro Re-Education Treatment Balance Activities hurdles Equipment 6 hurdles Comments fwd over hurdles recip w/rail prn. PT MEMBERSHIP ASSISTANT as needed x8 side step over 1 hand on rail x2 B PT-OP-T Assessment and Plan Start: 10/07/22 18:09 Freq: Status: Active Protocol: Document 12/21/22 10:50 [facility] (Rec: 12/21/22 11:37 [facility] [id number]) Physical Therapy Assessment Goals sit to stands Impairment 3x in 30 sec Impairment 11 is age related norms Short Term Goal (STG) Pt will be able to do at least 6 sit to stands in 30 sec to show dec risk for falls and inc LE strength. 12/21- still limited STG Duration 01/22 Bacteriologist Fishery Goal (LTG) Pt will be able to do at least 9 sit to stands in 30 sec to show dec risk for falls and inc LE strength. LTG Duration 03/01/23 balance Short Term Goal (STG) Pt will improve score on Tinneti to at least 24/28 to show low risk for falls 12/21- STG Duration 01/22 Alf Goal (LTG) Pt will score at least 20/24 on DGI to show dec risk for falls. 12/21- LTG Duration 03/01/23 walking Impairment 6 min walk-981ft w/SPC Impairment 1017 back fatigue at 2.5 min starting and starting w/dec R stance time & lat lean Short Term Goal (STG) Pt will improve 6 min walk test to at least 1150ft to show improved basic daily function. 12/21-1011 ft STG Duration 01/17/23 Bacteriologist Fishery Goal (LTG) Pt will improve 6 min walk test to at least 1350ft w/o any catching his foot on the ground to show improved basic daily function. LTG Duration 03/01/23 Assessment Summary Assessment Pt was very challenged by sit to stands today. He is still very limited w/this task. He did progress w/balance tests whcih shows dec risk for falls . W/6 min walk, pt still shows dec compared to age related norms and also catches his toe mult times during the tst. Cont PT to work on his strength and balance and dec pain. Physical Therapy Plan Frequency and Duration Frequency of Treatment 1-2x/wk Duration of treatment (weeks) 10 Plan of Care Start Date 12/21/22 Plan of Care End Date 03/01/23 Therapeutic Interventions Therapeutic Interventions Balance Training,Gait Training ,Home Exercise Program,Joint Mobilizations,Manual Therapy, Neuromuscular Re-education, Patient/Caregiver Education, Self-Care/Home Management,Soft Tissue Mobilization,Taping, Therapeutic Activities, Therapeutic Exercises, Vestibular Rehabilitation Modalities Cold Pack/Ice Massage,Electric Stimulation,Hot Packs, Traction- Mechanical, Ultrasound Other Therapeutic Interventions 2x/wk for 5 wks then 1x/wk for 7 wks Next Visit Focus/Plan Next Note Type Treatment Note Next Visit Plan hurdles for gait, balance board, sport cord resisted gait; review HEP as needed: sit to stands, standing DF, standing march, bridges, tandem balance at corner/ counter
--- NOTE | 2022-12-21 11:37 | PT.OPPOC ---
Physical, Occupational & Speech Therapy At [facility] Current Diagnoses Pain in right hip (12/21/22) Low back pain, unspecified (12/21/22) Difficulty in walking, not elsewhere classified (12/21/22) Other abnormalities of gait and mobility (12/21/22) Unspecified abnormalities of gait and mobility (12/21/22) Abnormal posture (12/21/22) Weakness (12/21/22) Visit Care Team Role Provider Type Mynor Rai DO Family Provider Physician Primary Care Provider Specialty: Family Practice Address: [address] [place] [address], [id number] Email: Kelly Norman DO Attending Provider Physician Referring Provider Specialty: Medical Address: [address] [place] [address], [address], [place], [address] Email: [email or web address] Plan Of Care PT-OP-T Assessment and Plan Start: 10/07/22 18:09 Freq: Status: Active Protocol: Document 12/21/22 10:50 [facility] (Rec: 12/21/22 11:37 [facility] [id number]) Physical Therapy Assessment Goals sit to stands Impairment 3x in 30 sec Impairment 11 is age related norms Short Term Goal (STG) Pt will be able to do at least 6 sit to stands in 30 sec to show dec risk for falls and inc LE strength. 12/21- still limited STG Duration 01/22 Correction Goal (LTG) Pt will be able to do at least 9 sit to stands in 30 sec to show dec risk for falls and inc LE strength. LTG Duration 03/01/23 balance Short Term Goal (STG) Pt will improve score on Tinneti to at least 24/28 to show low risk for falls 12/21- STG Duration 01/22 Correction Goal (LTG) Pt will score at least 20/24 on DGI to show dec risk for falls. 12/21- LTG Duration 03/01/23 walking Impairment 6 min walk-981ft w/SPC Impairment 1017 back fatigue at 2.5 min starting and starting w/dec R stance time & lat lean Short Term Goal (STG) Pt will improve 6 min walk test to at least 1150ft to show improved basic daily function. 12/21-1011 ft STG Duration 01/17/23 Quality Control Lab Tech Goal (LTG) Pt will improve 6 min walk test to at least 1350ft w/o any catching his foot on the ground to show improved basic daily function. LTG Duration 03/01/23 Assessment Summary Assessment Pt was very challenged by sit to stands today. He is still very limited w/this task. He did progress w/balance tests whcih shows dec risk for falls . W/6 min walk, pt still shows dec compared to age related norms and also catches his toe mult times during the tst. Cont PT to work on his strength and balance and dec pain. Physical Therapy Plan Frequency and Duration Frequency of Treatment 1-2x/wk Duration of treatment (weeks) 10 Plan of Care Start Date 12/21/22 Plan of Care End Date 03/01/23 Therapeutic Interventions Therapeutic Interventions Balance Training,Gait Training ,Home Exercise Program,Joint Mobilizations,Manual Therapy, Neuromuscular Re-education, Patient/Caregiver Education, Self-Care/Home Management,Soft Tissue Mobilization,Taping, Therapeutic Activities, Therapeutic Exercises, Vestibular Rehabilitation Modalities Cold Pack/Ice Massage,Electric Stimulation,Hot Packs, Traction- Mechanical, Ultrasound Other Therapeutic Interventions 2x/wk for 5 wks then 1x/wk for 7 wks Next Visit Focus/Plan Next Note Type Treatment Note Next Visit Plan hurdles for gait, balance board, sport cord resisted gait; review HEP as needed: sit to stands, standing DF, standing july, bridges, tandem balance at corner/ counter Plan of Care Dates Plan of Care Start Date 12/21/22 Plan of Care End Date 03/01/23 Electronically Signed by: Reina Rider, PT 12/21/22 4007 If you are in agreement with this Plan of Care, please return a signed and dated copy. I have reviewed this Plan of Care and certify that the skilled therapy services above are required to meet the patient?s needs. Physician Signature Date Printed Name and Credentials Clinical Instructor Signature Printed Name and Credentials
--- NOTE | 2022-12-28 12:08 | PT.OTN ---
Current Diagnoses Pain in right hip (12/28/22) Low back pain, unspecified (12/28/22) Difficulty in walking, not elsewhere classified (12/28/22) Other abnormalities of gait and mobility (12/28/22) Unspecified abnormalities of gait and mobility (12/28/22) Abnormal posture (12/28/22) Weakness (12/28/22) Physical Therapy Treatment Note PT-OP-A Visit Information Start: 10/07/22 18:09 Freq: Status: Active Protocol: Document 12/28/22 10:52 [facility] (Rec: 12/28/22 12:07 [facility] [id number]) Out-Patient Physical Therapy Visit Information Visit Information Visit Type Treatment Note Visit Note 06/19 Visit Start Time 10:52 Visit Stop Time 11:38 Total Visit Minutes 46 Visit Number 8 Number of SHANK RANDER Visits 0 PT-OP-B Current Condition Start: 10/07/22 18:09 Freq: Status: Active Protocol: Document 10/08/22 12:45 [facility] (Rec: 10/08/22 13:39 [facility] [id number]) Current Condition History of Current Condition Current Complaints back pain, R hip pain, gait abnormalities, balance dec History of Current Condition Pt reports he has had a couple instances of falling where he is in enclosed spaces and falling backwards. He does note he has been catching his feet. His notes he has not been falling too much recently, but the other night admits that after watching a bit of TV, he stood and ended up falling back nto the couch. He is still seeing a DO for Dr. Norman and Dr. Fredi calloway has been helpful. This helps his back pain be less and R hip pain dec. He notes that sometimes doing ADLs and moves the wrong way, he has spasms to lat hip. he was floating a lot on recent cruises and that seems to help. He did try going to pool to swim and was in more pain. he is getting a walk in tub at home. notes his gait has slowed down now. History: R achilles tendon surgery, R post hip replacement, A fib, memory loss, neck pain, neuropathy, back pain, dizziness and falls Treatment Goals Patient/Caregiver Goals improve stride length, improve balance, dec back/hip pain. Prior Functional Status Baseline Function- Other In the past few years, pt has overall declined. About 2 years ago, pt was able to go on long walks w/his wifeand had a dec instance of falls. Pt has also had a decline in memory and cognitive function, which has affected his mobility and safety. PT-OP-C Subjective Start: 10/07/22 18:09 Freq: Status: Active Protocol: Document 12/28/22 10:52 [facility] (Rec: 12/28/22 12:07 [facility] [id number]) OP-PT Subjective Patient Comments Patient Comments Pt reports some back and hip pain today and that is there all day. PT-OP-E Functional Tests Start: 10/07/22 18:09 Freq: Status: Active Protocol: Document 12/21/22 10:50 [facility] (Rec: 12/21/22 11:37 [id number] Functional Tests 30 Second Sit to Stand Test Score 3x Comments no hands silver chair Dynamic Gait Index (DGI) Score 18/24 Five Times Sit to Stand Test Score 30 sec Comments no hands silver chair Tinetti Balance and Gait Assessment Balance Score 13 Gait Score 10 Composite Score 23 PT-OP-G Mobility & Gait Start: 10/07/22 18:09 Freq: Status: Active Protocol: Document 10/08/22 12:45 [facility] (Rec: 10/08/22 13:39 [id number] OP Gait Assessment Comments Gait Comments Pt uses cane out side of house . Dec steplength and clearance B overall dec push off. PT-OP-J Posture/Palpation/Skin Start: 10/07/22 18:09 Freq: Status: Active Protocol: Document 10/08/22 12:45 [facility] (Rec: 10/08/22 13:39 [facility] [id number]) Posture Evaluation Augusto Postural Classification System Lumbar Protective Mechanism Left AP 0 Lumbar Protective Mechanism Right AP 0 Lumbar Protective Mechanism Left PA 0 Lumbar Protective Mechanism Right PA 0 Comments Posture Comments ant/ant augusto postural classifcation system; flexed at hips and inc kyphosis w/fwd head PT-OP-M Strength Start: 10/07/22 18:09 Freq: Status: Active Protocol: Document 10/08/22 12:45 [facility] (Rec: 10/08/22 13:39 [facility] [id number]) Hip Strength Hip Manual Muscle Testing Right Flexion (L2) 4- Good- Abduction 3+ Fair+ External Rotation 3- Fair- Internal Rotation 4- Good- Left Flexion (L2) 4- Good- Abduction 3+ Fair+ Internal Rotation 4 Good Knee Strength Knee Manual Muscle Testing Right Flexion (S2) 3+ Fair+ Extension (L3) 4- Good- Left Flexion (S2) 4- Good- Extension (L3) 4- Good- Ankle/Foot Strength Ankle and Foot Manual Muscle Testing Right Dorsiflexion (L4) 4 Good Plantarflexion (S1) 3 Fair Left Dorsiflexion (L4) 4 Good Plantarflexion (S1) 3 Fair Comments able to do 2x B PT-OP-Q Treatments Start: 10/07/22 18:09 Freq: Status: Active Protocol: Document 12/28/22 10:52 [facility] (Rec: 12/28/22 12:07 [facility] [id number]) Manual Therapy Treatment Soft Tissue Mobilization hip Body Location R lat glute and ITB Mobilization Type Rolling Intensity/Depth Moderate Body Position Hooklying Comments w/gentle hip ER lumbar Body Location R ES & QL Mobilization Type Rolling Intensity/Depth Moderate Body Position Sidelying Joint Mobilizations innominate Joint R add FM Body Position Sidelying Self-Care/Home Management Treatment Education Other Education 8 min:edu to drink water and make sure to stay hydrated as that can cause orthostatic hypotension; discussion w/pt and re: this and hydration and discussed use of electolytes. Activities Self-Care/Home Management Activities bp:112/68-seated stand:97/59 (4 min total) PT-OP-T Assessment and Plan Start: 10/07/22 18:09 Freq: Status: Active Protocol: Document 12/28/22 10:52 [facility] (Rec: 12/28/22 12:07 [facility] [id number]) Physical Therapy Assessment Goals sit to stands Impairment 3x in 30 sec Impairment 11 is age related norms Short Term Goal (STG) Pt will be able to do at least 6 sit to stands in 30 sec to show dec risk for falls and inc LE strength. 12/21- still limited STG Duration 01/22 Formula Clerk Goal (LTG) Pt will be able to do at least 9 sit to stands in 30 sec to show dec risk for falls and inc LE strength. LTG Duration 03/01/23 balance Short Term Goal (STG) Pt will improve score on Tinneti to at least 24/28 to show low risk for falls 12/21- STG Duration 01/22 Formula Clerk Goal (LTG) Pt will score at least 20/24 on DGI to show dec risk for falls. LTG Duration 03/01/23 walking Impairment 6 min walk-981ft w/SPC Impairment 1017 back fatigue at 2.5 min starting and starting w/dec R stance time & lat lean Short Term Goal (STG) Pt will improve 6 min walk test to at least 1150ft to show improved basic daily function. 12/21-1011 ft STG Duration 01/17/23 Formula Clerk Goal (LTG) Pt will improve 6 min walk test to at least 1350ft w/o any catching his foot on the ground to show improved basic daily function. LTG Duration 03/01/23 Assessment Summary Assessment Pt walked in very bent over when walking in and after manual was standing straighter . After getting up from the mat table, pt noted some dizziness. He had orthostatic hypotension and was educated on this along w/his . Physical Therapy Plan Frequency and Duration Frequency of Treatment 1-2x/wk Duration of treatment (weeks) 10 Plan of Care Start Date 12/21/22 Plan of Care End Date 03/01/23 Next Visit Focus/Plan Next Note Type Treatment Note Next Visit Plan hurdles for gait, balance board, sport cord resisted gait; review HEP as needed: sit to stands, standing DF, standing march, bridges, tandem balance at corner/ counter
--- NOTE | 2023-01-04 10:46 | PT.OTN ---
Current Diagnoses Pain in right hip (01/04/23) Low back pain, unspecified (01/04/23) Difficulty in walking, not elsewhere classified (01/04/23) Other abnormalities of gait and mobility (01/04/23) Unspecified abnormalities of gait and mobility (01/04/23) Abnormal posture (01/04/23) Weakness (01/04/23) Physical Therapy Treatment Note PT-OP-A Visit Information Start: 10/07/22 18:09 Freq: Status: Active Protocol: Document 01/04/23 10:02 [facility] (Rec: 01/04/23 10:46 [facility] [id number]) Out-Patient Physical Therapy Visit Information Visit Information Visit Type Treatment Note Visit Note 07/17 Visit Start Time 10:02 Visit Stop Time 10:43 Total Visit Minutes 41 Visit Number 9 Number of BAR TENDER Visits 0 PT-OP-B Current Condition Start: 10/07/22 18:09 Freq: Status: Active Protocol: Document 10/08/22 12:45 [facility] (Rec: 10/08/22 13:39 [facility] [id number]) Current Condition History of Current Condition Current Complaints back pain, R hip pain, gait abnormalities, balance dec History of Current Condition Pt reports he has had a couple instances of falling where he is in enclosed spaces and falling backwards. He does note he has been catching his feet. His notes he has not been falling too much recently, but the other night admits that after watching a bit of TV, he stood and ended up falling back nto the couch. He is still seeing a DO for Dr[facility] Norman [facility]. This helps his back pain be less and R hip pain dec. He notes that sometimes doing ADLs and moves the wrong way, he has spasms to lat hip. he was floating a lot on recent cruises and that seems to help. He did try going to pool to swim and was in more pain. he is getting a walk in tub at home. notes his gait has slowed down now. History: R achilles tendon surgery, R post hip replacement, A fib, memory loss, neck pain, neuropathy, back pain, dizziness and falls Treatment Goals Patient/Caregiver Goals improve stride length, improve balance, dec back/hip pain. Prior Functional Status Baseline Function- Other In the past few years, pt has overall declined. About 2 years ago, pt was able to go on long walks w/his wifeand had a dec instance of falls. Pt has also had a decline in memory and cognitive function, which has affected his mobility and safety. PT-OP-C Subjective Start: 10/07/22 18:09 Freq: Status: Active Protocol: Document 01/04/23 10:02 [facility] (Rec: 01/04/23 10:46 [facility] [id number]) OP-PT Subjective Patient Comments Patient Comments pt reports his back is feeling better PT-OP-E Functional Tests Start: 10/07/22 18:09 Freq: Status: Active Protocol: Document 12/21/22 10:50 [facility] (Rec: 12/21/22 11:37 [facility] [id number]) Functional Tests 30 Second Sit to Stand Test Score 3x Comments no hands silver chair Dynamic Gait Index (DGI) Score 18/24 Five Times Sit to Stand Test Score 30 sec Comments no hands silver chair Tinetti Balance and Gait Assessment Balance Score 13 Gait Score 10 Composite Score 23 PT-OP-G Mobility & Gait Start: 10/07/22 18:09 Freq: Status: Active Protocol: Document 10/08/22 12:45 [facility] (Rec: 10/08/22 13:39 [facility] [id number]) OP Gait Assessment Comments Gait Comments Pt uses cane out side of house . Dec steplength and clearance B overall dec push off. PT-OP-J Posture/Palpation/Skin Start: 10/07/22 18:09 Freq: Status: Active Protocol: Document 10/08/22 12:45 [facility] (Rec: 10/08/22 13:39 [facility] [id number]) Posture Evaluation Augusto Postural Classification System Lumbar Protective Mechanism Left AP 0 Lumbar Protective Mechanism Right AP 0 Lumbar Protective Mechanism Left PA 0 Lumbar Protective Mechanism Right PA 0 Comments Posture Comments ant/ant augusto postural classifcation system; flexed at hips and inc kyphosis w/fwd head PT-OP-M Strength Start: 10/07/22 18:09 Freq: Status: Active Protocol: Document 10/08/22 12:45 [facility] (Rec: 10/08/22 13:39 [facility] [id number]) Hip Strength Hip Manual Muscle Testing Right Flexion (L2) 4- Good- Abduction 3+ Fair+ External Rotation 3- Fair- Internal Rotation 4- Good- Left Flexion (L2) 4- Good- Abduction 3+ Fair+ Internal Rotation 4 Good Knee Strength Knee Manual Muscle Testing Right Flexion (S2) 3+ Fair+ Extension (L3) 4- Good- Left Flexion (S2) 4- Good- Extension (L3) 4- Good- Ankle/Foot Strength Ankle and Foot Manual Muscle Testing Right Dorsiflexion (L4) 4 Good Plantarflexion (S1) 3 Fair Left Dorsiflexion (L4) 4 Good Plantarflexion (S1) 3 Fair Comments able to do 2x B PT-OP-Q Treatments Start: 10/07/22 18:09 Freq: Status: Active Protocol: Document 01/04/23 10:02 [facility] (Rec: 01/04/23 10:46 [facility] [id number]) Neuro Re-Education Treatment Balance Activities squares Comments in/out w/max cues of agility ladder x1 head turns Reps/Duration 50ft ea Comments 1. vertical head turns 2. horizontal head turns tilt board Reps/Duration 10 Comments fwd/back & side to side wt shifts fwd/back Details High knees, big steps, backward walking Reps/Duration 50ftx2 ea Comments 1. fwd july 2. backwards walk foam Comments 1.staggered stance B w/ head turns & EC trials blue foam 2. squat on blue foam foam x10 3.fwd over blue, green, black, and valladares x8 total hurdles Equipment 6 hurdles Comments fwd over hurdles recip w/rail prn. x8 side step over hand on rail prn x2 B PT-OP-T Assessment and Plan Start: 10/07/22 18:09 Freq: Status: Active Protocol: Document 01/04/23 10:02 [facility] (Rec: 01/04/23 10:46 [facility] [id number]) Physical Therapy Assessment Goals sit to stands Impairment 3x in 30 sec Impairment 11 is age related norms Short Term Goal (STG) Pt will be able to do at least 6 sit to stands in 30 sec to show dec risk for falls and inc LE strength. 12/21- still limited STG Duration 01/22 Mcfp Goal (LTG) Pt will be able to do at least 9 sit to stands in 30 sec to show dec risk for falls and inc LE strength. LTG Duration 03/01/23 balance Short Term Goal (STG) Pt will improve score on Tinneti to at least 24/28 to show low risk for falls 12/21- STG Duration 01/22 Mcfp Goal (LTG) Pt will score at least 20/24 on DGI to show dec risk for falls. 12/21- LTG Duration 03/01/23 walking Impairment 6 min walk-981ft w/SPC Impairment 1017 back fatigue at 2.5 min starting and starting w/dec R stance time & lat lean Short Term Goal (STG) Pt will improve 6 min walk test to at least 1150ft to show improved basic daily function. 12/21-1011 ft STG Duration 01/17/23 Mcfp Goal (LTG) Pt will improve 6 min walk test to at least 1350ft w/o any catching his foot on the ground to show improved basic daily function. LTG Duration 03/01/23 Assessment Summary Assessment Pt had a lot of difficulty w/ agility ladder and grapevien steps. He has difficulty even w/PT max cues for sequence and does tend to lose his balance . Hurdles are still very challenging for him. Physical Therapy Plan Frequency and Duration Frequency of Treatment 1-2x/wk Duration of treatment (weeks) 10 Plan of Care Start Date 12/21/22 Plan of Care End Date 03/01/23 Next Visit Focus/Plan Next Note Type Treatment Note Next Visit Plan hurdles for gait, balance board, sport cord resisted gait; review HEP as needed: sit to stands, standing DF, standing march, bridges, tandem balance at corner/ counter
--- NOTE | 2023-01-19 15:07 | PT.OTN ---
Current Diagnoses Pain in right hip (01/19/23) Low back pain, unspecified (01/19/23) Difficulty in walking, not elsewhere classified (01/19/23) Other abnormalities of gait and mobility (01/19/23) Unspecified abnormalities of gait and mobility (01/19/23) Abnormal posture (01/19/23) Weakness (01/19/23) Physical Therapy Treatment Note PT-OP-A Visit Information Start: 10/07/22 18:09 Freq: Status: Active Protocol: Document 01/19/23 14:21 [facility] (Rec: 01/19/23 15:07 [facility] [id number]) Out-Patient Physical Therapy Visit Information Visit Information Visit Type Treatment Note Visit Note 08/17 Visit Start Time 14:21 Visit Stop Time 15:01 Total Visit Minutes 40 Visit Number 10 Number of CARPENTRY SUPERVISOR Visits 0 PT-OP-B Current Condition Start: 10/07/22 18:09 Freq: Status: Active Protocol: Document 10/08/22 12:45 [facility] (Rec: 10/08/22 13:39 [facility] [id number]) Current Condition History of Current Condition Current Complaints back pain, R hip pain, gait abnormalities, balance dec History of Current Condition Pt reports he has had a couple instances of falling where he is in enclosed spaces and falling backwards. He does note he has been catching his feet. His notes he has not been falling too much recently, but the other night admits that after watching a bit of TV, he stood and ended up falling back nto the couch. He is still seeing a DO for Dr. Norman and Dr. Fredi calloway has been helpful. This helps his back pain be less and R hip pain dec. He notes that sometimes doing ADLs and moves the wrong way, he has spasms to lat hip. he was floating a lot on recent cruises and that seems to help. He did try going to pool to swim and was in more pain. he is getting a walk in tub at home. notes his gait has slowed down now. History: R achilles tendon surgery, R post hip replacement, A fib, memory loss, neck pain, neuropathy, back pain, dizziness and falls Treatment Goals Patient/Caregiver Goals improve stride length, improve balance, dec back/hip pain. Prior Functional Status Baseline Function- Other In the past few years, pt has overall declined. About 2 years ago, pt was able to go on long walks w/his wifeand had a dec instance of falls. Pt has also had a decline in memory and cognitive function, which has affected his mobility and safety. PT-OP-C Subjective Start: 10/07/22 18:09 Freq: Status: Active Protocol: Document 01/19/23 14:21 [facility] (Rec: 01/19/23 15:07 [facility] [id number]) OP-PT Subjective Patient Comments Patient Comments Pt reports he leaves for a cruise in a couple weeks. PT-OP-E Functional Tests Start: 10/07/22 18:09 Freq: Status: Active Protocol: Document 12/21/22 10:50 [facility] (Rec: 12/21/22 11:37 [facility] [id number]) Functional Tests 30 Second Sit to Stand Test Score 3x Comments no hands silver chair Dynamic Gait Index (DGI) Score 18/24 Five Times Sit to Stand Test Score 30 sec Comments no hands silver chair Tinetti Balance and Gait Assessment Balance Score 13 Gait Score 10 Composite Score 23 PT-OP-G Mobility & Gait Start: 10/07/22 18:09 Freq: Status: Active Protocol: Document 10/08/22 12:45 [facility] (Rec: 10/08/22 13:39 [facility] [id number]) OP Gait Assessment Comments Gait Comments Pt uses cane out side of house . Dec steplength and clearance B overall dec push off. PT-OP-J Posture/Palpation/Skin Start: 10/07/22 18:09 Freq: Status: Active Protocol: Document 10/08/22 12:45 [facility] (Rec: 10/08/22 13:39 [facility] [id number]) Posture Evaluation Augusto Postural Classification System Lumbar Protective Mechanism Left AP 0 Lumbar Protective Mechanism Right AP 0 Lumbar Protective Mechanism Left PA 0 Lumbar Protective Mechanism Right PA 0 Comments Posture Comments ant/ant augusto postural classifcation system; flexed at hips and inc kyphosis w/fwd head PT-OP-M Strength Start: 10/07/22 18:09 Freq: Status: Active Protocol: Document 10/08/22 12:45 [facility] (Rec: 10/08/22 13:39 [facility] [id number]) Hip Strength Hip Manual Muscle Testing Right Flexion (L2) 4- Good- Abduction 3+ Fair+ External Rotation 3- Fair- Internal Rotation 4- Good- Left Flexion (L2) 4- Good- Abduction 3+ Fair+ Internal Rotation 4 Good Knee Strength Knee Manual Muscle Testing Right Flexion (S2) 3+ Fair+ Extension (L3) 4- Good- Left Flexion (S2) 4- Good- Extension (L3) 4- Good- Ankle/Foot Strength Ankle and Foot Manual Muscle Testing Right Dorsiflexion (L4) 4 Good Plantarflexion (S1) 3 Fair Left Dorsiflexion (L4) 4 Good Plantarflexion (S1) 3 Fair Comments able to do 2x B PT-OP-Q Treatments Start: 10/07/22 18:09 Freq: Status: Active Protocol: Document 01/19/23 14:21 [facility] (Rec: 01/19/23 15:07 [facility] [id number]) Gym Equipment Shuttle Balance 1 Details red clips Comments WBOS, NBOS w/head turns and staggered stance B all fwd facing Neuro Re-Education Treatment Balance Activities grapevine Reps/Duration 20ft Comments max cues throughout fwd/back Details High knees, big steps, backward walking Equipment 2lb wts Reps/Duration 50ftx2 ea Comments 1. fwd july 2. backwards walk foam Comments 1.july in place x10 B 2. squat on blue foam foam x10 3.fwd over blue, green, black, and valladares x8 total hurdles Equipment 6 hurdles w/2lb wts on ea foot Comments fwd over hurdles recip w/rail prn. x8 side step over hand on rail prn x2 B PT-OP-T Assessment and Plan Start: 10/07/22 18:09 Freq: Status: Active Protocol: Document 01/19/23 14:21 [facility] (Rec: 01/19/23 15:07 [facility] [id number]) Physical Therapy Assessment Goals sit to stands Impairment 3x in 30 sec Impairment 11 is age related norms Short Term Goal (STG) Pt will be able to do at least 6 sit to stands in 30 sec to show dec risk for falls and inc LE strength. 12/21- still limited STG Duration 01/22 C Programmer Goal (LTG) Pt will be able to do at least 9 sit to stands in 30 sec to show dec risk for falls and inc LE strength. LTG Duration 03/01/23 balance Short Term Goal (STG) Pt will improve score on Tinneti to at least 24/28 to show low risk for falls 12/21- STG Duration 01/22 Penitentiary Goal (LTG) Pt will score at least 20/24 on DGI to show dec risk for falls. 12/21- LTG Duration 03/01/23 walking Impairment 6 min walk-981ft w/SPC Impairment 1017 back fatigue at 2.5 min starting and starting w/dec R stance time & lat lean Short Term Goal (STG) Pt will improve 6 min walk test to at least 1150ft to show improved basic daily function. 12/21-1011 ft STG Duration 01/17/23 C Programmer Goal (LTG) Pt will improve 6 min walk test to at least 1350ft w/o any catching his foot on the ground to show improved basic daily function. LTG Duration 03/01/23 Assessment Summary Assessment Pt tends to respond better now w/cues for larger steps w/ improved response and bigger steps. Did appear to fatigue more w/balance activities w/ wts on ankles as he would tend to lift his legs less towards the end of the reps. Physical Therapy Plan Frequency and Duration Frequency of Treatment 1-2x/wk Duration of treatment (weeks) 10 Plan of Care Start Date 12/21/22 Plan of Care End Date 03/01/23 Next Visit Focus/Plan Next Note Type Treatment Note Next Visit Plan hurdles for gait, balance board, sport cord resisted gait; review HEP as needed: sit to stands, standing DF, standing march, bridges, tandem balance at corner/ counter
--- NOTE | 2023-02-25 13:57 | PT.OTN ---
Current Diagnoses Pain in right hip (02/25/23) Low back pain, unspecified (02/25/23) Difficulty in walking, not elsewhere classified (02/25/23) Other abnormalities of gait and mobility (02/25/23) Unspecified abnormalities of gait and mobility (02/25/23) Abnormal posture (02/25/23) Weakness (02/25/23) Physical Therapy Treatment Note PT-OP-A Visit Information Start: 10/07/22 18:09 Freq: Status: Active Protocol: Document 02/25/23 11:37 [facility] (Rec: 02/25/23 13:57 [facility] [id number]) Out-Patient Physical Therapy Visit Information Visit Information Visit Type Progress Note Visit Note 09/16 Visit Start Time 11:36 Visit Stop Time 12:18 Total Visit Minutes 42 Visit Number 11 Number of MAGAZINE GRINDER LOADER Visits 0 PT-OP-B Current Condition Start: 10/07/22 18:09 Freq: Status: Active Protocol: Document 10/08/22 12:45 [facility] (Rec: 10/08/22 13:39 [facility] [id number]) Current Condition History of Current Condition Current Complaints back pain, R hip pain, gait abnormalities, balance dec History of Current Condition Pt reports he has had a couple instances of falling where he is in enclosed spaces and falling backwards. He does note he has been catching his feet. His notes he has not been falling too much recently, but the other night admits that after watching a bit of TV, he stood and ended up falling back nto the couch. He is still seeing a DO for Dr[facility] Norman [facility] This helps his back pain be less and R hip pain dec. He notes that sometimes doing ADLs and moves the wrong way, he has spasms to lat hip. he was floating a lot on recent cruises and that seems to help. He did try going to pool to swim and was in more pain. he is getting a walk in tub at home. notes his gait has slowed down now. History: R achilles tendon surgery, R post hip replacement, A fib, memory loss, neck pain, neuropathy, back pain, dizziness and falls Treatment Goals Patient/Caregiver Goals improve stride length, improve balance, dec back/hip pain. Prior Functional Status Baseline Function- Other In the past few years, pt has overall declined. About 2 years ago, pt was able to go on long walks w/his wifeand had a dec instance of falls. Pt has also had a decline in memory and cognitive function, which has affected his mobility and safety. PT-OP-C Subjective Start: 10/07/22 18:09 Freq: Status: Active Protocol: Document 02/25/23 11:37 [facility] (Rec: 02/25/23 13:57 [facility] [id number]) OP-PT Subjective Patient Comments Patient Comments reports pt has not always been recognizing her and has seemed to have more difficulty w/word finding. PT-OP-E Functional Tests Start: 10/07/22 18:09 Freq: Status: Active Protocol: Document 02/25/23 11:37 [facility] (Rec: 02/25/23 13:57 [facility] [id number]) Functional Tests 6 Minute Walk Test Distance 834ft-pt caught foot on floor mult times, lurching fwd requiring assist Device Used none 30 Second Sit to Stand Test Score 5x Comments w/hands on silver chair Dynamic Gait Index (DGI) Score 16/24 Five Times Sit to Stand Test Score 30 sec Comments w/hands on silver chair Tinetti Balance and Gait Assessment Balance Score 13 Gait Score 10 Composite Score 23 PT-OP-G Mobility & Gait Start: 10/07/22 18:09 Freq: Status: Active Protocol: Document 10/08/22 12:45 [facility] (Rec: 10/08/22 13:39 [facility] [id number]) OP Gait Assessment Comments Gait Comments Pt uses cane out side of house . Dec steplength and clearance B overall dec push off. PT-OP-J Posture/Palpation/Skin Start: 10/07/22 18:09 Freq: Status: Active Protocol: Document 10/08/22 12:45 [facility] (Rec: 10/08/22 13:39 [facility] [id number]) Posture Evaluation Augusto Postural Classification System Lumbar Protective Mechanism Left AP 0 Lumbar Protective Mechanism Right AP 0 Lumbar Protective Mechanism Left PA 0 Lumbar Protective Mechanism Right PA 0 Comments Posture Comments ant/ant augusto postural classifcation system; flexed at hips and inc kyphosis w/fwd head PT-OP-M Strength Start: 10/07/22 18:09 Freq: Status: Active Protocol: Document 10/08/22 12:45 [facility] (Rec: 10/08/22 13:39 [facility] [id number]) Hip Strength Hip Manual Muscle Testing Right Flexion (L2) 4- Good- Abduction 3+ Fair+ External Rotation 3- Fair- Internal Rotation 4- Good- Left Flexion (L2) 4- Good- Abduction 3+ Fair+ Internal Rotation 4 Good Knee Strength Knee Manual Muscle Testing Right Flexion (S2) 3+ Fair+ Extension (L3) 4- Good- Left Flexion (S2) 4- Good- Extension (L3) 4- Good- Ankle/Foot Strength Ankle and Foot Manual Muscle Testing Right Dorsiflexion (L4) 4 Good Plantarflexion (S1) 3 Fair Left Dorsiflexion (L4) 4 Good Plantarflexion (S1) 3 Fair Comments able to do 2x B PT-OP-Q Treatments Start: 10/07/22 18:09 Freq: Status: Active Protocol: Document 02/25/23 11:37 [facility] (Rec: 02/25/23 13:57 [facility] [id number]) Neuro Re-Education Treatment Balance Activities testing Comments Tinnetti, DGI as above hurdles Equipment 6 hurdles Comments fwd over hurdles recip w/rail prn. x8 side step over hand on rail prn x2 B- foot pads down to cue where to put feet down PT-OP-T Assessment and Plan Start: 10/07/22 18:09 Freq: Status: Active Protocol: Document 02/25/23 11:37 [facility] (Rec: 02/25/23 13:57 [facility] [id number]) Physical Therapy Assessment Goals sit to stands Impairment 3x in 30 sec Impairment 11 is age related norms Short Term Goal (STG) Pt will be able to do at least 6 sit to stands in 30 sec to show dec risk for falls and inc LE strength. 12/21- still limited 02/25-needs UEs STG Duration 03/24 Half-Way Goal (LTG) Pt will be able to do at least 9 sit to stands in 30 sec to show dec risk for falls and inc LE strength. LTG Duration 04/19 balance Short Term Goal (STG) Pt will improve score on Tinneti to at least 24/28 to show low risk for falls 12/21- 02/25- STG Duration 03/19 Half-Way Goal (LTG) Pt will score at least 20/24 on DGI to show dec risk for falls. 12/21- 02/25- LTG Duration 05/06 walking Impairment 6 min walk-981ft w/SPC Impairment 1017 back fatigue at 2.5 min starting and starting w/dec R stance time & lat lean Short Term Goal (STG) Pt will improve 6 min walk test to at least 1150ft to show improved basic daily function. 12/21-1011 ft 02/25-834ft w/o SPC but did cont to catch foot STG Duration 03/19 Casting Tester Goal (LTG) Pt will improve 6 min walk test to at least 1350ft w/o any catching his foot on the ground to show improved basic daily function. LTG Duration 05/06 Assessment Summary Assessment Pt demonstrated dec strength today and showed more difficulty w/motor planning and following commands along w /more difficulty w/his verbal responses to PT. He has not been seen in over a month d/t pt being on vacation. He would benefit from cont PT in order to resume working on his balance and gait along w/LE strength to improve safety in the community and slow his motor decline w/his dx of dementia. Physical Therapy Plan Frequency and Duration Frequency of Treatment 1-2x/wk Duration of treatment (weeks) 10 Plan of Care Start Date 02/25/23 Plan of Care End Date 05/06/23 Therapeutic Interventions Therapeutic Interventions Balance Training,Gait Training ,Home Exercise Program,Joint Mobilizations,Manual Therapy, Neuromuscular Re-education, Patient/Caregiver Education, Self-Care/Home Management,Soft Tissue Mobilization,Taping, Therapeutic Activities, Therapeutic Exercises, Vestibular Rehabilitation Modalities Cold Pack/Ice Massage,Electric Stimulation,Hot Packs, Traction- Mechanical, Ultrasound Other Therapeutic Interventions 2x/wk for 5 wks then 1x/wk for 7 wks Next Visit Focus/Plan Next Note Type Treatment Note Next Visit Plan hurdles for gait, balance board, sport cord resisted gait; review HEP as needed: sit to stands, standing DF, standing july, bridges, tandem balance at corner/ counter
--- NOTE | 2023-02-25 13:57 | PT.OPPOC ---
Physical, Occupational & Speech Therapy At [facility] Current Diagnoses Pain in right hip (02/25/23) Low back pain, unspecified (02/25/23) Difficulty in walking, not elsewhere classified (02/25/23) Other abnormalities of gait and mobility (02/25/23) Unspecified abnormalities of gait and mobility (02/25/23) Abnormal posture (02/25/23) Weakness (02/25/23) Visit Care Team Role Provider Type Mynor Rai DO Family Provider Physician Primary Care Provider Specialty: Family Practice Address: [address] [place] [address], [id number] Email: Kelly Norman DO Attending Provider Physician Referring Provider Specialty: Medical Address: [address] [place] [address], [address], [place], [address] Email: [email or web address] Plan Of Care PT-OP-T Assessment and Plan Start: 10/07/22 18:09 Freq: Status: Active Protocol: Document 02/25/23 11:37 [facility] (Rec: 02/25/23 13:57 [facility] [id number]) Physical Therapy Assessment Goals sit to stands Impairment 3x in 30 sec Impairment 11 is age related norms Short Term Goal (STG) Pt will be able to do at least 6 sit to stands in 30 sec to show dec risk for falls and inc LE strength. 12/21- still limited 02/25-needs UEs STG Duration 03/24 Machine Stone Polisher Apprentice Goal (LTG) Pt will be able to do at least 9 sit to stands in 30 sec to show dec risk for falls and inc LE strength. LTG Duration 04/19 balance Short Term Goal (STG) Pt will improve score on Tinneti to at least 24 to show low risk for falls 12/21- 02/25- STG Duration 03/19 Custodial Goal (LTG) Pt will score at least 20/24 on DGI to show dec risk for falls. 12/21- 02/25- LTG Duration 05/06 walking Impairment 6 min walk-981ft w/SPC Impairment 1017 back fatigue at 2.5 min starting and starting w/dec R stance time & lat lean Short Term Goal (STG) Pt will improve 6 min walk test to at least 1150ft to show improved basic daily function. 12/21-1011 ft 02/25-834ft w/o SPC but did cont to catch foot STG Duration 03/19 Machine Stone Polisher Apprentice Goal (LTG) Pt will improve 6 min walk test to at least 1350ft w/o any catching his foot on the ground to show improved basic daily function. LTG Duration 05/06 Assessment Summary Assessment Pt demonstrated dec strength today and showed more difficulty w/motor planning and following commands along w /more difficulty w/his verbal responses to PT. He has not been seen in over a month d/t pt being on vacation. He would benefit from cont PT in order to resume working on his balance and gait along w/LE strength to improve safety in the community and slow his motor decline w/his dx of dementia. Physical Therapy Plan Frequency and Duration Frequency of Treatment 1-2x/wk Duration of treatment (weeks) 10 Plan of Care Start Date 02/25/23 Plan of Care End Date 05/06/23 Therapeutic Interventions Therapeutic Interventions Balance Training,Gait Training ,Home Exercise Program,Joint Mobilizations,Manual Therapy, Neuromuscular Re-education, Patient/Caregiver Education, Self-Care/Home Management,Soft Tissue Mobilization,Taping, Therapeutic Activities, Therapeutic Exercises, Vestibular Rehabilitation Modalities Cold Pack/Ice Massage,Electric Stimulation,Hot Packs, Traction- Mechanical, Ultrasound Other Therapeutic Interventions 2x/wk for 5 wks then 1x/wk for 7 wks Next Visit Focus/Plan Next Note Type Treatment Note Next Visit Plan hurdles for gait, balance board, sport cord resisted gait; review HEP as needed: sit to stands, standing DF, standing july, bridges, tandem balance at corner/ counter Plan of Care Dates Plan of Care Start Date 02/25/23 Plan of Care End Date 05/06/23 Electronically Signed by: Reina Rider, PT 02/25/23 [id number] If you are in agreement with this Plan of Care, please return a signed and dated copy. I have reviewed this Plan of Care and certify that the skilled therapy services above are required to meet the patient?s needs. Physician Signature Date Printed Name and Credentials Clinical Instructor Signature Printed Name and Credentials
--- NOTE | 2023-03-01 18:09 | PT.OTN ---
Addendum entered and electronically signed by Reina Rider, PT 03/02/23 18:49: PT direct supervision and direction to PT student. Original Note: Current Diagnoses Pain in right hip (03/01/23) Low back pain, unspecified (03/01/23) Difficulty in walking, not elsewhere classified (03/01/23) Other abnormalities of gait and mobility (03/01/23) Unspecified abnormalities of gait and mobility (03/01/23) Abnormal posture (03/01/23) Weakness (03/01/23) Physical Therapy Treatment Note PT-OP-A Visit Information Start: 10/07/22 18:09 Freq: Status: Active Protocol: Document 03/01/23 12:02 BS (Rec: 03/01/23 12:21 BS [id number]) Out-Patient Physical Therapy Visit Information Visit Information Visit Type Treatment Note Visit Note 10/17 Visit Start Time 10:50 Visit Stop Time 11:32 Total Visit Minutes 42 Visit Number 12 Number of HOGSHEAD SALVAGE Visits 0 PT-OP-B Current Condition Start: 10/07/22 18:09 Freq: Status: Active Protocol: Document 10/08/22 12:45 [facility] (Rec: 10/08/22 13:39 [facility] [id number]) Current Condition History of Current Condition Current Complaints back pain, R hip pain, gait abnormalities, balance dec History of Current Condition Pt reports he has had a couple instances of falling where he is in enclosed spaces and falling backwards. He does note he has been catching his feet. His notes he has not been falling too much recently, but the other night admits that after watching a bit of TV, he stood and ended up falling back nto the couch. He is still seeing a DO for Dr. Norman and Dr. Rai [facility] has been helpful. This helps his back pain be less and R hip pain dec. He notes that sometimes doing ADLs and moves the wrong way, he has spasms to lat hip. he was floating a lot on recent cruises and that seems to help. He did try going to pool to swim and was in more pain. he is getting a walk in tub at home. notes his gait has slowed down now. History: R achilles tendon surgery, R post hip replacement, A fib, memory loss, neck pain, neuropathy, back pain, dizziness and falls Treatment Goals Patient/Caregiver Goals improve stride length, improve balance, dec back/hip pain. Prior Functional Status Baseline Function- Other In the past few years, pt has overall declined. About 2 years ago, pt was able to go on long walks w/his wifeand had a dec instance of falls. Pt has also had a decline in memory and cognitive function, which has affected his mobility and safety. PT-OP-C Subjective Start: 10/07/22 18:09 Freq: Status: Active Protocol: Document 03/01/23 12:02 BS (Rec: 03/01/23 12:21 [id number]) OP-PT Subjective Patient Comments Patient Comments reports pt has been doing better since last visit and believes he has been struggling with jet lag from their trip a few weeks ago. pt went on walk with and seemed to do much better with balance and gait PT-OP-E Functional Tests Start: 10/07/22 18:09 Freq: Status: Active Protocol: Document 02/25/23 11:37 [facility] (Rec: 02/25/23 13:57 [facility] [id number]) Functional Tests 6 Minute Walk Test Distance 834ft-pt caught foot on floor mult times, lurching fwd requiring assist Device Used none 30 Second Sit to Stand Test Score 5x Comments w/hands on silver chair Dynamic Gait Index (DGI) Score 16/24 Five Times Sit to Stand Test Score 30 sec Comments w/hands on silver chair Tinetti Balance and Gait Assessment Balance Score 13 Gait Score 10 Composite Score 23 PT-OP-G Mobility & Gait Start: 10/07/22 18:09 Freq: Status: Active Protocol: Document 10/08/22 12:45 [facility] (Rec: 10/08/22 13:39 [facility] [id number]) OP Gait Assessment Comments Gait Comments Pt uses cane out side of house . Dec steplength and clearance B overall dec push off. PT-OP-J Posture/Palpation/Skin Start: 10/07/22 18:09 Freq: Status: Active Protocol: Document 10/08/22 12:45 [facility] (Rec: 10/08/22 13:39 [facility] [id number]) Posture Evaluation Augusto Postural Classification System Lumbar Protective Mechanism Left AP 0 Lumbar Protective Mechanism Right AP 0 Lumbar Protective Mechanism Left PA 0 Lumbar Protective Mechanism Right PA 0 Comments Posture Comments ant/ant augusto postural classifcation system; flexed at hips and inc kyphosis w/fwd head PT-OP-M Strength Start: 10/07/22 18:09 Freq: Status: Active Protocol: Document 10/08/22 12:45 [facility] (Rec: 10/08/22 13:39 [facility] [id number]) Hip Strength Hip Manual Muscle Testing Right Flexion (L2) 4- Good- Abduction 3+ Fair+ External Rotation 3- Fair- Internal Rotation 4- Good- Left Flexion (L2) 4- Good- Abduction 3+ Fair+ Internal Rotation 4 Good Knee Strength Knee Manual Muscle Testing Right Flexion (S2) 3+ Fair+ Extension (L3) 4- Good- Left Flexion (S2) 4- Good- Extension (L3) 4- Good- Ankle/Foot Strength Ankle and Foot Manual Muscle Testing Right Dorsiflexion (L4) 4 Good Plantarflexion (S1) 3 Fair Left Dorsiflexion (L4) 4 Good Plantarflexion (S1) 3 Fair Comments able to do 2x B PT-OP-Q Treatments Start: 10/07/22 18:09 Freq: Status: Active Protocol: Document 03/01/23 12:02 BS (Rec: 03/01/23 12:21 BS [id number]) Cardio Equipment Recumbent Elliptical (Biodex) Duration (Minutes) 6 Resistance 3-5 Seat Position 13 Other pain in R shld, took away UEs Therapeutic Exercises Standing Exercises sit to stands Standing Exercise Name sit<>stands Side bilateral Equipment Used adjustable mat table Reps/Minutes x10 Comments progressively lower heights Neuro Re-Education Treatment Balance Activities fwd/back Details forward only Comments 1. fwd july with high knees 2x25ft 2. fwd walk with intermittent stops & turns 4x25ft foam Comments 1. stair taps standing on blue foam w/ 1HR x8 B 2. stair taps standing on blue foam w/ no HR x6 B - significant difficulty w/ stance on LLE hurdles Equipment 6 hurdles Comments 1. fwd over hurdles recip w/ rail prn. x6 2. side step over hand on rail prn x3ea - cues to take big wide steps PT-OP-T Assessment and Plan Start: 10/07/22 18:09 Freq: Status: Active Protocol: Document 03/01/23 12:02 BS (Rec: 03/01/23 12:21 BS [id number]) Physical Therapy Assessment Goals sit to stands Impairment 3x in 30 sec Impairment 11 is age related norms Short Term Goal (STG) Pt will be able to do at least 6 sit to stands in 30 sec to show dec risk for falls and inc LE strength. 12/21- still limited 02/25-needs UEs STG Duration 03/24 Senior Care Goal (LTG) Pt will be able to do at least 9 sit to stands in 30 sec to show dec risk for falls and inc LE strength. LTG Duration 04/19 balance Short Term Goal (STG) Pt will improve score on Tinneti to at least 24/ to show low risk for falls 12/21- 02/25- STG Duration 03/19 Senior Care Goal (LTG) Pt will score at least 20/24 on DGI to show dec risk for falls. 12/21- 02/25- LTG Duration 05/06 walking Impairment 6 min walk-981ft w/SPC Impairment 1017 back fatigue at 2.5 min starting and starting w/dec R stance time & lat lean Short Term Goal (STG) Pt will improve 6 min walk test to at least 1150ft to show improved basic daily function. 12/21-1011 ft 02/25-834ft w/o SPC but did cont to catch foot STG Duration 03/19 Mayonnaise Mixer Goal (LTG) Pt will improve 6 min walk test to at least 1350ft w/o any catching his foot on the ground to show improved basic daily function. LTG Duration 05/06 Assessment Summary Assessment pt demonstrated improved strength and balance today compared to last session. Able to self correct foot position on hurdles occassionally w/o cues although still requires significant cueing throughout session. As pt fatigued, ability to follow commands dec , often requiring multiple reps of single step commands before able to complete by end of session. Pt responds well to cue to step big when beginning to shuffle feet some . Physical Therapy Plan Frequency and Duration Frequency of Treatment 1-2x/wk Duration of treatment (weeks) 10 Plan of Care Start Date 02/25/23 Plan of Care End Date 05/06/23 Next Visit Focus/Plan Next Note Type Treatment Note Next Visit Plan hurdles for gait, balance board, sport cord resisted gait; review HEP as needed: sit to stands, standing DF, standing march, bridges, tandem balance at corner/ counter
--- NOTE | 2023-03-08 12:02 | PT.OTN ---
Addendum entered and electronically signed by Reina Rider, PT 03/08/23 12:03: PT direct supervision and direction to PT student. Original Note: Current Diagnoses Pain in right hip (03/08/23) Low back pain, unspecified (03/08/23) Difficulty in walking, not elsewhere classified (03/08/23) Other abnormalities of gait and mobility (03/08/23) Unspecified abnormalities of gait and mobility (03/08/23) Abnormal posture (03/08/23) Weakness (03/08/23) Physical Therapy Treatment Note PT-OP-A Visit Information Start: 10/07/22 18:09 Freq: Status: Active Protocol: Document 03/08/23 11:39 BS (Rec: 03/08/23 11:54 BS [id number]) Out-Patient Physical Therapy Visit Information Visit Information Visit Type Treatment Note Visit Note 11/16 Visit Start Time 10:46 Visit Stop Time 11:30 Total Visit Minutes 44 Visit Number 13 Number of HVAC MANAGER Visits 0 PT-OP-B Current Condition Start: 10/07/22 18:09 Freq: Status: Active Protocol: Document 10/08/22 12:45 [facility] (Rec: 10/08/22 13:39 [facility] [id number]) Current Condition History of Current Condition Current Complaints back pain, R hip pain, gait abnormalities, balance dec History of Current Condition Pt reports he has had a couple instances of falling where he is in enclosed spaces and falling backwards. He does note he has been catching his feet. His notes he has not been falling too much recently, but the other night admits that after watching a bit of TV, he stood and ended up falling back nto the couch. He is still seeing a DO for Dr. Norman and Dr. Rai [facility] has been helpful. This helps his back pain be less and R hip pain dec. He notes that sometimes doing ADLs and moves the wrong way, he has spasms to lat hip. he was floating a lot on recent cruises and that seems to help. He did try going to pool to swim and was in more pain. he is getting a walk in tub at home. notes his gait has slowed down now. History: R achilles tendon surgery, R post hip replacement, A fib, memory loss, neck pain, neuropathy, back pain, dizziness and falls Treatment Goals Patient/Caregiver Goals improve stride length, improve balance, dec back/hip pain. Prior Functional Status Baseline Function- Other In the past few years, pt has overall declined. About 2 years ago, pt was able to go on long walks w/his wifeand had a dec instance of falls. Pt has also had a decline in memory and cognitive function, which has affected his mobility and safety. PT-OP-C Subjective Start: 10/07/22 18:09 Freq: Status: Active Protocol: Document 03/08/23 11:39 BS (Rec: 03/08/23 11:54 BS [id number]) OP-PT Subjective Patient Comments Patient Comments Pts reported that Burt starts injections next week that are suppsoed to help with memory issues. Works on sit> stands during day still and recently upped medication to help with coordination. PT-OP-E Functional Tests Start: 10/07/22 18:09 Freq: Status: Active Protocol: Document 02/25/23 11:37 [facility] (Rec: 02/25/23 13:57 [facility] [id number]) Functional Tests 6 Minute Walk Test Distance 834ft-pt caught foot on floor mult times, lurching fwd requiring assist Device Used none 30 Second Sit to Stand Test Score 5x Comments w/hands on silver chair Dynamic Gait Index (DGI) Score 16/24 Five Times Sit to Stand Test Score 30 sec Comments w/hands on silver chair Tinetti Balance and Gait Assessment Balance Score 13 Gait Score 10 Composite Score 23 PT-OP-G Mobility & Gait Start: 10/07/22 18:09 Freq: Status: Active Protocol: Document 10/08/22 12:45 [facility] (Rec: 10/08/22 13:39 [facility] [id number]) OP Gait Assessment Comments Gait Comments Pt uses cane out side of house . Dec steplength and clearance B overall dec push off. PT-OP-J Posture/Palpation/Skin Start: 10/07/22 18:09 Freq: Status: Active Protocol: Document 10/08/22 12:45 [facility] (Rec: 10/08/22 13:39 [facility] [id number]) Posture Evaluation Augusto Postural Classification System Lumbar Protective Mechanism Left AP 0 Lumbar Protective Mechanism Right AP 0 Lumbar Protective Mechanism Left PA 0 Lumbar Protective Mechanism Right PA 0 Comments Posture Comments ant/ant augusto postural classifcation system; flexed at hips and inc kyphosis w/fwd head PT-OP-M Strength Start: 10/07/22 18:09 Freq: Status: Active Protocol: Document 10/08/22 12:45 [facility] (Rec: 10/08/22 13:39 [facility] [id number]) Hip Strength Hip Manual Muscle Testing Right Flexion (L2) 4- Good- Abduction 3+ Fair+ External Rotation 3- Fair- Internal Rotation 4- Good- Left Flexion (L2) 4- Good- Abduction 3+ Fair+ Internal Rotation 4 Good Knee Strength Knee Manual Muscle Testing Right Flexion (S2) 3+ Fair+ Extension (L3) 4- Good- Left Flexion (S2) 4- Good- Extension (L3) 4- Good- Ankle/Foot Strength Ankle and Foot Manual Muscle Testing Right Dorsiflexion (L4) 4 Good Plantarflexion (S1) 3 Fair Left Dorsiflexion (L4) 4 Good Plantarflexion (S1) 3 Fair Comments able to do 2x B PT-OP-Q Treatments Start: 10/07/22 18:09 Freq: Status: Active Protocol: Document 03/08/23 11:39 BS (Rec: 03/08/23 11:54 BS [id number]) Cardio Equipment Recumbent Bicycle Duration (Minutes) 6 Resistance 6 Seat Position 11 Therapeutic Exercises Standing Exercises reisted walk Standing Exercise Name Walk with 2lb ankle weight B Side bilateral Equipment Used 2 lb ankle weights Reps/Minutes x 1 big lap of entire gym Comments cues to drive knees up july Standing Exercise Name july with B ankle weight Side bilateral Equipment Used 2lb ankle weights Reps/Minutes 4x20' Comments hand target for knees to hit Neuro Re-Education Treatment Balance Activities SLS Comments 1. cone taps w/ 1HR ( directions to tap spec color) 2. multi-step cone taps w/1HR 3. cone taps w/o HR solid ground Details balloon baseball w/ dowel Comments 1. tandem B 2. NBOS hurdles Equipment 6 hurdles Comments 1. fwd over hurdles recip w/ rail prn x5 w/ B 2lb ankle weight 2. side step over hurdles, HR prn x3ea w/ B 2lb ankle weight and visual foot targets PT-OP-T Assessment and Plan Start: 10/07/22 18:09 Freq: Status: Active Protocol: Document 03/08/23 11:39 BS (Rec: 03/08/23 11:54 BS [id number]) Physical Therapy Assessment Goals sit to stands Impairment 3x in 30 sec Impairment 11 is age related norms Short Term Goal (STG) Pt will be able to do at least 6 sit to stands in 30 sec to show dec risk for falls and inc LE strength. 12/21- still limited 02/25-needs UEs STG Duration 03/24 Fdc Goal (LTG) Pt will be able to do at least 9 sit to stands in 30 sec to show dec risk for falls and inc LE strength. LTG Duration 04/19 balance Short Term Goal (STG) Pt will improve score on Tinneti to at least 24/28 to show low risk for falls 12/21- 02/25- STG Duration 03/19 Vamp Throater Goal (LTG) Pt will score at least 20/24 on DGI to show dec risk for falls. 12/21- 02/25- LTG Duration 05/06 walking Impairment 6 min walk-981ft w/SPC Impairment 1017 back fatigue at 2.5 min starting and starting w/dec R stance time & lat lean Short Term Goal (STG) Pt will improve 6 min walk test to at least 1150ft to show improved basic daily function. 12/21-1011 ft 02/25-834ft w/o SPC but did cont to catch foot STG Duration 03/19 Vamp Throater Goal (LTG) Pt will improve 6 min walk test to at least 1350ft w/o any catching his foot on the ground to show improved basic daily function. LTG Duration 05/06 Assessment Summary Assessment Pt had intermittent difficulty with following 1-2 step commands today. Pt responds well to visual cues and targets during activities in order to get desired stance/ mvmt. Pt improved with SLS control during cone taps depite addition of cognitive task. Pt was able to complete 2-step cone taps (i.e. tap yellow and then tap blue) 75% of the time. With fatigue pt struggled with following all commands. pt had inc difficulty with tandem stance with RLE fwd as well as NBOS. Pt continues to be cooperative and make progress with PT. Physical Therapy Plan Frequency and Duration Frequency of Treatment 1-2x/wk Duration of treatment (weeks) 10 Plan of Care Start Date 02/25/23 Plan of Care End Date 05/06/23 Next Visit Focus/Plan Next Note Type Treatment Note Next Visit Plan hurdles for gait, balance board, sport cord resisted gait; review HEP as needed: sit to stands, standing DF, standing july, bridges, tandem balance at corner/ counter Balance/cog tasks: dyer bag toss on same color dots while on foam, cone taps, p/u objects from ground
--- NOTE | 2023-03-15 15:13 | PT.OTN ---
Addendum entered and electronically signed by Reina Rider, PT 03/16/23 08:32: PT direct supervision and direction to PT student. Original Note: Current Diagnoses Pain in right hip (03/15/23) Low back pain, unspecified (03/15/23) Difficulty in walking, not elsewhere classified (03/15/23) Other abnormalities of gait and mobility (03/15/23) Unspecified abnormalities of gait and mobility (03/15/23) Abnormal posture (03/15/23) Weakness (03/15/23) Physical Therapy Treatment Note PT-OP-A Visit Information Start: 10/07/22 18:09 Freq: Status: Active Protocol: Document 03/15/23 09:50 BS (Rec: 03/15/23 10:04 BS [id number]) Out-Patient Physical Therapy Visit Information Visit Information Visit Type Treatment Note Visit Note 12/17 Visit Start Time 09:05 Visit Stop Time 09:50 Total Visit Minutes 45 Visit Number 14 Number of FACTORY ENGINEER Visits 0 PT-OP-B Current Condition Start: 10/07/22 18:09 Freq: Status: Active Protocol: Document 10/08/22 12:45 [facility] (Rec: 10/08/22 13:39 [facility] [id number]) Current Condition History of Current Condition Current Complaints back pain, R hip pain, gait abnormalities, balance dec History of Current Condition Pt reports he has had a couple instances of falling where he is in enclosed spaces and falling backwards. He does note he has been catching his feet. His notes he has not been falling too much recently, but the other night admits that after watching a bit of TV, he stood and ended up falling back nto the couch. He is still seeing a DO for Dr. Norman and [facility]. [facility] has been helpful. This helps his back pain be less and R hip pain dec. He notes that sometimes doing ADLs and moves the wrong way, he has spasms to lat hip. he was floating a lot on recent cruises and that seems to help. He did try going to pool to swim and was in more pain. he is getting a walk in tub at home. notes his gait has slowed down now. History: R achilles tendon surgery, R post hip replacement, A fib, memory loss, neck pain, neuropathy, back pain, dizziness and falls Treatment Goals Patient/Caregiver Goals improve stride length, improve balance, dec back/hip pain. Prior Functional Status Baseline Function- Other In the past few years, pt has overall declined. About 2 years ago, pt was able to go on long walks w/his wifeand had a dec instance of falls. Pt has also had a decline in memory and cognitive function, which has affected his mobility and safety. PT-OP-C Subjective Start: 10/07/22 18:09 Freq: Status: Active Protocol: Document 03/15/23 09:50 BS (Rec: 03/15/23 10:04 BS [id number]) OP-PT Subjective Patient Comments Patient Comments Pts reports pt has sbeen doing well and they have been working on sit to stands and HEP at home. She would like to work on his mobility some. He also has a dental procedure coming up to pull out a molar. PT-OP-E Functional Tests Start: 10/07/22 18:09 Freq: Status: Active Protocol: Document 02/25/23 11:37 [facility] (Rec: 02/25/23 13:57 [facility] [id number]) Functional Tests 6 Minute Walk Test Distance 834ft-pt caught foot on floor mult times, lurching fwd requiring assist Device Used none 30 Second Sit to Stand Test Score 5x Comments w/hands on silver chair Dynamic Gait Index (DGI) Score 16/24 Five Times Sit to Stand Test Score 30 sec Comments w/hands on silver chair Tinetti Balance and Gait Assessment Balance Score 13 Gait Score 10 Composite Score 23 PT-OP-G Mobility & Gait Start: 10/07/22 18:09 Freq: Status: Active Protocol: Document 10/08/22 12:45 [facility] (Rec: 10/08/22 13:39 [facility] [id number]) OP Gait Assessment Comments Gait Comments Pt uses cane out side of house . Dec steplength and clearance B overall dec push off. PT-OP-J Posture/Palpation/Skin Start: 10/07/22 18:09 Freq: Status: Active Protocol: Document 10/08/22 12:45 [facility] (Rec: 10/08/22 13:39 [facility] [id number]) Posture Evaluation Augusto Postural Classification System Lumbar Protective Mechanism Left AP 0 Lumbar Protective Mechanism Right AP 0 Lumbar Protective Mechanism Left PA 0 Lumbar Protective Mechanism Right PA 0 Comments Posture Comments ant/ant augusto postural classifcation system; flexed at hips and inc kyphosis w/fwd head PT-OP-M Strength Start: 10/07/22 18:09 Freq: Status: Active Protocol: Document 10/08/22 12:45 [facility] (Rec: 10/08/22 13:39 [facility] [id number]) Hip Strength Hip Manual Muscle Testing Right Flexion (L2) 4- Good- Abduction 3+ Fair+ External Rotation 3- Fair- Internal Rotation 4- Good- Left Flexion (L2) 4- Good- Abduction 3+ Fair+ Internal Rotation 4 Good Knee Strength Knee Manual Muscle Testing Right Flexion (S2) 3+ Fair+ Extension (L3) 4- Good- Left Flexion (S2) 4- Good- Extension (L3) 4- Good- Ankle/Foot Strength Ankle and Foot Manual Muscle Testing Right Dorsiflexion (L4) 4 Good Plantarflexion (S1) 3 Fair Left Dorsiflexion (L4) 4 Good Plantarflexion (S1) 3 Fair Comments able to do 2x B PT-OP-Q Treatments Start: 10/07/22 18:09 Freq: Status: Active Protocol: Document 03/15/23 09:50 BS (Rec: 03/15/23 10:04 BS [id number]) Cardio Equipment Recumbent Bicycle Duration (Minutes) 6 Resistance 5 Seat Position 11 Other dec resistance d/t some knee pain Therapeutic Exercises Sitting Exercises Hip flex strength Sitting Exercise Name Seated marches Side bilateral Reps/Minutes x10 ea Comments did best w/ visual target HS strength Sitting Exercise Name Seated HS curl Resistance orange band Reps/Minutes x10ea Comments cues to straighten leg slowly Standing Exercises reisted walk Standing Exercise Name March Walk w/o resistance Side bilateral Equipment Used gait belt Reps/Minutes x 2 big lap of entire gym Comments cues to drive knees up sit to stands Standing Exercise Name sit<>stands Side bilateral Equipment Used adjustable mat table Reps/Minutes x10 Comments prog lower heights, no hands Neuro Re-Education Treatment Balance Activities SLS Details at stairs, HR PRN Comments 1. double stairs taps B x15ea 2. step ups w/ slow ecc B x12ea - prog to no HR 3. Hip flex 3s iso hold off 2nd step B x6ea extra time needed on all for cueing and repeated single step commands PT-OP-T Assessment and Plan Start: 10/07/22 18:09 Freq: Status: Active Protocol: Document 03/15/23 09:50 BS (Rec: 03/15/23 10:04 BS [id number]) Physical Therapy Assessment Goals sit to stands Impairment 3x in 30 sec Impairment 11 is age related norms Short Term Goal (STG) Pt will be able to do at least 6 sit to stands in 30 sec to show dec risk for falls and inc LE strength. 12/21- still limited 02/25-needs UEs STG Duration 03/24 Mcfp Goal (LTG) Pt will be able to do at least 9 sit to stands in 30 sec to show dec risk for falls and inc LE strength. LTG Duration 04/19 balance Short Term Goal (STG) Pt will improve score on Tinneti to at least 24/28 to show low risk for falls 12/21- 02/25- STG Duration 03/19 Mcfp Goal (LTG) Pt will score at least 20/24 on DGI to show dec risk for falls. 12/21- 02/25- LTG Duration 05/06 walking Impairment 6 min walk-981ft w/SPC Impairment 1017 back fatigue at 2.5 min starting and starting w/dec R stance time & lat lean Short Term Goal (STG) Pt will improve 6 min walk test to at least 1150ft to show improved basic daily function. 12/21-1011 ft 02/25-834ft w/o SPC but did cont to catch foot STG Duration 03/19 Top And Trim Worker Goal (LTG) Pt will improve 6 min walk test to at least 1350ft w/o any catching his foot on the ground to show improved basic daily function. LTG Duration 05/06 Assessment Summary Assessment Session today focused on BLE strengthening to help with overall strength and stability . Pt continues to struggle with coordination and command following, w/ multiple trials needed at times to get desired mvmt/result. Pt was able to complete 10 sit>stands w/ no hands and progressively lower mat heights w/o rest. Pt continues to show improvement in both SL balance and BLE strength, w/ dec in LOB episodes during walk at end compared to previous sessions. Physical Therapy Plan Frequency and Duration Frequency of Treatment 1-2x/wk Duration of treatment (weeks) 10 Plan of Care Start Date 02/25/23 Plan of Care End Date 05/06/23 Next Visit Focus/Plan Next Note Type Treatment Note Next Visit Plan Add stretching HEP for hips and back: mau test, seated hamstring, lying figure 4. Hurdles for gait, balance board, sport cord resisted gait; review HEP as needed: sit to stands, standing DF, standing march, bridges, tandem balance at corner/ counter Balance/cog tasks: dyer bag toss on same color dots while on foam, cone taps, p/u objects from ground
--- NOTE | 2023-03-22 18:09 | PT.OTN ---
Addendum entered and electronically signed by Reina Rider, PT 03/23/23 09:20: PT direct supervision and direction to PT student. Original Note: Current Diagnoses Pain in right hip (03/22/23) Low back pain, unspecified (03/22/23) Difficulty in walking, not elsewhere classified (03/22/23) Other abnormalities of gait and mobility (03/22/23) Unspecified abnormalities of gait and mobility (03/22/23) Abnormal posture (03/22/23) Weakness (03/22/23) Physical Therapy Treatment Note PT-OP-A Visit Information Start: 10/07/22 18:09 Freq: Status: Active Protocol: Document 03/22/23 09:56 BS (Rec: 03/22/23 13:36 BS [id number]) Out-Patient Physical Therapy Visit Information Visit Information Visit Type Treatment Note Visit Note 01/17 Visit Start Time 09:46 Visit Stop Time 10:30 Total Visit Minutes 44 Visit Number 15 Number of CUSTOMER SERVICE PROFESSIONAL Visits 0 PT-OP-B Current Condition Start: 10/07/22 18:09 Freq: Status: Active Protocol: Document 10/08/22 12:45 [facility] (Rec: 10/08/22 13:39 [facility] [id number]) Current Condition History of Current Condition Current Complaints back pain, R hip pain, gait abnormalities, balance dec History of Current Condition Pt reports he has had a couple instances of falling where he is in enclosed spaces and falling backwards. He does note he has been catching his feet. His notes he has not been falling too much recently, but the other night admits that after watching a bit of TV, he stood and ended up falling back nto the couch. He is still seeing a DO [facility] Dr[facility] Norman [facility]. This helps his back pain be less and R hip pain dec. He notes that sometimes doing ADLs and moves the wrong way, he has spasms to lat hip. he was floating a lot on recent cruises and that seems to help. He did try going to pool to swim and was in more pain. he is getting a walk in tub at home. notes his gait has slowed down now. History: R achilles tendon surgery, R post hip replacement, A fib, memory loss, neck pain, neuropathy, back pain, dizziness and falls Treatment Goals Patient/Caregiver Goals improve stride length, improve balance, dec back/hip pain. Prior Functional Status Baseline Function- Other In the past few years, pt has overall declined. About 2 years ago, pt was able to go on long walks w/his wifeand had a dec instance of falls. Pt has also had a decline in memory and cognitive function, which has affected his mobility and safety. PT-OP-C Subjective Start: 10/07/22 18:09 Freq: Status: Active Protocol: Document 03/22/23 09:56 BS (Rec: 03/22/23 13:36 BS [id number]) OP-PT Subjective Patient Comments Patient Comments Pt reports headache in B temples that has been there for the past week or so. Does not wake him up at night. PT-OP-E Functional Tests Start: 10/07/22 18:09 Freq: Status: Active Protocol: Document 02/25/23 11:37 [facility] (Rec: 02/25/23 13:57 [facility] [id number]) Functional Tests 6 Minute Walk Test Distance 834ft-pt caught foot on floor mult times, lurching fwd requiring assist Device Used none 30 Second Sit to Stand Test Score 5x Comments w/hands on silver chair Dynamic Gait Index (DGI) Score 16/24 Five Times Sit to Stand Test Score 30 sec Comments w/hands on silver chair Tinetti Balance and Gait Assessment Balance Score 13 Gait Score 10 Composite Score 23 PT-OP-G Mobility & Gait Start: 10/07/22 18:09 Freq: Status: Active Protocol: Document 10/08/22 12:45 [facility] (Rec: 10/08/22 13:39 [facility] [id number]) OP Gait Assessment Comments Gait Comments Pt uses cane out side of house . Dec steplength and clearance B overall dec push off. PT-OP-J Posture/Palpation/Skin Start: 10/07/22 18:09 Freq: Status: Active Protocol: Document 10/08/22 12:45 [facility] (Rec: 10/08/22 13:39 [facility] [id number]) Posture Evaluation Noel Postural Classification System Lumbar Protective Mechanism Left AP 0 Lumbar Protective Mechanism Right AP 0 Lumbar Protective Mechanism Left PA 0 Lumbar Protective Mechanism Right PA 0 Comments Posture Comments ant/ant noel postural classifcation system; flexed at hips and inc kyphosis w/fwd head PT-OP-M Strength Start: 10/07/22 18:09 Freq: Status: Active Protocol: Document 10/08/22 12:45 [facility] (Rec: 10/08/22 13:39 [facility] [id number]) Hip Strength Hip Manual Muscle Testing Right Flexion (L2) 4- Good- Abduction 3+ Fair+ External Rotation 3- Fair- Internal Rotation 4- Good- Left Flexion (L2) 4- Good- Abduction 3+ Fair+ Internal Rotation 4 Good Knee Strength Knee Manual Muscle Testing Right Flexion (S2) 3+ Fair+ Extension (L3) 4- Good- Left Flexion (S2) 4- Good- Extension (L3) 4- Good- Ankle/Foot Strength Ankle and Foot Manual Muscle Testing Right Dorsiflexion (L4) 4 Good Plantarflexion (S1) 3 Fair Left Dorsiflexion (L4) 4 Good Plantarflexion (S1) 3 Fair Comments able to do 2x B PT-OP-Q Treatments Start: 10/07/22 18:09 Freq: Status: Active Protocol: Document 03/22/23 09:56 BS (Rec: 03/22/23 13:36 BS [id number]) Cardio Equipment Recumbent Bicycle Duration (Minutes) 6 Resistance 6 Seat Position 10 Therapeutic Exercises Sitting Exercises HS stretch Sitting Exercise Name seated HS stretch Reps/Minutes x45s ea Comments cues for tolerable stretch Standing Exercises reisted walk Standing Exercise Name Speed walk no resistance Side bilateral Equipment Used gait belt Reps/Minutes x50ft Comments cues to walk quick hip flexor stretch Standing Exercise Name Hip flex stretch at rail Side bilateral Reps/Minutes x45s ea Comments cues for tolerable stretch and bend in front knee sit to stands Standing Exercise Name sit<>stands Side bilateral Equipment Used adjustable mat table Reps/Minutes x10, x8 Comments prog lower heights, no hands - lowest ~19.5in Neuro Re-Education Treatment Balance Activities SLS Equipment cones Reps/Duration 10 min Comments Cone taps with no HR, improved with reps PT-OP-T Assessment and Plan Start: 10/07/22 18:09 Freq: Status: Active Protocol: Document 03/22/23 09:56 BS (Rec: 03/22/23 13:36 BS [id number]) Physical Therapy Assessment Goals sit to stands Impairment 3x in 30 sec Impairment 11 is age related norms Short Term Goal (STG) Pt will be able to do at least 6 sit to stands in 30 sec to show dec risk for falls and inc LE strength. 12/21- still limited 02/25-needs UEs STG Duration 03/24 Prison Goal (LTG) Pt will be able to do at least 9 sit to stands in 30 sec to show dec risk for falls and inc LE strength. LTG Duration 04/19 balance Short Term Goal (STG) Pt will improve score on Tinneti to at least 24 to show low risk for falls 12/21- 02/25- STG Duration 03/19 Soccer Commentator Goal (LTG) Pt will score at least 20/ on DGI to show dec risk for falls. 12/21- 02/25- LTG Duration 05/06 walking Impairment 6 min walk-981ft w/SPC Impairment 1017 back fatigue at 2.5 min starting and starting w/dec R stance time & lat lean Short Term Goal (STG) Pt will improve 6 min walk test to at least 1150ft to show improved basic daily function. 12/21-1011 ft 02/25-834ft w/o SPC but did cont to catch foot STG Duration 03/19 Prison Goal (LTG) Pt will improve 6 min walk test to at least 1350ft w/o any catching his foot on the ground to show improved basic daily function. LTG Duration 05/06 Assessment Summary Assessment Pt seemed to be moving a bit slower today when walking around gym. Overall pt demonstrates improved activity tolerance and strength, baing able to complete 18 sit> stands in total and getting down to 19.5in mat height for final few reps. Pt continues to struggle with SLS jose l during initiation, but with inc reps is able to improve quality of mvmt. When cued to walk faster, pt was able to picker pace with only oneinstance of foot catching during change from carpet to hard floor. Pt requires extra time for cues and direction following for exercises. Physical Therapy Plan Frequency and Duration Frequency of Treatment 1-2x/wk Duration of treatment (weeks) 10 Plan of Care Start Date 02/25/23 Plan of Care End Date 05/06/23 Next Visit Focus/Plan Next Note Type Progress Note Next Visit Plan reasses HEP for hips and back: seated hamstring & standing hip flex stretch Hurdles for gait, balance board, sport cord resisted gait; review HEP as needed: sit to stands, standing DF, standing march, bridges, tandem balance at corner/ counter Balance/cog tasks: dyer bag toss on same color dots while on foam, cone taps, p/u objects from ground
--- NOTE | 2023-03-29 18:07 | PT.OTN ---
Addendum entered and electronically signed by Reina Rider, PT 03/30/23 08:03: PT direct supervision and direction to PT student. Original Note: Current Diagnoses Pain in right hip (03/29/23) Low back pain, unspecified (03/29/23) Difficulty in walking, not elsewhere classified (03/29/23) Other abnormalities of gait and mobility (03/29/23) Unspecified abnormalities of gait and mobility (03/29/23) Abnormal posture (03/29/23) Weakness (03/29/23) Physical Therapy Treatment Note PT-OP-A Visit Information Start: 10/07/22 18:09 Freq: Status: Active Protocol: Document 03/29/23 09:58 BS (Rec: 03/29/23 14:19 BS [id number]) Out-Patient Physical Therapy Visit Information Visit Information Visit Type Progress Note Visit Note 05/19 Visit Start Time 09:50 Visit Stop Time 10:31 Total Visit Minutes 41 Visit Number 16 Number of WOOD CARVING LATHE OPERATOR Visits 0 PT-OP-B Current Condition Start: 10/07/22 18:09 Freq: Status: Active Protocol: Document 10/08/22 12:45 [facility] (Rec: 10/08/22 13:39 [facility] [id number]) Current Condition History of Current Condition Current Complaints back pain, R hip pain, gait abnormalities, balance dec History of Current Condition Pt reports he has had a couple instances of falling where he is in enclosed spaces and falling backwards. He does note he has been catching his feet. His notes he has not been falling too much recently, but the other night admits that after watching a bit of TV, he stood and ended up falling back nto the couch. He is still seeing a DO for Dr. Norman and Dr. Rai [facility] has been helpful. This helps his back pain be less and R hip pain dec. He notes that sometimes doing ADLs and moves the wrong way, he has spasms to lat hip. he was floating a lot on recent cruises and that seems to help. He did try going to pool to swim and was in more pain. he is getting a walk in tub at home. notes his gait has slowed down now. History: R achilles tendon surgery, R post hip replacement, A fib, memory loss, neck pain, neuropathy, back pain, dizziness and falls Treatment Goals Patient/Caregiver Goals improve stride length, improve balance, dec back/hip pain. Prior Functional Status Baseline Function- Other In the past few years, pt has overall declined. About 2 years ago, pt was able to go on long walks w/his wifeand had a dec instance of falls. Pt has also had a decline in memory and cognitive function, which has affected his mobility and safety. PT-OP-C Subjective Start: 10/07/22 18:09 Freq: Status: Active Protocol: Document 03/29/23 09:58 BS (Rec: 03/29/23 14:19 BS [id number]) OP-PT Subjective Patient Comments Patient Comments No new changes to report today . PT-OP-E Functional Tests Start: 10/07/22 18:09 Freq: Status: Active Protocol: Document 03/29/23 09:58 BS (Rec: 03/29/23 14:19 BS [id number]) Functional Tests 6 Minute Walk Test Distance 955ft-pt caught foot on floor mult times, lurching fwd requiring assist Device Used none 30 Second Sit to Stand Test Score 5.5 Comments w/hands on silver chair Five Times Sit to Stand Test Score 25s Comments w/hands on silver chair PT-OP-G Mobility & Gait Start: 10/07/22 18:09 Freq: Status: Active Protocol: Document 10/08/22 12:45 [facility] (Rec: 10/08/22 13:39 [facility] [id number]) OP Gait Assessment Comments Gait Comments Pt uses cane out side of house . Dec steplength and clearance B overall dec push off. PT-OP-J Posture/Palpation/Skin Start: 10/07/22 18:09 Freq: Status: Active Protocol: Document 10/08/22 12:45 [facility] (Rec: 10/08/22 13:39 [facility] [id number]) Posture Evaluation Augusto Postural Classification System Lumbar Protective Mechanism Left AP 0 Lumbar Protective Mechanism Right AP 0 Lumbar Protective Mechanism Left PA 0 Lumbar Protective Mechanism Right PA 0 Comments Posture Comments ant/ant augusto postural classifcation system; flexed at hips and inc kyphosis w/fwd head PT-OP-M Strength Start: 10/07/22 18:09 Freq: Status: Active Protocol: Document 10/08/22 12:45 [facility] (Rec: 10/08/22 13:39 [facility] [id number]) Hip Strength Hip Manual Muscle Testing Right Flexion (L2) 4- Good- Abduction 3+ Fair+ External Rotation 3- Fair- Internal Rotation 4- Good- Left Flexion (L2) 4- Good- Abduction 3+ Fair+ Internal Rotation 4 Good Knee Strength Knee Manual Muscle Testing Right Flexion (S2) 3+ Fair+ Extension (L3) 4- Good- Left Flexion (S2) 4- Good- Extension (L3) 4- Good- Ankle/Foot Strength Ankle and Foot Manual Muscle Testing Right Dorsiflexion (L4) 4 Good Plantarflexion (S1) 3 Fair Left Dorsiflexion (L4) 4 Good Plantarflexion (S1) 3 Fair Comments able to do 2x B PT-OP-Q Treatments Start: 10/07/22 18:09 Freq: Status: Active Protocol: Document 03/29/23 09:58 BS (Rec: 03/29/23 14:19 BS [id number]) Therapeutic Exercises Standing Exercises march Standing Exercise Name resisted march Resistance peach band Reps/Minutes x10 ea Comments cue for slow movement and small hold at top PT-OP-T Assessment and Plan Start: 10/07/22 18:09 Freq: Status: Active Protocol: Document 03/29/23 09:58 BS (Rec: 03/29/23 14:19 BS [id number]) Physical Therapy Assessment Goals sit to stands Impairment 3x in 30 sec Impairment 11 is age related norms Short Term Goal (STG) Pt will be able to do at least 6 sit to stands in 30 sec to show dec risk for falls and inc LE strength. 12/21- still limited 02/25-needs UEs 03/29- still needs UE, performed 5.5 in 30s STG Duration 05/10/23 Alf Goal (LTG) Pt will be able to do at least 9 sit to stands in 30 sec to show dec risk for falls and inc LE strength. LTG Duration 06/21/23 balance Short Term Goal (STG) Pt will improve score on Tinneti to at least to show low risk for falls 12/21- 02/25- 03/29- STG Duration 05/10/23 Sport Psychologist Goal (LTG) Pt will score at least on DGI to show dec risk for falls. 12/21- 02/25- 03/29- LTG Duration 06/21/23 walking Impairment 6 min walk-981ft w/SPC Impairment 1017 back fatigue at 2.5 min starting and starting w/dec R stance time & lat lean Short Term Goal (STG) Pt will improve 6 min walk test to at least 1150ft to show improved basic daily function. 12/21-1011 ft 02/25-834ft w/o SPC but did cont to catch foot 03/29- 955ft w/o SPC but cont foot catch STG Duration 05/10/23 Sport Psychologist Goal (LTG) Pt will improve 6 min walk test to at least 1350ft w/o any catching his foot on the ground to show improved basic daily function. LTG Duration 06/21/23 Assessment Summary Assessment Pt seen today for a PT progress note. Pt showed improvement in his 5x sit> stand, improving from 30s to 25s, although was unable to complete one more full rep before 30s. Pt also improved in his 6MWT, improving from 834ft to 955ft. Pt completed with no AD and did have repeated instances of catching foot on floor d/t dec foot clearance, requiring assist. Pt still is at high risk of falls with DGI and moderate risk according to tinnetti. Pt will benefit from continued skilled PT in order to address strength and balance deficits and dec risk of falls. PT to focus on maintanence care d/t pt no longer making sig progress but d/t pt dementia diagnosis and progression, would benefit from skilled PT to mitigate fall risk. Physical Therapy Plan Frequency and Duration Frequency of Treatment 1x/Week Duration of treatment (weeks) 12 Plan of Care Start Date 03/29/23 Plan of Care End Date 06/21/23 Therapeutic Interventions Therapeutic Interventions Balance Training,Gait Training ,Home Exercise Program,Joint Mobilizations,Manual Therapy, Neuromuscular Re-education, Patient/Caregiver Education, Self-Care/Home Management,Soft Tissue Mobilization,Taping, Therapeutic Activities, Therapeutic Exercises, Vestibular Rehabilitation Modalities Cold Pack/Ice Massage,Electric Stimulation,Hot Packs, Traction- Mechanical, Ultrasound Other Therapeutic Interventions 2x/wk for 5 wks then 1x/wk for 7 wks Next Visit Focus/Plan Next Note Type Treatment Note Next Visit Plan reasses HEP for hips and back: seated hamstring & standing hip flex stretch Hurdles for gait, balance board, sport cord resisted gait; review HEP as needed: sit to stands, standing DF, standing march, bridges, tandem balance at corner/ counter Balance/cog tasks: dyer bag toss on same color dots while on foam, cone taps, p/u objects from ground
--- NOTE | 2023-03-29 18:08 | PT.OPPOC ---
Addendum entered and electronically signed by Reina Rider PT 03/30/23 08:02: PT direct supervision and direction to PT student. Original Note: Physical, Occupational & Speech Therapy At [facility] Current Diagnoses Pain in right hip (03/29/23) Low back pain, unspecified (03/29/23) Difficulty in walking, not elsewhere classified (03/29/23) Other abnormalities of gait and mobility (03/29/23) Unspecified abnormalities of gait and mobility (03/29/23) Abnormal posture (03/29/23) Weakness (03/29/23) Visit Care Team Role Provider Type Mynor Rai DO Family Provider Physician Primary Care Provider Specialty: Family Practice Address: [address] [place] [address], [id number] Email: Kelly Norman DO Attending Provider Physician Referring Provider Specialty: Medical Address: [address] [place] [address], [address], [place], [address] Email: [email or web address] Plan Of Care PT-OP-T Assessment and Plan Start: 10/07/22 18:09 Freq: Status: Active Protocol: Document 03/29/23 09:58 BS (Rec: 03/29/23 14:19 BS [id number]) Physical Therapy Assessment Goals sit to stands Impairment 3x in 30 sec Impairment 11 is age related norms Short Term Goal (STG) Pt will be able to do at least 6 sit to stands in 30 sec to show dec risk for falls and inc LE strength. 12/21- still limited 02/25-needs UEs 03/29- still needs UE, performed 5.5 in 30s STG Duration 05/10/23 Alf Goal (LTG) Pt will be able to do at least 9 sit to stands in 30 sec to show dec risk for falls and inc LE strength. LTG Duration 06/21/23 balance Short Term Goal (STG) Pt will improve score on Tinneti to at least to show low risk for falls 12/21- 02/25- 03/29- STG Duration 05/10/23 Mail Caller Goal (LTG) Pt will score at least 20/24 on DGI to show dec risk for falls. 12/21- 02/25- 03/29- LTG Duration 06/21/23 walking Impairment 6 min walk-981ft w/SPC Impairment 1017 back fatigue at 2.5 min starting and starting w/dec R stance time & lat lean Short Term Goal (STG) Pt will improve 6 min walk test to at least 1150ft to show improved basic daily function. 12/21-1011 ft 02/25-834ft w/o SPC but did cont to catch foot 03/29- 955ft w/o SPC but cont foot catch STG Duration 05/10/23 Alf Goal (LTG) Pt will improve 6 min walk test to at least 1350ft w/o any catching his foot on the ground to show improved basic daily function. LTG Duration 06/21/23 Assessment Summary Assessment Pt seen today for a PT progress note. Pt showed improvement in his 5x sit> stand, improving from 30s to 25s, although was unable to complete one more full rep before 30s. Pt also improved in his 6MWT, improving from 834ft to 955ft. Pt completed with no AD and did have repeated instances of catching foot on floor d/t dec foot clearance, requiring assist. Pt still is at high risk of falls with DGI and moderate risk according to tinnetti. Pt will benefit from continued skilled PT in order to address strength and balance deficits and dec risk of falls. PT to focus on maintanence care d/t pt no longer making sig progress but d/t pt dementia diagnosis and progression, would benefit from skilled PT to mitigate fall risk. Physical Therapy Plan Frequency and Duration Frequency of Treatment 1x/Week Duration of treatment (weeks) 12 Plan of Care Start Date 03/29/23 Plan of Care End Date 06/21/23 Therapeutic Interventions Therapeutic Interventions Balance Training,Gait Training ,Home Exercise Program,Joint Mobilizations,Manual Therapy, Neuromuscular Re-education, Patient/Caregiver Education, Self-Care/Home Management,Soft Tissue Mobilization,Taping, Therapeutic Activities, Therapeutic Exercises, Vestibular Rehabilitation Modalities Cold Pack/Ice Massage,Electric Stimulation,Hot Packs, Traction- Mechanical, Ultrasound Other Therapeutic Interventions 2x/wk for 5 wks then 1x/wk for 7 wks Next Visit Focus/Plan Next Note Type Treatment Note Next Visit Plan reasses HEP for hips and back: seated hamstring & standing hip flex stretch Hurdles for gait, balance board, sport cord resisted gait; review HEP as needed: sit to stands, standing DF, standing march, bridges, tandem balance at corner/ counter Balance/cog tasks: dyer bag toss on same color dots while on foam, cone taps, p/u objects from ground Plan of Care Dates Plan of Care Start Date 03/29/23 Plan of Care End Date 06/21/23 Electronically Signed by: Dalila Callahan 03/29/23 5502 If you are in agreement with this Plan of Care, please return a signed and dated copy. I have reviewed this Plan of Care and certify that the skilled therapy services above are required to meet the patient?s needs. Physician Signature Date Printed Name and Credentials Clinical Instructor Signature Printed Name and Credentials
--- NOTE | 2023-04-13 17:29 | PT.OTN ---
Addendum entered and electronically signed by Reina Rider, PT 04/13/23 17:47: PT direct supervision and direction to PT student. Original Note: Current Diagnoses Pain in right hip (04/13/23) Low back pain, unspecified (04/13/23) Difficulty in walking, not elsewhere classified (04/13/23) Other abnormalities of gait and mobility (04/13/23) Unspecified abnormalities of gait and mobility (04/13/23) Abnormal posture (04/13/23) Weakness (04/13/23) Physical Therapy Treatment Note PT-OP-A Visit Information Start: 10/07/22 18:09 Freq: Status: Active Protocol: Document 04/13/23 15:15 BS (Rec: 04/13/23 16:22 BS [id number]) Out-Patient Physical Therapy Visit Information Visit Information Visit Type Treatment Note Visit Note 06/19 Visit Start Time 15:16 Visit Stop Time 16:01 Total Visit Minutes 45 Visit Number 17 Number of MAINTENANCE GROUNDSKEEPER Visits 0 PT-OP-B Current Condition Start: 10/07/22 18:09 Freq: Status: Active Protocol: Document 10/08/22 12:45 [facility] (Rec: 10/08/22 13:39 [facility] [id number]) Current Condition History of Current Condition Current Complaints back pain, R hip pain, gait abnormalities, balance dec History of Current Condition Pt reports he has had a couple instances of falling where he is in enclosed spaces and falling backwards. He does note he has been catching his feet. His notes he has not been falling too much recently, but the other night admits that after watching a bit of TV, he stood and ended up falling back nto the couch. He is still seeing a DO for Dr. Norman and Dr. Rai [facility] has been helpful. This helps his back pain be less and R hip pain dec. He notes that sometimes doing ADLs and moves the wrong way, he has spasms to lat hip. he was floating a lot on recent cruises and that seems to help. He did try going to pool to swim and was in more pain. he is getting a walk in tub at home. notes his gait has slowed down now. History: R achilles tendon surgery, R post hip replacement, A fib, memory loss, neck pain, neuropathy, back pain, dizziness and falls Treatment Goals Patient/Caregiver Goals improve stride length, improve balance, dec back/hip pain. Prior Functional Status Baseline Function- Other In the past few years, pt has overall declined. About 2 years ago, pt was able to go on long walks w/his wifeand had a dec instance of falls. Pt has also had a decline in memory and cognitive function, which has affected his mobility and safety. PT-OP-C Subjective Start: 10/07/22 18:09 Freq: Status: Active Protocol: Document 04/13/23 15:15 BS (Rec: 04/13/23 16:22 BS [id number]) OP-PT Subjective Patient Comments Patient Comments feels like continues to mentally decline and is looking at a memory care facility for him to move to. Unsure when it will happen . PT-OP-E Functional Tests Start: 10/07/22 18:09 Freq: Status: Active Protocol: Document 03/29/23 09:58 BS (Rec: 03/29/23 14:19 BS [id number]) Functional Tests 6 Minute Walk Test Distance 955ft-pt caught foot on floor mult times, lurching fwd requiring assist Device Used none 30 Second Sit to Stand Test Score 5.5 Comments w/hands on silver chair Five Times Sit to Stand Test Score 25s Comments w/hands on silver chair PT-OP-G Mobility & Gait Start: 10/07/22 18:09 Freq: Status: Active Protocol: Document 10/08/22 12:45 LR (Rec: 10/08/22 13:39 [facility] [id number]) OP Gait Assessment Comments Gait Comments Pt uses cane out side of house . Dec steplength and clearance B overall dec push off. PT-OP-J Posture/Palpation/Skin Start: 10/07/22 18:09 Freq: Status: Active Protocol: Document 10/08/22 12:45 [facility] (Rec: 10/08/22 13:39 [facility] [id number]) Posture Evaluation Augusto Postural Classification System Lumbar Protective Mechanism Left AP 0 Lumbar Protective Mechanism Right AP 0 Lumbar Protective Mechanism Left PA 0 Lumbar Protective Mechanism Right PA 0 Comments Posture Comments ant/ant augusto postural classifcation system; flexed at hips and inc kyphosis w/fwd head PT-OP-M Strength Start: 10/07/22 18:09 Freq: Status: Active Protocol: Document 10/08/22 12:45 [facility] (Rec: 10/08/22 13:39 [facility] [id number]) Hip Strength Hip Manual Muscle Testing Right Flexion (L2) 4- Good- Abduction 3+ Fair+ External Rotation 3- Fair- Internal Rotation 4- Good- Left Flexion (L2) 4- Good- Abduction 3+ Fair+ Internal Rotation 4 Good Knee Strength Knee Manual Muscle Testing Right Flexion (S2) 3+ Fair+ Extension (L3) 4- Good- Left Flexion (S2) 4- Good- Extension (L3) 4- Good- Ankle/Foot Strength Ankle and Foot Manual Muscle Testing Right Dorsiflexion (L4) 4 Good Plantarflexion (S1) 3 Fair Left Dorsiflexion (L4) 4 Good Plantarflexion (S1) 3 Fair Comments able to do 2x B PT-OP-Q Treatments Start: 10/07/22 18:09 Freq: Status: Active Protocol: Document 04/13/23 15:15 BS (Rec: 04/13/23 16:22 BS [id number]) Cardio Equipment Recumbent Bicycle Duration (Minutes) 6 Resistance 6 Seat Position 10 Therapeutic Exercises Standing Exercises sit to stands Standing Exercise Name sit<>stands Side bilateral Equipment Used adjustable mat table Reps/Minutes x12 Comments prog lower heights, no hands - lowest 20in Neuro Re-Education Treatment Balance Activities foam Reps/Duration 12 min Comments 1. WBOS & NBOS on foam w/ dyer bag tosses to colored targets hurdles Comments 1. fwd over hurdles recip w/ rail prn x5 2. side step over hurdles, HR prn x2ea w/ visual foot targets PT-OP-T Assessment and Plan Start: 10/07/22 18:09 Freq: Status: Active Protocol: Document 04/13/23 15:15 BS (Rec: 04/13/23 16:22 BS [id number]) Physical Therapy Assessment Goals sit to stands Impairment 3x in 30 sec Impairment 11 is age related norms Short Term Goal (STG) Pt will be able to do at least 6 sit to stands in 30 sec to show dec risk for falls and inc LE strength. 12/21- still limited 02/25-needs UEs 03/29- still needs UE, performed 5.5 in 30s STG Duration 05/10/23 Senior Web Developer Goal (LTG) Pt will be able to do at least 9 sit to stands in 30 sec to show dec risk for falls and inc LE strength. LTG Duration 06/21/23 balance Short Term Goal (STG) Pt will improve score on Tinneti to at least to show low risk for falls 12/21- STG Duration 05/10/23 [facility] Goal (LTG) Pt will score at least on DGI to show dec risk for falls. 12/21- LTG Duration 06/21/23 walking Impairment 6 min walk-981ft w/SPC Impairment 1017 back fatigue at 2.5 min starting and starting w/dec R stance time & lat lean Short Term Goal (STG) Pt will improve 6 min walk test to at least 1150ft to show improved basic daily function. 12/21-1011 ft 02/25-834ft w/o SPC but did cont to catch foot 03/29- 955ft w/o SPC but cont foot catch STG Duration 05/10/23 Senior Web Developer Goal (LTG) Pt will improve 6 min walk test to at least 1350ft w/o any catching his foot on the ground to show improved basic daily function. LTG Duration 06/21/23 Assessment Summary Assessment Pt had significantly harder time with cueing today. Pt was unable to follow one step commands 50% of the time, spec w/ foot positioning and turning cues. Pt was able to complete sit to stands with good mechanics and progressively lower heights, getting down to 20 mat height w/o UE use. Physical Therapy Plan Frequency and Duration Frequency of Treatment 1x/Week Duration of treatment (weeks) 12 Plan of Care Start Date 03/29/23 Plan of Care End Date 06/21/23 Next Visit Focus/Plan Next Note Type Treatment Note Next Visit Plan Continue to progress BLE strength. Hurdles for gait, balance board, sport cord resisted gait; review HEP as needed: sit to stands, standing DF, standing march, bridges, tandem balance at corner/counter Balance/cog tasks: dyer bag toss on same color dots while on foam, cone taps, p/u objects from ground, balance w /ABC animals
--- NOTE | 2023-05-05 17:52 | PT.OTN ---
Current Diagnoses Pain in right hip (05/05/23) Low back pain, unspecified (05/05/23) Difficulty in walking, not elsewhere classified (05/05/23) Other abnormalities of gait and mobility (05/05/23) Unspecified abnormalities of gait and mobility (05/05/23) Abnormal posture (05/05/23) Weakness (05/05/23) Physical Therapy Treatment Note PT-OP-A Visit Information Start: 10/07/22 18:09 Freq: Status: Active Protocol: Document 05/05/23 17:41 [facility] (Rec: 05/05/23 17:52 [facility] [id number]) Out-Patient Physical Therapy Visit Information Visit Information Visit Type Discharge Summary Visit Start Time 16:04 Visit Stop Time 16:47 Total Visit Minutes 43 Visit Number 18 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 He does note he has been catching his feet. His notes he has not been falling too much recently, but the other night admits that after watching a bit of TV, he stood and ended up falling back nto the couch. He is still seeing a DO for Dr. Norman and Dr. Fredi lund has been helpful. This helps his back pain be less and R hip pain dec. He notes that sometimes doing ADLs and moves the wrong way, he has spasms to lat hip. he was floating a lot on recent cruises and that seems to help. He did try going to pool to swim and was in more pain. he is getting a walk in tub at home. notes his gait has slowed down now. History: R achilles tendon surgery, R post hip replacement, A fib, memory loss, neck pain, neuropathy, back pain, dizziness and falls Treatment Goals Patient/Caregiver Goals improve stride length, improve balance, dec back/hip pain. Prior Functional Status Baseline Function- Other In the past few years, pt has overall declined. About 2 years ago, pt was able to go on long walks w/his wifeand had a dec instance of falls. Pt has also had a decline in memory and cognitive function, which has affected his mobility and safety. PT-OP-C Subjective Start: 10/07/22 18:09 Freq: Status: Active Protocol: Document 05/05/23 17:41 [facility] (Rec: 05/05/23 17:52 [facility] [id number]) OP-PT Subjective Patient Comments Patient Comments notes pt went to sit down and missed a chair. She plans to have him move into [facility] at the end of May. PT-OP-E Functional Tests Start: 10/07/22 18:09 Freq: Status: Active Protocol: Document 05/05/23 17:41 [facility] (Rec: [facility]/05/23 [id number] Functional Tests 6 Minute Walk Test Distance 602ft Device Used SPC Comments pt caught L>R foot on floor frequently requiring min A for balance Dynamic Gait Index (DGI) Score 10 Tinetti Balance and Gait Assessment Composite Score 17 PT-OP-G Mobility & Gait Start: 10/07/22 18:09 Freq: Status: Active Protocol: Document 10/08/22 12:45 [facility] (Rec: 10/08/22 13:[id number] OP Gait Assessment Comments Gait Comments Pt uses cane out side of house . Dec steplength and clearance B overall dec push off. PT-OP-J Posture/Palpation/Skin Start: 10/07/22 18:09 Freq: Status: Active Protocol: Document 10/08/22 12:45 [facility] (Rec: 10/08/22 13:[id number] Posture Evaluation Augusto Postural Classification System Lumbar Protective Mechanism Left AP 0 Lumbar Protective Mechanism Right AP 0 Lumbar Protective Mechanism Left PA 0 Lumbar Protective Mechanism Right PA 0 Comments Posture Comments ant/ant augusto postural classifcation system; flexed at hips and inc kyphosis w/fwd head PT-OP-M Strength Start: 10/07/22 18:09 Freq: Status: Active Protocol: Document 10/08/22 12:45 [facility] (Rec: 10/08/22 13:39 [facility] [id number]) Hip Strength Hip Manual Muscle Testing Right Flexion (L2) 4- Good- Abduction 3+ Fair+ External Rotation 3- Fair- Internal Rotation 4- Good- Left Flexion (L2) 4- Good- Abduction 3+ Fair+ Internal Rotation 4 Good Knee Strength Knee Manual Muscle Testing Right Flexion (S2) 3+ Fair+ Extension (L3) 4- Good- Left Flexion (S2) 4- Good- Extension (L3) 4- Good- Ankle/Foot Strength Ankle and Foot Manual Muscle Testing Right Dorsiflexion (L4) 4 Good Plantarflexion (S1) 3 Fair Left Dorsiflexion (L4) 4 Good Plantarflexion (S1) 3 Fair Comments able to do 2x B PT-OP-Q Treatments Start: 10/07/22 18:09 Freq: Status: Active Protocol: Document 05/05/23 17:41 [facility] (Rec: 05/05/23 17:52 [facility] [id number]) Therapeutic Exercises Standing Exercises sit to stands Standing Exercise Name sit<>stands Side bilateral Equipment Used w/ues from chair Reps/Minutes 30 sec then mult attemps w/o hands Comments cues throughout for 5x during ssion for hand use Neuro Re-Education Treatment Balance Activities tandem Comments heel to toe w/hand on rail and max cues x20ft fwd/back Comments marching fwd x100ft then backwards walk 20ft hurdles Comments 1. fwd over hurdles recip w/ rail x6 Coordination Activities big steps Comments cues for long steps x100ft w/ SPC PT-OP-T Assessment and Plan Start: 10/07/22 18:09 Freq: Status: Active Protocol: Document 05/05/23 17:41 [facility] (Rec: 05/05/23 17:52 [facility] [id number]) Physical Therapy Assessment Goals sit to stands Impairment 3x in 30 sec Impairment 11 is age related norms Short Term Goal (STG) Pt will be able to do at least 6 sit to stands in 30 sec to show dec risk for falls and inc LE strength. 12/21- still limited 02/25-needs UEs 03/29- still needs UE, performed 5.5 in 30s STG Duration able to do 3 w/hands Wheel Aligner Goal (LTG) Pt will be able to do at least 9 sit to stands in 30 sec to show dec risk for falls and inc LE strength. LTG Duration 3 in 30 sec w/hands balance Short Term Goal (STG) Pt will improve score on Tinneti to at least 24/28 to show low risk for falls 12/21-03/29- STG Duration dec to Wheel Aligner Goal (LTG) Pt will score at least on DGI to show dec risk for falls. 12/21- 02/25- 03/29- LTG Duration dec to 03/02 walking Impairment 6 min walk-981ft w/SPC Impairment 1017 back fatigue at 2.5 min starting and starting w/dec R stance time & lat lean Short Term Goal (STG) Pt will improve 6 min walk test to at least 1150ft to show improved basic daily function. 12/21-1011 ft 02/25-834ft w/o SPC but did cont to catch foot 03/29- 955ft w/o SPC but cont foot catch STG Duration dec to 602ft Wheel Aligner Goal (LTG) Pt will improve 6 min walk test to at least 1350ft w/o any catching his foot on the ground to show improved basic daily function. LTG Duration dec to 602ft Assessment Summary Assessment At this time, pt has declined in all areas w/balance and strength w/tests. This is likely d/t dec in motor planning w/signfiicant cognitive decline. he is having much more difficulty following one step commands at this time. is planning to have pt move into memory care facility. Physical Therapy Plan Discharge Physical Therapy Discharge Comments pt declining
== END 2023-05-14 07:35 | disposition home or self-care (01) ==
LOC: PHYS 16:00
PROVIDERS: Family Provider Family Medicine; PCP Family Medicine; Referring Provider Family Medicine; Visit Provider Family Medicine
DX: R26.9 Unspecified abnormalities of gait and mobility (principal); R26.89 Other abnormalities of gait and mobility; R53.1 Weakness; R29.3 Abnormal posture; R26.2 Difficulty in walking, not elsewhere classified; M54.50 Low back pain, unspecified; M25.551 Pain in right hip
CPT/HCPCS: 97110; 97112; 97140; 97162; 97535

== ENCOUNTER 2023-07-02 18:01 | Inpatient (IN) | payer MEDICARE, SELFPAY ==
[2023-07-02] VITALS (12 sets, daily range): BP systolic 124–158; BP diastolic 61–111; PULSE 66–105; RESP 13–24; TEMP 37.4–38.3; O2SAT 94–98; BMI 25.9
--- NOTE | 2023-07-02 18:05 | ED_ITS ---
HPI - Neuro Symptoms/Deficit General Chief Complaint: Neuro Symptoms/Deficit Stated Complaint: Code Stroke Time Seen by Provider: 07/02/23 18:04 Source: EMS, RN notes reviewed and old records reviewed Mode of arrival: EMS History of Present Illness HPI Narrative: 77-year-old male with history of atrial fibrillation, cognitive decline, hyperlipidemia, hypertension, low back pain, central foraminal stenosis lumbar spine, right hip replacement and obstructive sleep apnea on CPAP who presents with concern for stroke. Reported last known normal was 5:15pm, patient is on Xarelto daily. Patient is alert but does not follow commands, does not give his name. He does say yup occasionally. Patient was reportedly in the group area when a facial droop was appreciated as well as weakness. Patient reportedly knows his name at baseline and ambulates fairly independently. Does have known dementia with memory issues. Unable to perform NIH. Patient is unable to give any additional history. History obtained from records. Related Data Home Medications Medication Instructions Recorded Confirmed B-complex with vitamin C 1 tab PO DAILY 11/28/21 07/02/23 Theracurmin 1 cap PO BID 11/28/21 04/19/23 ascorbic acid-elderberry fruit 1 gummy PO 2XD supplement 11/28/21 07/02/23 [Airborne (elderberry)] cholecalciferol (vitamin D3) 25 50 mcg PO DAILY 11/28/21 07/02/23 mcg (1,000 unit) capsule diphenhydramine HCl 25 mg tablet 12.5 mg PO DAILY PRN leg cramps 11/28/21 07/02/23 (Benadryl Allergy) elderberry fruit [Sambucus 1 cap PO BID 11/28/21 04/19/23 Elderberry Original] glucosamine-chondroitin 1 cap PO TID 11/28/21 07/02/23 magnesium oxide 400 mg PO DAILY 11/28/21 04/19/23 prednisone 20 mg tablet 20 mg PO DAILY PRN 11/28/21 04/19/23 salmon oil-omega-3 fatty acids 1 cap PO BID 11/28/21 04/19/23 vitamin E 268 mg (400 unit) capsule 400 unit PO DAILY 11/28/21 04/19/23 Resmed Airsense 10 CPAP #1 ea 01/21/22 04/19/23 trazodone 50 mg tablet 50 mg PO BEDTIME PRN 04/19/23 04/19/23 Previous Rx's Medication Instructions Recorded Disabled Parking permit #1 ea 06/19/21 metoprolol succinate 25 mg 25 mg PO QPM #90 tabs 07/20/22 tablet,extended release 24 hr donepezil 10 mg tablet 10 mg PO .in the evening #90 tabs 10/16/22 rivaroxaban 20 mg tablet (Xarelto) 20 mg PO DAILY #90 tabs 10/16/22 Allergies Allergy/AdvReac Type Severity Reaction Status Date / Time No Known Drug Allergies Allergy Verified 07/02/23 19:32 Review of Systems Review of Systems ROS Unobtainable: Unobtainable due to mental status/LOC Patient History Medical History Chronic 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 Benign prostatic hyperplasia Lower urinary tract symptoms Asymptomatic microscopic hematuria Greater trochanteric bursitis of right hip Folate deficiency Sleep walking Hypotension Easy bruisability Chronic anticoagulation Bilateral finger numbness Cervical radiculopathy Segmental and somatic dysfunction of rib cage Somatic dysfunction of lower extremity Cervical somatic dysfunction Cranial somatic dysfunction Stiff neck Squamous cell carcinoma, leg Screening for prostate cancer 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 Foot joint stiffness, bilateral Thoracic region somatic dysfunction Central stenosis of spinal canal Lumbar foraminal stenosis Segmental and somatic dysfunction of abdomen and other regions Sacral region somatic dysfunction Pelvic somatic dysfunction Lumbar region somatic dysfunction Atrial fibrillation Fatigue (~11/23/19) Cognitive decline Obstructive sleep apnea of adult Low back pain Concussion Fall (on) (from) other stairs and steps, sequela Dizziness Heart disease Surgical History History of right hip replacement Hx of Achilles tendon repair Hx of umbilical hernia repair Family History Father Blood disease Diabetes mellitus Eczema Hearing impairment Mother Melanoma Social History marital status: details: cintia Christiansen household members: spouse lives independently: Yes caregiver/support person: No education level: college occupational status: previously employed (now retired) 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 HEENT: Atraumatic, pupils are equal round reactive to light, extraocular movements are intact, nares are clear, TMs are clear with no fluid, there is no conjunctival pallor. Throat is clear without any exudates, erythema, tonsillar enlargement or uvular deviation, no appreciable facial droop but patient does not smile on command. HEART: Regular rate and rhythm without murmur, clicks, rubs. Pulses are equal in upper and lower extremities LUNGS:Lungs clear to auscultation, no wheezes, rales, crackles, chest moves symmetrically ABD:bowel sounds normal, soft, non-tender, no guarding, rebound, rigidity, no masses noted, no hepatosplenomegaly :No CVA tenderness MSCL: Non-tender, no muscle atrophy, patient does not appear to have any drift but will not hold his arms up, he does seem to have some decreased inventory control manager on the left but does not follow commands. NEURO:CN 2-12 intact, sensation normal, reflexes 2/4 upper and lower extremities. Unable to perform heel bartlett or finger-nose. Patient has mild generalized tremor. Initial Vital Signs Initial Vital Signs: Vital Signs Temperature 99.8 F H 07/02/23 18:14 Pulse Rate 105 H 07/02/23 18:14 Respiratory Rate 22 07/02/23 18:14 Blood Pressure 141/88 H 07/02/23 18:14 Pulse Oximetry 97 07/02/23 18:14 Oxygen Delivery Method Room Air 07/02/23 18:14 Scores NIH Stroke Scale Level of Conciousness: Alert, keenly responsive Ask month/age: Answers neither question correctly, aphasic, stuporous, coma Open/close eyes, close hand: Performs both tasks correctly Best gaze horizontal: Normal Facial palsy: Normal symetrical movement Best language: Severe aphasia, not much is understood, fragmented Dysarthria: Mild to mod,some slurring Course Orders Ordered: ED Orders 07/02/23 18:[address] angio head and neck Stat EKG-12 Lead Stat 07/02/23 18:36 Complete Blood Count AUTO DIFF Stat 07/02/23 18:45 Covid-19 + FLU A/B + RSV - PCR Stat Urinalysis and Microscopic Stat Urine Culture Stat Urine Drug Screen, Rapid Stat 07/02/23 19:12 Comprehensive Metabolic Panel Stat Ethanol (ETOH) Stat PTT Partial Thromboplastin [place] Stat Prothrombin Time INR Stat Troponin & CK Cardiac Panel Stat Discontinued Medications Ceftriaxone Sodium 1,000 mg/ (Sodium Chloride) 100 mls @ 200 mls/hr IV NOW ONE Stop: 07/02/23 20:10 Last Admin: 07/02/23 21:22 Dose: 200 mls/hr Documented By: [place] Vital Signs Vital signs: Vital Signs - 8 hr 07/02/23 18:14 07/02/23 18:16 07/02/23 18:19 Temperature 99.8 F H Pulse Rate 105 H 66 Respiratory Rate 22 Blood Pressure 141/88 H 141/88 H Pulse Oximetry 97 96 Oxygen Delivery Method Room Air 07/02/23 18:19 07/02/23 18:30 07/02/23 18:30 Temperature Pulse Rate 102 H 96 H Respiratory Rate 13 19 Blood Pressure 144/90 H Pulse Oximetry 95 98 Oxygen Delivery Method 07/02/23 19:00 07/02/23 19:00 07/02/23 19:16 Temperature Pulse Rate 92 H Respiratory Rate 20 Blood Pressure 158/111 H 154/100 H Pulse Oximetry 96 Oxygen Delivery Method Nasal Cannula 07/02/23 19:16 07/02/23 19:30 07/02/23 19:30 Temperature Pulse Rate 101 H 94 H Respiratory Rate 24 22 Blood Pressure 143/78 H Pulse Oximetry 95 96 Oxygen Delivery Method Room Air 07/02/23 20:00 07/02/23 20:00 07/02/23 20:30 Temperature Pulse Rate 91 H 100 H Respiratory Rate 18 20 Blood Pressure 134/61 Pulse Oximetry 96 94 Oxygen Delivery Method Room Air 07/02/23 20:30 07/02/23 21:00 07/02/23 21:00 Temperature Pulse Rate 100 H Respiratory Rate 18 Blood Pressure 154/80 H 150/73 H Pulse Oximetry 94 Oxygen Delivery Method MDM - Neuro Symptoms/Deficit Lab Data 07/02/23 18:36 07/02/23 19:12 Labs: Lab Results 02/23/24 02/23/24 02/23/24 Range/Units 18:36 18:45 18:45 WBC 9.2 (4.5-11.0) X10^3/uL RBC 4.35 L (4.5-5.9) X10^6/uL Hgb 14.4 (13.5-17.5) g/dL Hct 42.1 (41-53) % MCV 96.7 (80-100) fL MCH 33.1 (26-34) PG MCHC 34.3 (30-36) % RDW 13.3 (11.6-14.8) % Plt Count 204 (150-400) X10^3/uL Neut % (Auto) 84.9 H (50-75) % Lymph % (Auto) 5.2 L (25-40) % [place] % (Auto) 9.1 (3-14) % Eos % (Auto) 0.6 L (2-4) % Baso % (Auto) 0.2 (0-2) % Neut # (Auto) 7800 H (8624-7633) /uL Lymph # (Auto) 500 L (9002-8299) /uL [place] # (Auto) 800 (0-900) /uL Eos # (Auto) 100 (0-450) /uL Baso # (Auto) 0 (0-100) /uL PT (9.4-12.5) SECONDS INR (0.9-1.3) APTT (25.1-36.5) SECONDS Sodium (137-145) mmol/L Potassium (3.4-5.1) mmol/L Chloride (98-107) mmol/L Carbon Dioxide (22-32) mmol/L BUN (9-20) mg/dL Creatinine (0.66-1.25) mg/dL Estimated GFR (>60) mL/min BUN/Creatinine Ratio (6-22) Glucose (80-110) mg/dL Calcium (8.4-10.2) mg/dL Total Bilirubin (0.2-1.3) mg/dL AST (17-59) IU/L ALT (<50) IU/L Alkaline Phosphatase (38-126) U/L Total Creatine Kinase (55-170) U/L Troponin I (0.01-0.034) ng/mL Total Protein (6.3-8.2) g/dL Albumin (3.5-5.0) g/dL Globulin (1.7-4.1) g/dL Albumin/Globulin Ratio (1.0-2.8) Urine Color Yellow Urine Appearance Clear Urine pH 6.5 Normal (4.5-8.0) Ur Specific [place] 1.010 (1.000-1.035) Urine Protein Negative (Negative) Urine Glucose (UA) Negative (Negative) g/dL Urine Ketones Negative (NEGATIVE) Urine Occult Blood Negative (Negative) Urine Nitrate Negative (Negative) Urine Bilirubin Negative (NEGATIVE) Urine Urobilinogen 1.0 (0.2) E.U./dL Ur Leukocyte Esterase 1+ H (NEGATIVE) Urine RBC 0-1/hpf (0-5/HPF) Urine WBC 5-10/hpf H (0-5/HPF) Ur Squamous Epith Cells 0-1 /hpf (0-5/HPF) Amorphous Sediment 1+ Urine Bacteria Few (2-10) H (None) Urine Yeast 0-1/hpf (None) Ur Culture Indicated? Specimen cultured Vol Urine Centrifuged 10ml (spun) U Opiates 300ng/mL cut Negative (Negative) Ur Oxycodone Screen Negative (Negative) Urine Methadone Screen Negative (Negative) Ur Barbiturates Screen Negative (Negative) U Tricyclic Antidepress Negative (Negative) Ur Phencyclidine Scrn Negative (Negative) Ur Amphetamines Screen Negative (Negative) U Methamphetamines Scrn Negative (Negative) Ur MDMA Scrn (Ecstasy) Negative (Negative) U Benzodiazepines Scrn Negative (Negative) Urine Cocaine Screen Negative (Negative) U Marijuana (THC) Screen Negative (Negative) Urine Specific [place] Normal (Normal) Ethyl Alcohol ( - 10) mg/dL Ur Creatinine Normal (Normal) SARS-CoV-2 (PCR) Positive H (Negative) Influenza A (RT-PCR) Flu a negative (NEGATIVE) Influenza B (RT-PCR) Flu b negative (NEGATIVE) RSV (PCR) Negative (Negative) 07/02/23 Range/Units 19:12 WBC (4.5-11.0) X10^3/uL RBC (4.5-5.9) X10^6/uL Hgb (13.5-17.5) g/dL Hct (41-53) % MCV (80-100) fL MCH (26-34) PG MCHC (30-36) % RDW (11.6-14.8) % Plt Count (150-400) X10^3/uL Neut % (Auto) (50-75) % Lymph % (Auto) (25-40) % [place] % (Auto) (3-14) % Eos % (Auto) (2-4) % Baso % (Auto) (0-2) % Neut # (Auto) (0852-8878) /uL Lymph # (Auto) (4995-1584) /uL [place] # (Auto) (0-900) /uL Eos # (Auto) (0-450) /uL Baso # (Auto) (0-100) /uL PT 14.6 H (9.4-12.5) SECONDS INR 1.3 (0.9-1.3) APTT 39 H (25.1-36.5) SECONDS Sodium 135 L (137-145) mmol/L Potassium 3.8 (3.4-5.1) mmol/L Chloride 98 (98-107) mmol/L Carbon Dioxide 27 (22-32) mmol/L BUN 15 (9-20) mg/dL Creatinine 0.72 (0.66-1.25) mg/dL Estimated GFR > 60 (>60) mL/min BUN/Creatinine Ratio 20.8 (6-22) Glucose 97 (80-110) mg/dL Calcium 9.1 (8.4-10.2) mg/dL Total Bilirubin 0.9 (0.2-1.3) mg/dL AST 28 (17-59) IU/L ALT 24 (<50) IU/L Alkaline Phosphatase 98 (38-126) U/L Total Creatine Kinase 24 L (55-170) U/L Troponin I < 0.012 (0.01-0.034) ng/mL Total Protein 8.0 (6.3-8.2) g/dL Albumin 4.3 (3.5-5.0) g/dL Globulin 3.7 (1.7-4.1) g/dL Albumin/Globulin Ratio 1.2 (1.0-2.8) Urine Color Urine Appearance Urine pH (4.5-8.0) Ur Specific [place] (1.000-1.035) Urine Protein (Negative) Urine Glucose (UA) (Negative) g/dL Urine Ketones (NEGATIVE) Urine Occult Blood (Negative) Urine Nitrate (Negative) Urine Bilirubin (NEGATIVE) Urine Urobilinogen (0.2) E.U./dL Ur Leukocyte Esterase (NEGATIVE) Urine RBC (0-5/HPF) Urine WBC (0-5/HPF) Ur Squamous Epith Cells (0-5/HPF) Amorphous Sediment Urine Bacteria (None) Urine Yeast (None) Ur Culture Indicated? Vol Urine Centrifuged U Opiates 300ng/mL cut (Negative) Ur Oxycodone Screen (Negative) Urine Methadone Screen (Negative) Ur Barbiturates Screen (Negative) U Tricyclic Antidepress (Negative) Ur Phencyclidine Scrn (Negative) Ur Amphetamines Screen (Negative) U Methamphetamines Scrn (Negative) Ur MDMA Scrn (Ecstasy) (Negative) U Benzodiazepines Scrn (Negative) Urine Cocaine Screen (Negative) U Marijuana (THC) Screen (Negative) Urine Specific [place] (Normal) Ethyl Alcohol < 10 ( - 10) mg/dL Ur Creatinine (Normal) SARS-CoV-2 (PCR) (Negative) Influenza A (RT-PCR) (NEGATIVE) Influenza B (RT-PCR) (NEGATIVE) RSV (PCR) (Negative) Point of Care Testing Glucose POC 106 Urine Dip Bedside Urine Glucose Negative Bedside Urine Bilirubin - Negative Bedside Urine Ketone - Negative Urine Specific [place] 1.010 Bedside Urine Occult Blood +/- Bedside Urine pH 7.0 Bedside Urine Protein - Negative Bedside Urine Urobilinogen - Negative Bedside Urine Nitrite - Negative Bedside Urine Leukocytes ++ [address] scan - head: Radiologist's Impression: [place] [address] CT Scan Report Signed Patient: Burt Hatch MR#: [id number] : 1945 Acct:[id number] Age/Sex: 77 / M Date of Service: 07/02/23 Loc: ED Accession Number: [id number] Procedure: CT Stroke Ordering Provider: Lizette Bobby D.O. PROCEDURE: CT STROKE INDICATIONS: aphasia, ms changes, weakness TECHNIQUE: Noncontrast 4.5 mm thick angled axial sections acquired from the foramen magnum to the vertex, with coronal reformats. For radiation dose reduction, the following was used: automated exposure control, adjustment of mA and/or kV according to patient size. COMPARISON: [facility], CT, CT ANGIO HEAD AND NECK, 07/02/2023, 18:10. FINDINGS: Image quality: Diagnostic. CSF spaces: Basal cisterns are patent. No extra-axial fluid collections. The ventricles are symmetric in size and shape. Brain: No intracranial bleeds or masses. There is cerebral volume loss for age, with resultant ventricular and sulcal prominence. There are periventricular and deep white matter chronic small vessel ischemic changes. There is intracranial internal carotid artery atherosclerosis. Skull and face: Calvarium and visualized facial bones appear intact, without suspicious lesions. Sinuses: Visualized sinuses and mastoids are clear. IMPRESSION: No acute intracranial pathology. Findings discussed with Dr. Bobby at 6:30 p.m. On 07/02/2023. This study fulfills neurological imaging criteria for inclusion or exclusion of acute stroke therapies based on available published neurological guidelines. Dictated by: Saulo William M.D. on 07/02/2023 at 18:29 Approved by: Saulo William M.D. on 07/02/2023 at 18:31 CTA - brain/neck: Radiologist's Impression: Close Head/Neck CTA (Signed) Saulo William - 07/02/[address] (Signed) Saulo William - 07/02/23 Abdomen/Pelvis CT (Signed) Elsy Prince - 03/31/23 Lumbar Spine MRI (Signed) Brad Maldonado - 01/16/21 Vascular Ultrasound (Signed) Diogo Noland - 03/21/19 [place] [address] CT Scan Report Signed Patient: Burt Hatch MR#: [id number] : 1945 Acct:[id number] Age/Sex: 77 / M Date of Service: 07/02/23 Loc: ED Accession Number: [id number] Procedure: CT angio head and neck Ordering Provider: Lizette Bobby D.O. PROCEDURE: CT ANGIO HEAD AND NECK INDICATIONS: aphasia, ms changes, weakness TECHNIQUE: After the administration of intravenous contrast, 1 mm thick sections acquired from the aortic arch through the [place] of [place]. 3-dimensional xhmmtsy-nlesgdzqq-jssikvqaws (MIP) and/or volume rendering reformats were acquired of the central intracranial vasculature and neck separately. For radiation dose reduction, the following was used: automated exposure control, adjustment of mA and/or kV according to patient size. COMPARISON: None. FINDINGS: Image quality: Diagnostic. BRAIN: CSF spaces: Ventricles are normal in size and shape. Basal cisterns are patent. No extra-axial fluid collections. Brain: No significant abnormality of the brain can be seen. Skull and face: Calvarium and facial bones appear intact, without suspicious lesions. Orbits appear normal. Sinuses: Sinuses and mastoids are clear. HEAD CT ANGIOGRAPHY: Anterior circulation: Intracranial internal carotid arteries are normal in size and flow. The flow within the paired anterior cerebral arteries is normal and symmetric. The flow within the middle cerebral arteries is normal and symmetric. The anterior communicating artery is seen. No aneurysms are seen. Posterior circulation: Visualized portions of the vertebral arteries demonstrate normal caliber, and join to form a normal appearing basilar artery. Flow within the posterior cerebral arteries is normal and symmetric. No aneurysms are seen. NECK CT ANGIOGRAPHY: Carotid system: The great vessels demonstrate a conventional anatomy as they arise from the aortic arch. The origins of the common carotid arteries appear patent. The common carotid arteries demonstrate normal caliber and courses. The bifurcation regions are both widely patent. The internal carotid arteries demonstrate normal calibers and courses. Posterior circulation: The origins of the vertebral arteries both appear widely patent. The more superior extracranial portions of both vertebral arteries also demonstrate normal courses and calibers. They join to form a normal appearing basilar artery. Soft tissues: Visualized neck soft tissues demonstrate no suspicious abnormalities. Bones: No suspicious bony lesions. Visualized cervical spine appears normally aligned. IMPRESSION: No significant intracranial arterial abnormality is seen. No significant abnormality is seen within the arteries of the neck. Any quantitative measurements of stenosis were performed using NASCET criteria. Dictated by: Saulo William M.D. on 07/02/2023 at 18:32 on 07/02/2023 Approved by: Saulo William M.D. on 07/02/2023 at 18:32 ECG Data Attestation: I personally reviewed and interpreted this ECG as follows: Prior ECG tracings: available for review Interpretation: Atrial fibrillation rate of 90 QRS is 78 QTC of 423. No acute ST elevation depression noted. Nonspecific change. Patient has prior on 12/12/2013 which appears similar in ST segments and shows atrial fibrillation. MDM Narrative Medical decision making narrative: 77-year-old with reported suspected stroke, facial droop possible weakness. Difficult to assess the patient he has not following commands but is alert. Patient has known dementia but typically can give his name and reportedly ambulate. No clear facial droop on examination but patient does have some decreased inventory control manager on the left although difficult to assess otherwise. Give someone word answers but are nonsensical. Unable to perform NIH scale secondary to inability to follow commands. Patient is on Xarelto and not candidate for tPA. Initial non-con head CT is negative as well as CT head and neck Angio, results called to myself by Dr. William Lab, CBC is negative INR is is 1.3 CMP shows a sodium of 135 otherwise normal electrolytes, LFTs, renal function with a total CK of 24 and a troponin of EKG shows atrial fibrillation rate controlled at 90 Patient is COVID positive UA is positive for leukocyte esterase, 5-10 WBCs and few bacteria, no nitrates. UDS and ETOH is negative Spoke with who is at bedside, she had lunch with him today she states he seemed tired but no lateralizing weakness she states he had normal speech. He did not eat lunch which was atypical. She states no fevers he has been otherwise himself up until today. She does not appreciate any lateralizing weakness or droop. She states this is not his normal baseline mental status. Spoke with Dr. Quintero, hospitalist: Patient does have some clear changes consistent with confusion with positive UTI positive COVID, clear had true stroke or not it is difficult to assess but no clear lateralizing symptoms. Accepts for observation. Discharge Plan Departure Patient Disposition: Admitted as Observation Clinical Impression: Acute UTI, COVID-19 virus infection, Altered mental status Admit Date/Time: 07/02/23 21:27 Admit Provider: Win Quintero
[2023-07-02 18:46] LABS: Add Manual Diff / Slide Review NO; Basophils Absolute Auto 0 /uL (0-100); Basophils Percent Auto 0.2 % (0-2); Eosinophils Absolute Auto 100 /uL (0-450); Eosinophils Percent Auto 0.6 % (2-4); Hematocrit 42.1 % (41-53); Hemoglobin 14.4 g/dL (13.5-17.5); Lymphocytes Absolute Auto 500 /uL (1100-4500); Lymphocytes Percent Auto 5.2 % (25-40); Mean Corpuscular HGB Conc 34.3 % (30-36); Mean Corpuscular Hemoglobin 33.1 PG (26-34); Mean Corpuscular Volume 96.7 fL (80-100); Monocytes Absolute Auto 800 /uL (0-900); Monocytes Percent Auto 9.1 % (3-14); Neutrophils Absolute Auto 7800 /uL (1500-7000); Neutrophils Percent Auto 84.9 % (50-75); Platelet Count 204 X10^3/uL (150-400); Red Blood Cell Count 4.35 X10^6/uL (4.5-5.9); Red Cell Distribution Width 13.3 % (11.6-14.8); White Blood Cell Count 9.2 X10^3/uL (4.5-11.0)
[2023-07-02 19:00] LABS: UR Morphine/Opiate cutoff 300 Negative (Negative); Ur Creatinine Normal (Normal); Ur Specific Gravity Normal (Normal); Urine Amphetamines Negative (Negative); Urine Barbiturates Negative (Negative); Urine Benzodiazepines Negative (Negative); Urine Cocaine Negative (Negative); Urine MDMA Negative (Negative); Urine Methadone Negative (Negative); Urine Methamphetamines Negative (Negative); Urine Oxycodone Negative (Negative); Urine Phencyclidine Negative (Negative); Urine Tetrahydrocannabinol Negative (Negative); Urine Tricyclic Antidepressant Negative (Negative); Urine pH Normal (Normal)
[2023-07-02 19:03] LABS: Appearance Urine UA CLEAR; Bilirubin Urine UA NEGATIVE (NEGATIVE); Color Urine UA YELLOW; Glucose Urine UA NEGATIVE (Negative); Ketones Urine UA NEGATIVE (NEGATIVE); Leukocyte Esterase Urine UA 1+ (NEGATIVE); Nitrite Urine UA NEGATIVE (Negative); Occult Blood Urine UA NEGATIVE (Negative); Protein Urine UA NEGATIVE (Negative); pH Urine UA 6.5 (4.5-8.0)
[2023-07-02 19:17] LABS: Amorphous Sediment Urine 1+; Bacteria Urine Few (2-10); RBC Urine 0-1/HPF (0-5/HPF); Squamous Epithelial Cell Urine 0-1 /HPF (0-5/HPF); Urine Volume 10mL (spun); WBC Urine 5-10/HPF (0-5/HPF)
[2023-07-02 19:18] LABS: Culture Indicated Urine Specimen Cultured
--- NOTE | 2023-07-02 19:22 | PC.NURSE ---
Addendum entered by Ana Branch R.N. 07/02/23 19:28: NIHSS performed with assistance from Dr. Bobby and SHANNON Henry from [facility]. Patient unable to follow commands. Patient smiled and furrowed brows throughout the course of the exam, however not on command. No facial droop noted. Patient moving all limbs freely and with ease. He stood at bedside without any weakness or unsteadiness. Unable to follow commands or answer questions appropriately to perform visual, sensory, or ataxia exam. Original Note: NIHSS performed with assistance from Dr. Bobby and SHANNON Henry from [facility]. Patient unable to follow commands. Patient smiled and furrowed brows throughout the course of the exam, however not on command. No facial droop noted. Patient moving all limbs freely and with ease. He stood at bedside without any weakness or unsteadiness. Unable to follow commands or answer questions appropriately to perform visual or ataxia exam.
[2023-07-02 19:29] LABS: INR 1.3 (0.9-1.3); Prothrombin Time 14.6 SECONDS (9.4-12.5)
[2023-07-02 19:32] LABS: PTT Partial Thromboplastin Tim 39 SECONDS (25.1-36.5)
[2023-07-02 19:33] LABS: Alanine Aminotransferase 24 IU/L (<50); Albumin 4.3 g/dL (3.5-5.0); Albumin Globulin Ratio 1.2 (1.0-2.8); Alkaline Phosphatase 98 U/L (38-126); Aspartate Aminotransferase 28 IU/L (17-59); BUN Creatinine Ratio 20.8 (6-22); Bilirubin Total 0.9 mg/dL (0.2-1.3); Blood Urea Nitrogen 15 mg/dL (9-20); Calcium 9.1 mg/dL (8.4-10.2); Carbon Dioxide 27 mmol/L (22-32); Chloride 98 mmol/L (98-107); Creatine Kinase 24 U/L (55-170); Estimated Glomerular Filt Rate > 60 mL/min (>60); Ethanol (ETOH) < 10 mg/dL; Globulin 3.7 g/dL (1.7-4.1); Glucose 97 mg/dL (80-110); HEMOLYSIS 16 (0-50); Potassium 3.8 mmol/L (3.4-5.1); Sodium 135 mmol/L (137-145)
[2023-07-02 19:40] LABS: Influenza A - CEPHEID Flu A NEGATIVE (NEGATIVE); Influenza B - CEPHEID Flu B NEGATIVE (NEGATIVE); Respiratory Syncytial Virus Negative (Negative)
[2023-07-02 19:43] LABS: COVID-19 CEPHEID 4-PLEX PCR POSITIVE (Negative)
[2023-07-02 19:44] LABS: Troponin I < 0.012 ng/mL (0.01-0.034)
[2023-07-02] MEDS: cefTRIAXone 1,000 MG in SODIUM CHLORIDE 0.9% 100 ML 200 MG IV (21:22)
[2023-07-03] MEDS: SODIUM CHLORIDE 0.9% 1,000 ML 100 ML IV (01:28)
--- NOTE | 2023-07-03 02:59 | PC.ADMIT ---
Addendum entered by Kelly Shaver R.N. 07/03/23 05:59: Patient having difficulty swallowing. Received diet order for NPO and swallow eval. Original Note: [email or web address] [facility] [address] Admission Note: Patient admitted to AC unit from ED @ 22:00, transferred via stretcher and assisted to bed with slideboard. Spouse and daughter present upon admission. Patient alert and oriented to self. Difficult to assess because pt doesn't answer any of the questions I have asked. VSS, afebrile. No signs/symptoms of pain. Bed in low and locked position, call light within reach. Bed alarm is on for safety. The patient,Burt Hatch,77 y/o, was given written information regarding hospital policies, unit procedures and contact persons. Patient's smoking status: Never smoker. Vital Signs - 8 hr 07/02/23 19:00 07/02/23 19:00 07/02/23 19:16 Temperature Pulse Rate 92 H Respiratory Rate 20 Blood Pressure 158/111 H 154/100 H Pulse Oximetry 96 Oxygen Delivery Method Nasal Cannula 07/02/23 19:16 07/02/23 19:30 07/02/23 19:30 Temperature Pulse Rate 101 H 94 H Respiratory Rate 24 22 Blood Pressure 143/78 H Pulse Oximetry 95 96 Oxygen Delivery Method Room Air 07/02/23 20:00 07/02/23 20:00 07/02/23 20:30 Temperature Pulse Rate 91 H 100 H Respiratory Rate 18 20 Blood Pressure 134/61 Pulse Oximetry 96 94 Oxygen Delivery Method Room Air 07/02/23 20:30 07/02/23 21:00 07/02/23 21:00 Temperature Pulse Rate 100 H Respiratory Rate 18 Blood Pressure 154/80 H 150/73 H Pulse Oximetry 94 Oxygen Delivery Method 07/02/23 21:30 07/02/23 21:30 07/02/23 22:05 Temperature 101 F H 99.3 F Pulse Rate 99 H 78 Respiratory Rate 17 16 Blood Pressure 125/68 124/75 Pulse Oximetry 95 95 Oxygen Delivery Method Room Air
[2023-07-03 05:18] VITALS: BP 115/68; PULSE 84; RESP 15; TEMP 36.3; O2SAT 96
--- NOTE | 2023-07-03 06:11 | PC.WOUNDPHOT ---
Callus to right toe, bottom of left foot, and right toe.
--- NOTE | 2023-07-03 07:12 | PM.HP.1 ---
History of Present Illness History of Present Illness Date Patient Seen: 07/02/23 Time Patient Seen: 23:45 Chief complaint: Code Stroke Narrative: 77 years old male with a past medical history of hypertension, dyslipidemia, atrial fibrillation, obstructive sleep apnea, cognitive decline/dementia and other medical issues was brought to the emergency room for progressive weakness with apparent facial droop. Patient is functional but does have memory issues. Most of the history has been obtained from caregiver/medical records. Does not appear to be in acute distress. Denies any chest pain or shortness of breath in the ED, there is no appreciable facial droop noted. Further workup showed WBC scan including the urine analysis. COVID was positive and the drug screen was negative. Electrolytes were fairly unremarkable. Follow-up CT scan of the brain shows no acute process and CT angio of the head and neck showed no significant vascular abnormality. Patient was initiated on IV Rocephin for possible urinary tract infection and admitted for further evaluation [facility] Medical History Chronic 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 Benign prostatic hyperplasia Lower urinary tract symptoms Asymptomatic microscopic hematuria Greater trochanteric bursitis of right hip Folate deficiency Sleep walking Hypotension Easy bruisability Chronic anticoagulation Bilateral finger numbness Cervical radiculopathy Segmental and somatic dysfunction of rib cage Somatic dysfunction of lower extremity Cervical somatic dysfunction Cranial somatic dysfunction Stiff neck Squamous cell carcinoma, leg Screening for prostate cancer 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 Foot joint stiffness, bilateral Thoracic region somatic dysfunction Central stenosis of spinal canal Lumbar foraminal stenosis Segmental and somatic dysfunction of abdomen and other regions Sacral region somatic dysfunction Pelvic somatic dysfunction Lumbar region somatic dysfunction Atrial fibrillation Fatigue (~11/23/19) Cognitive decline Obstructive sleep apnea of adult Low back pain Concussion Fall (on) (from) other stairs and steps, sequela Dizziness Heart disease Surgical History History of right hip replacement Hx of Achilles tendon repair Hx of umbilical hernia repair Family History Father Blood disease Diabetes mellitus Eczema Hearing impairment Mother Melanoma Social History marital status: details: to Елена household members: spouse lives independently: Yes caregiver/support person: No education level: college occupational status: previously employed (now retired) 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 [employer] leisure activities: other (speaks frequently via Zoom with grandkids, who live in [place]) Smoking Status: Never smoker alcohol intake: current Type(s) of exercise: walking frequency: 1-2 times per week Meds Home Medications and Allergies Home Medications Medication Instructions Recorded Confirmed Type Disabled Parking permit #1 ea 06/19/21 04/19/23 Rx B-complex with vitamin C 1 tab PO DAILY 11/28/21 07/02/23 History Theracurmin 1 cap PO BID 11/28/21 04/19/23 History ascorbic acid-elderberry fruit 1 gummy PO 2XD supplement 11/28/21 07/02/23 History [Airborne (elderberry)] cholecalciferol (vitamin D3) 25 50 mcg PO DAILY 11/28/21 07/02/23 History mcg (1,000 unit) capsule diphenhydramine HCl 25 mg tablet 12.5 mg PO DAILY PRN leg cramps 11/28/21 07/03/23 History (Benadryl Allergy) elderberry fruit [Sambucus 1 cap PO BID 11/28/21 07/03/23 History Elderberry Original] glucosamine-chondroitin 1 cap PO TID 11/28/21 07/02/23 History magnesium oxide 400 mg PO DAILY 11/28/21 07/03/23 History salmon oil-omega-3 fatty acids 1 cap PO BID 11/28/21 07/03/23 History vitamin E 268 mg (400 unit) capsule 400 unit PO DAILY 11/28/21 04/19/23 History Resmed Airsense 10 CPAP #1 ea 01/21/22 04/19/23 History donepezil 10 mg tablet 10 mg PO .in the evening #90 tabs 10/16/22 07/02/23 Rx rivaroxaban 20 mg tablet (Xarelto) 20 mg PO DAILY #90 tabs 10/16/22 07/03/23 Rx trazodone 50 mg tablet 50 mg PO BEDTIME PRN Anxiety 04/19/23 07/03/23 History Efudex 5 % topical PRN skin cancer 07/03/23 History acetaminophen 325 mg tablet 325 mg PO QID PRN discomfort or 07/03/23 07/03/23 History (Tylenol) fever calcipotriene 0.005 % topical topical 07/03/23 History ointment memantine 5 mg tablet 5 mg PO DAILY 07/03/23 07/03/23 History metoprolol succinate 25 mg 25 mg PO BEDTIME 07/03/23 07/03/23 History tablet,extended release 24 hr quetiapine 25 mg tablet (Seroquel) 25 mg PO Q6-8H PRN Anxiety 07/03/23 07/03/23 History Allergies Allergy/AdvReac Type Severity Reaction Status Date / Time No Known Drug Allergies Allergy Verified 07/02/23 19:32 Review of Systems Review of Systems Narrative: confused Exam Vital Signs (past 8 hours): - 07/03/23 05:18 Temperature 97.3 F L Pulse Rate 84 Respiratory Rate 15 Blood Pressure 115/68 Pulse Oximetry 96 Oxygen Delivery Method Room Air Narrative Exam Narrative: Air entry diminished bilaterally at the base. Crackles heard at the base S1-S2 heard no S3 Objective Labs 07/02/23 18:36 07/02/23 19:12 Labs: Laboratory Results - last 24 hr 07/02/23 07/02/23 07/02/23 18:36 18:45 18:45 WBC 9.2 RBC 4.35 L Hgb 14.4 Hct 42.1 MCV 96.7 MCH 33.1 MCHC 34.3 RDW 13.3 Plt Count 204 Neut % (Auto) 84.9 H Lymph % (Auto) 5.2 L [place] % (Auto) 9.1 Eos % (Auto) 0.6 L Baso % (Auto) 0.2 Neut # (Auto) 7800 H Lymph # (Auto) 500 L [place] # (Auto) 800 Eos # (Auto) 100 Baso # (Auto) 0 PT INR APTT Sodium Potassium Chloride Carbon Dioxide BUN Creatinine Estimated GFR BUN/Creatinine Ratio Glucose Calcium Total Bilirubin AST ALT Alkaline Phosphatase Total Creatine Kinase Troponin I Total Protein Albumin Globulin Albumin/Globulin Ratio Urine Color Yellow Urine Appearance Clear Urine pH 6.5 Normal Ur Specific [place] 1.010 Urine Protein Negative Urine Glucose (UA) Negative Urine Ketones Negative Urine Occult Blood Negative Urine Nitrate Negative Urine Bilirubin Negative Urine Urobilinogen 1.0 Ur Leukocyte Esterase 1+ H Urine RBC 0-1/hpf Urine WBC 5-10/hpf H Ur Squamous Epith Cells 0-1 /hpf Amorphous Sediment 1+ Urine Bacteria Few (2-10) H Urine Yeast 0-1/hpf Ur Culture Indicated? Specimen cultured Vol Urine Centrifuged 10ml (spun) U Opiates 300ng/mL cut Negative Ur Oxycodone Screen Negative Urine Methadone Screen Negative Ur Barbiturates Screen Negative U Tricyclic Antidepress Negative Ur Phencyclidine Scrn Negative Ur Amphetamines Screen Negative U Methamphetamines Scrn Negative Ur MDMA Scrn (Ecstasy) Negative U Benzodiazepines Scrn Negative Urine Cocaine Screen Negative U Marijuana (THC) Screen Negative Urine Specific [place] Normal Ethyl Alcohol Ur Creatinine Normal SARS-CoV-2 (PCR) Positive H Influenza A (RT-PCR) Flu a negative Influenza B (RT-PCR) Flu b negative RSV (PCR) Negative 07/02/23 19:12 WBC RBC Hgb Hct MCV MCH MCHC RDW Plt Count Neut % (Auto) Lymph % (Auto) [place] % (Auto) Eos % (Auto) Baso % (Auto) Neut # (Auto) Lymph # (Auto) [place] # (Auto) Eos # (Auto) Baso # (Auto) PT 14.6 H INR 1.3 APTT 39 H Sodium 135 L Potassium 3.8 Chloride 98 Carbon Dioxide 27 BUN 15 Creatinine 0.72 Estimated GFR > 60 BUN/Creatinine Ratio 20.8 Glucose 97 Calcium 9.1 Total Bilirubin 0.9 AST 28 ALT 24 Alkaline Phosphatase 98 Total Creatine Kinase 24 L Troponin I < 0.012 Total Protein 8.0 Albumin 4.3 Globulin 3.7 Albumin/Globulin Ratio 1.2 Urine Color Urine Appearance Urine pH Ur Specific [place] Urine Protein Urine Glucose (UA) Urine Ketones Urine Occult Blood Urine Nitrate Urine Bilirubin Urine Urobilinogen Ur Leukocyte Esterase Urine RBC Urine WBC Ur Squamous Epith Cells Amorphous Sediment Urine Bacteria Urine Yeast Ur Culture Indicated? Vol Urine Centrifuged U Opiates 300ng/mL cut Ur Oxycodone Screen Urine Methadone Screen Ur Barbiturates Screen U Tricyclic Antidepress Ur Phencyclidine Scrn Ur Amphetamines Screen U Methamphetamines Scrn Ur MDMA Scrn (Ecstasy) U Benzodiazepines Scrn Urine Cocaine Screen U Marijuana (THC) Screen Urine Specific [place] Ethyl Alcohol < 10 Ur Creatinine SARS-CoV-2 (PCR) Influenza A (RT-PCR) Influenza B (RT-PCR) RSV (PCR) Assessment & Plan Assessment & Plan narrative: 77 years old male with a past medical history of hypertension, dyslipidemia, atrial fibrillation, obstructive sleep apnea, cognitive decline/dementia and other medical issues was brought to the emergency room for progressive weakness with apparent facial droop. Patient is functional but does have memory issues. Most of the history has been obtained from caregiver/medical records. Does not appear to be in acute distress. Denies any chest pain or shortness of breath in the ED, there is no appreciable facial droop noted. Further workup showed WBC scan including the urine analysis. COVID was positive and the drug screen was negative. Electrolytes were fairly unremarkable. Follow-up CT scan of the brain shows no acute process and CT angio of the head and neck showed no significant vascular abnormality. Patient was initiated on IV Rocephin for possible urinary tract infection and admitted for further evaluation 1 generalized weakness with altered mental status. Check and treat for any reversible factors including infection/electrolyte imbalance. Continue theantibiotic for underlying UTI. Does not appear to be in acute neurologic event but more of superimposed ongoing cognitive. Treatment is supportive closely 2. COVID infection. Patient saturating fairly well in the minute. Supportive care for now 3. Cognitive decline with dementia continue the home memantine and Seroquel 4 hypertension per resume the home metoprolol 5. DVT prophylaxis will be Lovenox 6 urinary tract infection. Pending cultures initiate Keflex Goals of care reviewed with caregivers and patient is DNR Patient will be admitted under observation status Patient was evaluated with the help of video communication device. The location of the provider was [facility]
--- NOTE | 2023-07-03 07:46 | PM.HP.1 ---
History of Present Illness History of Present Illness Chief complaint: Code Stroke Narrative: From Night Doctor: 77 years old male with a past medical history of hypertension, dyslipidemia, atrial fibrillation, obstructive sleep apnea, cognitive decline/dementia and other medical issues was brought to the emergency room for progressive weakness with apparent facial droop. Patient is functional but does have memory issues. Most of the history has been obtained from caregiver/medical records. Does not appear to be in acute distress. Denies any chest pain or shortness of breath in the ED, there is no appreciable facial droop noted. Further workup showed WBC scan including the urine analysis. COVID was positive and the drug screen was negative. Electrolytes were fairly unremarkable. Follow-up CT scan of the brain shows no acute process and CT angio of the head and neck showed no significant vascular abnormality. Patient was initiated on IV Rocephin for possible urinary tract infection and admitted for further evaluation Additional history: The patient's describes cognitive decline since 2018 but more rapid course over the last year. He is currently in a memory care unit at the [facility]. There has been a recent COVID outbreak. He was brought in for weakness. He was found to have a possible UTI as well as COVID. He was not hypoxic. The patient has lost the ability to recognize his or less several months in his also having some difficulty with eating. A speech therapist evaluation today indicated that he would need to have a modified diet. The patient is not able to speak and no additional history is obtainable from the patient. [facility] Medical History Chronic 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 Benign prostatic hyperplasia Lower urinary tract symptoms Asymptomatic microscopic hematuria Greater trochanteric bursitis of right hip Folate deficiency Sleep walking Hypotension Easy bruisability Chronic anticoagulation Bilateral finger numbness Cervical radiculopathy Segmental and somatic dysfunction of rib cage Somatic dysfunction of lower extremity Cervical somatic dysfunction Cranial somatic dysfunction Stiff neck Squamous cell carcinoma, leg Screening for prostate cancer 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 Foot joint stiffness, bilateral Thoracic region somatic dysfunction Central stenosis of spinal canal Lumbar foraminal stenosis Segmental and somatic dysfunction of abdomen and other regions Sacral region somatic dysfunction Pelvic somatic dysfunction Lumbar region somatic dysfunction Atrial fibrillation Fatigue (~11/23/19) Cognitive decline Obstructive sleep apnea of adult Low back pain Concussion Fall (on) (from) other stairs and steps, sequela Dizziness Heart disease Surgical History History of right hip replacement Hx of Achilles tendon repair Hx of umbilical hernia repair Family History Father Blood disease Diabetes mellitus Eczema Hearing impairment Mother Melanoma Social History marital status: details: to Елена household members: none lives independently: Yes caregiver/support person: No education level: college occupational status: previously employed (now retired) 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 [employer] leisure activities: other (speaks frequently via Zoom with grandkids, who live in [place]) Smoking Status: Never smoker alcohol intake: current Type(s) of exercise: walking frequency: 1-2 times per week Meds Home Medications and Allergies Home Medications Medication Instructions Recorded Confirmed Type Disabled Parking permit #1 ea 06/19/21 07/03/23 Rx B-complex with vitamin C 1 tab PO DAILY 11/28/21 07/02/23 History Theracurmin 1 cap PO BID 11/28/21 07/03/23 History ascorbic acid-elderberry fruit 1 gummy PO 2XD supplement 11/28/21 07/02/23 History [Airborne (elderberry)] cholecalciferol (vitamin D3) 25 50 mcg PO DAILY 11/28/21 07/02/23 History mcg (1,000 unit) capsule diphenhydramine HCl 25 mg tablet 12.5 mg PO DAILY PRN leg cramps 11/28/21 07/03/23 History (Benadryl Allergy) elderberry fruit [Sambucus 1 cap PO BID 11/28/21 07/03/23 History Elderberry Original] glucosamine-chondroitin 1 cap PO TID 11/28/21 07/02/23 History magnesium oxide 400 mg PO DAILY 11/28/21 07/03/23 History salmon oil-omega-3 fatty acids 1 cap PO BID 11/28/21 07/03/23 History vitamin E 268 mg (400 unit) capsule 400 unit PO DAILY 11/28/21 07/03/23 History Resmed Airsense 10 CPAP #1 ea 01/21/22 07/03/23 History donepezil 10 mg tablet 10 mg PO .in the evening #90 tabs 10/16/22 07/02/23 Rx rivaroxaban 20 mg tablet (Xarelto) 20 mg PO DAILY #90 tabs 10/16/22 07/03/23 Rx trazodone 50 mg tablet 50 mg PO BEDTIME PRN Anxiety 04/19/23 07/03/23 History Efudex 5 % topical DAILY 07/03/23 07/03/23 History acetaminophen 325 mg tablet 325 mg PO QID PRN discomfort or 07/03/23 07/03/23 History (Tylenol) fever calcipotriene 0.005 % topical 1 applic topical DAILY 07/03/23 07/03/23 History ointment memantine 5 mg tablet 5 mg PO DAILY 07/03/23 07/03/23 History metoprolol succinate 25 mg 25 mg PO BEDTIME 07/03/23 07/03/23 History tablet,extended release 24 hr quetiapine 25 mg tablet (Seroquel) 25 mg PO Q6-8H PRN Anxiety 07/03/23 07/03/23 History Allergies Allergy/AdvReac Type Severity Reaction Status Date / Time No Known Drug Allergies Allergy Verified 07/02/23 19:32 Review of Systems Review of Systems Narrative: Not otherwise obtainable due to patient's cognitive impairment. Exam Vital Signs (past 8 hours): - 07/03/23 05:18 Temperature 97.3 F L Pulse Rate 84 Respiratory Rate 15 Blood Pressure 115/68 Pulse Oximetry 96 Oxygen Delivery Method Room Air Narrative Exam Narrative: NAD, alert and non-verbal. Normocephalic skull, EOMI, symmetric pupils. Does not follow commands. Lungs are clear, normal rate and effort. Heart is regular, no murmur gallop or rub. Abdomen is soft, non distended. Extremities are free of edema. He moves arms and legs spontaneously. No skin rash or lesions. Joints are not swollen or deformed. Objective Imaging CT scan - head: Radiologist's impression: No significant intracranial arterial abnormality is seen. No significant abnormality is seen within the arteries of the neck. Labs 07/03/23 09:00 07/03/23 09:00 Labs: Laboratory Results - last 24 hr 07/02/23 07/02/23 07/02/23 18:36 18:45 18:45 WBC 9.2 RBC 4.35 L Hgb 14.4 Hct 42.1 MCV 96.7 MCH 33.1 MCHC 34.3 RDW 13.3 Plt Count 204 Neut % (Auto) 84.9 H Lymph % (Auto) 5.2 L [place] % (Auto) 9.1 Eos % (Auto) 0.6 L Baso % (Auto) 0.2 Neut # (Auto) 7800 H Lymph # (Auto) 500 L [place] # (Auto) 800 Eos # (Auto) 100 Baso # (Auto) 0 PT INR APTT Sodium Potassium Chloride Carbon Dioxide BUN Creatinine Estimated GFR BUN/Creatinine Ratio Glucose Calcium Total Bilirubin AST ALT Alkaline Phosphatase Total Creatine Kinase Troponin I Total Protein Albumin Globulin Albumin/Globulin Ratio Urine Color Yellow Urine Appearance Clear Urine pH 6.5 Normal Ur Specific [place] 1.010 Urine Protein Negative Urine Glucose (UA) Negative Urine Ketones Negative Urine Occult Blood Negative Urine Nitrate Negative Urine Bilirubin Negative Urine Urobilinogen 1.0 Ur Leukocyte Esterase 1+ H Urine RBC 0-1/hpf Urine WBC 5-10/hpf H Ur Squamous Epith Cells 0-1 /hpf Amorphous Sediment 1+ Urine Bacteria Few (2-10) H Urine Yeast 0-1/hpf Ur Culture Indicated? Specimen cultured Vol Urine Centrifuged 10ml (spun) U Opiates 300ng/mL cut Negative Ur Oxycodone Screen Negative Urine Methadone Screen Negative Ur Barbiturates Screen Negative U Tricyclic Antidepress Negative Ur Phencyclidine Scrn Negative Ur Amphetamines Screen Negative U Methamphetamines Scrn Negative Ur MDMA Scrn (Ecstasy) Negative U Benzodiazepines Scrn Negative Urine Cocaine Screen Negative U Marijuana (THC) Screen Negative Urine Specific [place] Normal Ethyl Alcohol Ur Creatinine Normal SARS-CoV-2 (PCR) Positive H Influenza A (RT-PCR) Flu a negative Influenza B (RT-PCR) Flu b negative RSV (PCR) Negative 07/02/23 19:12 WBC RBC Hgb Hct MCV MCH MCHC RDW Plt Count Neut % (Auto) Lymph % (Auto) [place] % (Auto) Eos % (Auto) Baso % (Auto) Neut # (Auto) Lymph # (Auto) [place] # (Auto) Eos # (Auto) Baso # (Auto) PT 14.6 H INR 1.3 APTT 39 H Sodium 135 L Potassium 3.8 Chloride 98 Carbon Dioxide 27 BUN 15 Creatinine 0.72 Estimated GFR > 60 BUN/Creatinine Ratio 20.8 Glucose 97 Calcium 9.1 Total Bilirubin 0.9 AST 28 ALT 24 Alkaline Phosphatase 98 Total Creatine Kinase 24 L Troponin I < 0.012 Total Protein 8.0 Albumin 4.3 Globulin 3.7 Albumin/Globulin Ratio 1.2 Urine Color Urine Appearance Urine pH Ur Specific [place] Urine Protein Urine Glucose (UA) Urine Ketones Urine Occult Blood Urine Nitrate Urine Bilirubin Urine Urobilinogen Ur Leukocyte Esterase Urine RBC Urine WBC Ur Squamous Epith Cells Amorphous Sediment Urine Bacteria Urine Yeast Ur Culture Indicated? Vol Urine Centrifuged U Opiates 300ng/mL cut Ur Oxycodone Screen Urine Methadone Screen Ur Barbiturates Screen U Tricyclic Antidepress Ur Phencyclidine Scrn Ur Amphetamines Screen U Methamphetamines Scrn Ur MDMA Scrn (Ecstasy) U Benzodiazepines Scrn Urine Cocaine Screen U Marijuana (THC) Screen Urine Specific [place] Ethyl Alcohol < 10 Ur Creatinine SARS-CoV-2 (PCR) Influenza A (RT-PCR) Influenza B (RT-PCR) RSV (PCR) Assessment & Plan Assessment & Plan narrative: 1. Weakness with altered mental status. Present on admission and active. -Check and treat for any reversible factors including infection/electrolyte imbalance. -Continue antibiotic for possible underlying UTI. -Does not appear to be in acute neurologic event but more of superimposed ongoing cognitive. -Treatment is supportive closely 2. COVID infection without respiratory symptoms or hypoxemia. Present on admission and active. - Patient saturating fairly well in the minute. Supportive care for now, monitor for fever or hypoxemia. 3. Cognitive decline with dementia, present on admission and active. -Continue the home memantine and Seroquel 4. Hypertension, present on admission and active. - Per resume the home metoprolol 5. Urinary tract infection. Present on admission and active. - Pending cultures initiate Keflex QID. Had a level care discussion with the family. He is DNR, DNI. They would like antibiotics for now. They are considering the possibility of hospice given his rapid decline. I met with his and daughter. DVT prophylaxis: Lovenox. Goals of care reviewed with caregivers and patient is DNR Patient will be admitted under observation status Time Spent With Patient Time with patient: 30 to 49 minutes with 50% spent counseling/coordinating care Quality MIPS - Admit I confirm the patient?s Advance Care Plan is present, Code status is documented, Surrogate decision maker is in patient?s record [If Yes, STOP here]: Yes MIPS - Meds 'Current medications' to include all prescriptions, [id number] products, herbals, cannabis/cannabidiol products, and vitamin/mineral/dietary (nutritional) supplements. I have utilized all available resources to obtain, update, or review the patient?s current medications. [If Yes, STOP here]: Yes
[2023-07-03 09:51] LABS: BUN Creatinine Ratio 14.7 (6-22); Blood Urea Nitrogen 10 mg/dL (9-20); Calcium 8.8 mg/dL (8.4-10.2); Carbon Dioxide 27 mmol/L (22-32); Chloride 102 mmol/L (98-107); Estimated Glomerular Filt Rate > 60 mL/min (>60); Glucose 107 mg/dL (80-110); HEMOLYSIS < 15 (0-50); Magnesium 1.9 mg/dL (1.6-2.3); Phosphorous 3.2 mg/dL (2.3-3.7); Potassium 3.8 mmol/L (3.4-5.1); Sodium 135 mmol/L (137-145)
[2023-07-03 09:58] LABS: Add Manual Diff / Slide Review NO; Basophils Absolute Auto 0 /uL (0-100); Basophils Percent Auto 0.5 % (0-2); Eosinophils Absolute Auto 0 /uL (0-450); Eosinophils Percent Auto 0.3 % (2-4); Hematocrit 41.5 % (41-53); Hemoglobin 14.2 g/dL (13.5-17.5); Lymphocytes Absolute Auto 800 /uL (1100-4500); Lymphocytes Percent Auto 11.1 % (25-40); Mean Corpuscular HGB Conc 34.2 % (30-36); Mean Corpuscular Hemoglobin 33.2 PG (26-34); Monocytes Absolute Auto 1000 /uL (0-900); Monocytes Percent Auto 14.6 % (3-14); Neutrophils Absolute Auto 5100 /uL (1500-7000); Neutrophils Percent Auto 73.5 % (50-75); Platelet Count 177 X10^3/uL (150-400); Red Blood Cell Count 4.28 X10^6/uL (4.5-5.9); Red Cell Distribution Width 13.4 % (11.6-14.8); White Blood Cell Count 6.9 X10^3/uL (4.5-11.0)
--- NOTE | 2023-07-03 11:20 | CM.DANOTE ---
Patient is a 77 yo male who was admitted on 07/02/23 for Stroke R/O. Pt has REG MCR ADV for insurance and his PCP is Dr. Mynor Rai. EMR was reviewed. Per MD, pt with a hx of hypertension, AFIB, sleep apnea and advanced dementia and not a good historian and unable to follow commands. Pt admitted for COVID+, weakness, and likely UTI and started on IV-abx. Pt NPO due to swallow issues overnight and awaiting ST. SW met with spouse/DPOA Елена due to pt's dementia and explained role and she confirms that pt's cog impairment from dementia has advanced significantly over the past 9 months. Pt recently moved into [facility] about a month ago in May 2023. Pt typically ambulates independently with a cane or walker and has a hearty appetite without any modified diet. Spouse confirms that her preference is for pt to return to [facility] at discharge and SW explained the need for coordination with [facility] to confirm pt is close to baseline and that they can meet his needs and she acknowledged understanding. Spouse inquired if pt is not back to baseline and not improving would SNF be an option. SW explained the barriers to SNF being his dementia and need for 10 days of isolation due to COVID+. SW also discussed potential for Hospice referral if pt does not improve and preference is return to [facility]. Pt currently seems to be improving and on room air and alert but still with confusion due to baseline dementia. SW called Coby at [facility] and updated on pt status and she confirms some staff at [facility] have tested COVID+ and they are testing the other residents. Coby states pt will mostly need to be close to baseline with his independent ambulation with cane/walker. PARISA faxed initial clinicals to review and awaiting ST/PT eval and recommendations to also fax to [facility] to review. Plan: SW to follow closely for ST/PT eval notes to send to [facility] to confirm they can accept him back at d/c if close to his baseline. GARTH Veras Discharge Planning/Care Management CM Discharge Assessment Start: 07/03/23 11:17 Freq: Status: Active Protocol: Document 07/03/23 11:17 BF (Rec: 07/03/23 11:20 BF [id number]) Discharge Planning Assessment Assigned Cake Tester Pallavi, WATCHGUARD DPOA/Assigned Designee Name spouse Елена Contact Information [phone] Advance Directives? Yes Advance Directives on File No History Provided By Family Member,Significant Other,Medical Record Has Patient been admitted in last 30 No days? Prior Living Arrangements Assisted Living Comment [facility] Household Members none Type of transporation used prior to Relies on Others admit Facility Name Admitted From: [facility] Willing to Return to Facility? Yes Independent with ADL's No Is patient alert and oriented? No: advanced dementia Needs Assistance With Bathing,Meal Prep,Managing Medications,Home Chores / Shopping Caregiver for Another No Community Services used prior to Physical Therapy admission: Comment Been working with in-house PT at [facility] DME Already Rented / Owned FWW / Walker,Cane Comment Pending PT eval and recommendations to determine if pt back to baseline Barriers to Discharge Yes Comment COVID+ Discharge Plan Assisted Living Facility Transportation Arrangement Spouse vs facility van Additional Comment Pending PT eval and recommendations Whiteboard Updated in Patient Room with Yes name and ext. # of Cake Tester Review Status In Process Please Provide Date Initial DC 07/03/23 Assessment Was Performed Next Review Type Continued Stay Review
[2023-07-03 12:00] VITALS: BP 105/67; PULSE 75; RESP 16; TEMP 36.2; O2SAT 96
--- NOTE | 2023-07-03 12:45 | ST.IPCSEOM ---
Visit Care Team Role Provider Type Mynor Rai DO Family Provider Physician Primary Care Provider Specialty: Family Practice Address: [address] [place] [address] Email: Lizette Bobby DO Emergency Provider Physician Referring Provider Specialty: Emergency Medicine Address: [address] [place] [address] Email: [email or web address] Win Quintero MD Admit Provider Physician Attending Provider Specialty: Internal Medicine Address: [address] [place] [address] Fax: Email: Past Medical History (Last Reviewed 07/03/23 @ 07:47 by Nithin Rodriguez MD) Asymptomatic microscopic hematuria (Medical) Atrial fibrillation (Medical) Benign prostatic hyperplasia (Medical) Bilateral finger numbness (Medical) Central stenosis of spinal canal (Medical) Cervical radiculopathy (Medical) Cervical somatic dysfunction (Medical) Chronic anticoagulation (Medical) Chronic hip pain after total replacement of right hip joint (Medical) Cognitive decline (Medical) Concussion (Medical) Cranial somatic dysfunction (Medical) Dizziness (Medical) Easy bruisability (Medical) Fall (on) (from) other stairs and steps, sequela (Medical) Fatigue (Medical ~11/23/19) Folate deficiency (Medical) Foot joint stiffness, bilateral (Medical) Greater trochanteric bursitis of right hip (Medical) Heart disease (Medical) Hypotension (Medical) Low back pain (Medical) 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 (Medical) Lower urinary tract symptoms (Medical) Lumbar foraminal stenosis (Medical) Lumbar region somatic dysfunction (Medical) Obstructive sleep apnea of adult (Medical) Pelvic somatic dysfunction (Medical) Sacral region somatic dysfunction (Medical) Screening for prostate cancer (Medical) Segmental and somatic dysfunction of abdomen and other regions (Medical) Segmental and somatic dysfunction of rib cage (Medical) Senile dementia (Medical) Sleep walking (Medical) Somatic dysfunction of lower extremity (Medical) Squamous cell carcinoma, leg (Medical) Stiff neck (Medical) Thoracic region somatic dysfunction (Medical) Speech-Language Pathology Swallow Evaluation VIDEO ARCADE MANAGER Clinical Swallow Evaluation Start: 07/03/23 12:03 Freq: Status: Active Protocol: Document 07/03/23 12:03 MG (Rec: 07/03/23 12:45 MG [id number]) Clinical Swallow Evaluation Session Time Visit Start Time 10:35 Visit Stop Time 11:45 Total Visit Minutes 70 Visit Information Visit Number 1 Setting Assessment Location Acute Care Visit Type Note Type Initial evaluation Next Note Type Next Note Type Re-evaluation Patient Information Identification Type Name,Wristband History Per H&P: Pt is a 77 year old male with a past medical history of hypertension, dyslipidemia, atrial fibrillation, obstructive sleep apnea, cognitive decline /dementia and other medical issues was brought to the emergency room for progressive weakness with apparent facial droop. Patient is functional but does have memory issues. Most of the history has been obtained from caregiver/ medical records. Does not appear to be in acute distress . Denies any chest pain or shortness of breath in the ED, there is no appreciable facial droop noted. Further workup showed WBC scan including the urine analysis. COVID was positive and the drug screen was negative. Electrolytes were fairly unremarkable. Follow-up CT scan of the brain shows no acute process and CT angio of the head and neck showed no significant vascular abnormality. Patient was initiated on IV Rocephin for possible urinary tract infection and admitted for further evaluation Subjective Observations Pt was resting in bed with pt' s , Елена, present at bedside. Елена stayed the entire evaluation. Pt was confused and did not respond to questions or directions by the VIDEO ARCADE MANAGER. The pt required verbal and tactile cues to stay alert during assessment; pt was nodding on and off if not directly spoken to or worked with consistently. Intermittent cough heard prior to PO trials. Pt's reported that the pt has post nasal drip which leads him to cough at times. Pt's reports at baseline the pt has a great appetite and can eat independently. Pt's notes as well that he is not on a modified diet. Reported by Patient/Caregiver Other Symptoms Coughing,Other Comment Reports indicate the pt had difficulty swallowing during a meal so was placed NPO until ST evaluation could be done. Current Diet NPO Baseline Feeding Method Dependent for feeding The IDDSI Framework Protocol: IDDSI.1 Objective Assessment Comment Pt did not follow directions so a formal OME could not be completed. Infomal assessment indicates overall weakness. Food and Liquid Trials Position During Assessment Slightly reclined Liquids Trialed Ice chips,Thin (IDDSI 0), Mildly Thick (IDDSI 2), Moderately Thick (IDDSI 3 Solid Trials Purred (IDDSI 4),Minced & Moist (IDDSI 5) Administration Type Tea spoon,Cup single sip, Controlled cup sip,Dependent feeding Oral Impairment Moderately impaired Oral Phase Comments When mastication occurred, rapid chewing was noted. No anterior spillage observed. Delayed lip closure around spoon was observed as well. Pharyngeal Impairment Moderately impaired Pharyngeal Phase Comments Laryngeal palpation indicated slight reduced hyolaryngeal elevation and reduced anterior hyoid excursion. Delayed cough noted on teaspoon on thin liquid and immediate cough on single cup sip. Trialed mildly thick liquids and observed delayed cough on cup single sips. Trialed moderately thick liquids and no overt s/sx of aspiration noted. When pt took large sip, a delayed cough was noted. No overt s/sx of aspiration noted on puree consistency. With minced and moist consistency, the pt was noted to have an immediate cough. Spontaneous double swallow was noted intermittently throughout all trials. Fatigue/Endurance Moderate fatigue Comment Pt required verbal and tactile cueing to remain alert during trials. Further testing was not continued due to the pt's fatigue levels. The IDDSI Framework Protocol: IDDSI.1 Findings Swallowing Function Oropharyngeal phase dysphagia Severity of Swallow Impairment Moderately impaired Contributing Factors to Swallow Reduced alertness or attention Impairment ,Difficulty following directions,Reduced oral strength/coordination/ sensation,Impaired oral- pharyngeal transport,Reduced laryngeal excursion,Impaired airway protection Prognosis Fair Based on Cognitive status,History of aspiration/aspiration pneumonia,Comorbidities, Duration of symptoms/severity Impact on Safety and Functioning Risk for inadequate nutrition/ hydration Recommendations Swallowing Treatment Yes Recommended Solids Pureed (IDDSI 4) Recommended Liquids Moderately Thick (IDDSI 3) Other Recommendations Pt may require an MBSS to rule out silent aspiration however due to inability to follow directions and COVID+ test, unsure if it would be beneficial at this time. Can be completed as an outpatient procedure. Safety Precautions/Swallowing Supervision needed for all Recommendations meals,1 to 1 close supervision ,Feed only when alert,Remain upright (90 degrees) during all oral intake,Small bites and sips when eating,Slow rate ; swallow between bites,No straw,Multiple swallows,1 to 1 feeding assistance,Family assistance/supervision,Check for pocketing Medication Recommendations Whole in Carrier,Crushed in Carrier Discharge Recommendations watermelon inspector care facility Education Patient/Caregiver Education Described results of evaluation,Family/caregivers expressed understanding of evaluation,Family/caregivers expressed agreement with goals & treatment plans,Family/ caregivers expressed understanding of safety precautions,Family/caregivers expressed understanding of feeding recommendations, Patient requires further education/training,Family/ caregivers require further education/training Goals Short-term Goals Pt will continue to participate in therapeutic trials of solids and liquids in order to plan for a least restrictive diet meeting adequate hydration/nutrition needs. Pt and family will participate in further education re: modified diets, diet recommendations. Long-term Goals Pt will tolerate least restrictive diet and not demonstrate overt s/sx of aspiration.
--- NOTE | 2023-07-03 13:24 | P.PN_ITS ---
Subjective Subjective Interval history: The patient's describes cognitive decline since 2018 but more rapid course over the last year. He is currently in a memory care unit at the [facility]. There has been a recent COVID outbreak. He was brought in for weakness. He was found to have a possible UTI as well as COVID. He was not hypoxic. The patient has lost the ability to recognize his or less several months in his also having some difficulty with eating. A speech therapist evaluation today indicated that he would need to have a modified diet. The patient is not able to speak and no additional history is obtainable from the patient. Exam Vital Signs (past 8 hours): - 07/03/23 12:00 Temperature 97.1 F L Pulse Rate 75 Respiratory Rate 16 Blood Pressure 105/67 Pulse Oximetry 96 Oxygen Flow Rate 0 Oxygen Delivery Method Room Air Oxygen Flow Rate 0 Narrative Exam Narrative: NAD, alert and non-verbal. Normocephalic skull, EOMI, symmetric pupils. Does not follow commands. Lungs are clear, normal rate and effort. Heart is regular, no murmur gallop or rub. Abdomen is soft, non distended. Extremities are free of edema. He moves arms and legs spontaneously. No skin rash or lesions. Joints are not swollen or deformed. Objective Labs 07/03/23 09:00 07/03/23 09:00 Labs: Laboratory Results - last 24 hr 07/02/23 07/02/23 07/02/23 18:36 18:45 18:45 WBC 9.2 RBC 4.35 L Hgb 14.4 Hct 42.1 MCV 96.7 MCH 33.1 MCHC 34.3 RDW 13.3 Plt Count 204 Neut % (Auto) 84.9 H Lymph % (Auto) 5.2 L Williams % (Auto) 9.1 Eos % (Auto) 0.6 L Baso % (Auto) 0.2 Neut # (Auto) 7800 H Lymph # (Auto) 500 L Williams # (Auto) 800 Eos # (Auto) 100 Baso # (Auto) 0 PT INR APTT Sodium Potassium Chloride Carbon Dioxide BUN Creatinine Estimated GFR BUN/Creatinine Ratio Glucose Calcium Phosphorus Magnesium Total Bilirubin AST ALT Alkaline Phosphatase Total Creatine Kinase Troponin I Total Protein Albumin Globulin Albumin/Globulin Ratio Urine Color Yellow Urine Appearance Clear Urine pH 6.5 Normal Ur Specific Converse 1.010 Urine Protein Negative Urine Glucose (UA) Negative Urine Ketones Negative Urine Occult Blood Negative Urine Nitrate Negative Urine Bilirubin Negative Urine Urobilinogen 1.0 Ur Leukocyte Esterase 1+ H Urine RBC 0-1/hpf Urine WBC 5-10/hpf H Ur Squamous Epith Cells 0-1 /hpf Amorphous Sediment 1+ Urine Bacteria Few (2-10) H Urine Yeast 0-1/hpf Ur Culture Indicated? Specimen cultured Vol Urine Centrifuged 10ml (spun) U Opiates 300ng/mL cut Negative Ur Oxycodone Screen Negative Urine Methadone Screen Negative Ur Barbiturates Screen Negative U Tricyclic Antidepress Negative Ur Phencyclidine Scrn Negative Ur Amphetamines Screen Negative U Methamphetamines Scrn Negative Ur MDMA Scrn (Ecstasy) Negative U Benzodiazepines Scrn Negative Urine Cocaine Screen Negative U Marijuana (THC) Screen Negative Urine Specific Converse Normal Ethyl Alcohol Ur Creatinine Normal SARS-CoV-2 (PCR) Positive H Influenza A (RT-PCR) Flu a negative Influenza B (RT-PCR) Flu b negative RSV (PCR) Negative 07/02/23 07/03/23 19:12 09:00 WBC 6.9 RBC 4.28 L Hgb 14.2 Hct 41.5 MCV 97.0 MCH 33.2 MCHC 34.2 RDW 13.4 Plt Count 177 Neut % (Auto) 73.5 Lymph % (Auto) 11.1 L Williams % (Auto) 14.6 H Eos % (Auto) 0.3 L Baso % (Auto) 0.5 Neut # (Auto) 5100 Lymph # (Auto) 800 L Williams # (Auto) 1000 H Eos # (Auto) 0 Baso # (Auto) 0 PT 14.6 H INR 1.3 APTT 39 H Sodium 135 L 135 L Potassium 3.8 3.8 Chloride 98 102 Carbon Dioxide 27 27 BUN 15 10 Creatinine 0.72 0.68 Estimated GFR > 60 > 60 BUN/Creatinine Ratio 20.8 14.7 Glucose 97 107 Calcium 9.1 8.8 Phosphorus 3.2 Magnesium 1.9 Total Bilirubin 0.9 AST 28 ALT 24 Alkaline Phosphatase 98 Total Creatine Kinase 24 L Troponin I < 0.012 Total Protein 8.0 Albumin 4.3 Globulin 3.7 Albumin/Globulin Ratio 1.2 Urine Color Urine Appearance Urine pH Ur Specific Converse Urine Protein Urine Glucose (UA) Urine Ketones Urine Occult Blood Urine Nitrate Urine Bilirubin Urine Urobilinogen Ur Leukocyte Esterase Urine RBC Urine WBC Ur Squamous Epith Cells Amorphous Sediment Urine Bacteria Urine Yeast Ur Culture Indicated? Vol Urine Centrifuged U Opiates 300ng/mL cut Ur Oxycodone Screen Urine Methadone Screen Ur Barbiturates Screen U Tricyclic Antidepress Ur Phencyclidine Scrn Ur Amphetamines Screen U Methamphetamines Scrn Ur MDMA Scrn (Ecstasy) U Benzodiazepines Scrn Urine Cocaine Screen U Marijuana (THC) Screen Urine Specific Converse Ethyl Alcohol < 10 Ur Creatinine SARS-CoV-2 (PCR) Influenza A (RT-PCR) Influenza B (RT-PCR) RSV (PCR) [facility] Medical History Chronic 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 Benign prostatic hyperplasia Lower urinary tract symptoms Asymptomatic microscopic hematuria Greater trochanteric bursitis of right hip Folate deficiency Sleep walking Hypotension Easy bruisability Chronic anticoagulation Bilateral finger numbness Cervical radiculopathy Segmental and somatic dysfunction of rib cage Somatic dysfunction of lower extremity Cervical somatic dysfunction Cranial somatic dysfunction Stiff neck Squamous cell carcinoma, leg Screening for prostate cancer 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 Foot joint stiffness, bilateral Thoracic region somatic dysfunction Central stenosis of spinal canal Lumbar foraminal stenosis Segmental and somatic dysfunction of abdomen and other regions Sacral region somatic dysfunction Pelvic somatic dysfunction Lumbar region somatic dysfunction Atrial fibrillation Fatigue (~11/23/19) Cognitive decline Obstructive sleep apnea of adult Low back pain Concussion Fall (on) (from) other stairs and steps, sequela Dizziness Heart disease Surgical History History of right hip replacement Hx of Achilles tendon repair Hx of umbilical hernia repair Family History Father Blood disease Diabetes mellitus Eczema Hearing impairment Mother Melanoma Social History marital status: details: to Елена household members: none lives independently: Yes caregiver/support person: No education level: college occupational status: previously employed (now retired) 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 Weakness with altered mental status. Present on admission and active. -Check and treat for any reversible factors including infection/electrolyte imbalance. -Continue antibiotic for possible underlying UTI. -Does not appear to be in acute neurologic event but more of superimposed ongoing cognitive. -Treatment is supportive closely 2. COVID infection without respiratory symptoms or hypoxemia. Present on admission and active. - Patient saturating fairly well in the minute. Supportive care for now, monitor for fever or hypoxemia. 3. Cognitive decline with dementia, present on admission and active. -Continue the home memantine and Seroquel 4. Hypertension, present on admission and active. - Per resume the home metoprolol 5. Urinary tract infection. Present on admission and active. - Pending cultures initiate Keflex QID. Had a level care discussion with the family. He is DNR, DNI. They would like antibiotics for now. They are considering the possibility of hospice given his rapid decline. I met with his and daughter. DVT prophylaxis: Lovenox. Goals of care reviewed with caregivers and patient is DNR
[2023-07-03] MEDS: cephALEXin 250 MG CAPSULE 500 MG PO (14:39)
--- NOTE | 2023-07-03 14:45 | PT.IIE ---
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 Cognitive decline Concussion Cranial somatic dysfunction Dizziness Easy bruisability Fall (on) (from) other stairs and steps, sequela Fatigue (~11/23/19) Folate deficiency Foot joint stiffness, bilateral Greater trochanteric bursitis of right hip Heart disease Hypotension Low back pain 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 Lower urinary tract symptoms Lumbar foraminal stenosis Lumbar region somatic dysfunction Obstructive sleep apnea of adult Pelvic somatic dysfunction Sacral region somatic dysfunction Screening for prostate cancer Segmental and somatic dysfunction of abdomen and other regions Segmental and somatic dysfunction of rib cage Senile dementia Sleep walking Somatic dysfunction of lower extremity Squamous cell carcinoma, leg Stiff neck Thoracic region somatic dysfunction Physical Therapy Inpatient Evaluation/Re-Eval M1 PT/OT-IP Prior Functional Status Start: 07/03/23 15:40 Freq: NEEDED Status: Active Protocol: Document 07/03/23 14:45 AB (Rec: 07/03/23 16:01 AB [id number]) Medical Review Prior Functional Status Medical History Reviewed Yes Communication pt is unable to answer questions and is not consistent with following directions. Mobility and Gait spouse provided pt's PLOF: stated that pt lives at [facility] and is SBA with bed mobility, transfers and ambulation using mostly a SPC but uses a FWW at night Social History Household Members none Living Arrangements Skilled Nurse Facility Number of Stairs To Enter/Railing? pt lives at [facility] Home Environment Standard Height Toilet,Walk in Shower Home Equipment Front Wheel Walker,Straight Cane,Hand Held Shower,Grab Bars Near Toilet,Grab Bars In Shower M2 PT-IP Current Condition Start: 07/03/23 15:40 Freq: NEEDED Status: Active Protocol: Document 07/03/23 14:45 AB (Rec: 07/03/23 16:01 AB [id number]) Physical Therapy Current Condition Current Condition Evaluation Date 07/03/23 Treatment Diagnosis UTI; Covid; AMS; difficutly in walking Onset Date 07/02/23 M3 PT-IP Subjective Start: 07/03/23 15:40 Freq: NEEDED Status: Active Protocol: Document 07/03/23 14:45 AB (Rec: 07/03/23 16:01 AB [id number]) Subjective Physical Therapy Visit Type Type Initial Evaluation Visit Start Time 14:45 Visit Stop Time 15:40 Number of BONBON DIPPER Visits 0 Therapy Pain Assessment Pain When Pain Assessed During Mobility Pain Present Pain Present Pain Reported Location Left Hip Scale Used pain scale not stated Pain Management Techniques Distraction,Modification of Treatment,Re-positioning, Timing of Activity with Medications M4 PT-IP Mobility and Gait Start: 07/03/23 15:40 Freq: NEEDED Status: Active Protocol: Document 07/03/23 14:45 AB (Rec: 07/03/23 16:01 AB [id number]) PT-Bed Mobility Assessment Supine to Sit Supine to Sit Maximum Assistance,Total Assistance,2 Person Assistance ,Head of Bed Elevated,Bedrails Sit to Supine Sit to Supine Total Assistance,2 Person Assistance PT-Transfer Assessment Sit to and From Stand Sit to and from Stand Maximum Assistance,2 Person Assistance,Use of Upper Extremities Equipment Transfer Assistive Device Gait Belt,Front Wheeled Walker Orthotic/Prosthetic Devices or Brace: No Comments Mobility Comments pt with nurse and NAC assisting pt with hygiene care and brief change. PT came for eval. pt able to utter some words but unable to answer questions and is not consistent with following directions. required one step repeated cues with all tasks and needs increase time to process. completed supine to sit max A x 2 and max cues with HOB elevated. pt with increas posterior trunk lean in sitting requiring max A for sitting balance and max cues to lean forward. demonstrates increase resistance with overall body tightness when moved/assisted and unable to follow and comprehend instructions consistently. assisted pt with scooting to EOB but with resistance with movement and c /o L hip pain. spouse arrived . aware that pt is doing PT session. attempted to scoot pt again and pt saying ouch. spouse stated that pt has back issues and hx of R hip sx . completed sit to stand max A and max cues requiring several attempts to stand and max A x 2 . pt required max A x 2 for standing balance using FWW for support. attempted to transfer to chair but pt unable with increase overal trunk stiffining/resistance and unable to pivot despite max A x 2 provided. assisted pt back to sit on EOB max A x 2. spouse [facility] was able to ambulate using a SPC before. attempted sit to stand again and completed max A x 2 and max cues. pt able to stand ~ 8 sec using fWW for support max A x 2 attempted to transfer to chair again but unable . pt unable to follow instructs and will agree or say yes but not move. sat pt on EOB again. assisted pt to bed total A x 2 and max cues. positioned pt in bed total A x 2-3 and max cues. call light and table placed within reach . spouse in room obtained pt's PLOF. spouse with lots of concerns and informed spouse that PT will work on pt while pt is in the hospital but also depending on other factors: level of alertness, following directions, carryover of safety instructions and progress. spouse aware. Gait Assessment Comments Gait Comments unable at this time PT-Balance Assessment Sitting Balance and Reactions Static Sitting Balance Ability Poor Dynamic Sitting Balance Ability Poor Standing Balance and Reactions Static Standing Balance Ability Poor Dynamic Standing Balance Ability Poor Device Used FWW M5 PT-IP Objective Assessments Start: 07/03/23 15:40 Freq: NEEDED Status: Active Protocol: Document 07/03/23 14:45 AB (Rec: 07/03/23 16:01 AB [id number]) Orientation Orientation/Cognition Level of Alertness Confusional State Safety Awareness Decreased Safety Awareness Memory Description Short Term Impaired,Shower Maid Impaired Gross Range of Motion Lower Extremity ROM Assessment Within Functional Limits Strength Lower Extremity Strength Assessment Within Functional Limits Muscle Tone Muscle Tone WNL Yes M6 PT-IP Treatment Start: 07/03/23 15:40 Freq: NEEDED Status: Active Protocol: Document 07/03/23 14:45 AB (Rec: 07/03/23 16:01 AB [id number]) Physical Therapy Treatment Education Education Provided Safety M7 PT-IP Assessment and Plan Start: 07/03/23 15:40 Freq: NEEDED Status: Active Protocol: Document 07/03/23 14:45 AB (Rec: 07/03/23 16:01 AB [id number]) PT Summary Assessment and Plan Potential Rehabilitation Potential Fair Status of Condition at Evaluation Evolving Summary Impairments Pain,ROM,Strength,Balance, Coordination,Sensation,Tone, Cognition,Bed Mobility, Transfers,Gait,Activity Tolerance Assessment Summary pt is a 77 y/o M who presented to the ED with concerns of CVA. pt admitted for UTI, Covid and altered mental status. pt is a resident of [facility]. d/c plan depending on progress and if [facility] will be able to provide assistance needed by pt. Currently, pt requiring total A x 2 / mechanical lift transfers and is non- ambulatory. pt requires max cues with all tasks. will continue to assess progress. Goals Bed Mobility Goal Moderate Assistance Transfer Goal Moderate Assistance,Front Wheeled Walker Gait Goal Moderate Assistance,Front Wheel Walker Gait Distance 25 Other Goals improve bed mobility, transfers and ambulation using FWW/SPC 200 ft SBA Days to Meet Goals 10 Frequency of Treatment Frequency Of Treatment Once a Day Treatment Plan Physical Therapy Treatment Plan Bed Mobility Training,Transfer Training,Gait Training, Therapeutic Exercise,Balance Retraining,Discharge Planning, Hot or Cold Pack,Neuromuscular Re-ed,Coordination Retraining ,Manual Therapy Precautions Other Precautions Covid; falls Recommendations To Nursing Amount of Assist Needed Mechanical Lift Discharge Recommendations PT Discharge Recommendations Home with / Assist Available,Home Health,SNF Rehab,Home vs SNF Transportation Needs at Discharge Wheelchair/Cabulance,Stretcher /Ambulance
[2023-07-03 18:00] VITALS: RESP 18
--- NOTE | 2023-07-03 18:43 | PC.NURSE ---
Pt resting at intervals Speech eval done , thicker consistency recommended. Turn & change brief q 2 hr. Pt family in room, pt IVF infusing into LAC as per orders. Call light w/in reach, bed alarm on for pt safety. Conntinue w/plan of care
[2023-07-03 20:45] VITALS: BP 118/70; PULSE 77; RESP 18; TEMP 37.1; O2SAT 95
[2023-07-03] MEDS: cefTRIAXone 1,000 MG in SODIUM CHLORIDE 0.9% 100 ML 200 MG IV (21:01)
[2023-07-04] MEDS: SODIUM CHLORIDE 0.9% 1,000 ML 100 ML IV ×2 (03:52→14:00)
[2023-07-04 04:20] VITALS: BP 133/59; PULSE 95; RESP 16; TEMP 36.9; O2SAT 97
--- NOTE | 2023-07-04 08:01 | P.PN_ITS ---
Subjective Subjective Interval history: He is a 77 year old male with severe dementia. The patient's describes cognitive decline since 2018 but more rapid course over the last year. He is currently in a memory care unit at the [facility]. There has been a recent COVID outbreak. He was brought in for weakness. He was found to have a possible UTI as well as COVID. He was not hypoxic. The patient has lost the ability to recognize his or less several months in his also having some difficulty with eating. A speech therapist evaluation today indicated that he would need to have a modified diet. The patient is not able to speak and no additional history is obtainable from the patient. He is low more communicative today, remains very weak with physical therapy. S: Answers that his name is [email or web address]. Exam Vital Signs (past 8 hours): - 07/04/23 04:20 Temperature 98.5 F Pulse Rate 95 H Respiratory Rate 16 Blood Pressure 133/59 L Pulse Oximetry 97 Oxygen Flow Rate 0 Oxygen Delivery Method Room Air Oxygen Flow Rate 0 Narrative Exam Narrative: NAD, alert and not oriented. Minimal speech. Lungs are clear, normal rate and effort. Heart is regular, no murmur gallop or rub. Abdomen is soft, non distended. Extremities are free of edema. Objective Labs 07/04/23 09:25 07/04/23 09:25 Labs: Laboratory Results - last 24 hr 07/03/23 09:00 WBC 6.9 RBC 4.28 L Hgb 14.2 Hct 41.5 MCV 97.0 MCH 33.2 MCHC 34.2 RDW 13.4 Plt Count 177 Neut % (Auto) 73.5 Lymph % (Auto) 11.1 L [place] % (Auto) 14.6 H Eos % (Auto) 0.3 L Baso % (Auto) 0.5 Neut # (Auto) 5100 Lymph # (Auto) 800 L [place] # (Auto) 1000 H Eos # (Auto) 0 Baso # (Auto) 0 Sodium 135 L Potassium 3.8 Chloride 102 Carbon Dioxide 27 BUN 10 Creatinine 0.68 Estimated GFR > 60 BUN/Creatinine Ratio 14.7 Glucose 107 Calcium 8.8 Phosphorus 3.2 Magnesium 1.9 [facility] Medical History Chronic 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 Benign prostatic hyperplasia Lower urinary tract symptoms Asymptomatic microscopic hematuria Greater trochanteric bursitis of right hip Folate deficiency Sleep walking Hypotension Easy bruisability Chronic anticoagulation Bilateral finger numbness Cervical radiculopathy Segmental and somatic dysfunction of rib cage Somatic dysfunction of lower extremity Cervical somatic dysfunction Cranial somatic dysfunction Stiff neck Squamous cell carcinoma, leg Screening for prostate cancer 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 Foot joint stiffness, bilateral Thoracic region somatic dysfunction Central stenosis of spinal canal Lumbar foraminal stenosis Segmental and somatic dysfunction of abdomen and other regions Sacral region somatic dysfunction Pelvic somatic dysfunction Lumbar region somatic dysfunction Atrial fibrillation Fatigue (~11/23/19) Cognitive decline Obstructive sleep apnea of adult Low back pain Concussion Fall (on) (from) other stairs and steps, sequela Dizziness Heart disease Surgical History History of right hip replacement Hx of Achilles tendon repair Hx of umbilical hernia repair Family History Father Blood disease Diabetes mellitus Eczema Hearing impairment Mother Melanoma Social History marital status: details: to Елена household members: none lives independently: Yes caregiver/support person: No education level: college occupational status: previously employed (now retired) 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 Weakness and septic encephalopathy. Present on admission and improving. -Covid, possible UTI. Urine cx with very early growth. -Continue antibiotic for possible underlying UTI. -Does not appear to be in acute neurologic event but more of superimposed ongoing cognitive. -Treatment is supportive and antibiotics 2. COVID infection without respiratory symptoms or hypoxemia. Present on admission and active. - Patient saturating fairly well in the minute. Supportive care for now, monitor for fever or hypoxemia. 3. Cognitive decline with dementia, present on admission and active. -Continue the home memantine and Seroquel 4. Hypertension, present on admission and active. - Per resume the home metoprolol 5. Urinary tract infection. Present on admission and active. - Pending cultures initiate Keflex QID. Had a level care discussion with the family. He is DNR, DNI. They would like antibiotics for now. The patient appears to be improving to some degree. He will likely return back to his memory unit, [facility] in a couple of days. I did broach the subject of hospice for progressive dementia stating that this is not necessarily an acute decision so much as a possibility moving forward. DVT prophylaxis: Lovenox. Time Spent With Patient Time with patient: 30 to 49 minutes with 50% spent counseling/coordinating care
[2023-07-04] MEDS: CHOLECALCIFEROL (VITAMIN D3) 1,000 UNIT TABLET 1000 UNIT PO (08:55)
[2023-07-04] MEDS: LACTOBACILLUS ACIDOPHILUS TABLET 1 EACH PO ×2 (08:55→16:57)
[2023-07-04] MEDS: RIVAROXABAN 10 MG TABLET 20 MG PO (08:55)
[2023-07-04] MEDS: MEMANTINE HCL 5 MG TABLET PO (08:55)
[2023-07-04] MEDS: FISH OIL 1,000 MG CAPSULE 1000 MG PO ×2 (08:55→21:05)
[2023-07-04] MEDS: MAGNESIUM OXIDE 400 MG TABLET PO (08:55)
[2023-07-04 09:30] VITALS: BP 130/66; PULSE 85; RESP 18; TEMP 37.2; O2SAT 96
[2023-07-04 09:46] LABS: Hematocrit 41.3 % (41-53); Mean Corpuscular HGB Conc 33.8 % (30-36); Mean Corpuscular Hemoglobin 32.7 PG (26-34); Mean Corpuscular Volume 96.6 fL (80-100); Platelet Count 174 X10^3/uL (150-400); Red Blood Cell Count 4.28 X10^6/uL (4.5-5.9); Red Cell Distribution Width 13.1 % (11.6-14.8); White Blood Cell Count 7.7 X10^3/uL (4.5-11.0)
[2023-07-04 09:58] LABS: BUN Creatinine Ratio 15.5 (6-22); Blood Urea Nitrogen 9 mg/dL (9-20); Calcium 8.6 mg/dL (8.4-10.2); Carbon Dioxide 27 mmol/L (22-32); Chloride 99 mmol/L (98-107); Estimated Glomerular Filt Rate > 60 mL/min (>60); Glucose 120 mg/dL (80-110); HEMOLYSIS < 15 (0-50); Potassium 3.4 mmol/L (3.4-5.1); Sodium 135 mmol/L (137-145)
--- NOTE | 2023-07-04 10:03 | PC.NURSE ---
Patient is alert but confused x3. He is pleasant and cooperative with care. Patient took his medications crushed in pudding well, and no coughing or choking noted. HOB up 90degrees. He was just repositioned and he was incontinent of a large amount of urine. New brief placed on patient and he was repositioned at 0900. visiting in room and patient also took bites of some hot cereal and tolerated this well.
--- NOTE | 2023-07-04 11:03 | CM.DPC ---
Addendum entered by GARTH Veras 07/04/23 15:00: ADD: SW faxed updated clinicals to [facility] to review and called Coby with update and she confirms that if pt showing signs of improvement and if spouse confirms she feels pt is improving then no need for bedside assessment by RN before he can return. SW updated spouse bedside who was appreciative. BF Original Note: DCP Cont: Per MD, pt making progress but due to his comorbidities likely not stable for d/c yet today but remains on room air and per RN this morning pt was alert and able to eat some food and take his medications. Per ST eval yesterday, recommending a slightly modified diet and would recommend MBSS but unsure if pt would be able to tolerate. Per PT eval yesterday, pt was quite weak and below baseline and required increased assist with bed mobility and standing. PT hopeful pt will continue to make progress today and while admitted. SW spoke to Coby at [facility] and updated on pt status and she confirms they have a private room for pt ready and available for his return as currently pt's roommate is not testing COVID+. SW met with spouse and updated on above and discussed currently Coby is not stating bedside assessment needed prior to return to their facility but will attempt to get clarification later today once updated notes available to send Coby to review. Spouse confirms that her current preference, and only preference, is for pt to return to [facility]. Plan: SW to follow closely for faxing updated clinicals to Coby at [facility] towards confirming if bedside assessment needed for pt's return at d/c. GARTH Veras
--- NOTE | 2023-07-04 13:01 | PT.IPTN ---
Physical Therapy Treatment Note M2 PT-IP Current Condition Start: 07/03/23 15:40 Freq: NEEDED Status: Active Protocol: Document 07/03/23 14:45 AB (Rec: 07/03/23 16:01 AB [id number]) Physical Therapy Current Condition Current Condition Evaluation Date 07/03/23 Treatment Diagnosis UTI; Covid; AMS; difficutly in walking Onset Date 07/02/23 M3 PT-IP Subjective Start: 07/03/23 15:40 Freq: NEEDED Status: Active Protocol: Document 07/04/23 12:27 MB (Rec: 07/04/23 13:01 MB [id number]) Subjective Physical Therapy Visit Type Type Treatment Note Visit Start Time 12:27 Visit Stop Time 12:51 Number of TRIMMER TAILER Visits 0 Physical Therapy Visit Comments Patient Comments Pt is essentially non-verbal. M4 PT-IP Mobility and Gait Start: 07/03/23 15:40 Freq: NEEDED Status: Active Protocol: Document 07/04/23 12:27 MB (Rec: 07/04/23 13:01 MB [id number]) PT-Bed Mobility Assessment Supine to Sit Supine to Sit Maximum Assistance,2 Person Assistance,Head of Bed Elevated,Bedrails Sit to Supine Sit to Supine Total Assistance,2 Person Assistance Scooting Scooting to Edge of Bed Dependent Scooting Up and Down in Bed Dependent PT-Transfer Assessment Sit to and From Stand Sit to and from Stand Maximum Assistance,2 Person Assistance,Use of Upper Extremities Equipment Transfer Assistive Device Gait Belt,Front Wheeled Walker Orthotic/Prosthetic Devices or Brace: No Comments Mobility Comments is nearby and wanting to know if therapist thinks pt is doing better today. Pt is sleeping upon arrival and is essentially non-verbal. He follows 10% or less of functional commands with commands being 1-step, repeated and simple, Burt, let's sit up, etc. Pt requires mod to max A to maintain static sitting balance and dependent assistance to scoot hips out to EOB. Pt requires +2 max A for STS to RW. He cannot maintain standing balance well , has posterior lean and does not follow commands to stand up taller. He sits back to bed . Bleeding from left wrist IV site and nsg called in. Gait Assessment Comments Gait Comments Unable to gait with PT this date PT-Balance Assessment Sitting Balance and Reactions Static Sitting Balance Ability Poor Dynamic Sitting Balance Ability Poor Standing Balance and Reactions Static Standing Balance Ability Poor Dynamic Standing Balance Ability Poor Device Used RW M5 PT-IP Objective Assessments Start: 07/03/23 15:40 Freq: NEEDED Status: Active Protocol: Document 07/03/23 14:45 AB (Rec: 07/03/23 16:01 AB [id number]) Orientation Orientation/Cognition Level of Alertness Confusional State Safety Awareness Decreased Safety Awareness Memory Description Short Term Impaired,Fdc Impaired Gross Range of Motion Lower Extremity ROM Assessment Within Functional Limits Strength Lower Extremity Strength Assessment Within Functional Limits Muscle Tone Muscle Tone WNL Yes M6 PT-IP Treatment Start: 07/03/23 15:40 Freq: NEEDED Status: Active Protocol: Document 07/03/23 14:45 AB (Rec: 07/03/23 16:01 AB [id number]) Physical Therapy Treatment Education Education Provided Safety M7 PT-IP Assessment and Plan Start: 07/03/23 15:40 Freq: NEEDED Status: Active Protocol: Document 07/04/23 12:27 MB (Rec: 07/04/23 13:01 MB [id number]) PT Summary Assessment and Plan Potential Rehabilitation Potential Poor Status of Condition at Evaluation Evolving Summary Impairments Balance,Coordination,Sensation ,Cognition,Bed Mobility, Transfers,Gait,Activity Tolerance Assessment Summary Burt is unable to make any progress with PT today. He con 't with acute confusion in setting of chronic memory issues. is nearby for treatment. He follows less than 10% of simple 1-step functional commands. He cannot follow commands to stand better upright with RW and requires +2 max A d/t posterior lean. Returned to bed. Pt constantly fidgeting with left wrist IV line and there is some bleeding from the area and nsg staff called in. Goals Bed Mobility Goal Moderate Assistance Transfer Goal Moderate Assistance,Front Wheeled Walker Gait Goal Moderate Assistance,Front Wheel Walker Gait Distance 25 Other Goals improve bed mobility, transfers and ambulation using FWW/SPC 200 ft SBA Days to Meet Goals 10 Frequency of Treatment Frequency Of Treatment Once a Day Treatment Plan Physical Therapy Treatment Plan Bed Mobility Training,Transfer Training,Gait Training, Therapeutic Exercise,Balance Retraining,Discharge Planning, Hot or Cold Pack,Neuromuscular Re-ed,Coordination Retraining ,Manual Therapy Precautions Other Precautions Covid; falls Recommendations To Nursing Amount of Assist Needed Mechanical Lift Discharge Recommendations PT Discharge Recommendations Home with 24/7 Assist Available,Home Health,SNF Rehab,Home vs SNF Transportation Needs at Discharge Wheelchair/Cabulance,Stretcher /Ambulance
[2023-07-04 15:27] VITALS: BP 122/87; PULSE 97; RESP 18; TEMP 37.2; O2SAT 96
[2023-07-04 20:55] VITALS: BP 136/72; PULSE 101; RESP 16; TEMP 37.3; O2SAT 97
[2023-07-04] MEDS: cefTRIAXone 1,000 MG in SODIUM CHLORIDE 0.9% 100 ML 200 MG IV (21:05)
[2023-07-04] MEDS: METOPROLOL ER 25 MG TABLET PO (21:06)
[2023-07-05] MEDS: SODIUM CHLORIDE 0.9% 1,000 ML 100 ML IV ×3 (00:40→20:37)
[2023-07-05 04:36] VITALS: BP 131/69; PULSE 101; RESP 16; TEMP 37.6; O2SAT 95
[2023-07-05 04:43] LABS: Hematocrit 40.8 % (41-53); Hemoglobin 13.8 g/dL (13.5-17.5); Mean Corpuscular HGB Conc 33.9 % (30-36); Mean Corpuscular Hemoglobin 32.9 PG (26-34); Platelet Count 170 X10^3/uL (150-400); Red Blood Cell Count 4.21 X10^6/uL (4.5-5.9); Red Cell Distribution Width 12.8 % (11.6-14.8); White Blood Cell Count 8.2 X10^3/uL (4.5-11.0)
[2023-07-05 05:01] LABS: BUN Creatinine Ratio 13.4 (6-22); Blood Urea Nitrogen 9 mg/dL (9-20); Calcium 8.5 mg/dL (8.4-10.2); Carbon Dioxide 28 mmol/L (22-32); Chloride 99 mmol/L (98-107); Estimated Glomerular Filt Rate > 60 mL/min (>60); Glucose 113 mg/dL (80-110); HEMOLYSIS < 15 (0-50); Potassium 3.5 mmol/L (3.4-5.1); Sodium 134 mmol/L (137-145)
[2023-07-05] MEDS: FISH OIL 1,000 MG CAPSULE 1000 MG PO ×2 (10:51→20:06)
[2023-07-05] MEDS: MAGNESIUM OXIDE 400 MG TABLET PO (10:51)
[2023-07-05] MEDS: POTASSIUM CHLORIDE 20 MEQ TAB 40 MEQ PO (10:51)
[2023-07-05] MEDS: CHOLECALCIFEROL (VITAMIN D3) 1,000 UNIT TABLET 1000 UNIT PO (10:51)
[2023-07-05] MEDS: RIVAROXABAN 10 MG TABLET 20 MG PO (10:51)
[2023-07-05] MEDS: MEMANTINE HCL 5 MG TABLET PO (11:00)
[2023-07-05] MEDS: LACTOBACILLUS ACIDOPHILUS TABLET 1 EACH PO ×2 (11:00→17:34)
--- NOTE | 2023-07-05 11:15 | PT.IPTN ---
Current Diagnoses COVID-19 (07/04/23) Physical Therapy Treatment Note M2 PT-IP Current Condition Start: 07/03/23 15:40 Freq: NEEDED Status: Active Protocol: Document 07/03/23 14:45 AB (Rec: 07/03/23 16:01 AB [id number]) Physical Therapy Current Condition Current Condition Evaluation Date 07/03/23 Treatment Diagnosis UTI; Covid; AMS; difficutly in walking Onset Date 07/02/23 M3 PT-IP Subjective Start: 07/03/23 15:40 Freq: NEEDED Status: Active Protocol: Document 07/05/23 12:08 [facility] (Rec: 07/05/23 12:13 [facility] [id number]) Subjective Physical Therapy Visit Type Type Treatment Note Visit Start Time 10:45 Visit Stop Time 11:11 Number of SURGICAL GARMENT ASSEMBLY SUPERVISOR Visits 0 Physical Therapy Visit Comments Patient Comments present and notes pt is doing better than he was the past couple days Therapy Pain Assessment Pain When Pain Assessed During Mobility Pain Present Pain Present Pain Reported M4 PT-IP Mobility and Gait Start: 07/03/23 15:40 Freq: NEEDED Status: Active Protocol: Document 07/05/23 12:08 [facility] (Rec: 07/05/23 12:13 [facility] [id number]) PT-Bed Mobility Assessment Rolling Type of Rolling Bilateral Level of Assist Maximal Assistance,2 Person Assistance Supine to Sit Supine to Sit Moderate Assistance,2 Person Assistance,Head of Bed Elevated,Bedrails Scooting Scooting to Edge of Bed Contact Guard Assistance PT-Transfer Assessment Sit to and From Stand Sit to and from Stand Moderate Assistance,2 Person Assistance,Use of Upper Extremities Equipment Transfer Assistive Device Gait Belt,Front Wheeled Walker Orthotic/Prosthetic Devices or Brace: No Transfers Transfer Destination Chair Transfer Technique Stand Step Pivot Transfer Ability Level of Assist Moderate Assistance,2 Person Assistance,Use of Upper Extremities Comments Mobility Comments Pt rolled side to side in bed to change brief w/BUTTERMAKER CONTINUOUS CHURN while BUTTERMAKER CONTINUOUS CHURN cleaned him up. Pt then did supine to sit w/mod A x2 and then sit to stand Mod Ax2 w/max cues. He required max cues throughout and one step commands. He transfered w/mod A x2 w/FWW and left with call light in reach and chiar alarm on w/ in room. M5 PT-IP Objective Assessments Start: 07/03/23 15:40 Freq: NEEDED Status: Active Protocol: Document 07/03/23 14:45 AB (Rec: 07/03/23 16:01 AB [id number]) Orientation Orientation/Cognition Level of Alertness Confusional State Safety Awareness Decreased Safety Awareness Memory Description Short Term Impaired,[facility] Impaired Gross Range of Motion Lower Extremity ROM Assessment Within Functional Limits Strength Lower Extremity Strength Assessment Within Functional Limits Muscle Tone Muscle Tone WNL Yes M6 PT-IP Treatment Start: 07/03/23 15:40 Freq: NEEDED Status: Active Protocol: Document 07/03/23 14:45 AB (Rec: 07/03/23 16:01 AB [id number]) Physical Therapy Treatment Education Education Provided Safety M7 PT-IP Assessment and Plan Start: 07/03/23 15:40 Freq: NEEDED Status: Active Protocol: Document 07/05/23 12:08 [facility] (Rec: 07/05/23 12:13 [facility] [id number]) PT Summary Assessment and Plan Summary Progress Towards Goals Progressing Toward Goals Assessment Summary Pt had improved mobility, but still required a 2nd person w/ mobility d/t safety and pt having difficulty w/following commands. He occ needs one person to help move an extremity or tap an extremity while the others helps keep him up. He will need 2PA upon return to [facility] and would benefit from PT upon return to help w/his mobility. Goals Bed Mobility Goal Moderate Assistance Transfer Goal Moderate Assistance,Front Wheeled Walker Gait Goal Moderate Assistance,Front Wheel Walker Gait Distance 25 Other Goals improve bed mobility, transfers and ambulation using FWW/SPC 200 ft SBA Days to Meet Goals 10 Frequency of Treatment Frequency Of Treatment Once a Day Treatment Plan Physical Therapy Treatment Plan Bed Mobility Training,Transfer Training,Gait Training, Therapeutic Exercise,Balance Retraining,Discharge Planning, Hot or Cold Pack,Neuromuscular Re-ed,Coordination Retraining ,Manual Therapy Precautions Other Precautions Covid; falls Recommendations To Nursing Amount of Assist Needed 2 Person Assist Discharge Recommendations PT Discharge Recommendations Home with 30/11 Assist Available,Home Health Other Discharge Recommendations return to [facility] w/2PA and PT Transportation Needs at Discharge Wheelchair/Cabulance
[2023-07-05 14:00] VITALS: BP 109/76; PULSE 95; RESP 18; O2SAT 97
--- NOTE | 2023-07-05 14:27 | OT.IP.EVAL ---
Current Diagnoses COVID-19 (07/04/23) Past Medical History (Last Reviewed 07/03/23 @ 07:47 by Nithin Rodriguez MD) Asymptomatic microscopic hematuria Atrial fibrillation Benign prostatic hyperplasia Bilateral finger numbness Central stenosis of spinal canal Cervical radiculopathy Cervical somatic dysfunction Chronic anticoagulation Chronic hip pain after total replacement of right hip joint Cognitive decline Concussion Cranial somatic dysfunction Dizziness Easy bruisability Fall (on) (from) other stairs and steps, sequela Fatigue (~11/23/19) Folate deficiency Foot joint stiffness, bilateral Greater trochanteric bursitis of right hip Heart disease Hypotension Low back pain 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 Lower urinary tract symptoms Lumbar foraminal stenosis Lumbar region somatic dysfunction Obstructive sleep apnea of adult Pelvic somatic dysfunction Sacral region somatic dysfunction Screening for prostate cancer Segmental and somatic dysfunction of abdomen and other regions Segmental and somatic dysfunction of rib cage Senile dementia Sleep walking Somatic dysfunction of lower extremity Squamous cell carcinoma, leg Stiff neck Thoracic region somatic dysfunction Surgical History (Last Reviewed 07/03/23 @ 07:47 by Nithin Rodriguez MD) History of right hip replacement Hx of Achilles tendon repair Hx of umbilical hernia repair Occupational Therapy Inpatient Evaluation/Re-Eval M1 PT/OT-IP Prior Functional Status Start: 07/03/23 15:40 Freq: NEEDED Status: Active Protocol: Document 07/05/23 14:31 [facility] (Rec: 07/05/23 14:47 [facility] [id number]) Medical Review Prior Functional Status Medical History Reviewed Yes Communication pt is unable to answer questions and is not consistent with following directions. Mobility and Gait spouse provided pt's PLOF: stated that pt lives at [facility] and is SBA with bed mobility, transfers and ambulation using mostly a SPC but uses a FWW at night Activities of Daily Living and IADL's Pt is dep for all care but was able to feed himself. Social History Household Members none Living Arrangements Skilled Nurse Facility Number of Stairs To Enter/Railing? pt lives at [facility] Home Environment Standard Height Toilet,Walk in Shower Home Equipment Front Wheel Walker,Straight Cane,Hand Held Shower,Grab Bars Near Toilet,Grab Bars In Shower Employment Status Retired M2 OT-IP Current Condition Start: 07/05/23 14:31 Freq: Status: Active Protocol: Document 07/05/23 14:31 [facility] (Rec: 07/05/23 14:47 C[facility] [id number]) Occupational Therapy Current Condition Current Condition Evaluation Date 07/05/23 Treatment Diagnosis UTI/covid Diagnosis Onset Date 07/04/23 M3 OT- IP Subjective and Pain Start: 07/05/23 14:31 Freq: Status: Active Protocol: Document 07/05/23 14:31 [facility] (Rec: 07/05/23 14:47 [facility] [id number]) OT- Subjective Occupational Therapy Visit Type Type Initial Evaluation Visit Start Time 14:14 Visit Stop Time 14:27 Notes Pt's daughter present for assessment. Assessment limited to feeding given pt's PLOF is dep except for feeding. M4 OT- IP ADL's Start: 07/05/23 14:31 Freq: Status: Active Protocol: Document 07/05/23 14:31 [facility] (Rec: 07/05/23 14:47 CGR [id number]) OT [id number] General Evaluation Self-Feeding Ability Total Assistance Areas Needing Assistance Bringing Utensil to Mouth, Loading Utensil Comments OT Self-Feeding Comments Attempted feeding with a built up handle but this appeared to confuse pt. Pt would benefit from built up handle utensils. Nursing stated she called the kitchen to request. Pt was able to get cup to mouth but without accuracy. Pt 's daughter states this is not his baseline for feeding. OT ADL-Grooming Comments OT Grooming Comments not performed, pt dep at baseline OT ADL-Oral Care Comments Oral Care Comments not performed, pt dep at baseline pt's spouce indicated to ST that she would be interested in learning how to assist pt with oral care. OT ADL-Dressing Comments OT Dressing Comments not performed, pt dep at baseline OT ADL-Toileting Comments OT Toileting Comments not performed, pt dep at baseline OT ADL-Bathing Comments OT Bathing Comments not performed, pt dep at baseline M5 OT- IP IADL's Start: 07/05/23 14:31 Freq: Status: Active Protocol: Document 07/05/23 14:31 [facility] (Rec: 07/05/23 14:47 CGR [id number]) OT-Instrumental Activities of Daily Living Deficits IADL Deficits Identified Deficits Home Safety Awareness Awareness of Need for Assistance at Home Decreased Awareness Ability to Problem Solve Emergency Unable to Problem Solve Situations Medication Management Medication Management Caregiver Administers Money Management Money Management Caregiver Provides Assistance Meal Preparation Meal Preparation Caregiver Provides Assist Protozoologist Protozoologist Caregiver Provides Assist Driving Driving Comments Does not occur M6 OT- IP Functional Cognition Start: 07/05/23 14:31 Freq: Status: Active Protocol: Document 07/05/23 14:31 CGR (Rec: 07/05/23 14:47 CGR [id number]) Cognitive Factors Limiting Selfcare Function Cognitive Ability Level of Alertness Alert,Confusional State Patient Orientation Name Attention Span Ability Unable to Focus,Unable to Sustain Attention Cognitive Comments Cognitive Assessment Comments Pt with advanced dementia OT- Vision and Hearing OT- Hearing Assessment OT- Hearing Assessment WFL M7 OT- IP Mobility and Balance Start: 07/05/23 14:31 Freq: Status: Active Protocol: Document 07/05/23 14:31 CGR (Rec: 07/05/23 14:47 CGR [id number]) OT-Transfer Assessment Comments Mobility Comments Defer mobility to P.T. at this time OT- Balance Assessment Sitting Balance and Reactions Static Sitting Balance Ability Fair Dynamic Sitting Balance Ability Fair M8 OT- IP Objective Assessments Start: 07/05/23 14:31 Freq: Status: Active Protocol: Document 07/05/23 14:31 C[facility] (Rec: 07/05/23 14:47 CGR [id number]) OT Strength Comments Strength Comments pt unable to follow commands to perform OT- Coordination Assessment Comments Coordination Comments pt unable to follow commands to perform OT-Muscle Tone Assessment Muscle Tone WNL Yes OT Sensation Assessment Edema Edema Absent M9 OT- IP Assessment and Plan Start: 07/05/23 14:31 Freq: Status: Active Protocol: Document 07/05/23 14:31 CGR (Rec: 07/05/23 14:47 CGR [id number]) OT Summary Assessment and Plan Potential Rehabilitation Potential Fair Analytic Complexity at Evaluation Low Summary OT Impairments Functional Cognition,Self- Feeding Progress Towards Goals Slow Progress due to Cognition Assessment Summary Pt presents as a low complexity evaluation s/p admit for UTI and covid. Pt is dep for all care at baseline except that he is able to feed . Pt now is unable to feed. Recommended built up handles and food services was contacted to request built up handles with meals. Pt's indicated to that she would be interested in learning how to assist with oral care. Will plan to follow up with pt at meal time tomorrow for further treatment. Goals Self-Feeding Goal Independent,Adapted Utensil Days to Meet Goals 3 Frequency of Treatment Frequency Of Treatment Once a Day Treatment Plan OT Treatment Plan ADL Training,Patient/Family Education,Discharge Planning Other Treatment Recommendations and Next Follow up at meal time for Treatment Focus feeding with built up handle. Education to on assisting with oral care. Discharge Recommendations OT Discharge Recommendations Home with 24/7 Assist Available Other Discharge Recommendations return to [facility] Transportation Needs at Discharge Wheelchair/Cabulance
--- NOTE | 2023-07-05 14:38 | ST.IPDYTX ---
Visit Care Team Role Provider Type Mynor Rai DO Family Provider Physician Primary Care Provider Specialty: Family Practice Address: [address] [place] [address], [id number] Email: Lizette Bobby DO Emergency Provider Physician Referring Provider Specialty: Emergency Medicine Address: [address] [place] [address], [id number] Email: [email or web address] MD Admit Provider Physician Attending Provider Specialty: Internal Medicine Address: [address] [place] [address], [phone] Fax: Email: COSMETIC MAKER Dysphagia Treatment COSMETIC MAKER Dysphagia Treatment Start: 07/05/23 12:46 Freq: Status: Active Protocol: Document 07/05/23 12:46 CG (Rec: 07/05/23 12:53 CG [id number]) Dysphagia Treatment Session Time Visit Start Time 11:15 Visit Stop Time 12:15 Total Visit Minutes 60 Visit Information Visit Number 2 Setting Assessment Location Acute Care Patient Information Subjective Observations Pt was in hospital chair ( after working with PT) with pt 's , Елена, present in the room. Елена stayed the entire tx session. Pt was confused and did not respond to most questions or directions by the COSMETIC MAKER, even when reiterated by his . He was alert and cooperative with PO trials. His reported that he his cough had been decreasing since two days ago. Nursing reported that he ate about 85% of his breakfast tray and no difficulties were observed with current diet of puree solids and moderately thick liquids. Treatment Liquids Trialed Ice chips,Thin (IDDSI 0), Moderately Thick (IDDSI 3 Solids Trialed Purred (IDDSI 4),Minced & Moist (IDDSI 5) Administration Type Tea Spoon,Controlled Cup Sip, Dependent Feeding Oral Strategies Upright at 90 degrees Treatment Activities PO trials of ice chips, thin liquids, moderately thick liquids (IDDSI 3), pudding ( IDDSI 4), pudding with cleo crackers (minced and moist solids/IDDSI 5). Provided caregiver education re s/sx aspiration, risk of aspiration , importance of oral care, and use of free water/ice chip protocol. Discussed whether pt appropriate for MBS. Collaborated with nursing re orders for oral care, with physician re progress, with HOTEL MAINTENANCE TECHNICIAN re continuing needs after d/c and carryover of recommendations at discharge location ([facility]). Communicated with OT to recommend OT orders due to reported change in pt's ability to self-feed and pt's needing caregiver education re oral care. The IDDSI Framework Protocol: IDDSI.1 Assessment Patient Response to Treatment Fair Rehab Potential Fair Assessment of Improvement Pt continues to present as confused and minimally verbal, but occasionally verbally responded to COSMETIC MAKER comments. Initially trialed moderately thick liquids (apple juice) which was present at bedside. Pt demonstrated good oral acceptance and containment, but disorganized lingual movements and suspected delayed initiation of pharyngeal swallow. Pt presented with delayed throat clear after all trials moderately thick liquids. Trialed ice chips, which also resulted in throat clear, intermittently delayed, sometimes immediate. Trials of pudding with cleo cracker mixed in (IDSSI 5) were characterized by munch mastication pattern, disorganized bolus formation and AP transport, and throat clear after all trials. Across trials IDDSI 3 ( moderately thick liquids) and IDDSI 5 (minced and moist solids) no coughing was observed. Trials thin liquid (ice water) via teaspoon resulted in throat clear on all 5 trials, and delayed cough on 2 trials. One delayed cough was productive and resulted in clearance of thick mucus. Overall, it is impossible to determine for certain whether the pt is tolerating mod thick liquids without aspirating unless an instrumental assessment is performed. However, the pt is not a candidate for MBS due to his cognitive status (unable to follow multi-step directions). Therefore, tolerance assessment must be based off of overt clinical signs. Based on clinical signs, the pt tolerated moderately thick liquids with reduced overt s/ sx aspiration. Therefore, recommend continue mod thick liquids and continue trials thin to assess for clinical signs of tolerance. Additionally, based on pt's disorganized oral phase, there is still concern that solid foods may fall into the windpipe given pt's overall decreased cognitive status at this time (per , pt is not at baseline). Therefore, recommend continue puree solids pending further PO trials demonstrating safety with harder textures. ST discussed pt's overall functional status with pt's , Елена, who expressed that some of his behaviors, including repetitive fidget- like hand movements, are new. COSMETIC MAKER explained that this is a typical behavior related to dementia, though per 's report it seems to be new since admission. Additionally , discussed pt's inability to grasp spoon to bring boluses ( specifically, pudding) to his mouth. His reports that he was previously self-feeding . COSMETIC MAKER communicated this to OT in regards to assessing/ treating feeding. Additionally, discussed importance of oral care in reducing risks of developing aspiration PNA. COSMETIC MAKER provided pt's with a handout about oral care and its role in dysphagia management. Discussed providing ice chips after oral care for pt comfort as risk of developing aspiration pneumonia from ice chips after oral care is minimal. Discussed the need for ongoing ST. asked whether pt would be able to advance to thin liquids in the near future; COSMETIC MAKER explained that this would depend on tolerance and would likely be at the discretion of a home health COSMETIC MAKER after pt's return to [facility] if not advanced prior to d/c. asked about whether exercises would improve swallow function. COSMETIC MAKER explained that there are swallow exercises available; however, pt would need to be able to follow one-step directions to complete them. Pt's is concerned that there will be limited carryover between COSMETIC MAKER recommendations and pt experience after discharge. Discussed this with HOTEL MAINTENANCE TECHNICIAN who stated COSMETIC MAKER recommendations would be included in documentation sent to [facility] nursing staff. Current COSMETIC MAKER recommendations are as follows: 1. Oral care 3x/day before meals 2. Moderately thick liquids, puree solids one bite at a time 3. Meals only while fully upright 90 degrees 4. Meds crushed in applesauce 5. Continue to monitor for s/ sx aspiration pneumonia ( increase WBC count, wet lung sounds, etc) 6. Pt may have ice chips/small sips of thin WATER directly after oral care for comfort. Discontinue once any other food or liquid has entered the oral cavity. Recommendations Recommendations Continue Current Diet Liquids Order Moderately Thick (IDDSI 3) Diet Order Pureed (IDDSI 4) Medication Recommendations Whole in Carrier,Crushed in Carrier Aspiration Precautions Recommended Precautions Upright at 90 Degrees,Small Bites/Sips Treatment Plan Placement Recommendation after Discharge Logging Superintendent Care Facility Appropriate for Continued Therapy Yes Therapy Recommendations Continue to assess tolerance and determine whether safe to advance diet
--- NOTE | 2023-07-05 14:49 | CM.DPC ---
DCP Cont: Per MD, pt continues to improve and likely stable for d/c back to [facility] Care tomorrow 07/06/23. Per ST/PT, pt improving but recommending PT/OT/ST at discharge and feel HH better than outpt for pt. PARISA called Coby at [facility] and updated and faxed PT/ST note from today and she confirms pt had been working with [facility] just for PT prior to admission. Coby aware pt likely will discharge tomorrow. PARISA confirmed with Desiree at [facility] that pt has been getting PT and completed F2F for new orders to include PT/OT/ST and F2F scanned and orders completed. Plan: PARISA to follow for plan of likely pt discharge back to [facility] tomorrow if stable and to update [facility] on pt date of discharge and updating Coby and dylan signed med list. Pallavi Hendricks MSW
--- NOTE | 2023-07-05 14:51 | PM.PN.1 ---
Subjective Subjective Interval history: He is a 77 year old male with severe dementia. The patient's describes cognitive decline since 2018 but more rapid course over the last year. He is currently in a memory care unit at the [facility]. There has been a recent COVID outbreak. He was brought in for weakness. He was found to have a possible UTI as well as COVID. He was not hypoxic. OT consulted today as patient usually is able to feed himself but no longer. PT evaluations ongoing as well. He remains very weak, though a bit more energetic today. Unable to reliably obtain additional history from patient. Exam Vital Signs (past 8 hours): Oxygen Delivery Method Room Air Oxygen Flow Rate 0 Narrative Exam Narrative: NAD, alert and not oriented. Minimal speech. Lungs normal resp. rate and effort. Extremities are free of edema. Objective Labs 07/05/23 04:00 07/05/23 04:00 Labs: Laboratory Results - last 24 hr 07/05/23 04:00 WBC 8.2 RBC 4.21 L Hgb 13.8 Hct 40.8 L MCV 97.0 MCH 32.9 MCHC 33.9 RDW 12.8 Plt Count 170 Sodium 134 L Potassium 3.5 Chloride 99 Carbon Dioxide 28 BUN 9 Creatinine 0.67 Estimated GFR > 60 BUN/Creatinine Ratio 13.4 Glucose 113 H Calcium 8.5 PFSH Medical History Chronic 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 Benign prostatic hyperplasia Lower urinary tract symptoms Asymptomatic microscopic hematuria Greater trochanteric bursitis of right hip Folate deficiency Sleep walking Hypotension Easy bruisability Chronic anticoagulation Bilateral finger numbness Cervical radiculopathy Segmental and somatic dysfunction of rib cage Somatic dysfunction of lower extremity Cervical somatic dysfunction Cranial somatic dysfunction Stiff neck Squamous cell carcinoma, leg Screening for prostate cancer 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 Foot joint stiffness, bilateral Thoracic region somatic dysfunction Central stenosis of spinal canal Lumbar foraminal stenosis Segmental and somatic dysfunction of abdomen and other regions Sacral region somatic dysfunction Pelvic somatic dysfunction Lumbar region somatic dysfunction Atrial fibrillation Fatigue (~11/23/19) Cognitive decline Obstructive sleep apnea of adult Low back pain Concussion Fall (on) (from) other stairs and steps, sequela Dizziness Heart disease Surgical History History of right hip replacement Hx of Achilles tendon repair Hx of umbilical hernia repair Family History Father Blood disease Diabetes mellitus Eczema Hearing impairment Mother Melanoma Social History marital status: details: cintia Christiansen household members: none lives independently: Yes caregiver/support person: No education level: college occupational status: previously employed (now retired) 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 Acute cystitis with acute metabolic encephalopathy, sepsis ruled out. -Covid, acute cystitis. Urine cx with gram positive bacilli, pending cultures. -Continue antibiotic for possible underlying UTI, appears to be improving on ceftriaxone. -Treatment is supportive and antibiotics -SOFA score of 1 on presentation. Sepsis ruled out. 2. COVID infection without respiratory symptoms or hypoxemia. Present on admission and active. - Patient saturating fairly well in the minute. Supportive care for now, monitor for fever or hypoxemia. - was reportedly positive about a month ago per spouse. 3. Cognitive decline with dementia, present on admission and active. -Continue the home memantine and Seroquel 4. Hypertension, present on admission and active. - Per resume the home metoprolol Had a level care discussion with the family. He is DNR, DNI. They would like antibiotics for now. The patient appears to be improving to some degree. He will likely return back to his memory unit, [facility] in a couple of days. I did broach the subject of hospice for progressive dementia stating that this is not necessarily an acute decision so much as a possibility moving forward. DVT prophylaxis: Lovenox. Time Spent With Patient Time with patient: 30 to 49 minutes with 50% spent counseling/coordinating care
--- NOTE | 2023-07-05 14:57 | PC.NURSE ---
Patient up with 2 person assist to the chair, he has been sitting up for a couple of hours now and is tolerating well. Patients daughter is here visiting and will also be back later. Patient has eaten well at both meals today and has not had any coughing or choking episodes today.
[2023-07-05 18:54] VITALS: BP 127/71; PULSE 96; RESP 18; TEMP 36.4; O2SAT 97
[2023-07-05] MEDS: QUETIAPINE 25 MG TABLET PO (19:33)
[2023-07-05] MEDS: DONEPEZIL 5 MG TABLET 10 MG PO (20:05)
[2023-07-05] MEDS: cefTRIAXone 1,000 MG in SODIUM CHLORIDE 0.9% 100 ML 200 MG IV (20:05)
[2023-07-05 20:06] VITALS: BP 127/71; PULSE 96
[2023-07-05] MEDS: METOPROLOL ER 25 MG TABLET PO (20:06)
[2023-07-05 21:56] VITALS: BP 144/119; PULSE 75
[2023-07-06] MEDS: SODIUM CHLORIDE 0.9% 1,000 ML 100 ML IV (03:03)
[2023-07-06 03:50] VITALS: PULSE 80; RESP 16; O2SAT 95
[2023-07-06 05:18] LABS: Mean Corpuscular HGB Conc 34.3 % (30-36); Mean Corpuscular Volume 96.3 fL (80-100); Platelet Count 175 X10^3/uL (150-400); Red Blood Cell Count 3.94 X10^6/uL (4.5-5.9); White Blood Cell Count 7.6 X10^3/uL (4.5-11.0)
[2023-07-06 05:37] LABS: BUN Creatinine Ratio 14.7 (6-22); Blood Urea Nitrogen 10 mg/dL (9-20); Calcium 8.4 mg/dL (8.4-10.2); Carbon Dioxide 28 mmol/L (22-32); Chloride 106 mmol/L (98-107); Estimated Glomerular Filt Rate > 60 mL/min (>60); Glucose 106 mg/dL (80-110); HEMOLYSIS < 15 (0-50); Potassium 3.7 mmol/L (3.4-5.1); Sodium 138 mmol/L (137-145)
[2023-07-06] MEDS: LACTOBACILLUS ACIDOPHILUS TABLET 1 EACH PO ×2 (10:02→17:38)
[2023-07-06] MEDS: CHOLECALCIFEROL (VITAMIN D3) 1,000 UNIT TABLET 1000 UNIT PO (10:02)
[2023-07-06] MEDS: MAGNESIUM OXIDE 400 MG TABLET PO (10:02)
[2023-07-06] MEDS: FISH OIL 1,000 MG CAPSULE 1000 MG PO ×2 (10:02→20:02)
[2023-07-06] MEDS: RIVAROXABAN 10 MG TABLET 20 MG PO (10:02)
[2023-07-06] MEDS: MEMANTINE HCL 5 MG TABLET PO (10:04)
--- NOTE | 2023-07-06 11:10 | PT.IPTN ---
Current Diagnoses COVID-19 (07/04/23) Physical Therapy Treatment Note M2 PT-IP Current Condition Start: 07/03/23 15:40 Freq: NEEDED Status: Active Protocol: Document 07/03/23 14:45 AB (Rec: 07/03/23 16:01 AB [id number]) Physical Therapy Current Condition Current Condition Evaluation Date 07/03/23 Treatment Diagnosis UTI; Covid; AMS; difficutly in walking Onset Date 07/02/23 M3 PT-IP Subjective Start: 07/03/23 15:40 Freq: NEEDED Status: Active Protocol: Document 07/06/23 12:19 TS (Rec: 07/06/23 12:30 TS [id number]) Subjective Physical Therapy Visit Type Type Treatment Note Visit Start Time 11:10 Visit Stop Time 11:40 Number of APPLICATIONS SUPPORT SPECIALIST Visits 1 Physical Therapy Visit Comments Patient Comments present, pt pleasantly confused, is agreeable to PT. M4 PT-IP Mobility and Gait Start: 07/03/23 15:40 Freq: NEEDED Status: Active Protocol: Document 07/06/23 12:19 TS (Rec: 07/06/23 12:30 TS [id number]) PT-Bed Mobility Assessment Supine to Sit Supine to Sit Moderate Assistance,1 Person Assistance,Head of Bed Elevated,Bedrails Scooting Scooting to Edge of Bed Contact Guard Assistance PT-Transfer Assessment Sit to and From Stand Sit to and from Stand Moderate Assistance,1 Person Assistance,Use of Upper Extremities Equipment Transfer Assistive Device Gait Belt,Front Wheeled Walker Orthotic/Prosthetic Devices or Brace: No Comments Mobility Comments Supine to sit HOB elevated 35D ModA for uprighting trunk, pt follwoed single step cue for pushing through elbows to sit upright. He sat EOB SBA with BUE support with use of bedrails. STS x2 with ModA and use of FWW, pt retroleans and requires ModA at times to keep balance. He ambulated in room ~60'ModA for for poor balance and cues for management of FWW. Pt was left sitting in chair, all needs met. Gait Assessment Gait Gait Assistance Required: Moderate Assistance,1 Person Assist Distance (Feet) 60 Assistive Devices Assistive Device Gait Belt,Front Wheeled Walker Orthotic/Prosthetic Devices or Brace: No Gait Deviations General Gait Pattern Decreased Stride Length, Decreased Feet Clearance, Flexed Trunk,Lateral Trunk Lean Factors Limiting Gait Function Factors Limiting Gait Function Decreased Activity Tolerance, Decreased Strength,Difficulty Following Directions, Incoordination,Poor Balance, Poor Safety Awareness PT-Balance Assessment Sitting Balance and Reactions Static Sitting Balance Ability Fair Dynamic Sitting Balance Ability Fair Standing Balance and Reactions Static Standing Balance Ability Poor Dynamic Standing Balance Ability Poor Device Used RW M5 PT-IP Objective Assessments Start: 07/03/23 15:40 Freq: NEEDED Status: Active Protocol: Document 07/03/23 14:45 AB (Rec: 07/03/23 16:01 AB [id number]) Orientation Orientation/Cognition Level of Alertness Confusional State Safety Awareness Decreased Safety Awareness Memory Description Short Term Impaired,Test Specialist Impaired Gross Range of Motion Lower Extremity ROM Assessment Within Functional Limits Strength Lower Extremity Strength Assessment Within Functional Limits Muscle Tone Muscle Tone WNL Yes M6 PT-IP Treatment Start: 07/03/23 15:40 Freq: NEEDED Status: Active Protocol: Document 07/03/23 14:45 AB (Rec: 07/03/23 16:01 AB [id number]) Physical Therapy Treatment Education Education Provided Safety M7 PT-IP Assessment and Plan Start: 07/03/23 15:40 Freq: NEEDED Status: Active Protocol: Document 07/06/23 12:19 TS (Rec: 07/06/23 12:30 TS [id number]) PT Summary Assessment and Plan Potential Rehabilitation Potential Fair Summary Progress Towards Goals Progressing Toward Goals Assessment Summary Burt is making some progress with his mobility. He is ModA for supine to sit up to EOB. He performed STS x2 ModA with FWW. He does retrolean in standing, improves balance slightly when given cues. He progressed his gait to ~60' ModA for poor balance and FWW management. He does follow single step instructions well most of time, does become distracted and requries redirection. PT is recommending pt return home with 30/11 assist and HHPT. Goals Bed Mobility Goal Moderate Assistance Transfer Goal Moderate Assistance,Front Wheeled Walker Gait Goal Moderate Assistance,Front Wheel Walker Gait Distance 25 Other Goals improve bed mobility, transfers and ambulation using FWW/SPC 200 ft SBA Days to Meet Goals 10 Frequency of Treatment Frequency Of Treatment Once a Day Treatment Plan Physical Therapy Treatment Plan Bed Mobility Training,Transfer Training,Gait Training, Therapeutic Exercise,Balance Retraining,Discharge Planning, Hot or Cold Pack,Neuromuscular Re-ed,Coordination Retraining ,Manual Therapy Precautions Other Precautions Covid; falls Recommendations To Nursing Amount of Assist Needed 2 Person Assist Discharge Recommendations PT Discharge Recommendations Home with 30/11 Assist Available,Home Health Transportation Needs at Discharge Wheelchair/Cabulance
[2023-07-06 12:00] VITALS: BP 116/71; PULSE 73; RESP 18; TEMP 36.1; O2SAT 97
--- NOTE | 2023-07-06 12:36 | CM.DPNOTE ---
Addendum entered by GARTH Rizvi 07/06/23 13:40: REVENUE CYCLE ANALYST faxed today's PRICER BAGGER/PN to [facility] Original Note: DCP Note REVENUE CYCLE ANALYST reviewed EMR. Per hospitalist in morning rounds, pt dc either today or tomorrow. REVENUE CYCLE ANALYST spoke with Coby ORTEGA at [facility] multiple times, agreed to take pt back tomorrow with [facility] to follow. Transport arranged for 11am. REVENUE CYCLE ANALYST faxed updated clinicals to [facility] for review. Coby reports preference would be for pt to dc with catheter. REVENUE CYCLE ANALYST spoke with spouse Елена in [facility]. [facility]. Wants [facility]. [facility]greeable to [facility]- stating pt has been much better today. REVENUE CYCLE ANALYST provided spouse with card and copy of IMM in anticipation for dc tomorrow. REVENUE CYCLE ANALYST emailed Desiree at [facility] with the update. Per previous CM notes, f2f and order already sent their way. From speech, barium swallow scheduled for 9:30am tomorrow prior to dc back to [facility]. CM team will fax speech note from today to [facility] when available. Plan: pt to dc tomorrow to [facility] at 11am via facility transport. [facility] to follow for PT/OT/ST. Spouse to be here in morning to review dc paperwork. CM team will continue to follow as needed. GARTH Rizvi
--- NOTE | 2023-07-06 13:28 | PM.PN.1 ---
Subjective Subjective Interval history: He is a 77 year old male with severe dementia. The patient's describes cognitive decline since 2018 but more rapid course over the last year. He is currently in a memory care unit at the [facility]. There has been a recent COVID outbreak. He was brought in for weakness. He was found to have a possible UTI as well as COVID. He was not hypoxic. OT consulted today as patient usually is able to feed himself but no longer. PT evaluations ongoing as well. He remains very weak, though a bit more energetic today, he feels improved. He did slightly better today with therapies, including speech. AGRICULTURAL PURCHASING AGENT would like to perform modified barium swallow tomorrow AM prior to planned returned to [facility]. Exam Vital Signs (past 8 hours): - 07/06/23 12:00 Temperature 97.0 F L Pulse Rate 73 Respiratory Rate 18 Blood Pressure 116/71 Pulse Oximetry 97 Oxygen Flow Rate 0 Oxygen Delivery Method Room Air Oxygen Flow Rate 0 Narrative Exam Narrative: NAD, alert and not oriented. Minimal speech. Lungs normal resp. rate and effort. Extremities are free of edema. Objective Labs 07/06/23 04:50 07/06/23 04:50 Labs: Laboratory Results - last 24 hr 07/06/23 04:50 WBC 7.6 RBC 3.94 L Hgb 13.0 L Hct 38.0 L MCV 96.3 MCH 33.0 MCHC 34.3 RDW 13.0 Plt Count 175 Sodium 138 Potassium 3.7 Chloride 106 Carbon Dioxide 28 BUN 10 Creatinine 0.68 Estimated GFR > 60 BUN/Creatinine Ratio 14.7 Glucose 106 Calcium 8.4 [facility] Medical History Chronic 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 Benign prostatic hyperplasia Lower urinary tract symptoms Asymptomatic microscopic hematuria Greater trochanteric bursitis of right hip Folate deficiency Sleep walking Hypotension Easy bruisability Chronic anticoagulation Bilateral finger numbness Cervical radiculopathy Segmental and somatic dysfunction of rib cage Somatic dysfunction of lower extremity Cervical somatic dysfunction Cranial somatic dysfunction Stiff neck Squamous cell carcinoma, leg Screening for prostate cancer 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 Foot joint stiffness, bilateral Thoracic region somatic dysfunction Central stenosis of spinal canal Lumbar foraminal stenosis Segmental and somatic dysfunction of abdomen and other regions Sacral region somatic dysfunction Pelvic somatic dysfunction Lumbar region somatic dysfunction Atrial fibrillation Fatigue (~11/23/19) Cognitive decline Obstructive sleep apnea of adult Low back pain Concussion Fall (on) (from) other stairs and steps, sequela Dizziness Heart disease Surgical History History of right hip replacement Hx of Achilles tendon repair Hx of umbilical hernia repair Family History Father Blood disease Diabetes mellitus Eczema Hearing impairment Mother Melanoma Social History marital status: details: cintia Christiansen household members: none lives independently: Yes caregiver/support person: No education level: college occupational status: previously employed (now retired) 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 Acute cystitis with acute metabolic encephalopathy, sepsis ruled out. -Covid, acute cystitis. Urine cx with crynebacterium, pending sensitivites. -Continue antibiotic for possible underlying UTI, appears to be improving on ceftriaxone. -Treatment is supportive and antibiotics -SOFA score of 1 on presentation. Sepsis ruled out. -AGRICULTURAL PURCHASING AGENT performing evaluation with MBS to rule out possible aspiration, though patient without respiratory symptoms. 2. COVID infection without respiratory symptoms or hypoxemia. Present on admission and active. - Patient saturating fairly well in the minute. Supportive care for now, monitor for fever or hypoxemia. 3. Cognitive decline with dementia, present on admission and active. -Continue the home memantine and Seroquel 4. Hypertension, present on admission and active. - Per resume the home metoprolol Had a level care discussion with the family. He is DNR, DNI. They would like antibiotics for now. The patient appears to be improving to some degree. He will likely return back to his memory unit, [facility] tomorrow morning after MBS with speech. Discussed with speech therapy and case management today to formulate the above assessment and plan. DVT prophylaxis: Lovenox. Time Spent With Patient Time with patient: 30 to 49 minutes with 50% spent counseling/coordinating care
--- NOTE | 2023-07-06 13:30 | ST.IPDYTX ---
Visit Care Team Role Provider Type Mynor Rai DO Family Provider Physician Primary Care Provider Specialty: Family Practice Address: [address] [place] [address], [id number] Email: Lizette Bobby DO Emergency Provider Physician Referring Provider Specialty: Emergency Medicine Address: [address] [place] [address], [id number] Email: [email or web address] Admit Provider Physician Attending Provider Specialty: Internal Medicine Address: [address] [place] [address], [id number] Fax: Email: ESTATE AND TRUST TAX PRINCIPAL Dysphagia Treatment ESTATE AND TR[employer] PRINCIPAL Dysphagia Treatment Start: 07/05/23 12:46 Freq: Status: Active Protocol: Document 07/06/23 13:06 CG (Rec: 07/06/23 13:30 CG [id number]) Dysphagia Treatment Session Time Visit Start Time 11:50 Visit Stop Time 12:35 Total Visit Minutes 45 Visit Information Visit Number 3 Setting Assessment Location Acute Care Visit Type Note Type Treatment Note Patient Information Subjective Observations Pt upright in hospital chair ( after working with PT) with pt 's , Елена, present in the room. Елена stayed the entire tx session. Pt remains pleasantly confused, but overall his status is much improved from yesterday. He is now able to engage in conversation, ask questions, and sometimes respond appropriately to comments/ questions. He is very pleasant and cooperative. He is able to follow one-step directions most of the time especially given gestural cues . Nursing report indicated that he had had breakfast of puree solids without difficulty (no coughing observed), and has begun feeding himself independently with built-up spoon. Pt was agreeable to PO trials. Treatment Liquids Trialed Thin (IDDSI 0),Mildly Thick ( IDDSI 2),Moderately Thick ( IDDSI 3 Solids Trialed Purred (IDDSI 4) Administration Type Tea Spoon,Controlled Cup Sip Oral Strategies Upright at 90 degrees Treatment Activities PO trials of thin liquids, moderately thick liquids ( IDDSI 3), pudding (IDDSI 4), soft cheddar cheese (IDDSI 6) . Discussed pt progress with pt's , CENTER MGR, and MD. Scheduled MBSS for tomorrow morning at 9:30 for objective swallow evaluation. The IDDSI Framework Protocol: IDDSI.1 Assessment Patient Response to Treatment Good Rehab Potential Fair Assessment of Improvement Pt continues to present as confused, but is much more verbal and interactive today, asking questions and engaging in conversation. Initially trialed moderately thick liquids/IDDSI 3 (apple juice) which was present at bedside. Pt again demonstrated good oral acceptance and containment, but disorganized lingual movements and suspected delayed initiation of pharyngeal swallow. Pt presented with delayed throat clear after 50% of trials moderately thick liquids. Trials of mildly thick liquids (IDDSI 2) were accepted much the same as moderately thick liquids, with disorganized oral phase and intermittent throat clearing after the swallow. Trials thin liquid via tsp, straw, and cup sip all presented similarly, with disorganized oral phase and immediate throat clear on 100% of trials. Pt did cough up some more mucus with a delayed cough on one trial of thin liquids again today. Trials of soft solids/IDDSI 6 (soft cheddar cheese) were characterized by excessive mastication time and munch chewing pattern. A-P transport appeared slowed and disorganized. After the swallow, moderate lingual residue was present with solid pieces of bolus still remaining on the tongue. Pt did not indicate sensation of the oral residue. Trials pudding (IDDSI 4) via teaspoon were characterized by mildly slowed A-P transport, but no lingual residue after the swallow. Mild throat clear was present intermittently on swallows of pudding. Overall, pt's cognitive and mobility status are both much improved. He is feeding himself today, was able to get up and walk with PT, and is following most one-step directions. Plan is for him to d/c back to [facility] tomorrow at 11am. Recommending MBS to objectively determine current swallow function given improvment in cognitive status . MBS scheduled for 9:30 am tomorrow before return to [facility]. Based on no significant difference in clinical presentation with mildly thick versus moderately thick liquids, recommend upgrade to mildly thick liquids to increase hydration and decrease risk of pharyngeal residue, pending MBSS. Based on oral residue following solids, continue to recommend puree at this time pending MBSS. Current ESTATE AND TRUST TAX PRINCIPAL recommendations are as follows: 1. Oral care 3x/day before meals 2. Mildly thick liquids (IDDSI 2), puree solids one bite at a time 3. Meals only while fully upright 90 degrees 4. Meds crushed in applesauce 5. Continue to monitor for s/ sx aspiration pneumonia ( increase WBC count, wet lung sounds, etc) 6. Pt may have ice chips/small sips of thin WATER directly after oral care for comfort. Discontinue once any other food or liquid has entered the oral cavity. Recommendations Recommendations Upgrade Diet Order Liquids Order Mildly Thick (IDDSI 2) Diet Order Pureed (IDDSI 4) Medication Recommendations Whole in Carrier,Crushed in Carrier Aspiration Precautions Recommended Precautions Upright at 90 Degrees,Small Bites/Sips Treatment Plan Placement Recommendation after Discharge Junior Manufacturing Engineer Care Facility Appropriate for Continued Therapy Yes Therapy Recommendations MBSS for objective swallow evaluation
--- NOTE | 2023-07-06 14:22 | OT.IPNOTE ---
Per nursing aid, pt just getting back to bed. Therefore to check on the pt later as time allows. Pt looking to go back to [facility] tomorrow.
[2023-07-06 18:00] VITALS: BP 138/76; PULSE 76; RESP 20; TEMP 36.4; O2SAT 98
[2023-07-06 19:41] VITALS: BP 143/80; PULSE 110; RESP 18; TEMP 37.2; O2SAT 95
[2023-07-06 20:03] VITALS: BP 143/80; PULSE 110
[2023-07-06] MEDS: QUETIAPINE 25 MG TABLET PO (20:03)
[2023-07-06] MEDS: METOPROLOL ER 25 MG TABLET PO (20:03)
[2023-07-06] MEDS: DONEPEZIL 5 MG TABLET 10 MG PO (20:03)
[2023-07-07 05:48] VITALS: BP 130/70; PULSE 80; TEMP 37.1; O2SAT 96
[2023-07-07 08:00] VITALS: BP 120/78; PULSE 66; RESP 16; TEMP 36.4; O2SAT 94
[2023-07-07] MEDS: METOPROLOL IR 25 MG TABLET 12.5 MG PO (10:21)
[2023-07-07] MEDS: ACETAMINOPHEN 325 MG TABLET 650 MG PO (10:22)
[2023-07-07] MEDS: LINEZOLID 600 MG TABLET PO (10:22)
[2023-07-07] MEDS: MAGNESIUM OXIDE 400 MG TABLET PO (10:22)
[2023-07-07] MEDS: LACTOBACILLUS ACIDOPHILUS TABLET 1 EACH PO (10:22)
[2023-07-07] MEDS: RIVAROXABAN 10 MG TABLET 20 MG PO (10:23)
[2023-07-07] MEDS: CHOLECALCIFEROL (VITAMIN D3) 1,000 UNIT TABLET 1000 UNIT PO (10:23)
[2023-07-07] MEDS: MEMANTINE HCL 5 MG TABLET PO (10:23)
--- NOTE | 2023-07-07 11:12 | P.DS_ITS ---
History of Present Illness History of Present Illness Chief complaint: Code Stroke Narrative: 77 years old male with a past medical history of hypertension, dyslipidemia, atrial fibrillation, obstructive sleep apnea, cognitive decline/dementia and other medical issues was brought to the emergency room for progressive weakness with apparent facial droop. Patient is functional but does have memory issues. Most of the history has been obtained from caregiver/medical records. Does not appear to be in acute distress. Denies any chest pain or shortness of breath in the ED, there is no appreciable facial droop noted. Further workup showed WBC scan including the urine analysis. COVID was positive and the drug screen was negative. Electrolytes were fairly unremarkable. Follow-up CT scan of the brain shows no acute process and CT angio of the head and neck showed no significant vascular abnormality. Patient was initiated on IV Rocephin for possible urinary tract infection and admitted for further evaluation Additional history: The patient's describes cognitive decline since 2018 but more rapid course over the last year. He is currently in a memory care unit at the [facility]. There has been a recent COVID outbreak. He was brought in for weakness. He was found to have a possible UTI as well as COVID. He was not hypoxic. The patient has lost the ability to recognize his or less several months in his also having some difficulty with eating. A speech therapist evaluation today indicated that he would need to have a modified diet. The patient is not able to speak and no additional history is obtainable from the patient. Discharge Providers Provider Date of admission: 07/04/23 10:00 Discharge Date: 07/07/23 Primary care physician: Mynor Rai DO Consults: 07/03/23 06:05 Consult to Speech Therapy Evaluate & Treat Comment: Physician Instructions: Evaluate and treat 07/03/23 09:22 Consult to Physical Therapy Evaluate & Treat Comment: Physician Instructions: Evaluate and Treat 07/05/23 12:48 Consult to Occupational Therapy Evaluate & Treat Comment: Physician Instructions: Evaluate and treat 07/05/23 14:13 Consult to Home Health Routine Comment: UTI/COVID+/advanced dementia Reason For Exam: Set up PT/OT/ST for discharge to memory care Discharge provider: Chad Dowling DO Summary Hospital Course Discharge Diagnosis: 1. Acute cystitis with acute metabolic encephalopathy, sepsis ruled out. -Covid, acute cystitis. Urine cx with corynebacterium, sensitive to vanc and linezolid. -Continue antibiotic for possible underlying UTI, appears to be improving on ceftriaxone. -recieved rocephin in the hospital, discharged on 5 days of linezolid to cover corynebacterium -Treatment is supportive and antibiotics -SOFA score of 1 on presentation. Sepsis ruled out. -CASTING WHEEL OPERATOR HELPER performing evaluation with MBS to rule out possible aspiration, though patient without respiratory symptoms. Speech recs are pureed, nectar thick liquids and crushed meds. 2. COVID infection without respiratory symptoms or hypoxemia. Present on admission and active. - Patient saturating fairly well in the minute. Supportive care for now, monitor for fever or hypoxemia. 3. Cognitive decline with dementia, present on admission and active. -Continue the home memantine and Seroquel 4. Hypertension, present on admission and active. - Per resume the home metoprolol 5. Muscle spasms - continue benadryl 12.5mg PRN for cramps - added robaxin PRN for spasms as well Had a level care discussion with the family. He is DNR, DNI. Hospital Course: Admitted from [facility] for AMS and found to have UTI and COVID without symptoms. Placed on rocephin. Urine culture grew corynebacterium so switched to po linezolid. MBS done due to some trouble swalling. Speech diet recs placed. Had muscle cramps in the hospital, mag checked and ok. Placed on robaxin PRN in addition to his benadryl he uses for spasms. Discharged back to [facility]. Exam Vital Signs (past 8 hours): - 07/07/23 05:48 07/07/23 08:00 Temperature 98.8 F 97.5 F L Pulse Rate 80 66 Respiratory Rate 16 Blood Pressure 130/70 120/78 Pulse Oximetry 96 94 Oxygen Flow Rate 0 0 Oxygen Delivery Method Room Air Oxygen Flow Rate 0 Narrative Exam Narrative: NAD, alert and not oriented. Minimal speech. Lungs normal resp. rate and effort. Extremities are free of edema. Objective Labs 07/06/23 04:50 07/06/23 04:50 [facility] Medical History Chronic 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 Benign prostatic hyperplasia Lower urinary tract symptoms Asymptomatic microscopic hematuria Greater trochanteric bursitis of right hip Folate deficiency Sleep walking Hypotension Easy bruisability Chronic anticoagulation Bilateral finger numbness Cervical radiculopathy Segmental and somatic dysfunction of rib cage Somatic dysfunction of lower extremity Cervical somatic dysfunction Cranial somatic dysfunction Stiff neck Squamous cell carcinoma, leg Screening for prostate cancer 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 Foot joint stiffness, bilateral Thoracic region somatic dysfunction Central stenosis of spinal canal Lumbar foraminal stenosis Segmental and somatic dysfunction of abdomen and other regions Sacral region somatic dysfunction Pelvic somatic dysfunction Lumbar region somatic dysfunction Atrial fibrillation Fatigue (~11/23/19) Cognitive decline Obstructive sleep apnea of adult Low back pain Concussion Fall (on) (from) other stairs and steps, sequela Dizziness Heart disease Surgical History History of right hip replacement Hx of Achilles tendon repair Hx of umbilical hernia repair Family History Father Blood disease Diabetes mellitus Eczema Hearing impairment Mother Melanoma Social History marital status: details: cintia Christiansen household members: none lives independently: Yes caregiver/support person: No education level: college occupational status: previously employed (now retired) 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 leisure activities: other (speaks frequently via Zoom with grandkideja, who live in [place]) Smoking Status: Never smoker alcohol intake: current Type(s) of exercise: walking frequency: 1-2 times per week Discharge Plan Discharge Plan Patient Disposition: Assisted Living Other facility: [facility] Discharge orders & Medications Discharge Orders: Discharge (Order); Ordered 07/07/23 Ordered By: Chad Dowling Prescriptions: New linezolid 600 mg Tablet 600 mg PO BID 5 Days Qty: 10 0RF metoprolol tartrate 25 mg Tablet 12.5 mg PO BID Qty: 30 0RF methocarbamol 500 mg tablet 500 mg PO Q8H PRN (Reason: muscle spasms, use if benadryl doesn't work) Qty: 30 0RF Continued Xarelto 20 mg tablet 20 mg PO DAILY Qty: 90 3RF donepezil 10 mg tablet 10 mg PO .in the evening Qty: 90 3RF (DME) Disabled Parking permit See Rx Instructions .Route .MEDSUPPLY Qty: 1 0RF Rx Instructions: As directed cholecalciferol (vitamin D3) 25 mcg (1,000 unit) capsule 50 mcg PO DAILY B-complex with vitamin C Tablet 1 tab PO DAILY vitamin E 400 unit capsule 400 unit PO DAILY magnesium oxide 400 mg magnesium capsule 400 mg PO DAILY Theracurmin 1 cap PO BID glucosamine-chondroitin 1 cap PO TID ascorbic acid-elderberry fruit [Airborne (elderberry)] 1 gummy PO 2XD elderberry fruit [Sambucus Elderberry Original] 1 cap PO BID diphenhydramine HCl [Benadryl Allergy] 25 mg tablet 12.5 mg PO DAILY PRN (Reason: leg cramps) memantine 5 mg tablet 5 mg PO DAILY calcipotriene 0.005 % ointment 1 applic topical DAILY quetiapine [Seroquel] 25 mg Tablet 25 mg PO Q6-8H PRN (Reason: Anxiety) Efudex cream 5 % topical DAILY acetaminophen [Tylenol] 325 mg Tablet 325 mg PO QID PRN (Reason: discomfort or fever) (DME) Resmed Airsense 10 CPAP Qty: 1 Dose Instruction: As directed Patient Comments: Pressure: 8-16 cmH2O DME: NORCO STEPHENIE: 7.25.22 Rx Instructions: As directed trazodone 50 mg tablet 50 mg PO BEDTIME PRN (Reason: Anxiety) Discontinued salmon oil-omega-3 fatty acids 1 cap PO BID metoprolol succinate 25 mg tablet extended release 24 hr 25 mg PO BEDTIME Follow up/Referrals: Mynor Rai, [Primary Care Provider] - 2 Weeks (facility to schedule 2 week follow up ) Visit Report/Discharge Packet Stand Alone Forms: Patient Portal/API, Stroke Signs & Symptoms Discharge Data Primary Care Provider: Mynor Rai
[2023-07-07 12:00] VITALS: BP 106/68; PULSE 71; RESP 16; TEMP 35.8; O2SAT 98
--- NOTE | 2023-07-07 12:35 | DI.RAD.S_ITS ---
PROCEDURE: FL BARIUM SWALLOW W SPEECH INDICATIONS: swallow w/ speech COMPARISON: None. TECHNIQUE: Examination was conducted in conjunction with speech pathology per standard protocol. In the lateral projection, filming was performed of the patient swallowing. AP projection could not be performed because the patient could not stand COMPARISON: None FINDINGS/IMPRESSION: Function: See pathology notes Morphology: No cricopharyngeal bar is identified. No Zenker's diverticulum. No strictures of the partially visualized neck region. Fluoro time: 3.1 minutes. 65 images saved. IMPRESSION: See speech pathology notes for detailed evaluation for aspiration/penetration Dictated by: Chuy Joseph M.D. on 07/07/2023 at 15:32 Approved by: Chuy Joseph M.D. on 07/07/2023 at 15:39
--- NOTE | 2023-07-07 13:15 | PT.IPTN ---
Current Diagnoses COVID-19 (07/04/23) Physical Therapy Treatment Note M2 PT-IP Current Condition Start: 07/03/23 15:40 Freq: NEEDED Status: Active Protocol: Document 07/03/23 14:45 AB (Rec: 07/03/23 16:01 AB [id number]) Physical Therapy Current Condition Current Condition Evaluation Date 07/03/23 Treatment Diagnosis UTI; Covid; AMS; difficutly in walking Onset Date 07/02/23 M3 PT-IP Subjective Start: 07/03/23 15:40 Freq: NEEDED Status: Active Protocol: Document 07/07/23 13:55 TS (Rec: 07/07/23 14:01 TS [id number]) Subjective Physical Therapy Visit Type Type Treatment Note Visit Start Time 13:15 Visit Stop Time 13:40 Number of TUCK POINTER HELPER Visits 2 Physical Therapy Visit Comments Patient Comments Pt found resting in bed, is agreeable to PT, would like to use toilet. M4 PT-IP Mobility and Gait Start: 07/03/23 15:40 Freq: NEEDED Status: Active Protocol: Document 07/07/23 13:55 TS (Rec: 07/07/23 14:01 TS [id number]) PT-Bed Mobility Assessment Supine to Sit Supine to Sit Moderate Assistance,1 Person Assistance,Head of Bed Elevated,Bedrails Scooting Scooting to Edge of Bed Contact Guard Assistance PT-Transfer Assessment Sit to and From Stand Sit to and from Stand Moderate Assistance,1 Person Assistance,Use of Upper Extremities Equipment Transfer Assistive Device Gait Belt,Front Wheeled Walker Orthotic/Prosthetic Devices or Brace: No Comments Mobility Comments Supine to sit HOB elevated ModA for uprighting trunk with HIGHWAY WORKER and max cues for sequencing. STS from bed with FWW ModA for posterior lean, pt braces back of LE's against bed to maintain balance. He ambulated to toilet and back to bed ModA with cues for FWW management and for safety. Pt tends to let go of FWW and has difficulty following directions. Pt had small BM and returned to sitting back EOB. pt was left with OT and spouse in room. Gait Assessment Gait Gait Assistance Required: Moderate Assistance,1 Person Assist Distance (Feet) 20 Assistive Devices Assistive Device Gait Belt,Front Wheeled Walker Orthotic/Prosthetic Devices or Brace: No Gait Deviations General Gait Pattern Decreased Stride Length, Decreased Feet Clearance, Flexed Trunk,Lateral Trunk Lean Factors Limiting Gait Function Factors Limiting Gait Function Decreased Activity Tolerance, Decreased Strength,Difficulty Following Directions, Incoordination,Poor Balance, Poor Safety Awareness Comments Gait Comments See mobility comments PT-Balance Assessment Sitting Balance and Reactions Static Sitting Balance Ability Fair Dynamic Sitting Balance Ability Fair Standing Balance and Reactions Static Standing Balance Ability Poor Dynamic Standing Balance Ability Poor Device Used RW M5 PT-IP Objective Assessments Start: 07/03/23 15:40 Freq: NEEDED Status: Active Protocol: Document 07/03/23 14:45 AB (Rec: 07/03/23 16:01 AB [id number]) Orientation Orientation/Cognition Level of Alertness [place] Safety Awareness Decreased Safety Awareness Memory Description Short Term Impaired,Chcf Impaired Gross Range of Motion Lower Extremity ROM Assessment Within Functional Limits Strength Lower Extremity Strength Assessment Within Functional Limits Muscle Tone Muscle Tone WNL Yes M6 PT-IP Treatment Start: 07/03/23 15:40 Freq: NEEDED Status: Active Protocol: Document 07/03/23 14:45 AB (Rec: 07/03/23 16:01 AB [id number]) Physical Therapy Treatment Education Education Provided Safety M7 PT-IP Assessment and Plan Start: 07/03/23 15:40 Freq: NEEDED Status: Active Protocol: Document 07/07/23 13:55 TS (Rec: 07/07/23 14:01 TS [id number]) PT Summary Assessment and Plan Potential Rehabilitation Potential Fair Summary Progress Towards Goals Progressing Toward Goals Assessment Summary Burt is making some progress with his mobility this session . He continues to be ModA to stand with FWW due to posterior lean and poor standing balance. He ambulated in room ~15' with ModA and max cues for safety and FWW management. He had increased difficulty for following directions this session. PT is recommending pt return home with assist and HHPT. Goals Bed Mobility Goal Moderate Assistance Transfer Goal Moderate Assistance,Front Wheeled Walker Gait Goal Moderate Assistance,Front Wheel Walker Gait Distance 25 Other Goals improve bed mobility, transfers and ambulation using FWW/SPC 200 ft SBA Days to Meet Goals 10 Frequency of Treatment Frequency Of Treatment Once a Day Treatment Plan Physical Therapy Treatment Plan Bed Mobility Training,Transfer Training,Gait Training, Therapeutic Exercise,Balance Retraining,Discharge Planning, Hot or Cold Pack,Neuromuscular Re-ed,Coordination Retraining ,Manual Therapy Precautions Other Precautions Covid; falls Recommendations To Nursing Amount of Assist Needed 2 Person Assist Discharge Recommendations PT Discharge Recommendations Home with / Assist Available,Home Health Transportation Needs at Discharge Wheelchair/Cabulance
--- NOTE | 2023-07-07 13:47 | OT.IP.TRT ---
Current Diagnoses COVID-19 (07/04/23) Occupational Therapy Treatment Note M2 OT-IP Current Condition Start: 07/05/23 14:31 Freq: Status: Active Protocol: Document 07/05/23 14:31 CGR (Rec: 07/05/23 14:47 CGR [id number]) Occupational Therapy Current Condition Current Condition Evaluation Date 07/05/23 Treatment Diagnosis UTI/covid Diagnosis Onset Date 07/04/23 M3 OT- IP Subjective and Pain Start: 07/05/23 14:31 Freq: Status: Active Protocol: Document 07/07/23 14:04 CCC (Rec: 07/07/23 14:12 CCC [id number]) OT- Subjective Occupational Therapy Visit Type Type Treatment Note Visit Start Time 13:15 Visit Stop Time 13:42 Occupational Therapy Visit Comments Patient Comments Pt agreed to get up and then wanting to use the bathroom. Patient/Caregiver Goals TO go home. OT Pain Assessment Pain When Pain Assessed At Rest Pain Present Pain Present Denied Pain M4 OT- IP ADL's Start: 07/05/23 14:31 Freq: Status: Active Protocol: Document 07/07/23 14:04 [facility] (Rec: 07/07/23 14:12 CCC [id number]) OT ADL-Grooming Comments OT Grooming Comments Pt able to wash his face after set-up of wash cloth. OT ADL-Oral Care General Eval Oral Care Ability Standby Assistance Comments Oral Care Comments Pt after set-up of toothpaste on the toothbrush and then able to brush his teeth with cues. Pt able spit out the toothpaste and also able to spit out the thickened water when rinsing his mouth out. OT ADL-Dressing General Eval Lower Body Dressing Ability Maximum Assistance Areas Needing Assistance Underpants/Brief Comments OT Dressing Comments MAXA for brief management needs. OT ADL-Toileting General Evaluation Toileting Ability Maximum Assistance Areas Needing Assistance Manage Clothing,Perform Perineal Hygiene Comments OT Toileting Comments MAXA for all needs. OT ADL-Bathing Comments OT Bathing Comments Pt able use wash cloth to wipe his face and arms after cues given. M5 OT- IP IADL's Start: 07/05/23 14:31 Freq: Status: Active Protocol: Document 07/05/23 14:31 CGR (Rec: 07/05/23 14:47 CGR [id number]) OT-Instrumental Activities of Daily Living Deficits IADL Deficits Identified Deficits Home Safety Awareness Awareness of Need for Assistance at Home Decreased Awareness Ability to Problem Solve Emergency Unable to Problem Solve Situations Medication Management Medication Management Caregiver Administers Money Management Money Management Caregiver Provides Assistance Meal Preparation Meal Preparation Caregiver Provides Assist Residential Therapist Residential Therapist Caregiver Provides Assist Driving Driving Comments Does not occur M6 OT- IP Functional Cognition Start: 07/05/23 14:31 Freq: Status: Active Protocol: Document 07/07/23 14:04 [facility] (Rec: 07/07/23 14:12 [facility] [id number]) Cognitive Factors Limiting Selfcare Function Cognitive Comments Cognitive Assessment Comments Pt needing step by step commands along with tactile cues for ADl needs. M7 OT- IP Mobility and Balance Start: 07/05/23 14:31 Freq: Status: Active Protocol: Document 07/07/23 14:04 [facility] (Rec: 07/07/23 14:12 [facility] [id number]) OT-Transfer Assessment Sit to and From Stand Sit to and from Stand Moderate Assistance Transfers Transfer Ability Minimal Assistance,Moderate Assistance Technique Transfer Destination Bed,Chair,Toilet Transfer Technique Stand Step Pivot Devices Transfer Assistive Devices Gait Belt,Front Wheeled Walker Comments Mobility Comments MODA to stand to FWW and assist for balance and to help guide the FWW. Pt tends to push the FWW away at times and wanting to use the grab bars in the bathroom. OT- Balance Assessment Sitting Balance and Reactions Static Sitting Balance Ability Good Dynamic Sitting Balance Ability Fair Standing Balance and Reactions Static Standing Balance Ability Fair Dynamic Standing Balance Ability Poor M8 OT- IP Objective Assessments Start: 07/05/23 14:31 Freq: Status: Active Protocol: Document 07/05/23 14:31 CGR (Rec: 07/05/23 14:47 CGR [id number]) OT Strength Comments Strength Comments pt unable to follow commands to perform OT- Coordination Assessment Comments Coordination Comments pt unable to follow commands to perform OT-Muscle Tone Assessment Muscle Tone WNL Yes OT Sensation Assessment Edema Edema Absent M9 OT- IP Assessment and Plan Start: 07/05/23 14:31 Freq: Status: Active Protocol: Document 07/07/23 14:04 [facility] (Rec: 07/07/23 14:12 [facility] [id number]) OT Summary Assessment and Plan Potential Rehabilitation Potential Fair Analytic Complexity at Evaluation Low Summary OT Impairments Functional Cognition,Self- Feeding Progress Towards Goals Progressing Toward Goals Assessment Summary Pt able to participate in oral care, grooming, toileting, and sponging off today. Pt looking to go back to the [facility] today. Goals Self-Feeding Goal Standby Assistance Grooming Goal Standby Assistance OT-Other Goals Use of regular utensils. Days to Meet Goals 2 Frequency of Treatment Frequency Of Treatment Once a Day Treatment Plan OT Treatment Plan ADL Training,Patient/Family Education,Discharge Planning Discharge Recommendations OT Discharge Recommendations Home with 30/11 Assist Available Other Discharge Recommendations return to [facility] Transportation Needs at Discharge Wheelchair/Cabulance
--- NOTE | 2023-07-07 13:57 | CM.DPNOTE ---
DCP Note PRODUCTION LINE OPERATOR reviewed EMR. Per provider, cleared to dc to [facility] today with [facility] to follow. PRODUCTION LINE OPERATOR coordinated often with Coby/Heather/Susan at [facility] throughout the day. Arranged for transport at 2pm back to facility. PRODUCTION LINE OPERATOR faxed signed med list and placed med list in chart for dc paperwork. PRODUCTION LINE OPERATOR updated RN. PRODUCTION LINE OPERATOR gave RN RN report number. PRODUCTION LINE OPERATOR met with spouse outside of room. PRODUCTION LINE OPERATOR had lengthy conversation with spouse and answered questions to best of ability. Spouse in agreement with plan. Spouse brought up interest in potential hospice involvement. Spouse in agreement to add PRODUCTION LINE OPERATOR to HH order to continue exterminator helper termite planning conversation. PRODUCTION LINE OPERATOR updated Desiree at [facility]. Agreed to add PRODUCTION LINE OPERATOR to order. no new F2f needed. Plan: pt to dc to [facility] today at 2pm via facility transport. [facility] to follow for PT/OT/Speech/PRODUCTION LINE OPERATOR. CM team will continue to follow as needed. GARTH Rizvi
--- NOTE | 2023-07-07 14:06 | ST.SWALLOW ---
Visit Care Team Role Provider Type Mynor Rai DO Family Provider Physician Primary Care Provider Specialty: Family Practice Address: [address] [place] [address], [id number] Email: Lizette Bobby DO Emergency Provider Physician Referring Provider Specialty: Emergency Medicine Address: [address] [place] [address] Email: [email or web address] Win [email or web address] MD Admit Provider Physician Attending Provider Specialty: Internal Medicine Address: [address] [place] [address] Fax: Email: Modified Barium Swallow Study VAT PACKER Modified Barium Swallow Study Start: 07/07/23 10:58 Freq: Status: Active Protocol: Document 07/07/23 10:58 CG (Rec: 07/07/23 10:58 CG [id number]) Modified Barium Swallow Study Total Time Visit Start Time 11:50 Visit Stop Time 12:35 Total Visit Minutes 45 Patient Information Patient History Per H&P: Pt is a 77 year old male with a past medical history of hypertension, dyslipidemia, atrial fibrillation, obstructive sleep apnea, cognitive decline /dementia and other medical issues was brought to the emergency room for progressive weakness with apparent facial droop. Patient is functional but does have memory issues. Most of the history has been obtained from caregiver/ medical records. Does not appear to be in acute distress . Denies any chest pain or shortness of breath in the ED, there is no appreciable facial droop noted. Further workup showed WBC scan including the urine analysis. COVID was positive and the drug screen was negative. Electrolytes were fairly unremarkable. Follow-up CT scan of the brain shows no acute process and CT angio of the head and neck showed no significant vascular abnormality. Patient was initiated on IV Rocephin for possible urinary tract infection and admitted for further evaluation Subjective Observations Pt was reported to be throat- clearing frequently with all PO intake. MBSS was ordered to determine pt aspiration risk and to develop most appropriate POC. Pt was brought to the fluoroscopy room in fluoro chair. Pt c/o groin pain and needed calming at times. Pain seemed to wax and wane during the MBSS. Patient Positioning Position View Lateral Imaging Lateral View Textures Administered Trials Presented Thin Liquid via Spoon (IDDSI 0 ),Thin Liquid via Cup (IDDSI 0 ),Mildly Thick Liquid via Spoon (IDDSI 2),Mildly Thick Liquid via Cup (IDDSI 2), Mildly Thick Liquid via Straw (IDDSI 2),Puree (IDDSI 4), Minced & Moist (IDDSI 5) Barium Tablet No The IDDSI Framework Protocol: IDDSI.1 Oral Impairment Source: The Modified Barium Swallow Impairment Profile (MBSImP??) Lip Closure Interlabial escape; no progression to anterior lip Tongue Control During Bolus Hold Posterior escape of less than half of bolus Bolus Preparation/Mastication Disorganized chewing/mashing with solid pieces of bolus unchewed Bolus Transport/Lingual Motion Repetitive/disorganized tongue motion Oral Residue Residue collection on oral structures Location Tongue Initiation of Pharyngeal Swallow Bolus head at pyriforms Additional Oral Impairment Observations Pt was confused and did not respond to most questions or directions by the VAT PACKER. Informal observation indicated overall weakness but WFL. Natural dentition in good hygiene was noted. He was alert and cooperative with PO trials. Mastication was disorganized with repetitive movements without complete mastication of solids. Pureed texture was swallowed efficiently without risk for aspiration. Pharyngeal Impairment Source: The Modified Barium Swallow Impairment Profile (MBSImP??) Soft Palate Elevation Trace column of contrast between soft palate & pharyngeal wall Laryngeal Elevation Part.sup.move.thyroid cart/ part.approx.arytenoids to epiglot.petiole Anterior Hyoid Excursion Partial anterior movement Epiglottic Movement No inversion Laryngeal Vestibular Closure Incomplete; narrow column air/ contrast in laryngeal vestibule Pharyngeal Stripping Wave Present - diminished Pharyngoesophageal Segment Opening Partial distention/partial duration; partial obstruction of flow Tongue Base Retraction Wide column of contrast/air betwn tongue base & post. pharyngeal wall Pharyngeal Residue Collection of residue within/ on pharyngeal structures Location Diffuse (>3 areas) Additional Pharyngeal Impairment Overall pharyngeal weakness Observations was noted across all structures: tongue base retraction, hyolaryngeal elevation, bolus control and airway protection. Aspiration with thin liquids was observed x1 with penetration into the laryngeal vestibule observed with thin liquids as well as pharyngeal residual. Significant pooling of contrast within the valecualla and the pyriform sinuses. [place] thick liquids were safely tolerated without penetration or aspiration. Pureed texture was safely swallowed without s/sx aspiration. A/P View The IDDSI Framework Protocol: IDDSI.1 A/P View Observations Additional A-P Observations AP view was not attempted dur to overall pt confusion with directions, physical weakness and his c/o of intermittent groin pain. Clinical Impressions Dysphagia Type Oral,Pharyngeal Findings Pt presented with oropharygeal dysphagia secondary to overall weakness, reduced coordination of the structures and confusion. Pt safely tolerated puree texture and nectar thick liquids. Pt is SILENT ASPIRATION RISK. Small sips of thin WATER following strict oral care is ok with 1;1 supervision ( Diallo free water protocol). Pt is able to clear airway with cued cough (i.e., cough hard). he does spntaneously throat clear with mixed efficiency. Rehabilitation Potential Poor Patient Appropriate for Therapy No: Diet modification and stafff education/ compliance most effective POC recomme Recommendations Diet Liquids Order Mildly Thick (IDDSI 2) Diet Order Pureed (IDDSI 4) Medication Recommendation Whole in Carrier,Crushed in Carrier Comments Straws OK; Cue pt to cough if voice wet or pt is clearing throat Additional Dietary Needs 1:1 Supervision,Encourage to Self-Feed Aspiration Precautions Recommended Precautions Upright at 90 Degrees,Small Bites/Sips Treatment Plan Placement Recommendation After Discharge [facility] Additional Recommendations/Comments Pt's commented that they are thinking about Hospice care. Encouraged her to discuss her options with Roofing Applicator.
--- NOTE | 2023-07-07 14:21 | ST.IPDYTX ---
Visit Care Team Role Provider Type Mynor Rai DO Family Provider Physician Primary Care Provider Specialty: Family Practice Address: [address] [place] [address], [id number] Email: Lizette Bobby DO Emergency Provider Physician Referring Provider Specialty: Emergency Medicine Address: [address] [place] [address], [address] Email: [email or web address] Admit Provider Physician Attending Provider Specialty: Internal Medicine Address: [address] [place] [address], [address] Fax: Email: AUTOMATED CUTTING MACHINE OPERATOR Dysphagia Treatment AUTOMATED CUTTING MACHINE OPERATOR Dysphagia Treatment Start: 07/05/23 12:46 Freq: Status: Active Protocol: Document 07/07/23 14:13 LNK (Rec: 07/07/23 14:21 LNK [id number]) Dysphagia Treatment Session Time Visit Start Time 11:30 Visit Stop Time 12:00 Total Visit Minutes 30 Setting Assessment Location Acute Care Visit Type Note Type Treatment Note Patient Information Identification Type Name Subjective Observations Pt just returned to his room from the MBSS. Pt's in the room. Pt c/o groin pain. Treatment Treatment Activities Introduced self to the pt's . Reviewed the results of the MBSS to the pt and diet recommendations. [place] thick liquids, straws ok and pureed texture. Introduced and explained Diallo free Water Protocol with pt's to increase hydration and add to quality of life. Via the MBSS pt appeared to safely tolerated thin liquids in small (teaspoonsful) amounts. Provided with written information re: thickened liquids, diet texture and Free water protocol to take with her when pt is discharged . All questions were answered . The IDDSI Framework Protocol: IDDSI.1 Assessment Assessment of Improvement Pt was c/o groin pain during my discussion with his . She was appreciative. Recommendations Liquids Order Mildly Thick (IDDSI 2) Diet Order Pureed (IDDSI 4) Medication Recommendations As Tolerated,Crushed in Carrier Additional Dietary Needs 1:1 Supervision,Encourage to Self-Feed Aspiration Precautions Recommended Precautions Alternate Liquids/Solids,Small Bites/Sips Treatment Plan Placement Recommendation after Discharge [facility] Care Facility Appropriate for Continued Therapy Pt to be discharged to LTC facility today
--- NOTE | 2023-07-07 14:55 | PC.NURSE ---
Pt discharged back to [facility] at 1445, escorted off floor in wheelchair accompanied by facility designee and spouse. IV removed, discharge packet sent with facility designee. Report called to Nurse adriana Davis at [phone]. All belongings left with patient.
== END 2023-07-07 14:57 | disposition home health service (06) | DRG 689 ==
LOC: ED 21:19 → AC 21:27
PROVIDERS: Hospitalist; Admitting Provider Internal Medicine; Emergency Provider Emergency Medicine; Family Provider Family Medicine; PCP Family Medicine; Referring Provider Emergency Medicine; Visit Provider Internal Medicine
DX: N30.00 Acute cystitis without hematuria (principal); G93.41 Metabolic encephalopathy; U07.1 COVID-19; F03.90 Unspecified dementia, unspecified severity, without behavioral disturbance, psychotic disturbance, mood disturbance, and anxiety; I10 Essential (primary) hypertension; M62.838 Other muscle spasm; B96.89 Other specified bacterial agents as the cause of diseases classified elsewhere; I48.91 Unspecified atrial fibrillation; Z66 Do not resuscitate; Z79.01 Long term (current) use of anticoagulants
CPT/HCPCS: 0241U; 36415; 51701; 70450; 70496; 70498; 74230; 80048; 80053; 80305; 80320; 81001; 81003; 82550; 82962; 83735; 84100; 84484; 85025; 85027; 85610; 85730; 87086; 92526; 92610; 93005; 96365; 97116; 97162; 97165; 97530; 97535; 99285; G0378; A9270; J0696

== ENCOUNTER 2023-07-29 12:49 | Emergency (ER) | payer MEDICARE, SELFPAY ==
[2023-07-02 22:19] VITALS: BMI 25.9
[2023-07-29 13:03] VITALS: BP 115/63; PULSE 65; RESP 20; TEMP 37.1; O2SAT 92; BMI 23.7
--- NOTE | 2023-07-29 13:12 | DI.US.S_ITS ---
PROCEDURE: US PERIPH VENOUS LOW EXTREM RT INDICATIONS: Right calf pain. Atrial fibrillation. r/o dvt TECHNIQUE: Real-time imaging, as well as color and pulse Doppler interrogation, were performed of the lower extremity deep veins from the inguinal ligament to the popliteal fossa, with documentation of the visualized calf veins. COMPARISON: None. FINDINGS: The common femoral, femoral, popliteal, and the visualized calf veins are normally compressible, and free of intraluminal thrombus. Color and pulse Doppler demonstrate normal phasic intraluminal flow. There is normal augmentation response to distal compression maneuver. 10.3 x 2.5 by 1.5 centimeter complex fluid collection in the right calf. Finding is nonspecific may represent large dissecting popliteal cyst, hematoma or abscess. Please correlate with clinical findings. IMPRESSION: No findings of lower extremity deep venous thrombosis. Dictated by: Allyson Ceron MD, PhD on 07/29/2023 at 14:15 Approved by: Allyson Ceron MD, PhD on 07/29/2023 at 14:17
--- NOTE | 2023-07-29 14:21 | ED.EXTPRO ---
HPI - Extremity Problem <Ja Thompson PA-C - Last Filed: 07/29/23 14:57> General Chief complaint: Extremity Problem,Nontraumatic Stated complaint: Per pt Possible bloodclot Time Seen by Provider: 07/29/23 14:20 Source: family Mode of arrival: Wheelchair History of Present Illness HPI Narrative: This is a 78-year-old male presenting to the emergency department due to right calf pain for the last week. He was not recall any injury to the area although his is his primary historian as he has a history of dementia. Denies any chest pain, fevers, or shortness of breath. Some pain when he attempts to press on the area. Denies any numbness. States that his skin looks ?yellow?. Related Data Home Medications Medication Instructions Recorded Confirmed B-complex with vitamin C 1 tab PO DAILY 11/28/21 07/02/23 Theracurmin 1 cap PO BID 11/28/21 07/03/23 ascorbic acid-elderberry fruit 1 gummy PO 2XD supplement 11/28/21 07/02/23 [Airborne (elderberry)] cholecalciferol (vitamin D3) 25 50 mcg PO DAILY 11/28/21 07/02/23 mcg (1,000 unit) capsule diphenhydramine HCl 25 mg tablet 12.5 mg PO DAILY PRN leg cramps 11/28/21 07/03/23 (Benadryl Allergy) elderberry fruit [Sambucus 1 cap PO BID 11/28/21 07/03/23 Elderberry Original] glucosamine-chondroitin 1 cap PO TID 11/28/21 07/02/23 magnesium oxide 400 mg PO DAILY 11/28/21 07/03/23 vitamin E 268 mg (400 unit) capsule 400 unit PO DAILY 11/28/21 07/03/23 Resmed Airsense 10 CPAP #1 ea 01/21/22 07/03/23 trazodone 50 mg tablet 50 mg PO BEDTIME PRN Anxiety 04/19/23 07/03/23 Efudex 5 % topical DAILY 07/03/23 07/03/23 acetaminophen 325 mg tablet 325 mg PO QID PRN discomfort or 07/03/23 07/03/23 (Tylenol) fever calcipotriene 0.005 % topical 1 applic topical DAILY 07/03/23 07/03/23 ointment memantine 5 mg tablet 5 mg PO DAILY 07/03/23 07/03/23 quetiapine 25 mg tablet (Seroquel) 25 mg PO Q6-8H PRN Anxiety 07/03/23 07/03/23 Previous Rx's Medication Instructions Recorded Disabled Parking permit #1 ea 06/19/21 donepezil 10 mg tablet 10 mg PO .in the evening #90 tabs 10/16/22 rivaroxaban 20 mg tablet (Xarelto) 20 mg PO DAILY #90 tabs 10/16/22 methocarbamol 500 mg tablet 500 mg PO Q8H PRN muscle spasms, 07/07/23 use if benadryl doesn't work #30 tabs metoprolol tartrate 25 mg tablet 12.5 mg (1/2 x 25 mg) PO BID #30 07/07/23 tabs Allergies Allergy/AdvReac Type Severity Reaction Status Date / Time No Known Drug Allergies Allergy Verified 07/02/23 19:32 Review of Systems <Ja Thompson PA-C - Last Filed: 07/29/23 14:57> Review of Systems Narrative: GENERAL: Denies chills, fatigue, malaise, fever, sweats. HEENT: Denies sinus pain, ear pain, sore throat, difficulty swallowing, dizziness. RESPIRATORY: Denies dyspnea, cough, wheezing, hemoptysis, sputum. CARDIOVASCULAR: Denies chest pain, palpitations, orthopnea, edema, GASTROINTESTINAL: Denies nausea, vomiting, abdominal pain, diarrhea, constipation, melena. : Denies dysuria, frequency, incontinence, hematuria, urinary retention. MUSCULOSKELETAL: Right lower extremity pain denies weakness, joint pain, or bony pain SKIN: Reports skin ?yellowing? to the right calf, Denies rash, skin lesions, or other NEUROLOGIC: Denies weakness, headache, numbness, change in speech, confusion, seizures, incoordination. PSYCHIATRIC: No concerning psychosocial issues. 12 point review of systems is negative except for those stated above Patient History <Ja Thompson PA-C - Last Filed: 07/29/23 14:57> Medical History Chronic 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 Benign prostatic hyperplasia Lower urinary tract symptoms Asymptomatic microscopic hematuria Greater trochanteric bursitis of right hip Folate deficiency Sleep walking Hypotension Easy bruisability Chronic anticoagulation Bilateral finger numbness Cervical radiculopathy Segmental and somatic dysfunction of rib cage Somatic dysfunction of lower extremity Cervical somatic dysfunction Cranial somatic dysfunction Stiff neck Squamous cell carcinoma, leg Screening for prostate cancer 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 Foot joint stiffness, bilateral Thoracic region somatic dysfunction Central stenosis of spinal canal Lumbar foraminal stenosis Segmental and somatic dysfunction of abdomen and other regions Sacral region somatic dysfunction Pelvic somatic dysfunction Lumbar region somatic dysfunction Atrial fibrillation Fatigue (~11/23/19) Cognitive decline Obstructive sleep apnea of adult Low back pain Concussion Fall (on) (from) other stairs and steps, sequela Dizziness Heart disease Surgical History History of right hip replacement Hx of Achilles tendon repair Hx of umbilical hernia repair Family History Father Blood disease Diabetes mellitus Eczema Hearing impairment Mother Melanoma Social History marital status: details: to Елена household members: none lives independently: Yes caregiver/support person: No education level: college occupational status: previously employed (now retired) 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 HEAD: Atraumatic. Normocephalic. EYES: Pupils equal round and reactive. Extraocular motions intact. No scleral icterus. No injection or drainage. ENT: Nose without bleeding, purulent drainage. Throat without erythema, tonsillar hypertrophy or exudate. Airway patent. NECK: Trachea midline. Non tender EXTREMITIES: Tenderness to palpation to the right posterior calf with some ecchymosis noted. Mildly edematous, nonpitting. neurovascularly intact throughout. NEURO: AOx3. SKIN: No rash or erythema of visible areas Initial Vital Signs Initial Vital Signs: Vital Signs Temperature 98.8 F 07/29/23 13:03 Pulse Rate 65 07/29/23 13:03 Respiratory Rate 20 07/29/23 13:03 Blood Pressure 115/63 07/29/23 13:03 Pulse Oximetry 92 07/29/23 13:03 Oxygen Delivery Method Room Air 07/29/23 13:03 <Tri Rose MD - Last Filed: 07/29/23 18:13> Initial Vital Signs Initial Vital Signs: Vital Signs Temperature 98.8 F 07/29/23 13:03 Pulse Rate 65 07/29/23 13:03 Respiratory Rate 20 07/29/23 13:03 Blood Pressure 115/63 07/29/23 13:03 Pulse Oximetry 92 07/29/23 13:03 Oxygen Delivery Method Room Air 07/29/23 13:03 Course <Ja Thompson PA-C - Last Filed: 07/29/23 14:57> Orders Ordered: ED Orders 07/29/23 13:12 US periph venous low extrem rt Stat Vital Signs Vital signs: Vital Signs - 8 hr 07/29/23 13:03 07/29/23 15:01 Temperature 98.8 F Pulse Rate 65 67 Respiratory Rate 20 14 Blood Pressure 115/63 121/67 Pulse Oximetry 92 98 Oxygen Delivery Method Room Air Room Air <Tri Rose MD - Last Filed: 07/29/23 18:13> Orders Ordered: ED Orders 07/29/23 13:12 US periph venous low extrem rt Stat Vital Signs Vital signs: Vital Signs - 8 hr 07/29/23 13:03 07/29/23 15:01 Temperature 98.8 F Pulse Rate 65 67 Respiratory Rate 20 14 Blood Pressure 115/63 121/67 Pulse Oximetry 92 98 Oxygen Delivery Method Room Air Room Air MDM - Extremity (Nontraumatic) <Ja Thompson PA-C - Last Filed: 07/29/23 14:57> Imaging Data US - DVT: Radiologist's Impression: [address] [address] Ultrasound Report Signed Patient: Burt Hatch MR#: [id number] : 1945 Acct:[id number] Age/Sex: 78 / M Date of Service: 07/29/23 Loc: ED Accession Number: [id number] Procedure: US perip venous low extrem rt Ordering Provider: Tri Rose MD PROCEDURE: PERIP VENOUS LOW EXTREM RT INDICATIONS: Right calf pain. Atrial fibrillation. r/o dvt TECHNIQUE: Real-time imaging, as well as color and pulse Doppler interrogation, were performed of the lower extremity deep veins from the inguinal ligament to the popliteal fossa, with documentation of the visualized calf veins. COMPARISON: None. FINDINGS: The common femoral, femoral, popliteal, and the visualized calf veins are normally compressible, and free of intraluminal thrombus. Color and pulse Doppler demonstrate normal phasic intraluminal flow. There is normal augmentation response to distal compression maneuver. 10.3 x 2.5 by 1.5 centimeter complex fluid collection in the right calf. Finding is nonspecific may represent large dissecting popliteal cyst, hematoma or abscess. Please correlate with clinical findings. IMPRESSION: No findings of lower extremity deep venous thrombosis. Dictated by: Allyson Ceron MD, PhD on 07/29/2023 at 14:15 Approved by: Allyson Ceron MD, PhD on 07/29/2023 at 14:17 [facility] Narrative Medical decision making narrative: ED course: This is a 78-year-old male presenting to the emergency department due to right calf pain. Ultrasound was ordered to rule out DVT. Negative for DVT but did show large nonspecific fluid collection concerning for possible hematoma, abscess, or ruptured cyst.. Areas not warm to the touch with no fluctuance concerning for any kind of abscess. Does not recall any Maloney's cyst like symptoms. Did have mild ecchymosis and suspect likely hematoma. Patient was on Xarelto daily due to his AFib this is suspect this is a contributing factor to the patient's relatively mild swelling and pain to the area. Recommended elevation, compression, Tylenol as needed for pain as well as ice. Patient had 2+ dorsalis pedis and posterior tibialis pulses and very low concern for any kind of arterial injury. There was no pain with palpation to the bony part of the tibia and low concern for any kind of fracture. CC: Right calf pain Complicating co-morbidities: On Xarelto Data collected from: Previous notes Medical records reviewed: Patient was last seen a month ago due to neuro deficits. History of AFib, cognitive decline, hyperlipidemia, hypertension. Takes Xarelto daily. Reportedly had facial droop noted. History of right hip replacement. Was not a candidate for tPA. Initial non-con head CT was negative as well as CT head and neck angio. Showed rate controlled AFib. COVID positive. Was admitted for observation. Differential considered, but not limited to: Maloney cyst, abscess, hematoma, DVT Exam documented above, pertinent findings include: Tenderness to palpation of the right posterior calf with some ecchymosis Lab Test results independently reviewed as above. Pertinent findings: None obtained Imaging studies independently reviewed: As above Scores Used: None MIPS Elements: None Consultations: None Treatments: None Re-evaluations: None Discussion: Discussed plan with the patient was comfortable with the plan Diagnosis: Hematoma Disposition: see below, along with detailed discharge instructions that have been reviewed with patient as well as indications for ED re-evaluation and additional outpatient follow up Discharge Plan Departure Patient Disposition: Home Clinical Impression: Hematoma Instructions: DI for Hematoma (Bruise) Activity Restrictions/Additional Instructions: Thank you for coming to the [facility] Emergency Department today. As we discussed your ultrasound was negative for DVT or ?blood clot? in your right lower leg. It did show a possible hematoma which I suspect this is. Treat this as you would a bruise. I suspect symptoms are somewhat worse as the patient was on blood thinners. I recommend rest, elevation, ice to the area, and compression. Please ask your caretakers at your facility to help with this. Please continue taking your blood thinner. This should improve over time. Please return to the emergency department if you develop any chest pain, shortness of breath, uncontrollable pain, or any other concerning signs or symptoms. I hope you feel better soon. Please follow up with your primary care provider within a week if your symptoms continue. If you do not have a primary care provider please contact the [facility] Resource line at [phone]. They will ask some questions about your medical history and help you get set up with a provider in the community. Prescriptions: No Action Xarelto 20 mg tablet 20 mg PO DAILY Qty: 90 3RF donepezil 10 mg tablet 10 mg PO .in the evening Qty: 90 3RF (DME) Disabled Parking permit See Rx Instructions .Route .MEDSUPPLY Qty: 1 0RF Rx Instructions: As directed cholecalciferol (vitamin D3) 25 mcg (1,000 unit) capsule 50 mcg PO DAILY B-complex with vitamin C Tablet 1 tab PO DAILY vitamin E 400 unit capsule 400 unit PO DAILY magnesium oxide 400 mg magnesium capsule 400 mg PO DAILY Theracurmin 1 cap PO BID glucosamine-chondroitin 1 cap PO TID ascorbic acid-elderberry fruit [Airborne (elderberry)] 1 gummy PO 2XD elderberry fruit [Sambucus Elderberry Original] 1 cap PO BID diphenhydramine HCl [Benadryl Allergy] 25 mg tablet 12.5 mg PO DAILY PRN (Reason: leg cramps) memantine 5 mg tablet 5 mg PO DAILY calcipotriene 0.005 % ointment 1 applic topical DAILY quetiapine [Seroquel] 25 mg Tablet 25 mg PO Q6-8H PRN (Reason: Anxiety) Efudex cream 5 % topical DAILY acetaminophen [Tylenol] 325 mg Tablet 325 mg PO QID PRN (Reason: discomfort or fever) metoprolol tartrate 25 mg Tablet 12.5 mg PO BID Qty: 30 0RF methocarbamol 500 mg tablet 500 mg PO Q8H PRN (Reason: muscle spasms, use if benadryl doesn't work) Qty: 30 0RF (DME) Resmed Airsense 10 CPAP Qty: 1 Dose Instruction: As directed Patient Comments: Pressure: 8-16 cmH2O DME: NORCO STEPHENIE: 7.25.22 Rx Instructions: As directed trazodone 50 mg tablet 50 mg PO BEDTIME PRN (Reason: Anxiety) Referrals: Mynor Rai, DO [Primary Care Provider] - Stand Alone Forms: Patient Portal/API ED Sign-out <Tri Rose MD - Last Filed: 07/29/23 18:13> Cosign ED Attending Roxanna Attestation: I was immediately available in the department for consultation throughout this patient's visit. Tri Rose MD
[2023-07-29 15:01] VITALS: BP 121/67; PULSE 67; RESP 14; O2SAT 98
== END 2023-07-29 15:03 | disposition home or self-care (01) ==
PROVIDERS: Emergency Provider Physician Assistant Medical; Family Provider Family Medicine; PCP Family Medicine
DX: S80.11XA Contusion of right lower leg, initial encounter (principal); Z79.01 Long term (current) use of anticoagulants; Z79.899 Other long term (current) drug therapy
CPT/HCPCS: 93971; 99283

== ENCOUNTER 2023-12-26 06:00 | Emergency (ER) | payer MEDICARE, SELFPAY ==
[2023-07-02 22:19] VITALS: BMI 25.9
[2023-12-26] VITALS (7 sets, daily range): BP systolic 120–137; BP diastolic 60–82; PULSE 75–86; RESP 16–18; TEMP 36.6; O2SAT 96–98
--- NOTE | 2023-12-26 06:05 | DI.CT.S_ITS ---
PROCEDURE: CT HEAD/BRAIN WO CON INDICATIONS: fall on xeralto TECHNIQUE: Noncontrast 4.5 mm thick angled axial sections acquired from the foramen magnum to the vertex, with coronal and sagittal reformats. For radiation dose reduction, the following was used: automated exposure control, adjustment of mA and/or kV according to patient size. COMPARISON: None. FINDINGS: Image quality: Diagnostic. CSF spaces: Basal cisterns are patent. No extra-axial fluid collections. Generalized ventriculomegaly out of proportion to sulcal widening. Brain: No midline shift. No intracranial masses or hemorrhage. Ken-white matter interface is normal. Skull and face: Calvarium and visualized facial bones are intact, without suspicious lesions. Sinuses: Visualized sinuses and mastoids are clear. IMPRESSION: Atrophy and chronic ischemic change hemorrhage or mass effect. Moderate ventriculomegaly out of proportion to degree of cerebral atrophy. Differential would include centralized atrophy and normal pressure hydrocephalus. If clinically relevant, consider additional confirmatory testing. Approved by: Brad Maldonado M.D. on 12/26/2023 at 9:32
--- NOTE | 2023-12-26 06:08 | ED_ITS ---
HPI - Fall General Chief Complaint: Fall Stated Complaint: found down Time Seen by Provider: 12/26/23 06:02 History of Present Illness HPI Narrative: Patient 78-year-old male who presents today from [facility] for altered mental status. It is very unclear what happened he initially was called as a fall. But there is no real evidence of a fall staff actually did not see him fall patient denies that he fell. He does seem awake and responsive. He generally has no complaints. Staff you might be a little less responsive than normal Related Data Home Medications Medication Instructions Recorded Confirmed B-complex with vitamin C 1 tab PO DAILY 11/28/21 07/02/23 Theracurmin 1 cap PO BID 11/28/21 07/03/23 ascorbic acid-elderberry fruit 1 gummy PO 2XD supplement 11/28/21 07/02/23 [Airborne (elderberry)] cholecalciferol (vitamin D3) 25 50 mcg PO DAILY 11/28/21 07/02/23 mcg (1,000 unit) capsule diphenhydramine HCl 25 mg tablet 12.5 mg PO DAILY PRN leg cramps 11/28/2107/03 (Benadryl Allergy) elderberry fruit [Sambucus 1 cap PO BID 11/28/21 07/03/23 Elderberry Original] glucosamine-chondroitin 1 cap PO TID 11/28/21 07/02/23 magnesium oxide 400 mg PO DAILY 11/28/21 07/03/23 vitamin E 268 mg (400 unit) capsule 400 unit PO DAILY 11/28/21 07/03/23 Resmed Airsense 10 CPAP #1 ea 01/21/22 07/03/23 trazodone 50 mg tablet 50 mg PO BEDTIME PRN Anxiety 04/19/23 07/03/23 Efudex 5 % topical DAILY 07/03/23 07/03/23 acetaminophen 325 mg tablet 325 mg PO QID PRN discomfort or 07/03/23 07/03/23 (Tylenol) fever calcipotriene 0.005 % topical 1 applic topical DAILY 07/03/23 07/03/23 ointment memantine 5 mg tablet 5 mg PO DAILY 07/03/23 07/03/23 quetiapine 25 mg tablet (Seroquel) 25 mg PO Q6-8H PRN Anxiety 07/03/23 07/03/23 Previous Rx's Medication Instructions Recorded Disabled Parking permit #1 ea 06/19/21 donepezil 10 mg tablet 10 mg PO .in the evening #90 tabs 10/16/22 rivaroxaban 20 mg tablet (Xarelto) 20 mg PO DAILY #90 tabs 10/16/22 methocarbamol 500 mg tablet 500 mg PO Q8H PRN muscle spasms, 07/07/23 use if benadryl doesn't work #30 tabs metoprolol tartrate 25 mg tablet 12.5 mg (1/2 x 25 mg) PO BID #30 07/07/23 tabs Allergies Allergy/AdvReac Type Severity Reaction Status Date / Time No Known Drug Allergies Allergy Verified 07/02/23 19:32 Patient History Medical History Chronic 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 Benign prostatic hyperplasia Lower urinary tract symptoms Asymptomatic microscopic hematuria Greater trochanteric bursitis of right hip Folate deficiency Sleep walking Hypotension Easy bruisability Chronic anticoagulation Bilateral finger numbness Cervical radiculopathy Segmental and somatic dysfunction of rib cage Somatic dysfunction of lower extremity Cervical somatic dysfunction Cranial somatic dysfunction Stiff neck Squamous cell carcinoma, leg Screening for prostate cancer 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 Foot joint stiffness, bilateral Thoracic region somatic dysfunction Central stenosis of spinal canal Lumbar foraminal stenosis Segmental and somatic dysfunction of abdomen and other regions Sacral region somatic dysfunction Pelvic somatic dysfunction Lumbar region somatic dysfunction Atrial fibrillation Fatigue (~11/23/19) Cognitive decline Obstructive sleep apnea of adult Low back pain Concussion Fall (on) (from) other stairs and steps, sequela Dizziness Heart disease Surgical History History of right hip replacement Hx of Achilles tendon repair Hx of umbilical hernia repair Family History Father Blood disease Diabetes mellitus Eczema Hearing impairment Mother Melanoma Social History marital status: details: cintia Christiansen household members: none lives independently: Yes caregiver/support person: No education level: college occupational status: previously employed (now retired) 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 [employer] leisure activities: other (speaks frequently via Zoom with [employer], who live in [place]) Smoking Status: Never smoker alcohol intake: current Type(s) of exercise: walking frequency: 1-2 times per week Smoking Status: Never smoker alcohol intake frequency: holidays/special occasions only Substance Use Type: does not use Exam Initial Vital Signs Initial Vital Signs: Vital Signs Pulse Rate 77 12/26/23 06:04 Blood Pressure 134/63 12/26/23 06:04 Pulse Oximetry 98 12/26/23 06:04 GENERAL: Alert pleasant 78-year-old male HEENT: Head atraumatic,EOMI, pupils reactive, face symmetric, moist mucous membranes CARDIOVASCULAR: Regular rate and rhythm without murmurs, rubs or gallops. RESPIRATORY: Breath sounds equal bilaterally, no wheezes rales or rhonchi. ABDOMEN: Soft, nontender. Normoactive bowel sounds all 4 quadrants. No guarding or rebound. EXTREMITIES: Normal range of motion, no clubbing or edema. 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 Course Orders Ordered: ED Orders 12/26/23 06:05 CT head/brain wo con Stat Vital Signs Vital signs: Vital Signs - 8 hr 12/26/23 06:08 Temperature 98 F Pulse Rate 76 Respiratory Rate 16 Blood Pressure 134/63 Pulse Oximetry 97 Oxygen Delivery Method Room Air MDM - Fall Imaging Data CT scan - head: Radiologist's Impression: Preliminary read excessive motion requires repeat to exclude. Tentorial or parafalcine subdural hematomas cerebral volume loss intracranial atherosclerotic disease moderate sequela of chronic small-vessel ischemic changes MDM Narrative Medical decision making narrative: Patient is 78-year-old male on Xarelto with questionable history no obvious evidence of trauma there is no witness fall patient denies fall. CT does show excessive motion however patient is not having signs or symptoms of subdural there is no evidence of traumatic injury at this time I do not think he needs a repeat head CT. Discharge Plan Departure Patient Disposition: Home Clinical Impression: Fall Instructions: How to Prevent Falls Activity Restrictions/Additional Instructions: *You have been diagnosed with possible fall *What to do: No evidence of fall *Continue to take medications as directed *Follow up with your primary care provider in 2-3 days or call [phone] *Return to ER if you should have any new, worsening or concerning symptoms Prescriptions: No Action Xarelto 20 mg tablet 20 mg PO DAILY Qty: 90 3RF donepezil 10 mg tablet 10 mg PO .in the evening Qty: 90 3RF (DME) Disabled Parking permit See Rx Instructions .Route .MEDSUPPLY Qty: 1 0RF Rx Instructions: As directed cholecalciferol (vitamin D3) 25 mcg (1,000 unit) capsule 50 mcg PO DAILY B-complex with vitamin C Tablet 1 tab PO DAILY vitamin E 400 unit capsule 400 unit PO DAILY magnesium oxide 400 mg magnesium capsule 400 mg PO DAILY Theracurmin 1 cap PO BID glucosamine-chondroitin 1 cap PO TID ascorbic acid-elderberry fruit [Airborne (elderberry)] 1 gummy PO 2XD elderberry fruit [Sambucus Elderberry Original] 1 cap PO BID diphenhydramine HCl [Benadryl Allergy] 25 mg tablet 12.5 mg PO DAILY PRN (Reason: leg cramps) memantine 5 mg tablet 5 mg PO DAILY calcipotriene 0.005 % ointment 1 applic topical DAILY quetiapine [Seroquel] 25 mg Tablet 25 mg PO Q6-8H PRN (Reason: Anxiety) Efudex cream 5 % topical DAILY acetaminophen [Tylenol] 325 mg Tablet 325 mg PO QID PRN (Reason: discomfort or fever) metoprolol tartrate 25 mg Tablet 12.5 mg PO BID Qty: 30 0RF methocarbamol 500 mg tablet 500 mg PO Q8H PRN (Reason: muscle spasms, use if benadryl doesn't work) Qty: 30 0RF (DME) Resmed Airsense 10 CPAP Qty: 1 Dose Instruction: As directed Patient Comments: Pressure: 8-16 cmH2O DME: NORCO STEPHENIE: 7.25.22 Rx Instructions: As directed trazodone 50 mg tablet 50 mg PO BEDTIME PRN (Reason: Anxiety) Referrals: Mynor Rai DO [Primary Care Provider] - Stand Alone Forms: Patient Portal/API
== END 2023-12-26 08:00 | disposition home or self-care (01) ==
PROVIDERS: Emergency Provider Emergency Medicine; Family Provider Family Medicine; PCP Family Medicine
DX: R41.82 Altered mental status, unspecified (principal); W19.XXXA Unspecified fall, initial encounter; Z79.01 Long term (current) use of anticoagulants
CPT/HCPCS: 70450; 99283; 99284

== ENCOUNTER 2024-01-08 10:17 | Emergency (ER) | payer MEDICARE, SELFPAY ==
[2023-07-02 22:19] VITALS: BMI 25.9
[2024-01-08] VITALS (8 sets, daily range): BP systolic 130–154; BP diastolic 72–107; PULSE 55–74; RESP 16; TEMP 36.6; O2SAT 91–100; BMI 26.4
--- NOTE | 2024-01-08 10:24 | ED.FALL ---
HPI - Fall General Chief Complaint: Trauma Stated Complaint: Fall,head injury on thinners,right hip pain Time Seen by Provider: 01/08/24 10:24 History of Present Illness HPI Narrative: Patient is a 78-year-old male past medical history of Parkinson's, hypertension, AFib on rivaroxaban, comes into the ED from home via EMS for evaluation of mechanical trip and fall. Patient states that he was walking when he tripped on something fell to his right side. States that he is unsure if he hit his head, did not stand and bear weight given was witnessed fall and they told him to not get up. Patient up-to-date on tetanus. Not complaining of any headache visual disturbances chest pain shortness breath fever chills nausea vomiting abdominal pain or any other GI/ symptoms. He states that he ?feels fine and nothing really hurts. He states that he did fall onto his right hip. Related Data Home Medications Medication Instructions Recorded Confirmed B-complex with vitamin C 1 tab PO DAILY 11/28/21 07/02/23 Theracurmin 1 cap PO BID 11/28/21 07/03/23 ascorbic acid-elderberry fruit 1 gummy PO 2XD supplement 11/28/21 07/02/23 [Airborne (elderberry)] cholecalciferol (vitamin D3) 25 50 mcg PO DAILY 11/28/21 07/02/23 mcg (1,000 unit) capsule diphenhydramine HCl 25 mg tablet 12.5 mg PO DAILY PRN leg cramps 11/28/21 07/03/23 (Benadryl Allergy) elderberry fruit [Sambucus 1 cap PO BID 11/28/21 07/03/23 Elderberry Original] glucosamine-chondroitin 1 cap PO TID 11/28/21 07/02/23 magnesium oxide 400 mg PO DAILY 11/28/21 07/03/23 vitamin E 268 mg (400 unit) capsule 400 unit PO DAILY 11/28/21 07/03/23 Resmed Airsense 10 CPAP #1 ea 01/21/22 07/03/23 trazodone 50 mg tablet 50 mg PO BEDTIME PRN Anxiety 04/19/23 07/03/23 Efudex 5 % topical DAILY 07/03/23 07/03/23 acetaminophen 325 mg tablet 325 mg PO QID PRN discomfort or 07/03/23 07/03/23 (Tylenol) fever calcipotriene 0.005 % topical 1 applic topical DAILY 07/03/23 07/03/23 ointment memantine 5 mg tablet 5 mg PO DAILY 07/03/23 07/03/23 quetiapine 25 mg tablet (Seroquel) 25 mg PO Q6-8H PRN Anxiety 07/03/23 07/03/23 Previous Rx's Medication Instructions Recorded Disabled Parking permit #1 ea 06/19/21 donepezil 10 mg tablet 10 mg PO .in the evening #90 tabs 10/16/22 rivaroxaban 20 mg tablet (Xarelto) 20 mg PO DAILY #90 tabs 10/16/22 methocarbamol 500 mg tablet 500 mg PO Q8H PRN muscle spasms, 07/07/23 use if benadryl doesn't work #30 tabs metoprolol tartrate 25 mg tablet 12.5 mg (1/2 x 25 mg) PO BID #30 07/07/23 tabs Allergies Allergy/AdvReac Type Severity Reaction Status Date / Time No Known Drug Allergies Allergy Verified 07/02/23 19:32 Review of Systems Review of Systems Narrative: HEENT: Denies headache, eye drainage, eye irritation, head trauma, sore throat, voice change, positive mechanical trip and fall Cardiovascular: Denies any chest pain, palpitations, shortness of breath, tachycardia Respiratory: Denies any shortness of breath, cough, wheeze, stridor GI/: Denies any abdominal pain, nausea, vomiting, diarrhea, bright red blood per rectum, melanotic stools, urinary frequency, urinary retention, dysuria, hematuria MSK: Denies any joint pain, muscle pains, swelling Skin: Denies any rashes, lesions, discoloration, positive skin tear to right hand Neuro: Denies any headache, lightheadedness, dizziness, fainting, weakness Psych: Denies SI/HI Patient History Medical History Chronic 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 Benign prostatic hyperplasia Lower urinary tract symptoms Asymptomatic microscopic hematuria Greater trochanteric bursitis of right hip Folate deficiency Sleep walking Hypotension Easy bruisability Chronic anticoagulation Bilateral finger numbness Cervical radiculopathy Segmental and somatic dysfunction of rib cage Somatic dysfunction of lower extremity Cervical somatic dysfunction Cranial somatic dysfunction Stiff neck Squamous cell carcinoma, leg Screening for prostate cancer 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 Foot joint stiffness, bilateral Thoracic region somatic dysfunction Central stenosis of spinal canal Lumbar foraminal stenosis Segmental and somatic dysfunction of abdomen and other regions Sacral region somatic dysfunction Pelvic somatic dysfunction Lumbar region somatic dysfunction Atrial fibrillation Fatigue (~11/23/19) Cognitive decline Obstructive sleep apnea of adult Low back pain Concussion Fall (on) (from) other stairs and steps, sequela Dizziness Heart disease Surgical History History of right hip replacement Hx of Achilles tendon repair Hx of umbilical hernia repair Family History Father Blood disease Diabetes mellitus Eczema Hearing impairment Mother Melanoma Social History marital status: details: to Елена household members: none lives independently: Yes caregiver/support person: No education level: college occupational status: previously employed (now retired) 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 [employer] leisure activities: other (speaks frequently via Zoom with [employer], who live in [place]) Smoking Status: Never smoker alcohol intake: current Type(s) of exercise: walking frequency: 1-2 times per week Smoking Status: Never smoker alcohol intake frequency: holidays/special occasions only Substance Use Type: does not use Exam Narrative Exam Narrative: General: Cooperative, comfortable, well-developed, not in acute distress HEENT: Normocephalic, atraumatic, PERRLA, normal sclera, eyelids normal, Neck: Active full range of motion, atraumatic Chest: Normal to inspection, negative crepitus, no overlying erythema ecchymosis Respiratory: Normal respiratory effort, not in acute respiratory distress, clear to auscultation bilaterally negative cough, wheeze, tachypnea, rhonchi, rales Cardiology: Regular rate rhythm negative gallop, murmur, rubs GI/: Normal to inspection, soft, nonrigid, no tenderness to palpation, exam deferred MSK: Full range of active range of motion of all 4 extremities, no tenderness to palpation of any bony prominences, neurovascularly intact all compartments soft Skin: No rashes lesions noted, skin tear noted to the posterior aspect of the right hand but no active VB no foreign body Neuro: Alert awake oriented x3, moves all 4 extremities spontaneously, cranial nerves intact, able to answer all questions appropriately follows commands appropriately Psych: Cooperative, negative suicidal or homicidal ideations Initial Vital Signs Initial Vital Signs: Vital Signs Temperature 97.8 F 01/08/24 10:21 Pulse Rate 74 01/08/24 10:21 Respiratory Rate 16 01/08/24 10:21 Blood Pressure 139/78 01/08/24 10:21 Pulse Oximetry 97 01/08/24 10:21 Oxygen Delivery Method Room Air 01/08/24 10:21 Course Course Course Narrative: #415 - Emergency Medicine: Utilization of CT for Minor Blunt Head Trauma (Adult) [] Patient has one or more of the following conditions that are excluded from the measure (select all that apply): [] Patient has ventricular shunt [] Patient has brain tumor [] Patient is [] Patient has multi-system trauma [] Patient taking an antiplatelet medication (excluding aspirin) [] Head CT not ordered by emergency critical care registered nurse [] Head CT ordered for reasons other than trauma [] Patient is 18 or older, presenting with minor blunt head trauma. Head CT (including cosigned orders) was ordered by an emergency critical care registered nurse for trauma because (select one or more): [SATISFIES MIPS PERFORMANCE] Reasons: [x] Patient is 65 or older [] Patient GCS < 15 [] Patient has focal neurologic deficit [] Patient has severe headache [] Patient is vomiting [] Severe/dangerous mechanism of injury was identified (select one or more): []MVA with: patient ejection, of another passenger, rollover, speed > 40mph, airbag deployment, gravel truck driver or passenger on ATV or motorcycle [] pedestrian or bicyclist without helmet: struck my motorized vehicle, in bicycle crash [] fall > 3 feet or 5 stairs [] head struck by high-impact object (hammer, baseball, baseball bat, heavy object such as falling brick) [] Other: [] Patient has physical signs of basilar skull fracture present (including hemotympanum, ?raccoon? eyes, CSF leakage from ear or nose, Mederos?s sign) [] Patient suspected of taking anticoagulant medication [] Patient has thrombocytopenia [] Patient has coagulopathy [] Patient has loss of consciousness and (must select one of the following): []Headache [x]Short term memory deficit []Alcohol/drug intoxication []Evidence of trauma above the clavicles []Age 60 or older [] Post-traumatic seizure [] Patient has post-traumatic amnesia and (must select one of the following): []Headache []Short term memory deficit []Alcohol/drug intoxication []Evidence of trauma above the clavicles []Age 60 or older [] Post-traumatic seizure Orders Ordered: ED Orders 01/08/24 10:29 CT cervical spine wo con Stat CT head/brain wo con Stat XR hip w pel if done RT 2V Stat Vital Signs Vital signs: Vital Signs - 8 hr 01/08/24 10:21 01/08/24 10:21 01/08/24 10:21 Temperature 97.8 F Pulse Rate 74 64 Respiratory Rate 16 Blood Pressure 139/78 139/78 Pulse Oximetry 97 96 Oxygen Delivery Method Room Air 01/08/24 10:30 01/08/24 10:31 01/08/24 10:31 Temperature Pulse Rate 61 70 Respiratory Rate Blood Pressure 154/107 H Pulse Oximetry 100 100 Oxygen Delivery Method 01/08/24 11:04 01/08/24 11:05 01/08/24 11:05 Temperature Pulse Rate 55 L 69 Respiratory Rate Blood Pressure 143/82 H Pulse Oximetry 91 99 Oxygen Delivery Method 01/08/24 11:30 01/08/24 11:30 Temperature Pulse Rate 68 Respiratory Rate Blood Pressure 134/72 Pulse Oximetry 98 Oxygen Delivery Method MDM - Fall Differential Diagnosis Differential diagnosis: Likely other (Intracranial hemorrhage, cervical neck fracture, hip fracture, muscle contusion) Medical Records Attestation: I reviewed the patient's medical records. Lab Data Attestation: I reviewed the patient's lab results. Labs: Point of Care Testing Glucose POC 126 MDM Narrative Medical decision making narrative: Patient is a 70-year-old male with past medical history of AFib on rivaroxaban brought in by EMS for witnessed mechanical trip and fall. Patient tripped and landed on his right side. Only complaint was some pain to his right hip. Neurovascularly intact CT scans and x-ray without any acute fractures or bleeding. Patient safe for discharge home with outpatient follow-up. Strict return precautions were given Discharge Plan Departure Patient Disposition: Home Clinical Impression: Abrasion, Muscle contusion Closed head injury Qualifiers: Encounter type: initial encounter Qualified Code(s): S09.90XA - Unspecified injury of head, initial encounter Activity Restrictions/Additional Instructions: Please read the discharge instructions sheet carefully and bring all papers to all doctor follow-up visits, as it may contain information that your doctor may want to see. Disease processes change and evolve, if your symptoms worsen or if you develop any new symptoms that are concerning to you please return for evaluation. Your evaluation today does not show any evidence of any life-threatening/serious illnesses requiring admission to the hospital or surgery. Please follow-up with your doctor for re-evaluation in approximately 1 day. Seek immediate medical attention for any worrisome symptoms. Prescriptions: No Action Xarelto 20 mg tablet 20 mg PO DAILY Qty: 90 3RF donepezil 10 mg tablet 10 mg PO .in the evening Qty: 90 3RF (DME) Disabled Parking permit See Rx Instructions .Route .MEDSUPPLY Qty: 1 0RF Rx Instructions: As directed cholecalciferol (vitamin D3) 25 mcg (1,000 unit) capsule 50 mcg PO DAILY B-complex with vitamin C Tablet 1 tab PO DAILY vitamin E 400 unit capsule 400 unit PO DAILY magnesium oxide 400 mg magnesium capsule 400 mg PO DAILY Theracurmin 1 cap PO BID glucosamine-chondroitin 1 cap PO TID ascorbic acid-elderberry fruit [Airborne (elderberry)] 1 gummy PO 2XD elderberry fruit [Sambucus Elderberry Original] 1 cap PO BID diphenhydramine HCl [Benadryl Allergy] 25 mg tablet 12.5 mg PO DAILY PRN (Reason: leg cramps) memantine 5 mg tablet 5 mg PO DAILY calcipotriene 0.005 % ointment 1 applic topical DAILY quetiapine [Seroquel] 25 mg Tablet 25 mg PO Q6-8H PRN (Reason: Anxiety) Efudex cream 5 % topical DAILY acetaminophen [Tylenol] 325 mg Tablet 325 mg PO QID PRN (Reason: discomfort or fever) metoprolol tartrate 25 mg Tablet 12.5 mg PO BID Qty: 30 0RF methocarbamol 500 mg tablet 500 mg PO Q8H PRN (Reason: muscle spasms, use if benadryl doesn't work) Qty: 30 0RF (DME) Resmed Airsense 10 CPAP Qty: 1 Dose Instruction: As directed Patient Comments: Pressure: 8-16 cmH2O DME: NORCO STEPHENIE: 7.25.22 Rx Instructions: As directed trazodone 50 mg tablet 50 mg PO BEDTIME PRN (Reason: Anxiety) Referrals: Mynor Rai DO [Primary Care Provider] - Stand Alone Forms: Patient Portal/API
--- NOTE | 2024-01-08 10:29 | DI.RAD.S_ITS ---
PROCEDURE: XR HIP W PEL IF DONE RT 2V INDICATIONS: Pain to lateral aspect, s/p fall TECHNIQUE: AP pelvis and lateral view of the hip acquired. COMPARISON: None. FINDINGS: Bones: Patient is status post right hip arthroplasty, with hardware components in expected positions. There is heterotopic ossifications. The visualized bony structures appear intact. Left hip degenerative changes. Soft tissues: Overlying postoperative changes are noted. No suspicious soft tissue densities. IMPRESSION: Status post right hip total arthroplasty without evidence of hardware complication. No radiographic evidence of acute fracture. If symptoms persist with conservative management, consider cross-sectional imaging such as CT or MRI. Approved by: Lorna Garcia M.D.,Ph.D. on 01/08/2024 at 11:45
--- NOTE | 2024-01-08 10:29 | DI.CT.S_ITS ---
PROCEDURE: CT HEAD/BRAIN WO CON INDICATIONS: Trauma TECHNIQUE: Noncontrast 4.5 mm thick angled axial sections acquired from the foramen magnum to the vertex, with coronal and sagittal reformats. For radiation dose reduction, the following was used: automated exposure control, adjustment of mA and/or kV according to patient size. COMPARISON: [facility], CT, CT HEAD/BRAIN WO CON, 12/26/2023, 6:20. FINDINGS: Image quality: Diagnostic. CSF spaces: Basal cisterns are patent. No extra-axial fluid collections. There is redemonstration generalized ventriculomegaly out of proportion to degree of atrophy. Brain: No intracranial bleeds or masses. There is cerebral volume loss for age, with resultant ventricular and sulcal prominence. There are periventricular and deep white matter chronic small vessel ischemic changes. There is intracranial internal carotid artery atherosclerosis. Skull and face: Calvarium and visualized facial bones appear intact, without suspicious lesions. Sinuses: Visualized sinuses and mastoids are clear. IMPRESSION: No acute intracranial pathology. Redemonstration of ventriculomegaly out of proportion to degree of cerebral atrophy. Differential diagnostic considerations include normal pressure hydrocephalus. If clinically relevant, consider additional confirmatory testing. Approved by: Lorna Garcia M.D.,Ph.D. on 01/08/2024 at 11:43
--- NOTE | 2024-01-08 10:29 | DI.CT.S_ITS ---
PROCEDURE: CT CERVICAL SPINE WO CON INDICATIONS: trauma TECHNIQUE: Noncontrast 3 mm thick sections acquired from the skull base to the T4 level. Sagittal and coronal reformats were then constructed. For radiation dose reduction, the following was used: automated exposure control, adjustment of mA and/or kV according to patient size. COMPARISON: None. FINDINGS: Image quality: Diagnostic Bones: No fractures or dislocations. Visualized superior ribs are intact. Multilevel degenerative changes. Soft tissues: Prevertebral soft tissues are normal in thickness. No paravertebral hematomas. No apical pneumothoraces. IMPRESSION: No acute displaced fracture or traumatic subluxation. Approved by: Lorna Garcia M.D.,Ph.D. on 01/08/2024 at 11:39
== END 2024-01-08 12:26 | disposition home or self-care (01) ==
PROVIDERS: Emergency Provider Student in an Organized Health Care Education/Training Program; Family Provider Family Medicine; PCP Family Medicine
DX: S09.90XA Unspecified injury of head, initial encounter (principal); M25.552 Pain in left hip; T14.8XXA Other injury of unspecified body region, initial encounter; W01.0XXA Fall on same level from slipping, tripping and stumbling without subsequent striking against object, initial encounter; Z79.01 Long term (current) use of anticoagulants
CPT/HCPCS: 70450; 72125; 73502; 99284